=== PATIENT | male | born 1995 | race African-American/Black ===

== ENCOUNTER 2020-07-17 18:45 | Emergency (ER) | payer OTHER, SELFPAY ==
[2020-07-17 18:47] VITALS: PULSE 103; RESP 16; TEMP 36.8; O2SAT 97; BMI 40.2
--- NOTE | 2020-07-17 19:20 | RAD_ITS ---
STUDY: X-RAY - LUMBAR SPINE REASON FOR EXAM: Male, 25 years old. Injury/Pain TECHNIQUE: 2 view(s) of the lumbar spine were obtained. COMPARISON: None FINDINGS: Normal lumbar lordosis. There is no substantial scoliosis. There is a normal alignment of the vertebrae. Normal vertebral bodies and endplates. Normal disc space heights. The soft tissue structures are unremarkable. RAD/Lumbar Spine 2 or 3 Views IMPRESSION: Normal x-ray examination of the lumbar spine. Electronically Signed: Tiana Kitchen MD at 20:08 EST Tel , Service support ,
--- NOTE | 2020-07-17 19:28 | ED.VIS.BACK ---
History of Present Illness Chief Complaint: Back Informant: Patient Onset: Today Injury: Fall Quality: Sharp Location: Lumbar Narrative: Patient is a 25-year-old male with no significant past medical history presenting for evaluation after a low back injury. Patient tripped and fell down the entire flight of stairs earlier today. He states he slid down the stairs on his backside. He thinks he might of hit his head slightly on the stairs but did not have any loss of consciousness. Denies any headache or head injury. He is not on any anticoagulation. He is having significant pain in his lower back which is what brought him in. He took 400 mg of ibuprofen about 6 hours prior to arrival. He is having a hard time walking because of the pain and he feels that he cannot support himself because his back is weak. He does not really appreciate weakness of his legs. He notes he has some tingling in his bilateral groins but no perineal numbness. No reported incontinence. Patient initially went to urgent care but was told the x-ray machine was down so he came to our ER instead. Past Medical History - Allergies and Home Meds Allergies/Adverse Reactions: Allergies No Known Allergies Allergy (Verified 07/17/20 18:51) Primary Care Physician: Scarlet Neff DO [STAFF PHYSICIAN] - Past Medical History: None Surgical History: noncontributory Review of Systems General: Denies: Chills, Fever, Sweats Eyes: Denies: Visual changes - bilaterally, Diplopia ENT: Denies: Rhinorrhea, Sore throat Cardiovascular: Denies: Chest pain, Palpitations Respiratory: Denies: Dyspnea, Cough, Dyspnea on exertion Gastrointestinal: Denies: Abdominal pain, Nausea, Vomiting, Diarrhea, Melena, Hematochezia Genitourinary: Denies: Dysuria, Hematuria, Frequency Musculoskeletal: Reports: Myalgias - back , Back pain. Denies: Swelling, Extremity Pain Skin: Denies: Rash, Wounds Neurological: Reports: Weakness - legs . Denies: Headache, Numbness Physical Exam Vital Signs/Narrative: Vital Signs Temp Pulse Resp Pulse Ox 07/17/20 18:47 98.2 F 103 H 16 97 Inital Vital Signs reviewed: Yes General: Well nourished, Well developed Head: Normocephalic, Atraumatic Eyes: Perrl, EOMI ENT: Moist mucous membranes, No rhinorrhea Neck: Supple, Nontender Cardiovascular: Regular rate, Regular rhythm, No murmurs Respiratory: No distress, CTA bilaterally, Chest nontender Abdomen: Soft, Nontender, Nondistended, Normal bowel sounds. Negative for: Guarding, Rebound tenderness Rectal: Deferred Back: Paraspinal Tenderness - left lumbar , Negative SLR - Right, Negative SLR - Left, - - hematoma left lower lumbar region . Negative for: Spinal tenderness, CVA tenderness Extremeties: Nontender, No edema Skin: Normal color, No rash Neuro: Alert, Oriented, Normal Strength, Normal Sensation, Normal DTR, - - Slow, painful gait. No foot drop appreciated.. Negative for: Parasthesia Psychological: Normal affect Diagnostic/Tx/Re-eval Clinical Impression(s) from Imaging Studies Lumbar Spine X-Ray 07/17/20 19:20 IMPRESSION: Normal x-ray examination of the lumbar spine. Electronically Signed: Tiana Kitchen MD at 20:08 EST Tel , Service support , - Medical Decision Making Patient is evaluated for back pain. He does not have any midline tenderness however given his mechanism injury I will obtain plain film. X-ray of the back performed. Is interpreted by myself as well as radiology. No acute process is seen. Patient is given a dose of IM morphine as well as Motrin for pain control. On reevaluation he is improved. He is able to ambulate in the ER. Patient does not have any red flag symptoms consistent with cauda equina syndrome. He is given return precautions including saddle anesthesia, worsening weakness of the legs or incontinence. Patient is counseled on signs and symptoms requiring return to the emergency room. Patient verbalizes agreement and understand this plan. Patient discharged home in stable and improved condition. ED Disposition - Plan for ED Patient: Disposition: Home or Assisted Living Diagnosis: Strain of lumbar spine, Lumbar contusion Instructions: ED Back Contusion Prescriptions: cycloBENZAPRine HCl [Flexeril] 10 mg PO TID PRN #20 tab PRN Reason: Muscle Spasm Prescription Printed Referrals: Scarlet Neff DO [STAFF PHYSICIAN] - Additional Instructions: Alternate 600 mg of ibuprofen and 650 mg of Tylenol every 6 hours for pain. Apply moist heat to your back. Return to the emergency room if you have increased difficulty walking, numbness in your genital region or incontinence.
[2020-07-17] MEDS: Morphine 4 MG/ML Syringe 6 MG IM (19:29)
[2020-07-17] MEDS: Ibuprofen 600 MG Tablet PO (19:29)
== END 2020-07-17 21:09 | disposition home or self-care (01) ==
PROVIDERS: Emergency Provider Emergency Medicine
DX: S39.012A Strain of muscle, fascia and tendon of lower back, initial encounter (principal); S30.0XXA Contusion of lower back and pelvis, initial encounter; W10.9XXA Fall (on) (from) unspecified stairs and steps, initial encounter; Y93.9 Activity, unspecified; Y92.9 Unspecified place or not applicable
CPT/HCPCS: 72100; 96372; 99283

== ENCOUNTER 2020-12-02 09:25 | Emergency (ER) | payer OTHER, SELFPAY ==
[2020-12-02] VITALS (7 sets, daily range): BP systolic 171–182; BP diastolic 111–132; PULSE 89–104; RESP 16–166; TEMP 36.2; O2SAT 95–100; BMI 34.7
--- NOTE | 2020-12-02 09:43 | EKG12_ITS ---
Test Reason : CP Blood Pressure : / mmHG Vent. Rate : 097 BPM Atrial Rate : 097 BPM P-R Int : 124 ms QRS Dur : 100 ms QT Int : 382 ms P-R-T Axes : 034 008 009 degrees QTc Int : 485 ms Normal sinus rhythm Cannot rule out Anterior infarct , age undetermined Abnormal ECG Confirmed by NANY HAYS, NEREYDA ([id number]), photography editor JARAD ESTRADA ([id number]) on 12/07/2020 9:08:45 AM Referred By: PAWEL Confirmed By:FRANCK AYON MD
[2020-12-02] MEDS: Aspirin 81 MG TAB.CHEW 324 MG PO (09:51)
--- NOTE | 2020-12-02 09:52 | RAD_ITS ---
STUDY: X-RAY CHEST REASON FOR EXAM: Male, 25 years old. Chest pain TECHNIQUE: Single AP portable view of the chest. COMPARISON: None. FINDINGS: EKG electrodes are seen. The lungs are clear and expanded. There is no demonstrated pleural abnormality. There is borderline cardiomegaly. Normal mediastinum and bharath. Normal visualized pulmonary arteries. Normal visualized aortic arch and descending thoracic aorta. Normal visualized thoracic spine. Normal visualized ribs, clavicles, and shoulders. There is no demonstrated abnormality of the visualized soft tissue structures of the upper abdomen. RAD/Chest 1 View (Portable) IMPRESSION: Borderline cardiomegaly. Electronically Signed: Matt Harris MD at 10:46 EDT , Service support ,
[2020-12-02 09:57] LABS: Absolute Lymphocyte Count 1.64 X10^3/uL (0.83-4.51); Absolute Neutrophil Count 3.6 X10^3/uL (2.0-7.7); Basophil# 0.08 X10^3/uL; Basophil% 1.3 % (0-1); Eosinophil# 0.29 X10^3/uL; Eosinophils% 4.7 % (0-5); Hematocrit 41.1 % (40-54); Hemoglobin 13.7 g/dL (13.0-16.5); Lymphocyte # 1.64 X10^3/ul (0.83-4.51); Lymphocyte % 26.7 % (19-41); Mean Corp Hgb Conc 33.3 g/dL (32-36); Mean Corpuscular Hgb 30.3 pg (27.0-32.0); Mean Corpuscular Volume 90.9 fL (80-94); Mean Platelet Vol. 10.7 fl (6.2-12.0); Monocyte# 0.53 X10^3/uL; Monocyte% 8.6 % (0-10); NRBC Flagged by Analyzer 0 % (0-5); Neutrophil # 3.56 X10^3/uL (2.7-7.7); Platelet Count 298 K/mm3 (150-450); RBC Distribution Width CV 11.9 % (11.6-14.6); RBC Distribution Width SD 39.5 fl (35.1-43.9); Red Blood Count 4.52 M/mm3 (4.6-6.2); White Blood Count 6.1 K/mm3 (4.4-11.0)
[2020-12-02 10:09] LABS: Anion Gap 8 (5-15); BUN 11 mg/dL (7-18); BUN/Creat Ratio 7.3 RATIO (10-20); Calcium,Total 9.1 mg/dL (8.5-10.1); Chloride 105 mmol/L (98-107); EST Glomerular Filtration Rate 59 mL/min (>60); Est Glom Filt Rate - Afr Amer 72 mL/min (>60); Estimated Creatinine Clearance 73.97 ml/min; Glucose 95 mg/dL (74-106); Potassium 3.7 mmol/L (3.5-5.1); Sodium Level 138 mmol/L (136-145)
--- NOTE | 2020-12-02 10:15 | EDS_ITS ---
HPI History of Present Illness Chief Complaint: Chest Pain Informant: patient and spouse/S.O. Onset/Context/Timing Onset: Today and Hours Activity at onset: sudden and light activity (Patient states he was getting ready for work) Timing: Continuous Quality: Positive for Pressure Location: Substernal Current Severity: Mild Maximum Severity: Moderate Worsened By: Nothing Relieved By: Nothing Associated Symptoms: Positive for Nausea, Diaphoresis, Dyspnea and Lightheadedness; Negative for Vomiting, Cough, Fever, Acid Reflux and Palpitations Narrative Narrative: Patient is a 25-year-old male who presents with midsternal chest heaviness that started this morning while getting ready for work. It was associated with dyspnea, diaphoresis and lightheadedness. There was also mild nausea initially. He is still having discomfort. The discomfort is no different than onset. Nothing exacerbated or makes it better. He denies black stool presently. He has had intermittent black stool because he has been taking Pepto-Bismol. He takes Pepto-Bismol because he has chronic diarrhea. There is a strong family history coronary disease at a young age, 30s. Patient denies fever, chills night sweats. He denies rhinorrhea, congestion postnasal drainage. He denies sore throat. [place] decreased hearing or ringing in his ears. He denies loss of taste or smell. He denies history of PE or DVT. He denies leg pain, swelling discoloration. He denies trauma. He denies back pain. Prior Similar Symptoms: No Recent Illness/Hospitalization: No CVD Risk Factors: Positive for Hypertension and Family History 1' </=55; Negative for Diabetes, Hypercholesterolemia and Smoking PE Risk Factors: Negative for Recent Travel/Surgery, Recent Immobilization, Prior DVT or PE, Cancer and OCP + Smoking + >/=35 TAD Risk Factors: Positive for Hypertension; Negative for Marfan's Syndrome and Family History [facility] Medical History Hypertension Home Medications cyclobenzaprine 10 mg PO TID PRN #20 tab 07/17/20 [Rx Last Taken Unknown] multivitamin with minerals 1 ea PO DAILY 07/17/20 [History Last Taken Unknown] omeprazole 20 mg PO DAILY 07/17/20 [History Last Taken Unknown] famotidine 20 mg PO QODAY 12/02/20 [History Last Taken Unknown] hydrochlorothiazide 12.5 mg PO DAILY #30 tab 12/02/20 [Rx Last Taken Unknown] lisinopril 20 mg PO DAILY 12/02/20 [History Last Taken Unknown] sucralfate 1 g PO DAILY 12/02/20 [History Last Taken Unknown] trazodone 50 mg PO QHS 12/02/20 [History Last Taken Unknown] Allergy/AdvReac Type Severity Reaction Status Date / Time No Known Allergies Allergy Verified 07/17/20 18:51 Social History (Updated 12/02/20 @ 10:[address] Sampson Suárez MD) household members: spouse Smoking Status: Current every day smoker tobacco type: e-cigarettes alcohol intake: current alcohol intake frequency: 0-2 drinks per day substance use type: does not use ROS ROS ED Constitutional Constitutional ED: Denies chills, fever(s), subjective, sweats or weight loss Eyes Eyes: Denies blurry vision or change in vision ENT ENT ED: Denies ear pain, rhinorrhea or sore throat Cardiovascular Cardiovascular: Reports as per HPI; Denies orthopnea, palpitations, paroxysmal nocturnal dyspnea or racing heartbeat Respiratory/Chest Respiratory/Chest: Reports dyspnea; Denies cough, dyspnea on exertion, orthopnea, paroxysmal nocturnal dyspnea or sputum Gastrointestinal Gastrointestinal: Reports melena and nausea; Denies abdominal pain, diarrhea or vomiting Genitourinary Genitourinary ED: Denies dysuria, hematuria or urinary frequency Musculoskeletal Musculoskeletal: Denies arthralgias, back pain, myalgias or neck pain Integumentary Denies abscess, Abrasions or rash Neurologic Neurologic: Denies headache(s), paresthesias or weakness Psychiatric Psychiatric: Denies anxiety or depression Endocrine Endocrinology: Denies polydipsia, polyphagia or polyuria Hematologic/Lymphatic Hematologic/Lymphatic: Denies easy bleeding or easy bruising EXAM Physical Exam Const Vital Signs: 12/02/20 09:26 12/02/20 09:53 12/02/20 11:00 Temperature 97.1 F L Temperature Source Temporal Pulse Rate 104 H 96 Respiratory Rate 16 26 H Blood Pressure 182/132 H 182/111 H Blood Pressure Mean 148 134 Pulse Ox 99 97 95 Oxygen Delivery Method Room Air Room Air Room Air 12/02/20 12:31 12/02/20 13:18 12/02/20 14:25 Temperature Temperature Source Pulse Rate 97 99 89 Respiratory Rate 28 H 24 H 166 H Blood Pressure 175/120 H 173/123 H 171/117 H Blood Pressure Mean 138 139 135 Pulse Ox 98 100 97 Oxygen Delivery Method Room Air Room Air Room Air Positive well nourished and well developed General Appearance ED: well developed HEENT Reports moist mucous membranes normocephalic and atraumatic Eyes PERRL and EOMs intact bilaterally General Eye ED: Negative for pale conjunctiva or scleral icterus Neck no lymphadenopathy, supple and no JVD Chest Wall inspection of chest normal and palpation of chest normal Resp normal respiratory effort and clear to auscultation bilaterally Effort and Inspection: respiratory distress Cardio regular rate, regular rhythm, S1 normal heart sound, S2 normal heart sound and no murmurs GI normal to inspection, nondistended, normoactive bowel sounds, soft to palpation, non-tender and non-distended Back/Spine no CVA tenderness and no thoracic nor lumbar tenderness Extremity normal to inspection Extremity Narrative: There is no asymmetry, swelling, discoloration, leg vein distention, palpable cords or tenderness along the distribution of the deep venous system. Neuro oriented x3 and no sensory deficits noted Sensorium / Orientation: awake and alert Motor Exam: strength 5/5 throughout Psych mental status grossly normal Skin no rashes or lesions noted and no wounds Heart Score History: Moderately Suspicious ECG: Nonspecific Repolarization Age: </= 45 years Risk Factors: 1 or 2 Risk Factors Score: 3 MDM MDM MDM Narrative Medical decision making narrative: Differential diagnosis includes cardiac versus noncardiac etiology. This is different than his GERD. Will rule out cardiac. EKG, chest appropriate blood work including troponin and 2-hour troponin was order Patient was treated with clonidine for his elevated blood pressure. There was slight improvement. Plan is to place patient on hydrochlorothiazide and have his blood pressure checked in 1 to 2 weeks. He also Was instructed on the importance of the diet. Lab Data Attestation: I reviewed the patient's lab results. Lab results narrative: Repeat troponin is lower than the initial. Both troponins were normal. Patient's creatinine is elevated 1.5. GFR however is 72. CBC and H&H are unremarkable. Labs: Laboratory Results - last 24 hr 12/02/20 12/02/20 12/02/20 09:50 09:50 09:50 WBC 6.1 RBC 4.52 L Hgb 13.7 Hct 41.1 MCV 90.9 MCH 30.3 MCHC 33.3 RDW Std Deviation 39.5 RDW Coeff of [place] 11.9 Plt Count 298 MPV 10.7 Immature Gran % (Auto) 0.700 Neut % (Auto) 58.0 Lymph % (Auto) 26.7 [place] % (Auto) 8.6 Eos % (Auto) 4.7 Baso % (Auto) 1.3 H Absolute Neuts (auto) 3.6 Absolute Lymphs (auto) 1.64 Nucleated RBC % 0 Sodium 138 Potassium 3.7 Chloride 105 Carbon Dioxide 25.0 Anion Gap 8 BUN 11 Creatinine 1.50 H Estim Creat Clear Calc 73.97 Est GFR (MDRD) Af Amer 72 Est GFR (MDRD) Non-Af 59 L BUN/Creatinine Ratio 7.3 L Glucose 95 Calcium 9.1 Troponin I High Sens 14.8 12/02/20 12:40 WBC RBC Hgb Hct MCV MCH MCHC RDW Std Deviation RDW Coeff of [place] Plt Count MPV Immature Gran % (Auto) Neut % (Auto) Lymph % (Auto) [place] % (Auto) Eos % (Auto) Baso % (Auto) Absolute Neuts (auto) Absolute Lymphs (auto) Nucleated RBC % Sodium Potassium Chloride Carbon Dioxide Anion Gap BUN Creatinine Estim Creat Clear Calc Est GFR (MDRD) Af Amer Est GFR (MDRD) Non-Af BUN/Creatinine Ratio Glucose Calcium Troponin I High Sens 13.4 Radiography Diagnostic Testing: Radiology Impression Chest X-Ray 12/02/20 09:52 IMPRESSION: Borderline cardiomegaly. Electronically Signed: Matt Harris MD at 10:46 EDT , Service support , EKG Initial EKG: Attestation: I personally reviewed and interpreted this EKG as follows: Interpretation: Sinus Rhythm (Normal sinus rhythm with ventricular rate 97. MN interval is 124 ms. Cures duration 100 ms. QT duration 382 ms. [place]am is normal. There is decreased anterior force with J-point elevation noted in the anterior leads.) Discharge Plan Triage Chief Complaint: Chest Pain Other Complaint: Dizziness ED Provider: Sampson Suárez Dx/Rx/DC Orders Clinical Impression: Pressure in chest, Accelerated essential hypertension Instructions: ED Chest Pain, Noncardiac, ED Hypertension, Established Prescriptions: New hydrochlorothiazide 12.5 mg tablet 12.5 mg PO DAILY Qty: 30 RF: 0 No Action multivitamin with minerals 1 EACH tablet 1 ea PO DAILY RF: 0 omeprazole 20 MG tablet,delayed release (DR/EC) 20 mg PO DAILY RF: 0 cyclobenzaprine 10 MG tablet 10 mg PO TID PRN (Reason: Muscle Spasm) Qty: 20 RF: 0 trazodone 50 mg tablet 50 mg PO QHS RF: 0 sucralfate 1 gram tablet 1 g PO DAILY RF: 0 lisinopril 20 mg tablet 20 mg PO DAILY RF: 0 famotidine 20 mg tablet 20 mg PO QODAY RF: 0 Primary Care Provider: Care Physician,No Primary Referrals: Care Physician,No Primary [Primary Care Provider] - Activity Restrictions/Additional Instructions: You should not add any salt to your food. You should check salt content. You should follow-up with your doctor in 1 to 2 weeks for repeat blood pressure check the prescriptionFor a new blood pressure med was written for and will cause you to have increased urination for the next 1 to 2 weeks.
[2020-12-02 10:20] LABS: Troponin-I HS 14.8 pg/mL (3.0-78.5)
[2020-12-02 13:00] LABS: Troponin-I HS 13.4 pg/mL (3.0-78.5)
[2020-12-02] MEDS: cloNIDine HCl 0.1 MG Tablet PO (13:17)
== END 2020-12-02 15:32 | disposition home or self-care (01) ==
LOC: ED 10:20
PROVIDERS: Emergency Provider Emergency Medicine
DX: R07.89 Other chest pain (principal); I10 Essential (primary) hypertension; K52.9 Noninfective gastroenteritis and colitis, unspecified; Z79.899 Other long term (current) drug therapy; F17.290 Nicotine dependence, other tobacco product, uncomplicated
CPT/HCPCS: 71045; 80048; 84484; 85025; 93005; 99285; A4216

== ENCOUNTER 2020-12-23 22:04 | Emergency (ER) | payer OTHER, SELFPAY ==
[2020-12-23 22:05] VITALS: BP 168/114; PULSE 99; RESP 18; TEMP 36.1; O2SAT 99; BMI 35.9
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
== END 2020-12-24 00:26 | disposition home or self-care (01) ==
PROVIDERS: Emergency Provider Student in an Organized Health Care Education/Training Program
DX: S50.871A Other superficial bite of right forearm, initial encounter (principal); S40.021A Contusion of right upper arm, initial encounter; Y04.1XXA Assault by human bite, initial encounter; Y93.9 Activity, unspecified; Y92.9 Unspecified place or not applicable; I10 Essential (primary) hypertension; K21.9 Gastro-esophageal reflux disease without esophagitis; K58.9 Irritable bowel syndrome, unspecified; Z79.899 Other long term (current) drug therapy; F17.290 Nicotine dependence, other tobacco product, uncomplicated
CPT/HCPCS: 99282

== ENCOUNTER 2021-05-18 06:47 | Inpatient (IN) | payer OTHER, SELFPAY ==
[2021-05-18] VITALS (11 sets, daily range): BP systolic 113–212; BP diastolic 77–156; PULSE 78–129; RESP 16–25; TEMP 36.3–36.7; O2SAT 96–100; BMI 34.1; BMI 34.7
--- NOTE | 2021-05-18 07:13 | RAD_ITS ---
STUDY: X-RAY CHEST REASON FOR EXAM: Male, 26 years old. Sob TECHNIQUE: Single AP portable view of the chest. COMPARISON: Comparison is made with prior study dated 12/02/2020. FINDINGS: EKG electrodes are seen. The lungs are clear and expanded. There is no demonstrated pleural abnormality. There is borderline cardiomegaly. Normal mediastinum and bharath. Normal visualized pulmonary arteries. Normal visualized aortic arch and descending thoracic aorta. Normal visualized thoracic spine. Normal visualized ribs, clavicles, and shoulders. There is no demonstrated abnormality of the visualized soft tissue structures of the upper abdomen. RAD/Chest 1 View (Portable) IMPRESSION: Borderline cardiomegaly. Electronically Signed: Matt Harris MD at 9:00 EST , Service support ,
--- NOTE | 2021-05-18 07:14 | EKG12_ITS ---
Test Reason : Blood Pressure : / mmHG Vent. Rate : 112 BPM Atrial Rate : 112 BPM P-R Int : 124 ms QRS Dur : 092 ms QT Int : 408 ms P-R-T Axes : 038 000 038 degrees QTc Int : 556 ms Sinus tachycardia Prolonged QT Abnormal ECG Confirmed by NAT HAYS, ALBERTO ([id number]), film and video editor JARAD ESTRADA ([id number]) on 05/19/2021 11:41:54 AM Referred By: RASHAUN Confirmed By:ALBERTO JOHNS MD
--- NOTE | 2021-05-18 07:33 | EDS_ITS ---
HPI History of Present Illness Chief Complaint: Suicidal Narrative Narrative: Patient presents about 8 hours or so since overdosing on about 20 tabs of Tylenol, about a cup of bleach and 2 L of vodka. He arrives via EMS, he is vomiting. He was at a hotel and woke up this morning afterwards in significant distress. He tells me he wanted to hurt himself because he ended a 2-year relationship and he has no one left in his life. Right now his only somatic complaint is feeling ill and anxious as well as quite nauseated. No hemoptysis. No other drugs. [facility] Medical History GERD (gastroesophageal reflux disease) Hypertension Irritable bowel syndrome (IBS) Pre-employment examination Home Medications omeprazole 20 mg PO DAILY 07/17/20 [History Last Taken Unknown] famotidine 20 mg PO QODAY 12/02/20 [History Last Taken Unknown] Allergy/AdvReac Type Severity Reaction Status Date / Time No Known Allergies Allergy Verified 05/18/21 06:49 Surgical History no surgical history Social History household members: spouse Smoking Status: Current every day smoker tobacco type: e-cigarettes alcohol intake: current alcohol intake frequency: 0-2 drinks per day substance use type: does not use ROS ROS ED ROS Narrative Past medical history: Reviewed Medications: Reviewed Social history: As in HPI Review of systems: All systems negative except as indicated General: No fever. He tells me he feels ill. Eyes: No visual changes ENT: No upper airway congestion, normal voice Neck: No neck pain Cardiovascular: No chest pain Respiratory: No shortness of breath or cough Gastrointestinal: No abdominal pain. He is complaining of nausea and vomiting no diarrhea Genitourinary: No dysuria Musculoskeletal: Denies myalgias no difficulty with ambulation Skin: No rash Neurological: No memory loss, confusion or any focal weakness Psych: SI as in HPI. He feels quite anxious Hematologic: No easy bleeding or easy bruising EXAM Physical Exam Narrative Exam Narrative: Physical exam General: Patient does appear in some distress. He is actively vomiting as I walk into the room Head: Normocephalic, Atraumatic Eyes: Conjunctiva not pale ENT: Somewhat dry mucous membranes Neck: Supple, Nontender, No lymphadenopathy Cardiovascular: Regular tachycardia. No obvious murmur Respiratory: No distress, CTA bilaterally Abdomen: Soft, Nontender, Nondistended Back: Nontender, Normal Inspection. Negative for: CVA tenderness Extremities: Nontender, No edema Skin: Normal color, No rash Neurological: Alert, Normal Strength, Normal Sensation Psychological: Normal affect Const Vital Signs: 05/18/21 06:52 05/18/21 10:48 Temperature 97.4 F L Temperature Source Temporal Pulse Rate 129 H 107 H Respiratory Rate 25 H 20 H Blood Pressure 212/156 H 199/132 H Blood Pressure Mean 174 154 Pulse Ox 100 99 Oxygen Delivery Method Room Air Room Air MDM MDM MDM Narrative Medical decision making narrative: Patient has a normal work-up, proved his nausea significantly improved he was observed in the ED, I asked psychiatric liaison for placement for suicidal ideations. Lab Data Labs: Laboratory Results - last 24 hr 05/18/21 05/18/21 05/18/21 07:00 07:00 07:00 WBC 9.2 RBC 5.69 Hgb 17.3 H Hct 49.5 MCV 87.0 MCH 30.4 MCHC 34.9 RDW Std Deviation 38.5 RDW Coeff of [place] 12.1 Plt Count 354 MPV 11.8 Immature Gran % (Auto) 0.400 Neut % (Auto) 78.6 H Lymph % (Auto) 13.7 L [place] % (Auto) 6.0 Eos % (Auto) 0.4 Baso % (Auto) 0.9 Absolute Neuts (auto) 7.3 Absolute Lymphs (auto) 1.26 Nucleated RBC % 0 Sodium 138 Potassium 3.0 L Chloride 99 Carbon Dioxide 26.0 Anion Gap 13 BUN 9 Creatinine 1.91 H Estim Creat Clear Calc 57.58 Est GFR (MDRD) Af Amer 54 L Est GFR (MDRD) Non-Af 45 L BUN/Creatinine Ratio 4.7 L Glucose 157 H Calcium 10.0 TSH 1.23 Salicylates < 1.7 L Urine Opiates Screen Urine Methadone Screen Acetaminophen < 2.0 L Ur Barbiturates Screen Ur Phencyclidine Scrn Ur Amphetamines Screen U Methamphetamin-MDMA U Benzodiazepines Scrn Urine Cocaine Screen U Cannabinoids Screen Ur Drug Screen Comment Ethyl Alcohol 05/18/21 05/18/21 07:00 07:30 WBC RBC Hgb Hct MCV MCH MCHC RDW Std Deviation RDW Coeff of [place] Plt Count MPV Immature Gran % (Auto) Neut % (Auto) Lymph % (Auto) [place] % (Auto) Eos % (Auto) Baso % (Auto) Absolute Neuts (auto) Absolute Lymphs (auto) Nucleated RBC % Sodium Potassium Chloride Carbon Dioxide Anion Gap BUN Creatinine Estim Creat Clear Calc Est GFR (MDRD) Af Amer Est GFR (MDRD) Non-Af BUN/Creatinine Ratio Glucose Calcium TSH Salicylates Urine Opiates Screen NEGATIVE Urine Methadone Screen NEGATIVE Acetaminophen Ur Barbiturates Screen NEGATIVE Ur Phencyclidine Scrn NEGATIVE Ur Amphetamines Screen NEGATIVE U Methamphetamin-MDMA NEGATIVE U Benzodiazepines Scrn NEGATIVE Urine Cocaine Screen NEGATIVE U Cannabinoids Screen NEGATIVE Ur Drug Screen Comment Ethyl Alcohol 7.0 ABG Data ABG results: ABG 05/18/21 08:51 Specimen Type JANNIE VBG pH 7.39 VBG pO2 34 VBG HCO3 28 H VBG Total CO2 29 VBG O2 Sat (Calc) 64 VBG Base Excess 3 POC Mix VBG pCO2 Pt Tmp 45.4 Radiography Diagnostic Testing: Clinical Impression(s) from Imaging Studies Chest X-Ray 05/18/21 07:13 IMPRESSION: Borderline cardiomegaly. Electronically Signed: Matt Harris MD at 9:00 EST , Service support , Discharge Plan Triage Chief Complaint: Suicidal ED Provider: Nash Lowe Dx/Rx/DC Orders Clinical Impression: Overdose, Suicide gesture Prescriptions: No Action omeprazole 20 MG tablet,delayed release (DR/EC) 20 mg PO DAILY RF: 0 famotidine 20 mg tablet 20 mg PO QODAY RF: 0 Primary Care Provider: Care Physician,No Primary Referrals: Care Physician,No Primary [Primary Care Provider] - Disposition Disposition: Transfer to Another Type HCF
[2021-05-18 07:48] LABS: Absolute Lymphocyte Count 1.26 X10^3/uL (0.83-4.51); Absolute Neutrophil Count 7.3 X10^3/uL (2.0-7.7); Basophil# 0.08 X10^3/uL; Basophil% 0.9 % (0-1); Eosinophil# 0.04 X10^3/uL; Eosinophils% 0.4 % (0-5); Hematocrit 49.5 % (40-54); Hemoglobin 17.3 g/dL (13.0-16.5); Lymphocyte # 1.26 X10^3/ul (0.83-4.51); Lymphocyte % 13.7 % (19-41); Mean Corp Hgb Conc 34.9 g/dL (32-36); Mean Corpuscular Hgb 30.4 pg (27.0-32.0); Mean Platelet Vol. 11.8 fl (6.2-12.0); Monocyte# 0.55 X10^3/uL; NRBC Flagged by Analyzer 0 % (0-5); Neutrophil # 7.25 X10^3/uL (2.7-7.7); Neutrophil % 78.6 % (47-70); Platelet Count 354 K/mm3 (150-450); RBC Distribution Width CV 12.1 % (11.6-14.6); RBC Distribution Width SD 38.5 fl (35.1-43.9); Red Blood Count 5.69 M/mm3 (4.6-6.2); White Blood Count 9.2 K/mm3 (4.4-11.0)
[2021-05-18] MEDS: LORazepam 2 MG/ML Syringe 0.5 MG IV (07:48)
[2021-05-18] MEDS: 0.9% Normal Saline 1,000 ML 999 ML IV (07:48)
[2021-05-18] MEDS: Ondansetron 4 MG/2 ML Vial IV ×2 (07:48→21:38)
[2021-05-18 08:01] LABS: Amphetamine Urine VISTA NEGATIVE (<1000 ng/mL); Barbiturate Urine VISTA NEGATIVE (< 200 ng/mL); Benzodiazepine Urine VISTA NEGATIVE (< 200 ng/mL); Cocaine Urine VISTA NEGATIVE (< 300 ng/mL); Ecstacy Urine VISTA NEGATIVE (< 500 ng/mL); Methadone Urine VISTA NEGATIVE (< 300 ng/mL); PCP Urine VISTA NEGATIVE (< 25 ng/mL); THC Urine VISTA NEGATIVE (< 50 ng/mL); Vista UDS pH Range 6
[2021-05-18 08:09] LABS: Anion Gap 13 (5-15); BUN 9 mg/dL (7-18); BUN/Creat Ratio 4.7 RATIO (10-20); Chloride 99 mmol/L (98-107); Creatinine, Serum 1.91 mg/dL (0.70-1.30); EST Glomerular Filtration Rate 45 mL/min (>60); Est Glom Filt Rate - Afr Amer 54 mL/min (>60); Estimated Creatinine Clearance 57.58 ml/min; Glucose 157 mg/dL (74-106); Sodium Level 138 mmol/L (136-145); Thyroid Stim Hormone (TSH) 1.23 uIU/mL (0.358-3.74)
[2021-05-18 08:14] LABS: Acetaminophen (Tylenol) Level < 2.0 ug/mL (10.0-30.0); Salicylate < 1.7 mg/dL (2.8-20.0)
[2021-05-18] MEDS: Labetalol (Prefilled) 20 MG/4 ML IV (08:21)
[2021-05-18 08:56] LABS: Blood Gas Specimen Type VEN; VBG BASE EXCESS 3 mmol/L (-1.0-3.5); VBG Bicarbonate 28 mmol/L (22-26); VBG PO2 34 mmHg (25-40); VBG SO2 64 % (50-70); VBG TCO2 29 mmol/L (23-33); VBG pCO2 45.4 mmHg (41-51); VBG pH 7.39 (7.32-7.42)
[2021-05-18] MEDS: Metoclopramide 10 MG/2 ML Vial IV (10:00)
[2021-05-18] MEDS: DiphenhydrAMINE 50 MG/ML Syringe 25 MG IV (10:00)
[2021-05-18] MEDS: Famotidine 200 MG/20 ML MDV 20 MG in 0.9% Normal Saline (Pres. free 8 ML 300 MG IV (10:07)
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
--- NOTE | 2021-05-18 10:57 | CM.ED ---
Addendum entered by Chantelle Bullard 05/18/21 11:58: ARNOLDO received phone call from [employer]. She requested EKG and patient's policy number. ARNOLDO faxed copy of EKG and policy number to [employer]. ARNOLDO called Mahnaz at [facility] and advised that SW had faxed EKG and policy number. ARNOLDO was advised by Yessi in Registration that [facility] confirmation is currently down so she is unable to confirm patient's insurance. Chanetlle TRINIDAD Original Note: ARNOLDO Note ARNOLDO called [facility] and spoke to Cebolla. They have beds. ARNOLDO faxed referral to [facility] for their review. Chantelle TRINIDAD
[2021-05-18] MEDS: hydroCHLOROthiazide 12.5mg 12.5 MG PO (11:30)
[2021-05-18] MEDS: Lisinopril 20 MG Tablet PO (11:31)
--- NOTE | 2021-05-18 12:56 | CM.ED ---
ARNOLDO Note ARNOLDO received call from Nicki at [facility]. Patient has had his insurance confirmed by staff at [facility]. Accepting MD is Michael. RN to RN is [phone]. Room to be assigned on admission. Nicki requested updated blood pressure. ARNOLDO faxed blood pressure results to Nicki. Nicki stated that she will speak to [facility] regarding what they want to do in regards to patient's blood pressure. [facility] is unable to provide transport at this time. ARNOLDO will continue to be available for discharge planning. Chantelle TRINIDAD
[2021-05-18] MEDS: Metoprolol Tartrate 100 MG Tablet PO (13:31)
--- NOTE | 2021-05-18 14:10 | CM.ED ---
SW Note ARNOLDO spoke to Nicki at [facility]. Their JOURNEYMAN ELECTRICIAN PV INSTALLER wanted patient's BP to be under 150/100. At 2pm the BP was 187/143. ARNOLDO updated Nicki at [facility]. Chantelle TRINIDAD
--- NOTE | 2021-05-18 14:25 | CM.ED ---
ARNOLDO Note RN Mirian advised that patient is being admitted. ARNOLDO called Nicki at [facility] [phone]. Advised that patient is being admitted. Nicki stated that she feels the facility will be ok with having a preliminary acceptance for a few days but to just keep them updated about his status. ARNOLDO spoke with patient and updated him that he will be admitted to the acute unit. ARNOLDO updated RN that Nicki from [facility] state that she felt the facility would be ok with having a preliminary acceptance of patient for a few days. Plan: Patient will need to be pink slipped from acute to accepting facility at discharge. Chantelle TRINIDAD
[2021-05-18] MEDS: hydrALAZINE 20 MG/ML Vial IV (14:41)
--- NOTE | 2021-05-18 14:53 | NURSING ---
pcu obs elgin hypertension
--- NOTE | 2021-05-18 15:02 | HP.PCM.HOS_ITS ---
HPI - General General Date of Admission: 05/18/21 Date of Service: 05/18/21 Chief Complaint: Intentional OD HPI Narrative EDU WILCOX, is a 26 M who presented to the emergency department at [facility] on 05/18/2021 this morning after overdosing on 20 tablets of Tylenol, a cup of bleach and vodka. Upon arrival to the emergency department at 730 this morning. He was vomiting and having hematemesis. He states he consumed the above at approximately 1030 last night and awoke at about 130 or 2 with intense abdominal pain nausea and vomiting with hematemesis. His symptoms continued and at about 6:00 this morning he called the squad to get help as he continued to feel ill. Apparently he attempted to hurt himself secondary to the end of a 2-year relationship and he feels he has no one left in his life. He is an [employer] . Upon arrival he continued to feel quite nauseated and had elevated blood pressure. I was actually called for admission for persistently elevated high blood pressure. The patient indicates that he has been on antihypertensives in the past but stopped taking them approximately a year ago. He does not give a reason for discontinuing these. It appears from previous records he had been on lisinopril. He was treated symptomatically in the emergency department and his symptoms improved and he was given a diet with the intent to discharge him to a psychiatric hospital but his blood pressure remained elevated and they wanted his systolic pressure persistently less than 150 prior to excepting him. He was afebrile throughout his ED visit he had intermittent tachycardia with his heart rate maximally at 129, his blood pressure remained consistently elevated from 138/212 systolic over 156/101 diastolic his heart rate respiratory rate and oxygen saturation were normal. His CBC was overall unremarkable with a hemoglobin of 17.3. His BMP shows a mild hypokalemia with potassium of 3.0, BUN of 9 and a serum creatinine of 1.91. He had lab work done in November of this year and his serum creatinine was 1.5 at that time. A liver panel was not obtained. His TSH was normal and his serum glucose was 157. Talk screen was done and shows negative for salicylates and acetaminophen with no other substances on board other than an alcohol level of 7. His chest x-ray is unremarkable. His EKG shows no signs of ST-T wave changes consistent with ischemia but does show marked LVH. He has been accepted to a psychiatric facility but his blood pressures remain elevated and we were therefore called for admission to obtain improved blood pressure control prior to discharge. [facility] Medical History (Updated 05/18/21 @ 15:[address] Veena Anderson DO) GERD (gastroesophageal reflux disease) Hypertension Irritable bowel syndrome (IBS) Pre-employment examination PUD (peptic ulcer disease) Stage 3b chronic kidney disease (CKD) Tobacco abuse Home Medications hydrochlorothiazide 25 mg PO DAILY 05/18/21 [History Last Taken 2 Weeks Ago ~05/04/21] lisinopril 20 mg PO DAILY 05/18/21 [History Last Taken 2 Weeks Ago ~05/04/21] omeprazole 40 mg PO DAILY 05/18/21 [History Last Taken 2 Weeks Ago ~05/04/21] sucralfate 1 g PO 4X/DAY 05/18/21 [History Last Taken 2 Weeks Ago ~05/04/21] Allergy/AdvReac Type Severity Reaction Status Date / Time No Known Allergies Allergy Verified 05/18/21 06:49 Family History (Updated 05/18/21 @ 15:[address] Veena Anderson DO) Other Diabetes Hypertension Surgical History no surgical history no surgical history Social History household members: spouse Smoking Status: Current every day smoker tobacco type: e-cigarettes alcohol intake: current alcohol intake frequency: 0-2 drinks per day substance use type: does not use ROS Constitutional Constitutional: Denies anorexia, change in weight, chills, fatigue, fever(s), malaise, night sweats, weakness or other Eyes Eyes: Denies blurry vision, change in eye color, change in vision, discharge from eye(s), double vision, erythema, eye pain, loss of vision or other ENT HEENT: Denies abnormal hearing, dysphagia, ear pain, epistaxis, headache(s), hearing loss, nasal congestion, nasal discharge, post nasal drip, sinus pressure, sore throat or other Cardiovascular Cardiovascular: Denies chest pain, claudication, dyspnea on exertion, edema, lightheadedness, orthopnea, palpitations, paroxysmal nocturnal dyspnea, rapid heart rate, syncope or other Respiratory/Chest Respiratory/Chest: Denies cough, dyspnea, excessive phlegm production, hemoptysis, productive cough, shortness of breath at rest, shortness of breath with exertion, wheezing or other Gastrointestinal Gastrointestinal: Reports abdominal pain, dyspepsia, hematemesis, nausea and vomiting; Denies coffee ground emesis, constipation, diarrhea, hematochezia, loose stools, melena or other Genitourinary Genitourinary: Denies burning urination, difficulty urinating, dysuria, hematuria, nocturia, urinary frequency, urinary hesitancy, urinary incontinence, urinary urgency or other Musculoskeletal Musculoskeletal: Denies arthralgias, back pain, joint pain, joint stiffness, joint swelling, myalgias, neck pain or other Neurologic Neurologic: Denies abnormal gait, abnormal speech, confusion, disequilibrium, dizziness, focal weakness, headache(s), numbness, paresthesias, seizure-like activity, seizures, syncope, tingling, tremor(s) or other Psychiatric Psychiatric: Reports depression and suicidal ideation; Denies anxiety, homicidal ideation or other Endocrine Endocrinology: Denies change in body appearance, cold intolerance, excessive sweating, heat intolerance, polydipsia, polyuria or other Hematologic/Lymphatic Hematologic/Lymphatic: Denies anemia, easy bleeding, easy bruising, lymphadenopathy or other Allergic/Immunologic Allergic/Immunologic: Denies rhinitis, hives, eczemia, asthma or other Vital Signs Vital Signs Vital Signs: 05/18/21 06:52 05/18/21 10:48 05/18/21 11:56 Temperature 97.4 F L Temperature Source Temporal Pulse Rate 129 H 107 H 88 Respiratory Rate 25 H 20 H 16 Blood Pressure 212/156 H 199/132 H 138/101 H Blood Pressure Mean 174 154 113 Pulse Ox 100 99 99 Oxygen Delivery Method Room Air Room Air Room Air 05/18/21 12:46 Temperature Temperature Source Pulse Rate 113 H Respiratory Rate 18 Blood Pressure 198/141 H Blood Pressure Mean 160 Pulse Ox 96 Oxygen Delivery Method Room Air Weight Weight: 104.8 kg Body Mass Index (BMI) 34.1 Physical Exam Const alert, oriented x3, no apparent distress, healthy appearing and well nourished Constitutional Narrative: Overweight, Young -[place] male lying in bed, appears comfortable and nontoxic, very pleasant, sitter at bedside General Appearance: cooperative HEENT normocephalic, head/scalp atraumatic, hearing grossly normal bilaterally and moist oral mucous membranes HEENT Narrative: Dentition is good, Mallampati is 2-3, no mucosal abnormalities noted in the posterior pharynx Eyes PERRL, EOMs intact bilaterally and conjunctivae normal Eyes Narrative: No scleral icterus Neck no lymphadenopathy, supple, no JVD and no carotid bruits Neck Narrative: Trachea midline, no thyroid enlargement noted Resp normal respiratory effort, no retractions, no use of accessory muscles and clear to auscultation bilaterally Auscultation: Negative for crackles, rales, rhonchi or wheezes Cardio regular rhythm, S1 normal heart sound, S2 normal heart sound, no murmurs, no rub, no clicks and no JVD; Negative for no gallops Cardio Narrative: Mild tachycardia, S4 gallop GI normal to inspection, nondistended, normoactive bowel sounds, soft to palpation and non-distended; Negative for hepatosplenomegaly Palpation: tender epigastric Extremity no clubbing, cyanosis or edema Peripheral Pulses: Yes pulses 2+ throughout Skin no rashes or lesions noted, no wounds, skin turgor normal, no jaundice, no petechiae and no mottling Neuro oriented x3, CN's II-XII intact bilaterally, moves all extremities and no focal motor deficits Sensorium / Orientation: awake and alert Speech: speech normal Motor Exam: strength 5/5 throughout Psych affect normal Results Lab / Micro Data Result Diagrams: 05/18/21 07:00 05/18/21 07:00 Labs: Laboratory Results - last 24 hr 05/18/21 07:00: Salicylates < 1.7 L, Acetaminophen < 2.0 L 05/18/21 07:00: Sodium 138, Potassium 3.0 L, Chloride 99, Carbon Dioxide 26.0, Anion Gap 13, BUN 9, Creatinine 1.91 H, Estim Creat Clear Calc 57.58, Est GFR (MDRD) Af Amer 54 L, Est GFR (MDRD) Non-Af 45 L, BUN/Creatinine Ratio 4.7 L, Glucose 157 H, Calcium 10.0, TSH 1.23 05/18/21 07:00: WBC 9.2, RBC 5.69, Hgb 17.3 H, Hct 49.5, MCV 87.0, MCH 30.4, MCHC 34.9, RDW Std Deviation 38.5, RDW Coeff of [place] 12.1, Plt Count 354, MPV 11.8, Immature Gran % (Auto) 0.400, Neut % (Auto) 78.6 H, Lymph % (Auto) 13.7 L, [place] % (Auto) 6.0, Eos % (Auto) 0.4, Baso % (Auto) 0.9, Absolute Neuts (auto) 7.3, Absolute Lymphs (auto) 1.26, Nucleated RBC % 0 05/18/21 07:00: Ethyl Alcohol 7.0 05/18/21 07:30: Urine Opiates Screen NEGATIVE, Urine Methadone Screen NEGATIVE, Ur Barbiturates Screen NEGATIVE, Ur Phencyclidine Scrn NEGATIVE, Ur Amphetamines Screen NEGATIVE, U Methamphetamin-MDMA NEGATIVE, U Benzodiazepines Scrn NEGATIVE, Urine Cocaine Screen NEGATIVE, U Cannabinoids Screen NEGATIVE, Ur Drug Screen Comment Micro: Microbiology 05/18/21 08:17 Nasal Secretion SARS-CoV-2 Antigen (Rapid) - Final ABG Data ABG results: ABG 05/18/21 08:51 Specimen Type JANNIE VBG pH 7.39 VBG pO2 34 VBG HCO3 28 H VBG Total CO2 29 VBG O2 Sat (Calc) 64 VBG Base Excess 3 POC Mix VBG pCO2 Pt Tmp 45.4 Radiology Impression Chest X-Ray 05/18/21 07:13 IMPRESSION: Borderline cardiomegaly. Electronically Signed: Matt Harris MD at 9:00 EST , Service support , Assessment & Plan Assessment/Plan (1) Overdose: (2) Suicide gesture: (3) JULIANNA (acute kidney injury): (4) Bleach ingestion: (5) Accelerated essential hypertension: (6) Hypokalemia: PLAN: Intentional overdose -Patient consumed marked amounts of alcohol, 20 tablets of Tylenol and bleach last evening at around 1030 to 11 PM -Tylenol level is less than 2 and therefore given timeframe should be out of the window for any danger related to Tylenol overdose -We will check liver functions and repeat Tylenol level in a.m. -Most concerning of the overdoses is the bleach. -Did have episodes of hematemesis prior to presentation -Cycle hemoglobin x2 for stability -No current signs of GI bleeding -Protonix drip with bolus -Continue home Carafate -GI consultation for probable EGD--> Case was discussed with GI -N.p.o. -Continue sitter -We will need psychiatric facility at discharge--> Case management following JULIANNA on CKD stage IIIb -Baseline serum creatinine appears to be 1.5 -Current serum creatinine is 1.9 -We will give 1 L normal saline at 75 cc/h -Repeat lab in a.m. -Suspect CKD may be related to uncontrolled hypertension Uncontrolled hypertension -Patient is n.p.o. -Labetalol 40 mg every 4 hours scheduled with hold parameters -Hydralazine 10 mg every 6 hours scheduled with hold parameters -Transition to oral medications once esophagus is cleared by GI -Needs a goal systolic less than 150 consistently to go to psychiatric facility -Appears from previous records patient had been on lisinopril in the past Hypokalemia -40 mill equivalents IV potassium bolus -Recheck in a.m. -Check a magnesium level Hyperglycemia -Patient with family history of diabetes -Check hemoglobin A1c Suicidal ideation with attempt -Sitter -Psychiatric facility at discharge -Management is following History of tobacco abuse -Vapes at baseline -Assess for nicotine replacement therapy DVT prophylaxis -None -Risk is low -Patient with hematemesis as well therefore relatively contraindicated -Early mobilization CODE STATUS -Full code Charges/Coding Visit Charges Inpatient E&M: 57715 Init Hosp L3
--- NOTE | 2021-05-18 15:26 | ED.RN ---
UNABLE TO COMPLETE AMISSION ASSESSMENT D/T CCOMPUTER ISSUES. PT CCURRENT BP AT 152/94, 92,18
--- NOTE | 2021-05-18 15:51 | ED.RN ---
PT ACCEPTANCE AT [facility] WILL REMAIN ACTIVE FOR 24-48 HOURS
[2021-05-18 16:05] LABS: AST(SGOT) 119 U/L (15-37); Alanine Aminotransfer ALT/SGPT 188 U/L (16-61); Albumin, Serum 3.7 g/dL (3.2-5.0); Alkaline Phosphatase 103 U/L (45-117); Bilirubin, Direct 0.23 mg/dL (0.00-0.30); Globulin 5.5 g/dL (2.2-4.2); Protein, Total 9.2 g/dL (6.4-8.2)
--- NOTE | 2021-05-18 16:11 | CHAPLAIN ---
Type of Pastoral Visit ___ Initial Visit ___ Follow-up Visit ___ On-call Visit ___ General Patient Visit ___ Spiritual Assessment ___ Family Conference ___ Bereavement ___ Rapid Response ___ Code Blue ___ Other (describe below) Pastoral Care Referral From ___ Patient ___ Family ___ Nurse ___ Physician ___ Trimming Inspector ___ Insole And Outsole Preparer ___ Other (describe below) Sacrament/Intervention ___ Active listening ___ Anointing ___ Gnosticism ___ Bereavement ___ Communion ___ Elis exploration ___ ___ Life review ___ Prayer ___ Reconciliation ___ Sacrament of Sick ___ Supportive presence ___ Wedding ___ Other (describe below) Pastoral Comments patient was assigned to 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
--- NOTE | 2021-05-18 18:06 | CON.PCM.GI_ITS ---
HPI Consult Data Date of Consult: 05/18/21 HPI Narrative HPI Narrative: EDU WILCOX, is a 26 M who presents to [facility] emergency department after trying to commit suicide patient related to taking 20 tablets of Tylenol with a Styrofoam cup of bleach and a Styrofoam cup of vodka. Patient tried the commit suicide after breaking up with his significant other. He is an [employer] . At this time he is having some mild shaking. He says that he has been drinking more than he normally has in the past. He has no history of alcoholism, acute or chronic hepatitis, alcoholic hepatitis and no previous suicide attempts. In the ED he was no to be hypertensive and tachycardic. He was also noted to have mild renal insufficiency. His salicylate level in the emergency room was normal and his alcohol level was 7. At this time he is experiencing some mild chest discomfort and some esophageal dysphagia. All other 16 review of systems are negative except the pertinent positive mentioned HPI. [facility] Medical History GERD (gastroesophageal reflux disease) Hypertension Irritable bowel syndrome (IBS) Pre-employment examination PUD (peptic ulcer disease) Stage 3b chronic kidney disease (CKD) Tobacco abuse Home Medications hydrochlorothiazide 25 mg PO DAILY 05/18/21 [History Last Taken 2 Weeks Ago ~05/04/21] lisinopril 20 mg PO DAILY 05/18/21 [History Last Taken 2 Weeks Ago ~05/04/21] omeprazole 40 mg PO DAILY 05/18/21 [History Last Taken 2 Weeks Ago ~05/04/21] sucralfate 1 g PO 4X/DAY 05/18/21 [History Last Taken 2 Weeks Ago ~05/04/21] Allergy/AdvReac Type Severity Reaction Status Date / Time No Known Allergies Allergy Verified 05/18/21 06:49 Family History (Updated 05/18/21 @ 15:[address] Veena Anderson DO) Other Diabetes Hypertension Surgical History no surgical history Social History household members: spouse Smoking Status: Current every day smoker tobacco type: e-cigarettes alcohol intake: current alcohol intake frequency: 0-2 drinks per day substance use type: does not use ROS Review of Systems ROS Unobtainable: other Constitutional Constitutional: Denies fatigue, fever(s), poor appetite, weight gain or weight loss ENT HEENT: Denies mouth lesions Cardiovascular Cardiovascular: Denies abdominal bloating, abdominal edema or abdominal pain Respiratory/Chest Respiratory/Chest: Denies change in mental status, change in phlegm color, chest congestion or chest tightness Gastrointestinal Gastrointestinal: Denies belching, bloating, change in bowel habits, change in stool character, chewing difficulty, coffee ground emesis, constipation, cramping, diarrhea, dyspepsia, dysphagia, early satiety, excessive flatus, fecal incontinence, heartburn, hematemesis, hematochezia, hemorrhoids, loose stools, m alexandru, nausea, odynophagia, rectal bleeding, tenesmus, vomiting or weight changes Genitourinary Genitourinary: Denies abdominal discomfort, burning urination or itching Musculoskeletal Musculoskeletal: Reports as per HPI; Denies muscle weakness or myalgias Integumentary Integumentary: Denies jaundice Neurologic Neurologic: Denies lack of coordination or weakness Psychiatric Psychiatric: Denies confusion, depression, memory loss, mood swings, paranoia or suicidal ideation Endocrine Endocrinology: Denies systems reviewed and no addt'l complaints, except as documented Hematologic/Lymphatic Hematologic/Lymphatic: Denies anemia, easy bleeding, easy bruising or l ymphadenopathy Allergic/Immunologic Allergic/Immunologic: Denies systems reviewed and no addt'l complaints, except as documented Physical Exam Const alert General Appearance: cooperative Orientation / Consciousness: oriented to person HEENT hearing grossly normal bilaterally Head and Scalp: normal to inspection Face and Sinus: face symmetric Nose: external nose normal Mouth: oral and palatal mucosa normal Eyes conjunctivae normal General Eye: normal appearance of both eyes Neck full ROM General: normal visual inspection Lymph Lymphatic: no lymphadenopathy noted Chest inspection of chest normal and palpation of chest normal Chest: symmetrical chest wall rise Resp normal respiratory effort Effort and Inspection: able to speak in complete sentences Cardio regular rate GI non-distended Percussion: normal to percussion Rectal Exam: deferred Neuro Speech: speech normal Gait (Neuro): normal gait Lab / Micro Data Result Diagrams: 05/18/21 07:00 05/18/21 07:00 Labs: Laboratory Results - last 24 hr 05/18/21 07:00: Salicylates < 1.7 L, Acetaminophen < 2.0 L 05/18/21 07:00: Sodium 138, Potassium 3.0 L, Chloride 99, Carbon Dioxide 26.0, Anion Gap 13, BUN 9, Creatinine 1.91 H, Estim Creat Clear Calc 57.58, Est GFR (MDRD) Af Amer 54 L, Est GFR (MDRD) Non-Af 45 L, BUN/Creatinine Ratio 4.7 L, Glucose 157 H, Calcium 10.0, TSH 1.23 05/18/21 07:00: WBC 9.2, RBC 5.69, Hgb 17.3 H, Hct 49.5, MCV 87.0, MCH 30.4, MCHC 34.9, RDW Std Deviation 38.5, RDW Coeff of [place] 12.1, Plt Count 354, MPV 11.8, Immature Gran % (Auto) 0.400, Neut % (Auto) 78.6 H, Lymph % (Auto) 13.7 L, Lynn % (Auto) 6.0, Eos % (Auto) 0.4, Baso % (Auto) 0.9, Absolute Neuts (auto) 7.3, Absolute Lymphs (auto) 1.26, Nucleated RBC % 0 05/18/21 07:00: Ethyl Alcohol 7.0 05/18/21 07:00: Total Bilirubin 0.70, Direct Bilirubin 0.23, AST 119 H, ALT 188 H, Alkaline Phosphatase 103, Total Protein 9.2 H, Albumin 3.7, Globulin 5.5 H 05/18/21 07:30: Urine Opiates Screen NEGATIVE, Urine Methadone Screen NEGATIVE, Ur Barbiturates Screen NEGATIVE, Ur Phencyclidine Scrn NEGATIVE, Ur Amphetamines Screen NEGATIVE, U Methamphetamin-MDMA NEGATIVE, U Benzodiazepines Scrn NEGATIVE, Urine Cocaine Screen NEGATIVE, U Cannabinoids Screen NEGATIVE, Ur Drug Screen Comment Micro: Microbiology 05/18/21 08:17 Nasal Secretion SARS-CoV-2 Antigen (Rapid) - Final ABG Data ABG results: ABG 05/18/21 08:51 Specimen Type JANNIE VBG pH 7.39 VBG pO2 34 VBG HCO3 28 H VBG Total CO2 29 VBG O2 Sat (Calc) 64 VBG Base Excess 3 POC Mix VBG pCO2 Pt Tmp 45.4 Radiology Impression Chest X-Ray 05/18/21 07:13 IMPRESSION: Borderline cardiomegaly. Electronically Signed: Matt Harris MD at 9:00 EST , Service support , Assessment & Plan Assessment/Plan (1) Bleach ingestion: PLAN: Bleach causes moderate to severe gastrointestinal injuries, while the ingestion of strong acids and alkalis may result in severe complications and . Acids cause more severe damage to the stomach but similar damage to the esophagus when compared to alkalis. I recommend that he continue PPI and Carafate therapy. He will need to undergo an endoscopy tomorrow to assess the extent of damage to his esophagus. He is not having more hematemesis since this morning. I suspect this is from direct damage to the esophagus. Hopefully with PPI and Carafate therapy will help him and he only had minimal injury to the esophagus due to the combination of alcohol. Charges/Coding Visit Charges Inpatient E&M: 43368 Init Hosp L3
--- NOTE | 2021-05-18 19:49 | ECHOD_ITS ---
Reason For Study: HTN Procedure This was a 2D Doppler, Color Flow transthoracic echocardiogram. The exam was of adequate technical quality. Exam performed portable in patient room. Left Ventricle Normal LV size. Moderate concentric left ventricular hypertrophy. Mid cavitary false tendon noted. Left ventricular systolic function is normal. The estimated ejection fraction is 60 %. Transmitral doppler flow suggestive of impaired relaxation of left ventricle. No regional wall motion abnormalities noted. Right Ventricle Normal RV size. Normal systolic function. Atria The left atrium is mildly enlarged. Normal right atrium. Bubble contrast study negative for right to left interatrial shunt. Mitral Valve There is no mitral annular calcification. Normal mitral valve. Trivial mitral valve insufficiency. Tricuspid Valve Normal tricuspid valve. Trivial tricuspid valve insufficiency. Right ventricular systolic pressure estimated to be 24 mmHg. Aortic Valve Trisinus/trileaflet aortic valve. Normal aortic valve. Pulmonic Valve The pulmonic valve is not well visualized. Trivial pulmonic valve insufficiency. Great Vessels Normal sized aortic root. Pericardium/Pleural No pericardial effusion. MMode/2D Measurements & Calculations LVIDd: 5.3 cm IVSd: 1.4 cm Ao root diam: 3.3 cm LVIDs: 4.1 cm LVPWd: 1.5 cm RVDd: 3.5 cm FS: 24.0 % LAV(MOD-bp): 65.5 ml LVAd ap4: 36.0 cm2 SV(MOD-sp4): 59.7 ml LAV(MOD-bp) Indexed: 29.7 ml/m2 LVLd ap4: 9.3 cm LAV(MOD-sp2): 63.2 ml EDV(MOD-sp4): 117.0 ml LAV(MOD-sp4): 66.4 ml EDV(sp4-el): 118.2 ml LVAs ap4: 22.2 cm2 LVLs ap4: 7.7 cm ESV(MOD-sp4): 57.2 ml ESV(sp4-el): 54.0 ml EF(MOD-sp4): 51.1 % EF(sp4-el): 54.3 % SV(sp4-el): 64.2 ml LA A4 area: 20.7 cm2 LA dimension(2D): 4.5 cm RA A4 area: 13.4 cm2 Doppler Measurements & Calculations MV E max jovanny: 64.2 cm/sec Lat Peak E' Jovanny: 6.6 cm/sec Med Peak E' Jovanny: 5.1 cm/sec MV A max jovanny: 76.2 cm/sec E/E' lat: 9.7 E/E' med: 12.6 MV E/A: 0.84 Ao V2 max: 142.4 cm/sec LV V1 max: 112.9 cm/sec PA V2 max: 98.1 cm/sec Ao max P.1 mmHg LV V1 max P.1 mmHg Ao V2 mean: 105.9 cm/sec Ao mean P.8 mmHg Ao V2 VTI: 23.9 cm TR max jovanny: 228.6 cm/sec TR max P.9 mmHg ECHO/Echo Complete Interpretation Summary Left ventricular systolic function is normal. The estimated ejection fraction is 60 %. Moderate concentric left ventricular hypertrophy. Mid cavitary false tendon noted. The left atrium is mildly enlarged. Trivial mitral valve insufficiency. Trivial tricuspid valve insufficiency. Trivial pulmonic valve insufficiency. Right ventricular systolic pressure estimated to be 24 mmHg. Transmitral doppler flow suggestive of impaired relaxation of left ventricle Ordering Physician: Veena Anderson Performed By: Elli Carbajal, AP, RVT
[2021-05-18] MEDS: Potassium Chloride 10mEq/100mL 10 MEQ/100 ML IV.SOLN. 100 MEQ IV BOLUS ×3 (21:05→23:11)
[2021-05-18] MEDS: 0.9% Normal Saline 1,000 ML 75 ML IV (21:06)
[2021-05-18] MEDS: Sucralfate 1 GM Tablet PO (21:08)
[2021-05-18] MEDS: Labetalol (Prefilled) 20 MG/4 ML 40 MG IV (21:25)
[2021-05-18 22:11] LABS: Hematocrit 39.4 % (40-54); Hemoglobin 13.3 g/dL (13.0-16.5)
[2021-05-18 22:31] LABS: Acetaminophen (Tylenol) Level < 2.0 ug/mL (10.0-30.0)
[2021-05-19] VITALS (26 sets, daily range): BP systolic 116–169; BP diastolic 69–107; PULSE 97–116; RESP 16–20; TEMP 36.2–36.9; O2SAT 94–100
[2021-05-19] MEDS: Potassium Chloride 10mEq/100mL 10 MEQ/100 ML IV.SOLN. 100 MEQ IV BOLUS (00:23)
[2021-05-19] MEDS: hydrALAZINE 20 MG/ML Vial 10 MG IV ×4 (00:24→17:20)
[2021-05-19 00:28] LABS: Hematocrit 39.7 % (40-54); Hemoglobin 13.4 g/dL (13.0-16.5)
[2021-05-19] MEDS: 0.9% Saline Lock 10 ML Syringe IV ×6 (00:30→17:21)
[2021-05-19] MEDS: Labetalol (Prefilled) 20 MG/4 ML 40 MG IV ×2 (02:55→05:57)
[2021-05-19] MEDS: Sucralfate 1 GM Tablet PO ×4 (05:56→23:11)
--- NOTE | 2021-05-19 06:30 | NURSING ---
reports tightness in chest. states it is different than previous pain. notified cps and requested ekg.
[2021-05-19 06:33] LABS: Absolute Lymphocyte Count 1.22 X10^3/uL (0.83-4.51); Absolute Neutrophil Count 6.8 X10^3/uL (2.0-7.7); Basophil# 0.06 X10^3/uL; Basophil% 0.7 % (0-1); Eosinophil# 0.15 X10^3/uL; Eosinophils% 1.7 % (0-5); Hematocrit 38.1 % (40-54); Hemoglobin 12.8 g/dL (13.0-16.5); Lymphocyte # 1.22 X10^3/ul (0.83-4.51); Lymphocyte % 13.6 % (19-41); Mean Corp Hgb Conc 33.6 g/dL (32-36); Mean Corpuscular Hgb 30.4 pg (27.0-32.0); Mean Corpuscular Volume 90.5 fL (80-94); Mean Platelet Vol. 12.4 fl (6.2-12.0); Monocyte# 0.73 X10^3/uL; Monocyte% 8.1 % (0-10); NRBC Flagged by Analyzer 0 % (0-5); Neutrophil % 75.7 % (47-70); Platelet Count 223 K/mm3 (150-450); RBC Distribution Width CV 12.6 % (11.6-14.6); RBC Distribution Width SD 41.6 fl (35.1-43.9); Red Blood Count 4.21 M/mm3 (4.6-6.2)
--- NOTE | 2021-05-19 06:48 | EKG12_ITS ---
Test Reason : CP Blood Pressure : / mmHG Vent. Rate : 097 BPM Atrial Rate : 097 BPM P-R Int : 124 ms QRS Dur : 102 ms QT Int : 470 ms P-R-T Axes : 044 018 211 degrees QTc Int : 596 ms Normal sinus rhythm Nonspecific ST-T Changes Prolonged QT Abnormal ECG Confirmed by NANY HAYS, NEREYDA ([id number]), design editor JARAD ESTRADA ([id number]) on 05/21/2021 8:10:56 AM Referred By: DR BENITEZ Confirmed By:FRANCK AYON MD
[2021-05-19 06:57] LABS: Mucous, Urine 0 SEEN /hpf (<or=2+); Squamous Epithelial Cells - UA 0 SEEN /hpf (0-5)
[2021-05-19 07:01] LABS: Troponin-I HS 82 pg/mL (3.0-78.0)
[2021-05-19 07:10] LABS: Color, Urine Yellow (Yellow); Glucose, Dipstick 50 mg/dl (Normal); Ketone-Dipstick 5 mg/dl (Negative); Leukocyte Esterase-Dipstick 25 /ul (Negative); Nitrite-Dipstick Positive (Negative); Occult Blood-Urine 50 /ul (Negative); Protein-Dipstick 500 mg/dl (Negative); Urine Bilirubin Dipstick Negative (Negative); Urine Clarity Turbid (Clear); Urine Urobilinogen 1 mg/dl (Normal); Urine pH 6.5 (5.0 - 8.0); White Blood Cells 10-25 SEEN /hpf (0-5)
[2021-05-19 07:11] LABS: Bacteria 4+ /hpf (None Seen); Red Blood Cells-Urine 0-5 SEEN /hpf (0-5)
[2021-05-19 07:12] LABS: Hyaline Cast 10-25 SEEN /lpf (0-5)
[2021-05-19 07:14] LABS: ALB/GLOB Ratio 0.7 RATIO (0.9-2.4); AST(SGOT) 147 U/L (15-37); Alanine Aminotransfer ALT/SGPT 131 U/L (16-61); Albumin, Serum 2.6 g/dL (3.2-5.0); Alkaline Phosphatase 76 U/L (45-117); Anion Gap 7 (5-15); BUN 16 mg/dL (7-18); BUN/Creat Ratio 7.7 RATIO (10-20); Calcium,Total 7.9 mg/dL (8.5-10.1); Chloride 104 mmol/L (98-107); Creatinine, Serum 2.09 mg/dL (0.70-1.30); EST Glomerular Filtration Rate 40 mL/min (>60); Est Glom Filt Rate - Afr Amer 49 mL/min (>60); Estimated Creatinine Clearance 52.62 ml/min; Globulin 3.9 g/dL (2.2-4.2); Glucose 96 mg/dL (74-106); Magnesium 1.3 mg/dL (1.6-2.6); Phosphorus 3.7 mg/dL (2.5-4.9); Protein, Total 6.5 g/dL (6.4-8.2); Sodium Level 138 mmol/L (136-145); Thyroid Stim Hormone (TSH) 1.57 uIU/mL (0.358-3.74)
[2021-05-19 08:09] LABS: Hemoglobin A1c 5.7 % (3.8-5.6)
[2021-05-19 08:47] LABS: Troponin-I HS 81 pg/mL (3.0-78.0)
[2021-05-19] MEDS: Lisinopril 40 MG Tablet PO (09:07)
[2021-05-19] MEDS: LORazepam 2 MG/ML Syringe 1 MG IV ×2 (09:07→16:02)
[2021-05-19] MEDS: amLODIPine 5 MG Tablet PO ×2 (09:07→16:02)
[2021-05-19] MEDS: hydroCHLOROthiazide 25 MG Tablet PO (09:07)
--- NOTE | 2021-05-19 10:17 | CPS ---
pt refusing IS
--- NOTE | 2021-05-19 10:35 | CASEMGMT ---
Physician feels patient will be able to go to [facility] today. ARNOLDO called [facility] and spoke with Alexis. ARNOLDO updated Alexis that patient is getting a scope today and his BP meds have been adjusted. Physician feels he will be ready today. Alexis said that is fine. Patient has been accepted and he asked that SW keep them updated. Lizeth HAQ
[2021-05-19] MEDS: 0.9% Normal Saline 1,000 ML 75 ML IV ×2 (10:58→17:45)
--- NOTE | 2021-05-19 11:15 | EGD_PTH ---
PATIENT: EDU LARA LOC: [facility] U#:[id number] AGE/SX: 26/M ROOM: [facility] RE05/18/[address]: Dr. Jarrett Diego DO : 1995 BED: 1 DIS: 05/19/2021 SPEC #: [id number] RECD: 05/19/21 12:33 STATUS: NANDA REQ #: [id number] AVRIL: 05/19/21 11:[address]: Dave Stratton DEPT: SURGICAL PATHOLOGY RECD BY: Marilyn Marquez ENTERED: 05/19/21 13:19 SP TYPE: EGD BIOPSY OTHR DR: Dr. Veena Andesron, DO Dr. Jarrett Diego, DO No Primary Care Phys Tissues: Esophagus, NOS Procedures: Special Stain Group II Surgery Specimen Level IV Alcian Blue/PAS (control) Comments: @ Ordering doctor for SUIV edited from to @ by RITU at 05/20/21 0944 @ Submitting doctor edited from to @ by RITU at 05/20/21 0944 HEADER OPERATION: EGD ([place]) PRE-OP DIAGNOSIS: Bleach ingestion TISSUE SUBMITTED: Distal esophagus biopsy MICROSCOPIC DIAGNOSIS Distal esophagus, biopsy: Focal minimal acute inflammation. No evidence of goblet cell metaplasia. See comment. AM:john 05/21/2021 COMMENT Alcian blue/PAS stain with matched control supports the above diagnosis. MICROSCOPIC DESCRIPTION Slides are reviewed. GROSS DESCRIPTION Received in fixative is one container labeled with the patient's name and designated distal esophagus biopsy. The specimen consists of multiple irregular fragments of light medrano soft tissue that in aggregate measure 1 x 0.5 x 0.1 cm. The specimen is totally submitted in one cassette. / AM:john 05/20/2021 TC:2 CPT: 89300, 99457
--- NOTE | 2021-05-19 12:09 | OP.CCLET_ITS ---
01/13/2022 No Primary Care Physician Re : Upper GI endoscopy procedure for Michael Ulloa Dear Care Physician This procedure was performed on Wednesday, May 19, 2021. My impressions and recommendations are as follows: Impressions : - LA Grade B reflux esophagitis. Biopsied. - Normal stomach. - Medium-sized hiatal hernia. - Normal second portion of the duodenum. Recommendations : - Discharge patient to home. - Resume regular diet. - Continue present medications. - Await pathology results. - Telephone GI office for pathology results in 3 weeks. My findings are described in the full procedure note, which is enclosed. If I can be of further assistance, please feel free to contact me at . Sincerely, Dave Stratton, 05/19/2021 12:08:16 PM This report has been signed electronically.
--- NOTE | 2021-05-19 12:09 | OP.EGD_ITS ---
Patient Name: Michael Ulloa Procedure Date: 05/19/2021 11:28 AM Date of : 1995 Age: 26 Procedure: Upper GI endoscopy Indications: Endoscopy to assess acute esophageal injury after caustic ingestion Providers: Dave Stratton DO Medicines: See the Anesthesia note for documentation of the administered medications Patient Profile: This is a 26 year old male. Refer to note in patient chart for documentation of history and physical. Patient has symptoms of acute nausea and acute vomiting. Complications: No immediate complications. Procedure: Pre-Anesthesia Assessment: - Prior to the procedure, a History and Physical was performed, and patient medications and allergies were reviewed. The patient is competent. The risks and benefits of the procedure and the sedation options and risks were discussed with the patient. All questions were answered and informed consent was obtained. Patient identification and proposed procedure were verified by the physician in the pre-procedure area. Mental Status Examination: alert and oriented. Airway Examination: normal oropharyngeal airway and neck mobility. Respiratory Examination: clear to auscultation. CV Examination: normal. Prophylactic Antibiotics: The patient does not require prophylactic antibiotics. Prior Anticoagulants: The patient has taken no previous anticoagulant or antiplatelet agents. ASA Grade Assessment: II - A patient with mild systemic disease. After reviewing the risks and benefits, the patient was deemed in satisfactory condition to undergo the procedure. The anesthesia plan was to use moderate sedation / analgesia (conscious sedation). Immediately prior to administration of medications, the patient was re-assessed for adequacy to receive sedatives. The heart rate, respiratory rate, oxygen saturations, blood pressure, adequacy of pulmonary ventilation, and response to care were monitored throughout the procedure. The physical status of the patient was re-assessed after the procedure. After obtaining informed consent, the endoscope was passed under direct vision. Throughout the procedure, the patient's blood pressure, pulse, and oxygen saturations were monitored continuously. The Endoscope was introduced through the mouth, and advanced to the second part of duodenum. The upper GI endoscopy was accomplished without difficulty. The patient tolerated the procedure well. Moderate Sedation: Moderate (conscious) sedation was administered by the endoscopy nurse and supervised by the endoscopist. The following parameters were monitored: oxygen saturation, heart rate, blood pressure, and response to care. Total physician intraservice time was 15 minutes. Scope In: 11:53:29 AM Scope Out: 11:59:06 AM Total Procedure Duration Time 0 hours 5 minutes 37 seconds Findings: LA Grade B (one or more mucosal breaks greater than 5 mm, not extending between the tops of two mucosal folds) esophagitis with no bleeding was found 34 to 35 cm from the incisors. Biopsies were taken with a cold forceps for histology. Verification of patient identification for the specimen was done. Estimated blood loss was minimal. The entire examined stomach was normal. A medium-sized hiatal hernia was present. The second portion of the duodenum was normal. Impression: - LA Grade B reflux esophagitis. Biopsied. - Normal stomach. - Medium-sized hiatal hernia. - Normal second portion of the duodenum. Recommendation: - Discharge patient to home. - Resume regular diet. - Continue present medications. - Await pathology results. - Telephone GI office for pathology results in 3 weeks. Procedure Code(s): --- Professional --- 40807, Esophagogastroduodenoscopy, flexible, transoral; with biopsy, single or multiple 02213, 59, Moderate sedation services provided by the same physician or other qualified health ostomy care nurse performing the diagnostic or therapeutic service that the sedation supports, requiring the presence of an independent trained observer to assist in the monitoring of the patient's level of consciousness and physiological status; initial 15 minutes of intraservice time, patient age 5 years or older CPT copyright 2017 [employer]. All rights reserved. The codes documented in this report are preliminary and upon drop count associate review may be revised to meet current compliance requirements. Dave Stratton DO 05/19/2021 12:08:16 PM This report has been signed electronically. Number of Addenda: 1 Note Initiated On: 05/19/2021 11:28 AM Addendum Number: 1 Addendum Date: 01/13/2022 6:14:06 AM MAC was used instead of moderate sedation for the patient. Dave Stratton DO 01/13/2022 6:14:10 AM This report has been signed electronically.
[2021-05-19 13:10] LABS: Troponin-I HS 68 pg/mL (3.0-78.0)
[2021-05-19] MEDS: cloNIDine HCl 0.2 MG Tablet PO (15:14)
[2021-05-19] MEDS: Metoprolol Tartrate 50 MG Tablet PO ×2 (16:02→23:11)
[2021-05-19] MEDS: cloNIDine HCl 0.1 MG Tablet PO (17:19)
--- NOTE | 2021-05-19 18:20 | PCM.DC ---
Discharge Instructions Diet Discharge Diet: No restrictions Activity Discharge Activity: Return to Normal Activity Follow Up Care Test Results: Test results from this visit will be discussed in further detail at your follow-up appointment, if applicable. Discharge Plan Admission Admit Date/Time: 05/18/21 15:02 Primary Reason for Your Visit: Uncontrolled hypertension, toxic ingestion, suicide attempt Attending Provider: Jarrett Diego Primary Care Provider: Care Physician,No Primary Instructions Additional Instructions / Restrictions: Get a serum potassium level drawn within 48 hours Discharge Orders/Prescriptions Prescriptions: New hydrochlorothiazide 25 mg Tablet 25 mg PO DAILY Qty: 30 RF: 0 lisinopril 40 mg Tablet 40 mg PO DAILY Qty: 30 RF: 0 sucralfate 1 gram Tablet 1 g PO 1HR_ACHS Qty: 120 RF: 0 amlodipine [Norvasc] 10 mg tablet 10 mg PO DAILY Qty: 30 RF: 0 pantoprazole [Protonix] 40 mg tablet,delayed release (DR/EC) 40 mg PO BID Qty: 60 RF: 0 metoprolol tartrate 25 mg tablet 25 mg PO BID Qty: 60 RF: 0 Discontinued sucralfate 1 gram tablet 1 g PO 4X/DAY RF: 0 lisinopril 20 mg tablet 20 mg PO DAILY RF: 0 omeprazole 40 mg Capsule,Delayed Release(Dr/Ec) 40 mg PO DAILY RF: 0 hydrochlorothiazide 25 mg tablet 25 mg PO DAILY RF: 0 Referrals / Follow Up: Care Physician,No Primary [Primary Care Provider] - Within 1 Week Disposition Disposition (needs filled in before D/C Order can be placed): [facility]
--- NOTE | 2021-05-19 18:32 | NURSING ---
Report called for Pt transfer to [facility],
--- NOTE | 2021-05-19 18:33 | PCM.DC.SUM ---
Providers Date of Admission: 05/18/21 Date of Discharge: 05/19/21 Primary Care Physician: Aleena Primary Care Phys Consultations 05/18/21 19:49 Consult: Gastroenterology Routine Consulting Provider: Lluvia Gastroentergarry Reason for Consult: Bleach consumption EMERGENT Consult: No MD Notified: Yes Date Notified: 05/18/21 Time Notified: 15:07 Method of Notification: Provider Initiated Method of Consult:: In-Person Reason For Visit: HYPERTENSION Diagnosis Discharge Diagnosis (1) Bleach ingestion: Status: Acute Code(s): T54.91XA - Toxic effect of unspecified corrosive substance, accidental (unintentional), initial encounter Plan: 1. Suicide attempt #2 ingestion of bleach-purposely #3 essential hypertension-under poor control #4 dehydration #5 hypokalemia #6 reflux esophagitis #7 ingestion of excessive Tylenol dose-intentional Medications at Discharge Home Medications amlodipine [Norvasc] 10 mg PO DAILY #30 tab 05/19/21 hydrochlorothiazide 25 mg PO DAILY #30 tab 05/19/21 lisinopril 40 mg PO DAILY #30 tab 05/19/21 metoprolol tartrate 25 mg PO BID #60 tab 05/19/21 pantoprazole [Protonix] 40 mg PO BID #60 tab 05/19/21 sucralfate 1 g PO 1HR_ACHS #120 tab 05/19/21 Hospital Course Operations None Procedures EGD Summary of Care Provided Minutes Spent on Discharge: 32 Hospital Course: This 18-year-old black male was seen in the emergency room at [facility] with a complaint of purposely ingesting bleach, vodka, and 20 Tylenol's. Patient was upset because he broke up with his girlfriend. Patient's blood pressure was noted to be elevated in the ER, he was given medication in the ER, he was admitted to PCU 123 due to uncontrolled hypertension, he was unable to be transferred to a psych facility because of this. Patient was seen in consultation by gastroenterology who performed an EGD which showed reflux esophagitis. Patient's blood pressure came under control with addition of several blood pressure agents. On 05/19/2021, patient was seen and examined: On examination he appeared in good health and spirits. Vital signs as documented. Skin warm and dry and without overt rashes. Neck without JVD, neck was supple, trachea midline, thyroid was normal. Lungs clear bilaterally, normal air movement was noted. Heart exam notable for regular rhythm, normal sounds and absence of murmurs, rubs or gallops. Abdomen unremarkable and without evidence of organomegaly, masses, or abdominal aortic enlargement. Bowel sounds are present, abdomen is not distended. Extremities nonedematous, no cyanosis was noted, no clubbing was noted. Neuro: Cranial nerves II through XII are grossly intact, no focal motor deficits were noted, sensation to light touch and pinprick intact, motor exam 5/5 throughout. Psych: Patient is alert and oriented x3, he does not appear anxious or depressed, he does not appear agitated. On 05/19/2021, patient was seen and examined and felt to be stable for discharge to a psychiatric facility. Weight / BMI Weight Weight: 106.5 kg Body Mass Index (BMI) 34.7 ABG / Lab / Microbiology Data Result Diagrams: 05/19/21 05:48 05/19/21 05:48 Laboratory: Laboratory Results - last 24 hr 05/18/21 07:30: Urine Color Yellow, Urine Clarity Turbid, Urine pH 6.5, Ur Specific [place] 1.020, Urine Protein 500 H, Urine Glucose (UA) 50 H, Urine Ketones 5 H, Urine Occult Blood 50 H, Urine Nitrite Positive H, Urine Bilirubin Negative, Urine Urobilinogen 1 H, Ur Leukocyte Esterase 25 H, Urine RBC 0-5 SEEN, Urine WBC 10-25 SEEN, Ur Squamous Epith Cells 0 SEEN, Urine Bacteria 4+, Hyaline Casts 10-25 SEEN, Urine Mucus 0 SEEN 05/18/21 21:30: Hgb 13.3, Hct 39.4 L 05/18/21 21:30: Acetaminophen < 2.0 L 05/19/21 00:06: Hgb 13.4, Hct 39.7 L 05/19/21 05:48: WBC 9.0, RBC 4.21 L, Hgb 12.8 L, Hct 38.1 L, MCV 90.5, MCH 30.4, MCHC 33.6, RDW Std Deviation 41.6, RDW Coeff of [place] 12.6, Plt Count 223, MPV 12.4 H, Immature Gran % (Auto) 0.200, Neut % (Auto) 75.7 H, Lymph % (Auto) 13.6 L, [place] % (Auto) 8.1, Eos % (Auto) 1.7, Baso % (Auto) 0.7, Absolute Neuts (auto) 6.8, Absolute Lymphs (auto) 1.22, Nucleated RBC % 0 05/19/21 05:48: Sodium 138, Potassium 3.0 L, Chloride 104, Carbon Dioxide 27.0, Anion Gap 7, BUN 16, Creatinine 2.09 H, Estim Creat Clear Calc 52.62, Est GFR (MDRD) Af Amer 49 L, Est GFR (MDRD) Non-Af 40 L, BUN/Creatinine Ratio 7.7 L, Glucose 96, Calcium 7.9 L, Phosphorus 3.7, Magnesium 1.3 L, Total Bilirubin 1.20 H, AST 147 H, ALT 131 H, Alkaline Phosphatase 76, Total Protein 6.5, Albumin 2.6 L, Globulin 3.9, Albumin/Globulin Ratio 0.7 L, TSH 1.57 05/19/21 05:48: Hemoglobin A1c 5.7 H 05/19/21 05:48: Troponin I High Sens 82 H 05/19/21 08:02: Troponin I High Sens 81 H 05/19/21 12:40: Troponin I High Sens 68 Microbiology: Microbiology 05/18/21 08:17 Nasal Secretion SARS-CoV-2 Antigen (Rapid) - Final Radiography Diagnostic Testing: Radiology Impression Echocardiogram 05/18/21 19:49 Interpretation Summary Left ventricular systolic function is normal. The estimated ejection fraction is 60 %. Moderate concentric left ventricular hypertrophy. Mid cavitary false tendon noted. The left atrium is mildly enlarged. Trivial mitral valve insufficiency. Trivial tricuspid valve insufficiency. Trivial pulmonic valve insufficiency. Right ventricular systolic pressure estimated to be 24 mmHg. Transmitral doppler flow suggestive of impaired relaxation of left ventricle Ordering Physician: Veena Anderson Performed By: Elli Carbajal, RDCS, RVT D/C Instructions Discharge Diet: No restrictions Meaningful Use Info Meaningful Use Diagnoses (Choose all that apply): None applicable Discharge Plan Admission Admit Date/Time: 05/18/21 15:02 Primary Reason for Your Visit: Uncontrolled hypertension, toxic ingestion, suicide attempt Attending Provider: Jarrett Diego Primary Care Provider: Care Physician,No Primary Instructions Additional Instructions / Restrictions: Get a serum potassium level drawn within 48 hours Discharge Orders/Prescriptions Prescriptions: New hydrochlorothiazide 25 mg Tablet 25 mg PO DAILY Qty: 30 RF: 0 lisinopril 40 mg Tablet 40 mg PO DAILY Qty: 30 RF: 0 sucralfate 1 gram Tablet 1 g PO 1HR_ACHS Qty: 120 RF: 0 amlodipine [Norvasc] 10 mg tablet 10 mg PO DAILY Qty: 30 RF: 0 pantoprazole [Protonix] 40 mg tablet,delayed release (DR/EC) 40 mg PO BID Qty: 60 RF: 0 metoprolol tartrate 25 mg tablet 25 mg PO BID Qty: 60 RF: 0 Discontinued sucralfate 1 gram tablet 1 g PO 4X/DAY RF: 0 lisinopril 20 mg tablet 20 mg PO DAILY RF: 0 omeprazole 40 mg Capsule,Delayed Release(Dr/Ec) 40 mg PO DAILY RF: 0 hydrochlorothiazide 25 mg tablet 25 mg PO DAILY RF: 0 Referrals / Follow Up: Care Physician,No Primary [Primary Care Provider] - Within 1 Week Disposition Disposition (needs filled in before D/C Order can be placed): Psychiatric Hospital or Unit
--- NOTE | 2021-05-19 19:49 | NURSING ---
PT EXPRESSED CONCERNS ABOUT PERSONAL BELONGINGS AND VEHICLE REMAINING AT [facility] WHERE HE HAD BEEN RESIDING. ALSO CONCERNED THAT HE WILL BE CHARGED FOR THE ROOM FOR THE DAYS HE HASN'T BEEN PRESENT. PT STATED THAT CASE MANAGEMENT ADVISED HIM THEY WOULD TAKE CARE OF THIS SITUATION EARLIER IN THE DAY. ENC PT TO CONTACT [facility], WHICH HE DID. STAFF AT [facility] INDICATED THEY WOULD DISCUSS W/MANAGEMENT IN AM. PT REPORTED REDUCED ANXIETY AFTER SPEAKING W/[facility] STAFF. OFFERED EMOTIONAL SUPPORT TO PT WHICH HE STATED HE APPRECIATED. WHEN PT WAS DC'D HE LEFT A PHYSICAL NOTE FOR CASE MANAGEMENT ASKING FOR THEIR ASSISTANCE. INFORMATION PASSED ON TO [employer] BUSINESS RISK ANALYST WHO WILL PASS IT ON TO DAY SHIFT CHARGE TO ADDRESS.
--- NOTE | 2021-05-20 16:38 | CASEMGMT ---
ARNOLDO called [facility] and explained situation that patient was there with them and needed assistance with notifying hotel of his situation. They will see what they can do. Lizeth Godinez GRANITE SETTER SEVERINO
== END 2021-05-19 23:55 | DRG 683 ==
LOC: ED 11:57 → PCU 05-19 06:34
PROVIDERS: Family Medicine; Internal Medicine Gastroenterology; Admitting Provider Internal Medicine; Emergency Provider Emergency Medicine; Visit Provider Internal Medicine
PROC: 0DJ08ZZ Inspection of Upper Intestinal Tract, Via Natural or Artificial Opening Endoscopic (ICD-10-PCS; CPT 43235; principal; 2021-05-19 11:10)
DX: I12.9 Hypertensive chronic kidney disease with stage 1 through stage 4 chronic kidney disease, or unspecified chronic kidney disease (principal); K92.0 Hematemesis; N17.9 Acute kidney failure, unspecified; T54.92XA Toxic effect of unspecified corrosive substance, intentional self-harm, initial encounter; T39.1X2A Poisoning by 4-Aminophenol derivatives, intentional self-harm, initial encounter; T51.92XA Toxic effect of unspecified alcohol, intentional self-harm, initial encounter; N18.32 Chronic kidney disease, stage 3b; K21.9 Gastro-esophageal reflux disease without esophagitis; K44.9 Diaphragmatic hernia without obstruction or gangrene; E87.6 Hypokalemia; F17.290 Nicotine dependence, other tobacco product, uncomplicated; E86.0 Dehydration; K58.9 Irritable bowel syndrome, unspecified; R73.9 Hyperglycemia, unspecified; R13.10 Dysphagia, unspecified; K21.00 Gastro-esophageal reflux disease with esophagitis, without bleeding; Y92.9 Unspecified place or not applicable; Z20.822 Contact with and (suspected) exposure to COVID-19
CPT/HCPCS: 36415; 71045; 80048; 80053; 80076; 80307; 80329; 81001; 82077; 82803; 83036; 83735; 84100; 84443; 84484; 85014; 85018; 85025; 87426; 88305; 88313; 93005; 93306; 99285; 99406; J7030; Q9957; A4216; G0480; J2405; J3490

== ENCOUNTER 2021-07-30 06:43 | Inpatient (IN) | payer OTHER, SELFPAY ==
[2021-07-30] VITALS (22 sets, daily range): BP systolic 173–241; BP diastolic 118–164; PULSE 100–114; RESP 11–21; TEMP 36.6–37.2; O2SAT 95–100; BMI 37.1; BMI 36.6
--- NOTE | 2021-07-30 06:56 | EKG12_ITS ---
Test Reason : STROKE Blood Pressure : / mmHG Vent. Rate : 105 BPM Atrial Rate : 105 BPM P-R Int : 154 ms QRS Dur : 102 ms QT Int : 388 ms P-R-T Axes : 033 002 049 degrees QTc Int : 512 ms Sinus tachycardia Left ventricular hypertrophy Abnormal ECG Confirmed by SHABBIR HAYS, SYL ([id number]), scientific publications editor JARAD ESTRADA ([id number]) on 08/03/2021 10:58:14 AM Referred By: TL Confirmed By:SYL SHEA MD
--- NOTE | 2021-07-30 06:56 | RAD_ITS ---
STUDY: X-RAY CHEST REASON FOR EXAM: Male, 26 years old. Neuro deficit, acute, stroke suspected TECHNIQUE: Single AP portable view of the chest. COMPARISON: Comparison is made with prior study dated 05/18/2021. FINDINGS: EKG electrodes are seen. The lungs are clear and expanded. There is no demonstrated pleural abnormality. Normal size heart. Normal mediastinum and bharath. Normal visualized pulmonary arteries. Normal visualized aortic arch and descending thoracic aorta. Normal visualized thoracic spine. Normal visualized ribs, clavicles, and shoulders. There is no demonstrated abnormality of the visualized soft tissue structures of the upper abdomen. RAD/Chest 1 View IMPRESSION: Normal x-ray examination of the chest. Electronically Signed: Matt Harris MD at 8:09 EDT ,
--- NOTE | 2021-07-30 06:56 | CT_ITS ---
STUDY: CT BRAIN WITHOUT CONTRAST REASON FOR EXAM: Male, 26 years old. Acute neurologic deficit. TECHNIQUE: Transaxial CT imaging of the brain was performed without administration of intravenous contrast material. Individualized dose optimization techniques were used for this CT. COMPARISON: No relevant priors. FINDINGS: No evidence of intracranial hemorrhage, mass, infarct or hydrocephalus. No skull fracture. Visualized paranasal sinuses and mastoid air cells patent. Visualized extracranial soft tissues unremarkable. ASPECTS [address]/STROKE Brain/Head without Cont IMPRESSION: Negative CT brain without contrast. N.B. : The above Results were Read Back by Jose Eduardo Crooks MD to MD Justin, and understanding confirmed on 07/30/2021 07:23:07 (ET). Electronically Signed: Jose Eduardo Crooks MD at 7:13 EDT Reading Location ID and State: [facility] / [place] Tel , Service support ,
--- NOTE | 2021-07-30 06:57 | CT_ITS ---
We are attempting to reach an attending provider to discuss findings. An addendum with communication details will be sent when the communication is complete. STUDY: CTA HEAD AND NECK WITH CONTRAST REASON FOR EXAM: Male, 26 years old. Stroke symptoms. Chest pain. Right sided decrease in vision. RADIATION DOSAGE (If Supplied By Facility): CTDIvol = ( 20.48 ) mGy, DLP = ( 798.70 ) mGycm TECHNIQUE: CT angiography was performed with a multi-detector CT scanner. Data acquisition was obtained from the skull base through the vertex following intravenous administration of IV 75mL [id number]-[id number]. with MIP reconstructed images. Individualized dose optimization techniques were used for this CT. COMPARISON: No relevant priors. FINDINGS: Cervical ICA narrowing is measured per NASCET criteria (% ICA stenosis = (1 - [narrowest ICA diameter/diameter normal distal cervical ICA]) x 100. CTA NECK: Aortic arch: Left-sided aortic arch with no significant narrowing of the great vessel origins or subclavian arteries. Right carotids: Right CCA: No significant narrowing or dissection. Right ICA: No significant narrowing or dissection. Courses medial and retropharyngeal at the C3 level. Right ECA: No significant narrowing or dissection. Left carotids Left CCA:No significant narrowing or dissection. Left ICA: No significant narrowing or dissection. Left ECA: No significant narrowing or dissection. Vertebrals: Codominant vertebral arteries with no significant narrowing and no dissection. CTA HEAD: Intracranial carotids:Normal course and caliber. MCAs:No aneurysm or significant stenosis. ACAs:No aneurysm or significant stenosis. Left A1 segment dominant, right hypoplastic. Basilar:Normal caliber. No aneurysm. horticulture supervisor:No aneurysm or significant narrowing. The right is fed by dominant P1 segment. On the left, a patent posterior communicating artery has similar caliber to the P1 segment Patent bilateral posterior and anterior inferior and superior cerebellar arteries are identified. No evidence of AVM or aneurysm. No intracranial DVT. Nonvascular structures: No acute findings. CT/STROKE CTA Head AND Neck W/Con IMPRESSION: No significant arterial narrowing in the head or neck. Electronically Signed: Jose Eduardo Crooks MD at 7:42 EDT ,
--- NOTE | 2021-07-30 06:58 | ED.VIS.STROK ---
HPI History of Present Illness Chief Complaint: Neuro S/Sx Informant: patient Narrative Narrative: Patient presenting here with multiple complaints. History of bipolar mood disorder and hypertension. He states for blood pressure he is only on prazosin. Reports past 4 days noted some burning in his abdomen he reported thought it was just his indigestion for which he takes omeprazole and Carafate. States there was burning sensation into his chest since yesterday. Denies any sharp pains. Noted on arrival elevated blood pressure systolic 240s. He states last week his blood pressure was 140. He states the headache for the past 2 days without trauma. He states he woke up 430 this morning with only 30% vision to his right eye. He does wear contacts and has it on. States there is some weakness in his legs also he came by private vehicle. Denies anticoagulation medications, denies any stroke history. Denies any sharp tearing pain in his chest. 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 For his bipolar history with mood disorder he is on Abilify, Klonopin, Keppra. He denies any recreational drug use history. Tobacco history. Prior similar symptoms: No PFSH PFSH Medical History JULIANNA (acute kidney injury) Bipolar 1 disorder Bleach ingestion GERD (gastroesophageal reflux disease) Hypertension Irritable bowel syndrome (IBS) Overdose Pre-employment examination PUD (peptic ulcer disease) Stage 3b chronic kidney disease (CKD) Suicide gesture Tobacco abuse Home Medications sucralfate 1 g PO 1HR_ACHS #120 tab 05/19/21 [Rx Last Taken Unknown] aripiprazole [Abilify] 15 mg PO BID 07/30/21 [History Last Taken Unknown] clonazepam [Klonopin] 1 mg PO DAILY 07/30/21 [History Last Taken Unknown] clonazepam [Klonopin] 3 mg PO QHS 07/30/21 [History Last Taken Unknown] levetiracetam [Keppra] 250 mg PO DAILY 07/30/21 [History Last Taken Unknown] levetiracetam [Keppra] 500 mg PO QHS 07/30/21 [History Last Taken Unknown] omeprazole 40 mg PO DAILY 07/30/21 [History Last Taken Unknown] prazosin mg PO QHS 07/30/21 [History Last Taken Unknown] trazodone 100 mg PO DAILY 07/30/21 [History Last Taken Unknown] Allergy/AdvReac Type Severity Reaction Status Date / Time No Known Allergies Allergy Verified 07/30/21 06:49 Family History Other Diabetes Hypertension Social History household members: spouse Smoking Status: Current every day smoker tobacco type: e-cigarettes alcohol intake: current alcohol intake frequency: 0-2 drinks per day substance use type: does not use ROS ROS ED Constitutional Constitutional ED: Denies chills, fever(s) or sweats Eyes Eyes: Reports change in vision ENT ENT ED: Denies dysphagia or sore throat Cardiovascular Cardiovascular: Reports chest pain; Denies leg edema, palpitations or racing heartbeat Respiratory/Chest Respiratory/Chest: Denies cough, dyspnea or dyspnea on exertion Gastrointestinal Gastrointestinal: Reports abdominal pain; Denies diarrhea, nausea or vomiting Genitourinary Genitourinary ED: Denies dysuria, hematuria or urinary frequency Musculoskeletal Musculoskeletal: Denies back pain, extremity pain or neck pain Integumentary Denies rash or wounds Neurologic Neurologic: Reports headache(s); Denies paresthesias or weakness EXAM Physical Exam Const Vital Signs: 07/30/21 06:45 07/30/21 07:11 07/30/21 07:21 Temperature 98.5 F 98.5 F Temperature Source Temporal Temporal Pulse Rate 114 H 100 Respiratory Rate 16 20 H Blood Pressure 241/164 H 241/164 H Blood Pressure Mean 189 189 Pulse Ox 98 96 Oxygen Delivery Method Room Air Room Air Room Air 07/30/21 07:25 07/30/21 07:30 07/30/21 07:33 Temperature Temperature Source Pulse Rate 104 H 105 H Respiratory Rate 16 16 Blood Pressure 193/120 H 177/135 H 177/135 H Blood Pressure Mean 144 149 149 Pulse Ox 97 95 Oxygen Delivery Method Room Air Room Air 07/30/21 08:00 Temperature Temperature Source Pulse Rate 106 H Respiratory Rate 11 L Blood Pressure 174/159 H Blood Pressure Mean 164 Pulse Ox 97 Oxygen Delivery Method Room Air Positive well nourished and well developed General Appearance ED: well developed and NAD HEENT Reports moist mucous membranes normocephalic and atraumatic Eyes PERRL, EOMs intact bilaterally and conjunctivae normal Eyes Narrative: Patient right hemianopsia to the right eye, there is blurriness to the quadrants medially on the right eye upper and lower. General Eye ED: Yes normal appearance of both eyes Neck no lymphadenopathy and supple General: Negative for tenderness Chest Wall Chest: Negative for tenderness Resp normal respiratory effort and normal air movement Effort and Inspection: symmetric chest movement; Negative for respiratory distress Cardio regular rate, regular rhythm and no murmurs Rate: tachycardic Peripheral Pulses: pulses 2+ throughout GI normal to inspection, nondistended, normoactive bowel sounds and non-tender Palpation: Negative for guarding or rebound tenderness present Back/Spine no CVA tenderness and no thoracic nor lumbar tenderness Extremity normal to inspection General Extremety ED: Negative for edema or tenderness General Extremity: Negative for edema Neuro oriented x3, CN's II-XII intact bilaterally and no sensory deficits noted Neuro Narrative: Patient NIH is a 3 for visual field loss, there is drifting to bilateral lower extremities. There is some weakness to the hip flexors bilaterally left greater than right. Sensorium / Orientation: awake and alert Skin no rashes or lesions noted and no wounds STROKE Vital Signs/Narrative: Vital Signs Temp Pulse Resp BP Pulse Ox 07/30/21 08:00 106 H 11 L 174/159 H 97 07/30/21 07:33 177/135 H 07/30/21 07:30 105 H 16 177/135 H 95 07/30/21 07:25 104 H 16 193/120 H 97 07/30/21 07:11 98.5 F 100 20 H 241/164 H 96 07/30/21 06:45 98.5 F 114 H 16 241/164 H 98 Inital Vital Signs reviewed: Yes MDM MDM MDM Narrative Medical decision making narrative: Patient multiple ongoing complaints however presentation with acute visual loss of the right eye awaken at 4:30 AM. Blood pressure systolic 240 on arrival. Denies any tearing chest pains. Stroke protocol was initiated due to vision loss NIH of 3, blood pressure will need to be lowered. 0725: Patient seen by telemetry stroke neurologist Dr. Ramos, I was present during the evaluation. He evaluated the patient, does not recommend TPA at this time due to diffuse blurry vision of the right eye. He states he sees a small left hemispheric lesion. He recommended evaluating the large vessels to rule out LVO. He states if negative will need MRI studies with and without contrast of the brain. He recommended possible infectious rule out. He recommended adding a tox screen. Blood pressure after labetalol trending down at this time. With patient's nausea and vomiting report abdominal discomfort abdominal labs are also still pending. I did evaluation the patient's right eye with an ophthalmoscope, vessels were visualized, there was no hemorrhage of vessels in the posterior eye. 0739: Discussion with radiologist CT angiograms with no large vessel occlusions. Patient with current concerns for hypertensive emergency. Labs are still pending for his abdominal labs and his troponin with his chest pain. Reporting burning sensations. EKG is sinus rhythm rate of 105, there was no ST or T wave changes. 0815: Abdominal labs slight elevation of lipase. Potassium 2.8 sodium 130. Potassium orally replaced. Creatinine 1.5, this is lower than his previous creatinine. Stage III chronic kidney disease. Protonix IV was given. I spoke with hospitalist Dr. Fagan, discussed patient history and presentation. Request stool guaiac be obtained due to his history. As reviewing his records apparently drank bleach in May having esophagitis. Noted he was started on the blood pressure medicines at that time. She also request I speak with Dr. Stratton for more urgent endoscopy due to likely needing anticoagulation therapy with concerning stroke presentation. He is on page. I discussed with patient further with his medications, he states when he was transferred to [facility] he was discharged with prazosin and discontinued on the other blood pressure medicines. He states he was only given prazosin. He did not have a PCP stating since then he called back to facility who refilled his medications. Hemoccult was obtained and sent to lab pending at this time. 0840: Discussed with Dr. Stratton updated on his medical concerns of possible GI bleed and potential need for anticoagulation medications. He is aware and will see the patient with hospital team. Patient will be admitted to PCU. Lab Data Attestation: I reviewed the patient's lab results. Labs: Laboratory Results - last 24 hr 07/30/21 07/30/21 07/30/21 07:13 07:20 07:20 WBC 5.6 RBC 4.46 L Hgb 14.6 Hct 40.6 MCV 91.0 MCH 32.7 H MCHC 36.0 RDW Std Deviation 42.0 RDW Coeff of [place] 12.6 Plt Count 122 L MPV 11.7 Immature Gran % (Auto) 0.700 Neut % (Auto) 55.8 Lymph % (Auto) 11.4 L [place] % (Auto) 23.8 H Eos % (Auto) 7.2 H Baso % (Auto) 1.1 H Absolute Neuts (auto) 3.1 Absolute Lymphs (auto) 0.64 L Nucleated RBC % 0 PT 13.0 INR 1.0 APTT 38.1 H Sodium Potassium Chloride Carbon Dioxide Anion Gap BUN Creatinine Estim Creat Clear Calc Est GFR (MDRD) Af Amer Est GFR (MDRD) Non-Af BUN/Creatinine Ratio Glucose Calcium Total Bilirubin Direct Bilirubin AST ALT Alkaline Phosphatase Troponin I High Sens Total Protein Albumin Globulin Lipase Urine Opiates Screen Urine Methadone Screen Ur Barbiturates Screen Ur Phencyclidine Scrn Ur Amphetamines Screen MDMA (Ecstasy) Screen U Benzodiazepines Scrn Urine Cocaine Screen U Cannabinoids Screen Ur Drug Screen Comment POC Glucose 87 07/30/21 07/30/21 07:20 07:45 WBC RBC Hgb Hct MCV MCH MCHC RDW Std Deviation RDW Coeff of [place] Plt Count MPV Immature Gran % (Auto) Neut % (Auto) Lymph % (Auto) [place] % (Auto) Eos % (Auto) Baso % (Auto) Absolute Neuts (auto) Absolute Lymphs (auto) Nucleated RBC % PT INR APTT Sodium 130 L Potassium 2.8 L Chloride 93 L Carbon Dioxide 27.0 Anion Gap 10 BUN 15 Creatinine 1.56 H Estim Creat Clear Calc 68.21 Est GFR (MDRD) Af Amer 68 Est GFR (MDRD) Non-Af 56 L BUN/Creatinine Ratio 9.6 L Glucose 96 Calcium 9.2 Total Bilirubin 0.70 Direct Bilirubin 0.23 AST 86 H ALT 82 H Alkaline Phosphatase 74 Troponin I High Sens 67 Total Protein 7.7 Albumin 2.9 L Globulin 4.8 H Lipase 425 H Urine Opiates Screen NEGATIVE Urine Methadone Screen NEGATIVE Ur Barbiturates Screen NEGATIVE Ur Phencyclidine Scrn NEGATIVE Ur Amphetamines Screen NEGATIVE MDMA (Ecstasy) Screen NEGATIVE U Benzodiazepines Scrn NEGATIVE Urine Cocaine Screen NEGATIVE U Cannabinoids Screen NEGATIVE Ur Drug Screen Comment POC Glucose Radiography Diagnostic Testing: Clinical Impression(s) from Imaging Studies Brain CT 07/30/21 06:56 IMPRESSION: Negative CT brain without contrast. N.B. : The above Results were Read Back by Jose Eduardo Crooks MD to MD Justin, and understanding confirmed on 07/30/2021 07:23:07 (ET). Electronically Signed: Jose Eduardo Crooks MD at 7:13 EDT Reading Location ID and State: [address] [place] [address] Tel , Service support , ADDENDUM: 07/30/21 0720 IMPRESSION: Negative CT brain without contrast. N.B. : The above Results were Read Back by Jose Eduardo Crooks MD to Skip richards;[phone], and understanding confirmed on 07/30/2021 07:13:48 (ET). Electronically Signed: Jose Eduardo Crooks MD at 7:13 EDT Reading Location ID and State: [address] [place] [address] Tel , Service support , ADDENDUM: 07/30/21 0730 IMPRESSION: Negative CT brain without contrast. N.B. : The above Results were Read Back by Jose Eduardo Crooks MD to MD Justin, and understanding confirmed on 07/30/2021 07:23:07 (ET). Electronically Signed: Jose Eduardo Crooks MD at 7:13 EDT Reading Location ID and State: [address] [place] [address] Tel , Service support , ADDENDUM: 07/30/21 0750 Chest X-Ray 07/30/21 06:56 IMPRESSION: Normal x-ray examination of the chest. Electronically Signed: Matt Harris MD at 8:09 EDT , Head/Neck CTA 07/30/21 06:57 IMPRESSION: No significant arterial narrowing in the head or neck. Electronically Signed: Jose Eduardo Crooks MD at 7:42 EDT Reading Location ID and State: [facility] Tel , Service support , ADDENDUM: 07/30/21 0752 IMPRESSION: No significant arterial narrowing in the head or neck. N.B. : The above Results were Read Back by Jose Eduardo Crooks MD to MD Susie, and understanding confirmed on 07/30/2021 07:45:07 (ET). Electronically Signed: Jose Eduardo Crooks MD at 7:42 EDT Reading Location ID and State: [facility] / [place] Tel , Service support , EKG Initial EKG: Attestation: I personally reviewed and interpreted this EKG as follows: Comments: Sinus rate of 105, no ST or T wave changes. Stroke Documentation Questions Stroke Team Activated: Yes Reviewed Inclusion/Exclusion criteria: Yes Was Patient considered for Endovascular Intervention?: No-CTA negative, determined not to be an endovascular candidate IV Alteplase (t-PA) Administered: No No contraindications for IV Alteplase (t-PA) administration.: No Alteplase (t-PA) risks, benefits, alternative discussed: Yes Not given: Patient refusal: No (Determined not to be given per stroke neurologist Dr. Ramos) Critical Care Time Critical Care Time: Yes Critical care time (excluding procedures): 30-74 minutes, Discussing w/Patient &/or Family/[employer], Discussing w/Consultants, Arranging Admission or Transfer, Performing Direct Patient Care at Bedside and - (40 minutes) Discharge Plan Dx/Rx/DC Orders Clinical Impression: Hypertensive emergency, Sudden visual loss of right eye, Headache, Chest pain, Nausea & vomiting, Acute hypokalemia, Acute hyponatremia Disposition Disposition: Acute Care [facility]
[2021-07-30 07:16] LABS: Bedside Glucose 87 mg/dL (74-106)
[2021-07-30] MEDS: Labetalol (Prefilled) 20 MG/4 ML IV (07:19)
--- NOTE | 2021-07-30 07:22 | ED.RN ---
Addendum entered by Katharina Nguyen 07/30/21 07:26: BLOOD SUGAR OBTAINED AT 0713. Original Note: 0653 STROKE LERT CALLED. [address] SCAN. 0656 [facility] NOTIFIED OF PT'S CONDITION. [address] SCAN.BLOOD SUGAR TAKEN 0718 DR COLEY AT THE BEDSIDE,[facility] NOTIFIED THAT PT BACK IN THE ROOM.DR WILKINSON VIA TELEHEALTH ASSESSING THE PT.
[2021-07-30 07:34] LABS: Absolute Lymphocyte Count 0.64 X10^3/uL (0.83-4.51); Absolute Neutrophil Count 3.1 X10^3/uL (2.0-7.7); Basophil# 0.06 X10^3/uL; Basophil% 1.1 % (0-1); Eosinophils% 7.2 % (0-5); Hematocrit 40.6 % (40-54); Hemoglobin 14.6 g/dL (13.0-16.5); Lymphocyte # 0.64 X10^3/ul (0.83-4.51); Lymphocyte % 11.4 % (19-41); Mean Corpuscular Hgb 32.7 pg (27.0-32.0); Mean Platelet Vol. 11.7 fl (6.2-12.0); Monocyte# 1.33 X10^3/uL; Monocyte% 23.8 % (0-10); NRBC Flagged by Analyzer 0 % (0-5); Neutrophil # 3.12 X10^3/uL (2.7-7.7); Neutrophil % 55.8 % (47-70); Platelet Count 122 K/mm3 (150-450); RBC Distribution Width CV 12.6 % (11.6-14.6); Red Blood Count 4.46 M/mm3 (4.6-6.2); White Blood Count 5.6 K/mm3 (4.4-11.0)
[2021-07-30 07:47] LABS: Partial Thromboplast Time 38.1 Seconds (24.1-36.2)
[2021-07-30 07:52] LABS: AST(SGOT) 86 U/L (15-37); Alanine Aminotransfer ALT/SGPT 82 U/L (16-61); Albumin, Serum 2.9 g/dL (3.2-5.0); Alkaline Phosphatase 74 U/L (45-117); Anion Gap 10 (5-15); BUN 15 mg/dL (7-18); BUN/Creat Ratio 9.6 RATIO (10-20); Bilirubin, Direct 0.23 mg/dL (0.00-0.30); Calcium,Total 9.2 mg/dL (8.5-10.1); Chloride 93 mmol/L (98-107); Creatinine, Serum 1.56 mg/dL (0.70-1.30); EST Glomerular Filtration Rate 56 mL/min (>60); Est Glom Filt Rate - Afr Amer 68 mL/min (>60); Estimated Creatinine Clearance 68.21 ml/min; Globulin 4.8 g/dL (2.2-4.2); Glucose 96 mg/dL (74-106); Lipase 425 U/L (73-393); Potassium 2.8 mmol/L (3.5-5.1); Protein, Total 7.7 g/dL (6.4-8.2); Sodium Level 130 mmol/L (136-145); Troponin-I HS 67 pg/mL (3.0-78.0)
[2021-07-30] MEDS: Potassium Chloride Oral Tablet 20 MEQ 60 MEQ PO (08:06)
[2021-07-30 08:09] LABS: Amphetamine Urine VISTA NEGATIVE (<1000 ng/mL); Barbiturate Urine VISTA NEGATIVE (< 200 ng/mL); Benzodiazepine Urine VISTA NEGATIVE (< 200 ng/mL); Cocaine Urine VISTA NEGATIVE (< 300 ng/mL); Ecstacy Urine VISTA NEGATIVE (< 500 ng/mL); Methadone Urine VISTA NEGATIVE (< 300 ng/mL); PCP Urine VISTA NEGATIVE (< 25 ng/mL); THC Urine VISTA NEGATIVE (< 50 ng/mL); Vista UDS pH Range 6
--- NOTE | 2021-07-30 08:12 | PCM.HP.STD ---
HPI - General General Date of Admission: 07/30/21 Date of Service: 07/30/21 Chief Complaint: N/V/Black stools, R eye vision changes and L sided paresthesias. HPI Narrative The patient is a 26 y/o M w/ PMHx: Anxiety and Depression/Bipolar disorder/recent Suicide attempt 05/2021 with ingestion of bleach/vodka with admission at that time with discharge to Psychiatric facility followiing, HTN, PUD, CKD stage IIIb, Tobacco use, IBS, Obesity who presents to the [facility] ED on 07/30/21 with history of onset over the last 3 days dark black stools with associated nausea and emesis and epigastric discomfort as well as a burning sensation in that region and into the lower chest with normalization of his stools on day of ED presentation but ongoing discomfort as well as onset upon awakening on day of presentation right eye altered blurred vision with significant visual deficits in the right eye except the right lower outer quadrant prompting evaluation in addition to mild subjective left-sided paresthesias although this was improved upon his evaluation in the ED and he only noted eye deficits. Patient also reported that he is only on prazosin for blood pressure which he was started on when he was released from the psychiatric facility and from review of records and discussions suspect that unfortunately the regimen he had been discharged on in May was not continued upon his transition to psych facility. Work-up in the ED included T 98.5, heart rate 100, BP 241/164 initially, respiratory rate 20, 96% on room air, CBC with WC 5.6, hemoglobin 15.3, platelet 122 with lymphopenia, unremarkable coags, CMP with sodium 130, potassium 2.8, chloride 93, BUN/creatinine 15/1.56, AST/LT 86/82, lipase 425, ET of the brain with no acute intracranial findings however there was an eventual addendum with reported chronic appearing hypodensity in the right greater than left periantral periventricular white matter possibly secondary to remote possible insult, chest x-ray with no acute cardiopulmonary findings, CTA of the head and neck with no significant arterial narrowing in the head of the neck, EKG with sinus rhythm with no acute evidence of ischemia. Telemetry stroke consultation requested per ED physician with recommendation for admission and continued stroke evaluation with MRI of the brain with and without in case demyelinating process. ED physician also did discuss case with gastroenterology given concern for GI bleed in the setting of a potential stroke with limitation on antiplatelet therapy as a result. [facility] Medical History (Updated 07/30/21 @ 18:[address] Soumya Fagan MD) Bipolar 1 disorder Bleach ingestion GERD (gastroesophageal reflux disease) Hypertension Irritable bowel syndrome (IBS) Overdose PUD (peptic ulcer disease) Stage 3b chronic kidney disease (CKD) Suicide gesture Tobacco abuse Home Medications sucralfate 1 g PO 1HR_ACHS #120 tab 05/19/21 [Rx Last Taken Unknown] aripiprazole [Abilify] 15 mg PO BID 07/30/21 [History Last Taken 07/30/21] clonazepam [Klonopin] 1 mg PO DAILY 07/30/21 [History Last Taken 07/29/21] clonazepam [Klonopin] 3 mg PO QHS 07/30/21 [History Last Taken 07/29/21] levetiracetam [Keppra] 250 mg PO DAILY 07/30/21 [History Last Taken 07/30/21] levetiracetam [Keppra] 500 mg PO QHS 07/30/21 [History Last Taken 07/29/21] omeprazole 40 mg PO DAILY 07/30/21 [History Last Taken 07/30/21] prazosin 5 mg PO QHS 07/30/21 [History Last Taken 07/29/21] trazodone 100 mg PO QHS 07/30/21 [History Last Taken 07/29/21] Allergy/AdvReac Type Severity Reaction Status Date / Time No Known Allergies Allergy Verified 07/30/21 06:49 Family History (Updated 07/30/21 @ 18:[address] Soumya Fagan MD) Mother Diabetes Hypertension Valvular heart disease HLD (hyperlipidemia) Bipolar disorder Father Hypertension CAD (coronary artery disease) HLD (hyperlipidemia) Bipolar disorder Surgical History (Updated 07/30/21 @ 18:[address] Soumya Fagan MD) H/O left knee surgery Surgical History no surgical history Social History (Updated 07/30/21 @ 18:[address] Soumya Fagan MD) household members: none Smoking Status: Current every day smoker tobacco type: e-cigarettes Smokeless tobacco user: other alcohol intake: current alcohol intake frequency: a few times a week substance use type: does not use ROS ROS Narrative Admission Review of Systems: CONSTITUTIONAL: No weight loss, fever, chills, + weakness or fatigue. HEENT: + Right eye vision changes. Eyes: No double vision or yellow sclerae. Ears, Nose, Throat: No hearing loss, sneezing, congestion, runny nose or sore throat. SKIN: No rash or itching, lesions, wounds. CARDIOVASCULAR: No chest pain, chest pressure or chest discomfort, palpitations, edema, orthopnea, syncopal events. RESPIRATORY: No shortness of breath, cough or sputum, wheezing, hemoptysis. GASTROINTESTINAL: + Anorexia, nausea, vomiting, black stools, epigastric pain, No constipation, BRBPR. GENITOURINARY: No dysuria, frequency, urgency or retention. NEUROLOGICAL: + Right eye vision changes, left-sided paresthesias, no headache, dizziness, syncope, paralysis, ataxia, focal weakness, change in bowel or bladder control, seizure. MUSCULOSKELETAL: No muscle, back pain, joint pain or stiffness. HEMATOLOGIC: + anemia, bleeding or bruising. LYMPHATICS: No enlarged nodes. No history of splenectomy. PSYCHIATRIC: + history of depression or anxiety. ENDOCRINOLOGIC: No reports of sweating, cold or heat intolerance. No polyuria or polydipsia. ALLERGIES: No history of asthma, hives, eczema or rhinitis. Vital Signs Vital Signs Vital Signs: 07/30/21 06:45 07/30/21 07:11 07/30/21 07:21 Temperature 98.5 F 98.5 F Temperature Source Temporal Temporal Pulse Rate 114 H 100 Respiratory Rate 16 20 H Blood Pressure 241/164 H 241/164 H Blood Pressure Mean 189 189 Pulse Ox 98 96 Oxygen Delivery Method Room Air Room Air Room Air 07/30/21 07:25 07/30/21 07:30 07/30/21 07:33 Temperature Temperature Source Pulse Rate 104 H 105 H Respiratory Rate 16 16 Blood Pressure 193/120 H 177/135 H 177/135 H Blood Pressure Mean 144 149 149 Pulse Ox 97 95 Oxygen Delivery Method Room Air Room Air 07/30/21 08:00 Temperature Temperature Source Pulse Rate 106 H Respiratory Rate 11 L Blood Pressure 174/159 H Blood Pressure Mean 164 Pulse Ox 97 Oxygen Delivery Method Room Air Weight Weight: 244 lb 4.355 oz Body Mass Index (BMI) 37.1 Physical Exam Narrative Physical Examination: General: Awake, alert, oriented x 3 and cooperative, seated upright in the ED bed in no apparent distress. Skin: Normal color, normal turgor, no icterus, no cyanosis. HEENT: AT/NC, EOMI, PERRLA, right field deficit except to the lower right outer quadrant with reported blurring, MMM, no carotid bruits or JVD noted. Lungs: Distant, diminished, appropriate effort, no rales, ronchi or wheezing. Heart: Mildly tachycardic with regular rhythm; no gallop, rub audible. Abdomen: Soft, obese, some discomfort to the epigastric region with palpation, ND, distant mildly hyperactive BS, no obvious evidence of HSM. Extremities: No cyanosis, clubbing, or edema. Neurological: Patient awake, alert, oriented as noted, cognitive function intact; pupils equally reactive to light and accommodation, cranial nerves grossly normal except noted evidence of right sided field deficits with only intact field right lower outer quadrant, moving all 4 extremities, no focal deficits, strength preserved, equivocal Babinski, appropriate [id number], some difficulty with [id number] to bilateral upper extremities only when crossing the field deficits otherwise intact, currently denies any continuation of the subjective paresthesias to the left side. Psychiatric: Affect appears normal, no acute evidence of depressive or anxiety feelings. Results Lab / Micro Data Result Diagrams: 07/30/21 10:53 07/30/21 07:20 Labs: Laboratory Results - last 24 hr 07/30/21 07:13: POC Glucose 87 07/30/21 07:20: WBC 5.6, RBC 4.46 L, Hgb 14.6, Hct 40.6, MCV 91.0, MCH 32.7 H, MCHC 36.0, RDW Std Deviation 42.0, RDW Coeff of [place] 12.6, Plt Count 122 L, MPV 11.7, Immature Gran % (Auto) 0.700, Neut % (Auto) 55.8, Lymph % (Auto) 11.4 L, Bracken % (Auto) 23.8 H, Eos % (Auto) 7.2 H, Baso % (Auto) 1.1 H, Absolute Neuts (auto) 3.1, Absolute Lymphs (auto) 0.64 L, Nucleated RBC % 0 07/30/21 07:20: PT 13.0, INR 1.0, APTT 38.1 H 07/30/21 07:20: Sodium 130 L, Potassium 2.8 L, Chloride 93 L, Carbon Dioxide 27.0, Anion Gap 10, BUN 15, Creatinine 1.56 H, Estim Creat Clear Calc 68.21, Est GFR (MDRD) Af Amer 68, Est GFR (MDRD) Non-Af 56 L, BUN/Creatinine Ratio 9.6 L, Glucose 96, Calcium 9.2, Total Bilirubin 0.70, Direct Bilirubin 0.23, AST 86 H, ALT 82 H, Alkaline Phosphatase 74, Troponin I High Sens 67, Total Protein 7.7, Albumin 2.9 L, Globulin 4.8 H, Lipase 425 H 07/30/21 07:45: Urine Opiates Screen NEGATIVE, Urine Methadone Screen NEGATIVE, Ur Barbiturates Screen NEGATIVE, Ur Phencyclidine Scrn NEGATIVE, Ur Amphetamines Screen NEGATIVE, MDMA (Ecstasy) Screen NEGATIVE, U Benzodiazepines Scrn NEGATIVE, Urine Cocaine Screen NEGATIVE, U Cannabinoids Screen NEGATIVE, Ur Drug Screen Comment Radiology Impression Brain CT 07/30/21 06:56 IMPRESSION: Negative CT brain without contrast. N.B. : The above Results were Read Back by Jose Eduardo Crooks MD to MD Justin, and understanding confirmed on 07/30/2021 07:23:07 (ET). Electronically Signed: Jose Eduardo Crooks MD at 7:13 EDT Reading Location ID and State: [address] [place] [address] Tel , Service support , ADDENDUM: 07/30/21 0720 IMPRESSION: Negative CT brain without contrast. N.B. : The above Results were Read Back by Jose Eduardo Croosk MD to Skip john;[phone], and understanding confirmed on 07/30/2021 07:13:48 (ET). Electronically Signed: Jose Eduardo Crooks MD at 7:13 EDT Reading Location ID and State: [address] [place] [address] Tel , Service support , ADDENDUM: 07/30/21 0730 IMPRESSION: Negative CT brain without contrast. N.B. : The above Results were Read Back by Jose Eduardo Crooks MD to MD Justin, and understanding confirmed on 07/30/2021 07:23:07 (ET). Electronically Signed: Jose Eduardo Crooks MD at 7:13 EDT Reading Location ID and State: [address] [place] [address] Tel , Service support , ADDENDUM: 07/30/21 0750 Chest X-Ray 07/30/21 06:56 IMPRESSION: Normal x-ray examination of the chest. Electronically Signed: Matt Harris MD at 8:09 EDT Reading Location ID and State: [address] [place] [address] , Service support , Head/Neck CTA 07/30/21 06:57 IMPRESSION: No significant arterial narrowing in the head or neck. Electronically Signed: Jose Eduardo Crooks MD at 7:42 EDT Reading Location ID and State: [address] [place] [address] Tel , Service support , ADDENDUM: 07/30/21 0752 IMPRESSION: No significant arterial narrowing in the head or neck. N.B. : The above Results were Read Back by Jose Eduardo Crooks MD to MD Susie, and understanding confirmed on 07/30/2021 07:45:07 (ET). Electronically Signed: Jose Eduardo Crooks MD at 7:42 EDT Reading Location ID and State: [address] [place] [address] Tel , Service support , Assessment & Plan Assessment/Plan (1) CVA (cerebral vascular accident): QUALIFIERS: CVA mechanism: unspecified Qualified Code(s): I63.9 - Cerebral infarction, unspecified (2) GI bleed: QUALIFIERS: GI bleed type/associated pathology: unspecified gastrointestinal hemorrhage type Qualified Code(s): K92.2 - Gastrointestinal hemorrhage, unspecified PLAN: The patient is a 26 y/o M w/ PMHx: Anxiety and Depression/Bipolar disorder/recent Suicide attempt 05/2021 with ingestion of bleach/vodka with admission at that time with discharge to Psychiatric facility followiing, HTN, PUD, CKD stage IIIb, Tobacco use, IBS, Obesity who presents to the [facility] ED on 07/30/21 with history of onset over the last 3 days dark black stools with associated nausea and emesis and epigastric discomfort as well as a burning sensation in that region and into the lower chest with normalization of his stools on day of ED presentation but ongoing discomfort as well as onset upon awakening on day of presentation right eye altered blurred vision with significant visual deficits in the right eye except the right lower outer quadrant prompting evaluation in addition to mild subjective left-sided paresthesias. #1. R eye vision deficits, L sided paresthesias concerning for possible Acute CVA versus possible Demyelinating process: Will admit to PCU, will obtain MRI Brain with and without contrast, recent 05/2021 ECHO noted to be unremarkable with negative bubble study thus repeat deferred, PT/OT/Speech/Nutrition evaluation per protocol. Will consult Neurology for evaluation once MRI obtained. Will allow permissive HTN and resume regimen once able given recently has likely been poorly controlled, hold on ASA given concern for bleed and attempting obtain MRI stat, start statin. TSH, Mag, HgBA1c, FLP pending. Given age also requested hypercoagulable panel to be obtained. #2. Concern Acute GI Bleed w/ PUD Hx and prior GI bleed: Will maintain on IVFs, obtain serial H+H, maintain NPO status, maintain on IV PPI, GI consulted and if possible preference for early evaluation given #1 with possible antiplt needs as noted. #3. Acute pancreatitis, mild, likely secondary to #2 w/ mildly elevated LFTs: Will maintain on IVFs, NPO, PPI, trend lipase, CMP, will obtain RUQ US, FLP, notes only occasional EtOH usage. As noted GI consulted. #4. Hypertension, Uncontrolled: Given presentation #1 we will maintain permissive hypertension but once MRI obtained if unremarkable will immediately initiate regimen as this certainly could be contributing as well, in the interim we will maintain on as needed IV hydralazine and labetalol per stroke protocol. #5. Hypokalemia: Admission K+ 2.8, magnesium pending, supplementation given, repeat level in AM. #6. Hyponatremia, suspect hypovolemic: Admission sodium 130, chloride 93, recent poor oral intake and GI losses, continue aggressive hydration, trend BMP. #7. Anxiety and depression/bipolar disorder/prior suicide attempt: We will continue patient home psychiatric regimen, encourage continued aggressive outpatient counseling. #8. GERD with history of peptic ulcer disease: As noted will maintain on IV PPI pending further GI evaluation. #9. Chronic Kidney Disease Stage IIIb: Admission BUN/Cr 15/1.56, baseline renal function 1.5-1.9, repeat BMP in AM. #10. Obesity: Weight loss and lifestyle changes encouraged. #11. DVT prophylaxis: SCDs, defer chemoprophylaxis given possible GI bleed concerns. Charges/Coding Visit Charges Inpatient E&M: 13535 Init Hosp L3
--- NOTE | 2021-07-30 08:31 | US_ITS ---
STUDY: ABDOMINAL ULTRASOUND - RIGHT UPPER QUADRANT REASON FOR VISIT: Male, 26 years old abnormal LFTs . Abdominal pain. TECHNIQUE: Ultrasound evaluation of the right upper quadrant was performed with real-time and static [place]-scale imaging. TECHNICAL QUALITY: Adequate. COMPARISON: None. FINDINGS: Liver: The liver is enlarged and measures 21.3 cm. There is increased echogenicity consistent with fatty infiltration. The bile ducts are within normal limits. There is hepatic color flow. The direction of portal flow is hepatopetal. There is no demonstrated mass lesion. Gallbladder: Normal distended gallbladder. The gallbladder wall measures 2.1 mm. There is a negative sonographic Vicente''s sign. There is no pericholecystic fluid. There are no gallstones. Common Bile Duct (C.B.D.): The common bile duct measures 3.2 mm. Pancreas: Normal size of the head, body and tail of the pancreas. There is normal echogenicity of the pancreas. There is no demonstrated pancreatic mass or cyst. Right Kidney: Normal size of the right kidney. The right kidney measures 11.8 cm x 5.9 cm x 5.6 cm. Normal renal cortex. The right cortex measures 1.5 cm. There is no demonstrated renal mass or cyst. There is no right hydronephrosis. US/Liver IMPRESSION: Mild hepatomegaly and diffuse fatty infiltration of the liver. Electronically Signed: Matt Harris MD at 10:46 EDT ,
--- NOTE | 2021-07-30 08:52 | MRI_ITS ---
STUDY: MRI BRAIN WITH AND WITHOUT CONTRAST REASON FOR EXAM: Male, 26 years old. CVA vision loss in the right eye since this morning TECHNIQUE: Standardized multiplanar fat and water weighted pulse sequences were obtained. 20ml DOtarem was administered for the contrast portion of the examination. COMPARISON: Same day CT head FINDINGS: There is no acute infarct. There is a 1.2 cm deep right parietal white matter gliotic lesion without enhancement along the right optic radiations, corresponding to patient''s symptomatology. There are additional smaller, less than 5 mm white matter lesions. There is no mass effect, hydrocephalus or herniation. MRI/Brain W/WO Contrast IMPRESSION: 1. No acute infarct. 2. Right deep parietal white matter nonenhancing lesion, possibility of multiple sclerosis is raised. Electronically Signed: Antionette Cristobal MD at 17:55 EDT ,
[2021-07-30 09:15] LABS: Magnesium 2.2 mg/dL (1.6-2.6); Thyroid Stim Hormone (TSH) 1.72 uIU/mL (0.358-3.74)
[2021-07-30 09:54] LABS: Hemoglobin A1c 5.2 % (3.8-5.6)
[2021-07-30] MEDS: 0.9% Normal Saline 1,000 ML 125 ML IV (10:33)
[2021-07-30] MEDS: hydrALAZINE 20 MG/ML Vial 5 MG IV ×3 (10:33→15:12)
[2021-07-30] MEDS: clonazePAM 1 MG Tablet PO (10:36)
[2021-07-30 11:09] LABS: Hematocrit 42.1 % (40-54); Hemoglobin 15.3 g/dL (13.0-16.5)
[2021-07-30] MEDS: Sucralfate 1 GM Tablet PO ×3 (11:18→23:24)
--- NOTE | 2021-07-30 15:10 | CASEMGMT ---
RN CM PRODUCT TESTER FIBERGLASS CM to room to meet with patient for initial transition planning/care coordination assessment. MARGARITA DURAN introduced self and role at [facility]. Pt voices understanding and consents to assessment at this time. Pt resting in bed in no distress at this time. Pt is A/O at this time and answers all questions appropriately. Care providers, pharmacy, and demographics verified/updated at this time. PCP: No PCP. Provided w/list of local PCP's and advised to get established w/PCP Specialists: Pt states he sees a therapist, Isabela Cohn @ [facility]. Preferred Pharmacy: [facility] in [place] Insurance: [employer] Prescription Benefit: Yes Living Will/HPOA: Pt does not currently have LW/HCPOA and declines info at this time. LNOK: Pt has no NOK to list, stating, I have none. No emergency contact listed on demographics and pt states he does not have anyone to list, again stating, I have none Living Arrangements: Lives alone in an apt. 2 flights to get to apt which he states navigates well. Independent. Pt is a full-time employee @ [employer] full-time, but has been on MICHAEL since suicide attempt in May. Pt states is interested in talking w/SW to see if he qualifies for any assistance, as he has been off of work. Pt states he does receive financial rental assistance. Transportation: Pt states drives self and states no transportation concerns at this time. DME: Denies using any DME and denies needs. HHC/SNF: No hx of either. Pt wishes to return home and states has no concerns with going home at time of discharge. CM to follow for any further discharge planning/needs. Pt voices no further concerns/needs at this time. Advised pt to ask for CM if any further questions/concerns/needs arise. Voices understanding. PLAN: Home w/discharge plans in place PT/OT/ST jackson pending. SW referral for financial concerns/limited support Mckinley DARLING RN, CM
--- NOTE | 2021-07-30 15:50 | CHAPLAIN ---
Type of Pastoral Visit _x__ Initial Visit ___ Follow-up Visit ___ On-call Visit ___ General Patient Visit ___ Spiritual Assessment ___ Family Conference ___ Bereavement ___ Rapid Response ___ Code Blue ___ Other (describe below) Pastoral Care Referral From _x__ Patient ___ Family ___ Nurse ___ Physician ___ Baby Stroller Rental Clerk ___ Accounting Officer ___ Other (describe below) Sacrament/Intervention _x__ Active listening ___ Anointing ___ Yarsani ___ Bereavement ___ Communion _x__ Elis exploration ___ _x__ Life review _x__ Prayer ___ Reconciliation ___ Sacrament of Sick _x__ Supportive presence ___ Wedding ___ Other (describe below) Pastoral Comments had met this patient in a previous admission; pt remembers this cushion stuffer; pt gives update on his life and his counseling progress; pt has new physical illness and he states this adds to his stress and worries about finances and job; pt admits to having no real support except for his employer right now; pt says that he prays daily for God's help and is open to spiritual and emotional support from this cushion stuffer; support given
--- NOTE | 2021-07-30 18:04 | TELEMED_ITS ---
[facility] Telemed has confirmed receipt of a request for visit. This document confirms receipt of the order initiating the consult. To find the results of the consultation, please view the patient's reports for the scanned Telemed Consult.
--- NOTE | 2021-07-30 18:47 | CON.PCM.GI_ITS ---
HPI Consult Data Date of Consult: 07/30/21 HPI Narrative HPI Narrative: EDU WILCOX, is a 26 M known adjacent office after a previous suicide attempt by swallowing bleach. He underwent EGD and was discovered to have severe erosive esophagitis. Medical treatment was recommended. He also has a history of bipolar mood disorder and hypertension. He states for blood pressure he is only on prazosin. Reports past 4 days noted some burning in his abdomen he reported thought it was just his indigestion for which he takes omeprazole and Carafate. States there was burning sensation into his chest since yesterday. Denies any sharp pains. In the ED, he had elevated blood pressure systolic 240s. He states last week his blood pressure was 140. He states the headache for the past 2 days without trauma. He states he woke up 430 this morning with only 30% vision to his right eye. He does wear contacts and has it on. States there is some weakness in his legs also he came by private vehicle. Denies anticoagulation medications, denies any stroke history. He is being evaluated by neurology and a CT scan of the head head did not show any signs of acute ischemic stroke. He got an MRI of the brain and there is some suspicion of multiple sclerosis. [facility] Medical History (Updated 07/30/21 @ 18:[address] Soumya Fagan MD) Bipolar 1 disorder Bleach ingestion GERD (gastroesophageal reflux disease) Hypertension Irritable bowel syndrome (IBS) Overdose PUD (peptic ulcer disease) Stage 3b chronic kidney disease (CKD) Suicide gesture Tobacco abuse Home Medications sucralfate 1 g PO 1HR_ACHS #120 tab 05/19/21 [Rx Last Taken Unknown] aripiprazole [Abilify] 15 mg PO BID 07/30/21 [History Last Taken 07/30/21] clonazepam [Klonopin] 1 mg PO DAILY 07/30/21 [History Last Taken 07/29/21] clonazepam [Klonopin] 3 mg PO QHS 07/30/21 [History Last Taken 07/29/21] levetiracetam [Keppra] 250 mg PO DAILY 07/30/21 [History Last Taken 07/30/21] levetiracetam [Keppra] 500 mg PO QHS 07/30/21 [History Last Taken 07/29/21] omeprazole 40 mg PO DAILY 07/30/21 [History Last Taken 07/30/21] prazosin 5 mg PO QHS 07/30/21 [History Last Taken 07/29/21] trazodone 100 mg PO QHS 07/30/21 [History Last Taken 07/29/21] Allergy/AdvReac Type Severity Reaction Status Date / Time No Known Allergies Allergy Verified 07/30/21 06:49 Family History (Updated 07/30/21 @ 18:[address] Soumya Fagan MD) Mother Diabetes Hypertension HLD (hyperlipidemia) Bipolar disorder Father Hypertension HLD (hyperlipidemia) Bipolar disorder Diabetes Surgical History (Updated 07/30/21 @ 18:[address] Soumya Fagan MD) H/O left knee surgery Surgical History no surgical history Social History (Updated 07/30/21 @ 18:[address] Soumya Fagan MD) household members: none Smoking Status: Current every day smoker tobacco type: e-cigarettes Smokeless tobacco user: other alcohol intake: current alcohol intake frequency: a few times a week substance use type: does not use ROS Gastrointestinal Gastrointestinal: Reports dyspepsia and melena Physical Exam Const alert General Appearance: cooperative Orientation / Consciousness: oriented to person HEENT hearing grossly normal bilaterally Head and Scalp: normal to inspection Face and Sinus: face symmetric Nose: external nose normal Mouth: oral and palatal mucosa normal Eyes conjunctivae normal General Eye: normal appearance of both eyes Neck full ROM General: normal visual inspection Lymph Lymphatic: no lymphadenopathy noted Chest inspection of chest normal and palpation of chest normal Chest: symmetrical chest wall rise Resp normal respiratory effort Effort and Inspection: able to speak in complete sentences Cardio regular rate GI non-distended Percussion: normal to percussion Rectal Exam: deferred Neuro Speech: speech normal Gait (Neuro): normal gait Medical Records Data Medical Nutrition Assessment Dietitian: Malnutrition Criteria Met Start: 07/30/21 14:59 Freq: Status: Active Protocol: Document 07/30/21 14:59 AG (Rec: 07/30/21 14:59 [id number]) Nutrition Malnutrition Evidence of Malnutrition Exists Yes Malnutrition (severe): Acute Illness/Injury Evidenced By Suboptimal Energy Intake ( Severe),Weight Loss (Severe) Clinical Problem Acute Disease or Injury Related Malnutrition Etiology severe, acute malnutrition r/t GI dysfunction Signs/Symptoms as evidenced by unintentional wt loss of 9#/3.6% <1 week; estimated PO intake meeting < 50% of estimated energy needs x 5 days Status Active Problem Recommendation Dietitian Recommendations/Changes advance diet as tolerated to transitional; texture/ consistency modifications 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 Recommend advance diet to cardiac as tolerance of PO diet is established. Lab / Micro Data Result Diagrams: 07/30/21 10:53 07/30/21 07:20 Labs: Laboratory Results - last 24 hr 07/30/21 07:13: POC Glucose 87 07/30/21 07:20: WBC 5.6, RBC 4.46 L, Hgb 14.6, Hct 40.6, MCV 91.0, MCH 32.7 H, MCHC 36.0, RDW Std Deviation 42.0, RDW Coeff of [place] 12.6, Plt Count 122 L, MPV 11.7, Immature Gran % (Auto) 0.700, Neut % (Auto) 55.8, Lymph % (Auto) 11.4 L, [place] % (Auto) 23.8 H, Eos % (Auto) 7.2 H, Baso % (Auto) 1.1 H, Absolute Neuts (auto) 3.1, Absolute Lymphs (auto) 0.64 L, Nucleated RBC % 0 07/30/21 07:20: PT 13.0, INR 1.0, APTT 38.1 H 07/30/21 07:20: Sodium 130 L, Potassium 2.8 L, Chloride 93 L, Carbon Dioxide 27.0, Anion Gap 10, BUN 15, Creatinine 1.56 H, Estim Creat Clear Calc 68.21, Est GFR (MDRD) Af Amer 68, Est GFR (MDRD) Non-Af 56 L, BUN/Creatinine Ratio 9.6 L, Glucose 96, Calcium 9.2, Total Bilirubin 0.70, Direct Bilirubin 0.23, AST 86 H, ALT 82 H, Alkaline Phosphatase 74, Troponin I High Sens 67, Total Protein 7.7, Albumin 2.9 L, Globulin 4.8 H, Lipase 425 H 07/30/21 07:45: Urine Opiates Screen NEGATIVE, Urine Methadone Screen NEGATIVE, Ur Barbiturates Screen NEGATIVE, Ur Phencyclidine Scrn NEGATIVE, Ur Amphetamines Screen NEGATIVE, MDMA (Ecstasy) Screen NEGATIVE, U Benzodiazepines Scrn NEGATIVE, Urine Cocaine Screen NEGATIVE, U Cannabinoids Screen NEGATIVE, Ur Drug Screen Comment 07/30/21 08:45: Magnesium 2.2, TSH 1.72 07/30/21 08:45: Hemoglobin A1c 5.2 07/30/21 10:53: Hgb 15.3, Hct 42.1 07/30/21 17:22: Hgb Cancelled, Hct Cancelled Micro: Microbiology 07/30/21 08:30 Stool Stool Occult Blood (NAVEEN) - Final Occult Blood Positive Radiology Impression Brain CT 07/30/21 06:56 IMPRESSION: Negative CT brain without contrast. N.B. : The above Results were Read Back by Jose Eduardo Crooks MD to MD Justin, and understanding confirmed on 07/30/2021 07:23:07 (ET). Electronically Signed: Jose Eduardo Crooks MD at 7:13 EDT Reading Location ID and State: [address] [place] [address] Tel , Service support , ADDENDUM: 07/30/21 0720 IMPRESSION: Negative CT brain without contrast. N.B. : The above Results were Read Back by Jose Eduardo Crooks MD to Skip john;[phone], and understanding confirmed on 07/30/2021 07:13:48 (ET). Electronically Signed: Jose Eduardo Crooks MD at 7:13 EDT Reading Location ID and State: [address] [place] [address] Tel , Service support , ADDENDUM: 07/30/21 0730 IMPRESSION: Negative CT brain without contrast. N.B. : The above Results were Read Back by Jose Eduardo Crooks MD to MD Justin, and understanding confirmed on 07/30/2021 07:23:07 (ET). Electronically Signed: Jose Eduardo Crooks MD at 7:13 EDT Reading Location ID and State: [address] [place] [address] Tel , Service support , ADDENDUM: 07/30/21 0750 Chest X-Ray 07/30/21 06:56 IMPRESSION: Normal x-ray examination of the chest. Electronically Signed: Matt Harris MD at 8:09 EDT , Head/Neck CTA 07/30/21 06:57 IMPRESSION: No significant arterial narrowing in the head or neck. Electronically Signed: Jose Eduardo Crooks MD at 7:42 EDT Reading Location ID and State: [facility] / [place] Tel , Service support , ADDENDUM: 07/30/21 0752 IMPRESSION: No significant arterial narrowing in the head or neck. N.B. : The above Results were Read Back by Jose Eduardo Crooks MD to MD Susie, and understanding confirmed on 07/30/2021 07:45:07 (ET). Electronically Signed: Jose Eduardo Crooks MD at 7:42 EDT Reading Location ID and State: [facility] / [place] Tel , Service support , Liver Ultrasound 07/30/21 08:31 IMPRESSION: Mild hepatomegaly and diffuse fatty infiltration of the liver. Electronically Signed: Matt Harris MD at 10:46 EDT , Brain MRI 07/30/21 08:52 IMPRESSION: 1. No acute infarct. 2. Right deep parietal white matter nonenhancing lesion, possibility of multiple sclerosis is raised. Electronically Signed: Antionette Cristobal MD at 17:55 EDT , Assessment & Plan Assessment/Plan (1) GI bleed: QUALIFIERS: GI bleed type/associated pathology: unspecified gastrointestinal hemorrhage type Qualified Code(s): K92.2 - Gastrointestinal hemorrhage, unspecified PLAN: We will perform an upper endoscopy in the morning. He was explained alternatives, risk, benefits including outstanding bleeding, infection, sepsis, perforation, need for emergent surgery failure of an ASA of 3. Charges/Coding Visit Charges Inpatient E&M: 43805 Init Hosp L2
[2021-07-30] MEDS: 0.9% Normal Saline 1,000 ML 150 ML IV (18:58)
[2021-07-30] MEDS: hydroCHLOROthiazide 25 MG Tablet PO (23:23)
[2021-07-30] MEDS: traZODone 100 MG Tablet PO (23:24)
[2021-07-30] MEDS: amLODIPine 10 MG Tablet PO (23:24)
[2021-07-30] MEDS: ARIPiprazole 5 MG Tablet 15 MG PO (23:24)
[2021-07-30] MEDS: Atorvastatin Calcium 80 MG Tablet PO (23:25)
[2021-07-30] MEDS: Metoprolol Tartrate 25 MG Tablet PO (23:25)
[2021-07-30] MEDS: clonazePAM 1 MG Tablet 3 MG PO (23:39)
[2021-07-31] VITALS (22 sets, daily range): BP systolic 152–200; BP diastolic 91–133; PULSE 96–117; RESP 14–18; TEMP 36.3–37.2; O2SAT 95–100; BMI 36.6
[2021-07-31] MEDS: 0.9% Normal Saline 1,000 ML 150 ML IV ×3 (00:51→10:27)
[2021-07-31 05:14] LABS: Absolute Lymphocyte Count 1.12 X10^3/uL (0.83-4.51); Absolute Neutrophil Count 2.1 X10^3/uL (2.0-7.7); Basophil# 0.06 X10^3/uL; Basophil% 1.2 % (0-1); Eosinophil# 0.57 X10^3/uL; Eosinophils% 11.2 % (0-5); Hematocrit 40.1 % (40-54); Lymphocyte # 1.12 X10^3/ul (0.83-4.51); Lymphocyte % 22.1 % (19-41); Mean Corp Hgb Conc 34.9 g/dL (32-36); Mean Corpuscular Hgb 31.6 pg (27.0-32.0); Mean Corpuscular Volume 90.5 fL (80-94); Monocyte# 1.25 X10^3/uL; Monocyte% 24.7 % (0-10); NRBC Flagged by Analyzer 0 % (0-5); Neutrophil # 2.06 X10^3/uL (2.7-7.7); Neutrophil % 40.6 % (47-70); POSITIVE MORPHOLOGY YES; Platelet Count 115 K/mm3 (150-450); RBC Distribution Width CV 12.9 % (11.6-14.6); Red Blood Count 4.43 M/mm3 (4.6-6.2); White Blood Count 5.1 K/mm3 (4.4-11.0)
[2021-07-31 05:23] LABS: Differential Indicated SCAN CRITERIA MET
[2021-07-31 05:35] LABS: ALB/GLOB Ratio 0.6 RATIO (0.9-2.4); AST(SGOT) 95 U/L (15-37); Alanine Aminotransfer ALT/SGPT 93 U/L (16-61); Albumin, Serum 2.8 g/dL (3.2-5.0); Alkaline Phosphatase 67 U/L (45-117); Anion Gap 9 (5-15); BUN 13 mg/dL (7-18); BUN/Creat Ratio 9.6 RATIO (10-20); Calcium,Total 8.5 mg/dL (8.5-10.1); Chloride 101 mmol/L (98-107); Cholesterol 259 mg/dL (200); Creatinine, Serum 1.36 mg/dL (0.70-1.30); EST Glomerular Filtration Rate 66 mL/min (>60); Est Glom Filt Rate - Afr Amer 80 mL/min (>60); Estimated Creatinine Clearance 78.24 ml/min; Globulin 4.5 g/dL (2.2-4.2); Glucose 90 mg/dL (74-106); High Density Lipoprotein 50 mg/dL; Lipase 474 U/L (73-393); Potassium 2.8 mmol/L (3.5-5.1); Protein, Total 7.3 g/dL (6.4-8.2); Sodium Level 135 mmol/L (136-145); Triglycerides 123 mg/dL; Very Low Density Lipoprotein 25 mg/dL (5-40)
[2021-07-31 05:53] LABS: Differential Comment SCANNED
--- NOTE | 2021-07-31 06:00 | EKG12_ITS ---
Test Reason : PRE-OP Blood Pressure : / mmHG Vent. Rate : 095 BPM Atrial Rate : 095 BPM P-R Int : 128 ms QRS Dur : 102 ms QT Int : 396 ms P-R-T Axes : 044 012 071 degrees QTc Int : 497 ms Normal sinus rhythm Nonspecific T wave abnormality Prolonged QT Abnormal ECG When compared with ECG of 30-JUL-2021 07:14, MANUAL COMPARISON REQUIRED, DATA IS UNCONFIRMED Confirmed by SHABBIR HAYS, SYL ([id number]), photograph editor JRAAD ESTRADA ([id number]) on 08/03/2021 11:16:42 AM Referred By: DR BENITEZ Confirmed By:SYL SHEA MD
[2021-07-31] MEDS: hydrALAZINE 20 MG/ML Vial 10 MG IV ×2 (06:03→10:36)
--- NOTE | 2021-07-31 06:13 | PN.HOSP_ITS ---
Subjective Subjective Patient with no acute overnight per self and per nursing report. He did need further recurrent dark black stools. He does state still some epigastric discomfort but this is lessened since initial ED presentation and he notes being very hungry. He does report that his right eye vision has somewhat improved and he can see in both the bilateral lower quadrants of the right eye. He understands plan for early upper endoscopy to assure no concerning findings or active bleeding or bruising given likely need for steroid therapy with MRI findings concerning for MS although still awaiting neurology input. Patient denies fevers, chills, nausea, emesis, chest pain or dyspnea. Objective Data Objective Data Vital Signs: Vital Signs Temp Pulse Resp BP Pulse Ox 97.9 F 100 18 174/130 H 99 07/31/21 05:55 07/31/21 05:55 07/31/21 05:55 07/31/21 05:55 07/31/21 05:55 Oxygen Delivery Method Room Air Weight: 240 lb 15.444 oz Body Mass Index (BMI) 36.6 Intake & Output: Intake and Output for Last 24 Hours 07/29/21 07/30/21 07/31/21 23:59 23:59 23:59 Intake Total 1039.17 / 1039.17 992.5 / 992.5 Balance 1039.17 / 1039.17 992.5 / 992.5 Medical Nutrition Assessment Dietitian: Malnutrition Criteria Met Start: 07/30/21 14:59 Freq: Status: Active Protocol: Document 07/30/21 14:59 AG (Rec: 07/30/21 14:59 [id number]) Nutrition Malnutrition Evidence of Malnutrition Exists Yes Malnutrition (severe): Acute Illness/Injury Evidenced By Suboptimal Energy Intake ( Severe),Weight Loss (Severe) Clinical Problem Acute Disease or Injury Related Malnutrition Etiology severe, acute malnutrition r/t GI dysfunction Signs/Symptoms as evidenced by unintentional wt loss of 9#/3.6% <1 week; estimated PO intake meeting < 50% of estimated energy needs x 5 days Status Active Problem Recommendation Dietitian Recommendations/Changes advance diet as tolerated to transitional; texture/ consistency modifications per [employer] SET UP OPERATOR [employer]. Recommend advance diet to cardiac as tolerance of PO diet is established. Lab / Micro Data Result Diagrams: 07/31/21 04:07 07/31/21 04:07 Labs: Laboratory Results - last 24 hr 07/30/21 07:13: POC Glucose 87 07/30/21 07:20: WBC 5.6, RBC 4.46 L, Hgb 14.6, Hct 40.6, MCV 91.0, MCH 32.7 H, MCHC 36.0, RDW Std Deviation 42.0, RDW Coeff of [place] 12.6, Plt Count 122 L, MPV 11.7, Immature Gran % (Auto) 0.700, Neut % (Auto) 55.8, Lymph % (Auto) 11.4 L, [place] % (Auto) 23.8 H, Eos % (Auto) 7.2 H, Baso % (Auto) 1.1 H, Absolute Neuts (auto) 3.1, Absolute Lymphs (auto) 0.64 L, Nucleated RBC % 0 07/30/21 07:20: PT 13.0, INR 1.0, APTT 38.1 H 07/30/21 07:20: Sodium 130 L, Potassium 2.8 L, Chloride 93 L, Carbon Dioxide 27.0, Anion Gap 10, BUN 15, Creatinine 1.56 H, Estim Creat Clear Calc 68.21, Est GFR (MDRD) Af Amer 68, Est GFR (MDRD) Non-Af 56 L, BUN/Creatinine Ratio 9.6 L, Glucose 96, Calcium 9.2, Total Bilirubin 0.70, Direct Bilirubin 0.23, AST 86 H, ALT 82 H, Alkaline Phosphatase 74, Troponin I High Sens 67, Total Protein 7.7, Albumin 2.9 L, Globulin 4.8 H, Lipase 425 H 07/30/21 07:45: Urine Opiates Screen NEGATIVE, Urine Methadone Screen NEGATIVE, Ur Barbiturates Screen NEGATIVE, Ur Phencyclidine Scrn NEGATIVE, Ur Amphetamines Screen NEGATIVE, MDMA (Ecstasy) Screen NEGATIVE, U Benzodiazepines Scrn NEGATIVE, Urine Cocaine Screen NEGATIVE, U Cannabinoids Screen NEGATIVE, Ur Drug Screen Comment 07/30/21 08:45: Magnesium 2.2, TSH 1.72 07/30/21 08:45: Hemoglobin A1c 5.2 07/30/21 10:53: Hgb 15.3, Hct 42.1 07/30/21 17:22: Hgb Cancelled, Hct Cancelled 07/31/21 04:07: WBC 5.1, RBC 4.43 L, Hgb 14.0, Hct 40.1, MCV 90.5, MCH 31.6, MCHC 34.9, RDW Std Deviation 43.0, RDW Coeff of [place] 12.9, Plt Count 115 L, MPV 12.0, Immature Gran % (Auto) 0.200, Neut % (Auto) 40.6 L, Lymph % (Auto) 22.1, [place] % (Auto) 24.7 H, Eos % (Auto) 11.2 H, Baso % (Auto) 1.2 H, Absolute Neuts (auto) 2.1, Absolute Lymphs (auto) 1.12, Nucleated RBC % 0, Differential Comment SCANNED 07/31/21 04:07: Sodium 135 L, Potassium 2.8 L, Chloride 101, Carbon Dioxide 25.0, Anion Gap 9, BUN 13, Creatinine 1.36 H, Estim Creat Clear Calc 78.24, Est GFR (MDRD) Af Amer 80, Est GFR (MDRD) Non-Af 66, BUN/Creatinine Ratio 9.6 L, Glucose 90, Calcium 8.5, Total Bilirubin 0.60, AST 95 H, ALT 93 H, Alkaline Phosphatase 67, Total Protein 7.3, Albumin 2.8 L, Globulin 4.5 H, Albumin/Globulin Ratio 0.6 L, Triglycerides 123, Cholesterol 259 H, LDL Cholesterol 184 H, VLDL Cholesterol 25, HDL Cholesterol 50, Lipase 474 H Micro: Microbiology 07/30/21 08:30 Stool Stool Occult Blood (NAVEEN) - Final Occult Blood Positive Radiography Diagnostic Testing: Radiology Impression Brain CT 07/30/21 06:56 IMPRESSION: Negative CT brain without contrast. N.B. : The above Results were Read Back by Jose Eduardo Crooks MD to MD Justin, and understanding confirmed on 07/30/2021 07:23:07 (ET). Electronically Signed: Jose Eduardo Crooks MD at 7:13 EDT Reading Location ID and State: [facility] / [place] Tel , Service support , ADDENDUM: 07/30/21 0720 IMPRESSION: Negative CT brain without contrast. N.B. : The above Results were Read Back by Jose Eduardo Crooks MD to Skip john;[phone], and understanding confirmed on 07/30/2021 07:13:48 (ET). Electronically Signed: Jose Eduardo Crooks MD at 7:13 EDT Reading Location ID and State: [address] [place] [address] Tel , Service support , ADDENDUM: 07/30/21 0730 IMPRESSION: Negative CT brain without contrast. N.B. : The above Results were Read Back by Jose Eduardo Crooks MD to MD Justin, and understanding confirmed on 07/30/2021 07:23:07 (ET). Electronically Signed: Jose Eduardo Crooks MD at 7:13 EDT Reading Location ID and State: [address] [place] [address] Tel , Service support , ADDENDUM: 07/30/21 0750 Chest X-Ray 07/30/21 06:56 IMPRESSION: Normal x-ray examination of the chest. Electronically Signed: Matt Harris MD at 8:09 EDT Reading Location ID and State: [facility] / [place] , Service support , Head/Neck CTA 07/30/21 06:57 IMPRESSION: No significant arterial narrowing in the head or neck. Electronically Signed: Jose Eduardo Crooks MD at 7:42 EDT Reading Location ID and State: [address] [place] [address] Tel , Service support , ADDENDUM: 07/30/21 0752 IMPRESSION: No significant arterial narrowing in the head or neck. N.B. : The above Results were Read Back by Jose Eduardo Crooks MD to MD Susie, and understanding confirmed on 07/30/2021 07:45:07 (ET). Electronically Signed: Jose Eduardo Crooks MD at 7:42 EDT , Liver Ultrasound 07/30/21 08:31 IMPRESSION: Mild hepatomegaly and diffuse fatty infiltration of the liver. Electronically Signed: Matt Harris MD at 10:46 EDT , Brain MRI 07/30/21 08:52 IMPRESSION: 1. No acute infarct. 2. Right deep parietal white matter nonenhancing lesion, possibility of multiple sclerosis is raised. Electronically Signed: Antionette Cristobla MD at 17:55 EDT , Physical Exam Narrative Physical Examination: General: Awake, alert, oriented x 3 and cooperative, seated upright in the PCU bed, notes improved since day prior. Skin: Normal color, normal turgor, no icterus, no cyanosis. HEENT: AT/NC, EOMI, PERRLA, right field deficit improved with bilateral lower quadrant visualization and still some decreased vision in the upper quadrants but improved from day prior, mildly dry MM. Lungs: Distant, diminished, appropriate effort, no rales, ronchi or wheezing. Heart: Regular rate with regular rhythm; no gallop, rub audible. Abdomen: Soft, obese, lessen discomfort to the epigastric palpation otherwise nontender, no obvious distention, mildly hyperactive bowel sounds. Extremities: No cyanosis, clubbing, or edema. Neurological: Patient awake, alert, oriented as noted, cognitive function intact; pupils equally reactive to light and accommodation, cranial nerves grossly normal except noted evidence of right sided field deficits with improvement with visualization in both lower quadrants of the right eye as noted, moving all 4 extremities, no focal deficits, strength preserved, equivocal Babinski, appropriate [id number], improved [id number] bilaterally, paresthesias resolved. Psychiatric: Affect appears normal, no acute evidence of depressive or anxiety feelings. Assessment & Plan Assessment/Plan (1) CVA (cerebral vascular accident): QUALIFIERS: CVA mechanism: unspecified Qualified Code(s): I63.9 - Cerebral infarction, unspecified (2) GI bleed: QUALIFIERS: GI bleed type/associated pathology: unspecified gastr ointestinal hemorrhage type Qualified Code(s): K92.2 - Gastrointestinal he morrhage, unspecified PLAN: The patient is a 26 y/o M w/ PMHx: Anxiety and Depression/Bipolar disorder/recent Suicide attempt 05/2021 with ingestion of bleach/vodka with a dmission at that time with discharge to Psychiatric facility followiing, HTN, PUD, CKD stage IIIb, Tobacco use, IBS, Obesity who presents to the [facility] ED on 07/30/21 with history of onset over the last 3 days dark black stools with associated nausea and emesis and epigastric discomfort as well as a burning sensation in that region and into the lower chest with normalization of his stools on day of ED presentation but ongoing discomfort as well as onset upon awakening on day of presentation right eye altered blurred vision with significant visual deficits in the right eye except the right lower outer quadrant prompting evaluation in addition to mild subjective left-sided paresthesias. #1. R eye vision deficits, L sided paresthesias concerning for possible Demyelinating process, Acute CVA RULED OUT: Admitted to PCU, MRI brain obtained obtained with noted no acute infarct however there was a right deep parietal white matter nonenhancing lesion with concern for possible MS, NIH stroke scale discontinued and patient transition to scheduled neurochecks, recent 05/2021 ECHO noted to be unremarkable with negative bubble study thus repeat deferred, PT/OT/Speech/Nutrition evaluation per protocol. Following MRI results neurology repeat evaluation has been requested and is still pending. Hemoglobin A1c 5.2%, magnesium 2.2, FLP with total cholesterol ablation but not severe appearing, TSH 1.72. #2. Concern Acute GI Bleed w/ PUD Hx and prior GI bleed: Patient was initially admitted with concern for GI bleed, maintain on IV fluids, hemoglobin have remained stable, initially n.p.o. status with 08/01/2019 2 AM endoscopy which was well-appearing per discussion with gastroenterology, diet transition per GI, will transition IV PPI to oral PPI and continue Carafate. Given there is no appearance of an acute stroke antiplatelet therapies are deferred at this time and patient as noted above is being evaluated for MS. Discussed with GI and if steroids are necessary they are amenable especially given no evidence of active bleeding or concerning findings on EGD. #3. Acute pancreatitis, mild, likely secondary to #2 w/ mildly elevated LFTs: Maintain IV fluids, initially n.p.o. status however GI has allowed transition to diet, continued on PPI initially IV transition to oral with continued Carafate, will continue to trend lipase which remains mildly elevated in the 400 range, right upper quadrant/liver ultrasound with mild hepatomegaly and diffuse fatty infiltration of the liver with no marked findings of the gallbladder. FLP with total cholesterol elevation but not severe appearing. If patient does have further epigastric discomfort and lipase does rise will need to transition back to n.p.o. status versus clears. #4. Hypertension, Uncontrolled: Given presentation #1 we will maintain permissive hypertension but once MRI obtained if unremarkable will immediately initiate regimen as this certainly could be contributing as well, in the interim we will maintain on as needed IV hydralazine and labetalol per stroke protocol. #5. Hypokalemia: Admission K+ 2.8, magnesium 2.2, supplementation given, repeat level 2.8, will give additional oral supplementation and repeat level this evening. #6. Hyponatremia, suspect hypovolemic: Admission sodium 130, chloride 93, rec ent poor oral intake and GI losses, continue aggressive hydration, 07/31/2021 Na 135, continue to trend. #7. Anxiety and depression/bipolar disorder/prior suicide attempt: We will continue patient home psychiatric regimen, encourage continued aggressive outpatient counseling. #8. GERD with history of peptic ulcer disease: As noted will maintain on IV PPI pending further GI evaluation. #9. Chronic Kidney Disease Stage IIIb: Admission BUN/Cr 15/1.56, baseline renal function 1.5-1.9, 07/31/2021 BUN/creat 13/1.36, continue to trend. #10. Obesity: Weight loss and lifestyle changes encouraged. #11. DVT prophylaxis: SCDs, defer chemoprophylaxis given initial presentation GI bleed concerns. Charges/Coding Visit Charges Inpatient E&M: 57640 Subs Hosp L2
[2021-07-31] MEDS: Potassium Chloride 10mEq/100mL 10 MEQ/100 ML IV.SOLN. 100 MEQ IV BOLUS ×2 (06:30→07:34)
[2021-07-31 06:43] LABS: Phosphorus 3.5 mg/dL (2.5-4.9)
--- NOTE | 2021-07-31 09:24 | OP.CCLET_ITS ---
02/02/2022 No Primary Care Physician Re : Upper GI endoscopy procedure for Michael Ulloa Dear Care Physician This procedure was performed on Saturday, July 31, 2021. My impressions and recommendations are as follows: Impressions : - LA Grade A reflux esophagitis. - Medium-sized hiatal hernia. - Erythematous mucosa in the stomach. - Normal second portion of the duodenum. - No specimens collected. Recommendations : - Discharge patient to home. - Resume regular diet. - Continue present medications. - Protonix 40mg Q12 My findings are described in the full procedure note, which is enclosed. If I can be of further assistance, please feel free to contact me at . Sincerely, Dave Stratton, 07/31/2021 9:23:41 AM This report has been signed electronically.
--- NOTE | 2021-07-31 09:24 | OP.EGD_ITS ---
Patient Name: Michael Ulloa Procedure Date: 07/31/2021 9:07 AM Date of : 1995 Age: 26 Procedure: Upper GI endoscopy Indications: Melena Providers: Dave Stratton DO Medicines: See the Anesthesia note for documentation of the administered medications Patient Profile: This is a 26 year old male. Refer to note in patient chart for documentation of history and physical. Patient has symptoms. He is status post EGD for biopsy within the past three months. Complications: No immediate complications. Procedure: Pre-Anesthesia Assessment: - Prior to the procedure, a History and Physical was performed, and patient medications and allergies were reviewed. The risks and benefits of the procedure and the sedation options and risks were discussed with the patient. All questions were answered and informed consent was obtained. Patient identification and proposed procedure were verified by the physician in the pre-procedure area. Mental Status Examination: alert and oriented. Airway Examination: normal oropharyngeal airway and neck mobility. Respiratory Examination: clear to auscultation. CV Examination: normal. Prophylactic Antibiotics: The patient does not require prophylactic antibiotics. Prior Anticoagulants: The patient has taken no previous anticoagulant or antiplatelet agents. ASA Grade Assessment: II - A patient with mild systemic disease. After reviewing the risks and benefits, the patient was deemed in satisfactory condition to undergo the procedure. The anesthesia plan was to use moderate sedation / analgesia (conscious sedation). Immediately prior to administration of medications, the patient was re-assessed for adequacy to receive sedatives. The heart rate, respiratory rate, oxygen saturations, blood pressure, adequacy of pulmonary ventilation, and response to care were monitored throughout the procedure. The physical status of the patient was re-assessed after the procedure. After obtaining informed consent, the endoscope was passed under direct vision. Throughout the procedure, the patient's blood pressure, pulse, and oxygen saturations were monitored continuously. The gastroscope was introduced through the mouth, and advanced to the second part of duodenum. The upper GI endoscopy was accomplished without difficulty. The patient tolerated the procedure well. Moderate Sedation: Moderate (conscious) sedation was administered by the endoscopy nurse and supervised by the endoscopist. The patient's oxygen saturation, heart rate, blood pressure and response to care were monitored. Total physician intraservice time was 15 minutes. Scope In: 9:18:43 AM Scope Out: 9:20:21 AM Total Procedure Duration Time 0 hours 1 minute 38 seconds Findings: LA Grade A (one or more mucosal breaks less than 5 mm, not extending between tops of 2 mucosal folds) esophagitis with no bleeding was found 34 to 35 cm from the incisors. A medium-sized hiatal hernia was present. Diffuse mildly erythematous mucosa without bleeding was found in the entire examined stomach. The second portion of the duodenum was normal. Impression: - LA Grade A reflux esophagitis. - Medium-sized hiatal hernia. - Erythematous mucosa in the stomach. - Normal second portion of the duodenum. - No specimens collected. Recommendation: - Discharge patient to home. - Resume regular diet. - Continue present medications. - Protonix 40mg Q12 Procedure Code(s): --- Professional --- 02305, Esophagogastroduodenoscopy, flexible, transoral; diagnostic, including collection of specimen(s) by brushing or washing, when performed (separate procedure) 75276, 59, Moderate sedation services provided by the same physician or other qualified health director of managed care performing the diagnostic or therapeutic service that the sedation supports, requiring the presence of an independent trained observer to assist in the monitoring of the patient's level of consciousness and physiological status; initial 15 minutes of intraservice time, patient age 5 years or older CPT copyright 2017 [employer]. All rights reserved. The codes documented in this report are preliminary and upon drill grinder review may be revised to meet current compliance requirements. Dave Stratton DO 07/31/2021 9:23:41 AM This report has been signed electronically. Number of Addenda: 1 Note Initiated On: 07/31/2021 9:07 AM Addendum Number: 1 Addendum Date: 02/02/2022 6:19:51 AM MAC was used as sedation for this procedure. Dave Stratton DO 02/02/2022 6:19:55 AM This report has been signed electronically.
[2021-07-31] MEDS: ARIPiprazole 5 MG Tablet 15 MG PO ×2 (10:16→20:21)
[2021-07-31] MEDS: Metoprolol Tartrate 25 MG Tablet PO ×2 (10:16→20:21)
[2021-07-31] MEDS: hydroCHLOROthiazide 25 MG Tablet PO (10:16)
[2021-07-31] MEDS: Lisinopril 40 MG Tablet PO (10:17)
[2021-07-31] MEDS: Sucralfate 1 GM Tablet PO ×3 (10:17→20:22)
[2021-07-31] MEDS: amLODIPine 10 MG Tablet PO (10:18)
[2021-07-31] MEDS: clonazePAM 1 MG Tablet PO (10:27)
[2021-07-31] MEDS: 0.9% Saline Lock 10 ML Syringe IV (10:36)
[2021-07-31] MEDS: Potassium Chloride Oral Tablet 20 MEQ 60 MEQ PO (14:57)
[2021-07-31 16:40] LABS: Anion Gap 9 (5-15); BUN 11 mg/dL (7-18); Calcium,Total 8.8 mg/dL (8.5-10.1); Chloride 107 mmol/L (98-107); Creatinine, Serum 1.57 mg/dL (0.70-1.30); EST Glomerular Filtration Rate 56 mL/min (>60); Est Glom Filt Rate - Afr Amer 68 mL/min (>60); Estimated Creatinine Clearance 67.77 ml/min; Glucose 149 mg/dL (74-106); Potassium 3.1 mmol/L (3.5-5.1); Sodium Level 136 mmol/L (136-145)
--- NOTE | 2021-07-31 16:41 | CASEMGMT ---
Addendum entered by Ly Swift 07/31/21 16:43: Letty [facility] is also In-network yina/Kenzie. Original Note: Insurance review for hospitals In-network with [facility] Insurance if transfer is recommended is as follows: Landon Espino (Formerly [facility]), and . Mckinley CARTERN RN CM
--- NOTE | 2021-07-31 16:45 | MRI_ITS ---
STUDY: MRI ORBITS WITH AND WITHOUT CONTRAST REASON FOR EXAM: Male, 26 years old. Concern optic nerve involvement -- Look at optic nerve, any enhancement. TECHNIQUE: Standardized fat and water weighted pulse sequences were obtained in all 3 orthogonal planes, pre-and post contrast administration. IV 22mL DOTAREM was administered for the contrast portion of the examination. COMPARISON: None. FINDINGS: Normal bilateral globes. Normal bilateral optic nerve sheath complexes and optic nerves. Normal bilateral intraconal and extraconal spaces. Normal bilateral extraocular muscles. No abnormal enhancement. Normal optic chiasm and post-chiasmatic tracts. Normal sella turcica, pituitary gland, infundibular stalk, and hypothalamus. Normal bilateral cavernous sinuses. No enhancing lesion. Normal flow voids within the major intracranial circulation suggesting patency by spin echo criteria. Normal size of the ventricles and extra-axial spaces for the patient''s age. MRI/Orbit Face Neck W/WO Contrast IMPRESSION: Normal enhanced and unenhanced MRI of the orbits. Electronically Signed: Tiana Kitchen MD at 19:19 EDT Reading Location ID and State: [id number] / Tel , Service support ,
--- NOTE | 2021-07-31 17:22 | DS.PCM_ITS ---
Providers Date of Admission: 07/30/21 Primary Care Physician: Aleena Primary Care Phys Reason For Visit: GI BLEED, CVA Diagnosis Discharge Diagnosis (1) CVA (cerebral vascular accident): Status: Acute Code(s): I63.9 - Cerebral infarction, unspecified Qualifiers: CVA mechanism: unspecified Qualified Code(s): I63.9 - Cerebral infarction, unspecified (2) GI bleed: Status: Acute Code(s): K92.2 - Gastrointestinal hemorrhage, unspecified Qualifiers: GI bleed type/associated pathology: unspecified gastrointestinal hemorrhage type Qualified Code(s): K92.2 - Gastrointestinal hemorrhage, unspecified Medications at Discharge Home Medications sucralfate 1 g PO 1HR_ACHS #120 tab 05/19/21 aripiprazole [Abilify] 15 mg PO BID 07/30/21 clonazepam [Klonopin] 1 mg PO DAILY 07/30/21 clonazepam [Klonopin] 3 mg PO QHS 07/30/21 levetiracetam [Keppra] 250 mg PO DAILY 07/30/21 levetiracetam [Keppra] 500 mg PO QHS 07/30/21 omeprazole 40 mg PO DAILY 07/30/21 prazosin 5 mg PO QHS 07/30/21 trazodone 100 mg PO QHS 07/30/21 Hospital Course Operations None Procedures EKG Summary of Care Provided Minutes Spent on Discharge: 35 Hospital Course: Discharge Diagnoses: #1. R eye vision deficits, L sided paresthesias concerning for Possible Demyelinating process, Possible BENNETT/OBIE, Possible Rental Hemorrhage, Acute CVA RULED OUT #2. Concern Acute GI Bleed w/ PUD Hx and prior GI bleed with EGD without acute bleed evident #3. Acute pancreatitis, mild, likely secondary to #2 w/ mildly elevated LFTs (GM normal, FLP no severe appearing, denies marked EtOH) #4. Hypertension, Uncontrolled (Recent psych d/c without HTN regimen) #5. Hypokalemia #6. Hyponatremia, hypovolemic #7. Anxiety and depression/bipolar disorder/prior suicide attempt #8. GERD with history of peptic ulcer disease #9. Chronic Kidney Disease Stage IIIb (baseline renal function 1.5-1.9), 07/31/2021 BUN/creat 13/1.36 #10. Obesity Discharge Summary: The patient is a 26 y/o M w/ PMHx: Anxiety and Depression/Bipolar disorder/recent Suicide attempt 05/2021 with ingestion of bl each/vodka with admission at that time with discharge to Psychiatric facility followiing, HTN, PUD, CKD stage IIIb, Tobacco use, IBS, Obesity who presented to the [facility] ED on 07/30/21 with history of onset over the last 3 days dark black stools with associated nausea and emesis and epigastric discomfort as well as a burning sensation in that region and into the lower chest with normalization of his stools on day of ED presentation but ongoing discomfort as well as onset upon awakening on day of presentation right eye altered blurred vision with significant visual deficits in the right eye except the right lower outer quadrant prompting evaluation in addition to mild subjective left-sided parest hesias. Admitted to PCU, MRI brain obtained obtained with noted no acute infarct however there was a right deep parietal white matter nonenhancing lesion with concern for possible MS, NIH stroke scale discontinued and patient transition to scheduled neurochecks, recent 05/2021 ECHO noted to be unremarkable with negative bubble study thus repeat deferred, PT/OT/Speech/Nutrition evaluation per protocol. Hemoglobin A1c 5.2%, magnesium 2.2, FLP with total cholesterol mild elevation but not severe appearing, TSH 1.72. Patient was initially admitted with concern for GI bleed, maintained on IV fluids, hemoglobin remained stable with no black stools, initially n.p.o. status with 08/01/2019 AM endoscop y with LA grade a reflux esophagitis with medium sized hiatal hernia, erythematous mucosa in the stomach, normal second portion of the duodenum with recommended resumption of diet and continued PPI as well as Carafate which he had already been on. Patient given improvement was allowed a diet which she tolerated and transition to oral PPI with continue Carafate. Patient with mildly elevated lipase upon presentation however epigastric discomfort improved and as noted EGD was not marked appearing. Patient tolerated resumption of diet. Right upper quadrant/liver ultrasound was notable for only mild hepatomegaly and diffuse fatty infiltration of the liver with no marked findings of the gallbladder. During admission patient did have uncontrolled hypertension especially upon presentation and from discussions when patient was transitioned in May to psychiatric facility when he was discharged he was not placed on any of these medications and likely has been hypertensive since. Following MRI results with no obvious stroke hypertensive regimens were reinitiated with plan for continued adjustments over the next 2448 hrs. for improved control. Repeat neurology consultation requested once MRI resulted with concern for possible right central retinal artery occlusion versus right central retinal vein occlusion versus intraocular hemorrhage secondary to severe hypertension upon presentation as well as possible although less likely optic neuritis. Neurologist given discussion that this morning the lower quadrant had improved suggestive of altitudinal defect potentially retinal branch artery occlusion more likely. Neurology recommended transfer for ophthalmology consultation, obtain MRI of the orbits with a focus on the optic nerves to rule out optic neuritis with and without contrast, consider lumbar puncture for CSF cell count, total protein, glucose, cytology, monoclonal bands, MVP, NO level, serum and MO antibody testing (aquaporin-4 autoantibody and MOG antibody), treat with IV methylprednisolone for optic neuritis until ruled out with initiation of 500 mg/day for 3 to 5 days, obtain ESR and CRP as well as KEIKO, homocystine, B12, folate, HIV, RPR and thiamine levels. Patient's lab test as well as MRI was requested pending tertiary facility transfer. Lumbar puncture will therefore need to be initiated therefore at tertiary facility. Discussed with transfer physician Dr. Barrera at [facility] who requested given time and Monday transition to their facility that MRI of the orbits be performed at [facility] but not necessarily read and once there is are obtained to update them that they have been performed and once resulted to transition record s to their facility. Discharge Time: > 35 Minutes Medical Records Data Medical Nutrition Assessment Dietitian: Malnutrition Criteria Met Start: 07/30/21 14:59 Freq: Status: Active Protocol: Document 07/30/21 14:59 (Rec: 07/30/21 14:59 AG [id number]) Nutrition Malnutrition Evidence of Malnutrition Exists Yes Malnutrition (severe): Acute Illness/Injury Evidenced By Suboptimal Energy Intake ( Severe),Weight Loss (Severe) Clinical Problem Acute Disease or Injury Related Malnutrition Etiology severe, acute malnutrition r/t GI dysfunction Signs/Symptoms as evidenced by unintentional wt loss of 9#/3.6% <1 week; estimated PO intake meeting < 50% of estimated energy needs x 5 days Status Active Problem Recommendation Dietitian Recommendations/Changes advance diet as tolerated to transitional; texture/ consistency modifications per DUPLICATION SPECIALIST. Recommend advance diet to cardiac as tolerance of PO diet is established. Weight / BMI Weight Weight: 242 lb 15.19 oz Body Mass Index (BMI) 36.6 ABG / Lab / Microbiology Data Result Diagrams: 07/31/21 04:07 07/31/21 16:14 Laboratory: Laboratory Results - last 24 hr 07/30/21 17:22: Hgb Cancelled, Hct Cancelled 07/31/21 04:07: WBC 5.1, RBC 4.43 L, Hgb 14.0, Hct 40.1, MCV 90.5, MCH 31.6, MCHC 34.9, RDW Std Deviation 43.0, RDW Coeff of [place] 12.9, Plt Count 115 L, MPV 12.0, Immature Gran % (Auto) 0.200, Neut % (Auto) 40.6 L, Lymph % (Auto) 22.1, [place] % (Auto) 24.7 H, Eos % (Auto) 11.2 H, Baso % (Auto) 1.2 H, Absolute Neuts (auto) 2.1, Absolute Lymphs (auto) 1.12, Nucleated RBC % 0, Differential Comment SCANNED 07/31/21 04:07: Sodium 135 L, Potassium 2.8 L, Chloride 101, Carbon Dioxide 25.0, Anion Gap 9, BUN 13, Creatinine 1.36 H, Estim Creat Clear Calc 78.24, Est GFR (MDRD) Af Amer 80, Est GFR (MDRD) Non-Af 66, BUN/Creatinine Ratio 9.6 L, Glucose 90, Calcium 8.5, Total Bilirubin 0.60, AST 95 H, ALT 93 H, Alkaline Phosphatase 67, Total Protein 7.3, Albumin 2.8 L, Globulin 4.5 H, Albumin/Globulin Ratio 0.6 L, Triglycerides 123, Cholesterol 259 H, LDL Cholesterol 184 H, VLDL Cholesterol 25, HDL Cholesterol 50, Lipase 474 H 07/31/21 04:07: Phosphorus 3.5 07/31/21 16:14: Sodium 136, Potassium 3.1 L, Chloride 107, Carbon Dioxide 20.0 L , Anion Gap 9, BUN 11, Creatinine 1.57 H, Estim Creat Clear Calc 67.77, Est GFR (MDRD) Af Amer 68, Est GFR (MDRD) Non-Af 56 L, BUN/Creatinine Ratio 7.0 L, Glucose 149 H, Calcium 8.8 07/31/21 16:14: C-React Prot Ext Range 73.70 H Microbiology: Microbiology 07/30/21 08:30 Stool Stool Occult Blood (NAVEEN) - Final Occult Blood Positive Radiography Diagnostic Testing: Radiology Impression Brain MRI 07/30/21 08:52 IMPRESSION: 1. No acute infarct. 2. Right deep parietal white matter nonenhancing lesion, possibility of multiple sclerosis is raised. Electronically Signed: Antionette Cristobal MD at 17:55 EDT , Meaningful Use Info Meaningful Use Diagnoses (Choose all that apply): None applicable Discharge Plan Admission Admit Date/Time: 07/30/21 08:18 Attending Provider: Soumya Fagan Primary Care Provider: Care Physician,No Primary Discharge Orders/Prescriptions Prescriptions: No Action sucralfate 1 gram Tablet 1 g PO 1HR_ACHS Qty: 120 RF: 0 levetiracetam [Keppra] 500 mg Tablet 500 mg PO QHS RF: 0 clonazepam [Klonopin] 1 mg Tablet 1 mg PO DAILY RF: 0 clonazepam [Klonopin] 1 mg Tablet 3 mg PO QHS RF: 0 prazosin 5 mg Capsule 5 mg PO QHS RF: 0 levetiracetam [Keppra] 250 mg Tablet 250 mg PO DAILY RF: 0 trazodone 100 mg Tablet 100 mg PO QHS RF: 0 aripiprazole [Abilify] 15 mg Tablet 15 mg PO BID RF: 0 omeprazole 40 mg Capsule,Delayed Release(Dr/Ec) 40 mg PO DAILY RF: 0 Referrals / Follow Up: Care Physician,No Primary [Primary Care Provider] - Disposition Discharge Orders: Discharge Patient (Routine); Ordered 07/31/21 Ordered By: Dr. Soumya Fagan Charges/Coding Visit Charges Inpatient E&M: 84444 Disch Hosp
--- NOTE | 2021-07-31 19:55 | NURSING ---
report called to Letty dennis [phone] Bernadette quezada rn
[2021-07-31] MEDS: traZODone 100 MG Tablet PO (20:21)
[2021-07-31] MEDS: Pantoprazole Sodium 40 MG Tablet PO (20:21)
[2021-07-31] MEDS: Atorvastatin Calcium 80 MG Tablet PO (20:21)
[2021-07-31] MEDS: clonazePAM 1 MG Tablet 3 MG PO (20:22)
--- NOTE | 2021-07-31 20:24 | NURSING ---
This RN received call from Nursing Spotter Driver @ [facility]. They changed patient status to Tele and he is now going to bed 791 - 2, phone number to call for report is [phone]
--- NOTE | 2021-07-31 20:27 | NURSING ---
patient requesting medications before discharge to [facility].
[2021-07-31 20:46] LABS: Erythrocyte Sedimentation Rate 56 mm/hr (0-20)
[2021-08-02 09:00] LABS: Vitamin B12 1015 pg/mL (211-911)
[2021-08-02 09:25] LABS: HIV - WCH Non-Reactive (Nonreactive)
[2021-08-03 15:15] LABS: ANTINUCLEAR ANTIBODIES DIRECT Negative (Negative)
[2021-08-09 09:07] LABS: Protein C Antigen 110 % (60-150); Protein C, Functional 154 % (73-180)
[2021-08-09 13:21] LABS: Anti-Cardiolipin Ab, IgG, Qn 24 GPL U/mL (0-14); Anti-Cardiolipin Ab, IgM, Qn 18 MPL U/mL (0-12); Anti-Thrombin 3 AG, Immunol 97 % (72-124); Antithrombin 3 Function 120 % (75-135); Beta-2-Glycoprotein I IgA <9 (0-25); Beta-2-Glycoprotein I IgG <9 (0-20); Beta-2-Glycoprotein I IgM <9 (0-32)
[2021-08-17 16:21] LABS: Vitamin B1, Thiamine 101.6 nmol/L (66.5-200.0)
== END 2021-07-31 21:05 | disposition short-term general hospital (02) | DRG 123 ==
LOC: ED 08:04 → PCU 08:41
PROVIDERS: Internal Medicine; Internal Medicine Gastroenterology; Admitting Provider Family Medicine; Emergency Provider Emergency Medicine; Visit Provider Family Medicine
PROC: 0DJ08ZZ Inspection of Upper Intestinal Tract, Via Natural or Artificial Opening Endoscopic (ICD-10-PCS; CPT 43235; principal; 2021-07-31 09:30)
DX: H34.231 Retinal artery branch occlusion, right eye (principal); E43 Unspecified severe protein-calorie malnutrition; K85.90 Acute pancreatitis without necrosis or infection, unspecified; E87.1 Hypo-osmolality and hyponatremia; K92.2 Gastrointestinal hemorrhage, unspecified; I16.1 Hypertensive emergency; H53.131 Sudden visual loss, right eye; H53.47 Heteronymous bilateral field defects; G93.89 Other specified disorders of brain; K76.0 Fatty (change of) liver, not elsewhere classified; F31.9 Bipolar disorder, unspecified; N18.32 Chronic kidney disease, stage 3b; E86.1 Hypovolemia; F17.290 Nicotine dependence, other tobacco product, uncomplicated; I12.9 Hypertensive chronic kidney disease with stage 1 through stage 4 chronic kidney disease, or unspecified chronic kidney disease; K58.9 Irritable bowel syndrome, unspecified; E87.6 Hypokalemia; F41.9 Anxiety disorder, unspecified; K44.9 Diaphragmatic hernia without obstruction or gangrene; Z87.11 Personal history of peptic ulcer disease; Z79.899 Other long term (current) drug therapy; Z91.51 Personal history of suicidal behavior; E66.9 Obesity, unspecified; Z68.36 Body mass index [BMI] 36.0-36.9, adult; K21.00 Gastro-esophageal reflux disease with esophagitis, without bleeding; R20.2 Paresthesia of skin
CPT/HCPCS: 36415; 70450; 70496; 70498; 70543; 70553; 71045; 76705; 80048; 80053; 80061; 80076; 80307; 81240; 81241; 82274; 82607; 82746; 82962; 83036; 83690; 83735; 84100; 84425; 84443; 84484; 85014; 85018; 85025; 85300; 85301; 85302; 85303; 85610; 85652; 85730; 86038; 86140; 86146; 86147; 86225; 86235; 86703; 87811; 92523; 92610; 93005; 94762; 97161; 97166; 97802; 99284; A9575; J7030; Q9967; A4216; J2930

== ENCOUNTER 2021-12-05 09:16 | Inpatient (IN) | payer SELFPAY ==
[2021-12-05] VITALS (15 sets, daily range): BP systolic 118–214; BP diastolic 70–140; PULSE 80–106; RESP 14–20; TEMP 36.3–36.9; O2SAT 98–100; BMI 33.9; BMI 31.3
--- NOTE | 2021-12-05 09:26 | RAD_ITS ---
STUDY: X-RAY CHEST REASON FOR EXAM: Male, 26 years old. CHEST PAIN TECHNIQUE: Single AP portable upright view of the chest. COMPARISON: Portable AP upright chest x-ray 07/30/2021 FINDINGS: The lungs are clear and expanded. There is no demonstrated pleural abnormality. There is borderline to mild cardiac enlargement. Normal mediastinum and bharath. Normal visualized pulmonary arteries. Normal visualized aortic arch and descending thoracic aorta. Normal visualized thoracic spine. Normal visualized ribs, clavicles, and shoulders. There is no demonstrated abnormality of the visualized soft tissue structures of the upper abdomen. RAD/Chest 1 View (Portable) IMPRESSION: Borderline to mild cardiac enlargement. No pneumonic infiltrate or CHF. Electronically Signed: Wai Pedersen MD at 10:20 EDT ,
--- NOTE | 2021-12-05 09:26 | EKG12_ITS ---
Test Reason : SYNCOPE Blood Pressure : / mmHG Vent. Rate : 107 BPM Atrial Rate : 107 BPM P-R Int : 146 ms QRS Dur : 092 ms QT Int : 384 ms P-R-T Axes : 040 -01 161 degrees QTc Int : [address] & T wave abnormality, consider lateral ischemia Abnormal ECG Confirmed by SHABBIR HAYS, SYL ([id number]), editor newspaper JARAD ESTRADA ([id number]) on 12/07/2021 1:03:56 PM Referred By: SILVERIO Confirmed By:SYL SHEA MD
[2021-12-05 09:32] LABS: Absolute Neutrophil Count 7.3 X10^3/uL (2.0-7.7); Hematocrit 44.5 % (40-54); Hemoglobin 15.3 g/dL (13.0-16.5); Lymphocyte % 18.3 % (19-41); Mean Corp Hgb Conc 34.4 g/dL (32-36); Mean Corpuscular Hgb 30.8 pg (27.0-32.0); Mean Corpuscular Volume 89.5 fL (80-94); Mean Platelet Vol. 12.3 fl (6.2-12.0); Monocyte# 0.92 X10^3/uL; Monocyte% 8.9 % (0-10); NRBC Flagged by Analyzer 0 % (0-5); Neutrophil # 7.33 X10^3/uL (2.7-7.7); Neutrophil % 70.5 % (47-70); Platelet Count 256 K/mm3 (150-450); RBC Distribution Width CV 13.5 % (11.6-14.6); RBC Distribution Width SD 44.1 fl (35.1-43.9); Red Blood Count 4.97 M/mm3 (4.6-6.2); White Blood Count 10.4 K/mm3 (4.4-11.0)
--- NOTE | 2021-12-05 09:32 | CT_ITS ---
STUDY: CT BRAIN WITHOUT CONTRAST REASON FOR EXAM: Male, 26 years old. Headache RADIATION DOSAGE (If Supplied By Facility): CTDIvol = ( 44.99 ) mGy, DLP = ( 812.98 ) mGycm TECHNIQUE: Transaxial CT imaging of the brain was performed without administration of intravenous contrast material. Individualized dose optimization techniques were used for this CT. COMPARISON: MRI brain 07/30/2021 FINDINGS: Normal soft tissue structures. Normal calvarium. Normal size ventricles and extra-axial spaces for the patient''s age. There are areas of decreased attenuation within the white matter tracts of the bilateral parieto-occipital watershed region, consistent with microvascular disease changes versus other white matter disease. Normal basal ganglia and thalami. Normal brainstem. Normal cerebellum. There is no intracranial hemorrhage. There are no findings of an acute ischemic infarction. Normal visualized paranasal sinuses. CT/Brain/Head without Contrast IMPRESSION: Stable chronic ill-defined hypodensities of the bilateral parietal-occipital white matter. In view of the patient''s age, this may reflect a demyelinating process rather than microvascular ischemic change. Electronically Signed: Wai Pedersen MD at 10:16 EDT ,
--- NOTE | 2021-12-05 09:32 | EDS_ITS ---
HPI History of Present Illness Chief Complaint: Syncope Narrative Narrative: 26-year-old male with history of hypertension, CVA, GI bleed presenting with an episode of syncope. 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 He believes he fell forward and hit his head. He believes he was unconscious for about 15 minutes. He does not have any lacerations or abrasions. He complains of headache which is fairly diffuse. Patient unsure if he is on any blood thinners. Patient states that he is taking blood pressure medication for his hypertension but cannot recall what it is. He states are still pills in the bottle. Patient woke up after his episode of syncope with some chest pressure which is retrosternal and nonradiating. He states his pain is going down in his chest. Patient does state that occasionally he drinks an energy drink (rockstar) or jet awake for energy. [facility] Medical History Bipolar 1 disorder Bleach ingestion GERD (gastroesophageal reflux disease) Hypertension Irritable bowel syndrome (IBS) Overdose PUD (peptic ulcer disease) Stage 3b chronic kidney disease (CKD) Suicide gesture Tobacco abuse Home Medications sucralfate 1 gram tablet 1 g PO 1HR_ACHS #120 tabs 05/19/21 [Rx Last Taken Unknown] aripiprazole 15 mg tablet (Abilify) 15 mg PO BID mood stabilizer 07/30/21 [History Last Taken 07/30/21] clonazepam 1 mg tablet (Klonopin) 1 mg PO DAILY mood stabilizer 07/30/21 [Hi story Last Taken 07/29/21] clonazepam 1 mg tablet (Klonopin) 3 mg PO QHS mood stabilizer 07/30/21 [History Last Taken 07/29/21] levetiracetam 250 mg tablet (Keppra) 250 mg PO DAILY tremors 07/30/21 [History Last Taken 07/30/21] levetiracetam 500 mg tablet (Keppra) 500 mg PO QHS tremors 07/30/21 [History Last Taken 07/29/21] omeprazole 40 mg capsule,delayed release 40 mg PO DAILY gerd 07/30/21 [History Last Taken 07/30/21] prazosin 5 mg capsule 5 mg PO QHS blood pressure/ anxiety 07/30/21 [History Last Taken 07/29/21] trazodone 100 mg tablet 100 mg PO QHS insomnia 07/30/21 [History Last Taken 0 07/29/21] Allergy/AdvReac Type Severity Reaction Status Date / Time No Known Allergies Allergy Verified 07/30/21 06:49 Family History Mother Diabetes Hypertension HLD (hyperlipidemia) Bipolar disorder Father Hypertension HLD (hyperlipidemia) Bipolar disorder Diabetes Surgical History H/O left knee surgery Social History household members: none Smoking Status: Current every day smoker tobacco type: e-cigarettes Smokeless tobacco user: other alcohol intake: current alcohol intake frequency: a few times a week substance use type: does not use EXAM Physical Exam Const Vital Signs: 12/05/21 09:16 12/05/21 09:19 12/05/21 09:23 Temperature 97.3 F L Temperature Source Temporal Pulse Rate 106 H Respiratory Rate 18 Respiratory Effort Normal Normal Respiratory Pattern Normal Blood Pressure 214/140 H Blood Pressure Mean 164 Pulse Ox 99 Oxygen Delivery Method Room Air 12/05/21 09:31 12/05/21 09:39 12/05/21 09:43 Temperature Temperature Source Pulse Rate 100 96 Respiratory Rate 18 20 H Respiratory Effort Respiratory Pattern Blood Pressure 212/127 H 191/110 H Blood Pressure Mean 155 137 Pulse Ox 100 100 Oxygen Delivery Method Room Air Room Air Room Air 12/05/21 10:16 12/05/21 11:00 Temperature Temperature Source Pulse Rate 89 89 Respiratory Rate 16 14 Respiratory Effort Respiratory Pattern Blood Pressure 197/133 H 178/121 H Blood Pressure Mean 154 140 Pulse Ox 100 100 Oxygen Delivery Method Room Air Room Air Positive well nourished General Appearance ED: NAD; Negative for pallor HEENT Reports moist mucous membranes and dry mucous membranes Mouth ED: Yes dry mucous membranes Mouth: dry mucous membranes Eyes PERRL and EOMs intact bilaterally Neck no lymphadenopathy Chest Wall inspection of chest normal and palpation of chest normal Resp normal respiratory effort and clear to auscultation bilaterally Auscultation: Negative for rales, rhonchi or wheezes Cardio regular rhythm Rate: tachycardic GI normal to inspection, nondistended, normoactive bowel sounds Back/Spine no CVA tenderness Neuro oriented x3, CN's II-XII intact bilaterally and no sensory deficits noted Motor Exam: strength 5/5 throughout Psych mental status grossly normal Skin no rashes or lesions noted and no wounds General Skin Exam: Negative for jaundice or pallor MDM MDM MDM Narrative Medical decision making narrative: Patient presenting after an episode of syncope. He states he was well prior to the event. He estimates maybe he was unconscious for 10 minutes. He has no signs of head trauma but does complain of a mild headache and lightheadedness. Patient does state that he is taking antihypertensives but does not know the names of the medications. He does states he has a little bit of chest pressure which is improving. This started after his syncopal episode and not before. He does report that he fell forward. He is not complaining of shortness of breath. I obtained an EKG on arrival which shows a normal sinus rhythm with a ventricular rate of 107 bpm without significant interval change from previous EKG performed 31 July 2021. Chest x-ray my interpretation shows no acute cardiopulmonary process. The radiologist does agree. CT brain was ordered and interpreted as stable. CBC shows no leukocytosis. Hemoglobin hematocrit are within normal limits. Platelets normal. Creatinine is elevated at 2.69 and in July this is 1.57. Potassium is low at 2.4. I did obtain a magnesium level which is low at 1.5. Magnesium 4 g was ordered IV. High-sensitivity troponin came back at 164. On reevaluation patient is feeling improved although he still has mild headache. He is drinking water and appears comfortable. I discussed his lab findings with him. I did look on. Clinisync and only found [address] [facility] for occupational therapy. It does not appear that there are any medications on his med list other antihypertensives. He does again state that he is taking them. Patient required 20 mg of labetalol, 10 mg of hydralazine for his elevated blood pressures which were noted on arrival. Initial blood pressure was 214/140. On reevaluation he is 178/121. I suspect that he is likely medically noncompliant and also admits to drinking energy drinks and taking caffeine supplements. I feel this may be why he had a syncopal episode today. Patient received aspirin prior to arrival via EMS and it was reported he took 324 mg of aspirin. Patient discussed with hospitalist for admission. The hospitalist did request 0.2 mg of clonidine which was given to the patient. Patient transferred to the floor in stable condition. Impression: 1. Syncope 2. Chest pain 3. Elevated troponin 4. Acute kidney injury 5. Hypomagnesemia 6. Hypokalemia 7. Hypertensive emergency 8. Headache Lab Data Labs: Laboratory Results - last 24 hr 12/05/21 12/05/21 12/05/21 09:05 09:05 09:26 WBC 10.4 RBC 4.97 Hgb 15.3 Hct 44.5 MCV 89.5 MCH 30.8 MCHC 34.4 RDW Std Deviation 44.1 H RDW Coeff of [place] 13.5 Plt Count 256 MPV 12.3 H Immature Gran % (Auto) 0.300 Neut % (Auto) 70.5 H Lymph % (Auto) 18.3 L [place] % (Auto) 8.9 Eos % (Auto) 1.0 Baso % (Auto) 1.0 Absolute Neuts (auto) 7.3 Absolute Lymphs (auto) 1.90 Nucleated RBC % 0 Sodium 138 Potassium 2.4 L* Chloride 101 Carbon Dioxide 25.0 Anion Gap 12 BUN 17 Creatinine 2.69 H Estim Creat Clear Calc 40.88 Est GFR (MDRD) Af Amer 36 L Est GFR (MDRD) Non-Af 30 L BUN/Creatinine Ratio 6.3 L Glucose 103 Calcium 9.2 Magnesium 1.5 L Troponin I High Sens 164 H* Radiography Diagnostic Testing: Clinical Impression(s) from Imaging Studies Chest X-Ray 12/05/21 09:26 IMPRESSION: Borderline to mild cardiac enlargement. No pneumonic infiltrate or CHF. Electronically Signed: Wai Pedersen MD at 10:20 EDT , Brain CT 12/05/21 09:32 IMPRESSION: Stable chronic ill-defined hypodensities of the bilateral parietal-occipital white matter. In view of the patient''s age, this may reflect a demyelinating process rather than microvascular ischemic change. Electronically Signed: Wai Pedersen MD at 10:16 EDT , Discharge Plan Triage Chief Complaint: Syncope ED Provider: Osbaldo Go Dx/Rx/DC Orders Prescriptions: No Action sucralfate 1 gram Tablet 1 g PO 1HR_ACHS Qty: 120 0RF levetiracetam [Keppra] 500 mg Tablet 500 mg PO QHS clonazepam [Klonopin] 1 mg Tablet 1 mg PO DAILY clonazepam [Klonopin] 1 mg Tablet 3 mg PO QHS prazosin 5 mg Capsule 5 mg PO QHS Rx Instructions: DOSE UNKNOWN levetiracetam [Keppra] 250 mg Tablet 250 mg PO DAILY trazodone 100 mg Tablet 100 mg PO QHS aripiprazole [Abilify] 15 mg Tablet 15 mg PO BID omeprazole 40 mg Capsule,Delayed Release(Dr/Ec) 40 mg PO DAILY Primary Care Provider: Care Physician,No Primary Referrals: Care Physician,No Primary [Primary Care Provider] -
[2021-12-05] MEDS: Labetalol (Prefilled) 20 MG/4 ML IV (09:39)
[2021-12-05 10:12] LABS: Anion Gap 12 (5-15); BUN 17 mg/dL (7-18); BUN/Creat Ratio 6.3 RATIO (10-20); Calcium,Total 9.2 mg/dL (8.5-10.1); Chloride 101 mmol/L (98-107); Creatinine, Serum 2.69 mg/dL (0.70-1.30); EST Glomerular Filtration Rate 30 mL/min (>60); Est Glom Filt Rate - Afr Amer 36 mL/min (>60); Estimated Creatinine Clearance 40.88 ml/min; Glucose 103 mg/dL (74-106); Potassium 2.4 mmol/L (3.5-5.1); Sodium Level 138 mmol/L (136-145); Troponin-I HS (w/2H Reflex) 164 pg/mL (3.0-78.0)
[2021-12-05] MEDS: hydrALAZINE 20 MG/ML Vial 10 MG IV (10:19)
[2021-12-05 10:36] LABS: Magnesium 1.5 mg/dL (1.6-2.6)
--- NOTE | 2021-12-05 11:20 | HP.PCM.HOS_ITS ---
HPI - General General Date of Admission: 12/05/21 Date of Service: 12/05/21 Chief Complaint: syncope HPI Narrative EDU WILCOX, is a 26 M with a PMH as outlined who presents via the ED on 12/05/2021 with a complaint of syncope. HE has a PMH of hypertension and CVA. 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 He thinks he may have been out for about 10 mins; he hit his head. HE woke up and started having chest pressure. Chest pressure was retrosternal and didnt radiate anywhere. HE denied any dizziness, palpitations, nausea, vomiting or diarrhea. He has a history of high blood pressure and says he cannot recall when he last took his medications. IT doesnt appear that he has been very compliant, as he states he still has some pills in his bottle. Review of systems is otherwise negative. Vitals in the ED were BP of 178/121, PA of 89, RR of 14 and she was saturating at 100% on room air. CBC was unremarkable and BMP showed sodium of 138 and potassium of 2.4, with Cr of 2.69. Magnesium was 1.5 and troponin is 164. CT of the brain showed a stable chronic ill defined hypodensities in the bilateral parietal occipital white matter, concerning for demyelinating changes in light of his age. CXR showed borderline cardiomegaly. He is being admitted to be managed for hypertensive emergency. [facility] Medical History Bipolar 1 disorder Bleach ingestion GERD (gastroesophageal reflux disease) Hypertension Irritable bowel syndrome (IBS) Overdose PUD (peptic ulcer disease) Stage 3b chronic kidney disease (CKD) Suicide gesture Tobacco abuse Home Medications aripiprazole 15 mg tablet (Abilify) 15 mg PO BID mood stabilizer 07/30/21 [History Last Taken 07/30/21] clonazepam 1 mg tablet (Klonopin) 1 mg PO DAILY mood stabilizer 07/30/21 [History Last Taken 07/29/21] clonazepam 1 mg tablet (Klonopin) 3 mg PO QHS mood stabilizer 07/30/21 [History Last Taken 07/29/21] levetiracetam 250 mg tablet (Keppra) 250 mg PO DAILY tremors 07/30/21 [History Last Taken 07/30/21] levetiracetam 500 mg tablet (Keppra) 500 mg PO QHS tremors 07/30/21 [History Last Taken 07/29/21] omeprazole 40 mg capsule,delayed release 40 mg PO DAILY gerd 07/30/21 [History Last Taken 07/30/21] prazosin 5 mg capsule 5 mg PO QHS blood pressure/ anxiety 07/30/21 [History Last Taken 07/29/21] trazodone 100 mg tablet 100 mg PO QHS insomnia 07/30/21 [History Last Taken 07/29/21] sucralfate 1 gram tablet 1 g PO 1HR_ACHS Check with primary doctor 12/05/21 [History Last Taken Unknown] Allergy/AdvReac Type Severity Reaction Status Date / Time No Known Allergies Allergy Verified 07/30/21 06:49 Family History Mother Diabetes Hypertension HLD (hyperlipidemia) Bipolar disorder Father Hypertension HLD (hyperlipidemia) Bipolar disorder Diabetes Surgical History H/O left knee surgery Social History household members: none Smoking Status: Current every day smoker tobacco type: e-cigarettes Smokeless tobacco user: other alcohol intake: current alcohol intake frequency: a few times a week substance use type: does not use ROS Review of Systems ROS Unobtainable: Denies due to encephalopathy Constitutional Constitutional: Denies anorexia, chills, fatigue, fever(s), malaise or weakness Eyes Eyes: Denies change in vision ENT HEENT: Denies dysphagia, headache(s) or sinus pressure Cardiovascular Cardiovascular: Reports lightheadedness and syncope; Denies chest pain, dyspnea on exertion, edema, orthopnea, palpitations, paroxysmal nocturnal dyspnea or rapid heart rate Respiratory/Chest Respiratory/Chest: Denies cough, dyspnea, productive cough, shortness of breath at rest or shortness of breath with exertion Gastrointestinal Gastrointestinal: Denies abdominal pain, constipation, nausea or vomiting Genitourinary Genitourinary: Denies burning urination or dysuria Musculoskeletal Musculoskeletal: Denies arthralgias Neurologic Neurologic: Reports headache(s) and syncope; Denies confusion, dizziness, numbness, paresthesias or seizures Psychiatric Psychiatric: Denies anxiety or depression Endocrine Endocrinology: Denies change in body appearance Hematologic/Lymphatic Hematologic/Lymphatic: Denies anemia or easy bleeding Vital Signs Vital Signs Vital Signs: 12/05/21 09:16 12/05/21 09:19 12/05/21 09:23 Temperature 97.3 F L Temperature Source Temporal Pulse Rate 106 H Respiratory Rate 18 Respiratory Effort Normal Normal Respiratory Pattern Normal Blood Pressure 214/140 H Blood Pressure Mean 164 Pulse Ox 99 Oxygen Delivery Method Room Air 12/05/21 09:31 12/05/21 09:39 12/05/21 09:43 Temperature Temperature Source Pulse Rate 100 96 Respiratory Rate 18 20 H Respiratory Effort Respiratory Pattern Blood Pressure 212/127 H 191/110 H Blood Pressure Mean 155 137 Pulse Ox 100 100 Oxygen Delivery Method Room Air Room Air Room Air 12/05/21 10:16 12/05/21 11:00 Temperature Temperature Source Pulse Rate 89 89 Respiratory Rate 16 14 Respiratory Effort Respiratory Pattern Blood Pressure 197/133 H 178/121 H Blood Pressure Mean 154 140 Pulse Ox 100 100 Oxygen Delivery Method Room Air Room Air Weight Weight: 229 lb 8.019 oz Body Mass Index (BMI) 33.9 Physical Exam Const alert, oriented x3 and no apparent distress General Appearance: cooperative HEENT normocephalic, head/scalp atraumatic, hearing grossly normal bilaterally and moist oral mucous membranes Mouth: oral and palatal mucosa normal Eyes PERRL, EOMs intact bilaterally and conjunctivae normal Neck no lymphadenopathy and supple Resp normal respiratory effort, no retractions, no use of accessory muscles and clear to auscultation bilaterally Cardio regular rate, regular rhythm, S1 normal heart sound, S2 normal heart sound and no murmurs GI normal to inspection, nondistended, normoactive bowel sounds, soft to palpation, non-tender and non-distended Extremity normal to inspection, full ROM and no clubbing, cyanosis or edema Neuro oriented x3, CN's II-XII intact bilaterally, moves all extremities and no focal motor deficits Sensorium / Orientation: awake and alert Motor Exam: strength 5/5 throughout Psych affect normal Results Lab / Micro Data Result Diagrams: 12/05/21 09:05 12/05/21 09:05 Labs: Laboratory Results - last 24 hr 12/05/21 09:05: WBC 10.4, RBC 4.97, Hgb 15.3, Hct 44.5, MCV 89.5, MCH 30.8, MCHC 34.4, RDW Std Deviation 44.1 H, RDW Coeff of [place] 13.5, Plt Count 256, MPV 12.3 H , Immature Gran % (Auto) 0.300, Neut % (Auto) 70.5 H, Lymph % (Auto) 18.3 L, [place] % (Auto) 8.9, Eos % (Auto) 1.0, Baso % (Auto) 1.0, Absolute Neuts (auto) 7.3, Absolute Lymphs (auto) 1.90, Nucleated RBC % 0 12/05/21 09:05: Sodium 138, Potassium 2.4 L*, Chloride 101, Carbon Dioxide 25.0, Anion Gap 12, BUN 17, Creatinine 2.69 H, Estim Creat Clear Calc 40.88, Est GFR (MDRD) Af Amer 36 L, Est GFR (MDRD) Non-Af 30 L, BUN/Creatinine Ratio 6.3 L, Glucose 103, Calcium 9.2, Troponin I High Sens 164 H* 12/05/21 09:26: Magnesium 1.5 L Radiology Impression Chest X-Ray 12/05/21 09:26 IMPRESSION: Borderline to mild cardiac enlargement. No pneumonic infiltrate or CHF. Electronically Signed: Wai Pedersen MD at 10:20 EDT , Brain CT 12/05/21 09:32 IMPRESSION: Stable chronic ill-defined hypodensities of the bilateral parietal-occipital white matter. In view of the patient''s age, this may reflect a demyelinating process rather than microvascular ischemic change. Electronically Signed: Wai Pedersen MD at 10:16 EDT , Assessment & Plan Assessment/Plan (1) Hypertensive emergency: (2) Chest pain: (3) Acute hypokalemia: PLAN: Plan #Hypertensive emergency * admit to PCU * BP was up at 189/123 at time of review. Chest pain had resolved * he says he is on prazosin. He doesnt see a PCP or business travel consultant, and claims to be compliant with his meds * review of the EMR showed he was to be on lisinopril and HCTZ from previous notes; he denies knowledge of this * patient is hypokalemic, and this seems to be chronic. This is therefore concerning for hyperaldosteronism * troponin was elevated at 184; will cycle. this is likely due to hypertensive emergency * 2D echo in May 2021 showed EF of 60%,l with normal LV systolic function and moderate concentric LV hypertrophy, with impaired relaxation of LV and RVSP of 24mmHg. * start on amlodipine 10mg daily, metoprolol 25mg bid and lisinopril 40mg daily * given clonidine 0.2 mg x 1 in ED * IV hydralazine prn * will benefit from renal artery duplex as well to assess for renal artery stenosis in light of hypertensive emergency and young age * if BP is still not well controlled, will benefit from nephrology evaluation * #Elevated troponin * EKG showed t wave inversions in lateral leads * 2D echo from May 2021 as above * hold off on getting a new echo * I think this is likely due to hypertensive emergency and also likely decreased clearance from Julianna on CKD stage II. * discussed with Dr Hardwick; will get 2D echo, but hold off on any an ticoagulation,a nd to follow with cardiology on outpatient basis for Coronary angiogram to detect any abnormalities. * * #Hypokalemia: * K is 2.4. It appears this extends back to May 2021. * considering his hypertensive emergency and hypokalemia, this is concerning for hyperaldosteronism * will get renniin/aldosterone ratio checked once potassium is corrected * correct potassium aggressively * will benefit from endocrinology referral on outpatient basis due to concern for hyperaldosteronism * CT of the abdomen was negative for any evidence of adrenal mass. * #JULIANNA on CKD stage II: * Cr is 2.69, with baseline being ~ 1.5. will monitor and trend. * Get renal USG. also hydrate as he received IV cotnrast for the CTA chest #?History of CVA: * patient tells me he has a history of stroke. From EMR discharge summary from 07/31/2021, stroke was ruled out and there was concern for a possible demyel inating process. * on keppra #History of bipolar disorder: on abilify and klonopin DVT prophylaxis: lovenox Code status: full code * Patient told me that he did not want to be resuscitated and wanted to be DNR CCA with no intubation. In light of his very young age, I extensively counseled patient to be sure that he was fully aware and understood what DNR CCA meant. I clarified that this would mean he would not have CPR or intubation if needed. Again I counseled patient that in light of his relative youth, he had a good chance of being resuscitated successfully if he needed it. Patient initially insisted that he still wanted to be DNR CCA with no intubation as he did not have any family and only had a PET and lived in a small apartment by himself and so did not think that he would have anything to live for. After asking patient to explain what he thought DNR CCA meant to be sure that he understood it, patient subsequently stated that he would want to be resuscitated and he had changed his mind. CODE STATUS is therefore full code. * Total [id number] time 18 minutes. Charges/Coding Visit Charges Inpatient E&M: 15774 Init Hosp L3 Procedures Hospitalists Procedures: 36501 Advncd Care Plan 30 Min
[2021-12-05] MEDS: Magnesium Sulfate 4gm/100mL 4 GM/100 ML IV.SOLN. IV (11:26)
--- NOTE | 2021-12-05 11:26 | NURSING ---
DR MOSES FOR DR MONACO
--- NOTE | 2021-12-05 11:28 | NURSING ---
PCU [facility] HYPERTENSIVE EMERGENCY, ELEVATED TROPONIN, SYNCOPE
[2021-12-05 11:29] LABS: Reflex Troponin-HS? (from REC) Y
[2021-12-05] MEDS: cloNIDine HCl 0.2 MG Tablet PO (11:44)
--- NOTE | 2021-12-05 11:55 | CT_ITS ---
INDICATION: syncope EXAMINATION: CTA CHEST, ABDOMEN AND PELVIS WITH CONTRAST - TECHNIQUE: A CTA of the chest, abdomen, and pelvis is obtained with sagittal and coronal reconstructed MIP views. Three-dimensional surface rendered sequence of the thoracic and abdominal aorta was obtained. A radiation dose optimization technique was used for this scan. 100 mL of Isovue-370. Oral contrast: None. COMPARISON: None. FINDINGS: CT CHEST: THORACIC AORTA: No atheromatous disease, no aneurysmal changes or dissection. ABDOMINAL AORTA: No aneurysm or dissection. No significant atheromatous disease. The iliac arteries are unremarkable. LUNGS: There are few groundglass opacities within the right lower lobe. No effusions or pneumothorax. MEDIASTINUM: The thyroid gland is normal. No mediastinal or hilar adenopathy. HEART: Heart is normal size. No pericardial effusion. No CAD. CT ABDOMEN AND PELVIS: LIVER: The liver is diffusely low in attenuation consistent with fatty infiltration. GALLBLADDER: The CBD is normal. Normal gallbladder. SPLEEN: Normal. PANCREAS: No masses or inflammation. ADRENAL GLANDS: Normal. KIDNEYS AND URETERS: The kidneys both enhance appropriately. There are normal size and shape. No hydronephrosis or nephrolithiasis. No renal masses or cysts. STOMACH: Normal. SMALL BOWEL: No abnormal distention of the small bowel. MESENTERY: No mesenteric inflammation. No ascites. COLON: There is circumferential wall thickening of the sigmoid colon. There are scattered diverticula arising from the colon. There is intramural fat within the ascending and transverse colon suggestive of prior inflammation. APPENDIX: The appendix is visualized and normal. IVC: Normal. RETROPERITONEUM: No retroperitoneal lymphadenopathy. PELVIC STRUCTURES: Normal bladder. SOFT TISSUES ABDOMEN: The anterior abdominal wall is normal. SOFT TISSUE CHEST: The extrathoracic soft tissues are normal. BONES: There are mild degenerative changes of the lower thoracic and lumbar spine. CT/CTA Chst, Abd, Pel W and/or WO IMPRESSION: Circumferential wall thickening of the sigmoid colon may be secondary to underlying colitis and/or a neoplastic process. Colonic diverticulosis. Fatty infiltration of the liver. Scattered groundglass opacities within the right lower lobe, a nonspecific finding may be secondary to edema and/or an infectious process. Electronically Signed: Jess Rao MD at 15:01 EDT ,
[2021-12-05 12:01] LABS: Troponin-I HS 163 pg/mL (3.0-78.0)
[2021-12-05] MEDS: 0.9% Normal Saline 1,000 ML 75 ML IV (13:48)
[2021-12-05] MEDS: Metoprolol Tartrate 25 MG Tablet PO ×2 (13:49→21:46)
[2021-12-05] MEDS: Lisinopril 40 MG Tablet PO (13:49)
[2021-12-05] MEDS: Potassium Chloride 10mEq/100mL 10 MEQ/100 ML IV.SOLN. 100 MEQ IV BOLUS ×4 (15:24→18:54)
[2021-12-05 15:25] LABS: Troponin-I HS 152 pg/mL (3.0-78.0)
[2021-12-05] MEDS: Sucralfate 1 GM Tablet PO ×2 (16:55→21:42)
[2021-12-05] MEDS: ARIPiprazole 5 MG Tablet 15 MG PO (21:41)
[2021-12-05] MEDS: traZODone 100 MG Tablet PO (21:42)
[2021-12-05] MEDS: levETIRAcetam 500 MG Tablet PO (21:43)
[2021-12-05] MEDS: clonazePAM 1 MG Tablet 3 MG PO (21:44)
[2021-12-05] MEDS: Doxazosin 4 MG Tablet PO (21:53)
[2021-12-06] VITALS (11 sets, daily range): BP systolic 100–149; BP diastolic 59–98; PULSE 75–97; RESP 16–17; TEMP 36.4–36.9; O2SAT 95–100
--- NOTE | 2021-12-06 05:55 | ECHOD_ITS ---
Reason For Study: HTN Procedure This was a 2D Doppler, Color Flow transthoracic echocardiogram. Exam performed portable in patient room. Left Ventricle Normal LV size. Moderate concentric left ventricular hypertrophy. Left ventricular systolic function is normal. The estimated ejection fraction is 60 %. No regional wall motion abnormalities noted. Right Ventricle Normal RV size. Normal systolic function. Atria The left atrium is moderately enlarged. Normal right atrium. Mitral Valve Normal mitral valve. Tricuspid Valve Normal tricuspid valve. Aortic Valve Normal aortic valve. Trisinus/trileaflet aortic valve. Pulmonic Valve Normal pulmonic valve. Great Vessels Normal aortic root. The pulmonary artery is normal size. Normal inferior vena cava. Pericardium/Pleural No pericardial effusion. MMode/2D Measurements & Calculations LVIDd: 5.2 cm IVSd: 1.4 cm Ao root diam: 3.0 cm LVIDs: 4.2 cm LVPWd: 1.6 cm RVDd: 3.6 cm FS: 19.2 % LAV(MOD-bp): 116.2 ml LVAd ap4: 44.1 cm2 SV(MOD-sp4): 90.4 ml LAV(MOD-bp) Indexed: 54.9 ml/m2 LVLd ap4: 9.2 cm LAV(MOD-sp2): 94.3 ml EDV(MOD-sp4): 171.6 ml LAV(MOD-sp4): 117.0 ml EDV(sp4-el): 179.4 ml LVAs ap4: 27.2 cm2 LVLs ap4: 7.7 cm ESV(MOD-sp4): 81.1 ml ESV(sp4-el): 81.7 ml EF(MOD-sp4): 52.7 % EF(sp4-el): 54.4 % SV(sp4-el): 97.7 ml LA A4 area: 28.4 cm2 LA dimension(2D): 4.4 cm RA A4 area: 18.5 cm2 Doppler Measurements & Calculations MV E max jovanny: 67.1 cm/sec Lat Peak E' Jovanny: 10.0 cm/sec Med Peak E' Jovanny: 8.3 cm/sec MV A max jovanny: 33.1 cm/sec E/E' lat: 6.7 E/E' med: 8.1 MV E/A: 2.0 Ao V2 max: 145.2 cm/sec LV V1 max: 105.4 cm/sec PA V2 max: 89.6 cm/sec Ao max P.4 mmHg LV V1 max P.5 mmHg Ao V2 mean: 107.6 cm/sec LV V1 mean P.3 mmHg Ao mean P.2 mmHg LV V1 mean: 70.8 cm/sec Ao V2 VTI: 22.4 cm LV V1 VTI: 17.8 cm TR max jovanny: 321.2 cm/sec TR max P.3 mmHg ECHO/Echo Complete Interpretation Summary Normal LV size. Left ventricular systolic function is normal. The estimated ejection fraction is 60 %. The left atrium is moderately enlarged. Moderate concentric left ventricular hypertrophy. Ordering Physician: Vibha Goldsmith Performed By: Laurita Acuna RCS
[2021-12-06] MEDS: Sucralfate 1 GM Tablet PO ×4 (06:08→21:49)
[2021-12-06 06:24] LABS: Absolute Lymphocyte Count 0.95 X10^3/uL (0.83-4.51); Absolute Neutrophil Count 4.6 X10^3/uL (2.0-7.7); Basophil# 0.05 X10^3/uL; Basophil% 0.8 % (0-1); Eosinophil# 0.25 X10^3/uL; Eosinophils% 3.9 % (0-5); Hemoglobin 13.1 g/dL (13.0-16.5); Lymphocyte # 0.95 X10^3/ul (0.83-4.51); Lymphocyte % 14.7 % (19-41); Mean Corp Hgb Conc 32.8 g/dL (32-36); Mean Corpuscular Volume 91.7 fL (80-94); Mean Platelet Vol. 12.4 fl (6.2-12.0); Monocyte# 0.59 X10^3/uL; Monocyte% 9.1 % (0-10); NRBC Flagged by Analyzer 0 % (0-5); Neutrophil # 4.62 X10^3/uL (2.7-7.7); Neutrophil % 71.2 % (47-70); Platelet Count 211 K/mm3 (150-450); RBC Distribution Width CV 13.8 % (11.6-14.6); RBC Distribution Width SD 46.4 fl (35.1-43.9); Red Blood Count 4.36 M/mm3 (4.6-6.2); White Blood Count 6.5 K/mm3 (4.4-11.0)
[2021-12-06 07:02] LABS: Anion Gap 7 (5-15); BUN 23 mg/dL (7-18); BUN/Creat Ratio 8.8 RATIO (10-20); Calcium,Total 8.4 mg/dL (8.5-10.1); Chloride 100 mmol/L (98-107); Creatinine, Serum 2.61 mg/dL (0.70-1.30); EST Glomerular Filtration Rate 31 mL/min (>60); Est Glom Filt Rate - Afr Amer 38 mL/min (>60); Estimated Creatinine Clearance 42.14 ml/min; Glucose 93 mg/dL (74-106); Magnesium 2.6 mg/dL (1.6-2.6); Potassium 2.7 mmol/L (3.5-5.1); Sodium Level 136 mmol/L (136-145); Thyroid Stim Hormone (TSH) 1.34 uIU/mL (0.358-3.74)
--- NOTE | 2021-12-06 09:18 | PN.HOSP_ITS ---
Subjective Subjective Feeling dizzy, worse when he stands up. Objective Data Objective Data Vital Signs: Vital Signs Temp Pulse Resp BP Pulse Ox O2 Del Method 36.4 C L 88 16 100/59 L 95 Room Air 12/06/21 04:35 12/06/21 06:59 12/06/21 04:35 12/06/21 04:35 12/06/21 04:35 12/06/21 04:35 Oxygen Delivery Method Room Air Weight: 96.3 kg Body Mass Index (BMI) 31.3 Intake & Output: Intake and Output for Last 24 Hours 12/04/21 12/05/21 12/06/21 23:59 23:59 23:59 Intake Total 1000 / 1000 1000 / 1000 Balance 1000 / 1000 1000 / 1000 Lab / Micro Data Result Diagrams: 12/06/21 05:40 12/06/21 05:40 Labs: Laboratory Results - last 24 hr 12/05/21 09:05: WBC 10.4, RBC 4.97, Hgb 15.3, Hct 44.5, MCV 89.5, MCH 30.8, MCHC 34.4, RDW Std Deviation 44.1 H, RDW Coeff of [place] 13.5, Plt Count 256, MPV 12.3 H , Immature Gran % (Auto) 0.300, Neut % (Auto) 70.5 H, Lymph % (Auto) 18.3 L, [place] % (Auto) 8.9, Eos % (Auto) 1.0, Baso % (Auto) 1.0, Absolute Neuts (auto) 7.3, Absolute Lymphs (auto) 1.90, Nucleated RBC % 0 12/05/21 09:05: Sodium 138, Potassium 2.4 L*, Chloride 101, Carbon Dioxide 25.0, Anion Gap 12, BUN 17, Creatinine 2.69 H, Estim Creat Clear Calc 40.88, Est GFR (MDRD) Af Amer 36 L, Est GFR (MDRD) Non-Af 30 L, BUN/Creatinine Ratio 6.3 L, Glucose 103, Calcium 9.2, Troponin I High Sens 164 H* 12/05/21 09:26: Magnesium 1.5 L 12/05/21 11:10: Troponin I High Sens 163 H* 12/05/21 14:50: Troponin I High Sens 152 H* 12/05/21 20:08: COVID-19 (CLAY) Not Detected 12/06/21 05:40: WBC 6.5, RBC 4.36 L, Hgb 13.1, Hct 40.0, MCV 91.7, MCH 30.0, MCHC 32.8, RDW Std Deviation 46.4 H, RDW Coeff of [place] 13.8, Plt Count 211, MPV 12.4 H, Immature Gran % (Auto) 0.300, Neut % (Auto) 71.2 H, Lymph % (Auto) 14.7 L, [place] % (Auto) 9.1, Eos % (Auto) 3.9, Baso % (Auto) 0.8, Absolute Neuts (auto) 4.6, Absolute Lymphs (auto) 0.95, Nucleated RBC % 0 12/06/21 05:40: Sodium 136, Potassium 2.7 L*, Chloride 100, Carbon Dioxide 29.0, Anion Gap 7, BUN 23 H, Creatinine 2.61 H, Estim Creat Clear Calc 42.14, Est GFR (MDRD) Af Amer 38 L, Est GFR (MDRD) Non-Af 31 L, BUN/Creatinine Ratio 8.8 L, Glucose 93, Calcium 8.4 L, Magnesium 2.6, TSH 1.34 Radiography Diagnostic Testing: Radiology Impression Chest X-Ray 12/05/21 09:26 IMPRESSION: Borderline to mild cardiac enlargement. No pneumonic infiltrate or CHF. Electronically Signed: Wai Pedersen MD at 10:20 EDT , Brain CT 12/05/21 09:32 IMPRESSION: Stable chronic ill-defined hypodensities of the bilateral parietal-occipital white matter. In view of the patient''s age, this may reflect a demyelinating process rather than microvascular ischemic change. Electronically Signed: Wai Pedersen MD at 10:16 EDT , Chest/Abdomen/Pelvis CTA 12/05/21 11:55 IMPRESSION: Circumferential wall thickening of the sigmoid colon may be secondary to underlying colitis and/or a neoplastic process. Colonic diverticulosis. Fatty infiltration of the liver. Scattered groundglass opacities within the right lower lobe, a nonspecific finding may be secondary to edema and/or an infectious process. Electronically Signed: Jess Rao MD at 15:01 EDT , Physical Exam Const alert and no apparent distress Resp normal respiratory effort, no retractions, no use of accessory muscles and clear to auscultation bilaterally Cardio regular rate, regular rhythm, S1 normal heart sound and S2 normal heart sound GI normal to inspection, nondistended, normoactive bowel sounds, soft to palpation, non-tender and non-distended Extremity normal to inspection Skin Skin Narrative: superficial abrasion on left upper scalp. Psych affect normal Assessment & Plan Assessment/Plan (1) Hypertensive emergency: (2) Chest pain: (3) Acute hypokalemia: PLAN: Plan 1. Hypertensive emergency * resolved * BP was up at 189/123 at time of review. Chest pain had resolved * he says he is on prazosin. He doesnt see a PCP or coordinator volunteer services, and claims to be compliant with his meds * review of the EMR showed he was to be on lisinopril and HCTZ from previous notes; he denies knowledge of this * patient is hypokalemic, and this seems to be chronic. This is therefore concerning for hyperaldosteronism * 2D echo in May 2021 showed EF of 60%,l with normal LV systolic function and moderate concentric LV hypertrophy, with impaired relaxation of LV and RVSP of 24mmHg. * start on amlodipine 10mg daily, metoprolol 25mg bid and lisinopril 40mg daily * CTA negative for SHARDA * consult nephrology 2. Elevated troponin * EKG showed t wave inversions in lateral leads * 2D echo pending * I think this is likely due to hypertensive emergency and also likely decreased clearance from Julinana on CKD stage II. * discussed with Dr Hardwick; will get 2D echo, but hold off on any anticoagulation,a nd to follow with cardiology on outpatient basis for Coronary angiogram to detect any abnormalities. 3. Hypokalemia: * K is 2.4. It appears this extends back to May 2021. * considering his hypertensive emergency and hypokalemia, this is concerning for hyperaldosteronism * will get renniin/aldosterone ratio checked once potassium is corrected * correct potassium aggressively * will benefit from endocrinology referral on outpatient basis due to concern for hyperaldosteronism * CT of the abdomen was negative for any evidence of adrenal mass. 4. JULIANNA on CKD stage II: * Cr is 2.69, with baseline being ~ 1.5. will monitor and trend. * also hydrate as he received IV cotnrast for the CTA chest * nephrology consult * cannot rule out hyperaldosteronism. 5. History of CVA: * patient tells me he has a history of stroke. From EMR discharge summary from 07/31/2021, stroke was ruled out and there was concern for a possible demyelinating process. * on keppra 6. History of bipolar disorder: on abilify and klonopin 7. Sigmoid wall thickening colitis v neoplastic process follow up with GI as outpt. DVT prophylaxis: lovenox Code status: full code * Patient told me that he did not want to be resuscitated and wanted to be DNR CCA with no intubation. In light of his very young age, I extensively counse led patient to be sure that he was fully aware and understood what DNR CCA meant. I clarified that this would mean he would not have CPR or intubation if needed. Again I counseled patient that in light of his relative youth, he had a good chance of being resuscitated successfully if he needed it. Patient initially insisted that he still wanted to be DNR CCA with no intubation as he did not have any family and only had a PET and lived in a small apartment by himself and so did not think that he would have anything to live for. After asking patient to explain what he thought DNR CCA meant to be sure that he understood it, patient subsequently stated that he would want to be resuscitated and he had changed his mind. CODE STATUS is therefore full code. Charges/Coding Visit Charges Inpatient E&M: 59766 Subs Hosp L3
[2021-12-06] MEDS: Potassium Chloride Oral Tablet 20 MEQ 40 MEQ PO (09:49)
[2021-12-06] MEDS: Metoprolol Tartrate 25 MG Tablet PO ×2 (09:50→21:50)
[2021-12-06] MEDS: ARIPiprazole 5 MG Tablet 15 MG PO ×2 (09:51→21:49)
[2021-12-06] MEDS: Pantoprazole Sodium 40 MG Tablet PO (09:51)
[2021-12-06] MEDS: levETIRAcetam 250 MG Tablet PO (09:51)
[2021-12-06] MEDS: Lisinopril 40 MG Tablet PO (09:51)
[2021-12-06] MEDS: Enoxaparin 40 MG/0.4 ML Syringe SC (09:52)
[2021-12-06] MEDS: Potassium Chloride 10mEq/100mL 10 MEQ/100 ML IV.SOLN. 100 MEQ IV BOLUS ×4 (09:52→13:17)
[2021-12-06] MEDS: clonazePAM 1 MG Tablet PO (10:22)
--- NOTE | 2021-12-06 10:30 | CASEMGMT ---
RN CM Face to Face with patient for initial transition planning/care coordination assessment. RN CM introduced self and role at [facility]. Patient lying in bed, alert and oriented. Patient willing to participate in assessment and is able to answer all questions appropriately. Care providers, pharmacy, and demographics verified. Patient wishes to discharge home, denies need for home health at this time. Patient states he has no further needs or concerns at this time. CM to follow for discharge planning needs that may arise. PCP: none, PCP list provided Specialists: none Preferred Pharmacy: [facility] at discharge Insurance: none Prescription Benefit: none Living Will/HPOA: none LNOK: none Living Arrangements: Patient lives alone in a 3rd floor apartment. Patient states he is independent and able to ambulate stairs. Transportation: self, hospital van at discharge DME/HHC: Patient denies DME or previous HHC. Patient provided self pay information packet including information for Medicaid application and [facility]. Disposition Plan: Patient to discharge home with follow-up plans in place. Jaylyn DARLING, RN, CM
--- NOTE | 2021-12-06 11:18 | CASEMGMT ---
Social Work Note MARGARITA DURAN updated this worker that pt is self-pay. SW provided MARGARITA DURAN with self-pay/financial packet who provided packet to pt. MARGARITA DURAN states pt works at [employer] and did not enroll in insurance so pt has missed enrollment period. Pt was encouraged to enroll in insurance the next time pt is able to do so. Pt stated understanding to MARGARITA DURAN. Jaylyn Handy FARMWORKER GRAIN, PEOPLESOFT CONSULTANT
--- NOTE | 2021-12-06 11:53 | CON.PCM.RE_ITS ---
Assessment & Plan Assessment/Plan (1) JULIANNA (acute kidney injury): (2) CKD (chronic kidney disease), stage III: (3) Accelerated essential hypertension: (4) Acute hypokalemia: PLAN: Plan Patient was admitted to the hospital after presenting to the emergency room via squad after he had passed out at home. He was noted to be significantly hypertensive. Patient was also found to have elevated troponin level, elevated creatinine and hypokalemia. Nephrology has been consulted. Patient does not follow with a procurement coordinator and has not been seen by primary care in some time. In reviewing past creatinine trends, patient has had elevated creatinine dating back to at least November 2020. Possible baseline creatinine around 1.3-1.5 mg/dL. Patient's creatinine was 2.69 mg/dL in the emergency room and today his creatinine is 2.61 mg/dL. Patient does have risk factors for CKD including uncontrolled hypertension as well as long-term NSAID use. At this time there is no acute indication for DOT COMPLIANCE COORDINATOR. Blood pressures have improved, he is on doxazosin 4 mg daily. He is also on lisinopril and we will hold that for now. Blood pressure now is 148/87. CT of A/P did not show any hydro, there are normal size and shape, no nephrolithiasis, renal masses or cysts. Patient was hypokalemic in the emergency room with potassium of 2.4. He has had noted low potassium trends since May 2021. There is concern for hyperaldosteronism. Patient is not taking any diuretics. Renin and aldosterone levels are pending. TSH is normal. Potassium trends are improving, currently receiving IV piggyback potassium. Endocrine consult in outpatient setting. CT of abdomen was negative for evidence of adrenal mass. At this time there is no acute indication for DOT COMPLIANCE COORDINATOR. Potassium is low and is being replaced, bicarb acceptable and patient appears to be near euvolemic on exam. Patient is nonoliguric. Discussed with patient importance of avoiding NSAIDs, smoking cessation and good blood pressure control to attenuate possible CKD progression. Reviewed importance of low sodium diet. We will obtain a UA and urine protein creatinine ratio. Reviewed urinalysis in May 2021 which showed urine protein 500, occult blood 50. If renal function improved tomorrow and bps stable possibly will start Aldactone. We will continue to monitor renal function. Also discussed with patient importance of nephrology care once discharged. Further orders forthcoming as hospitalization evolves, thank you for allowing us participate in the care of Mr. Ulloa. HPI Consult Data Date of Consult: 12/06/21 HPI Narrative HPI Narrative: EDU ULLOA, is a 26 M with past medical significant for hypertension, post traumatic stress disorder, history of remote CVA in August 2021 with right eye vision changes who presented to the ER yesterday via squad. 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 Once he awoke he summoned squad for assistance. He was given aspirin and sublingual nitro and taken to the emergency room. Blood pressure was elevated in the emergency room, 214/140. ER work-up included CT of chest, a bdomen and pelvis with contrast. He also had chest x-ray which did not show any fluid and CT of brain which did not show any acute process. Patient however was admitted for further evaluation and treatment. Nephrology was consulted. Patient was found to have creatinine of 2.69 mg/dL in the emergency room yesterday, today his creatinine is 2.61 mg/dL. In reviewing past creatinine trends, patient has had a noted elevated creatinine dating back to at least November 2020. Possible baseline creatinine ranging around 1.3 to 1.5 mg/dL. Patient did have a creatinine of 2.09 mg/dL May 19, 2021. Patient was also noted to be hypokalemic with potassium 2.4 yesterday, potassium is 2.7 today. Patient has had noted low potassium trends since May of this year. Patient denies any recent nausea, vomiting or diarrhea. 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 He reports he takes ibuprofen 400 mg daily. Denies any dysuria or hematuria. Denies any recent urinary habitus changes. Reports he has not seen primary care physician for some time. 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 States does not take any diuretics. States takes doxazosin every other day for history of posttraumatic stress disorder. Patient reports he has had multiple family members with history of chronic kidney disease as well as end-stage renal disease. Patient reports his mother was on hemodialysis support, she when patient was 6 years old. [facility] Medical History Bipolar 1 disorder Bleach ingestion GERD (gastroesophageal reflux disease) Hypertension Irritable bowel syndrome (IBS) Overdose PUD (peptic ulcer disease) Stage 3b chronic kidney disease (CKD) Suicide gesture Tobacco abuse Home Medications aripiprazole 15 mg tablet (Abilify) 15 mg PO BID mood stabilizer 07/30/21 [History Last Taken 07/30/21] clonazepam 1 mg tablet (Klonopin) 1 mg PO DAILY mood stabilizer 07/30/21 [History Last Taken 07/29/21] clonazepam 1 mg tablet (Klonopin) 3 mg PO QHS mood stabilizer 07/30/21 [History Last Taken 07/29/21] levetiracetam 250 mg tablet (Keppra) 250 mg PO DAILY tremors 07/30/21 [History Last Taken 07/30/21] levetiracetam 500 mg tablet (Keppra) 500 mg PO QHS tremors 07/30/21 [History Last Taken 07/29/21] omeprazole 40 mg capsule,delayed release 40 mg PO DAILY gerd 07/30/21 [History Last Taken 07/30/21] prazosin 5 mg capsule 5 mg PO QHS blood pressure/ anxiety 07/30/21 [History Last Taken 07/29/21] trazodone 100 mg tablet 100 mg PO QHS insomnia 07/30/21 [History Last Taken 07/29/21] sucralfate 1 gram tablet 1 g PO 1HR_ACHS Check with primary doctor 12/05/21 [History Last Taken Unknown] Allergy/AdvReac Type Severity Reaction Status Date / Time No Known Allergies Allergy Verified 07/30/21 06:49 Family History Mother Diabetes Hypertension HLD (hyperlipidemia) Bipolar disorder Father Hypertension HLD (hyperlipidemia) Bipolar disorder Diabetes Surgical History H/O left knee surgery Social History household members: none Smoking Status: Current every day smoker tobacco type: e-cigarettes Smokeless tobacco user: other alcohol intake: current alcohol intake frequency: a few times a week substance use type: does not use ROS ROS Narrative per HPI and PMH Physical Exam Narrative Alert and oriented x3, no apparent distress Cardio: S1, S2, RRR Respiratory: Lung sounds clear anteriorly and posteriorly. No wheezes, rhonchi or rales noted Gastrointestinal: Abdomen soft, nontender, positive bowel sounds x4 quadrants Extremities: No pitting edema noted bilateral lower legs, feet or arms Lab / Micro Data Result Diagrams: 12/06/21 05:40 12/06/21 05:40 Labs: Laboratory Results - last 24 hr 12/05/21 11:10: Troponin I High Sens 163 H* 12/05/21 14:50: Troponin I High Sens 152 H* 12/05/21 20:08: COVID-19 (CLAY) Not Detected 12/06/21 05:40: WBC 6.5, RBC 4.36 L, Hgb 13.1, Hct 40.0, MCV 91.7, MCH 30.0, MCHC 32.8, RDW Std Deviation 46.4 H, RDW Coeff of [place] 13.8, Plt Count 211, MPV 12.4 H, Immature Gran % (Auto) 0.300, Neut % (Auto) 71.2 H, Lymph % (Auto) 14.7 L, [place] % (Auto) 9.1, Eos % (Auto) 3.9, Baso % (Auto) 0.8, Absolute Neuts (auto) 4.6, Absolute Lymphs (auto) 0.95, Nucleated RBC % 0 12/06/21 05:40: Sodium 136, Potassium 2.7 L*, Chloride 100, Carbon Dioxide 29.0, Anion Gap 7, BUN 23 H, Creatinine 2.61 H, Estim Creat Clear Calc 42.14, Est GFR (MDRD) Af Amer 38 L, Est GFR (MDRD) Non-Af 31 L, BUN/Creatinine Ratio 8.8 L, Glucose 93, Calcium 8.4 L, Magnesium 2.6, TSH 1.34 Radiology Impression Chest/Abdomen/Pelvis CTA 12/05/21 11:55 IMPRESSION: Circumferential wall thickening of the sigmoid colon may be secondary to underlying colitis and/or a neoplastic process. Colonic diverticulosis. Fatty infiltration of the liver. Scattered groundglass opacities within the right lower lobe, a nonspecific finding may be secondary to edema and/or an infectious process. Electronically Signed: Jess Rao MD at 15:01 EDT ,
[2021-12-06] MEDS: 0.9% Saline Lock 10 ML Syringe IV (12:00)
[2021-12-06 15:39] LABS: Mucous, Urine 0 SEEN /hpf (<or=2+); Red Blood Cells-Urine 0 SEEN /hpf (0-5); Squamous Epithelial Cells - UA 0 SEEN /hpf (0-5)
[2021-12-06 15:47] LABS: Color, Urine Yellow (Yellow); Glucose, Dipstick Normal (Normal); Ketone-Dipstick Negative (Negative); Leukocyte Esterase-Dipstick 25 /ul (Negative); Nitrite-Dipstick Negative (Negative); Occult Blood-Urine Negative /ul (Negative); Protein-Dipstick 100 mg/dl (Negative); Specific Gravity, Urine 1.015 (1.002-1.030); Urine Bilirubin Dipstick Negative (Negative); Urine Clarity Clear (Clear); Urine Urobilinogen Normal (Normal)
[2021-12-06 16:00] LABS: White Blood Cells 0-5 SEEN /hpf (0-5)
[2021-12-06 16:01] LABS: Bacteria 1+ /hpf (None Seen)
[2021-12-06 16:28] LABS: Protein, Urine (Random) 163.1 mg/dL (<11.9); Protein:Creat Ratio 1348 mg/g CRE (0-200)
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
[2021-12-06] MEDS: traZODone 100 MG Tablet PO (21:49)
[2021-12-06] MEDS: levETIRAcetam 500 MG Tablet PO (21:50)
[2021-12-06] MEDS: Doxazosin 4 MG Tablet PO (21:50)
[2021-12-06] MEDS: clonazePAM 1 MG Tablet 3 MG PO (21:54)
[2021-12-07 03:00] VITALS: PULSE 88
[2021-12-07 03:03] VITALS: BP 151/97; PULSE 89; RESP 16; TEMP 36.9; O2SAT 100
[2021-12-07 06:40] VITALS: BP 173/123; PULSE 97; RESP 18; TEMP 36.6; O2SAT 99
[2021-12-07] MEDS: Sucralfate 1 GM Tablet PO ×2 (06:41→11:49)
[2021-12-07 06:55] LABS: BUN 24 mg/dL (7-18); BUN/Creat Ratio 10.9 RATIO (10-20); Calcium,Total 8.4 mg/dL (8.5-10.1); Chloride 105 mmol/L (98-107); EST Glomerular Filtration Rate 38 mL/min (>60); Est Glom Filt Rate - Afr Amer 46 mL/min (>60); Estimated Creatinine Clearance 49.99 ml/min; Glucose 93 mg/dL (74-106); Phosphorus 2.4 mg/dL (2.5-4.9); Potassium 3.2 mmol/L (3.5-5.1); Sodium Level 137 mmol/L (136-145)
[2021-12-07 06:59] VITALS: PULSE 99
--- NOTE | 2021-12-07 08:59 | PN.HOSP_ITS ---
Subjective Subjective Feels good. No events overnight. Objective Data Objective Data Vital Signs: Vital Signs Temp Pulse Resp BP Pulse Ox O2 Del Method 36.6 C 99 18 173/123 H 99 Room Air 12/07/21 06:40 12/07/21 06:59 12/07/21 06:40 12/07/21 06:40 12/07/21 06:40 12/07/21 06:40 Oxygen Delivery Method Room Air Weight: 96.3 kg Body Mass Index (BMI) 31.3 Intake & Output: Intake and Output for Last 24 Hours 12/05/21 12/06/21 12/07/21 23:59 23:59 23:59 Intake Total 1000 / 1000 2200 / 2600 1200 / 1200 Balance 1000 / 1000 2200 / 2600 1200 / 1200 Lab / Micro Data Result Diagrams: 12/06/21 05:40 12/07/21 05:53 Labs: Laboratory Results - last 24 hr 12/06/21 12:52: Urine Color Yellow, Urine Clarity Clear, Urine pH 6.0, Ur Specific [place] 1.015, Urine Protein 100 H, Urine Glucose (UA) Normal, Urine Ketones Negative, Urine Occult Blood Negative, Urine Nitrite Negative, Urine Bilirubin Negative, Urine Urobilinogen Normal, Ur Leukocyte Esterase 25 H, Urine RBC 0 SEEN, Urine WBC 0-5 SEEN, Ur Squamous Epith Cells 0 SEEN, Urine Bacteria 1+, Urine Mucus 0 SEEN 12/06/21 15:25: U Random Total Protein 163.1 H, Urine Creatinine 121.00, Protein/Creatinin Ratio 1348 H 12/07/21 05:53: Sodium 137, Potassium 3.2 L, Chloride 105, Carbon Dioxide 25.0, BUN 24 H, Creatinine 2.20 H, Estim Creat Clear Calc 49.99, Est GFR (MDRD) Af Amer 46 L, Est GFR (MDRD) Non-Af 38 L, BUN/Creatinine Ratio 10.9, Glucose 93, Calcium 8.4 L, Phosphorus 2.4 L, Albumin 2.0 L Radiography Diagnostic Testing: Radiology Impression Echocardiogram 12/06/21 05:55 Interpretation Summary Normal LV size. Left ventricular systolic function is normal. The estimated ejection fraction is 60 %. The left atrium is moderately enlarged. Moderate concentric left ventricular hypertrophy. Ordering Physician: Vibha Goldsmith Performed By: Laurita Acuna RCS Physical Exam Const alert and no apparent distress Resp normal respiratory effort, no retractions, no use of accessory muscles and clear to auscultation bilaterally Cardio regular rate, regular rhythm, S1 normal heart sound and S2 normal heart sound GI normal to inspection, nondistended, normoactive bowel sounds Assessment & Plan Assessment/Plan (1) Hypertensive emergency: (2) Chest pain: (3) Acute hypokalemia: PLAN: Plan 1. Hypertensive emergency * resolved * he says he is on prazosin. 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 This is therefore concerning for hyperaldosteronism * 2D echo in May 2021 showed EF of 60%,l with normal LV systolic function and moderate concentric LV hypertrophy, with impaired relaxation of LV and RVSP of 24mmHg. * start on amlodipine 10mg daily, metoprolol 25mg bid and lisinopril 40mg daily * CTA negative for SHARDA * on spironolactone and metoprolol 2. Elevated troponin * EKG showed t wave inversions in lateral leads * 2D echo shows an EF 60% * I think this is likely due to hypertensive emergency and also likely decreased clearance from Julianna on CKD stage II. * discussed with Dr Hardwick; will get 2D echo, but hold off on any anticoagulation,a nd to follow with cardiology on outpatient basis for Coronary angiogram to detect any abnormalities. 3. Hypokalemia: * K is 3.2. It appears this extends back to May 2021. * considering his hypertensive emergency and hypokalemia, this is concerning for hyperaldosteronism * will get renniin/aldosterone ratio checked once potassium is corrected * correct potassium aggressively * will benefit from endocrinology referral on outpatient basis due to concern for hyperaldosteronism * CT of the abdomen was negative for any evidence of adrenal mass. 4. JULIANNA on CKD stage II: * Cr is 2.69, with baseline being ~ 1.5. will monitor and trend. * also hydrate as he received IV cotnrast for the CTA chest * nephrology follow up. * cannot rule out hyperaldosteronism. renin and aldosterone still pending. 5. History of CVA: * patient tells me he has a history of stroke. From EMR discharge summary from 07/31/2021, stroke was ruled out and there was concern for a possible demyelinating process. * on keppra 6. History of bipolar disorder: on abilify and klonopin 7. Sigmoid wall thickening colitis v neoplastic process follow up with GI as outpt. pt asymptomatic DVT prophylaxis: lovenox Code status: full code * Patient told me that he did not want to be resuscitated and wanted to be DNR CCA with no intubation. In light of his very young age, I extensively counseled patient to be sure that he was fully aware and understood what DNR CCA meant. I clarified that this would mean he would not have CPR or intubation if needed. Again I counseled patient that in light of his relative youth, he had a good chance of being resuscitated successfully if he needed it. Patient initially insisted that he still wanted to be DNR CCA with no in tubation as he did not have any family and only had a PET and lived in a small apartment by himself and so did not think that he would have anything to live for. After asking patient to explain what he thought DNR CCA meant to be sure that he understood it, patient subsequently stated that he would want to be resuscitated and he had changed his mind. CODE STATUS is therefore full code.
[2021-12-07 09:36] VITALS: BP 164/108; PULSE 100; RESP 17; TEMP 37.1; O2SAT 100
[2021-12-07] MEDS: Pantoprazole Sodium 40 MG Tablet PO (09:41)
[2021-12-07 09:42] VITALS: PULSE 100
[2021-12-07] MEDS: ARIPiprazole 5 MG Tablet 15 MG PO (09:42)
[2021-12-07] MEDS: Metoprolol Tartrate 25 MG Tablet PO (09:42)
[2021-12-07] MEDS: Potassium Chloride Oral Tablet 20 MEQ 40 MEQ PO (09:42)
[2021-12-07] MEDS: Enoxaparin 40 MG/0.4 ML Syringe SC (09:43)
[2021-12-07] MEDS: levETIRAcetam 250 MG Tablet PO (09:43)
[2021-12-07] MEDS: clonazePAM 1 MG Tablet PO (09:46)
--- NOTE | 2021-12-07 11:02 | PCM.PN.REN ---
Subjective Subjective Following for JULIANNA superimposed on CKD Patient denies any complaints today. States overall he is feeling better. No overnight events. Objective Data Objective Data Vital Signs: Vital Signs Temp Pulse Resp BP Pulse Ox O2 Del Method 98.7 F 100 17 164/108 H 100 Room Air 12/07/21 09:36 12/07/21 09:42 12/07/21 09:36 12/07/21 09:36 12/07/21 09:36 12/07/21 09:36 Oxygen Delivery Method Room Air Weight: 96.3 kg Body Mass Index (BMI) 31.3 Intake & Output: Intake and Output for Last 24 Hours 12/05/21 12/06/21 12/07/21 23:59 23:59 23:59 Intake Total 1000 / 1000 2200 / 2600 1200 / 1200 Balance 1000 / 1000 2200 / 2600 1200 / 1200 Lab / Micro Data Result Diagrams: 12/06/21 05:40 12/07/21 05:53 Labs: Laboratory Results - last 24 hr 12/06/21 12:52: Urine Color Yellow, Urine Clarity Clear, Urine pH 6.0, Ur Specific [place] 1.015, Urine Protein 100 H, Urine Glucose (UA) Normal, Urine Ketones Negative, Urine Occult Blood Negative, Urine Nitrite Negative, Urine Bilirubin Negative, Urine Urobilinogen Normal, Ur Leukocyte Esterase 25 H, Urine RBC 0 SEEN, Urine WBC 0-5 SEEN, Ur Squamous Epith Cells 0 SEEN, Urine Bacteria 1+, Urine Mucus 0 SEEN 12/06/21 15:25: U Random Total Protein 163.1 H, Urine Creatinine 121.00, Protein/Creatinin Ratio 1348 H 12/07/21 05:53: Sodium 137, Potassium 3.2 L, Chloride 105, Carbon Dioxide 25.0, BUN 24 H, Creatinine 2.20 H, Estim Creat Clear Calc 49.99, Est GFR (MDRD) Af Amer 46 L, Est GFR (MDRD) Non-Af 38 L, BUN/Creatinine Ratio 10.9, Glucose 93, Calcium 8.4 L, Phosphorus 2.4 L, Albumin 2.0 L Radiography Diagnostic Testing: Radiology Impression Echocardiogram 12/06/21 05:55 Interpretation Summary Normal LV size. Left ventricular systolic function is normal. The estimated ejection fraction is 60 %. The left atrium is moderately enlarged. Moderate concentric left ventricular hypertrophy. Ordering Physician: Vibha Goldsmith Performed By: Laurita Acuna RCS Physical Exam Narrative Alert and oriented x3, no apparent distress Cardio: S1, S2, RRR Respiratory: Lung sounds clear anteriorly and posteriorly. No wheezes, rhonchi or rales noted Gastrointestinal: Abdomen soft, nontender, positive bowel sounds x4 quadrants Extremities: No pitting edema noted bilateral lower legs, feet or arms Assessment & Plan Assessment/Plan (1) JULIANNA (acute kidney injury): (2) CKD (chronic kidney disease), stage III: (3) Accelerated essential hypertension: (4) Acute hypokalemia: PLAN: Plan Patient was admitted to the hospital after presenting to the emergency room via squad after he had passed out at home after coming home from work. He was noted to be significantly hypertensive, BP 214/140. Patient was also found to have elevated troponin level, elevated creatinine and hypokalemia. -JULIANNA on CKD: Today SCr improved to 2.20mg/dL. Creatinine was 2.69 mg/dL in the emergency room 12/05 --> 12/06 SCr 2.61mg/dL. - CKD stage III: patient has had elevated creatinine dating back to at least November 2020. Possible baseline creatinine around 1.3-1.5 mg/dL. Patient does have risk factors for CKD including uncontrolled hypertension as well as long-term NSAID use. CT of A/P did not show any hydro, there are normal size and shape, no nephrolithiasis, renal masses or cysts. UA +protein, negative occult blood. Urine p/c ratio 1.3gm. - HTN: Bps improved on doxazosin 4 mg daily and lopressor 25mg bid. This am bps slightly elevated and will add aldactone 25mg dialy. Orthos negative. Echo: normal LV size, LV systolic function normal, EF 60%, left atrium moderately enlarged, moderate concentric LVH. Reviewed with patient importance of taking bp meds daily, not missing doses, no NSAIDs, tobacco cessation. Also reviewed importance of slow, intentional weight loss and low sodium diet - Hypokalemia: low potassium trends since May 2021. Patient was hypokalemic in the emergency room with potassium of 2.4. There is concern for hyperaldosteronism. Renin and aldosterone levels are pending. TSH is normal. Potassium trends are improving, currently receiving IV piggyback potassium. Starting aldactone today. Endocrine consult in outpatient setting. CT of abdomen was negative for evidence of adrenal mass. 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 Potassium is low/improving with replacement, bicarb acceptable and patient appears to be near euvolemic on exam. Patient is nonoliguric. Discussed with patient importance of avoiding NSAIDs (was taking ibuprofen daily), smoking cessation (Vapes) and good blood pressure control to attenuate possible CKD progression. -ok for discharge per renal team, d/w Dr. March. Patient to follow up in ~2weeks in office. Patient aware of importance of follow-up/nephrology care.
[2021-12-07] MEDS: Spironolactone 25 MG Tablet PO (11:49)
--- NOTE | 2021-12-07 12:14 | CASEMGMT ---
Social Work Note SW back in to speak with pt to continue discussion. Pt states that he remembers this worker from yesterday and the conversation. Pt states that he is doing okay today. SW provided pt with list of counseling agencies. SW encouraged pt to allow this worker to make a referral to a local agency to get the process started and to get an intake scheduled. Pt states that he needs to look at his work schedule and then will call. Pt denied wanting this worker to make an appointment for him. SW asked pt again about his psych medications being refilled. Pt states that he called [facility] in [place] and spoke to someone on the phone requesting a refill and then he got a refill. Pt states he is not sure who he talked to but states he was able to get a refill. Pt states that his last refill was about a month and half ago and states he has enough medications to get him through this week but states he is running out. Pt states that he was looking into getting linked up with a doctor so he can continue to get his refills. SW encouraged pt to do that. SW spoke with pt about [facility] and how since pt does not have insurance, they do a sliding scale, and will work with pt on his payments and how they have a psychiatrist that would be able to refill his prescriptions. Pt states understanding. SW again encouraged pt to allow this worker to make a referral, pt states I need to do it myself so I can take responsibility and be invested. SW encouraged pt to call soon as this worker does not know the schedule and they could be scheduled out pretty far. SW informed pt that there is a concern if he is going to be off his medications since pt reported that they work well for him. Pt states that he has been trying to get financially set. Pt states that in the beginning of the year he was in a two year relationship and they were getting a house and getting furniture for the house. Pt states that the relationship ended and pt got kicked out and was homeless and staying in a hotel. Pt states staying in a hotel took most of his savings. Pt states that at that time was when he attempted suicide. Pt states that he has one friend who lives local in [place] but states his other friends live about an hour away. Pt states that after his suicide attempt, he had a stroke and lost some of his vision. Pt states that he was working at [facility] and they worked with him well after his suicide attempt for rehab. 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 Pt confirms that when he was seeing a therapist he was seeing one at [facility]. Pt states that they worked through the technicalities to allow him to not be employed and to use their services. Pt states that he was technically let go on medical leave. SW asked pt about his pet at home. Pt states that he does not have a Pet at home. Pt states that he has a stuffed bunny that does not require a lot of clean up and does not eat a lot. Pt states that is the only pet he has. Pt states that he does have daggers and machetes in his apartment. Pt states that he has them for protection. Pt states that he does not have any guns in the home. SW spoke with pt again about coping skills. Pt confirms that he likes to watch TV, videos, and play video games. Pt states anything to keep my mind occupied. Pt denied any current suicidal/homicidal thoughts/plans/ideations. Pt denied any additional needs or concerns at this time. Pt much more alert and interactive with this SW and with conversation today. Pt appeared in good spirits and had appropriate eye contact. Pt is able to make jokes with this worker and laugh with this worker during conversation. Pt more talkative today and had appropriate behaviors. SW did encourage pt multiple times to allow this worker to make an intake appointment for him for counseling and pt denied multiple times. Pt stated that he needs to be the one to call and make appointments so he can take responsibility and be invested. Pt was provided list of counseling agencies. Pt denied any current suicidal/homicidal thoughts/plans/ideations. Yesterday, pt also denied any current suicidal thoughts/plans. Plan: Pt to discharge home. Pt states he will follow up with counseling and make an appointment. Jaylyn Handy EDUCATIONAL TECHNOLOGIST, WINDOW TRIMMER
--- NOTE | 2021-12-07 13:14 | DCINST_ITS ---
Discharge Instructions Diet Discharge Diet: Low fat / Low cholesterol Dressing / Incision Call your doctor if you observe: Fainting spells Follow Up Care Test Results: Test results from this visit will be discussed in further detail at your follow- up appointment, if applicable. Discharge Plan Admission Admit Date/Time: 12/05/21 11:35 Primary Reason for Your Visit: syncope. acute kidney injury. hypertension Attending Provider: Casey March Primary Care Provider: Care Physician,No Primary Consulting Providers: Vibha Goldsmith ; Alysha Rico Instructions Additional Instructions / Restrictions: obtain a blood pressure cuff and check your BP daily and as needed Discharge Orders/Prescriptions Prescriptions: New metoprolol tartrate 25 mg Tablet 25 mg PO BID Qty: 60 0RF spironolactone 25 mg Tablet 25 mg PO DAILY Qty: 30 0RF Continued levetiracetam [Keppra] 500 mg Tablet 500 mg PO QHS clonazepam [Klonopin] 1 mg Tablet 1 mg PO DAILY clonazepam [Klonopin] 1 mg Tablet 3 mg PO QHS prazosin 5 mg Capsule 5 mg PO QHS Rx Instructions: DOSE UNKNOWN levetiracetam [Keppra] 250 mg Tablet 250 mg PO DAILY trazodone 100 mg Tablet 100 mg PO QHS aripiprazole [Abilify] 15 mg Tablet 15 mg PO BID omeprazole 40 mg Capsule,Delayed Release(Dr/Ec) 40 mg PO DAILY sucralfate 1 gram tablet 1 g PO 1HR_ACHS Referrals / Follow Up: Alysha Rico MD [Med Staff - Consulting] - Within 1 Month Dave Stratton DO [Med Staff - Active Staff] - Within 1 Month Care Physician,No Primary [Primary Care Provider] - Disposition Disposition (needs filled in before D/C Order can be placed): Home, Self Care
--- NOTE | 2021-12-07 13:17 | DS.PCM_ITS ---
Providers Date of Admission: 12/05/21 Primary Care Physician: No Primary Care Phys Consultations 12/06/21 11:42 Consult: Nephrology Routine Consulting Provider: Alysha Rico Reason for Consult: CKD, EMERGENT Consult: No MD Notified: Yes Date Notified: 12/06/21 Time Notified: 11:43 Method of Notification: Text Reason For Visit: HYPERTENSIVE EMERGENCY Diagnosis Discharge Diagnosis (1) Hypertensive emergency: Status: Acute Code(s): I16.1 - Hypertensive emergency (2) Chest pain: Status: Acute Code(s): R07.9 - Chest pain, unspecified (3) Acute hypokalemia: Status: Acute Code(s): E87.6 - Hypokalemia Plan 1. Hypertensive emergency * resolved * he says he is on prazosin. 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 This is therefore concerning for hyperaldosteronism * 2D echo in May 2021 showed EF of 60%,l with normal LV systolic function and moderate concentric LV hypertrophy, with impaired relaxation of LV and RVSP of 24mmHg. * start on amlodipine 10mg daily, metoprolol 25mg bid and lisinopril 40mg daily * CTA negative for SHARDA * on spironolactone and metoprolol 2. Elevated troponin * EKG showed t wave inversions in lateral leads * 2D echo shows an EF 60% * I think this is likely due to hypertensive emergency and also likely decreased clearance from Julianna on CKD stage II. * discussed with Dr Hardwick; will get 2D echo, but hold off on any anticoagulation,a nd to follow with cardiology on outpatient basis for Coronary angiogram to detect any abnormalities. 3. Hypokalemia: * K is 3.2. It appears this extends back to May 2021. * considering his hypertensive emergency and hypokalemia, this is concerning for hyperaldosteronism * will get renniin/aldosterone ratio checked once potassium is corrected * correct potassium aggressively * will benefit from endocrinology referral on outpatient basis due to concern for hyperaldosteronism * CT of the abdomen was negative for any evidence of adrenal mass. 4. JULIANNA on CKD stage II: * Cr is 2.69, with baseline being ~ 1.5. will monitor and trend. * also hydrate as he received IV cotnrast for the CTA chest * nephrology follow up. * cannot rule out hyperaldosteronism. renin and aldosterone still pending. 5. History of CVA: * patient tells me he has a history of stroke. From EMR discharge summary from 07/31/2021, stroke was ruled out and there was concern for a possible demyelinating process. * on keppra 6. History of bipolar disorder: on abilify and klonopin 7. Sigmoid wall thickening colitis v neoplastic process follow up with GI as outpt. pt asymptomatic Medications at Discharge Home Medications aripiprazole 15 mg tablet (Abilify) 15 mg PO BID mood stabilizer 07/30/21 clonazepam 1 mg tablet (Klonopin) 1 mg PO DAILY mood stabilizer 07/30/21 clonazepam 1 mg tablet (Klonopin) 3 mg PO QHS mood stabilizer 07/30/21 levetiracetam 250 mg tablet (Keppra) 250 mg PO DAILY tremors 07/30/21 levetiracetam 500 mg tablet (Keppra) 500 mg PO QHS tremors 07/30/21 omeprazole 40 mg capsule,delayed release 40 mg PO DAILY gerd 07/30/21 prazosin 5 mg capsule 5 mg PO QHS blood pressure/ anxiety 07/30/21 trazodone 100 mg tablet 100 mg PO QHS insomnia 07/30/21 sucralfate 1 gram tablet 1 g PO 1HR_ACHS Check with primary doctor 12/05/21 metoprolol tartrate 25 mg tablet 25 mg PO BID #60 tabs 12/07/21 spironolactone 25 mg tablet 25 mg PO DAILY #30 tabs 12/07/21 Hospital Course Operations None Procedures 2-D Echocardiogram Summary of Care Provided Minutes Spent on Discharge: 32 Weight / BMI Weight Weight: 96.3 kg Body Mass Index (BMI) 31.3 ABG / Lab / Microbiology Data Result Diagrams: 12/06/21 05:40 12/07/21 05:53 Laboratory: Laboratory Results - last 24 hr 12/06/21 12:52: Urine Color Yellow, Urine Clarity Clear, Urine pH 6.0, Ur Specific [place] 1.015, Urine Protein 100 H, Urine Glucose (UA) Normal, Urine Ketones Negative, Urine Occult Blood Negative, Urine Nitrite Negative, Urine Bilirubin Negative, Urine Urobilinogen Normal, Ur Leukocyte Esterase 25 H, Urine RBC 0 SEEN, Urine WBC 0-5 SEEN, Ur Squamous Epith Cells 0 SEEN, Urine Bacteria 1+, Urine Mucus 0 SEEN 12/06/21 15:25: U Random Total Protein 163.1 H, Urine Creatinine 121.00, Protei n/Creatinin Ratio 1348 H 12/07/21 05:53: Sodium 137, Potassium 3.2 L, Chloride 105, Carbon Dioxide 25.0, BUN 24 H, Creatinine 2.20 H, Estim Creat Clear Calc 49.99, Est GFR (MDRD) Af [place] r 46 L, Est GFR (MDRD) Non-Af 38 L, BUN/Creatinine Ratio 10.9, Glucose 93, Calcium 8.4 L, Phosphorus 2.4 L, Albumin 2.0 L Radiography Diagnostic Testing: Radiology Impression Echocardiogram 12/06/21 05:55 Interpretation Summary Normal LV size. Left ventricular systolic function is normal. The estimated ejection fraction is 60 %. The left atrium is moderately enlarged. Moderate concentric left ventricular hypertrophy. Ordering Physician: Vibha Goldsmith Performed By: Laurita Acuna RCS D/C Instructions Discharge Diet: Low fat / Low cholesterol Call your doctor if you observe: Fainting spells Meaningful Use Info Meaningful Use Diagnoses (Choose all that apply): None applicable Discharge Plan Admission Admit Date/Time: 12/05/21 11:35 Primary Reason for Your Visit: syncope. acute kidney injury. hypertension Attending Provider: Casey March Primary Care Provider: Care Physician,No Primary Consulting Providers: Vibha Goldsmith ; Alysha Rico Instructions Additional Instructions / Restrictions: obtain a blood pressure cuff and check your BP daily and as needed Discharge Orders/Prescriptions Prescriptions: New metoprolol tartrate 25 mg Tablet 25 mg PO BID Qty: 60 0RF spironolactone 25 mg Tablet 25 mg PO DAILY Qty: 30 0RF Continued levetiracetam [Keppra] 500 mg Tablet 500 mg PO QHS clonazepam [Klonopin] 1 mg Tablet 1 mg PO DAILY clonazepam [Klonopin] 1 mg Tablet 3 mg PO QHS prazosin 5 mg Capsule 5 mg PO QHS Rx Instructions: DOSE UNKNOWN levetiracetam [Keppra] 250 mg Tablet 250 mg PO DAILY trazodone 100 mg Tablet 100 mg PO QHS aripiprazole [Abilify] 15 mg Tablet 15 mg PO BID omeprazole 40 mg Capsule,Delayed Release(Dr/Ec) 40 mg PO DAILY sucralfate 1 gram tablet 1 g PO 1HR_ACHS Referrals / Follow Up: Alysha Rico MD [Med Staff - Consulting] - Within 1 Month Dave Stratton DO [Med Staff - Active Staff] - Within 1 Month Care Physician,No Primary [Primary Care Provider] - Disposition Disposition (needs filled in before D/C Order can be placed): Home, Self Care Charges/Coding Visit Charges Inpatient E&M: 35805 Disch Hosp
--- NOTE | 2021-12-07 15:02 | PHA.DC.MC ---
Pharmacy Service has performed discharge medication reconciliation and counseling for this patient. 1. METOPROLOL TARTRATE 25MG PO BID 2. SPIRONOLACTONE 25MG PO DAILY The patient's discharge medication list was reviewed for discrepancies and discrepancies were resolved. Home Medications aripiprazole 15 mg tablet (Abilify) 15 mg PO BID mood stabilizer 07/30/21 clonazepam 1 mg tablet (Klonopin) 1 mg PO DAILY mood stabilizer 07/30/21 clonazepam 1 mg tablet (Klonopin) 3 mg PO QHS mood stabilizer 07/30/21 levetiracetam 250 mg tablet (Keppra) 250 mg PO DAILY tremors 07/30/21 levetiracetam 500 mg tablet (Keppra) 500 mg PO QHS tremors 07/30/21 omeprazole 40 mg capsule,delayed release 40 mg PO DAILY gerd 07/30/21 prazosin 5 mg capsule 5 mg PO QHS blood pressure/ anxiety 07/30/21 trazodone 100 mg tablet 100 mg PO QHS insomnia 07/30/21 sucralfate 1 gram tablet 1 g PO 1HR_ACHS Check with primary doctor 12/05/21 metoprolol tartrate 25 mg tablet 25 mg PO BID #60 tabs 12/07/21 spironolactone 25 mg tablet 25 mg PO DAILY #30 tabs 12/07/21 The patient was counseled on the following discharge medications and changes in medications for homegoing were reviewed. The Reason for Use, instructions for use, and potential side effects were reviewed for all new medications. The patient's questions regarding all of their medications were answered. The patient was able to verbally demonstrate an understanding of their discharge medications.
[2021-12-09 12:08] LABS: Aldosterone, Serum < 1.0 ng/dL (0.0-30.0)
[2021-12-09 16:28] LABS: ALDOSTERONE/RENIN RATIO <.1 (0.0-30.0)
== END 2021-12-07 15:08 | disposition home or self-care (01) | DRG 305 ==
LOC: ED 10:03 → PCU 11:43
PROVIDERS: Family Medicine; Nurse Practitioner Adult Health; Admitting Provider Student in an Organized Health Care Education/Training Program; Emergency Provider Student in an Organized Health Care Education/Training Program
DX: I16.1 Hypertensive emergency (principal); N17.9 Acute kidney failure, unspecified; F31.9 Bipolar disorder, unspecified; N18.32 Chronic kidney disease, stage 3b; E87.6 Hypokalemia; E83.42 Hypomagnesemia; K21.9 Gastro-esophageal reflux disease without esophagitis; K58.9 Irritable bowel syndrome, unspecified; I12.9 Hypertensive chronic kidney disease with stage 1 through stage 4 chronic kidney disease, or unspecified chronic kidney disease; F17.290 Nicotine dependence, other tobacco product, uncomplicated; Z87.11 Personal history of peptic ulcer disease; Z79.899 Other long term (current) drug therapy; Z87.19 Personal history of other diseases of the digestive system; Z91.14 Patient's other noncompliance with medication regimen; K63.89 Other specified diseases of intestine; Z79.1 Long term (current) use of non-steroidal anti-inflammatories (NSAID)
CPT/HCPCS: 36415; 70450; 71045; 71275; 74174; 80048; 80069; 81001; 82088; 82570; 83735; 84156; 84244; 84443; 84484; 85025; 87635; 93005; 93306; 97802; 99285; 99406; J7030; Q9957; Q9967; A4216; U0003; U0005

== ENCOUNTER 2021-12-17 18:51 | Observation (INO) | payer SELFPAY ==
[2021-12-17] VITALS (9 sets, daily range): BP systolic 171–215; BP diastolic 128–165; PULSE 95–110; RESP 14–34; TEMP 35.9; O2SAT 94–100; BMI 35.2
--- NOTE | 2021-12-17 19:31 | EKG12_ITS ---
Test Reason : CP Blood Pressure : / mmHG Vent. Rate : 099 BPM Atrial Rate : 099 BPM P-R Int : 124 ms QRS Dur : 088 ms QT Int : 390 ms P-R-T Axes : 063 061 027 degrees QTc Int : 500 ms Normal sinus rhythm Low voltage QRS (Limb Leads) T wave abnormality, consider lateral ischemia Prolonged QT Poor R wave progression Abnormal ECG Confirmed by NAT HAYS, ALBERTO ([id number]), makeup editor JARAD ESTRADA ([id number]) on 12/20/2021 10:18:11 AM Referred By: ROSINA Confirmed By:ALBERTO JOHNS MD
[2021-12-17 19:52] LABS: Absolute Lymphocyte Count 1.57 X10^3/uL (0.83-4.51); Absolute Neutrophil Count 7.8 X10^3/uL (2.0-7.7); Basophil% 0.9 % (0-1); Eosinophil# 0.22 X10^3/uL; Eosinophils% 2.1 % (0-5); Hematocrit 41.3 % (40-54); Hemoglobin 13.3 g/dL (13.0-16.5); Lymphocyte # 1.57 X10^3/ul (0.83-4.51); Lymphocyte % 14.9 % (19-41); Mean Corp Hgb Conc 32.2 g/dL (32-36); Mean Corpuscular Hgb 29.9 pg (27.0-32.0); Mean Corpuscular Volume 92.8 fL (80-94); Mean Platelet Vol. 11.3 fl (6.2-12.0); Monocyte# 0.83 X10^3/uL; Monocyte% 7.9 % (0-10); NRBC Flagged by Analyzer 0 % (0-5); Neutrophil # 7.79 X10^3/uL (2.7-7.7); Neutrophil % 73.7 % (47-70); Platelet Count 309 K/mm3 (150-450); RBC Distribution Width CV 14.3 % (11.6-14.6); Red Blood Count 4.45 M/mm3 (4.6-6.2); White Blood Count 10.6 K/mm3 (4.4-11.0)
[2021-12-17] MEDS: hydrALAZINE 20 MG/ML Vial 10 MG IV (19:56)
--- NOTE | 2021-12-17 19:56 | RAD_ITS ---
STUDY: X-RAY CHEST REASON FOR EXAM: Male, 26 years old. chest pain TECHNIQUE: Single frontal view of the chest. COMPARISON: CT chest 12/05/2021 and chest x-ray 12/05/2021 FINDINGS: The lungs are clear and expanded. There is no demonstrated pleural abnormality. Cardiomegaly. Normal mediastinum and bharath. Normal visualized pulmonary arteries. Normal visualized aortic arch and descending thoracic aorta. Normal visualized thoracic spine. Normal visualized ribs, clavicles, and shoulders. There is no demonstrated abnormality of the visualized soft tissue structures of the upper abdomen. RAD/Chest 1 View (Portable) IMPRESSION: Cardiomegaly. No acute disease.. Electronically Signed: Andrew Mcgovern MD at 21:08 EDT ,
[2021-12-17 20:12] LABS: Anion Gap 12 (5-15); BUN 27 mg/dL (7-18); BUN/Creat Ratio 10.1 RATIO (10-20); Calcium,Total 8.9 mg/dL (8.5-10.1); Chloride 106 mmol/L (98-107); Creatinine, Serum 2.68 mg/dL (0.70-1.30); EST Glomerular Filtration Rate 30 mL/min (>60); Est Glom Filt Rate - Afr Amer 37 mL/min (>60); Estimated Creatinine Clearance 41.04 ml/min; Glucose 110 mg/dL (74-106); Potassium 3.7 mmol/L (3.5-5.1); Sodium Level 137 mmol/L (136-145); Troponin-I HS 83 pg/mL (3.0-78.0)
--- NOTE | 2021-12-17 20:16 | EDS_ITS ---
HPI History of Present Illness Chief Complaint: Chest Pain Informant: patient Narrative Narrative: Patient tells me that he has been getting intermittent some sharp chest pain in different areas for couple days. He feels a little bit more winded than normal. But that comes and goes. He checked his blood pressure and it was very high. He does have a history of high blood pressure. He was on prazosin and some other medication. It might be lisinopril. He is out of lisinopril now. He was seen in the emergency department recently. He states they wrote for 2 other medicines for blood pressure. He does not know what they are but he swears he is taking them. He has no neurologic symptoms. No nausea vomiting. His biggest concern and reason for coming in is the elevated blood pressure. When I review his chart, I find out he was actually admitted to the hospital. He had not mentioned this to me. He was sent home with additional meds of metoprolol and spironolactone. [facility] Medical History Bipolar 1 disorder Bleach ingestion CKD (chronic kidney disease), stage III CVA (cerebral vascular accident) GERD (gastroesophageal reflux disease) GI bleed Hypertension Irritable bowel syndrome (IBS) Overdose PUD (peptic ulcer disease) Stage 3b chronic kidney disease (CKD) Suicide gesture Tobacco abuse Home Medications aripiprazole 15 mg tablet (Abilify) 15 mg PO BID mood stabilizer 07/30/21 [History Last Taken 07/30/21] clonazepam 1 mg tablet (Klonopin) 1 mg PO DAILY mood stabilizer 07/30/21 [History Last Taken 07/29/21] clonazepam 1 mg tablet (Klonopin) 3 mg PO QHS mood stabilizer 07/30/21 [History Last Taken 07/29/21] levetiracetam 250 mg tablet (Keppra) 250 mg PO DAILY tremors 07/30/21 [History Last Taken 07/30/21] levetiracetam 500 mg tablet (Keppra) 500 mg PO QHS tremors 07/30/21 [History Last Taken 07/29/21] omeprazole 40 mg capsule,delayed release 40 mg PO DAILY gerd 07/30/21 [History Last Taken 07/30/21] prazosin 5 mg capsule 5 mg PO QHS blood pressure/ anxiety 07/30/21 [History Last Taken 07/29/21] trazodone 100 mg tablet 100 mg PO QHS insomnia 07/30/21 [History Last Taken 07/29/21] sucralfate 1 gram tablet 1 g PO 1HR_ACHS Check with primary doctor 12/05/21 [History Last Taken Unknown] metoprolol tartrate 25 mg tablet 25 mg PO BID #60 tabs 12/07/21 [Rx Last Taken Unknown] spironolactone 25 mg tablet 25 mg PO DAILY #30 tabs 12/07/21 [Rx Last Taken Unknown] Allergy/AdvReac Type Severity Reaction Status Date / Time No Known Allergies Allergy Verified 12/17/21 18:52 Family History Mother Diabetes Hypertension HLD (hyperlipidemia) Bipolar disorder Father Hypertension HLD (hyperlipidemia) Bipolar disorder Diabetes Surgical History H/O left knee surgery Social History household members: none Smoking Status: Current every day smoker tobacco type: e-cigarettes Smokeless tobacco user: other alcohol intake: current alcohol intake frequency: a few times a week substance use type: does not use EXAM Physical Exam Const Vital Signs: 12/17/21 18:52 12/17/21 19:20 12/17/21 19:56 Temperature 96.7 F L Temperature Source Temporal Pulse Rate 109 H 100 Respiratory Rate 14 34 H Respiratory Effort Normal Non-Labored Blood Pressure 215/165 H 193/147 H Blood Pressure Mean 181 162 Pulse Ox 94 98 Oxygen Delivery Method Room Air Room Air 12/17/21 20:26 12/17/21 20:26 12/17/21 22:00 Temperature Temperature Source Pulse Rate 98 110 H Respiratory Rate 32 H Respiratory Effort Blood Pressure 197/148 H 171/132 H Blood Pressure Mean 164 145 Pulse Ox 99 Oxygen Delivery Method Room Air Room Air 12/17/21 22:01 12/17/21 22:48 Temperature Temperature Source Pulse Rate 109 H Respiratory Rate Respiratory Effort Blood Pressure 204/147 H 207/143 H Blood Pressure Mean 166 164 Pulse Ox Oxygen Delivery Method Positive well nourished General Appearance ED: NAD HEENT Reports moist mucous membranes Eyes PERRL and EOMs intact bilaterally Neck no JVD Chest Wall inspection of chest normal Chest Narrative: Mild nonfocal tenderness. Resp normal respiratory effort and clear to auscultation bilaterally Auscultation: Negative for rales, rhonchi or wheezes Cardio regular rate, regular rhythm and no murmurs Rate: Negative for bradycardia or tachycardic GI normal to inspection, nondistended, normoactive bowel sounds and soft to palpation Back/Spine no CVA tenderness Back/Spine Narrative: Patient occasionally get pains in his back but is mostly when he is leaning forward picking up boxes. No pain now Extremity Extremity Narrative: Trace bilateral ankle edema which he states is normal Neuro oriented x3 Psych mental status grossly normal Skin no rashes or lesions noted MDM MDM MDM Narrative Medical decision making narrative: Patient's blood work showed normal CBC. His creatinine is starting to go up again. He is gone from 2.2 at discharge to 2.68. This is fairly above his baseline that is probably 1.3-1.5. Troponin is slightly elevated at 83 but slightly less than on his recent admission. X-ray shows cardiomegaly but no CHF. We have given this patient multiple doses of medicine Acac[place]. We are not making any significant alteration in his blood pressure despite doses of hydralazine and labetalol. Since he was already in the hospital, increased his medications for high blood pressure by 2 new meds, is still coming back severely hypertensive with difficulty to control I think inpatient management is appropriate at this time. He does not yet have a primary physician so I have nobody that he can follow-up with to get frequent rechecks. I did discuss the case with hospitalist. They are going to put in for 1 grossly enalapril. Lab Data Attestation: I reviewed the patient's lab results. Labs: Laboratory Results - last 24 hr 12/17/21 12/17/21 19:49 19:49 WBC 10.6 RBC 4.45 L Hgb 13.3 Hct 41.3 MCV 92.8 MCH 29.9 MCHC 32.2 RDW Std Deviation 48.0 H RDW Coeff of [place] 14.3 Plt Count 309 MPV 11.3 Immature Gran % (Auto) 0.500 Neut % (Auto) 73.7 H Lymph % (Auto) 14.9 L [place] % (Auto) 7.9 Eos % (Auto) 2.1 Baso % (Auto) 0.9 Absolute Neuts (auto) 7.8 H Absolute Lymphs (auto) 1.57 Nucleated RBC % 0 Sodium 137 Potassium 3.7 Chloride 106 Carbon Dioxide 19.0 L Anion Gap 12 BUN 27 H Creatinine 2.68 H Estim Creat Clear Calc 41.04 Est GFR (MDRD) Af Amer 37 L Est GFR (MDRD) Non-Af 30 L BUN/Creatinine Ratio 10.1 Glucose 110 H Calcium 8.9 Magnesium 2.0 Troponin I High Sens 83 H Radiography Diagnostic Testing: Clinical Impression(s) from Imaging Studies Chest X-Ray 12/17/21 19:56 IMPRESSION: Cardiomegaly. No acute disease.. Electronically Signed: Andrew Mcgovern MD at 21:08 EDT , EKG Initial EKG: Comments: EKG done for intermittent chest pain shortness of breath read by me shows normal sinus rhythm with no ventricular ectopy. Overall rate of 99. Diffuse nonspecific ST and T wave changes. Slightly long QT. [place] interval and QRS duration are normal. This is similar to 05 December 2021. Discharge Plan Triage Chief Complaint: Chest Pain ED Provider: Gian Gomez Dx/Rx/DC Orders Clinical Impression: Hypertensive emergency, Elevated troponin, Acute kidney injury Prescriptions: No Action levetiracetam [Keppra] 500 mg Tablet 500 mg PO QHS clonazepam [Klonopin] 1 mg Tablet 1 mg PO DAILY clonazepam [Klonopin] 1 mg Tablet 3 mg PO QHS prazosin 5 mg Capsule 5 mg PO QHS Rx Instructions: DOSE UNKNOWN levetiracetam [Keppra] 250 mg Tablet 250 mg PO DAILY trazodone 100 mg Tablet 100 mg PO QHS aripiprazole [Abilify] 15 mg Tablet 15 mg PO BID omeprazole 40 mg Capsule,Delayed Release(Dr/Ec) 40 mg PO DAILY sucralfate 1 gram tablet 1 g PO 1HR_ACHS metoprolol tartrate 25 mg Tablet 25 mg PO BID Qty: 60 0RF spironolactone 25 mg Tablet 25 mg PO DAILY Qty: 30 0RF Primary Care Provider: Care Physician,No Primary Referrals: Care Physician,No Primary [Primary Care Provider] - Disposition Disposition: Acute Care Hospital [facility]
[2021-12-17] MEDS: hydrALAZINE 20 MG/ML Vial IV (20:51)
[2021-12-17] MEDS: Labetalol (Prefilled) 20 MG/4 ML IV (22:49)
--- NOTE | 2021-12-17 23:35 | PCM.HP.STD ---
HPI - General General Date of Admission: 12/17/21 Date of Service: 12/17/21 Chief Complaint: Chest pain, very high blood pressure, shortness of breath HPI Narrative EDU WILCOX, is a 26 M who came to ED for chest pain. Patient is not a good historian and he does not state history spontaneously but needs a lot of cues like yes or no question. He felt sharp chest pain for last few days mainly on left side, without aggravating or relieving factor. Chest pain is localized, -11/2009 in intensity. Patient also reports shortness of breath with activity for last couple days, not related with chest pain. He states sometimes he gets short of breath without chest pain. No lightheadedness or syncope. Of note, patient was admitted on December 05 with syncope and similar chest pressure. He had elevated troponin at that time. 2D echo EF 60% At that time, it was discussed with endoscopy tech who advised outpatient follow-up with endoscopy tech for evaluation of coronary angiogram. Patient also had hypertensive emergency. Patient also has a high blood pressure, Triage BP 215/165. Patient had several rounds of IV hydralazine, IV labetalol and 1 dose of IV 1.25 mill enalapril. Blood pressure comes down for some time now and again gets high. Patient on 3 different antihypertensive medications. Patient also has high creatinine and during previous admission, [place] prison classification counselor was consulted. Patient denies any change in urine output or oliguria. No hematuria Twelve-lead EKG shows normal sinus rhythm 99 bpm, prolonged QTC 500 ms with LVH. Chest x-ray immediately reviewed shows no acute disease. Cardiomegaly. [facility] Medical History Bipolar 1 disorder Bleach ingestion CKD (chronic kidney disease), stage III CVA (cerebral vascular accident) GERD (gastroesophageal reflux disease) GI bleed Hypertension Irritable bowel syndrome (IBS) Overdose PUD (peptic ulcer disease) Stage 3b chronic kidney disease (CKD) Suicide gesture Tobacco abuse Home Medications aripiprazole 15 mg tablet (Abilify) 15 mg PO BID mood stabilizer 07/30/21 [History Last Taken 07/30/21] clonazepam 1 mg tablet (Klonopin) 1 mg PO DAILY mood stabilizer 07/30/21 [History Last Taken 07/29/21] clonazepam 1 mg tablet (Klonopin) 3 mg PO QHS mood stabilizer 07/30/21 [History Last Taken 07/29/21] levetiracetam 250 mg tablet (Keppra) 250 mg PO DAILY tremors 07/30/21 [History Last Taken 07/30/21] levetiracetam 500 mg tablet (Keppra) 500 mg PO QHS tremors 07/30/21 [History Last Taken 07/29/21] omeprazole 40 mg capsule,delayed release 40 mg PO DAILY gerd 07/30/21 [History Last Taken 07/30/21] prazosin 5 mg capsule 5 mg PO QHS blood pressure/ anxiety 07/30/21 [History Last Taken 07/29/21] trazodone 100 mg tablet 100 mg PO QHS insomnia 07/30/21 [History Last Taken 07/29/21] sucralfate 1 gram tablet 1 g PO 1HR_ACHS Check with primary doctor 12/05/21 [History Last Taken Unknown] metoprolol tartrate 25 mg tablet 25 mg PO BID #60 tabs 12/07/21 [Rx Last Taken Unknown] spironolactone 25 mg tablet 25 mg PO DAILY #30 tabs 12/07/21 [Rx Last Taken Unknown] Allergy/AdvReac Type Severity Reaction Status Date / Time No Known Allergies Allergy Verified 12/17/21 18:52 Family History Mother Diabetes Hypertension HLD (hyperlipidemia) Bipolar disorder Father Hypertension HLD (hyperlipidemia) Bipolar disorder Diabetes Surgical History H/O left knee surgery Social History household members: none Smoking Status: Current every day smoker tobacco type: e-cigarettes Smokeless tobacco user: other alcohol intake: current alcohol intake frequency: a few times a week substance use type: does not use ROS ROS Narrative Constitutional: Reports fatigue and weakness. Lower back pain on walking. HEENT: Reports systems reviewed and no addt'l complaints, except as documented Respiratory/Chest: As mentioned in HPI Gastrointestinal: No abdominal pain. Denies coffee ground emesis, hematemesis or vomiting Genitourinary: Denies burning urination or new urinary tract symptoms Musculoskeletal: Bilateral lower back pain, localized 7-8/10 intensity, precipitated and aggravated by walking Neurologic: Denies seizure-like activity Psychiatric: Bipolar disorder. On multiple antipsychotic medications. skin: No ulcer. No rash Endocrinology: Hypokalemia. Reports systems reviewed and no addt'l complaints, except as documented Hematologic/Lymphatic: Reports systems reviewed and no addt'l complaints, except as documented Rest 14 ROS are negative except as mentioned in HPI Vital Signs Vital Signs Vital Signs: 12/17/21 18:52 12/17/21 19:20 12/17/21 19:56 Temperature 96.7 F L Temperature Source Temporal Pulse Rate 109 H 100 Respiratory Rate 14 34 H Respiratory Effort Normal Non-Labored Blood Pressure 215/165 H 193/147 H Blood Pressure Mean 181 162 Pulse Ox 94 98 Oxygen Delivery Method Room Air Room Air 12/17/21 20:26 12/17/21 20:26 12/17/21 22:00 Temperature Temperature Source Pulse Rate 98 110 H Respiratory Rate 32 H Respiratory Effort Blood Pressure 197/148 H 171/132 H Blood Pressure Mean 164 145 Pulse Ox 99 Oxygen Delivery Method Room Air Room Air 12/17/21 22:01 12/17/21 22:48 12/17/21 23:33 Temperature Temperature Source Pulse Rate 109 H Respiratory Rate Respiratory Effort Blood Pressure 204/147 H 207/143 H 180/128 H Blood Pressure Mean 166 164 145 Pulse Ox Oxygen Delivery Method Weight Weight: 238 lb 1.588 oz Body Mass Index (BMI) 35.2 Physical Exam Narrative General: Alert, Oriented x3, Cooperative, obesity grade 3 BMI 34.8 kg/m? HEENT: Atraumatic, PERRLA, EOMI, Normocephalic Oral: No Gingival or Mucosal Lesions/ Ulcerations Neck: Supple, No JVD, Negative Carotid Bruits Lungs: Air entry diminished in bilateral lung bases. No crepitation/rhonchi Cardiovascular: Regular rate, Regular Rhythm, Normal S1, Normal S2, No murmurs Abdomen: Bowel Sounds Present, Soft, Non Tender, Non-Distended : No renal angle tenderness. No suprapubic tenderness. Extremities: Mild bilateral pitting edema, Capillary Refill Less than 3 Seconds Skin: No rashes, No breakdown Musculoskeletal: No Tenderness to Palpation of Joints or Extremities Neurological: Cranial nerves II-XII grossly intact, DTR 2+/4 and Symmetrical, Neuro grossly intact Psych/Mental Status: Blank look, flat affect. Bipolar disorder Results Lab / Micro Data Result Diagrams: 12/17/21 19:49 12/17/21 19:49 Labs: Laboratory Results - last 24 hr 12/17/21 19:49: WBC 10.6, RBC 4.45 L, Hgb 13.3, Hct 41.3, MCV 92.8, MCH 29.9, MCHC 32.2, RDW Std Deviation 48.0 H, RDW Coeff of [place] 14.3, Plt Count 309, MPV 11.3, Immature Gran % (Auto) 0.500, Neut % (Auto) 73.7 H, Lymph % (Auto) 14.9 L, [place] % (Auto) 7.9, Eos % (Auto) 2.1, Baso % (Auto) 0.9, Absolute Neuts (auto) 7.8 H, Absolute Lymphs (auto) 1.57, Nucleated RBC % 0 12/17/21 19:49: Sodium 137, Potassium 3.7, Chloride 106, Carbon Dioxide 19.0 L, Anion Gap 12, BUN 27 H, Creatinine 2.68 H, Estim Creat Clear Calc 41.04, Est GFR (MDRD) Af Amer 37 L, Est GFR (MDRD) Non-Af 30 L, BUN/Creatinine Ratio 10.1, Glucose 110 H, Calcium 8.9, Magnesium 2.0, Troponin I High Sens 83 H Radiology Impression Chest X-Ray 12/17/21 19:56 IMPRESSION: Cardiomegaly. No acute disease.. Electronically Signed: Andrew Mcgovern MD at 21:08 EDT , Assessment & Plan Assessment/Plan (1) Hypertensive emergency: (2) Elevated troponin: PLAN: Plan This 26-year-old gentleman admitted for chest pain, shortness of breath and hypertensive emergency with elevated troponin. 1. Atypical chest pain, mild elevated troponin: Patient is being admitted in PCU. Patient does not have classical angina characteristic of chest pain. RAUL risk score 1 for elevated troponin. 2D echo done EF 60%. Twelve-lead EKG shows repolarization changes with T wave inversion in lateral leads similar to previous EKG. If troponins are plateaued, stress test ordered for tomorrow a.m. cardiology consult if troponin has increasing trend. 2. Hypertensive emergency with history of resistant hypertension with elevated troponin, JULIANNA on CKD stage II and shortness of breath: Chest x-ray initially reviewed and does not show acute cardiopulmonary abnormality. Lisinopril and HCTZ discontinued due to JULIANNA. Patient on hydralazine, Coreg, isosorbide mononitrate, amlodipine and prazosin. Patient was started on spironolactone for hypokalemia last time continued. CTA was negative for SHARDA during previous admission. During previous visit patient was advised to follow-up with customer service dispatcher for concern of hyperaldosteronism. 3 JULIANNA on CKD stage II: Patient is admitted with creatinine 2.68 with baseline around 1.5. During previous admission patient was also admitted with 2.61 and it improved to 2.2. Consult [place] prison classification counselor. 4. Concern of possible demyelinating process: Patient said he had history of a stroke but stroke was ruled out as per discharge summary of 07/31/2021. There was concern of possible demyelinating process. Patient on Keppra. Follow-up with neurologist as an outpatient. 5. History of bipolar disorder: on abilify, trazodone and klonopin. Monitor EKG daily as patient QTC is prolonged at 500 ms. CODE STATUS: Full code unverified. Patient has history of bipolar disorder. Unclear whether he understands about advanced directive detail Laboratory Results 12/17/21 19:49: WBC 10.6, RBC 4.45 L, Hgb 13.3, Hct 41.3, MCV 92.8, MCH 29.9, MCHC 32.2, RDW Std Deviation 48.0 H, RDW Coeff of [place] 14.3, Plt Count 309, MPV 11.3, Immature Gran % (Auto) 0.500, Neut % (Auto) 73.7 H, Lymph % (Auto) 14.9 L, [place] % (Auto) 7.9, Eos % (Auto) 2.1, Baso % (Auto) 0.9, Absolute Neuts (auto) 7.8 H, Absolute Lymphs (auto) 1.57, Nucleated RBC % 0 12/17/21 19:49: Sodium 137, Potassium 3.7, Chloride 106, Carbon Dioxide 19.0 L, Anion Gap 12, BUN 27 H, Creatinine 2.68 H, Estim Creat Clear Calc 41.04, Est GFR (MDRD) Af Amer 37 L, Est GFR (MDRD) Non-Af 30 L, BUN/Creatinine Ratio 10.1, Glucose 110 H, Calcium 8.9, Magnesium 2.0, Troponin I High Sens 83 H 12/17/21 19:49: Phosphorus 5.3 H, Magnesium 1.9 Charges/Coding Visit Charges OBSV E&M: 68799 Initial observation care L3
[2021-12-18] VITALS (11 sets, daily range): BP systolic 128–189; BP diastolic 69–141; PULSE 85–102; RESP 16–20; TEMP 36.2–36.6; O2SAT 94–100; BMI 34.8
[2021-12-18 00:29] LABS: Magnesium 1.9 mg/dL (1.6-2.6); Phosphorus 5.3 mg/dL (2.5-4.9)
[2021-12-18] MEDS: Metoprolol Tartrate 25 MG Tablet PO (01:00)
[2021-12-18] MEDS: traZODone 100 MG Tablet PO (01:01)
[2021-12-18] MEDS: clonazePAM 1 MG Tablet 3 MG PO (01:04)
[2021-12-18] MEDS: Enalaprilat 1.25 MG/ML Vial IV (01:09)
[2021-12-18] MEDS: 0.9% Saline Lock 10 ML Syringe IV (01:16)
[2021-12-18] MEDS: hydrALAZINE 50 MG Tablet PO ×3 (02:22→13:42)
[2021-12-18] MEDS: Aspirin E.C. 81 MG Tablet PO (02:22)
[2021-12-18 02:23] LABS: Troponin-I HS 66 pg/mL (3.0-78.0)
[2021-12-18] MEDS: Carvedilol 25 MG Tablet PO ×2 (02:23→09:46)
[2021-12-18] MEDS: Isosorbide Mononitrate 60 MG Tablet PO (02:44)
--- NOTE | 2021-12-18 04:11 | EKG12_ITS ---
Test Reason : AM EKG Blood Pressure : / mmHG Vent. Rate : 088 BPM Atrial Rate : 088 BPM P-R Int : 132 ms QRS Dur : 086 ms QT Int : 476 ms P-R-T Axes : 036 050 224 degrees QTc Int : 575 ms Normal sinus rhythm Anterior infarct , age undetermined T wave abnormality, consider inferolateral ischemia Confirmed by SHABBIR HAYS, SYL ([id number]), editor map JARAD ESTRADA ([id number]) on 12/20/2021 2:05:42 PM Referred By: Confirmed By:SYL SHEA MD
[2021-12-18 05:19] LABS: Absolute Neutrophil Count 6.6 X10^3/uL (2.0-7.7); Basophil# 0.07 X10^3/uL; Basophil% 0.8 % (0-1); Eosinophil# 0.21 X10^3/uL; Eosinophils% 2.4 % (0-5); Hematocrit 37.9 % (40-54); Hemoglobin 12.2 g/dL (13.0-16.5); Lymphocyte % 14.6 % (19-41); Mean Corp Hgb Conc 32.2 g/dL (32-36); Mean Corpuscular Hgb 29.8 pg (27.0-32.0); Mean Corpuscular Volume 92.4 fL (80-94); Mean Platelet Vol. 10.6 fl (6.2-12.0); Monocyte# 0.77 X10^3/uL; Monocyte% 8.6 % (0-10); NRBC Flagged by Analyzer 0 % (0-5); Neutrophil # 6.55 X10^3/uL (2.7-7.7); Neutrophil % 73.3 % (47-70); Platelet Count 288 K/mm3 (150-450); RBC Distribution Width CV 14.4 % (11.6-14.6); RBC Distribution Width SD 47.7 fl (35.1-43.9); White Blood Count 8.9 K/mm3 (4.4-11.0)
[2021-12-18 05:39] LABS: Troponin-I HS 64 pg/mL (3.0-78.0)
[2021-12-18 08:20] LABS: Anion Gap 7 (5-15); BUN 23 mg/dL (7-18); BUN/Creat Ratio 9.5 RATIO (10-20); Calcium,Total 8.3 mg/dL (8.5-10.1); Chloride 108 mmol/L (98-107); Cholesterol 185 mg/dL (200); Creatinine, Serum 2.41 mg/dL (0.70-1.30); EST Glomerular Filtration Rate 34 mL/min (>60); Est Glom Filt Rate - Afr Amer 41 mL/min (>60); Estimated Creatinine Clearance 45.63 ml/min; Glucose 94 mg/dL (74-106); High Density Lipoprotein 50 mg/dL; Potassium 3.7 mmol/L (3.5-5.1); Sodium Level 138 mmol/L (136-145); Thyroid Stim Hormone (TSH) 3.37 uIU/mL (0.358-3.74); Triglycerides 97 mg/dL; Troponin-I HS 57 pg/mL (3.0-78.0); Very Low Density Lipoprotein 19 mg/dL (5-40)
--- NOTE | 2021-12-18 08:48 | STRESSREP ---
Stress Test Report Date: 12-18-2021 Procedure: Pharmacologic stress nuclear imaging study Indications: Chest pain; hypertension; chronic renal insufficiency Consent: Per the patient Procedure: The patient underwent pharmacologic (Regadenoson 0.4mg ) evaluation with a peak heart rate of 94 beats per minute (48%predicted maximal heart rate) and a peak blood pressure of 172/114 mmHg. The baseline ECG demonstrated normal sinus rhythm; poor R wave progression; T wave abnormality: Consider myocardial ischemia. The peak pharmacologic ECG demonstrated no obvious ECG changes. There were no cardiac dysrhythmias pretest, during pharmacologic infusion, or recovery. There was no complaint of chest discomfort during pharmacologic infusion or recovery. The examination was discontinued secondary to completion of protocol. Impression: 1. Pharmacologic (Regadenoson) evaluation 2. Peak pharmacologic ECG with no obvious ECG changes. 3. There were no cardiac dysrhythmias pretest, during pharmacologic infusion, or recovery. 4. Nuclear images pending Myocardial perfusion imaging study: Technique: The patient was injected with 13.5 millicuries of technetium 99m Cardiolite and subsequently rest SPECT Cardiolite nuclear imaging was obtained in the horizontal long, vertical long, and short axis views. The patient underwent pharmacologic (Regadenoson) evaluation with a peak heart rate of 94 beats per minute (48% percent predicted maximal heart rate) and a peak blood pressure of 172/114 mmHg. The patient was injected with 41.8 millicuries of technetium 99m Cardiolite and subsequently stress SPECT Cardiolite nuclear imaging was obtained in the horizontal long, vertical long, and short axis views. A gated Cardiolite study at peak stress was obtained. Interpretation: Rest and stress SPECT Cardiolite nuclear imaging status post realignment, normalization, and attenuation correction demonstrate relative uniform tracer uptake and myocardial perfusion appearing within normal limits. There is end systolic thickening and brightening. The gated Cardiolite study demonstrates myocardial thickening and inward wall motion. The reported LVEF is 44%. Impression: 1. Relative uniform tracer uptake and myocardial perfusion appearing within normal limits. 2. The gated Cardiolite study reports an LVEF of 44%. This note was generated with [employer] software. It may contain incorrect words, spelling, and punctuation that were not noted in checking the note before signing.
[2021-12-18] MEDS: Pantoprazole Sodium 40 MG Tablet PO (09:46)
[2021-12-18] MEDS: ARIPiprazole 5 MG Tablet 15 MG PO (09:46)
[2021-12-18] MEDS: levETIRAcetam 250 MG Tablet PO (09:51)
--- NOTE | 2021-12-18 10:13 | PCM.CONS.R ---
Assessment & Plan Assessment/Plan (1) Acute kidney injury: PLAN: There has been fluctuation of renal function in the past 2 months. Serum creatinine has been anywhere between 2.20 up to 2.69 mg/dL. I suspect that the current renal function may be his new baseline. Renal function likely deteriorated over the past 6 months because of uncontrolled hypertension. So, serum creatinine of 2.4 to 2.7 mg/dL may be a new baseline for him. The patient is not uremic, so there is no need for kidney replacement therapy at this point. The patient does not appear to be overtly volume overloaded, so we can push fluid to see if there is a component of JULIANNA from volume depletion since he had nausea, vomiting and diarrhea prior to admission. Continue effort to treat hypertension although there is no galaviz to getting the patient to goal of 130/80 or less. I will check urine protein to creatinine ratio. If renal function stabilizes in the setting of high urine protein, I will consider using RAAS inhibitor for BP control. We will recheck renal function, volume status, acid-base status and electrolytes tomorrow. Current medications are reviewed, and they are appropriately dosed for his renal function. (2) Chronic kidney disease, stage 3b: PLAN: Baseline serum creatinine is around 2.20 mg/dL. Estimated GFR is around 41 mL/min on 12/07/2021. Suspect CKD is secondary to hypertensive nephropathy. However, current renal function may be close to baseline as well. See above. (3) HTN (hypertension): PLAN: BP is much better controlled today compared to on presentation. Continue current medications. The patient is taking doxazosin, carvedilol, and hydralazine. (4) Chest pain: PLAN: The patient is supposed to be getting a stress test today. He may need cardiology evaluation if stress test is abnormal. Continue to effort to treat his blood pressure. HPI Consult Data Date of Consult: 12/18/21 HPI Narrative Reason for Consultation: JULIANNA on CKD HPI Narrative: The patient is a 18-year-old man with past history of poorly controlled hypertension (he is on metroprolol, prazosin, and spironolactone at home), bipolar disorder, GERD, irritable bowel syndrome, peptic ulcer disease, and chronic kidney disease stage IIIb. The patient was recently admitted to the hospital between 12/05/2021 until 12/07/2021 with syncope, chest pressure and hypertensive emergency. He was seen by our service during this past admission for JULIANNA on CKD. Serum creatinine peaked at 2.69 mg/dL during the last admission with gradual improvement to 2.20 mg/dL by the time of discharge on 12/07/2021. Because of severe hypertension and hypokalemia, aldosterone level was sent on 12/06/2021. Aldosterone level was less than 1.0 ng/dL. The patient presents to the hospital again on 12/17/2021 with 2 to 3-day history of left-sided chest pain which was described as sharp. Pain was 6-7 out of 10 in severity. He complains of shortness of breath with activities although this is unrelated to chest pain. BP is high on presentation at 215/165 as well. Nephrology is asked to see the patient because of acute kidney injury on chronic kidney disease. Serum creatinine had increased to 2.68 mg/dL on presentation on 12/17/2021 at 7:49 PM. Serum creatinine is slightly better today at 2.41 mg/dL. The patient denies current chest pain. Chest pain has been intermittent at home. He also had palpitation which has resolved for now. Prior to admission, the patient does report nausea, occasional vomiting and diarrhea. There has been no recurrence of vomiting or diarrhea since admission. The patient complains of lower extremity edema which has slightly increased compared to the last admission. He denies missing antihypertensive although he was unsure whether he threw up any of his medication when he vomited. He denies using NSAIDs on a regular basis. [facility] Medical History Bipolar 1 disorder Bleach ingestion CKD (chronic kidney disease), stage III CVA (cerebral vascular accident) GERD (gastroesophageal reflux disease) GI bleed Hypertension Irritable bowel syndrome (IBS) Overdose PUD (peptic ulcer disease) Stage 3b chronic kidney disease (CKD) Suicide gesture Tobacco abuse Home Medications aripiprazole 15 mg tablet (Abilify) 15 mg PO BID mood stabilizer 07/30/21 [History Last Taken 07/30/21] clonazepam 1 mg tablet (Klonopin) 1 mg PO DAILY mood stabilizer 07/30/21 [History Last Taken 07/29/21] clonazepam 1 mg tablet (Klonopin) 3 mg PO QHS mood stabilizer 07/30/21 [History Last Taken 07/29/21] levetiracetam 250 mg tablet (Keppra) 250 mg PO DAILY tremors 07/30/21 [History Last Taken 07/30/21] levetiracetam 500 mg tablet (Keppra) 500 mg PO QHS tremors 07/30/21 [History Last Taken 07/29/21] omeprazole 40 mg capsule,delayed release 40 mg PO DAILY gerd 07/30/21 [History Last Taken 07/30/21] prazosin 5 mg capsule 5 mg PO QHS blood pressure/ anxiety 07/30/21 [History Last Taken 07/29/21] trazodone 100 mg tablet 100 mg PO QHS insomnia 07/30/21 [History Last Taken 07/29/21] sucralfate 1 gram tablet 1 g PO 1HR_ACHS Check with primary doctor 12/05/21 [History Last Taken Unknown] metoprolol tartrate 25 mg tablet 25 mg PO BID #60 tabs 12/07/21 [Rx Last Taken Unknown] spironolactone 25 mg tablet 25 mg PO DAILY #30 tabs 12/07/21 [Rx Last Taken Unknown] Allergy/AdvReac Type Severity Reaction Status Date / Time No Known Allergies Allergy Verified 12/17/21 18:52 Family History Mother Diabetes Hypertension HLD (hyperlipidemia) Bipolar disorder Father Hypertension HLD (hyperlipidemia) Bipolar disorder Diabetes Surgical History H/O left knee surgery Social History household members: none Smoking Status: Current every day smoker tobacco type: e-cigarettes Smokeless tobacco user: other alcohol intake: current alcohol intake frequency: a few times a week substance use type: does not use ROS ROS Narrative 02/14 ROS was done. They are otherwise noncontributory aside from what is documented in HPI. Physical Exam Narrative General: Alert and oriented x3, no apparent distress H EENT: Normocephalic, atraumatic. Mucous membrane moist without erythema. PERRLA, EOMI. Hearing is intact. Neck: Supple, no JVD. Lungs: Clear to auscultation bilaterally. Abdomen: Soft, nontender, no guarding or rebound. Extremities: No clubbing or cyanosis. There is 1+ edema. Neurologic: No focal neurologic deficits. Skin: Warm and dry. Skin is without lesions or rash. Psychiatric: Normal mood/affect. Lab / Micro Data Result Diagrams: 12/18/21 05:10 12/18/21 07:45 Labs: Laboratory Results - last 24 hr 12/17/21 19:49: WBC 10.6, RBC 4.45 L, Hgb 13.3, Hct 41.3, MCV 92.8, MCH 29.9, MCHC 32.2, RDW Std Deviation 48.0 H, RDW Coeff of [place] 14.3, Plt Count 309, MPV 11.3, Immature Gran % (Auto) 0.500, Neut % (Auto) 73.7 H, Lymph % (Auto) 14.9 L, [place] % (Auto) 7.9, Eos % (Auto) 2.1, Baso % (Auto) 0.9, Absolute Neuts (auto) 7.8 H, Absolute Lymphs (auto) 1.57, Nucleated RBC % 0 12/17/21 19:49: Sodium 137, Potassium 3.7, Chloride 106, Carbon Dioxide 19.0 L, Anion Gap 12, BUN 27 H, Creatinine 2.68 H, Estim Creat Clear Calc 41.04, Est GFR (MDRD) Af Amer 37 L, Est GFR (MDRD) Non-Af 30 L, BUN/Creatinine Ratio 10.1, Glucose 110 H, Calcium 8.9, Magnesium 2.0, Troponin I High Sens 83 H 12/17/21 19:49: Phosphorus 5.3 H, Magnesium 1.9 12/18/21 02:00: Troponin I High Sens 66 12/18/21 05:10: WBC 8.9, RBC 4.10 L, Hgb 12.2 L, Hct 37.9 L, MCV 92.4, MCH 29.8, MCHC 32.2, RDW Std Deviation 47.7 H, RDW Coeff of [place] 14.4, Plt Count 288, MPV 10.6, Immature Gran % (Auto) 0.300, Neut % (Auto) 73.3 H, Lymph % (Auto) 14.6 L, [place] % (Auto) 8.6, Eos % (Auto) 2.4, Baso % (Auto) 0.8, Absolute Neuts (auto) 6.6, Absolute Lymphs (auto) 1.30, Nucleated RBC % 0 12/18/21 05:10: Troponin I High Sens 64 12/18/21 07:45: Sodium 138, Potassium 3.7, Chloride 108 H, Carbon Dioxide 23.0, Anion Gap 7, BUN 23 H, Creatinine 2.41 H, Estim Creat Clear Calc 45.63, Est GFR (MDRD) Af Amer 41 L, Est GFR (MDRD) Non-Af 34 L, BUN/Creatinine Ratio 9.5 L, Glucose 94, Calcium 8.3 L, Troponin I High Sens 57, Triglycerides 97, Cholesterol 185, LDL Cholesterol 116, VLDL Cholesterol 19, HDL Cholesterol 50, TSH 3.37 Radiology Impression Chest X-Ray 12/17/21 19:56 IMPRESSION: Cardiomegaly. No acute disease.. Electronically Signed: Andrew Mcgovern MD at 21:08 EDT ,
[2021-12-18] MEDS: clonazePAM 1 MG Tablet PO (10:25)
[2021-12-18] MEDS: Sucralfate 1 GM Tablet PO (10:26)
--- NOTE | 2021-12-18 12:56 | PN.HOSP_ITS ---
Objective Data Objective Data Vital Signs: Vital Signs Temp Pulse Resp BP Pulse Ox O2 Del Method 97.2 F L 89 18 128/69 H 94 Room Air 12/18/21 11:45 12/18/21 11:45 12/18/21 11:45 12/18/21 11:45 12/18/21 11:45 12/18/21 11:45 Oxygen Delivery Method Room Air Weight: 236 lb 8.896 oz Body Mass Index (BMI) 34.8 Intake & Output: Intake and Output for Last 24 Hours 12/16/21 12/17/21 12/18/21 23:59 23:59 23:59 Intake Total 650 / 650 Balance 650 / 650 Lab / Micro Data Result Diagrams: 12/18/21 05:10 12/18/21 07:45 Labs: Laboratory Results - last 24 hr 12/17/21 19:49: WBC 10.6, RBC 4.45 L, Hgb 13.3, Hct 41.3, MCV 92.8, MCH 29.9, MCHC 32.2, RDW Std Deviation 48.0 H, RDW Coeff of [place] 14.3, Plt Count 309, MPV 11.3, Immature Gran % (Auto) 0.500, Neut % (Auto) 73.7 H, Lymph % (Auto) 14.9 L, [place] % (Auto) 7.9, Eos % (Auto) 2.1, Baso % (Auto) 0.9, Absolute Neuts (auto) 7.8 H, Absolute Lymphs (auto) 1.57, Nucleated RBC % 0 12/17/21 19:49: Sodium 137, Potassium 3.7, Chloride 106, Carbon Dioxide 19.0 L, Anion Gap 12, BUN 27 H, Creatinine 2.68 H, Estim Creat Clear Calc 41.04, Est GFR (MDRD) Af Amer 37 L, Est GFR (MDRD) Non-Af 30 L, BUN/Creatinine Ratio 10.1, Glucose 110 H, Calcium 8.9, Magnesium 2.0, Troponin I High Sens 83 H 12/17/21 19:49: Phosphorus 5.3 H, Magnesium 1.9 12/18/21 02:00: Troponin I High Sens 66 12/18/21 05:10: WBC 8.9, RBC 4.10 L, Hgb 12.2 L, Hct 37.9 L, MCV 92.4, MCH 29.8, MCHC 32.2, RDW Std Deviation 47.7 H, RDW Coeff of [place] 14.4, Plt Count 288, MPV 10.6, Immature Gran % (Auto) 0.300, Neut % (Auto) 73.3 H, Lymph % (Auto) 14.6 L, [place] % (Auto) 8.6, Eos % (Auto) 2.4, Baso % (Auto) 0.8, Absolute Neuts (auto) 6.6, Absolute Lymphs (auto) 1.30, Nucleated RBC % 0 12/18/21 05:10: Troponin I High Sens 64 12/18/21 07:45: Sodium 138, Potassium 3.7, Chloride 108 H, Carbon Dioxide 23.0, Anion Gap 7, BUN 23 H, Creatinine 2.41 H, Estim Creat Clear Calc 45.63, Est GFR (MDRD) Af Amer 41 L, Est GFR (MDRD) Non-Af 34 L, BUN/Creatinine Ratio 9.5 L, Glucose 94, Calcium 8.3 L, Troponin I High Sens 57, Triglycerides 97, Cholesterol 185, LDL Cholesterol 116, VLDL Cholesterol 19, HDL Cholesterol 50, TSH 3.37 Radiography Diagnostic Testing: Radiology Impression Chest X-Ray 12/17/21 19:56 IMPRESSION: Cardiomegaly. No acute disease.. Electronically Signed: Andrew Mcgovern MD at 21:08 EDT Reading Location ID and State: [address] [place] [address] , Service support ,
--- NOTE | 2021-12-18 13:22 | DCINST_ITS ---
Discharge Instructions Diet Discharge Diet: Low fat / Low cholesterol and Renal Diet Activity Discharge Activity: Return to Normal Activity Weight Bearing Status: Weight bearing as tolerated Dressing / Incision Call your doctor if you observe: Fever of 101 or Higher, Shortness of breath, Dizziness, Swelling in the ankles, Chest pain and Increased palpitations (irregular heartbeat) Follow Up Care Test Results: Test results from this visit will be discussed in further detail at your follow- up appointment, if applicable. Discharge Plan Admission Admit Date/Time: 12/17/21 23:28 Primary Reason for Your Visit: chest pain, uncontrolled hypertension Attending Provider: Vibha Goldsmith Primary Care Provider: Care Physician,No Primary Consulting Providers: Alysha Rico ; Robin Joya Discharge Orders/Prescriptions Prescriptions: New hydralazine 50 mg Tablet 50 mg PO TID Qty: 90 1RF Continued levetiracetam [Keppra] 500 mg Tablet 500 mg PO QHS clonazepam [Klonopin] 1 mg Tablet 1 mg PO DAILY clonazepam [Klonopin] 1 mg Tablet 3 mg PO QHS prazosin 5 mg Capsule 5 mg PO QHS Rx Instructions: DOSE UNKNOWN levetiracetam [Keppra] 250 mg Tablet 250 mg PO DAILY trazodone 100 mg Tablet 100 mg PO QHS aripiprazole [Abilify] 15 mg Tablet 15 mg PO BID omeprazole 40 mg Capsule,Delayed Release(Dr/Ec) 40 mg PO DAILY sucralfate 1 gram tablet 1 g PO 1HR_ACHS metoprolol tartrate 25 mg Tablet 25 mg PO BID Qty: 60 0RF spironolactone 25 mg Tablet 25 mg PO DAILY Qty: 30 0RF Referrals / Follow Up: Rosa Barnes MD [Med Staff - Active Staff] - Within 1 Month (see to establish PCP relationship) Soni Sanchez MD [Med Staff - Consulting] - Within 2 Weeks Care Physician,No Primary [Primary Care Provider] - Disposition Disposition (needs filled in before D/C Order can be placed): Home, Self Care
--- NOTE | 2021-12-18 13:26 | DS.PCM_ITS ---
Providers Date of Admission: 12/17/21 Date of Discharge: 12/18/21 Primary Care Physician: Aleena Primary Care Phys Consultations 12/18/21 06:24 Consult: Nephrology Routine Consulting Provider: Alysha Rico Reason for Consult: luis on ckd, hypertensive emergency EMERGENT Consult: No MD Notified: Yes Date Notified: 12/18/21 Time Notified: 06:24 Method of Notification: Verbal Reason For Visit: ATYPICAL CHEST PAIN Diagnosis Discharge Diagnosis (1) Acute kidney injury: Status: Acute Code(s): N17.9 - Acute kidney failure, unspecified (2) Chronic kidney disease, stage 3b: Status: Acute Code(s): N18.32 - Chronic kidney disease, stage 3b (3) HTN (hypertension): Status: Chronic Code(s): I10 - Essential (primary) hypertension (4) Chest pain: Status: Acute Code(s): R07.9 - Chest pain, unspecified Medications at Discharge Home Medications aripiprazole 15 mg tablet (Abilify) 15 mg PO BID mood stabilizer 07/30/21 clonazepam 1 mg tablet (Klonopin) 1 mg PO DAILY mood stabilizer 07/30/21 clonazepam 1 mg tablet (Klonopin) 3 mg PO QHS mood stabilizer 07/30/21 levetiracetam 250 mg tablet (Keppra) 250 mg PO DAILY tremors 07/30/21 levetiracetam 500 mg tablet (Keppra) 500 mg PO QHS tremors 07/30/21 omeprazole 40 mg capsule,delayed release 40 mg PO DAILY gerd 07/30/21 prazosin 5 mg capsule 5 mg PO QHS blood pressure/ anxiety 07/30/21 trazodone 100 mg tablet 100 mg PO QHS insomnia 07/30/21 sucralfate 1 gram tablet 1 g PO 1HR_ACHS Check with primary doctor 12/05/21 metoprolol tartrate 25 mg tablet 25 mg PO BID #60 tabs 12/07/21 spironolactone 25 mg tablet 25 mg PO DAILY #30 tabs 12/07/21 hydralazine 50 mg tablet 50 mg PO TID #90 tabs 12/18/21 Hospital Course Operations None Procedures Nuclear stress test Summary of Care Provided Minutes Spent on Discharge: 45 Hospital Course: Patient is a 26-year-old male with a past medical history as outlined was admitted through the ED on 12/17/2021 with a complaint of intermittent sharp chest pain. He also checked his blood pressure noticed that it was very very h igh. He denies any palpitations or dizziness, any lightheadedness, any swelling in his legs, any nausea or vomiting. Patient had recently been admitted with similar complaints and was managed for hypertensive emergency then. He had been on just prazosin and was discharged on additional blood pressure medications. He claimed he had been compliant with his medication though he says he was out of his lisinopril currently. On admission his blood pressure was 215/165. He was given several doses of IV hydralazine, IV labetalol and IV enalapril. He was admitted and managed for hypertensive emergency as well as chest pain rule out ACS. He had stress test on 12/18/2021 which was negative for any evidence of ischemia. Nephrology was also consulted on account of elevated creatinine. Patient did have underlying CKD and per nephrology, the increase in his creatinine was likely due to his new baseline creatinine. Patient's blood pressure improved and trended down to the 130s at time of discharge. Of note during his previous admission, due to markedly elevated blood pressure and hypokalemia there was concern about hyperaldosteronism. [place] aldosterone ratio done however showed no evidence of this. Patient was counseled to follow-up with endocrinology during that previous admission. Patient remained stable and was discharged home this time on p.o. prazosin, p.o. hydralazine, p.o. metoprolol and spironolactone. He is to follow-up with his primary care doctor and nephrology and also to follow-up with endocrinology. Patient was seen and examined prior to discharge. He had no active complaints and had an uneventful night. Review of systems was otherwise negative. Labs and vitals reviewed. Home medication reviewed and reconciled. Physical Exam Const alert, oriented x3 and no apparent distress General Appearance: cooperative, comfortable and well kempt Orientation / Consciousness: awake Exam Limitations: no limitations HEENT normocephalic, head/scalp atraumatic, hearing grossly normal bilaterally and moist oral mucous membranes Mouth: oral and palatal mucosa normal Eyes PERRL, EOMs intact bilaterally and conjunctivae normal Neck no lymphadenopathy, supple and no JVD Resp normal respiratory effort, no retractions, no use of accessory muscles and clear to auscultation bilaterally Cardio regular rate, regular rhythm, S1 normal heart sound, S2 normal heart sound and no murmurs GI normal to inspection, nondistended, normoactive bowel sounds, soft to palpation, non-tender and non-distended Extremity normal to inspection, full ROM and no clubbing, cyanosis or edema General Extremity: edema Skin no rashes or lesions noted Neuro oriented x3, CN's II-XII intact bilaterally, moves all extremities and no focal motor deficits Sensorium / Orientation: awake and alert Speech: speech normal Motor Exam: strength 5/5 throughout Psych affect normal Weight / BMI Weight Weight: 236 lb 8.896 oz Body Mass Index (BMI) 34.8 ABG / Lab / Microbiology Data Result Diagrams: 12/18/21 05:10 12/18/21 07:45 Laboratory: Laboratory Results - last 24 hr 12/17/21 19:49: WBC 10.6, RBC 4.45 L, Hgb 13.3, Hct 41.3, MCV 92.8, MCH 29.9, MCHC 32.2, RDW Std Deviation 48.0 H, RDW Coeff of [place] 14.3, Plt Count 309, MPV 11.3, Immature Gran % (Auto) 0.500, Neut % (Auto) 73.7 H, Lymph % (Auto) 14.9 L, [place] % (Auto) 7.9, Eos % (Auto) 2.1, Baso % (Auto) 0.9, Absolute Neuts (auto) 7.8 H, Absolute Lymphs (auto) 1.57, Nucleated RBC % 0 12/17/21 19:49: Sodium 137, Potassium 3.7, Chloride 106, Carbon Dioxide 19.0 L, Anion Gap 12, BUN 27 H, Creatinine 2.68 H, Estim Creat Clear Calc 41.04, Est GFR (MDRD) Af Amer 37 L, Est GFR (MDRD) Non-Af 30 L, BUN/Creatinine Ratio 10.1, Glucose 110 H, Calcium 8.9, Magnesium 2.0, Troponin I High Sens 83 H 12/17/21 19:49: Phosphorus 5.3 H, Magnesium 1.9 12/18/21 02:00: Troponin I High Sens 66 12/18/21 05:10: WBC 8.9, RBC 4.10 L, Hgb 12.2 L, Hct 37.9 L, MCV 92.4, MCH 29.8, MCHC 32.2, RDW Std Deviation 47.7 H, RDW Coeff of [place] 14.4, Plt Count 288, MPV 10.6, Immature Gran % (Auto) 0.300, Neut % (Auto) 73.3 H, Lymph % (Auto) 14.6 L, [place] % (Auto) 8.6, Eos % (Auto) 2.4, Baso % (Auto) 0.8, Absolute Neuts (auto) 6.6, Absolute Lymphs (auto) 1.30, Nucleated RBC % 0 12/18/21 05:10: Troponin I High Sens 64 12/18/21 07:45: Sodium 138, Potassium 3.7, Chloride 108 H, Carbon Dioxide 23.0, Anion Gap 7, BUN 23 H, Creatinine 2.41 H, Estim Creat Clear Calc 45.63, Est GFR (MDRD) Af Amer 41 L, Est GFR (MDRD) Non-Af 34 L, BUN/Creatinine Ratio 9.5 L, Glucose 94, Calcium 8.3 L, Troponin I High Sens 57, Triglycerides 97, Cholesterol 185, LDL Cholesterol 116, VLDL Cholesterol 19, HDL Cholesterol 50, TSH 3.37 Radiography Diagnostic Testing: Radiology Impression Chest X-Ray 12/17/21 19:56 IMPRESSION: Cardiomegaly. No acute disease.. Electronically Signed: Andrew Mcgovern MD at 21:08 EDT Reading Location ID and State: [address] [place] [address] , Service support , D/C Instructions Discharge Diet: Low fat / Low cholesterol and Renal Diet Weight Bearing Status: Weight bearing as tolerated Call your doctor if you observe: Fever of 101 or Higher, Shortness of breath, Dizziness, Swelling in the ankles, Chest pain and Increased palpitations (irregular heartbeat) Meaningful Use Info Meaningful Use Diagnoses (Choose all that apply): None applicable Discharge Plan Admission Admit Date/Time: 12/17/21 23:28 Primary Reason for Your Visit: chest pain, uncontrolled hypertension Attending Provider: Vibha Goldsmith Primary Care Provider: Care Physician,No Primary Consulting Providers: Alysha Rico ; Robin Joya Discharge Orders/Prescriptions Prescriptions: New hydralazine 50 mg Tablet 50 mg PO TID Qty: 90 1RF Continued levetiracetam [Keppra] 500 mg Tablet 500 mg PO QHS clonazepam [Klonopin] 1 mg Tablet 1 mg PO DAILY clonazepam [Klonopin] 1 mg Tablet 3 mg PO QHS prazosin 5 mg Capsule 5 mg PO QHS Rx Instructions: DOSE UNKNOWN levetiracetam [Keppra] 250 mg Tablet 250 mg PO DAILY trazodone 100 mg Tablet 100 mg PO QHS aripiprazole [Abilify] 15 mg Tablet 15 mg PO BID omeprazole 40 mg Capsule,Delayed Release(Dr/Ec) 40 mg PO DAILY sucralfate 1 gram tablet 1 g PO 1HR_ACHS metoprolol tartrate 25 mg Tablet 25 mg PO BID Qty: 60 0RF spironolactone 25 mg Tablet 25 mg PO DAILY Qty: 30 0RF Referrals / Follow Up: Rosa Barnes MD [Med Staff - Active Staff] - Within 1 Month (see to establish PCP relationship) Soni Sanchez MD [Med Staff - Consulting] - Within 2 Weeks Care Physician,No Primary [Primary Care Provider] - Disposition Disposition (needs filled in before D/C Order can be placed): Home, Self Care Charges/Coding Visit Charges OBSV E&M: 89822 Observation care discharge
== END 2021-12-18 13:21 | disposition home or self-care (01) ==
LOC: ED 23:38 → PCU 12-18 00:19
PROVIDERS: Admitting Provider Internal Medicine; Emergency Provider Emergency Medicine; Visit Provider Student in an Organized Health Care Education/Training Program
DX: N17.9 Acute kidney failure, unspecified (principal); F31.9 Bipolar disorder, unspecified; N18.32 Chronic kidney disease, stage 3b; I16.1 Hypertensive emergency; R07.9 Chest pain, unspecified; R60.0 Localized edema; K21.9 Gastro-esophageal reflux disease without esophagitis; I12.9 Hypertensive chronic kidney disease with stage 1 through stage 4 chronic kidney disease, or unspecified chronic kidney disease; R77.8 Other specified abnormalities of plasma proteins; E87.6 Hypokalemia; R06.02 Shortness of breath; F17.290 Nicotine dependence, other tobacco product, uncomplicated; R19.7 Diarrhea, unspecified; Z79.899 Other long term (current) drug therapy
CPT/HCPCS: 36415; 71045; 78452; 80048; 80061; 83735; 84100; 84443; 84484; 85025; 93005; 93017; 96374; 96375; 96376; 99218; 99251; 99285; 99406; A9500; A4216; G0378; G0463; J2785

== ENCOUNTER 2022-01-03 03:08 | Emergency (ER) | payer SELFPAY ==
[2022-01-03 03:10] VITALS: BP 212/160; PULSE 111; RESP 18; TEMP 36.7; O2SAT 100; BMI 35.4
--- NOTE | 2022-01-03 03:33 | EKG12_ITS ---
Test Reason : DYSRHYTHMIA Blood Pressure : / mmHG Vent. Rate : 108 BPM Atrial Rate : 108 BPM P-R Int : 138 ms QRS Dur : 088 ms QT Int : 390 ms P-R-T Axes : 038 007 062 degrees QTc Int : 522 ms Sinus tachycardia Nonspecific ST and T wave abnormality Prolonged QT Poor R wave progression Abnormal ECG Confirmed by NAT HAYS, ALBERTO ([id number]), writer editor JARAD ESTRADA ([id number]) on 01/04/2022 7:37:08 AM Referred By: LUIGI Confirmed By:ALBERTO JOHNS MD
--- NOTE | 2022-01-03 03:35 | EX.ED.DYSGE1 ---
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 He states he pushed hard to get done quickly. Just afterwards while going to wash his hand he started getting lightheaded, this got worse and he passed out and woke up on the floor. He denies any injury. He is in very mild headache, does not feel like he hit his head on anything. 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 He was seen here in the emergency department and admitted temporarily. He is on 3 different blood pressure medications, he has been compliant with all of that. His blood pressure was very high when he was here last time as it is this time. He denies any drug use. States he feels fine right now. [facility] Medical History Acute kidney injury Bipolar 1 disorder Bleach ingestion Chronic kidney disease, stage 3b CKD (chronic kidney disease), stage III CVA (cerebral vascular accident) GERD (gastroesophageal reflux disease) GI bleed HTN (hypertension) Hypertension Irritable bowel syndrome (IBS) Overdose PUD (peptic ulcer disease) Stage 3b chronic kidney disease (CKD) Suicide gesture Tobacco abuse Home Medications aripiprazole 15 mg tablet (Abilify) 15 mg PO BID mood stabilizer 07/30/21 [History Last Taken 07/30/21] clonazepam 1 mg tablet (Klonopin) 1 mg PO DAILY mood stabilizer 07/30/21 [History Last Taken 07/29/21] clonazepam 1 mg tablet (Klonopin) 3 mg PO QHS mood stabilizer 07/30/21 [History Last Taken 07/29/21] levetiracetam 250 mg tablet (Keppra) 250 mg PO DAILY tremors 07/30/21 [History Last Taken 07/30/21] levetiracetam 500 mg tablet (Keppra) 500 mg PO QHS tremors 07/30/21 [History Last Taken 07/29/21] omeprazole 40 mg capsule,delayed release 40 mg PO DAILY gerd 07/30/21 [History Last Taken 07/30/21] prazosin 5 mg capsule 5 mg PO QHS blood pressure/ anxiety 07/30/21 [History Last Taken 07/29/21] sucralfate 1 gram tablet 1 g PO 1HR_ACHS Check with primary doctor 12/05/21 [History Last Taken Unknown] metoprolol tartrate 25 mg tablet 25 mg PO BID #60 tabs 12/07/21 [Rx Last Taken Unknown] spironolactone 25 mg tablet 25 mg PO DAILY #30 tabs 12/07/21 [Rx Last Taken Unknown] hydralazine 50 mg tablet 50 mg PO TID #90 tabs 12/18/21 [Rx Last Taken Unknown] Allergy/AdvReac Type Severity Reaction Status Date / Time No Known Allergies Allergy Verified 01/03/22 03:13 Family History Mother Diabetes Hypertension HLD (hyperlipidemia) Bipolar disorder Father Hypertension HLD (hyperlipidemia) Bipolar disorder Diabetes Surgical History H/O left knee surgery Social History household members: none Smoking Status: Current every day smoker tobacco type: e-cigarettes Smokeless tobacco user: other alcohol intake: current alcohol intake frequency: a few times a week substance use type: does not use ROS ROS ED Constitutional Constitutional ED: Denies chills or fever(s) Eyes Eyes: Denies change in vision or diplopia ENT ENT ED: Denies rhinorrhea or sore throat Cardiovascular Cardiovascular: Denies chest pain or palpitations Respiratory/Chest Respiratory/Chest: Denies cough or dyspnea Gastrointestinal Gastrointestinal: Denies abdominal pain, diarrhea, nausea or vomiting Genitourinary Genitourinary ED: Denies dysuria or hematuria Musculoskeletal Musculoskeletal: Denies back pain or neck pain Integumentary Denies abscess or rash Neurologic Neurologic: Reports as per HPI, headache(s) and syncope; Denies paresthesias or weakness Psychiatric Psychiatric: Denies anxiety or suicidal thoughts EXAM Physical Exam Const Vital Signs: 01/03/22 03:10 01/03/22 03:33 01/03/22 04:22 Temperature 98.0 F Temperature Source Temporal Pulse Rate 111 H 106 H Respiratory Rate 18 24 H Respiratory Effort Normal Non-Labored Respiratory Pattern Normal Blood Pressure 212/160 H 218/166 H Blood Pressure Mean 177 183 Pulse Ox 100 99 Oxygen Delivery Method Room Air Room Air 01/03/22 04:51 01/03/22 05:37 Temperature Temperature Source Pulse Rate 109 H 101 H Respiratory Rate 24 H 21 H Respiratory Effort Respiratory Pattern Blood Pressure 219/153 H 201/147 H Blood Pressure Mean 175 165 Pulse Ox 98 100 Oxygen Delivery Method Room Air Room Air Positive well nourished and well developed General Appearance ED: well developed and NAD HEENT Reports moist mucous membranes normocephalic and atraumatic Eyes PERRL and EOMs intact bilaterally Neck full ROM and supple Resp normal respiratory effort and clear to auscultation bilaterally Cardio regular rate, regular rhythm and no murmurs Rate: tachycardic GI non-tender and non-distended Auscultation: normoactive bowel sounds Palpation: soft Back/Spine no CVA tenderness General Back: other FROM Extremity normal to inspection General Extremety ED: Negative for edema, pulses abnormal or tenderness General Extremity: Negative for edema or pulses abnormal Neuro oriented x3, CN's II-XII intact bilaterally and no sensory deficits noted Sensorium / Orientation: awake and alert Motor Exam: strength 5/5 throughout Psych mental status grossly normal Skin no rashes or lesions noted and no wounds MDM MDM MDM Narrative Medical decision making narrative: This patient's mechanism for syncope tonight sounded like micturition/vagal in nature. It is noted that he has a prolonged QTC, and looking back at prior EKGs that has been the case in the past. Today his QTC is 522, in the past it has been measured 500 and 512 within the past 2 months. He is on 2 medications that appear to possibly be related to this, aripiprazole and trazodone, with the latter being the worse offender. He works night shifts so he has not taken it in almost 24 hours now that it is just after 5 AM. I am going to have him discontinue that for now, but I do not think that he had symptoms of torsades, and he has had no dysrhythmias here. I discussed all this with Dr. Hardwick with cardiology, he agrees with that plan and having the patient follow-up with regards to those issues. I was also very concerned about his elevated blood pressure. I gave him several doses of medications including hydralazine, labetalol, and clonidine. After an observation. We got him down to 197 systolic and he is asymptomatic. Patient states his blood pressure is never less than 200 systolic. He has chronic kidney disease. He was admitted for these blood pressures 2 or 3 weeks ago. In my brief review of the records I cannot see what numbers they got him down to for discharge but Dr. Mccartney with nephrology did see him and documented that there was no galaviz to get him down to 130/80 or less. 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 Mccartney for follow-up. His creatinine is 2.79, this is not far off of what he had been recently, his potassium is 2.9 we will give him a dose of potassium prior to discharge but I do not want to prescribe him any because of his renal function for now. Lab Data Attestation: I reviewed the patient's lab results. Labs: Laboratory Results - last 24 hr 01/03/22 01/03/22 04:46 04:46 WBC 8.0 RBC 4.93 Hgb 14.4 Hct 44.7 MCV 90.7 MCH 29.2 MCHC 32.2 RDW Std Deviation 48.2 H RDW Coeff of [place] 14.5 Plt Count 212 MPV 11.6 Immature Gran % (Auto) 0.400 Neut % (Auto) 71.7 H Lymph % (Auto) 16.6 L [place] % (Auto) 9.0 Eos % (Auto) 1.3 Baso % (Auto) 1.0 Absolute Neuts (auto) 5.7 Absolute Lymphs (auto) 1.33 Nucleated RBC % 0 Sodium 137 Potassium 2.9 L Chloride 100 Carbon Dioxide 24.0 Anion Gap 13 BUN 26 H Creatinine 2.79 H Estim Creat Clear Calc 39.42 Est GFR (MDRD) Af Amer 35 L Est GFR (MDRD) Non-Af 29 L BUN/Creatinine Ratio 9.3 L Glucose 105 Calcium 8.2 L Troponin I High Sens 78 Rhythm Strip Rhythm Strip: Sinus Tach Rate: 103 Ectopy: None EKG Initial EKG: Attestation: I personally reviewed and interpreted this EKG as follows: Interpretation: No Acute Injury Pattern, Sinus Tachycardia and Non-Specific ST Changes Comments: prolonged QTc - 522 Prior EKG tracings: available for review Prior: Unchanged Discharge Plan Triage Chief Complaint: Syncope ED Provider: Chemo Lynne Dx/Rx/DC Orders Clinical Impression: Vasovagal syncope, Long QT interval, Accelerated hypertension, Chronic kidney disease (CKD), Hypokalemia Instructions: Hypertension Dc, ED Fainting, Vagal Reaction Prescriptions: Continued levetiracetam [Keppra] 500 mg Tablet 500 mg PO QHS clonazepam [Klonopin] 1 mg Tablet 1 mg PO DAILY clonazepam [Klonopin] 1 mg Tablet 3 mg PO QHS prazosin 5 mg Capsule 5 mg PO QHS levetiracetam [Keppra] 250 mg Tablet 250 mg PO DAILY aripiprazole [Abilify] 15 mg Tablet 15 mg PO BID omeprazole 40 mg Capsule,Delayed Release(Dr/Ec) 40 mg PO DAILY sucralfate 1 gram tablet 1 g PO 1HR_ACHS metoprolol tartrate 25 mg Tablet 25 mg PO BID Qty: 60 0RF spironolactone 25 mg Tablet 25 mg PO DAILY Qty: 30 0RF hydralazine 50 mg Tablet 50 mg PO TID Qty: 90 1RF Discontinued trazodone 100 mg Tablet 100 mg PO QHS Primary Care Provider: Care Physician,No Primary Referrals: Soni Sanchez MD [Med Staff - Consulting] - As soon as possible (within this next week if able -- call for appt) Care Physician,No Primary [Primary Care Provider] - Activity Restrictions/Additional Instructions: If you are having sleeping/insomnia issues, consider taking melatonin 5 mg instead of the trazodone that you need to discontinue because of an electrical issue on your EKG that that medication could be causing. Disposition Disposition: Home, Self Care
[2022-01-03] MEDS: hydrALAZINE 20 MG/ML Vial IV (04:20)
[2022-01-03 04:22] VITALS: BP 218/166; PULSE 106; RESP 24; O2SAT 99
[2022-01-03 04:51] VITALS: BP 219/153; PULSE 109; RESP 24; O2SAT 98
[2022-01-03 04:55] LABS: Absolute Lymphocyte Count 1.33 X10^3/uL (0.83-4.51); Absolute Neutrophil Count 5.7 X10^3/uL (2.0-7.7); Basophil# 0.08 X10^3/uL; Eosinophils% 1.3 % (0-5); Hematocrit 44.7 % (40-54); Hemoglobin 14.4 g/dL (13.0-16.5); Lymphocyte # 1.33 X10^3/ul (0.83-4.51); Lymphocyte % 16.6 % (19-41); Mean Corp Hgb Conc 32.2 g/dL (32-36); Mean Corpuscular Hgb 29.2 pg (27.0-32.0); Mean Corpuscular Volume 90.7 fL (80-94); Mean Platelet Vol. 11.6 fl (6.2-12.0); Monocyte# 0.72 X10^3/uL; NRBC Flagged by Analyzer 0 % (0-5); Neutrophil # 5.73 X10^3/uL (2.7-7.7); Neutrophil % 71.7 % (47-70); Platelet Count 212 K/mm3 (150-450); RBC Distribution Width CV 14.5 % (11.6-14.6); RBC Distribution Width SD 48.2 fl (35.1-43.9); Red Blood Count 4.93 M/mm3 (4.6-6.2)
[2022-01-03] MEDS: Labetalol (Prefilled) 20 MG/4 ML IV (05:01)
[2022-01-03 05:14] LABS: Anion Gap 13 (5-15); BUN 26 mg/dL (7-18); BUN/Creat Ratio 9.3 RATIO (10-20); Calcium,Total 8.2 mg/dL (8.5-10.1); Chloride 100 mmol/L (98-107); Creatinine, Serum 2.79 mg/dL (0.70-1.30); EST Glomerular Filtration Rate 29 mL/min (>60); Est Glom Filt Rate - Afr Amer 35 mL/min (>60); Estimated Creatinine Clearance 39.42 ml/min; Glucose 105 mg/dL (74-106); Potassium 2.9 mmol/L (3.5-5.1); Sodium Level 137 mmol/L (136-145); Troponin-I HS 78 pg/mL (3.0-78.0)
[2022-01-03] MEDS: cloNIDine HCl 0.2 MG Tablet PO (05:17)
[2022-01-03 05:37] VITALS: BP 201/147; PULSE 101; RESP 21; O2SAT 100
[2022-01-03] MEDS: Potassium Chloride Oral Tablet 20 MEQ 40 MEQ PO (06:04)
[2022-01-03 06:06] VITALS: BP 191/131; PULSE 99; RESP 19; O2SAT 100
== END 2022-01-03 06:07 | disposition home or self-care (01) ==
PROVIDERS: Emergency Provider Emergency Medicine; Visit Provider Emergency Medicine
DX: R55 Syncope and collapse (principal); F31.9 Bipolar disorder, unspecified; N18.32 Chronic kidney disease, stage 3b; I45.81 Long QT syndrome; I12.9 Hypertensive chronic kidney disease with stage 1 through stage 4 chronic kidney disease, or unspecified chronic kidney disease; F17.290 Nicotine dependence, other tobacco product, uncomplicated; E87.6 Hypokalemia; K58.9 Irritable bowel syndrome, unspecified; Z87.11 Personal history of peptic ulcer disease; Z87.19 Personal history of other diseases of the digestive system; Z86.73 Personal history of transient ischemic attack (TIA), and cerebral infarction without residual deficits; Z79.899 Other long term (current) drug therapy; R94.31 Abnormal electrocardiogram [ECG] [EKG]
CPT/HCPCS: 80048; 84484; 85025; 93005; 96374; 96375; 99285; A4216

== ENCOUNTER 2022-01-14 02:33 | Inpatient (IN) | payer SELFPAY ==
[2022-01-14] VITALS (43 sets, daily range): BP systolic 123–230; BP diastolic 82–180; PULSE 72–126; RESP 14–38; TEMP 35.9–36.9; O2SAT 92–100; BMI 39.6; BMI 36.3
--- NOTE | 2022-01-14 02:50 | EKG12_ITS ---
Test Reason : REPEAT/CP Blood Pressure : / mmHG Vent. Rate : 098 BPM Atrial Rate : 098 BPM P-R Int : 130 ms QRS Dur : 088 ms QT Int : 422 ms P-R-T Axes : 067 062 -37 degrees QTc Int : 538 ms Normal sinus rhythm T wave abnormality, consider lateral ischemia Abnormal ECG Confirmed by SHABBIR HAYS, SYL ([id number]), school photograph editor JARAD ESTRADA ([id number]) on 01/17/2022 10:50:53 AM Referred By: ROB Confirmed By:SYL SHEA MD
--- NOTE | 2022-01-14 02:54 | EDS_ITS ---
HPI History of Present Illness Chief Complaint: Male Pain/Injury Informant: patient Narrative Narrative: Patient is a 26-year-old male with history of hypertension, CKD, and bipolar disorder presenting with testicular and penile swelling. Patient states he was rushing around 1030 tonight and noticed that his swelling. It is hard for him to pee because of the amount of swelling he had. He does have some associated discomfort diffusely. Patient notes he has had ongoing swelling of his legs for some time. He has had multiple hospitalizations over the past 2 months for chest pain as well as hypertensive emergency. Patient also states he has a history of stroke however MRI of the brain in July of this year showed no acute infarct but did show right deep parietal white matter nonenhancing lesion, possibly MS. Patient notes that he is not followed up with nephrology yet because he is working so much. 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 He states has been compliant with all of his medications. He notes he has been having worsening swelling of his legs. Has had increased dyspnea on exertion and exercise intolerance. Denies any current chest pain or shortness of breath at rest. Denies orthopnea. [facility] Medical History Bipolar 1 disorder Bleach ingestion Chronic kidney disease, stage 3b CVA (cerebral vascular accident) GERD (gastroesophageal reflux disease) GI bleed Hypertension Irritable bowel syndrome (IBS) Multiple sclerosis PUD (peptic ulcer disease) Seizure disorder Suicide gesture Tobacco abuse Home Medications aripiprazole 15 mg tablet (Abilify) 15 mg PO BID mood stabilizer 07/30/21 [History Last Taken 07/30/21] clonazepam 1 mg tablet (Klonopin) 1 mg PO DAILY mood stabilizer 07/30/21 [History Last Taken 07/29/21] clonazepam 1 mg tablet (Klonopin) 3 mg PO QHS mood stabilizer 07/30/21 [History Last Taken 07/29/21] levetiracetam 250 mg tablet (Keppra) 250 mg PO DAILY tremors 07/30/21 [History Last Taken 07/30/21] levetiracetam 500 mg tablet (Keppra) 500 mg PO QHS tremors 07/30/21 [History Last Taken 07/29/21] omeprazole 40 mg capsule,delayed release 40 mg PO DAILY gerd 07/30/21 [History Last Taken 07/30/21] prazosin 5 mg capsule 5 mg PO QHS blood pressure/ anxiety 07/30/21 [History Last Taken 07/29/21] sucralfate 1 gram tablet 1 g PO 1HR_ACHS Check with primary doctor 12/05/21 [History Last Taken Unknown] metoprolol tartrate 25 mg tablet 25 mg PO BID #60 tabs 12/07/21 [Rx Last Taken Unknown] spironolactone 25 mg tablet 25 mg PO DAILY #30 tabs 12/07/21 [Rx Last Taken Unknown] hydralazine 50 mg tablet 50 mg PO TID #90 tabs 12/18/21 [Rx Last Taken Unknown] Allergy/AdvReac Type Severity Reaction Status Date / Time No Known Allergies Allergy Verified 01/14/22 02:37 Family History Mother Diabetes Hypertension HLD (hyperlipidemia) Bipolar disorder Father Hypertension HLD (hyperlipidemia) Bipolar disorder Diabetes Surgical History H/O left knee surgery Social History household members: none Smoking Status: Current every day smoker tobacco type: e-cigarettes Smokeless tobacco user: other alcohol intake: current alcohol intake frequency: a few times a week substance use type: does not use ROS ROS ED Constitutional Constitutional ED: Denies chills or fever(s) Eyes Eyes: Denies change in vision ENT ENT ED: Denies rhinorrhea or sore throat Cardiovascular Cardiovascular: Denies chest pain, orthopnea, palpitations or paroxysmal nocturnal dyspnea Respiratory/Chest Respiratory/Chest: Reports cough, dyspnea and dyspnea on exertion; Denies orthopnea or paroxysmal nocturnal dyspnea Gastrointestinal Gastrointestinal: Reports other Details: Abdominal bloating ; Denies abdominal pain, nausea or vomiting Genitourinary Genitourinary ED: Reports other Details: Penile and testicular swelling ; Denies dysuria Musculoskeletal Musculoskeletal: Denies arthralgias or myalgias Integumentary Denies rash Neurologic Neurologic: Denies headache(s) or weakness Psychiatric Psychiatric: Reports anxiety EXAM Physical Exam Const Vital Signs: 01/14/22 02:34 01/14/22 03:27 01/14/22 03:35 Temperature 96.7 F L Temperature Source Temporal Pulse Rate 126 H 115 H 115 H Respiratory Rate 18 31 H 35 H Blood Pressure 170/110 H 218/173 H 227/175 H Blood Pressure Mean 130 188 192 Pulse Ox 97 97 99 Oxygen Delivery Method Room Air Room Air Room Air 01/14/22 03:39 01/14/22 03:50 Temperature Temperature Source Pulse Rate 115 H 98 Respiratory Rate 38 H 25 H Blood Pressure 230/180 H 209/164 H Blood Pressure Mean 196 179 Pulse Ox 98 99 Oxygen Delivery Method Room Air Room Air Positive well nourished and well developed General Appearance ED: well developed and NAD HEENT Reports moist mucous membranes Eyes PERRL Neck no JVD Resp clear to auscultation bilaterally Resp Narrative: Mild tachypnea Cardio regular rhythm and no murmurs Rate: tachycardic GI non-tender GI Narrative: 2+ pitting edema to the mid abdomen Inspection: abdominal distention Palpation: Negative for guarding no CVA tenderness Narrative: Significant edema of the testes and penis present. No signs of paraphimosis or penile discharge appreciated. No significant tenderness of the testicles. Groin / Perineum Exam: edema Extremity Extremity Narrative: Significant pain edema of the lower extremities diffusely General Extremety ED: Yes edema General Extremity: edema Neuro oriented x3, moves all extremities, no focal motor deficits and no sensory deficits noted Psych mental status grossly normal Skin Rashes: no rashes MDM MDM MDM Narrative Medical decision making narrative: Patient evaluated for penile swelling. Physical exam is consistent with anasarca. Patient's pain edema up to his mid abdomen. The swelling of his penis and scrotum is consistent with peripheral edema. Do not think this is a urologic emergency as he still able to urinate. Patient is hypertensive in the emergency room as well as tachycardic. He has a history of poorly controlled hypertension as well as CKD. Patient CBC largely unremarkable. CMP shows worsening kidney function with a creatinine of 3.25 now. Potassium mildly low at 3.3 which actually is better than his baseline. Urinalysis shows 5-10 white blood cells with 3+ bacteria. Urine is sent for culture. His high since he troponin is elevated at 118 and his BNP is significantly elevated at 3812. Chest x-ray to read by myself as well as radiology shows cardiomegaly with no other acute process. Given patient's anasarca, worsening renal function, hypertension and elevated troponin patient will be admitted for further treatment of his accelerated hypertension and evaluation for worsening renal insufficiency. I suspect patient does have a component of noncompliance contributing to his worsening symptoms. He is given 20 mg IV labetalol in the ER and started on a Lasix drip. Suspect patient benefit from evaluation for nephrology as well. At 444 notified the patient is having left-sided chest pain. Will repeat EKG and ordered nitroglycerin. Patient's blood pressure did improve slightly with labetalol. Oral clonidine has been ordered. We will continue to monitor. Repeat EKG shows normal sinus rhythm at a rate of 98, prolonged QTC at 538, T wave inversions and lateral leads with no acute change compared to prior EKG Lab Data Attestation: I reviewed the patient's lab results. Labs: Laboratory Results - last 24 hr 01/14/22 01/14/22 01/14/22 03:00 03:10 03:10 WBC 10.5 RBC 4.84 Hgb 14.0 Hct 44.0 MCV 90.9 MCH 28.9 MCHC 31.8 L RDW Std Deviation 49.0 H RDW Coeff of [place] 15.2 H Plt Count 343 MPV 11.2 Immature Gran % (Auto) 0.500 Neut % (Auto) 75.8 H Lymph % (Auto) 12.3 L [place] % (Auto) 9.3 Eos % (Auto) 1.1 Baso % (Auto) 1.0 Absolute Neuts (auto) 8.0 H Absolute Lymphs (auto) 1.29 Nucleated RBC % 0 Sodium 137 Potassium 3.3 L Chloride 102 Carbon Dioxide 24.0 Anion Gap 11 BUN 31 H Creatinine 3.25 H Estim Creat Clear Calc 33.84 Est GFR (MDRD) Af Amer 29 L Est GFR (MDRD) Non-Af 24 L BUN/Creatinine Ratio 9.5 L Glucose 109 H Calcium 8.5 Total Bilirubin 1.60 H AST 23 ALT 30 Alkaline Phosphatase 94 Troponin I High Sens 118 H B-Natriuretic Peptide Total Protein 6.6 Albumin 2.5 L Globulin 4.1 Albumin/Globulin Ratio 0.6 L Urine Color Yellow Urine Clarity Clear Urine pH 6.0 Ur Specific [place] 1.020 Urine Protein 500 H Urine Glucose (UA) Normal Urine Ketones 5 H Urine Occult Blood 50 H Urine Nitrite Negative Urine Bilirubin Negative Urine Urobilinogen 1 H Ur Leukocyte Esterase 25 H Urine RBC 0 SEEN Urine WBC 5-10 SEEN Ur Squamous Epith Cells 0 SEEN Urine Bacteria 3+ Urine Mucus 0 SEEN 01/14/22 03:10 WBC RBC Hgb Hct MCV MCH MCHC RDW Std Deviation RDW Coeff of [place] Plt Count MPV Immature Gran % (Auto) Neut % (Auto) Lymph % (Auto) [place] % (Auto) Eos % (Auto) Baso % (Auto) Absolute Neuts (auto) Absolute Lymphs (auto) Nucleated RBC % Sodium Potassium Chloride Carbon Dioxide Anion Gap BUN Creatinine Estim Creat Clear Calc Est GFR (MDRD) Af Amer Est GFR (MDRD) Non-Af BUN/Creatinine Ratio Glucose Calcium Total Bilirubin AST ALT Alkaline Phosphatase Troponin I High Sens B-Natriuretic Peptide 3812.0 H Total Protein Albumin Globulin Albumin/Globulin Ratio Urine Color Urine Clarity Urine pH Ur Specific [place] Urine Protein Urine Glucose (UA) Urine Ketones Urine Occult Blood Urine Nitrite Urine Bilirubin Urine Urobilinogen Ur Leukocyte Esterase Urine RBC Urine WBC Ur Squamous Epith Cells Urine Bacteria Urine Mucus Radiography Diagnostic Testing: Clinical Impression(s) from Imaging Studies Chest X-Ray 01/14/22 03:20 IMPRESSION: Enlarged cardiac silhouette. No confluent airspace disease. Electronically Signed: Damian Patterson MD at 4:00 EDT , Rhythm Strip Rhythm Strip: Sinus Tach Rate: 116 Ectopy: None EKG Initial EKG: Attestation: I personally reviewed and interpreted this EKG as follows: Interpretation: Sinus Tachycardia Comments: Sinus tachycardia at a rate of 116 Normal axis Normal SC and QRS Prolonged QTC at 528 T wave inversion in V5 through V6 with T wave flattening in 1 and aVL, no reciprocal changes No change greater prior EKG on 01/03/2022 Prior: Unchanged Discharge Plan Dx/Rx/DC Orders Clinical Impression: Accelerated essential hypertension, Acute kidney injury superimposed on chronic kidney disease, Cardiomegaly, Anasarca Disposition Disposition: Acute Care Hospital [facility] Discharge Date/Time: 01/14/22 06:07
[2022-01-14 03:02] LABS: Mucous, Urine 0 SEEN /hpf (<or=2+); Red Blood Cells-Urine 0 SEEN /hpf (0-5); Squamous Epithelial Cells - UA 0 SEEN /hpf (0-5)
[2022-01-14 03:04] LABS: Color, Urine Yellow (Yellow); Glucose, Dipstick Normal (Normal); Ketone-Dipstick 5 mg/dl (Negative); Leukocyte Esterase-Dipstick 25 /ul (Negative); Nitrite-Dipstick Negative (Negative); Occult Blood-Urine 50 /ul (Negative); Protein-Dipstick 500 mg/dl (Negative); Urine Bilirubin Dipstick Negative (Negative); Urine Clarity Clear (Clear); Urine Urobilinogen 1 mg/dl (Normal)
[2022-01-14 03:13] LABS: White Blood Cells 5-10 SEEN /hpf (0-5)
[2022-01-14 03:14] LABS: Bacteria 3+ /hpf (None Seen)
[2022-01-14 03:16] LABS: Absolute Lymphocyte Count 1.29 X10^3/uL (0.83-4.51); Basophil# 0.11 X10^3/uL; Eosinophil# 0.12 X10^3/uL; Eosinophils% 1.1 % (0-5); Lymphocyte # 1.29 X10^3/ul (0.83-4.51); Lymphocyte % 12.3 % (19-41); Mean Corp Hgb Conc 31.8 g/dL (32-36); Mean Corpuscular Hgb 28.9 pg (27.0-32.0); Mean Corpuscular Volume 90.9 fL (80-94); Mean Platelet Vol. 11.2 fl (6.2-12.0); Monocyte# 0.98 X10^3/uL; Monocyte% 9.3 % (0-10); NRBC Flagged by Analyzer 0 % (0-5); Neutrophil # 7.98 X10^3/uL (2.7-7.7); Neutrophil % 75.8 % (47-70); Platelet Count 343 K/mm3 (150-450); RBC Distribution Width CV 15.2 % (11.6-14.6); Red Blood Count 4.84 M/mm3 (4.6-6.2); White Blood Count 10.5 K/mm3 (4.4-11.0)
--- NOTE | 2022-01-14 03:20 | RAD_ITS ---
INDICATION: edema, SOB EXAMINATION: Frontal and lateral views of the chest. COMPARISON: December 17, 2021. FINDINGS: Frontal and lateral views of the chest were obtained. The cardiac silhouette is mildly enlarged. No confluent airspace disease. No pleural effusion or pneumothorax. RAD/Chest PA and Lateral IMPRESSION: Enlarged cardiac silhouette. No confluent airspace disease. Electronically Signed: Damian Patterson MD at 4:00 EDT ,
[2022-01-14 03:34] LABS: ALB/GLOB Ratio 0.6 RATIO (0.9-2.4); AST(SGOT) 23 U/L (15-37); Alanine Aminotransfer ALT/SGPT 30 U/L (16-61); Albumin, Serum 2.5 g/dL (3.2-5.0); Alkaline Phosphatase 94 U/L (45-117); Anion Gap 11 (5-15); BUN 31 mg/dL (7-18); BUN/Creat Ratio 9.5 RATIO (10-20); Calcium,Total 8.5 mg/dL (8.5-10.1); Chloride 102 mmol/L (98-107); Creatinine, Serum 3.25 mg/dL (0.70-1.30); EST Glomerular Filtration Rate 24 mL/min (>60); Est Glom Filt Rate - Afr Amer 29 mL/min (>60); Estimated Creatinine Clearance 33.84 ml/min; Globulin 4.1 g/dL (2.2-4.2); Glucose 109 mg/dL (74-106); Potassium 3.3 mmol/L (3.5-5.1); Protein, Total 6.6 g/dL (6.4-8.2); Sodium Level 137 mmol/L (136-145); Troponin-I HS 118 pg/mL (3.0-78.0)
[2022-01-14] MEDS: Labetalol (Prefilled) 20 MG/4 ML IV (03:43)
--- NOTE | 2022-01-14 04:01 | HP.PCM.HOS_ITS ---
[facility] - General General Date of Service: 01/14/22 Chief Complaint: lower extremity and testicular swelling HPI Narrative EDU WILCOX, is a 26 M with a PMH as outlined who presents via the ED with a complaint of lower extremity swelling and swelling of his genitalia. He said the swelling of his lower extremities had been going on for about a month, and gradually worsening. He had associated shortness of breath, orthopnea and PND. The swelling started involving his penis and testicles over the last day, and so he decided to come to the hospital. Review of systems is otherwise negative. Vitals in the ED were BP of 209/164, OK of 98, RR of 25 and he was saturating for 99% on room air. CBC showed wbc of 10.5, Hb of 14 and platelets of 343. Chemistry showed sodium of 137, potassium of 3.3, Cr of 3.25, with baseline of ~ 2.2. Initial high sensitivity troponin was 118, and BNP of 3812. Urinalysis showed 3+ bacteria. CXR showed enlarged cardiac silhouette, but no pleural effusion or pneumothorax. He is being admitted to be managed for acute heart armen lure with preserved EF. [facility] Medical History Bipolar 1 disorder Bleach ingestion Chronic kidney disease, stage 3b CVA (cerebral vascular accident) GERD (gastroesophageal reflux disease) GI bleed Hypertension Irritable bowel syndrome (IBS) Multiple sclerosis PUD (peptic ulcer disease) Seizure disorder Suicide gesture Tobacco abuse Home Medications aripiprazole 15 mg tablet (Abilify) 15 mg PO BID mood stabilizer 07/30/21 [History Last Taken 07/30/21] clonazepam 1 mg tablet (Klonopin) 1 mg PO DAILY mood stabilizer 07/30/21 [History Last Taken 07/29/21] clonazepam 1 mg tablet (Klonopin) 3 mg PO QHS mood stabilizer 07/30/21 [History Last Taken 07/29/21] levetiracetam 250 mg tablet (Keppra) 250 mg PO DAILY tremors 07/30/21 [History Last Taken 07/30/21] levetiracetam 500 mg tablet (Keppra) 500 mg PO QHS tremors 07/30/21 [History Last Taken 07/29/21] omeprazole 40 mg capsule,delayed release 40 mg PO DAILY gerd 07/30/21 [History Last Taken 07/30/21] prazosin 5 mg capsule 5 mg PO QHS blood pressure/ anxiety 07/30/21 [History Last Taken 07/29/21] sucralfate 1 gram tablet 1 g PO 1HR_ACHS Check with primary doctor 12/05/21 [History Last Taken Unknown] metoprolol tartrate 25 mg tablet 25 mg PO BID #60 tabs 12/07/21 [Rx Last Taken Unknown] spironolactone 25 mg tablet 25 mg PO DAILY #30 tabs 12/07/21 [Rx Last Taken Unknown] hydralazine 50 mg tablet 50 mg PO TID #90 tabs 12/18/21 [Rx Last Taken Unknown] Allergy/AdvReac Type Severity Reaction Status Date / Time No Known Allergies Allergy Verified 01/14/22 02:37 Family History Mother Diabetes Hypertension HLD (hyperlipidemia) Bipolar disorder Father Hypertension HLD (hyperlipidemia) Bipolar disorder Diabetes Surgical History H/O left knee surgery Social History household members: none Smoking Status: Current every day smoker tobacco type: e-cigarettes Smokeless tobacco user: other alcohol intake: current alcohol intake frequency: a few times a week substance use type: does not use ROS Constitutional Constitutional: Denies anorexia, chills, fatigue, fever(s), malaise or weakness Eyes Eyes: Denies change in vision ENT HEENT: Denies dysphagia, headache(s) or sore throat Cardiovascular Cardiovascular: Reports chest pain, dyspnea on exertion, edema, orthopnea and paroxysmal nocturnal dyspnea; Denies lightheadedness, palpitations, rapid heart rate or syncope Respiratory/Chest Respiratory/Chest: Reports dyspnea, shortness of breath at rest and shortness of breath with exertion; Denies cough, excessive phlegm production, hemoptysis, productive cough or wheezing Gastrointestinal Gastrointestinal: Denies abdominal pain, constipation, diarrhea, nausea or vomiting Genitourinary Genitourinary: Reports difficulty urinating; Denies burning urination, dysuria or urinary frequency Musculoskeletal Musculoskeletal: Denies arthralgias or back pain Neurologic Neurologic: Denies confusion, dizziness, focal weakness, headache(s), seizures or syncope Psychiatric Psychiatric: Denies anxiety Endocrine Endocrinology: Reports change in body appearance Vital Signs Vital Signs Vital Signs: 01/14/22 02:34 01/14/22 03:27 01/14/22 03:35 Temperature 96.7 F L Temperature Source Temporal Pulse Rate 126 H 115 H 115 H Respiratory Rate 18 31 H 35 H Blood Pressure 170/110 H 218/173 H 227/175 H Blood Pressure Mean 130 188 192 Pulse Ox 97 97 99 Oxygen Delivery Method Room Air Room Air Room Air 01/14/22 03:39 01/14/22 03:50 Temperature Temperature Source Pulse Rate 115 H 98 Respiratory Rate 38 H 25 H Blood Pressure 230/180 H 209/164 H Blood Pressure Mean 196 179 Pulse Ox 98 99 Oxygen Delivery Method Room Air Room Air Weight Weight: 268 lb 1.314 oz Body Mass Index (BMI) 39.6 Physical Exam Const alert, oriented x3 and no apparent distress General Appearance: cooperative HEENT normocephalic, head/scalp atraumatic and hearing grossly normal bilaterally Mouth: oral and palatal mucosa normal Neck no lymphadenopathy and supple Resp normal respiratory effort, no retractions and no use of accessory muscles Resp Narrative: mildly diminished breath sounds bibasally, no wheezes or crackles. On room air. Cardio regular rate, regular rhythm, S1 normal heart sound, S2 normal heart sound and no murmurs GI normal to inspection, nondistended, normoactive bowel sounds, soft to palpation and non-tender Extremity Extremity Narrative: bilateral 3+ pitting lower extremity edema. has edema of the penis and testicles also Neuro oriented x3, CN's II-XII intact bilaterally, moves all extremities and no focal motor deficits Sensorium / Orientation: awake and alert Motor Exam: strength 5/5 throughout Psych affect normal Results Lab / Micro Data Result Diagrams: 01/14/22 03:10 01/14/22 03:10 Labs: Laboratory Results - last 24 hr 01/14/22 03:00: Urine Color Yellow, Urine Clarity Clear, Urine pH 6.0, Ur Specific [place] 1.020, Urine Protein 500 H, Urine Glucose (UA) Normal, Urine Ketones 5 H, Urine Occult Blood 50 H, Urine Nitrite Negative, Urine Bilirubin Negative, Urine Urobilinogen 1 H, Ur Leukocyte Esterase 25 H, Urine RBC 0 SEEN, Urine WBC 5-10 SEEN, Ur Squamous Epith Cells 0 SEEN, Urine Bacteria 3+, Urine Mucus 0 SEEN 01/14/22 03:10: WBC 10.5, RBC 4.84, Hgb 14.0, Hct 44.0, MCV 90.9, MCH 28.9, MCHC 31.8 L, RDW Std Deviation 49.0 H, RDW Coeff of [place] 15.2 H, Plt Count 343, MPV 11.2, Immature Gran % (Auto) 0.500, Neut % (Auto) 75.8 H, Lymph % (Auto) 12.3 L, [place] % (Auto) 9.3, Eos % (Auto) 1.1, Baso % (Auto) 1.0, Absolute Neuts (auto) 8.0 H, Absolute Lymphs (auto) 1.29, Nucleated RBC % 0 01/14/22 03:10: Sodium 137, Potassium 3.3 L, Chloride 102, Carbon Dioxide 24.0, Anion Gap 11, BUN 31 H, Creatinine 3.25 H, Estim Creat Clear Calc 33.84, Est GFR (MDRD) Af Amer 29 L, Est GFR (MDRD) Non-Af 24 L, BUN/Creatinine Ratio 9.5 L, Glucose 109 H, Calcium 8.5, Total Bilirubin 1.60 H, AST 23, ALT 30, Alkaline Phosphatase 94, Troponin I High Sens 118 H, Total Protein 6.6, Albumin 2.5 L, Globulin 4.1, Albumin/Globulin Ratio 0.6 L 01/14/22 03:10: B-Natriuretic Peptide 3812.0 H Rhythm Strip Rhythm Strip: Sinus Tach Rate: 116 Ectopy: None Assessment & Plan Assessment/Plan (1) Acute kidney injury superimposed on chronic kidney disease: (2) Heart failure: PLAN: Plan #Acute heart failure with preserved EF * has bilateral 3+ lower extremity pitting pedal edema, and also has edema of his genitalia, with associated orthopnea and PND * says he has been compliant with his meds * BNP is >3000, and initial troponin is 117 * admit to PCU * start on diureses with IV lasix drip * fluid restriction to 1500cc daily * insert storey catheter to monitor urine output * had 2D echo in December 2021 which showed EF of 60% with normal LV size and function and moderately enlarged left atrium, as well as moderate concentric LV hypertrophy * consult cardiology * #JULIANNA on CKD 3B * Cr is 3.25, with a baseline of 2.4 * says his urine output had decreased * cant hydrate with IVF due to acute heart failure * trend Cr whilst on IV lasix for heart failure * consult nephrology * #Hypertensive urgency * BP markedly elevated in the 200s systolic * claims compliance with his meds * on metoprolol, hydralazine and spironolactone * IV hydralazine prn * will start on nicardipine drip as needed if BP remains markedly elevated * hadnt yet followed up with nephrology or endocrinology on outpatient basis * #Asymptomatic bacteriuria * urine bacteria is 3+; has no urinary symptoms * previous urinalysis showed bacteriuria * get urine culture and hold off on antibiotics for now * #Seizure disorder: on keppra DVT prophylaxis; lovenox 30mg daily * # Charges/Coding Visit Charges Inpatient E&M: 12786 Init Hosp L3
--- NOTE | 2022-01-14 04:43 | EKG12_ITS ---
Test Reason : EDEMA Blood Pressure : / mmHG Vent. Rate : 116 BPM Atrial Rate : 116 BPM P-R Int : 128 ms QRS Dur : 086 ms QT Int : 380 ms P-R-T Axes : 051 052 -74 degrees QTc Int : 528 ms Sinus tachycardia T wave abnormality, consider lateral ischemia Prolonged QT Abnormal ECG When compared with ECG of 03-JAN-2022 03:15, No significant change was found Confirmed by SHABBIR HAYS, SYL ([id number]), newspaper photo editor JARAD ESTRADA ([id number]) on 01/18/2022 9:21:46 AM Referred By: ROB Confirmed By:SYL SHEA MD
[2022-01-14] MEDS: Furosemide 500 MG in Empty Viaflex 50 mL 1 EACH CONT INF ×2 (04:53→08:40)
[2022-01-14] MEDS: cloNIDine HCl 0.1 MG Tablet PO (04:57)
[2022-01-14] MEDS: Nitroglycerin SL (ED/IMG/CATH) 0.4 MG TABLET SL ×3 (05:22→06:05)
[2022-01-14] MEDS: hydrALAZINE 50 MG Tablet PO ×3 (06:52→21:33)
[2022-01-14] MEDS: Sucralfate 1 GM Tablet PO ×4 (06:53→21:33)
[2022-01-14 07:24] LABS: Troponin-I HS 108 pg/mL (3.0-78.0)
[2022-01-14] MEDS: Potassium Chloride Oral Tablet 20 MEQ 40 MEQ PO (07:38)
[2022-01-14] MEDS: oxyCODONE 5 MG Tablet PO (07:38)
[2022-01-14] MEDS: Acetaminophen 325 MG Tablet 650 MG PO (07:40)
[2022-01-14] MEDS: Pantoprazole Sodium 40 MG Tablet PO (08:25)
[2022-01-14] MEDS: Metoprolol Tartrate 25 MG Tablet PO (08:25)
[2022-01-14] MEDS: clonazePAM 1 MG Tablet PO (08:25)
[2022-01-14] MEDS: Spironolactone 25 MG Tablet PO (08:25)
[2022-01-14] MEDS: ARIPiprazole 5 MG Tablet 15 MG PO ×2 (08:26→21:33)
[2022-01-14] MEDS: Enoxaparin 40 MG/0.4 ML Syringe SC (08:26)
[2022-01-14] MEDS: levETIRAcetam 250 MG Tablet PO (08:26)
[2022-01-14] MEDS: hydrALAZINE 20 MG/ML Vial 10 MG IV ×2 (10:09→17:04)
--- NOTE | 2022-01-14 10:33 | PCM.PN.HOSP ---
Subjective Subjective Patient admitted early this morning with hypertensive emergency. Currently in the ICU on Lasix drip. Blood pressures are improved since admission and are currently 165/116. Patient reports compliant with his medications at baseline. Cardiology and nephrology consults are pending. Objective Data Objective Data Vital Signs: Vital Signs Temp Pulse Resp BP Pulse Ox O2 Del Method 98.4 F 89 22 H 165/116 H 98 Room Air 01/14/22 10:00 01/14/22 10:09 01/14/22 10:00 01/14/22 10:01/14/22 10:00 01/14/22 10:00 Oxygen Delivery Method Room Air Weight: 111.7 kg Body Mass Index (BMI) 36.3 Intake & Output: Intake and Output for Last 24 Hours 01/12/22 01/13/22 01/14/22 23:59 23:59 23:59 Intake Total 123.78 / 123.78 Output Total 400 / 400 Balance -276.22 / -276.22 Lab / Micro Data Result Diagrams: 01/14/22 03:10 01/14/22 03:10 Labs: Laboratory Results - last 24 hr 01/14/22 03:00: Urine Color Yellow, Urine Clarity Clear, Urine pH 6.0, Ur Specific [place] 1.020, Urine Protein 500 H, Urine Glucose (UA) Normal, Urine Ketones 5 H, Urine Occult Blood 50 H, Urine Nitrite Negative, Urine Bilirubin Negative, Urine Urobilinogen 1 H, Ur Leukocyte Esterase 25 H, Urine RBC 0 SEEN, Urine WBC 5-10 SEEN, Ur Squamous Epith Cells 0 SEEN, Urine Bacteria 3+, Urine Mucus 0 SEEN 01/14/22 03:10: WBC 10.5, RBC 4.84, Hgb 14.0, Hct 44.0, MCV 90.9, MCH 28.9, MCHC 31.8 L, RDW Std Deviation 49.0 H, RDW Coeff of [place] 15.2 H, Plt Count 343, MPV 11.2, Immature Gran % (Auto) 0.500, Neut % (Auto) 75.8 H, Lymph % (Auto) 12.3 L, [place] % (Auto) 9.3, Eos % (Auto) 1.1, Baso % (Auto) 1.0, Absolute Neuts (auto) 8.0 H, Absolute Lymphs (auto) 1.29, Nucleated RBC % 0 01/14/22 03:10: Sodium 137, Potassium 3.3 L, Chloride 102, Carbon Dioxide 24.0, Anion Gap 11, BUN 31 H, Creatinine 3.25 H, Estim Creat Clear Calc 33.84, Est GFR (MDRD) Af Amer 29 L, Est GFR (MDRD) Non-Af 24 L, BUN/Creatinine Ratio 9.5 L, Glucose 109 H, Calcium 8.5, Total Bilirubin 1.60 H, AST 23, ALT 30, Alkaline Phosphatase 94, Troponin I High Sens 118 H, Total Protein 6.6, Albumin 2.5 L, Globulin 4.1, Albumin/Globulin Ratio 0.6 L 01/14/22 03:10: B-Natriuretic Peptide 3812.0 H 01/14/22 07:00: Troponin I High Sens 108 H Radiography Diagnostic Testing: Radiology Impression Chest X-Ray 01/14/22 03:20 IMPRESSION: Enlarged cardiac silhouette. No confluent airspace disease. Electronically Signed: Damian Patterson MD at 4:00 EDT , Rhythm Strip Rhythm Strip: Sinus Tach Rate: 116 Ectopy: None Assessment & Plan Assessment/Plan (1) Heart failure: (2) Hypertensive emergency: (3) Acute kidney injury superimposed on chronic kidney disease: (4) Anasarca: (5) Hypokalemia: PLAN: Plan Hypertensive emergency -Patient with bilateral lower extremity swelling, scrotal and penile swelling, elevated BNP with acute heart failure -Continue home antihypertensives -Continue Lasix drip for now -If patient has been compliant with his home medications may need renal biopsy -Await nephrology input -? Nephrotic syndrome versus nephritic syndrome -Patient with occult blood and marked proteinuria on his UA -As needed medications also available -Blood pressure seems to be improving HFpEF -Patient with recent echocardiogram on 12/06/2021 that showed an EF of 60%, moderately enlarged LA and moderate concentric LVH -Continue Lasix drip -Strict I's and O's -Sodium restricted diet initiated especially with -Daily weights -Stress test done on 12/18/2021 and was negative for any inducible ischemia JULIANNA on CKD stage IIIb -Baseline serum creatinine appears to be around 2.2 -Current serum creatinine 3.25 -Check CH 50, C3, and C4 -Patient with recent TSH at 3.37 -Renin level was markedly elevated at 12.23 on 12/06/2021 -Aldosterone on was within normal limits on 12/06/2021 -? Renal biopsy -Await nephrology input Anasarca -See above Asymptomatic bacteriuria -3+ bacteria on UA -No reason to obtain culture since patient is asymptomatic Seizure disorder -Continue Keppra GERD/reflux esophagitis -Continue omeprazole -Continue Carafate -Recent EGD 07/31/2021 History of bipolar disorder -Previous suicide attempt -Continue home Abilify and clonazepam -Continue outpatient psychiatry follow-up DVT prophylaxis -Continue enoxaparin CODE STATUS -full code
[2022-01-14 11:44] LABS: Urea Nitrogen, Urine 629 mg/dL (NO RANGE EST.)
[2022-01-14 12:05] LABS: Bedside Glucose 118 mg/dL (74-106)
[2022-01-14 13:16] LABS: Troponin-I HS 89 pg/mL (3.0-78.0)
[2022-01-14 13:16] LABS: Chlamydia Trachomatis by PCR Negative (Negative); Neisserai gonorrhoeae by PCR Negative (Negative); Probe Check PASS; Sample Adequacy Control PASS; Specimen Processing Control PASS
--- NOTE | 2022-01-14 13:47 | CON.PCM.RE_ITS ---
Assessment & Plan Assessment/Plan (1) Hypertensive emergency: PLAN: Hypertensive emergency. He says he has been taking all his medications. Previous renin level around 13, aldosterone low. CT abdomen with contrast does not show atrophic kidney. Low suspicion for renal artery stenosis. Significant family history. LVH on echocardiogram. Likely some volume component. Continue Lasix drip for now. (2) Acute kidney injury superimposed on chronic kidney disease: PLAN: Early this year his creatinine was around 1.4. Last admission creatinine was in the mid twos. Currently more than 3. Subacute renal failure which could be hypertensive nephropathy. Urine analysis shows hematuria and proteinuria. Serologies-for some reason double-stranded DNA was read as unreadable. Complements pending. ANCA levels ordered. Previous anticardiolipin antibodies were positive. Eventually may need rheumatology evaluation. Due to hematuria and proteinuria of 1.2 g, he may need a kidney biopsy. Blood pressure needs to be better before the biopsy. We will possibly plan for the biopsy early next week. (3) Anasarca: PLAN: Continue Lasix drip. Replete potassium as needed. HPI Consult Data Date of Consult: 01/14/22 HPI Narrative Reason for Consultation: JULIANNA HPI Narrative: EDU WILCOX, is a 26 M who presents hospital with worsening lower extremity edema, shortness of breath, hypertensive emergency. Nephrology on consultation for renal failure. He has known history of hypertension, initially diagnosed when he was 19. He was seen by our service when he was admitted here earlier this year. Hypertension, onset about 7 years ago, family history positive, family members had renal failure requiring dialysis, no cerebrovascular events. Echocardiogram with left ventricular hypertrophy. Not been tested for sleep apnea. Renal failure, earlier this year creatinine was around 1.5, last month his cr eatinine was in the mid twos, now up to more than 3. Has significant lower extremity edema, scrotal edema. Echocardiogram with ejection fraction of 60% with LVH. Thinks he gained about 9 to 10 pounds with this edema. Currently on Lasix drip. Somewhat better. Denies any obstructive symptoms. Denies using NSAIDs. He says that he is compliant with all his medications. [facility] Medical History Bipolar 1 disorder Bleach ingestion Chronic kidney disease, stage 3b CVA (cerebral vascular accident) GERD (gastroesophageal reflux disease) GI bleed Hypertension Irritable bowel syndrome (IBS) Multiple sclerosis PUD (peptic ulcer disease) Seizure disorder Suicide gesture Tobacco abuse Home Medications aripiprazole 15 mg tablet (Abilify) 15 mg PO BID mood stabilizer 07/30/21 [History Last Taken 07/30/21] clonazepam 1 mg tablet (Klonopin) 1 mg PO DAILY mood stabilizer 07/30/21 [History Last Taken 07/29/21] clonazepam 1 mg tablet (Klonopin) 3 mg PO QHS mood stabilizer 07/30/21 [History Last Taken 07/29/21] levetiracetam 250 mg tablet (Keppra) 250 mg PO DAILY tremors 07/30/21 [History Last Taken 07/30/21] levetiracetam 500 mg tablet (Keppra) 500 mg PO QHS tremors 07/30/21 [History Last Taken 07/29/21] omeprazole 40 mg capsule,delayed release 40 mg PO DAILY gerd 07/30/21 [History Last Taken 07/30/21] prazosin 5 mg capsule 5 mg PO QHS blood pressure/ anxiety 07/30/21 [History Last Taken 07/29/21] sucralfate 1 gram tablet 1 g PO 1HR_ACHS Check with primary doctor 12/05/21 [History Last Taken Unknown] metoprolol tartrate 25 mg tablet 25 mg PO BID #60 tabs 12/07/21 [Rx Last Taken Unknown] spironolactone 25 mg tablet 25 mg PO DAILY #30 tabs 12/07/21 [Rx Last Taken Unknown] hydralazine 50 mg tablet 50 mg PO TID #90 tabs 12/18/21 [Rx Last Taken Unknown] Allergy/AdvReac Type Severity Reaction Status Date / Time No Known Allergies Allergy Verified 01/14/22 02:37 Family History Mother Diabetes Hypertension HLD (hyperlipidemia) Bipolar disorder Father Hypertension HLD (hyperlipidemia) Bipolar disorder Diabetes Surgical History H/O left knee surgery Social History household members: none Smoking Status: Current every day smoker tobacco type: e-cigarettes Smokeless tobacco user: other alcohol intake: current alcohol intake frequency: a few times a week substance use type: does not use ROS ROS Narrative Negative except above Physical Exam Narrative Alert awake oriented x 3 no obvious distress no pallor no icterus no JVD s1s2 no murmurs lungs clear abdomen soft no organomegaly +++ edema no cyanosis Lab / Micro Data Result Diagrams: 01/14/22 03:10 01/14/22 03:10 Labs: Laboratory Results - last 24 hr 01/14/22 03:00: Urine Color Yellow, Urine Clarity Clear, Urine pH 6.0, Ur Specific [place] 1.020, Urine Protein 500 H, Urine Glucose (UA) Normal, Urine Ketones 5 H, Urine Occult Blood 50 H, Urine Nitrite Negative, Urine Bilirubin Negative, Urine Urobilinogen 1 H, Ur Leukocyte Esterase 25 H, Urine RBC 0 SEEN, Urine WBC 5-10 SEEN, Ur Squamous Epith Cells 0 SEEN, Urine Bacteria 3+, Urine Mucus 0 SEEN 01/14/22 03:10: WBC 10.5, RBC 4.84, Hgb 14.0, Hct 44.0, MCV 90.9, MCH 28.9, MCHC 31.8 L, RDW Std Deviation 49.0 H, RDW Coeff of [place] 15.2 H, Plt Count 343, MPV 11.2, Immature Gran % (Auto) 0.500, Neut % (Auto) 75.8 H, Lymph % (Auto) 12.3 L, [place] % (Auto) 9.3, Eos % (Auto) 1.1, Baso % (Auto) 1.0, Absolute Neuts (auto) 8.0 H, Absolute Lymphs (auto) 1.29, Nucleated RBC % 0 01/14/22 03:10: Sodium 137, Potassium 3.3 L, Chloride 102, Carbon Dioxide 24.0, Anion Gap 11, BUN 31 H, Creatinine 3.25 H, Estim Creat Clear Calc 33.84, Est GFR (MDRD) Af Amer 29 L, Est GFR (MDRD) Non-Af 24 L, BUN/Creatinine Ratio 9.5 L, Glucose 109 H, Calcium 8.5, Total Bilirubin 1.60 H, AST 23, ALT 30, Alkaline Ph osphatase 94, Troponin I High Sens 118 H, Total Protein 6.6, Albumin 2.5 L, Globulin 4.1, Albumin/Globulin Ratio 0.6 L 01/14/22 03:10: B-Natriuretic Peptide 3812.0 H 01/14/22 07:00: Troponin I High Sens 108 H 01/14/22 09:30: Troponin I High Sens 89 H 01/14/22 11:15: Chlam trachomat DNA PCR Negative, N.gonorrhoeae DNA (PCR) Negative 01/14/22 11:15: Urine Creatinine 165.00, Urine Urea Nitrogen 629 01/14/22 11:38: POC Glucose 118 H Rhythm Strip Rhythm Strip: Sinus Tach Rate: 116 Ectopy: None Radiology Impression Chest X-Ray 01/14/22 03:20 IMPRESSION: Enlarged cardiac silhouette. No confluent airspace disease. Electronically Signed: Damian Patterson MD at 4:00 EDT ,
--- NOTE | 2022-01-14 15:40 | CASEMGMT ---
MARGARITA DURAN ANTIQUE FINISHER RENEE to room to meet with patient for initial transition planning/care coordination assessment. MARGARITA DURAN introduced self and role at [facility]. Pt voices understanding and consents to assessment at this time. Pt resting in bed in no distress at this time. Pt is A/O at this time and answers all questions appropriately. Care providers, pharmacy, and demographics verified/updated at this time. PCP: No PCP. [facility] in December. He states he has not called them or scheduled an appt d/t work, stating he worked about 60 hrs last week. He states he still has the information provided. MARGARITA DURAN encouraged him to schedule an appt for ongoing medical care/follow-up. Specialists: none Preferred Pharmacy: [facility] Retail Insurance: none. Self-pay. Pt was provided w/[facility] application last admit in December Prescription Benefit: None Living Will/HPOA: Pt does not currently have LW/HCPOA and declines info at this time. Pt made aware that he can contact SW as an out-pt and make appt in the future if he decides he would like to talk with someone about this or would like to utilize [facility] social work for advanced directive completion. He states he is not close enough with anyone that I would trust to make those decisions for me or that I could talk to about what I want. LNOK: Pt states he has no living relatives, stating, None are alive to my knowledge. Friend, Yady, is listed as the only internal salesperson. Pt agreeable to her remaining on his contact list. Living Arrangements: Lives alone in 3rd floor apt. Denies difficulty w/stairs. Independent w/ADL's and IADL's. Works full-time @ [employer] Transportation: Pt states he drives. DME: Pt states he had a BP machine but it broke and he needs to get a new one. HHC/SNF: No hx of either. Pt wishes to return home and states has no concerns with going home at time of discharge. CM to follow for any discharge planning/needs. Pt voices no further concerns/needs at this time. Advised pt to ask for CM if any further questions/concerns/needs arise. Voices understanding. PLAN: Home w/discharge plans in place. Referral made to [facility]. Jose Alberto Martinez, pt declines the program at this time. Mckinley DARLING RN CM
--- NOTE | 2022-01-14 16:25 | CASEMGMT ---
Social Work SW met with pt and introduced self and role of SW. Pt agreeable to speak with SW. Pt confirms he does not currently have health insurance. 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 SW spoke with pt regarding Medicaid and pt states he makes too much to qualify. SW inquired with pt regarding PCP and pt states he does not have a PCP nor has he seen anyone in the past year. SW spoke with pt regarding importance of following up with PCP and SW provided verbal and written information on the [facility]. SW also provided prescription assistance, Medicaid tay, WHIRE Card, and People to [employer] information. Pt states he lives in an apartment and feels safe in his home. He has needed transportation and food. SW inquired about mental health and pt admits to having a major depessive episode early in the year with need for psychiatric placement. Pt denies any thoughts or intentions of suicide at this time. Pt states that this week he did get connected with an online counseling service that can provide counseling and medication management. Pt states he does take Abilify and knows how important that it is to continue with this medication as it is very helpful to his mental health. SW provided pt with a list of local counseling services should this not work out and informed that [facility] can do both med management and counseling and is on a sliding scale fee. Pt appreciative of the information but will try to work out the online option. Pt made aware that SW will remain available should other needs arise. TWAN Burgess
--- NOTE | 2022-01-14 17:57 | CON.PCM.CA_ITS ---
Assessment & Plan Assessment/Plan (1) Hypertensive emergency: PLAN: He appears to have a hypertensive emergency. My recommendation at this time would be to resume his beta-macrina but at a higher dose of 100 mg twice a day. He is no longer vomiting at this time. I would also suggest the addition of amlodipine 10 mg a day He can continue the spironolactone for now He can continue the doxazosin. I am hesitant to continue the clonidine due to rebound issues. (2) Heart failure: PLAN: He is on intravenous diuretics and I will try to wean him off of this over the next 24 hours. His ejection fraction was noted to be preserved on the most recent echocardiogram. He does have some renal dysfunction and therefore is not a candidate for an ARB NO or Entresto. Thank you for allowing me to participate in the care of your patient. Please don't hesitate to call if any issues arise. HPI Consult Data Date of Consult: 01/14/22 HPI Narrative HPI Narrative: EDU WILCOX, is a 26 M who presents with a known history of hypertension chronic kidney disease and presented with shortness of breath as well as anasarca. The patient was noted to have markedly elevated blood pressure and cardiology was called for further evaluation and management. The patient had had a previous echocardiogram performed within the last month which had demonstrated preserved left ventricular systolic function. He has been receiving antihypertensive therapy. It is not clear whether he has been compliant. He denies any chest pain or paroxysmal nocturnal dyspnea though he has had pedal edema as well as generalized swelling. [facility] Medical History Bipolar 1 disorder Bleach ingestion Chronic kidney disease, stage 3b CVA (cerebral vascular accident) GERD (gastroesophageal reflux disease) GI bleed Hypertension Irritable bowel syndrome (IBS) Multiple sclerosis PUD (peptic ulcer disease) Seizure disorder Suicide gesture Tobacco abuse Home Medications aripiprazole 15 mg tablet (Abilify) 15 mg PO BID mood stabilizer 07/30/21 [History Last Taken 07/30/21] clonazepam 1 mg tablet (Klonopin) 1 mg PO DAILY mood stabilizer 07/30/21 [History Last Taken 07/29/21] clonazepam 1 mg tablet (Klonopin) 3 mg PO QHS mood stabilizer 07/30/21 [History Last Taken 07/29/21] levetiracetam 250 mg tablet (Keppra) 250 mg PO DAILY tremors 07/30/21 [History Last Taken 07/30/21] levetiracetam 500 mg tablet (Keppra) 500 mg PO QHS tremors 07/30/21 [History Last Taken 07/29/21] omeprazole 40 mg capsule,delayed release 40 mg PO DAILY gerd 07/30/21 [History Last Taken 07/30/21] prazosin 5 mg capsule 5 mg PO QHS blood pressure/ anxiety 07/30/21 [History Last Taken 07/29/21] sucralfate 1 gram tablet 1 g PO 1HR_ACHS Check with primary doctor 12/05/21 [History Last Taken Unknown] metoprolol tartrate 25 mg tablet 25 mg PO BID #60 tabs 12/07/21 [Rx Last Taken Unknown] spironolactone 25 mg tablet 25 mg PO DAILY #30 tabs 12/07/21 [Rx Last Taken Unknown] hydralazine 50 mg tablet 50 mg PO TID #90 tabs 12/18/21 [Rx Last Taken Unknown] Allergy/AdvReac Type Severity Reaction Status Date / Time No Known Allergies Allergy Verified 01/14/22 02:37 Family History Mother Diabetes Hypertension HLD (hyperlipidemia) Bipolar disorder Father Hypertension HLD (hyperlipidemia) Bipolar disorder Diabetes Surgical History H/O left knee surgery Social History household members: none Smoking Status: Current every day smoker tobacco type: e-cigarettes Smokeless tobacco user: other alcohol intake: current alcohol intake frequency: a few times a week substance use type: does not use ROS Constitutional Constitutional: Denies fever(s) or weight loss Eyes Eyes: Reports systems reviewed and no addt'l complaints, except as documented ENT HEENT: Reports systems reviewed and no addt'l complaints, except as documented Cardiovascular Cardiovascular: Reports edema; Denies chest pain at rest, chest pain with activity, dyspnea at rest, dyspnea on exertion, palpitations or paroxysmal noc turnal dyspnea Respiratory/Chest Respiratory/Chest: Reports dyspnea on exertion; Denies productive cough, shortness of breath at rest or shortness of breath with exertion Gastrointestinal Gastrointestinal: Denies change in bowel habits, nausea, vomiting or weight changes Genitourinary Genitourinary: Denies difficulty urinating Musculoskeletal Musculoskeletal: Denies joint stiffness or muscle weakness Integumentary Integumentary: Denies lesions Neurologic Neurologic: Denies dizziness or syncope Psychiatric Psychiatric: Denies anxiety Endocrine Endocrinology: Denies excessive sweating or fatigue Hematologic/Lymphatic Hematologic/Lymphatic: Denies anemia Allergic/Immunologic Allergic/Immunologic: Denies seasonal rhinorrhea Physical Exam Const alert, oriented x3 and no apparent distress General Appearance: cooperative HEENT hearing grossly normal bilaterally Head and Scalp: atraumatic Eyes EOMs intact bilaterally Neck General: normal visual inspection Chest inspection of chest normal and palpation of chest normal Resp normal respiratory effort Auscultation: clear to auscultation bilaterally Cardio regular rate, regular rhythm, S1 normal heart sound and S2 normal heart sound Jugular Venous Distention: JVD GI normal to inspection, nondistended, normoactive bowel sounds Extremity normal capillary refill and no pedal edema Peripheral Pulses: Yes pulses 2+ throughout and femoral pulses present Skin no rashes or lesions noted Neuro oriented x3 and CN's II-XII intact bilaterally Psych Appearance: grossly normal and appropriate Risk Stratification Risk Stratification Applicable: No Objective Data Vital Signs: Vital Signs Temp Pulse Resp BP Pulse Ox O2 Del Method 98.2 F 102 H 16 171/124 H 99 Room Air 01/14/22 11:53 01/14/22 17:30 01/14/22 17:00 01/14/22 17:30 01/14/22 17:00 01/14/22 17:00 Oxygen Delivery Method Room Air Weight: 246 lb 4.101 oz Body Mass Index (BMI) 36.3 Intake & Output: Intake and Output for Last 24 Hours 01/12/22 01/13/22 01/14/22 23:59 23:59 23:59 Intake Total 723.78 / 723.78 Output Total 2099 / 2099 Balance -1376.22 / -1376.22 Lab / Micro Data Result Diagrams: 01/14/22 03:10 01/14/22 03:10 Labs: Laboratory Results - last 24 hr 01/14/22 03:00: Urine Color Yellow, Urine Clarity Clear, Urine pH 6.0, Ur Specific [place] 1.020, Urine Protein 500 H, Urine Glucose (UA) Normal, Urine Ketones 5 H, Urine Occult Blood 50 H, Urine Nitrite Negative, Urine Bilirubin Negative, Urine Urobilinogen 1 H, Ur Leukocyte Esterase 25 H, Urine RBC 0 SEEN, Urine WBC 5-10 SEEN, Ur Squamous Epith Cells 0 SEEN, Urine Bacteria 3+, Urine Mucus 0 SEEN 01/14/22 03:10: WBC 10.5, RBC 4.84, Hgb 14.0, Hct 44.0, MCV 90.9, MCH 28.9, MCHC 31.8 L, RDW Std Deviation 49.0 H, RDW Coeff of [place] 15.2 H, Plt Count 343, MPV 11.2, Immature Gran % (Auto) 0.500, Neut % (Auto) 75.8 H, Lymph % (Auto) 12.3 L, [place] % (Auto) 9.3, Eos % (Auto) 1.1, Baso % (Auto) 1.0, Absolute Neuts (auto) 8.0 H, Absolute Lymphs (auto) 1.29, Nucleated RBC % 0 01/14/22 03:10: Sodium 137, Potassium 3.3 L, Chloride 102, Carbon Dioxide 24.0, Anion Gap 11, BUN 31 H, Creatinine 3.25 H, Estim Creat Clear Calc 33.84, Est GFR (MDRD) Af Amer 29 L, Est GFR (MDRD) Non-Af 24 L, BUN/Creatinine Ratio 9.5 L, Glucose 109 H, Calcium 8.5, Total Bilirubin 1.60 H, AST 23, ALT 30, Alkaline Phosphatase 94, Troponin I High Sens 118 H, Total Protein 6.6, Albumin 2.5 L, Globulin 4.1, Albumin/Globulin Ratio 0.6 L 01/14/22 03:10: B-Natriuretic Peptide 3812.0 H 01/14/22 07:00: Troponin I High Sens 108 H 01/14/22 09:30: Troponin I High Sens 89 H 01/14/22 11:15: Chlam trachomat DNA PCR Negative, N.gonorrhoeae DNA (PCR) N egative 01/14/22 11:15: Urine Creatinine 165.00, Urine Urea Nitrogen 629 01/14/22 11:38: POC Glucose 118 H Rhythm Strip Rhythm Strip: Sinus Tach Rate: 116 Ectopy: None Cardiology Labs/Tests 01/14/22 03:00: Urine Color Yellow, Urine Clarity Clear, Urine pH 6.0, Ur Specific [place] 1.020, Urine Protein 500 H, Urine Glucose (UA) Normal, Urine Ketones 5 H, Urine Occult Blood 50 H, Urine Nitrite Negative, Urine Bilirubin Negative, Urine Urobilinogen 1 H, Ur Leukocyte Esterase 25 H, Urine RBC 0 SEEN, Urine WBC 5-10 SEEN 01/14/22 03:10: WBC 10.5, RBC 4.84, Hgb 14.0, Hct 44.0, MCV 90.9, MCH 28.9, MCHC 31.8 L, Plt Count 343, MPV 11.2, Immature Gran % (Auto) 0.500, Neut % (Auto) 75.8 H, Lymph % (Auto) 12.3 L, [place] % (Auto) 9.3, Eos % (Auto) 1.1, Baso % (Auto) 1.0, Absolute Neuts (auto) 8.0 H, Nucleated RBC % 0 01/14/22 03:10: Sodium 137, Potassium 3.3 L, Chloride 102, Carbon Dioxide 24.0, Anion Gap 11, BUN 31 H, Creatinine 3.25 H, Est GFR (MDRD) Af Amer 29 L, Est GFR (MDRD) Non-Af 24 L, BUN/Creatinine Ratio 9.5 L, Glucose 109 H, Calcium 8.5, Total Bilirubin 1.60 H 01/14/22 03:10: B-Natriuretic Peptide 3812.0 H Rhythm: EKG: ECHO: Stress Test: Cardiac Cath: PCI: CT Surgery: Holter monitor: EPS: PPM: CXR: Chest CT Scan: Radiography Diagnostic Testing: Radiology Impression Chest X-Ray 01/14/22 03:20 IMPRESSION: Enlarged cardiac silhouette. No confluent airspace disease. Electronically Signed: Damian Patterson MD at 4:00 EDT ,
[2022-01-14] MEDS: Metoprolol Tartrate 100 MG Tablet PO (18:00)
[2022-01-14] MEDS: amLODIPine 5 MG Tablet PO (18:01)
[2022-01-14] MEDS: Doxazosin 4 MG Tablet PO (21:33)
[2022-01-14] MEDS: levETIRAcetam 500 MG Tablet PO (21:33)
[2022-01-14] MEDS: clonazePAM 1 MG Tablet 3 MG PO (21:34)
[2022-01-15] VITALS (30 sets, daily range): BP systolic 104–191; BP diastolic 61–133; PULSE 86–113; RESP 17–28; TEMP 36.1–36.8; O2SAT 92–100
[2022-01-15] MEDS: hydrALAZINE 20 MG/ML Vial 10 MG IV (03:57)
[2022-01-15] MEDS: 0.9% Saline Lock 10 ML Syringe IV ×2 (04:01→21:06)
[2022-01-15] MEDS: Sucralfate 1 GM Tablet PO ×4 (06:06→21:01)
[2022-01-15] MEDS: hydrALAZINE 50 MG Tablet PO ×2 (06:06→10:10)
[2022-01-15 06:43] LABS: Absolute Lymphocyte Count 1.17 X10^3/uL (0.83-4.51); Absolute Neutrophil Count 4.7 X10^3/uL (2.0-7.7); Basophil# 0.08 X10^3/uL; Basophil% 1.1 % (0-1); Eosinophil# 0.35 X10^3/uL; Eosinophils% 4.9 % (0-5); Hematocrit 43.7 % (40-54); Hemoglobin 14.4 g/dL (13.0-16.5); Lymphocyte # 1.17 X10^3/ul (0.83-4.51); Lymphocyte % 16.3 % (19-41); Mean Corpuscular Hgb 29.7 pg (27.0-32.0); Mean Corpuscular Volume 90.1 fL (80-94); Mean Platelet Vol. 11.2 fl (6.2-12.0); Monocyte# 0.83 X10^3/uL; Monocyte% 11.6 % (0-10); NRBC Flagged by Analyzer 0 % (0-5); Neutrophil # 4.72 X10^3/uL (2.7-7.7); Neutrophil % 65.8 % (47-70); Platelet Count 264 K/mm3 (150-450); RBC Distribution Width CV 15.7 % (11.6-14.6); RBC Distribution Width SD 50.4 fl (35.1-43.9); Red Blood Count 4.85 M/mm3 (4.6-6.2); White Blood Count 7.2 K/mm3 (4.4-11.0)
[2022-01-15 07:07] LABS: Anion Gap 10 (5-15); BUN 35 mg/dL (7-18); BUN/Creat Ratio 11.3 RATIO (10-20); Calcium,Total 9.1 mg/dL (8.5-10.1); Chloride 106 mmol/L (98-107); Creatinine, Serum 3.11 mg/dL (0.70-1.30); EST Glomerular Filtration Rate 25 mL/min (>60); Est Glom Filt Rate - Afr Amer 31 mL/min (>60); Estimated Creatinine Clearance 35.36 ml/min; Glucose 106 mg/dL (74-106); Sodium Level 141 mmol/L (136-145)
[2022-01-15] MEDS: ARIPiprazole 5 MG Tablet 15 MG PO ×2 (07:55→21:01)
[2022-01-15] MEDS: Spironolactone 25 MG Tablet PO (07:57)
[2022-01-15] MEDS: Metoprolol Tartrate 100 MG Tablet PO (07:58)
[2022-01-15] MEDS: levETIRAcetam 250 MG Tablet PO (07:58)
[2022-01-15] MEDS: amLODIPine 10 MG Tablet PO ×2 (07:59→21:01)
[2022-01-15] MEDS: Enoxaparin 40 MG/0.4 ML Syringe SC (07:59)
[2022-01-15] MEDS: Pantoprazole Sodium 40 MG Tablet PO (08:00)
[2022-01-15] MEDS: clonazePAM 1 MG Tablet PO (08:07)
[2022-01-15] MEDS: Potassium Chloride Oral Tablet 20 MEQ 60 MEQ PO ×2 (08:08→14:48)
--- NOTE | 2022-01-15 09:32 | PN.HOSP_ITS ---
Subjective Subjective Markedly elevated blood pressures overnight. Cardiology has increased his metoprolol to 100 mg twice daily. Despite this increase, his blood pressure still remain elevated. Patient denies any significant complaints including chest pain or shortness of breath. No issues overnight. He remains on Lasix drip. Reports he has a family history of resistant blood pressure with no specific diagnoses to cause this and diabetes in his father. Objective Data Objective Data Vital Signs: Vital Signs Temp Pulse Resp BP Pulse Ox O2 Del Method 98.3 F 107 H 25 H 182/127 H 98 Room Air 01/15/22 08:00 01/15/22 09:00 01/15/22 09:00 01/15/22 09:00 01/15/22 09:00 01/15/22 09:00 Oxygen Delivery Method Room Air Weight: 109.3 kg Body Mass Index (BMI) 36.3 Intake & Output: Intake and Output for Last 24 Hours 01/13/22 01/14/22 01/15/22 23:59 23:59 23:59 Intake Total 798.78 / 798.78 21.60 / 21.60 Output Total 2525 / 2525 2800 / 2800 Balance -1726.22 / -1726.22 -2778.40 / -2778.40 Lab / Micro Data Result Diagrams: 01/15/22 06:30 01/15/22 06:30 Labs: Laboratory Results - last 24 hr 01/14/22 09:30: Troponin I High Sens 89 H 01/14/22 11:15: Chlam trachomat DNA PCR Negative, N.gonorrhoeae DNA (PCR) Negative 01/14/22 11:15: Urine Creatinine 165.00, Urine Urea Nitrogen 629 01/14/22 11:38: POC Glucose 118 H 01/15/22 06:30: Sodium 141, Potassium 3.0 L, Chloride 106, Carbon Dioxide 25.0, Anion Gap 10, BUN 35 H, Creatinine 3.11 H, Estim Creat Clear Calc 35.36, Est GFR (MDRD) Af Amer 31 L, Est GFR (MDRD) Non-Af 25 L, BUN/Creatinine Ratio 11.3, Glucose 106, Calcium 9.1 01/15/22 06:30: WBC 7.2, RBC 4.85, Hgb 14.4, Hct 43.7, MCV 90.1, MCH 29.7, MCHC 33.0, RDW Std Deviation 50.4 H, RDW Coeff of [place] 15.7 H, Plt Count 264, MPV 11.2, Immature Gran % (Auto) 0.300, Neut % (Auto) 65.8, Lymph % (Auto) 16.3 L, [place] % (Auto) 11.6 H, Eos % (Auto) 4.9, Baso % (Auto) 1.1 H, Absolute Neuts (auto) 4.7, Absolute Lymphs (auto) 1.17, Nucleated RBC % 0 Rhythm Strip Rhythm Strip: Sinus Tach Rate: 116 Ectopy: None Physical Exam Const alert, oriented x3, no apparent distress and well nourished Constitutional Narrative: Obese, Young -[place] male, lying in bed watching television, appears comfortable nontoxic, very pleasant General Appearance: cooperative HEENT head/scalp atraumatic and moist oral mucous membranes HEENT Narrative: Dentition is good, Mallampati is 2-3, no thrush Neck no lymphadenopathy and supple Resp normal respiratory effort, no retractions, no use of accessory muscles and clear to auscultation bilaterally Resp Narrative: mildly diminished breath sounds bibasally, no wheezes or crackles. On room air. Auscultation: Negative for crackles, rales, rhonchi or wheezes Cardio regular rhythm, S1 normal heart sound, S2 normal heart sound, no murmurs, no rub, no clicks and no JVD; Negative for no gallops Cardio Narrative: S4 gallop present, mild tachycardia GI normal to inspection, nondistended, normoactive bowel sounds, soft to palpation and non-tender; Negative for hepatosplenomegaly Extremity Extremity Narrative: Trace to 1+ bilateral lower extremity edema, pedal pulses are 2+, no cyanosis or clubbing Neuro oriented x3, moves all extremities and no focal motor deficits Sensorium / Orientation: awake, alert, oriented to person, oriented to place and oriented to time Speech: speech normal Motor Exam: strength 5/5 throughout Psych affect normal Psych Narrative: Very pleasant and appropriately interactive Assessment & Plan Assessment/Plan (1) Heart failure: (2) Hypertensive emergency: (3) Acute kidney injury superimposed on chronic kidney disease: (4) Anasarca: (5) Hypokalemia: PLAN: Plan Hypertensive emergency -Patient with bilateral lower extremity swelling, scrotal and penile swelling, elevated BNP with acute heart failure -Continue Norvasc at increased dose 10 mg daily, metoprolol at increased dose of 100 mg p.o. twice daily, increase hydralazine from 50 mg 3 times daily to 100 mg 3 times daily and add Imdur 30 mg daily -Continue Lasix drip -Probable renal biopsy on Monday after blood pressure control is improved -? Nephrotic syndrome versus nephritic syndrome -Patient with occult blood and marked proteinuria on his UA -As needed medications also available -Blood pressure continues to fluctuate however improved since admission some HFpEF -Patient with recent echocardiogram on 12/06/2021 that showed an EF of 60%, moderately enlarged LA and moderate concentric LVH -Continue Lasix drip -Patient -4.5 L since admission -Weight is down from 121.6 kg to 109.3 kg -Continue strict I's and O's -Sodium restricted diet initiated especially with elevated renin levels -Daily weights -Stress test done on 12/18/2021 and was negative for any inducible ischemia JULIANNA on CKD stage IIIb -Baseline serum creatinine appears to be around 2.2 -Current serum creatinine 3.11 down from 3.25 despite aggressive diuresis -CH 50, C3, and C4 all remain pending -Immunoglobulins pending -ANCA's are pending -Patient with recent TSH at 3.37 -Renin level was markedly elevated at 12.23 on 12/06/2021 -Aldosterone on was within normal limits on 12/06/2021 -Patient will likely need renal biopsy but per discussion with nephrology they would like to wait until his blood pressure is better controlled -Nephrology following-appreciate input Hypokalemia -Likely related to ongoing diuresis -We will give 60 mill equivalents of Lasix twice daily today and recheck in a.m. -We will also obtain a.m. magnesium level Anasarca -See above -Improving Asymptomatic bacteriuria -3+ bacteria on UA -No reason to obtain culture since patient is asymptomatic Seizure disorder -Continue Keppra GERD/reflux esophagitis -Continue omeprazole -Continue Carafate -Recent EGD 07/31/2021 History of bipolar disorder -Previous suicide attempt -Continue home Abilify and clonazepam -Continue outpatient psychiatry follow-up DVT prophylaxis -Continue enoxaparin CODE STATUS -full code Charges/Coding Visit Charges Inpatient E&M: 12805 Subs Hosp L2
[2022-01-15] MEDS: Isosorbide Mononitrate 30 MG Tablet PO (10:10)
--- NOTE | 2022-01-15 10:37 | PN.CARD_ITS ---
Subjective Subjective Patient seen and evaluated. Appears to be doing well. Blood pressure is still elevated though. Objective Data Vital Signs: Vital Signs Temp Pulse Resp BP Pulse Ox O2 Del Method 98.3 F 106 H 25 H 191/131 H 98 Room Air 01/15/22 08:00 01/15/22 10:10 01/15/22 09:00 01/15/22 10:10 01/15/22 09:00 01/15/22 09:00 Oxygen Delivery Method Room Air Weight: 240 lb 15.444 oz Body Mass Index (BMI) 36.3 Intake & Output: Intake and Output for Last 24 Hours 01/13/22 01/14/22 01/15/22 23:59 23:59 23:59 Intake Total 798.78 / 798.78 511.60 / 511.60 Output Total 2525 / 2525 4850 / 4850 Balance -1726.22 / -1726.22 -4338.40 / -4338.40 Lab / Micro Data Result Diagrams: 01/15/22 06:30 01/15/22 06:30 Labs: Laboratory Results - last 24 hr 01/14/22 09:30: Troponin I High Sens 89 H 01/14/22 11:15: Chlam trachomat DNA PCR Negative, N.gonorrhoeae DNA (PCR) Negative 01/14/22 11:15: Urine Creatinine 165.00, Urine Urea Nitrogen 629 01/14/22 11:38: POC Glucose 118 H 01/15/22 06:30: Sodium 141, Potassium 3.0 L, Chloride 106, Carbon Dioxide 25.0, Anion Gap 10, BUN 35 H, Creatinine 3.11 H, Estim Creat Clear Calc 35.36, Est GFR (MDRD) Af Amer 31 L, Est GFR (MDRD) Non-Af 25 L, BUN/Creatinine Ratio 11.3, Glucose 106, Calcium 9.1 01/15/22 06:30: WBC 7.2, RBC 4.85, Hgb 14.4, Hct 43.7, MCV 90.1, MCH 29.7, MCHC 33.0, RDW Std Deviation 50.4 H, RDW Coeff of [place] 15.7 H, Plt Count 264, MPV 11.2, Immature Gran % (Auto) 0.300, Neut % (Auto) 65.8, Lymph % (Auto) 16.3 L, [facility] % (Auto) 11.6 H, Eos % (Auto) 4.9, Baso % (Auto) 1.1 H, Absolute Neuts (auto) 4.7, Absolute Lymphs (auto) 1.17, Nucleated RBC % 0 Rhythm Strip Rhythm Strip: Sinus Tach Rate: 116 Ectopy: None Cardiology Labs/Tests 01/15/22 06:30: Sodium 141, Potassium 3.0 L, Chloride 106, Carbon Dioxide 25.0, Anion Gap 10, BUN 35 H, Creatinine 3.11 H, Est GFR (MDRD) Af Amer 31 L, Est GFR (MDRD) Non-Af 25 L, BUN/Creatinine Ratio 11.3, Glucose 106, Calcium 9.1 01/15/22 06:30: WBC 7.2, RBC 4.85, Hgb 14.4, Hct 43.7, MCV 90.1, MCH 29.7, MCHC 33.0, Plt Count 264, MPV 11.2, Immature Gran % (Auto) 0.300, Neut % (Auto) 65.8, Lymph % (Auto) 16.3 L, [facility] [facility] % (Auto) 11.6 H, Eos % (Auto) 4.9, Baso % (Auto) 1.1 H, Absolute Neuts (auto) 4.7, Nucleated RBC % 0 Rhythm: EKG: ECHO: Stress Test: Cardiac Cath: PCI: CT Surgery: Holter monitor: EPS: PPM: CXR: Chest CT Scan: Physical Exam Const alert, oriented x3, no apparent distress and well nourished Constitutional Narrative: Obese, Young -[place] male, lying in bed watching television, appears comfortable nontoxic, very pleasant General Appearance: cooperative HEENT head/scalp atraumatic and moist oral mucous membranes HEENT Narrative: Dentition is good, Mallampati is 2-3, no thrush Neck no lymphadenopathy and supple Resp normal respiratory effort, no retractions, no use of accessory muscles and clear to auscultation bilaterally Resp Narrative: mildly diminished breath sounds bibasally, no wheezes or crackles. On room air. Auscultation: Negative for crackles, rales, rhonchi or wheezes Cardio regular rhythm, S1 normal heart sound, S2 normal heart sound, no murmurs, no rub, no clicks and no JVD; Negative for no gallops Cardio Narrative: S4 gallop present, mild tachycardia GI normal to inspection, nondistended, normoactive bowel sounds, soft to palpation and non-tender; Negative for hepatosplenomegaly Extremity Extremity Narrative: Trace to 1+ bilateral lower extremity edema, pedal pulses are 2+, no cyanosis or clubbing Neuro oriented x3, moves all extremities and no focal motor deficits Sensorium / Orientation: awake, alert, oriented to person, oriented to place and oriented to time Speech: speech normal Motor Exam: strength 5/5 throughout Psych affect normal Psych Narrative: Very pleasant and appropriately interactive Assessment & Plan Assessment/Plan (1) Hypertensive emergency: PLAN: He appears to have a hypertensive emergency. His blood pressure still appears resistant to the current medications. Has been checked in both arms. I would recommend the following in addition to the hydralazine 100 mg 3 times daily Discontinue metoprolol Increase amlodipine to 10 mg twice daily Labetalol 400 mg 3 times daily Continue spironolactone 25 mg a day Continue Cardura 4 mg at night Continue isosorbide 30 mg. Will monitor over the next 24 to 48 hours. Will look back at his records to see whether he is ever been worked up for an adrenal issue. (2) Heart failure: PLAN: He is on intravenous diuretics and I will try to wean him off of this over the next 24 hours. He has actually started making some urine at this time. His ejection fraction was noted to be preserved on the most recent echocardiogram. He does have some renal dysfunction and therefore is not a candidate for an ARB NO or Entresto. Thank you for allowing me to participate in the care of your patient. Please don't hesitate to call if any issues arise.
[2022-01-15] MEDS: Furosemide 500 MG in Empty Viaflex 50 mL 1 EACH CONT INF (11:21)
[2022-01-15] MEDS: hydrALAZINE 50 MG Tablet 100 MG PO ×2 (14:48→22:07)
[2022-01-15] MEDS: Labetalol 200 MG Tablet 400 MG PO ×2 (14:49→21:01)
[2022-01-15] MEDS: Doxazosin 4 MG Tablet PO (21:01)
[2022-01-15] MEDS: levETIRAcetam 500 MG Tablet PO (21:02)
[2022-01-15] MEDS: clonazePAM 1 MG Tablet 3 MG PO (21:05)
[2022-01-16] VITALS (17 sets, daily range): BP systolic 102–140; BP diastolic 66–96; PULSE 89–97; RESP 14–24; TEMP 35.8–37.2; O2SAT 93–100
[2022-01-16] MEDS: Labetalol 200 MG Tablet 400 MG PO ×2 (05:01→16:04)
[2022-01-16] MEDS: hydrALAZINE 50 MG Tablet 100 MG PO (05:01)
[2022-01-16] MEDS: 0.9% Saline Lock 10 ML Syringe IV (05:01)
[2022-01-16 05:16] LABS: Anion Gap 9 (5-15); BUN 33 mg/dL (7-18); BUN/Creat Ratio 10.2 RATIO (10-20); Calcium,Total 8.7 mg/dL (8.5-10.1); Chloride 109 mmol/L (98-107); Creatinine, Serum 3.24 mg/dL (0.70-1.30); EST Glomerular Filtration Rate 24 mL/min (>60); Est Glom Filt Rate - Afr Amer 29 mL/min (>60); Estimated Creatinine Clearance 33.94 ml/min; Glucose 107 mg/dL (74-106); Magnesium 1.9 mg/dL (1.6-2.6); Phosphorus 3.9 mg/dL (2.5-4.9); Potassium 3.4 mmol/L (3.5-5.1); Sodium Level 143 mmol/L (136-145)
[2022-01-16] MEDS: Sucralfate 1 GM Tablet PO ×4 (06:54→21:35)
[2022-01-16] MEDS: Potassium Chloride Oral Tablet 20 MEQ 60 MEQ PO (07:08)
[2022-01-16 07:41] LABS: International Normalized Ratio 1.1
--- NOTE | 2022-01-16 09:23 | PCM.PN.CARD ---
Subjective Subjective Seen and evaluated. Blood pressure is doing better. Objective Data Vital Signs: Vital Signs Temp Pulse Resp BP Pulse Ox O2 Del Method 98.1 F 89 16 112/72 98 Room Air 01/16/22 08:00 01/16/22 08:00 01/16/22 08:00 01/16/22 08:00 01/16/22 08:00 01/16/22 08:00 Oxygen Delivery Method Room Air Weight: 230 lb 13.184 oz Body Mass Index (BMI) 36.3 Intake & Output: Intake and Output for Last 24 Hours 01/14/22 01/15/22 01/16/22 23:59 23:59 23:59 Intake Total 798.78 / 798.78 1452.63 / 1452.63 142.40 / 142.40 Output Total 2525 / 2525 7725 / 7725 2725 / 2725 Balance -1726.22 / -1726.22 -6272.37 / -6272.37 -2582.60 / -2582.60 Lab / Micro Data Result Diagrams: 01/15/22 06:30 01/16/22 04:51 Labs: Laboratory Results - last 24 hr 01/16/22 04:51: PT Cancelled, INR Cancelled 01/16/22 04:51: Sodium 143, Potassium 3.4 L, Chloride 109 H, Carbon Dioxide 25.0, Anion Gap 9, BUN 33 H, Creatinine 3.24 H, Estim Creat Clear Calc 33.94, Est GFR (MDRD) Af Amer 29 L, Est GFR (MDRD) Non-Af 24 L, BUN/Creatinine Ratio 10.2, Glucose 107 H, Calcium 8.7, Phosphorus 3.9, Magnesium 1.9 01/16/22 07:10: PT 14.0, INR 1.1 Micro: Microbiology 01/14/22 11:15 Urine, Clean Catch Urine Culture - Final Culture exhibits no growth. Rhythm Strip Rhythm Strip: Sinus Tach Rate: 116 Ectopy: None Cardiology Labs/Tests 01/16/22 04:51: PT Cancelled, INR Cancelled 01/16/22 04:51: Sodium 143, Potassium 3.4 L, Chloride 109 H, Carbon Dioxide 25.0, Anion Gap 9, BUN 33 H, Creatinine 3.24 H, Est GFR (MDRD) Af Amer 29 L, Est GFR (MDRD) Non-Af 24 L, BUN/Creatinine Ratio 10.2, Glucose 107 H, Calcium 8.7, Phosphorus 3.9, Magnesium 1.9 01/16/22 07:10: PT 14.0, INR 1.1 Rhythm: EKG: ECHO: Stress Test: Cardiac Cath: PCI: CT Surgery: Holter monitor: EPS: PPM: CXR: Chest CT Scan: Physical Exam Const alert, oriented x3, no apparent distress and well nourished Constitutional Narrative: Obese, Young -[place] male, lying in bed watching television, appears comfortable nontoxic, very pleasant General Appearance: cooperative HEENT head/scalp atraumatic and moist oral mucous membranes HEENT Narrative: Dentition is good, Mallampati is 2-3, no thrush Neck no lymphadenopathy and supple Resp normal respiratory effort, no retractions, no use of accessory muscles and clear to auscultation bilaterally Resp Narrative: mildly diminished breath sounds bibasally, no wheezes or crackles. On room air. Auscultation: Negative for crackles, rales, rhonchi or wheezes Cardio regular rhythm, S1 normal heart sound, S2 normal heart sound, no murmurs, no rub, no clicks and no JVD; Negative for no gallops Cardio Narrative: S4 gallop present, mild tachycardia GI normal to inspection, nondistended, normoactive bowel sounds, soft to palpation and non-tender; Negative for hepatosplenomegaly Extremity Extremity Narrative: Trace to 1+ bilateral lower extremity edema, pedal pulses are 2+, no cyanosis or clubbing Neuro oriented x3, moves all extremities and no focal motor deficits Sensorium / Orientation: awake, alert, oriented to person, oriented to place and oriented to time Speech: speech normal Motor Exam: strength 5/5 throughout Psych affect normal Psych Narrative: Very pleasant and appropriately interactive Assessment & Plan Assessment/Plan (1) Hypertensive emergency: PLAN: He appears to have a hypertensive emergency. His blood pressure appears to be so much better this morning. I would recommend the following in addition to the hydralazine 100 mg 3 times daily Discontinue metoprolol Increase amlodipine to 10 mg twice daily Labetalol 400 mg 3 times daily Continue spironolactone 25 mg a day Continue Cardura 4 mg at night DisContinue isosorbide 30 mg. Will monitor over the next 24 to 48 hours. Will look back at his records to see whether he is ever been worked up for an adrenal issue. (2) Heart failure: PLAN: He is on intravenous diuretics and I will try to put him on daily oral Lasix in addition to the spironolactone. His ejection fraction was noted to be preserved on the most recent echocardiogram. He does have some renal dysfunction and therefore is not a candidate for an ARB NO or Entresto. Thank you for allowing me to participate in the care of your patient. Please don't hesitate to call if any issues arise.
--- NOTE | 2022-01-16 09:47 | PCM.PN.REN ---
Subjective Subjective No new complaints. Feels somewhat sleepy. Likely because blood pressure is at goal finally. No urinary complaints. Massive urine output. Objective Data Objective Data Vital Signs: Vital Signs Temp Pulse Resp BP Pulse Ox O2 Del Method 98.1 F 89 16 112/72 98 Room Air 01/16/22 08:00 01/16/22 08:00 01/16/22 08:00 01/16/22 08:00 01/16/22 08:00 01/16/22 08:00 Oxygen Delivery Method Room Air Weight: 104.7 kg Body Mass Index (BMI) 36.3 Intake & Output: Intake and Output for Last 24 Hours 01/14/22 01/15/22 01/16/22 23:59 23:59 23:59 Intake Total 798.78 / 798.78 1452.63 / 1452.63 142.40 / 142.40 Output Total 2525 / 2525 7725 / 7725 2725 / 2725 Balance -1726.22 / -1726.22 -6272.37 / -6272.37 -2582.60 / -2582.60 Lab / Micro Data Result Diagrams: 01/15/22 06:30 01/16/22 04:51 Labs: Laboratory Results - last 24 hr 01/16/22 04:51: PT Cancelled, INR Cancelled 01/16/22 04:51: Sodium 143, Potassium 3.4 L, Chloride 109 H, Carbon Dioxide 25.0, Anion Gap 9, BUN 33 H, Creatinine 3.24 H, Estim Creat Clear Calc 33.94, Est GFR (MDRD) Af Amer 29 L, Est GFR (MDRD) Non-Af 24 L, BUN/Creatinine Ratio 10.2, Glucose 107 H, Calcium 8.7, Phosphorus 3.9, Magnesium 1.9 01/16/22 07:10: PT 14.0, INR 1.1 Micro: Microbiology 01/14/22 11:15 Urine, Clean Catch Urine Culture - Final Culture exhibits no growth. Rhythm Strip Rhythm Strip: Sinus Tach Rate: 116 Ectopy: None Physical Exam Narrative Alert awake oriented x 3 no obvious distress no pallor no icterus no JVD s1s2 no murmurs lungs clear abdomen soft no organomegaly no edema no cyanosis Assessment & Plan Assessment/Plan (1) Hypertensive emergency: PLAN: Hypertensive emergency. He says he has been taking all his medications. Previous renin level around 13, aldosterone low. CT abdomen with contrast does not show atrophic kidney. Low suspicion for renal artery stenosis. Significant family history. LVH on echocardiogram. Likely some volume component. bp better (2) Acute kidney injury superimposed on chronic kidney disease: PLAN: Early this year his creatinine was around 1.4. Last admission creatinine was in the mid twos. Currently more than 3. Subacute renal failure which could be hypertensive nephropathy. Urine analysis shows hematuria and proteinuria. Serologies-for some reason double-stranded DNA was read as unreadable. Complements pending. ANCA levels ordered. Previous anticardiolipin antibodies were positive. Eventually may need rheumatology evaluation. Due to hematuria and proteinuria of 1.2 g, kidney biopsy ordered. (3) Anasarca: PLAN: better
--- NOTE | 2022-01-16 10:01 | PCM.PN.HOSP ---
Subjective Subjective Patient's blood pressures are much better and he is complaining of some lightheadedness. His blood pressures are normotensive now and I suspect that his lightheadedness is related to this given the fact that he is likely very high on a regular basis. He has no other complaints at this time. Objective Data Objective Data Vital Signs: Vital Signs Temp Pulse Resp BP Pulse Ox O2 Del Method 98.1 F 89 16 112/72 98 Room Air 01/16/22 08:00 01/16/22 08:00 01/16/22 08:00 01/16/22 08:00 01/16/22 08:00 01/16/22 08:00 Oxygen Delivery Method Room Air Weight: 104.7 kg Body Mass Index (BMI) 36.3 Intake & Output: Intake and Output for Last 24 Hours 01/14/22 01/15/22 01/16/22 23:59 23:59 23:59 Intake Total 798.78 / 798.78 1452.63 / 1452.63 142.40 / 142.40 Output Total 2525 / 2525 7725 / 7725 2725 / 2725 Balance -1726.22 / -1726.22 -6272.37 / -6272.37 -2582.60 / -2582.60 Lab / Micro Data Result Diagrams: 01/15/22 06:30 01/16/22 04:51 Labs: Laboratory Results - last 24 hr 01/16/22 04:51: PT Cancelled, INR Cancelled 01/16/22 04:51: Sodium 143, Potassium 3.4 L, Chloride 109 H, Carbon Dioxide 25.0, Anion Gap 9, BUN 33 H, Creatinine 3.24 H, Estim Creat Clear Calc 33.94, Est GFR (MDRD) Af Amer 29 L, Est GFR (MDRD) Non-Af 24 L, BUN/Creatinine Ratio 10.2, Glucose 107 H, Calcium 8.7, Phosphorus 3.9, Magnesium 1.9 01/16/22 07:10: PT 14.0, INR 1.1 Micro: Microbiology 01/14/22 11:15 Urine, Clean Catch Urine Culture - Final Culture exhibits no growth. Rhythm Strip Rhythm Strip: Sinus Tach Rate: 116 Ectopy: None Physical Exam Const alert, oriented x3, no apparent distress and well nourished Constitutional Narrative: Obese, Young -[place]aced[place] male, lying in bed watching television, appears comfortable nontoxic, very pleasant General Appearance: cooperative HEENT normocephalic, head/scalp atraumatic, hearing grossly normal bilaterally and moist oral mucous membranes Neck no lymphadenopathy and supple Resp normal respiratory effort, no retractions, no use of accessory muscles and clear to auscultation bilaterally Resp Narrative: mildly diminished breath sounds bibasally, no wheezes or crackles. On room air. Auscultation: Negative for crackles, rales, rhonchi or wheezes Cardio regular rate, regular rhythm, S1 normal heart sound, S2 normal heart sound, no murmurs, no rub, no clicks and no JVD; Negative for no gallops Cardio Narrative: S4 gallop present, mild tachycardia GI normal to inspection, nondistended, normoactive bowel sounds, soft to palpation and non-tender; Negative for hepatosplenomegaly Extremity Extremity Narrative: Trace to 1+ bilateral lower extremity edema, pedal pulses are 2+, no cyanosis or clubbing Neuro oriented x3, CN's II-XII intact bilaterally, moves all extremities and no focal motor deficits Sensorium / Orientation: awake, alert, oriented to person, oriented to place and oriented to time Speech: speech normal Motor Exam: strength 5/5 throughout Psych affect normal Psych Narrative: Very pleasant and appropriately interactive Assessment & Plan Assessment/Plan (1) Heart failure: (2) Hypertensive emergency: (3) Acute kidney injury superimposed on chronic kidney disease: (4) Anasarca: (5) Hypokalemia: PLAN: Plan Hypertensive emergency -Patient with bilateral lower extremity swelling, scrotal and penile swelling, elevated BNP with acute heart failure, mild troponin elevation -Blood pressures are much improved -Continue Norvasc at increased dose 10 mg daily, metoprolol was exchanged for labetalol 400 mg 3 times daily by cardiology, continue hydralazine 100 mg 3 times daily and Imdur was discontinued -Discontinue Lasix drip and start Lasix 40 mg IV push twice daily -Renal biopsy is planned for tomorrow -Check INR in a.m. -? Nephrotic syndrome versus nephritic syndrome -Patient with occult blood and marked proteinuria on his UA HFpEF -Patient with recent echocardiogram on 12/06/2021 that showed an EF of 60%, moderately enlarged LA and moderate concentric LVH -Discontinue Lasix drip and start Lasix 40 mg IV push twice daily -Patient - 10 L since admission -Weight is down 16.7 kg -Continue strict I's and O's -Sodium restricted diet initiated especially with elevated renin levels -Daily weights -Stress test done on 12/18/2021 and was negative for any inducible ischemia JULIANNA on CKD stage IIIb -Baseline serum creatinine appears to be around 2.2 -Current serum creatinine 3.3 down from 3.25 despite aggressive diuresis -CH 50, C3, and C4 all remain pending -Immunoglobulins pending -ANCA's are pending -Patient with recent TSH at 3.37 -Renin level was markedly elevated at 12.23 on 12/06/2021 -Aldosterone on was within normal limits on 12/06/2021 -Renal biopsy tomorrow -Nephrology following-appreciate input Hypokalemia -Likely related to ongoing diuresis -Improved with 120 mill equivalents total given yesterday -Repeat 60 mill equivalent dose today -Recheck in a.m. -Magnesium within normal limits Anasarca -See above -Improving -Patient -10 L for hospitalization Asymptomatic bacteriuria -3+ bacteria on UA -No reason to obtain culture since patient is asymptomatic Seizure disorder -Continue Keppra GERD/reflux esophagitis -Continue omeprazole -Continue Carafate -Recent EGD 07/31/2021 History of bipolar disorder -Previous suicide attempt -Continue home Abilify and clonazepam -Continue outpatient psychiatry follow-up DVT prophylaxis -Continue enoxaparin CODE STATUS -full code Charges/Coding Visit Charges Inpatient E&M: 57826 Subs Hosp L2
[2022-01-16] MEDS: Furosemide 20 MG Tablet 60 MG PO (10:31)
[2022-01-16] MEDS: ARIPiprazole 5 MG Tablet 15 MG PO (10:32)
[2022-01-16] MEDS: levETIRAcetam 250 MG Tablet PO (10:32)
[2022-01-16] MEDS: amLODIPine 10 MG Tablet PO (10:32)
[2022-01-16] MEDS: Pantoprazole Sodium 40 MG Tablet PO (10:33)
[2022-01-16] MEDS: Spironolactone 25 MG Tablet PO (10:33)
[2022-01-16] MEDS: Enoxaparin 40 MG/0.4 ML Syringe SC (10:36)
[2022-01-16] MEDS: clonazePAM 1 MG Tablet PO (10:36)
[2022-01-16] MEDS: levETIRAcetam 500 MG Tablet PO (21:36)
[2022-01-17] VITALS (18 sets, daily range): BP systolic 112–149; BP diastolic 79–111; PULSE 92–102; RESP 16–20; TEMP 36.3–36.9; O2SAT 96–100; BMI 34.2
--- NOTE | 2022-01-17 | KID_PTH ---
PATIENT: EDU LARA LOC: [facility] U#:[id number] AGE/SX: 26/M ROOM: [facility] RE01/14/[address]: Dr. Crystal Diaz MD : 1995 BED: 1 DIS: 01/18/2022 SPEC #: [id number] RECD: 01/17/22 11:14 STATUS: NANDA RELillie #: [id number] AVRIL: 01/17/22 00:[address]: Alysha Rico DEPT: SURGICAL PATHOLOGY RECD BY: Omar Mondragon ENTERED: 01/17/22 11:15 SP TYPE: KIDNEY OTHR DR: MD Dr. Veena Hsieh DO Dr. Nana Yaa Koram, MD Dr. 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 Moderate to marked large vessel hypertensive changes, chronic. Renal cortical/parenchymal interstitial fibrosis, marked (50-60%). COMMENT The findings are those of adequate renal parenchyma for histologic evaluation. The most striking changes are those of global glomerular sclerosis of hypertensive/ischemic type. 20 of a total of 84 glomeruli demonstrate global sclerosis and shrunken nature/diameter. The most striking changes are those of hypertensive and malignant-type hypertensive changes within arterioles demonstrating uniform and marked mural thickening with mural myxoid change and with rare onion-skinning identified. Marked mural thickening/advanced hypertensive changes are seen. Large vascular structures (arteries) also demonstrate marked intimal hyperplasia/fibrosis with myxoid changes [severe large vessel hypertensive changes]. Interstitial fibrosis (50-60%) is also identified. Remaining glomeruli demonstrate multifocal early ischemic (vascular pole) collapse. Pattern best fits with hypertensive global glomerulosclerosis, moderate to marked with hypotensive small vascular disease consistent with malignant type hypertension, severe and with large vessel hypertensive changes, moderate to marked. No immune complex deposits/deposition are seen. Clinical correlation is essential. MICROSCOPIC DESCRIPTION LIGHT MICROSCOPY: Excellent biopsy specimen consisting predominantly of renal cortex and up to 57 glomeruli or portions of glomeruli for histologic evaluation. 15 glomeruli demonstrate global sclerosis and overall shrunken nature/diameter. Remaining glomeruli demonstrate focal ischemic (vascular pole) collapse. No epithelial crescents are seen. No increase in mesangial matrix is noted. The most striking changes are those of marked arteriolar change including edematous and myxoid arteriolar al and markedly thickened mural thickening with predominant myxoid change wall in addition to thickened artery al with edematous intima and thickened media. These changes are seen diffusely throughout and rare onion skinning is identified in a rare afferent arteriole; however, the majority of changes are that of marked thickening of arterioles and arteries with myxoid mural change. PAS stain highlights sclerotic glomeruli as well as markedly thickened arterioles and arteries (cross-sections). No marked or definitive protein resorption droplets are seen. Alexander (silver) stain demonstrates normal thickness glomerular basement membranes without ?breaks?, ?splits? or irregular luminal outlines. Vascular pole (ischemic type) collapse is seen in some glomeruli. Thickened arterioles are identified throughout. No epithelial crescents are seen. Trichrome stain demonstrates cortical fibrosis which is estimated at 50% (50-60%). Marked arteriolar mural myxoid change is highlighted throughout the biopsy specimen as are sclerotic glomeruli and arterial intimal myxoid change. Ischemic collapse and some glomeruli is noted. No fuchsinophilic deposits are identified. IMMUNOFLUORESCENCE: Tissue submitted for immunofluorescence microscopy demonstrates renal cortex and medulla and up to 20 glomeruli or portions of glomeruli for histologic evaluation. Three glomeruli demonstrate global sclerosis and overall shrunken nature/diameter. No epithelial crescents are seen. IgG, C3, C1q and fibrin are negative for staining in glomeruli, tubules and vascular structures. IgM demonstrates a focal nonspecific ?trapping? within glomeruli, but is negative in vascular structures and interstitium. Trapping is related to ischemic-type collapse glomeruli. IgA demonstrates 1+ positivity within tubules, but is negative in vascular structures and glomeruli. Albumin demonstrates 2+ positivity within tubular resorption droplets within intact tubular epithelial cell cytoplasm, but is negative in vascular structures and glomeruli. ELECTRON MICROSCOPY: Toluidine blue-stained section (thick/?global supply chain vice president? sections) reveal renal cortical parenchyma and up to 5 glomeruli or portions of glomeruli for histologic evaluation. Two glomeruli demonstrate global sclerosis and overall shrunken nature/diameter while arteriole are cross-section demonstrates mural myxoid change, marked. Interstitial fibrosis is identified with edema. Additional glomeruli demonstrate focal (early) ischemic [vascular pole] collapse. Ultrastructure examination confirms he mural myxoid change seen within arteriole are branches (marrow). Glomeruli demonstrate normal thickness basement membranes and are negative for electron dense deposits. No inflammatory infiltrate is seen. Negative for epithelial crescents. Negative for glomerular inflammatory infiltrate. GROSS DESCRIPTION The specimen is sent entirely to [facility] for diagnosis. Received in transport medium labeled with the patient?s name and ?left kidney,? the specimen consists of four cylindrical cores of medrano-yellow parenchyma that are 1 to 1.3 cm in length. Assorter portion is submitted for immunofluorescent microscopy. Assorter portion is submitted for electron microscopy. The remainder of the specimen is entirely submitted as A1.
[2022-01-17] MEDS: Sucralfate 1 GM Tablet PO ×4 (06:37→21:16)
[2022-01-17 06:39] LABS: Basophil# 0.07 X10^3/uL; Eosinophil# 0.38 X10^3/uL; Eosinophils% 5.6 % (0-5); Hematocrit 39.4 % (40-54); Lymphocyte % 19.3 % (19-41); Mean Corp Hgb Conc 30.5 g/dL (32-36); Mean Corpuscular Hgb 29.2 pg (27.0-32.0); Mean Corpuscular Volume 95.9 fL (80-94); Mean Platelet Vol. 11.4 fl (6.2-12.0); Monocyte# 0.97 X10^3/uL; Monocyte% 14.4 % (0-10); NRBC Flagged by Analyzer 0 % (0-5); Neutrophil # 4.01 X10^3/uL (2.7-7.7); Neutrophil % 59.4 % (47-70); Platelet Count 290 K/mm3 (150-450); Red Blood Count 4.11 M/mm3 (4.6-6.2); White Blood Count 6.8 K/mm3 (4.4-11.0)
[2022-01-17 07:00] LABS: Anion Gap 8 (5-15); BUN 39 mg/dL (7-18); BUN/Creat Ratio 11.2 RATIO (10-20); Calcium,Total 9.1 mg/dL (8.5-10.1); Chloride 108 mmol/L (98-107); Creatinine, Serum 3.48 mg/dL (0.70-1.30); EST Glomerular Filtration Rate 22 mL/min (>60); Est Glom Filt Rate - Afr Amer 27 mL/min (>60); Glucose 93 mg/dL (74-106); Potassium 4.1 mmol/L (3.5-5.1); Sodium Level 142 mmol/L (136-145)
[2022-01-17] MEDS: fentaNYL 100 MCG/2 ML Ampul IV (09:00)
[2022-01-17] MEDS: Midazolam 2 MG/2 ML Syringe IV (09:00)
--- NOTE | 2022-01-17 09:00 | CT_ITS ---
PROCEDURE: CT GUIDED PERCUTANEOUS KIDNEY BIOPSY. DATE: 01/17/2022. INDICATION: Male, 26 years old. Acute renal failure. PHYSICIAN: Matt Harris M.D. MEDICATIONS: 2 mg of VERSED and 50 mcg of FENTANYL intravenously. Conscious sedation was performed. Conscious sedation was started at 9:00 AM and terminated at 9:15 AM. The patient was independently monitored by the department nurse. ACCESS SITE: Lower pole of the left kidney. NEEDLE: 18-gauge core biopsy needle system. SPECIMEN: 4 18-gauge cores. EBL: None. COMPLICATIONS: None immediate. RADIATION DOSAGE (If Supplied By Facility): CTDIvol = ( 16.5 ) mGy, DLP = ( 358.75 ) mGycm. Individualized dose optimization techniques were utilized. The risks, benefits, and alternatives to the procedure and sedation were explained to the patient. The specific risk of hemorrhage requiring further treatment or intervention was detailed and accepted. Written informed consent was obtained. The patient was placed on the CT table in the prone position. Multiple axial images were obtained from the lung base through the caudal extent of the kidneys. An appropriate entry site was identified and a yadira made on the skin. The skin overlying the [ left] posterior flank was prepped and draped in sterile fashion. 1% lidocaine was administered subcutaneously for local anesthesia. Initially, a 22 gauge needle was advanced and CT images confirmed good needle position. The 22 gauge needle was then exchanged for an 17 gauge introducer needle which was advanced. Repeat CT images confirmed good needle trajectory and tip position. The introducer needle was then advanced into the periphery of the inferior renal pole, and CT images were again obtained to confirm exact tip location. The inner stylet of the introducer needle was then removed and an 18 gauge coaxial needle was advanced thru the introducer needle and biopsy performed. A total of [ 4] passes were performed and the specimen collected was sent to Pathology for further evaluation. The needle was withdrawn. Hemostasis was achieved with manual compression and a sterile dressing was applied. Repeat CT images of the biopsy area was performed which demonstrated no gross bleeding or hematoma. The patient tolerated the procedure well without immediate complications. The patient was transported to the [floor/recovery area] in stable condition. CT/Biopsy/Inj or Needle Placement IMPRESSION: Successful CT guided percutaneous kidney biopsy. Conscious sedation was performed. The patient tolerated the procedure well. Electronically Signed: Matt Harris MD at 9:40 EDT ,
[2022-01-17] MEDS: Lidocaine 2% (10 ml mdv) 10 ML Vial INFILT (09:10)
[2022-01-17] MEDS: Furosemide 20 MG Tablet 60 MG PO (10:46)
[2022-01-17] MEDS: Spironolactone 25 MG Tablet PO (10:46)
[2022-01-17] MEDS: ARIPiprazole 5 MG Tablet 15 MG PO ×2 (10:46→21:16)
[2022-01-17] MEDS: amLODIPine 10 MG Tablet PO (10:46)
[2022-01-17] MEDS: levETIRAcetam 250 MG Tablet PO (10:46)
[2022-01-17] MEDS: Pantoprazole Sodium 40 MG Tablet PO (10:46)
[2022-01-17] MEDS: clonazePAM 1 MG Tablet PO (10:46)
--- NOTE | 2022-01-17 10:58 | PN.RENAL_ITS ---
Subjective Subjective Feels fine, just had a kidney biopsy, no pain, wants to go home. Denies shortness of breath, PND, orthopnea, no visible fluid retention. Objective Data Objective Data Vital Signs: Vital Signs Temp Pulse Resp BP Pulse Ox O2 Del Method O2 Flow Rate 98.2 F 102 H 16 143/111 H 100 Room Air 2 01/17/22 10:45 01/17/22 10:45 01/17/22 10:45 01/17/22 10:45 01/17/22 10:45 01/17/22 10:45 01/17/22 09:00 Oxygen Flow Rate (L/min) [0915 2 ] Oxygen Flow Rate (L/min) [0910 2 ] Oxygen Flow Rate (L/min) [0905 2 ] Oxygen Flow Rate (L/min) [0900 2 ] Oxygen Delivery Method [0915] Nasal Cannula Oxygen Delivery Method [0910] Nasal Cannula Oxygen Delivery Method [0905] Nasal Cannula Oxygen Delivery Method [0900] Nasal Cannula Oxygen Delivery Method Room Air Weight: 105 kg Body Mass Index (BMI) 34.2 Intake & Output: Intake and Output for Last 24 Hours 01/15/22 01/16/22 01/17/22 23:59 23:59 23:59 Intake Total 1452.63 / 1452.63 752.40 / 952.40 400 / 400 Output Total 7725 / 7725 2725 / 2725 Balance -6272.37 / -6272.37 -1972.60 / -1772.60 400 / 400 Lab / Micro Data Attestation: I reviewed the patient's lab results. Result Diagrams: 01/17/22 05:45 01/17/22 05:45 Labs: Laboratory Results - last 24 hr 01/17/22 05:45: Sodium 142, Potassium 4.1, Chloride 108 H, Carbon Dioxide 26.0, Anion Gap 8, BUN 39 H, Creatinine 3.48 H, Estim Creat Clear Calc 31.60, Est GFR (MDRD) Af Amer 27 L, Est GFR (MDRD) Non-Af 22 L, BUN/Creatinine Ratio 11.2, Glucose 93, Calcium 9.1 01/17/22 05:45: WBC 6.8, RBC 4.11 L, Hgb 12.0 L, Hct 39.4 L, MCV 95.9 H D, MCH 29.2, MCHC 30.5 L D, RDW Std Deviation 56.0 H, RDW Coeff of [place] 16.0 H, Plt Count 290, MPV 11.4, Immature Gran % (Auto) 0.300, Neut % (Auto) 59.4, Lymph % (Auto) 19.3, [place] % (Auto) 14.4 H, Eos % (Auto) 5.6 H, Baso % (Auto) 1.0, Absolute Neuts (auto) 4.0, Absolute Lymphs (auto) 1.30, Nucleated RBC % 0 Micro: Microbiology 01/14/22 11:15 Urine, Clean Catch Urine Culture - Final Culture exhibits no growth. Radiography Diagnostic Testing: Radiology Impression Biopsy CT 01/17/22 09:00 IMPRESSION: Successful CT guided percutaneous kidney biopsy. Conscious sedation was performed. The patient tolerated the procedure well. Electronically Signed: Matt Harris MD at 9:40 EDT , Rhythm Strip Rhythm Strip: Sinus Tach Rate: 116 Ectopy: None Physical Exam Const alert, oriented x3 and no apparent distress General Appearance: well developed Orientation / Consciousness: oriented to person, oriented to place and oriented to time HEENT normocephalic Head and Scalp: atraumatic Eyes PERRL Neck no lymphadenopathy Resp no use of accessory muscles and clear to auscultation bilaterally Cardio regular rate, no murmurs and no rub Peripheral Pulses: pulses 2+ throughout GI Auscultation: normoactive bowel sounds Neuro Sensorium / Orientation: awake and alert Assessment & Plan Assessment/Plan (1) Hypertensive emergency: PLAN: Blood pressure is much better, I do believe it is maybe a little bit too too low, contributing to worsening creatinine. I do suspect that biopsy is going to show acute hypertensive nephropathy. I definitely would not increase his blood pressure medications at this point. (2) Acute kidney injury superimposed on chronic kidney disease: PLAN: As his blood pressure came down, his creatinine went up, and continues to worsen. The increases not significant though, and he does not need any intervention. Once creatinine reaches plateau, he can be discharged.
--- NOTE | 2022-01-17 11:47 | PCM.PN.HOSP ---
Subjective Subjective Follow-up on acute hypertensive emergency/acute kidney injury/acute exacerbation of heart failure preserved EF: Patient seen and examined. He denied plaints except he does not have his eye contacts to be able to see. He had a kidney biopsy. No other acute events overnight Objective Data Objective Data Vital Signs: Vital Signs Temp Pulse Resp BP Pulse Ox O2 Del Method O2 Flow Rate 98.2 F 102 H 16 143/111 H 100 Room Air 2 01/17/22 10:45 01/17/22 10:45 01/17/22 10:45 01/17/22 10:45 01/17/22 10:45 01/17/22 10:45 01/17/22 09:00 Oxygen Flow Rate (L/min) [0915 2 ] Oxygen Flow Rate (L/min) [0910 2 ] Oxygen Flow Rate (L/min) [0905 2 ] Oxygen Flow Rate (L/min) [0900 2 ] Oxygen Delivery Method [0915] Nasal Cannula Oxygen Delivery Method [0910] Nasal Cannula Oxygen Delivery Method [0905] Nasal Cannula Oxygen Delivery Method [0900] Nasal Cannula Oxygen Delivery Method Room Air Weight: 105 kg Body Mass Index (BMI) 34.2 Intake & Output: Intake and Output for Last 24 Hours 01/15/22 01/16/22 01/17/22 23:59 23:59 23:59 Intake Total 1452.63 / 1452.63 752.40 / 952.40 400 / 400 Output Total 7725 / 7725 2725 / 2725 Balance -6272.37 / -6272.37 -1972.60 / -1772.60 400 / 400 Lab / Micro Data Result Diagrams: 01/17/22 05:45 01/17/22 05:45 Labs: Laboratory Results - last 24 hr 01/17/22 05:45: Sodium 142, Potassium 4.1, Chloride 108 H, Carbon Dioxide 26.0, Anion Gap 8, BUN 39 H, Creatinine 3.48 H, Estim Creat Clear Calc 31.60, Est GFR (MDRD) Af Amer 27 L, Est GFR (MDRD) Non-Af 22 L, BUN/Creatinine Ratio 11.2, Glucose 93, Calcium 9.1 01/17/22 05:45: WBC 6.8, RBC 4.11 L, Hgb 12.0 L, Hct 39.4 L, MCV 95.9 H D, MCH 29.2, MCHC 30.5 L D, RDW Std Deviation 56.0 H, RDW Coeff of [place] 16.0 H, Plt Count 290, MPV 11.4, Immature Gran % (Auto) 0.300, Neut % (Auto) 59.4, Lymph % (Auto) 19.3, [place] % (Auto) 14.4 H, Eos % (Auto) 5.6 H, Baso % (Auto) 1.0, Absolute Neuts (auto) 4.0, Absolute Lymphs (auto) 1.30, Nucleated RBC % 0 Micro: Microbiology 01/14/22 11:15 Urine, Clean Catch Urine Culture - Final Culture exhibits no growth. Radiography Diagnostic Testing: Radiology Impression Biopsy CT 01/17/22 09:00 IMPRESSION: Successful CT guided percutaneous kidney biopsy. Conscious sedation was performed. The patient tolerated the procedure well. Electronically Signed: Matt Harris MD at 9:40 EDT Reading Location ID and State: [facility] / [place] , Service support , Rhythm Strip Rhythm Strip: Sinus Tach Rate: 116 Ectopy: None Physical Exam Narrative Physical exam: General: Alert, Oriented x3, Cooperative, No apparent distress HEENT: Atraumatic Oral: Moist Mucosa Neck: Supple Lungs: Clear to auscultation Cardiovascular: HS I+II, regular, no murmurs Abdomen: Bowel Sounds Present, Soft, Non Tender Extremities: No edema Skin: No rashes, No breakdown Neurological: Grossly intact Psych/Mental Status: Appropriate Assessment & Plan Assessment/Plan (1) Heart failure: (2) Hypertensive emergency: (3) Acute kidney injury superimposed on chronic kidney disease: (4) Anasarca: (5) Hypokalemia: PLAN: Plan 1. Acute hypertensive emergency - blood pressure slightly improved Continue on amlodipine, spironolactone, doxazosin, hydralazine, labetalol, 2. Acute HFpEF, EF 60%, appears euvolemic Continue with Lasix 60 mg p.o. daily 3. JULIANNA on CKD stage IIIb, Cr today is 3.48 Previous creatinine in December was 2.4-2.7 Low suspicion for renal artery stenosis. CT of the abdomen pelvis with contrast does not show atrophic kidney. Work-up for other 8 including-CH 50, C3, and C4, immunoglobulin, ANCA are pending all remain pending Renal biopsy done today Nephrology following Repeat blood work in a.m. 4. Hypokalemia, resolved 5. Anasarca, appears resolved 6. Seizure disorder, continue Keppra 7. GERD/reflux esophagitis, continue PPI 8. History of bipolar disorder, continue Abilify and clonazepam 9. DVT prophylaxis - Lovenox SC Charges/Coding Visit Charges Inpatient E&M: 94023 Subs Hosp L2
[2022-01-17 15:07] LABS: Complement C3 123 mg/dL (82-167)
[2022-01-17 17:07] LABS: Albumin 2.5 g/dL (2.9-4.4); Alpha-1-Globulins 0.3 g/dL (0.0-0.4); Alpha-2-Globulins 0.7 g/dL (0.4-1.0); Cytoplasmic Ab (C-ANCA) <1:20 titer (Neg:<1:20); Gamma Globulin 1.2 g/dL (0.4-1.8); Immunoglobulin A 237 mg/dL (90-386); Immunoglobulin G 1130 mg/dL (603-1613); Immunoglobulin M 77 mg/dL (20-172); PROEL- TOTAL PROTEIN 5.8 g/dL (6.0-8.5)
[2022-01-17] MEDS: levETIRAcetam 500 MG Tablet PO (21:16)
[2022-01-17] MEDS: Labetalol 200 MG Tablet PO (21:16)
[2022-01-17] MEDS: hydrALAZINE 50 MG Tablet PO (21:17)
[2022-01-17] MEDS: Doxazosin 4 MG Tablet PO (21:17)
[2022-01-17] MEDS: amLODIPine 5 MG Tablet PO (21:22)
[2022-01-17] MEDS: clonazePAM 1 MG Tablet 3 MG PO (21:22)
[2022-01-18 03:00] VITALS: PULSE 91
[2022-01-18 03:11] VITALS: BP 125/95; PULSE 92; RESP 20; TEMP 36.4; O2SAT 98
[2022-01-18 06:11] VITALS: BP 128/91; PULSE 91
[2022-01-18] MEDS: Sucralfate 1 GM Tablet PO ×2 (06:11→11:39)
[2022-01-18] MEDS: Labetalol 200 MG Tablet PO (06:11)
[2022-01-18] MEDS: hydrALAZINE 50 MG Tablet PO (06:11)
[2022-01-18 06:58] VITALS: PULSE 90
[2022-01-18 07:13] VITALS: O2SAT 96
[2022-01-18 07:45] LABS: Anion Gap 10 (5-15); BUN 36 mg/dL (7-18); BUN/Creat Ratio 10.5 RATIO (10-20); Chloride 107 mmol/L (98-107); Creatinine, Serum 3.43 mg/dL (0.70-1.30); EST Glomerular Filtration Rate 23 mL/min (>60); Est Glom Filt Rate - Afr Amer 27 mL/min (>60); Estimated Creatinine Clearance 32.06 ml/min; Glucose 76 mg/dL (74-106); Potassium 4.4 mmol/L (3.5-5.1); Sodium Level 139 mmol/L (136-145)
[2022-01-18] MEDS: Furosemide 20 MG Tablet 60 MG PO (08:50)
[2022-01-18] MEDS: Pantoprazole Sodium 40 MG Tablet PO (08:50)
[2022-01-18] MEDS: clonazePAM 1 MG Tablet PO (08:50)
[2022-01-18] MEDS: ARIPiprazole 5 MG Tablet 15 MG PO (08:51)
[2022-01-18] MEDS: Enoxaparin 40 MG/0.4 ML Syringe SC (08:51)
[2022-01-18] MEDS: Spironolactone 25 MG Tablet PO (08:52)
[2022-01-18] MEDS: amLODIPine 5 MG Tablet PO (08:52)
[2022-01-18] MEDS: levETIRAcetam 250 MG Tablet PO (08:52)
[2022-01-18 09:10] VITALS: BP 131/96; PULSE 90; RESP 18; TEMP 36.5; O2SAT 98
--- NOTE | 2022-01-18 09:56 | PCM.PN.REN ---
Subjective Subjective Follow-up on hypertensive urgency with acute kidney injury. He feels good. Denies any shortness of breath, PND, orthopnea. He wants to go home Objective Data Objective Data Vital Signs: Vital Signs Temp Pulse Resp BP Pulse Ox O2 Del Method O2 Flow Rate 97.6 F L 91 20 H 128/91 H 96 Room Air 2 01/18/22 03:11 01/18/22 06:11 01/18/22 03:11 01/18/22 06:11 01/18/22 07:13 01/18/22 07:13 01/17/22 09:00 Oxygen Flow Rate (L/min) [0915 2 ] Oxygen Flow Rate (L/min) [0910 2 ] Oxygen Flow Rate (L/min) [0905 2 ] Oxygen Flow Rate (L/min) [0900 2 ] Oxygen Delivery Method [0915] Nasal Cannula Oxygen Delivery Method [0910] Nasal Cannula Oxygen Delivery Method [0905] Nasal Cannula Oxygen Delivery Method [0900] Nasal Cannula Oxygen Delivery Method Room Air Weight: 106.2 kg Body Mass Index (BMI) 34.2 Intake & Output: Intake and Output for Last 24 Hours 01/16/22 01/17/22 01/18/22 23:59 23:59 23:59 Intake Total 752.40 / 952.40 1580 / 1580 100 / 100 Output Total 2725 / 2725 Balance -1972.60 / -1772.60 1580 / 1580 100 / 100 Lab / Micro Data Result Diagrams: 01/17/22 05:45 01/18/22 06:37 Labs: Laboratory Results - last 24 hr 01/18/22 06:37: Sodium 139, Potassium 4.4, Chloride 107, Carbon Dioxide 22.0, Anion Gap 10, BUN 36 H, Creatinine 3.43 H, Estim Creat Clear Calc 32.06, Est GFR (MDRD) Af Amer 27 L, Est GFR (MDRD) Non-Af 23 L, BUN/Creatinine Ratio 10.5, Glucose 76, Calcium 9.0 Micro: Microbiology 01/14/22 11:15 Urine, Clean Catch Urine Culture - Final Culture exhibits no growth. Rhythm Strip Rhythm Strip: Sinus Tach Rate: 116 Ectopy: None Physical Exam Const alert and oriented x3 HEENT normocephalic Eyes no scleral icterus Neck no lymphadenopathy Resp no use of accessory muscles and clear to auscultation bilaterally Cardio regular rate, no murmurs and no rub GI non-tender Skin no rashes or lesions noted Psych cooperative Assessment & Plan Assessment/Plan (1) Hypertensive emergency: PLAN: Blood pressure is acceptable, much better. (2) Acute kidney injury superimposed on chronic kidney disease: PLAN: His creatinine has reached plateau, he is making good urine, no acidosis, electrolytes are fine. It is okay to discharge, he can follow-up with us on his kidney biopsy as well as kidney function and the blood pressure in about a week or 2.
[2022-01-18 10:34] LABS: Perinuclear Ab (P-ANCA) <1:20 titer (Neg:<1:20)
--- NOTE | 2022-01-18 10:36 | DCINST_ITS ---
Discharge Instructions Diet Discharge Diet: Low fat / Low cholesterol and 2000 mg Sodium Diet Activity Discharge Activity: Return to Normal Activity Follow Up Care Test Results: Test results from this visit will be discussed in further detail at your follow- up appointment, if applicable. 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 Follow-up with your primary care doctor within a week. You will need repeat blood work to check on your kidney function. Discharge Orders/Prescriptions Prescriptions: New labetalol 200 mg Tablet 200 mg PO TID 30 Days Qty: 90 0RF amlodipine 5 mg Tablet 5 mg PO BID 30 Days Qty: 60 0RF furosemide 20 mg Tablet 60 mg PO DAILY 30 Days Qty: 90 0RF Continued levetiracetam [Keppra] 500 mg Tablet 500 mg PO QHS clonazepam [Klonopin] 1 mg Tablet 1 mg PO DAILY clonazepam [Klonopin] 1 mg Tablet 3 mg PO QHS prazosin 5 mg Capsule 5 mg PO QHS levetiracetam [Keppra] 250 mg Tablet 250 mg PO DAILY aripiprazole [Abilify] 15 mg Tablet 15 mg PO BID omeprazole 40 mg Capsule,Delayed Release(Dr/Ec) 40 mg PO DAILY sucralfate 1 gram tablet 1 g PO 1HR_ACHS spironolactone 25 mg Tablet 25 mg PO DAILY Qty: 30 0RF hydralazine 50 mg Tablet 50 mg PO TID Qty: 90 1RF Discontinued metoprolol tartrate 25 mg Tablet 25 mg PO BID Qty: 60 0RF Referrals / Follow Up: Rashawn Camargo MD [Med Staff - Active Staff] - Within 1 Month Soni Sanchez MD [Med Staff - Consulting] - Within 1 Week Care Physician,No Primary [Primary Care Provider] - In 1 Week Disposition Disposition (needs filled in before D/C Order can be placed): Home, Self Care
--- NOTE | 2022-01-18 11:00 | CASEMGMT ---
Per Freddy RN, pt did agree to pt link program at discharge. Pt voices no further questions/concerns/needs with discharge. Nik AVILA CM
--- NOTE | 2022-01-18 11:51 | PHA.DC.MC ---
Pharmacy Service has performed discharge medication reconciliation and counseling for this patient. Patient requested meds to beds, this [facility] called retail and made this request. 1. AMLODIPINE 5MG PO BID 2. FUROSEMIDE 60MG PO DAILY 3. LABETALOL 200MG PO TID The patient's discharge medication list was reviewed for discrepancies and discrepancies were resolved. Home Medications aripiprazole 15 mg tablet (Abilify) 15 mg PO BID mood stabilizer 07/30/21 clonazepam 1 mg tablet (Klonopin) 1 mg PO DAILY mood stabilizer 07/30/21 clonazepam 1 mg tablet (Klonopin) 3 mg PO QHS mood stabilizer 07/30/21 levetiracetam 250 mg tablet (Keppra) 250 mg PO DAILY tremors 07/30/21 levetiracetam 500 mg tablet (Keppra) 500 mg PO QHS tremors 07/30/21 omeprazole 40 mg capsule,delayed release 40 mg PO DAILY gerd 07/30/21 prazosin 5 mg capsule 5 mg PO QHS blood pressure/ anxiety 07/30/21 sucralfate 1 gram tablet 1 g PO 1HR_ACHS Check with primary doctor 12/05/21 spironolactone 25 mg tablet 25 mg PO DAILY #30 tabs 12/07/21 hydralazine 50 mg tablet 50 mg PO TID #90 tabs 12/18/21 amlodipine 5 mg tablet 5 mg PO BID 30 days #60 tabs 01/18/22 furosemide 20 mg tablet 60 mg PO DAILY 30 days #90 tabs 01/18/22 labetalol 200 mg tablet 200 mg PO TID 30 days #90 tabs 01/18/22 The patient was counseled on the following discharge medications and changes in medications for homegoing were reviewed. The Reason for Use, instructions for use, and potential side effects were reviewed for all new medications. The patient's questions regarding all of their medications were answered. The patient was able to verbally demonstrate an understanding of their discharge medications. Patient counseled by pharmacy technicianSydney.
--- NOTE | 2022-01-18 11:56 | PCM.DC.SUM ---
Providers Date of Admission: 01/14/22 Date of Discharge: 01/18/22 Primary Care Physician: Aleena Primary Care Phys Consultations 01/14/22 06:18 Consult: Nephrology Routine Consulting Provider: Soni Sanchez Reason for Consult: julianna on CKD EMERGENT Consult: No MD Notified: Yes Date Notified: 01/14/22 Time Notified: 04:30 Method of Notification: Text Reason For Visit: ACUTE HEART FAILURE Diagnosis Discharge Diagnosis (1) Hypertensive emergency: Status: Acute Code(s): I16.1 - Hypertensive emergency (2) Acute kidney injury superimposed on chronic kidney disease: Status: Chronic Code(s): N17.9 - Acute kidney failure, unspecified; N18.9 - Chronic kidney disease, unspecified Plan 1. Acute hypertensive emergency 2. Acute HFpEF, EF 60% 3. JULIANNA on CKD stage IIIb 4. Hypokalemia 5. Anasarca 6. Seizure disorder 7. GERD/reflux esophagitis 8. History of bipolar disorder Medications at Discharge Home Medications aripiprazole 15 mg tablet (Abilify) 15 mg PO BID mood stabilizer 07/30/21 clonazepam 1 mg tablet (Klonopin) 1 mg PO DAILY mood stabilizer 07/30/21 clonazepam 1 mg tablet (Klonopin) 3 mg PO QHS mood stabilizer 07/30/21 levetiracetam 250 mg tablet (Keppra) 250 mg PO DAILY tremors 07/30/21 levetiracetam 500 mg tablet (Keppra) 500 mg PO QHS tremors 07/30/21 omeprazole 40 mg capsule,delayed release 40 mg PO DAILY gerd 07/30/21 prazosin 5 mg capsule 5 mg PO QHS blood pressure/ anxiety 07/30/21 sucralfate 1 gram tablet 1 g PO 1HR_ACHS Check with primary doctor 12/05/21 spironolactone 25 mg tablet 25 mg PO DAILY #30 tabs 12/07/21 hydralazine 50 mg tablet 50 mg PO TID #90 tabs 12/18/21 amlodipine 5 mg tablet 5 mg PO BID 30 days #60 tabs 01/18/22 furosemide 20 mg tablet 60 mg PO DAILY 30 days #90 tabs 01/18/22 labetalol 200 mg tablet 200 mg PO TID 30 days #90 tabs 01/18/22 Hospital Course Operations None Procedures - (Renal biopsy 01/17/22) Summary of Care Provided Minutes Spent on Discharge: 40 Hospital Course: 26-year-old male with a past medical history of CKD stage IIIb, hypertension who comes in with complaints of worsening lower extremity edema, shortness of breath and found to have hypertensive emergency. His blood patient was 209/164, his admitting creatinine was 3.25 from a baseline of about 2.2. He had elevated BNP of 3812. Admitting chest x-ray had shown an enlarged cardiac silhouette. UA showed occult blood and marked proteinuria. Nephrology and cardiology were consulted from the ED. Patient was managed in the ICU on Lasix drip.Patient's renal function continued to trend up. History of recent running and aldosterone levels were within normal limits. TSH was normal. CH 50, C3, C4 were pending at time of discharge. Several changes were made to his blood pressure medications. Patient was transferred out of ICU. He underwent renal biopsy on 01/17/22. Patient had an episode of dizziness and diaphoresis when his blood pressures dropped below 140s. Changes were made to his blood pressure medications. Creatinine remained stable. Patient was discharged home to follow-up with outpatient nephrology, cardiology as well as primary care doctor within 2 weeks. Physical Exam Narrative Physical exam: General: Alert, Oriented x3, Cooperative, No apparent distress HEENT: Atraumatic Oral: Moist Mucosa Neck: Supple Lungs: Clear to auscultation Cardiovascular: HS I+II, regular, no murmurs Abdomen: Bowel Sounds Present, Soft, Non Tender Extremities: No edema Skin: No rashes, No breakdown Neurological: Grossly intact Psych/Mental Status: Appropriate Weight / BMI Weight Weight: 106.2 kg Body Mass Index (BMI) 34.2 ABG / Lab / Microbiology Data Result Diagrams: 01/17/22 05:45 01/18/22 06:37 Laboratory: Laboratory Results - last 24 hr 01/15/22 06:30: Total Protein (PEP) 5.8 L, Globulin 3.3, IgG 1130, IgA 237, IgM 77, Immunofixation Screen Comment, Albumin (TABATHA) 2.5 L, Albumin/Globulin (TABATHA) 0.8, Ikcco-2-Gjqlwpais TABATHA 0.3, Egaxl-5-Ugydyvkup TABATHA 0.7, Beta-Globulins (TABATHA) 1.1, Gamma Globulins (TABATHA) 1.2, TABATHA M-Patricio , TABATHA Comments Comment, c-ANCA Antibody <1:20, Atypical p-ANCA <1:20, p-ANCA Antibody <1:20 01/18/22 06:37: Sodium 139, Potassium 4.4, Chloride 107, Carbon Dioxide 22.0, Anion Gap 10, BUN 36 H, Creatinine 3.43 H, Estim Creat Clear Calc 32.06, Est GFR (MDRD) Af Amer 27 L, Est GFR (MDRD) Non-Af 23 L, BUN/Creatinine Ratio 10.5, Glucose 76, Calcium 9.0 Microbiology: Microbiology 01/14/22 11:15 Urine, Clean Catch Urine Culture - Final Culture exhibits no growth. 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 Follow-up with your primary care doctor within a week. You will need repeat blood work to check on your kidney function. Discharge Orders/Prescriptions Prescriptions: New labetalol 200 mg Tablet 200 mg PO TID 30 Days Qty: 90 0RF amlodipine 5 mg Tablet 5 mg PO BID 30 Days Qty: 60 0RF furosemide 20 mg Tablet 60 mg PO DAILY 30 Days Qty: 90 0RF Continued levetiracetam [Keppra] 500 mg Tablet 500 mg PO QHS clonazepam [Klonopin] 1 mg Tablet 1 mg PO DAILY clonazepam [Klonopin] 1 mg Tablet 3 mg PO QHS prazosin 5 mg Capsule 5 mg PO QHS levetiracetam [Keppra] 250 mg Tablet 250 mg PO DAILY aripiprazole [Abilify] 15 mg Tablet 15 mg PO BID omeprazole 40 mg Capsule,Delayed Release(Dr/Ec) 40 mg PO DAILY sucralfate 1 gram tablet 1 g PO 1HR_ACHS spironolactone 25 mg Tablet 25 mg PO DAILY Qty: 30 0RF hydralazine 50 mg Tablet 50 mg PO TID Qty: 90 1RF Discontinued metoprolol tartrate 25 mg Tablet 25 mg PO BID Qty: 60 0RF Referrals / Follow Up: Rashawn Camarog MD [Med Staff - Active Staff] - Within 1 Month Snoi Sanchez MD [Med Staff - Consulting] - Within 1 Week Care Physician,No Primary [Primary Care Provider] - In 1 Week Disposition Disposition (needs filled in before D/C Order can be placed): Home, Self Care Charges/Coding Visit Charges Inpatient E&M: 58611 Disch Hosp
[2022-01-18 15:14] LABS: Complement CH50 > 60 U/mL (>41)
== END 2022-01-18 12:42 | disposition home or self-care (01) | DRG 291 ==
LOC: ED 04:07 → ICU 07:03 → PCU 01-16 11:36
PROVIDERS: Internal Medicine; Internal Medicine Nephrology; Admitting Provider Student in an Organized Health Care Education/Training Program; Emergency Provider Emergency Medicine; Visit Provider Internal Medicine
DX: I13.0 Hypertensive heart and chronic kidney disease with heart failure and stage 1 through stage 4 chronic kidney disease, or unspecified chronic kidney disease (principal); I50.31 Acute diastolic (congestive) heart failure; N17.9 Acute kidney failure, unspecified; I16.1 Hypertensive emergency; N18.32 Chronic kidney disease, stage 3b; G40.909 Epilepsy, unspecified, not intractable, without status epilepticus; F31.9 Bipolar disorder, unspecified; G35 Multiple sclerosis; K21.00 Gastro-esophageal reflux disease with esophagitis, without bleeding; E87.6 Hypokalemia; K58.9 Irritable bowel syndrome, unspecified; F17.290 Nicotine dependence, other tobacco product, uncomplicated; Z86.73 Personal history of transient ischemic attack (TIA), and cerebral infarction without residual deficits; Z87.11 Personal history of peptic ulcer disease; Z87.19 Personal history of other diseases of the digestive system; Z79.899 Other long term (current) drug therapy; N50.89 Other specified disorders of the male genital organs; R82.71 Bacteriuria
CPT/HCPCS: 36415; 71046; 77012; 80048; 80053; 81001; 82570; 82784; 82962; 83735; 83880; 84100; 84165; 84484; 84540; 85025; 85610; 86160; 86162; 86256; 86334; 87086; 87491; 87591; 88305; 88313; 88346; 88348; 88350; 93005; 99156; 99285; 99406; J7050; A4216; J1940

== ENCOUNTER 2022-03-31 22:32 | Inpatient (IN) | payer MEDICAID, SELFPAY ==
[2022-03-31 22:33] VITALS: BP 204/159; PULSE 123; RESP 30; TEMP 36.2; O2SAT 99; BMI 39.4
[2022-03-31 22:37] VITALS: BP 204/159; PULSE 125; RESP 27; O2SAT 99
[2022-03-31 22:39] VITALS: O2SAT 99
--- NOTE | 2022-03-31 22:59 | EKG12_ITS ---
Test Reason : CP Blood Pressure : / mmHG Vent. Rate : 121 BPM Atrial Rate : 121 BPM P-R Int : 130 ms QRS Dur : 088 ms QT Int : 350 ms P-R-T Axes : 047 030 -16 degrees QTc Int : 497 ms Sinus tachycardia Left atrial enlargement Possible Anterior infarct , age undetermined Abnormal ECG Confirmed by SHABBIR HAYS, SYL ([id number]), fan mail editor JARAD ESTRADA ([id number]) on 04/04/2022 11:55:15 AM Referred By: ZA Confirmed By:SYL SHEA MD
--- NOTE | 2022-03-31 22:59 | RAD_ITS ---
EXAM: XR CHEST, 1 VIEW CLINICAL INDICATION: dyspnea TECHNIQUE: Frontal view of the chest. This report was created using [employer] report generation technology. COMPARISON: 01/14/2022. FINDINGS: LUNGS AND PLEURAL SPACES: Patchy areas of opacification lower lungs bilaterally may be due to edema or pneumonia. No pneumothorax. No effusion. HEART: Stable mild cardiomegaly. MEDIASTINUM: Central airways and mediastinal contour are unremarkable. BONES/JOINTS: Unremarkable. SOFT TISSUES: Unremarkable. RAD/Chest 1 View (Portable) IMPRESSION: 1. Patchy areas of opacification lower lungs bilaterally may be due to edema or pneumonia. 2. Stable mild cardiomegaly. Electronically Signed: Neftali Almanza MD at 23:36 EST ,
[2022-03-31 23:10] VITALS: BP 198/157; PULSE 119
[2022-03-31] MEDS: Nitroglycerin SL (ED/IMG/CATH) 0.4 MG TABLET SL (23:10)
[2022-03-31 23:19] LABS: Absolute Neutrophil Count 7.1 X10^3/uL (2.0-7.7); Basophil# 0.08 X10^3/uL; Basophil% 0.8 % (0-1); Eosinophil# 0.13 X10^3/uL; Eosinophils% 1.4 % (0-5); Hematocrit 44.6 % (40-54); Hemoglobin 14.7 g/dL (13.0-16.5); Lymphocyte % 11.6 % (19-41); Mean Corpuscular Hgb 29.1 pg (27.0-32.0); Mean Corpuscular Volume 88.3 fL (80-94); Mean Platelet Vol. 10.7 fl (6.2-12.0); Monocyte# 1.07 X10^3/uL; Monocyte% 11.3 % (0-10); NRBC Flagged by Analyzer 0 % (0-5); Neutrophil # 7.06 X10^3/uL (2.7-7.7); Neutrophil % 74.5 % (47-70); Platelet Count 234 K/mm3 (150-450); RBC Distribution Width CV 18.8 % (11.6-14.6); RBC Distribution Width SD 58.7 fl (35.1-43.9); Red Blood Count 5.05 M/mm3 (4.6-6.2); White Blood Count 9.5 K/mm3 (4.4-11.0)
[2022-03-31 23:38] VITALS: BP 209/144; PULSE 114; RESP 25; O2SAT 100
[2022-03-31] MEDS: cloNIDine HCl 0.2 MG Tablet PO (23:38)
[2022-03-31] MEDS: Labetalol (Prefilled) 20 MG/4 ML IV (23:40)
--- NOTE | 2022-03-31 23:40 | EDS_ITS ---
HPI History of Present Illness Chief Complaint: Shortness of Breath Narrative Narrative: Patient is a 27-year-old male with past medical history of heart failure and ischemic stroke. He states that he has been off of his medications for 2 weeks. He reports that over the last 2 to 3 days has been having increased generalized weakness worse difficult to move around the house and he feels like his body is swelling. He states that today he was feeling short of breath with some chest discomfort and his friend called 911 secondary to this. EMS states when they arrived his pulse ox was in the low 80s and secondary to this I put him on a nonrebreather and brought him to the hospital for evaluation [facility] Medical History Bipolar 1 disorder Bleach ingestion Chronic kidney disease, stage 3b CVA (cerebral vascular accident) GERD (gastroesophageal reflux disease) GI bleed Hypertension Irritable bowel syndrome (IBS) Multiple sclerosis PUD (peptic ulcer disease) Seizure disorder Suicide gesture Tobacco abuse Home Medications aripiprazole 15 mg tablet (Abilify) 15 mg PO BID mood stabilizer 07/30/21 [History Last Taken 07/30/21] clonazepam 1 mg tablet (Klonopin) 1 mg PO DAILY mood stabilizer 07/30/21 [History Last Taken 07/29/21] clonazepam 1 mg tablet (Klonopin) 3 mg PO QHS mood stabilizer 07/30/21 [History Last Taken 07/29/21] levetiracetam 250 mg tablet (Keppra) 250 mg PO DAILY tremors 07/30/21 [History Last Taken 07/30/21] levetiracetam 500 mg tablet (Keppra) 500 mg PO QHS tremors 07/30/21 [History Last Taken 07/29/21] omeprazole 40 mg capsule,delayed release 40 mg PO DAILY gerd 07/30/21 [History Last Taken 07/30/21] prazosin 5 mg capsule 5 mg PO QHS blood pressure/ anxiety 07/30/21 [History Last Taken 07/29/21] sucralfate 1 gram tablet 1 g PO 1HR_ACHS Check with primary doctor 12/05/21 [History Last Taken Unknown] spironolactone 25 mg tablet 25 mg PO DAILY #30 tabs 12/07/21 [Rx Last Taken Unknown] hydralazine 50 mg tablet 50 mg PO TID #90 tabs 12/18/21 [Rx Last Taken Unknown] amlodipine 5 mg tablet 5 mg PO BID 30 days #60 tabs 01/18/22 [Rx Last Taken Unknown] furosemide 20 mg tablet 60 mg PO DAILY 30 days #90 tabs 01/18/22 [Rx Last Taken Unknown] labetalol 200 mg tablet 200 mg PO TID 30 days #90 tabs 01/18/22 [Rx Last Taken Unknown] Allergy/AdvReac Type Severity Reaction Status Date / Time No Known Allergies Allergy Verified 03/31/22 22:33 Family History Mother Diabetes Hypertension HLD (hyperlipidemia) Bipolar disorder Father Hypertension HLD (hyperlipidemia) Bipolar disorder Diabetes Surgical History H/O left knee surgery Social History household members: none Smoking Status: Current every day smoker tobacco type: e-cigarettes Smokeless tobacco user: other alcohol intake: current alcohol intake frequency: a few times a week substance use type: does not use ROS ROS ED Constitutional Constitutional ED: Denies chills or fever(s) ENT ENT ED: Denies sore throat Cardiovascular Cardiovascular: Reports chest pain Respiratory/Chest Respiratory/Chest: Reports dyspnea; Denies cough Gastrointestinal Gastrointestinal: Denies abdominal pain, diarrhea, nausea or vomiting Genitourinary Genitourinary ED: Denies dysuria Musculoskeletal Musculoskeletal: Reports myalgias and other Details: Positive edema Integumentary Denies rash Neurologic Neurologic: Reports weakness; Denies headache(s) Hematologic/Lymphatic Hematologic/Lymphatic: Denies easy bleeding or easy bruising EXAM Physical Exam Const Vital Signs: 03/31/22 22:33 03/31/22 22:37 03/31/22 22:39 Temperature 97.1 F L Temperature Source Temporal Pulse Rate 123 H 125 H Respiratory Rate 30 H 27 H Respiratory Effort Short of Breath Labored Respiratory Depth Normal Respiratory Pattern Tachypnea Blood Pressure 204/159 H 204/159 H Blood Pressure Mean 174 174 Pulse Ox 99 99 Oxygen Delivery Method Room Air Room Air Room Air Oxygen Flow Rate (L/min) 03/31/22 23:10 11/24/22 23:38 04/01/22 00:18 Temperature Temperature Source Pulse Rate 119 H 114 H 93 Respiratory Rate 25 H 28 H Respiratory Effort Respiratory Depth Respiratory Pattern Blood Pressure 198/157 H 209/144 H 166/118 H Blood Pressure Mean 165 134 Pulse Ox 100 86 Oxygen Delivery Method Room Air Room Air Oxygen Flow Rate (L/min) 04/01/22 00:22 Temperature Temperature Source Pulse Rate Respiratory Rate Respiratory Effort Respiratory Depth Respiratory Pattern Blood Pressure Blood Pressure Mean Pulse Ox 97 Oxygen Delivery Method Nasal Cannula Oxygen Flow Rate (L/min) 2 Positive well nourished and well developed General Appearance ED: well developed HEENT Reports moist mucous membranes HEENT Narrative: No tongue or lip swelling no oral lesions no airway edema or compromise Eyes PERRL and EOMs intact bilaterally Neck supple Neck Narrative: Positive JVD noted Resp Resp Narrative: Patient is tachypneic but without nasal flaring retractions or accessory muscle use. Breath sounds are diminished throughout with crackles noted in the bilateral lower lobes. Positive orthopnea noted Cardio regular rhythm Rate: tachycardic and other Other Details: Tachycardic rate with regular rhythm radial pulses are plus 2 out of 4 bilaterally are equal and symmetric GI non-tender and non-distended GI Narrative: No voluntary guarding or rigidity. No pulsatile mass. Fluid wave is noted Auscultation: normoactive bowel sounds Palpation: soft Narrative: Soft tissue swelling to the genitals noted Extremity Extremity Narrative: Patient has +3-4 pitting edema to both legs and arms the edema from the legs extends from the feet into the thighs and groin region. Negative Homans' sign bilaterally Neuro oriented x3 and CN's II-XII intact bilaterally Sensorium / Orientation: alert Psych Psych Narrative: Patient has a flat affect Skin no rashes or lesions noted MDM MDM MDM Narrative Medical decision making narrative: Patient presented to the ER satting in the high 90s on room air despite EMS reporting that initially put him on a nonrebreather because of a low pulse ox at home. His blood pressure was elevated consistent with history of hypertension and he was also tachycardic. The patient states he has been out of his medications for 2 weeks. Based on his past medical history the elevation to blood pressure and heart rate could simply be related to the lack of his medication. However I also have to consider possible pulmonary embolus as EMS reported he was hypoxic and has been tachycardic and has a history of ischemic stroke. Secondary to his basic blood work was obtained. The patient's kidney function is elevated with creatinine 3.99 which is above his baseline of about 3 from January of this year. The patient's troponin is elevated initially at 124 but does downtrend to 112. Chart review reveals that he runs typically around 80 but has also been as high as 118 so this is not a severe elevation for him. Based on his diffuse anasarca his chest x-ray is consistent with pulmonary edema. At this time because of the reported shortness of breath and orthopnea he will be given IV Lasix. With the elevated troponin as well as a significantly elevated D-dimer and the initial tachycardia there is concern that he also has a possible PE so heparin will be started while he waits for a VQ scan in the morning. At this time the patient's blood pressure has been reduced between 15 and 25% his heart rate is now below 100 and he is resting comfortably. He will be admitted to the hospital for continued diuresis with monitoring of the lab values and to rule out PE secondary to his elevated D-di adriana. Lab Data Attestation: I reviewed the patient's lab results. Labs: Laboratory Results - last 24 hr 03/31/22 03/31/22 03/31/22 22:45 22:45 22:45 WBC 9.5 RBC 5.05 Hgb 14.7 Hct 44.6 MCV 88.3 MCH 29.1 MCHC 33.0 RDW Std Deviation 58.7 H RDW Coeff of [place] 18.8 H Plt Count 234 MPV 10.7 Immature Gran % (Auto) 0.400 Neut % (Auto) 74.5 H Lymph % (Auto) 11.6 L [place] % (Auto) 11.3 H Eos % (Auto) 1.4 Baso % (Auto) 0.8 Absolute Neuts (auto) 7.1 Absolute Lymphs (auto) 1.10 Nucleated RBC % 0 PT 16.3 H INR 1.4 APTT 41.1 H D-Dimer Quant (PE/DVT) 6.83 H* Sodium 130 L Potassium 3.5 Chloride 92 L Carbon Dioxide 22.0 Anion Gap 16 H BUN 50 H Creatinine 3.99 H Estim Creat Clear Calc 27.32 Est GFR (MDRD) Af Amer 23 L Est GFR (MDRD) Non-Af 19 L BUN/Creatinine Ratio 12.5 Glucose 117 H Calcium 9.2 Magnesium 2.2 Troponin I High Sens 124 H* B-Natriuretic Peptide 03/31/22 04/01/22 22:45 00:40 WBC RBC Hgb Hct MCV MCH MCHC RDW Std Deviation RDW Coeff of [place] Plt Count MPV Immature Gran % (Auto) Neut % (Auto) Lymph % (Auto) [place]oca % (Auto) Eos % (Auto) Baso % (Auto) Absolute Neuts (auto) Absolute Lymphs (auto) Nucleated RBC % PT INR APTT D-Dimer Quant (PE/DVT) Sodium Potassium Chloride Carbon Dioxide Anion Gap BUN Creatinine Estim Creat Clear Calc Est GFR (MDRD) Af Amer Est GFR (MDRD) Non-Af BUN/Creatinine Ratio Glucose Calcium Magnesium Troponin I High Sens 112 H B-Natriuretic Peptide 4708.8 H Radiography Diagnostic Testing: Clinical Impression(s) from Imaging Studies Chest X-Ray 03/31/22 22:59 IMPRESSION: 1. Patchy areas of opacification lower lungs bilaterally may be due to edema or pneumonia. 2. Stable mild cardiomegaly. Electronically Signed: Neftali Almanza MD at 23:36 EST , Chest x-ray as interpreted by the emergency medicine physician reveals areas of opacification consistent with edema in the bilateral lower lung [place]. Discharge Plan Triage Chief Complaint: Shortness of Breath ED Provider: Rafy Acosta Dx/Rx/DC Orders Clinical Impression: Hypertensive emergency, Acute kidney injury superimposed on chronic kidney disease, Anasarca, History of ischemic stroke Primary Care Provider: Care Physician,No Primary Disposition Disposition: Acute Care Hospital [facility]
[2022-03-31 23:44] LABS: Anion Gap 16 (5-15); BUN 50 mg/dL (7-18); BUN/Creat Ratio 12.5 RATIO (10-20); Calcium,Total 9.2 mg/dL (8.5-10.1); Chloride 92 mmol/L (98-107); Creatinine, Serum 3.99 mg/dL (0.70-1.30); EST Glomerular Filtration Rate 19 mL/min (>60); Est Glom Filt Rate - Afr Amer 23 mL/min (>60); Estimated Creatinine Clearance 27.32 ml/min; Glucose 117 mg/dL (74-106); Magnesium 2.2 mg/dL (1.6-2.6); Potassium 3.5 mmol/L (3.5-5.1); Sodium Level 130 mmol/L (136-145); Troponin-I HS 124 pg/mL (3.0-78.0)
[2022-03-31 23:45] LABS: BNP,B-Type NATRIURETIC PEPTIDE 4708.8 pg/mL (0-100)
[2022-03-31 23:53] LABS: International Normalized Ratio 1.4; Prothrombin Time (Protime)PT. 16.3 SECONDS (11.7-14.9)
[2022-03-31 23:54] LABS: Partial Thromboplast Time 41.1 Seconds (24.1-36.2)
[2022-03-31] MEDS: Ondansetron 4 MG/2 ML Vial IV (23:54)
[2022-03-31] MEDS: Morphine 4 MG/ML Syringe IV (23:58)
[2022-04-01] VITALS (21 sets, daily range): BP systolic 116–178; BP diastolic 66–128; PULSE 81–94; RESP 16–28; TEMP 36.2–36.8; O2SAT 86–99; BMI 38.2
[2022-04-01 00:01] LABS: D-Dimer Quantitative (DVT/PE) 6.83 FEU/ug/m (0.27-0.49)
[2022-04-01] MEDS: Furosemide 100 MG/10 ML Vial 80 MG IV (01:07)
--- NOTE | 2022-04-01 01:12 | HP.PCM.HOS_ITS ---
HPI - General General Date of Admission: 04/01/22 Date of Service: 04/01/22 Chief Complaint: CHEST PAIN HPI Narrative EDU WILCOX, is a 27 M with a significant history of ischemic stroke; hypertension; anasarca; and hypertension who presents to the emergency department with squeezing left-sided chest pain that started about half hour before presentation. The pain was persistent. Intensity of the pain was 7 out of 10. The pain is nonradiating. He denies any aggravating factors to the pain. The pain improves with nitroglycerin that was given at the emergency department. He denies any associated symptoms of nausea, vomiting or diaphoresis. Also patient complains of swelling at the lower part of his body that has worsened in the past 3 days. He reported that because of his increased swelling he has had decreased mobility. Also he complains of generalized weakness. Further, on the day of presentation he developed shortness of breath. Reportedly per EMS patient oxygen saturation was in the 80s on arrival and req uired supplemental oxygenation by nonrebreather mask. At the emergency department patient was noted not to be hypoxic on room air. [facility] Medical History (Updated 04/01/22 @ 03:21 by Ami Caldwell) Bipolar 1 disorder Bleach ingestion Chronic kidney disease, stage 3b CVA (cerebral vascular accident) GERD (gastroesophageal reflux disease) GI bleed Hypertension Irritable bowel syndrome (IBS) Multiple sclerosis PUD (peptic ulcer disease) Seizure disorder Suicide gesture Tobacco abuse Home Medications aripiprazole 15 mg tablet (Abilify) 15 mg PO BID mood stabilizer 07/30/21 [History Last Taken 07/30/21] clonazepam 1 mg tablet (Klonopin) 1 mg PO DAILY mood stabilizer 07/30/21 [History Last Taken 07/29/21] clonazepam 1 mg tablet (Klonopin) 3 mg PO QHS mood stabilizer 07/30/21 [History Last Taken 07/29/21] levetiracetam 250 mg tablet (Keppra) 250 mg PO DAILY tremors 07/30/21 [History Last Taken 07/30/21] levetiracetam 500 mg tablet (Keppra) 500 mg PO QHS tremors 07/30/21 [History Last Taken 07/29/21] omeprazole 40 mg capsule,delayed release 40 mg PO DAILY gerd 07/30/21 [History Last Taken 07/30/21] prazosin 5 mg capsule 5 mg PO QHS blood pressure/ anxiety 07/30/21 [History Last Taken 07/29/21] sucralfate 1 gram tablet 1 g PO 1HR_ACHS Check with primary doctor/acid reflux 12/05/21 [History Last Taken Unknown] amlodipine 5 mg tablet 5 mg PO BID blood pressure 04/01/22 [History Last Taken Unknown] furosemide 20 mg tablet 60 mg PO DAILY blood pressure 04/01/22 [History Last Taken Unknown] hydralazine 50 mg tablet 50 mg PO TID blood pressure 04/01/22 [History Last Taken Unknown] labetalol 200 mg tablet 200 mg PO TID blood pressure 04/01/22 [History Last Taken Unknown] spironolactone 25 mg tablet 25 mg PO DAILY water pill 04/01/22 [History Last Taken Unknown] Allergy/AdvReac Type Severity Reaction Status Date / Time No Known Allergies Allergy Verified 03/31/22 22:33 Family History Mother Diabetes Hypertension HLD (hyperlipidemia) Bipolar disorder Father Hypertension HLD (hyperlipidemia) Bipolar disorder Diabetes Surgical History H/O left knee surgery Social History household members: none Smoking Status: Current every day smoker tobacco type: e-cigarettes Smokeless tobacco user: other alcohol intake: current alcohol intake frequency: a few times a week substance use type: does not use ROS ROS Narrative Pertinent positives and pertinent negatives as noted in HPI. All other systems were reviewed and are negative Vital Signs Vital Signs Vital Signs: 03/31/22 22:33 03/31/22 22:37 03/31/22 22:39 Temperature 97.1 F L Temperature Source Temporal Pulse Rate 123 H 125 H Respiratory Rate 30 H 27 H Respiratory Effort Short of Breath Labored Respiratory Depth Normal Respiratory Pattern Tachypnea Blood Pressure 204/159 H 204/159 H Blood Pressure Mean 174 174 Pulse Ox 99 99 Oxygen Delivery Method Room Air Room Air Room Air Oxygen Flow Rate (L/min) 03/31/22 23:10 03/31/22 23:38 04/01/22 00:18 Temperature Temperature Source Pulse Rate 119 H 114 H 93 Respiratory Rate 25 H 28 H Respiratory Effort Respiratory Depth Respiratory Pattern Blood Pressure 198/157 H 209/144 H 166/118 H Blood Pressure Mean 165 134 Pulse Ox 100 86 Oxygen Delivery Method Room Air Room Air Oxygen Flow Rate (L/min) 04/01/22 00:22 04/01/22 00:59 04/01/22 01:00 Temperature 97.1 F L Temperature Source Temporal Pulse Rate 92 93 Respiratory Rate 21 H 19 H Respiratory Effort Respiratory Depth Respiratory Pattern Blood Pressure 164/119 H 172/114 H Blood Pressure Mean 134 133 Pulse Ox 97 98 98 Oxygen Delivery Method Nasal Cannula Nasal Cannula Nasal Cannula Oxygen Flow Rate (L/min) 2 2 2 Weight Weight: 121 kg Body Mass Index (BMI) 39.4 Physical Exam Narrative Physical exam: General: Well-nourished, well-developed. Head: Normocephalic, atraumatic, no tenderness Eyes: Vision is grossly intact. EOMI ENT, no trauma, moist mucous membranes, no rhinorrhea Neck: Nontender, full range of motion CVS: Regular rate and rhythm. S1-S2 present. No murmur, gallop or rub. Respiratory : Decreased breath sounds, chest wall nontender, no wheezing Abdomen: Soft, nontender, nondistended, normal bowel sounds, no masses : Edematous scrotum and penis Back: Nontender, no CVA tenderness, no midline spinal tenderness, deformities, step-offs Extremities: Bilateral lower extremity pitting edema. No trauma Skin: Normal color, no trauma, abrasions Neuro: Alert, oriented, cranial nerves II through XII grossly intact. Psychiatry: Normal mood. Normal affect. Not depressed. Not anxious. Results Lab / Micro Data Result Diagrams: 03/31/22 22:45 03/31/22 22:45 Labs: Laboratory Results - last 24 hr 03/31/22 22:45: WBC 9.5, RBC 5.05, Hgb 14.7, Hct 44.6, MCV 88.3, MCH 29.1, MCHC 33.0, RDW Std Deviation 58.7 H, RDW Coeff of [place] 18.8 H, Plt Count 234, MPV 10.7, Immature Gran % (Auto) 0.400, Neut % (Auto) 74.5 H, Lymph % (Auto) 11.6 L, [place] % (Auto) 11.3 H, Eos % (Auto) 1.4, Baso % (Auto) 0.8, Absolute Neuts (auto) 7.1, Absolute Lymphs (auto) 1.10, Nucleated RBC % 0 03/31/22 22:45: PT 16.3 H, INR 1.4, APTT 41.1 H, D-Dimer Quant (PE/DVT) 6.83 H* 03/31/22 22:45: Sodium 130 L, Potassium 3.5, Chloride 92 L, Carbon Dioxide 22.0, Anion Gap 16 H, BUN 50 H, Creatinine 3.99 H, Estim Creat Clear Calc 27.32, Est GFR (MDRD) Af Amer 23 L, Est GFR (MDRD) Non-Af 19 L, BUN/Creatinine Ratio 12.5, Glucose 117 H, Calcium 9.2, Magnesium 2.2, Troponin I High Sens 124 H* 03/31/22 22:45: B-Natriuretic Peptide 4708.8 H Radiology Impression Chest X-Ray 03/31/22 22:59 IMPRESSION: 1. Patchy areas of opacification lower lungs bilaterally may be due to edema or pneumonia. 2. Stable mild cardiomegaly. Electronically Signed: Neftali Almanza MD at 23:36 EST , Assessment & Plan Assessment/Plan (1) Anasarca: (2) Hypertensive emergency: (3) Elevated d-dimer: (4) Heart failure: PLAN: Plan Acute on chronic heart failure with preserved ejection fraction Weight on admission to the floor; and then daily Strict I&O's CXR was visualized and independently interpreted. I agree with radiologist interpretation of patchy areas of opacification of lower lungs and stable mild cardiomegaly. EKG showed sinus tachycardia. BNP of 4708.8 Transthoracic echocardiogram on 12/06/2021 showed estimated EF of 60%. Fletcher wrap to bilateral lower extremities Fluid restriction of 1500 mls daily 2 g cardiac diet JULIANNA on CKD Stage 3b/anasarca Left kidney biopsy in January 2022 showed hypertensive global glomerulosclerosis; marked arteriolar mural thickening with myxoid change; moderate to marked large vessel hypertensive changes; renal cortical/parenchymal interstitial fibrosis. Creatinine on presentation was 3.99. Hospital record shows that highest creatinine in January 2022 was 3.48. Laxis IV push ordered. Scrotal elevation Trend BMP. Hypertensive Emergency Received labetalol IV and clonidine at the ED. Resume home medications including hydralazine; labetalol and spironolactone. Hold amlodipine for edema. Trend blood pressures. Elevated D-dimer. D-dimer of 6.83 Heparin drip started at the ED and continued. Unable to get CTA secondary to JULIANNA on CKD v/q scan ordered. Elevated troponin Initiate high sensitive troponin was 124. Trending down to 112. Review of record shows history of elevated troponin at about the same range. Unclear whether from elevated heart rate; hypertensive emergency or NSTEMI. Continue to trend. Heparin drip started at the ED and continued. DVT Prophylaxis: Heparin drip as above. Charges/Coding Visit Charges Inpatient E&M: 31919 Init Hosp L3
[2022-04-01 01:13] LABS: Troponin-I HS 112 pg/mL (3.0-78.0)
[2022-04-01] MEDS: Heparin Injection (Vial) 5,000 UNIT/ML VIAL 4000 UNIT IV (01:24)
[2022-04-01] MEDS: HEPARIN/D5w 25,000 UNITS 25,000 UNITS/250 ML IV.SOLN. 10 UNITS CONT INF (01:27)
[2022-04-01] MEDS: Aspirin 325 MG Tablet PO (01:30)
--- NOTE | 2022-04-01 03:01 | EKG12_ITS ---
Test Reason : Blood Pressure : / mmHG Vent. Rate : 091 BPM Atrial Rate : 091 BPM P-R Int : 130 ms QRS Dur : 090 ms QT Int : 446 ms P-R-T Axes : 054 052 256 degrees QTc Int : 548 ms Normal sinus rhythm Possible Left atrial enlargement Possible Anterior infarct , age undetermined T wave abnormality, consider inferolateral ischemia Abnormal ECG When compared with ECG of 14-JAN-2022 04:47, No significant change was found Confirmed by SHABBIR HAYS, SYL ([id number]), electronic news gathering editor JARAD ESTRADA ([id number]) on 04/04/2022 11:27:18 AM Referred By: Confirmed By:SYL SHEA MD
--- NOTE | 2022-04-01 03:01 | NM_ITS ---
CLINICAL: 27-year-old male with history of elevation of the d-dimer and shortness of breath. VENTILATION-PERFUSION LUNG SCINTIGRAPHY COMPARISON: Plain film chest radiograph 03/31/2022 FINDINGS: The patient was administered 30.0 mCi 99m Tc DTPA aerosol. The aerosol ventilation study demonstrates heterogeneous ventilation identified throughout the bilateral lung [place] without corresponding radiographic changes defined on plain film chest x-ray dated 03/31/2022. Central clumping of the aerosol is noted in the bilateral hemithorax. Following the intravenous administration of 5.4 mCi of 99m Tc MAA the pulmonary perfusion study reveals uniform perfusion throughout both lung [place]. There are no segmental or subsegmental perfusion defects identified. There are no ventilation-perfusion mismatches observed. NM/Lung Scan Vent/Perf IMPRESSION: 1. NORMAL 99m Tc MAA pulmonary perfusion imaging examination, according to PIOPED II interpretive criteria. (Sotsman et al, Radiology 246: 941, 2008 Solexii et al, J Nucl Med 49: 1741, 2008). 2. Central clumping of the aerosol may be secondary to obstructive airway mechanics and or clinical tachypnea. Electronically Signed: Michael Portillo, at 12:24 EST ,
[2022-04-01 05:03] LABS: Absolute Lymphocyte Count 1.06 X10^3/uL (0.83-4.51); Absolute Neutrophil Count 6.4 X10^3/uL (2.0-7.7); Basophil# 0.08 X10^3/uL; Basophil% 0.9 % (0-1); Eosinophil# 0.16 X10^3/uL; Eosinophils% 1.8 % (0-5); Hematocrit 40.2 % (40-54); Hemoglobin 12.9 g/dL (13.0-16.5); Lymphocyte # 1.06 X10^3/ul (0.83-4.51); Lymphocyte % 11.8 % (19-41); Mean Corp Hgb Conc 32.1 g/dL (32-36); Mean Corpuscular Hgb 28.9 pg (27.0-32.0); Mean Corpuscular Volume 89.9 fL (80-94); Mean Platelet Vol. 10.9 fl (6.2-12.0); Monocyte% 14.4 % (0-10); NRBC Flagged by Analyzer 0 % (0-5); Neutrophil # 6.35 X10^3/uL (2.7-7.7); Neutrophil % 70.5 % (47-70); Platelet Count 201 K/mm3 (150-450); RBC Distribution Width CV 18.5 % (11.6-14.6); RBC Distribution Width SD 59.9 fl (35.1-43.9); Red Blood Count 4.47 M/mm3 (4.6-6.2)
[2022-04-01 05:28] LABS: Troponin-I HS 104 pg/mL (3.0-78.0)
[2022-04-01] MEDS: Acetaminophen 325 MG Tablet 650 MG PO (05:29)
[2022-04-01 05:40] LABS: Anion Gap 14 (5-15); BUN 49 mg/dL (7-18); BUN/Creat Ratio 12.7 RATIO (10-20); Calcium,Total 8.2 mg/dL (8.5-10.1); Chloride 94 mmol/L (98-107); Creatinine, Serum 3.87 mg/dL (0.70-1.30); EST Glomerular Filtration Rate 20 mL/min (>60); Est Glom Filt Rate - Afr Amer 24 mL/min (>60); Estimated Creatinine Clearance 28.16 ml/min; Glucose 99 mg/dL (74-106); Potassium 3.2 mmol/L (3.5-5.1); Sodium Level 130 mmol/L (136-145)
[2022-04-01] MEDS: hydrALAZINE 50 MG Tablet PO ×3 (05:53→21:49)
[2022-04-01] MEDS: Sucralfate 1 GM Tablet PO ×4 (05:54→21:50)
[2022-04-01] MEDS: Aspirin E.C. 81 MG Tablet PO (08:40)
[2022-04-01] MEDS: Pantoprazole Sodium 40 MG Tablet PO (08:40)
[2022-04-01] MEDS: Potassium Chloride Oral Tablet 20 MEQ 40 MEQ PO (08:40)
[2022-04-01] MEDS: Labetalol 200 MG Tablet PO ×2 (08:49→12:12)
[2022-04-01 09:09] LABS: Partial Thromboplast Time 32.1 Seconds (24.1-36.2)
--- NOTE | 2022-04-01 09:46 | VDLE_ITS ---
Reason For Study: D-Dimer RIGHT LEFT GSV is normal. GSV is normal. CFV is compressible, spontaneous, competent CFV is compressible, spontaneous, competent, and demonstrates pulsatile venous flow. and demonstrates pulsatile venous flow. FV is compressible, spontaneous, competent FV is compressible, spontaneous, competent and demonstrates pulsatile venous flow. and demonstrates pulsatile venous flow. POP V is compressible, spontaneous, competent POP V is compressible, spontaneous, competent and demonstrates pulsatile venous flow. and demonstrates pulsatile venous flow. T/P Trunk is compressible. T/P Trunk is compressible. PTV is compressible. PTV is compressible. RT PerV is compressible. LT PerV is compressible. Procedure This is a venous duplex using B-mode, color flow and spectral Doppler. Exam performed in department. The exam was diagnostic. A preliminary report was called and/or faxed to PCU Charge. VL/Venous Duplex US - Luis Extrem Interpretation Summary No evidence for acute deep venous thrombosis bilateral lower extremities with p atent and compressible bilateral great saphenous veins. Pulsatile venous flow was noted b ilaterally suggestive of proximal venous hypertension or obstruction. Clinical correlation would be a ppropriate. Ordering Physician: Vibha Goldsmith Performed By: Chris Meyer RVT
[2022-04-01] MEDS: levETIRAcetam 250 MG Tablet PO (09:57)
[2022-04-01] MEDS: ARIPiprazole 5 MG Tablet 15 MG PO ×2 (09:57→21:49)
[2022-04-01] MEDS: Furosemide 40 MG/4 ML Vial IV ×2 (09:58→18:14)
[2022-04-01] MEDS: FLU VACC QS2022-23(6MOS UP)/PF 60 MCG/0.5 ML SYRINGE IM (10:06)
[2022-04-01] MEDS: Spironolactone 25 MG Tablet PO (10:07)
[2022-04-01] MEDS: Heparin Injection (Vial) 5,000 UNIT/ML VIAL 1000 UNIT IV (10:12)
--- NOTE | 2022-04-01 10:51 | PN.HOSP_ITS ---
Subjective Subjective Patient seen and examined. He denied any shortness of breath, cough, chest pain, palpitations, dizziness, nausea, or vomiting. REview of systems is otherwise negative. Objective Data Objective Data Vital Signs: Vital Signs Temp Pulse Resp BP Pulse Ox O2 Del Method O2 Flow Rate 97.6 F L 91 16 141/103 H 99 Nasal Cannula 2 04/01/22 08:57 04/01/22 08:57 04/01/22 08:57 04/01/22 08:57 04/01/22 08:57 04/01/22 09:02 04/01/22 09:02 Oxygen Flow Rate (L/min) 2 Oxygen Delivery Method Nasal Cannula Weight: 258 lb 9.636 oz Body Mass Index (BMI) 38.2 Intake & Output: Intake and Output for Last 24 Hours 03/30/22 03/31/22 04/01/22 23:59 23:59 23:59 Intake Total 329.03 / 329.03 Output Total 650 / 650 Balance -320.97 / -320.97 Lab / Micro Data Result Diagrams: 04/01/22 04:49 04/01/22 04:49 Labs: Laboratory Results - last 24 hr 03/31/22 22:45: WBC 9.5, RBC 5.05, Hgb 14.7, Hct 44.6, MCV 88.3, MCH 29.1, MCHC 33.0, RDW Std Deviation 58.7 H, RDW Coeff of [place] 18.8 H, Plt Count 234, MPV 10.7, Immature Gran % (Auto) 0.400, Neut % (Auto) 74.5 H, Lymph % (Auto) 11.6 L, [place] % (Auto) 11.3 H, Eos % (Auto) 1.4, Baso % (Auto) 0.8, Absolute Neuts (auto) 7.1, Absolute Lymphs (auto) 1.10, Nucleated RBC % 0 03/31/22 22:45: PT 16.3 H, INR 1.4, APTT 41.1 H, D-Dimer Quant (PE/DVT) 6.83 H* 03/31/22 22:45: Sodium 130 L, Potassium 3.5, Chloride 92 L, Carbon Dioxide 22.0, Anion Gap 16 H, BUN 50 H, Creatinine 3.99 H, Estim Creat Clear Calc 27.32, Est GFR (MDRD) Af Amer 23 L, Est GFR (MDRD) Non-Af 19 L, BUN/Creatinine Ratio 12.5, Glucose 117 H, Calcium 9.2, Magnesium 2.2, Troponin I High Sens 124 H* 03/31/22 22:45: B-Natriuretic Peptide 4708.8 H 04/01/22 00:40: Troponin I High Sens 112 H 04/01/22 04:49: WBC 9.0, RBC 4.47 L, Hgb 12.9 L, Hct 40.2, MCV 89.9, MCH 28.9, MCHC 32.1, RDW Std Deviation 59.9 H, RDW Coeff of [place] 18.5 H, Plt Count 201, MPV 10.9, Immature Gran % (Auto) 0.600, Neut % (Auto) 70.5 H, Lymph % (Auto) 11.8 L, [place] % (Auto) 14.4 H, Eos % (Auto) 1.8, Baso % (Auto) 0.9, Absolute Neuts (auto) 6.4, Absolute Lymphs (auto) 1.06, Nucleated RBC % 0 04/01/22 04:49: Sodium 130 L, Potassium 3.2 L, Chloride 94 L, Carbon Dioxide 22.0, Anion Gap 14, BUN 49 H, Creatinine 3.87 H, Estim Creat Clear Calc 28.16, Est GFR (MDRD) Af Amer 24 L, Est GFR (MDRD) Non-Af 20 L, BUN/Creatinine Ratio 12.7, Glucose 99, Calcium 8.2 L 04/01/22 04:49: Troponin I High Sens 104 H 04/01/22 07:11: APTT 32.1 Radiography Diagnostic Testing: Radiology Impression Chest X-Ray 03/31/22 22:59 IMPRESSION: 1. Patchy areas of opacification lower lungs bilaterally may be due to edema or pneumonia. 2. Stable mild cardiomegaly. Electronically Signed: Neftali Almanza MD at 23:36 EST , Physical Exam Const alert, oriented x3 and no apparent distress HEENT head/scalp atraumatic, moist oral mucous membranes and oropharynx normal Head and Scalp: normocephalic Mouth: oral and palatal mucosa normal and dry mucous membranes Eyes PERRL, EOMs intact bilaterally and conjunctivae normal Neck no lymphadenopathy and supple Resp Resp Narrative: mildly diminished breath sounds bibasally, no wheezes or crackles. On 2L of oxygen by nasal canula. Cardio regular rate, regular rhythm, S1 normal heart sound, S2 normal heart sound and no murmurs GI normal to inspection, nondistended, normoactive bowel sounds, soft to palpation, non-tender and non-distended Extremity normal to inspection and full ROM Extremity Narrative: bilateral LE edema with mild calf tenderness. Neuro oriented x3, CN's II-XII intact bilaterally, moves all extremities and no focal motor deficits Sensorium / Orientation: awake and alert Motor Exam: strength 5/5 throughout Psych affect normal Assessment & Plan Assessment/Plan (1) Hypertensive emergency: (2) Acute kidney injury superimposed on chronic kidney disease: (3) Heart failure: PLAN: Plan #Acute on chronic HFpEF * on IV lasix 40mg bid * BNP is elevated at 4708. * has known EF of 60%. * fluid restriction to 1500cc daily * bilateral NO wraps * #JULIANNA on CKD 3B * kidney biopsy in January 2022 showed hypertensive global glomerulosclerosis with marked arteriolar mural thickening with myxoid exchange and moderate to marked large vessel hypertensive changes. * Cr on admission was 3.99; has trended downwards. * #Hypertensive emergency * resolved * on hydralazine, labetalol and spironolactone. amlodipine held due to lower extremity edema * #Elevated D dimer * D dimer was elevated at 6.83 * couldn't have CTA due to kidney function * #Elevated troponin * initial troponin was elevated at 112, but trended downwards * has previously had similarly elevated troponins. HEart failure as well as probable PE may also have contributed in addition to hypertensive emergency * will monitor * hold off on cardiology consult for now * #Hypokalemia: K is 3.2. Will replace and trend #Hyponatremia * sodium is 130; was also 130 yesterday * may be due to JULIANNA on CKD * will trend sodium. If it owrsens, do further workup. * DVT prophylaxis: on heparin drip * Charges/Coding Visit Charges Inpatient E&M: 53513 Subs Hosp L3
--- NOTE | 2022-04-01 12:15 | CASEMGMT ---
MARGARITA DURAN Face to Face with patient for initial transition planning/care coordination assessment. MARGARITA DURAN introduced self and role at [facility]. Patient sitting in chair, alert and oriented. Patient willing to participate in assessment and is able to answer all questions appropriately. Care providers, pharmacy, and demographics verified. Patient wishes to discharge home, denies need for home health at this time. Patient states he has no further needs or concerns at this time. CM to follow for discharge planning needs that may arise. PCP: None Specialists: None Preferred Pharmacy: [facility] at discharge. Insurance: [employer] Prescription Benefit: none Living Will/HPOA: none LNOK: friend Living Arrangements: Patient lives alone in a second floor apartment. Patient states she is independent and is able to ambulate stairs. Transportation: self, friend DME/HHC: Patient denies DME. No previous HHC MARGARITA DURAN discussed self-pay status with patient. Patient states that he is currently on leave from [employer] and missed open enrollment period through his employer. MARGARITA DURAN inquired if patient has filed and medicaid application since being off work, patient states no. MARGARITA DURAN updated SW to discuss self-pay and provide resources for patient. Disposition Plan: Patient to discharge home with family support and follow-up plans in place. Jaylyn DARLING, RN, CM
[2022-04-01] MEDS: 0.9% Saline Lock 10 ML Syringe IV ×3 (15:39→18:14)
[2022-04-01 17:19] LABS: Partial Thromboplast Time 47.8 Seconds (24.1-36.2)
[2022-04-01] MEDS: Doxazosin 4 MG Tablet PO (21:49)
[2022-04-01] MEDS: levETIRAcetam 500 MG Tablet PO (21:51)
[2022-04-02] VITALS (16 sets, daily range): BP systolic 103–137; BP diastolic 60–100; PULSE 83–92; RESP 16–18; TEMP 36.6–37.2; O2SAT 96–100
[2022-04-02] MEDS: Acetaminophen 325 MG Tablet 650 MG PO ×2 (02:40→09:59)
[2022-04-02] MEDS: Sucralfate 1 GM Tablet PO ×4 (06:12→21:40)
[2022-04-02] MEDS: hydrALAZINE 50 MG Tablet PO ×3 (06:12→21:40)
[2022-04-02] MEDS: Labetalol 200 MG Tablet PO ×3 (08:18→18:00)
[2022-04-02] MEDS: Aspirin E.C. 81 MG Tablet PO (08:18)
[2022-04-02 08:23] LABS: Absolute Lymphocyte Count 0.56 X10^3/uL (0.83-4.51); Absolute Neutrophil Count 4.5 X10^3/uL (2.0-7.7); Basophil# 0.05 X10^3/uL; Basophil% 0.8 % (0-1); Eosinophil# 0.14 X10^3/uL; Eosinophils% 2.2 % (0-5); Hemoglobin 12.7 g/dL (13.0-16.5); Lymphocyte # 0.56 X10^3/ul (0.83-4.51); Lymphocyte % 8.9 % (19-41); Mean Corp Hgb Conc 31.8 g/dL (32-36); Mean Corpuscular Hgb 29.1 pg (27.0-32.0); Mean Corpuscular Volume 91.5 fL (80-94); Mean Platelet Vol. 11.1 fl (6.2-12.0); Monocyte# 1.08 X10^3/uL; Monocyte% 17.1 % (0-10); NRBC Flagged by Analyzer 0 % (0-5); Neutrophil # 4.46 X10^3/uL (2.7-7.7); Neutrophil % 70.7 % (47-70); POSITIVE DIFFERENTIAL YES; Platelet Count 178 K/mm3 (150-450); RBC Distribution Width CV 18.7 % (11.6-14.6); Red Blood Count 4.37 M/mm3 (4.6-6.2); White Blood Count 6.3 K/mm3 (4.4-11.0)
[2022-04-02 08:37] LABS: Differential Indicated SCAN CRITERIA MET
[2022-04-02 08:43] LABS: Anion Gap 10 (5-15); BUN 54 mg/dL (7-18); BUN/Creat Ratio 13.8 RATIO (10-20); Calcium,Total 8.3 mg/dL (8.5-10.1); Chloride 97 mmol/L (98-107); Creatinine, Serum 3.92 mg/dL (0.70-1.30); EST Glomerular Filtration Rate 19 mL/min (>60); Est Glom Filt Rate - Afr Amer 24 mL/min (>60); Estimated Creatinine Clearance 27.81 ml/min; Glucose 106 mg/dL (74-106); Sodium Level 131 mmol/L (136-145)
[2022-04-02 09:04] LABS: Differential Comment SCANNED
[2022-04-02] MEDS: Spironolactone 25 MG Tablet PO (09:58)
[2022-04-02] MEDS: Furosemide 40 MG/4 ML Vial IV ×2 (09:59→18:01)
[2022-04-02] MEDS: ARIPiprazole 5 MG Tablet 15 MG PO ×2 (09:59→21:40)
[2022-04-02] MEDS: Pantoprazole Sodium 40 MG Tablet PO (09:59)
[2022-04-02] MEDS: 0.9% Saline Lock 10 ML Syringe IV (10:01)
[2022-04-02] MEDS: levETIRAcetam 250 MG Tablet PO (10:02)
--- NOTE | 2022-04-02 11:55 | PN.HOSP_ITS ---
Subjective Subjective Patient seen and examined. He complains of feeling swollen. HE says his scrotum is markedly swollen. He denies any shortness of breath, cough, chest pain, palpitations, dizziness, nausea, vomiting or diarrhea. Review of systems is otherwise negative. Objective Data Objective Data Vital Signs: Vital Signs Temp Pulse Resp BP Pulse Ox O2 Del Method O2 Flow Rate 98.9 F 86 17 103/60 98 Room Air 2 04/02/22 09:56 04/02/22 09:56 04/02/22 09:56 04/02/22 09:56 04/02/22 09:56 04/02/22 09:56 04/01/22 09:02 Oxygen Flow Rate (L/min) 2 Oxygen Delivery Method Room Air Weight: 258 lb 1.6 oz Body Mass Index (BMI) 38.2 Intake & Output: Intake and Output for Last 24 Hours 03/31/22 04/01/22 04/02/22 23:59 23:59 23:59 Intake Total 1269.83 / 1269.83 Output Total 650 / 650 Balance 619.83 / 619.83 Lab / Micro Data Result Diagrams: 04/02/22 08:17 04/02/22 08:17 Labs: Laboratory Results - last 24 hr 04/01/22 16:22: APTT 47.8 H 04/02/22 08:17: WBC 6.3, RBC 4.37 L, Hgb 12.7 L, Hct 40.0, MCV 91.5, MCH 29.1, MCHC 31.8 L, RDW Std Deviation 62.0 H, RDW Coeff of [place] 18.7 H, Plt Count 178, MPV 11.1, Immature Gran % (Auto) 0.300, Neut % (Auto) 70.7 H, Lymph % (Auto) 8.9 L, [place] % (Auto) 17.1 H, Eos % (Auto) 2.2, Baso % (Auto) 0.8, Absolute Neuts (auto) 4.5, Absolute Lymphs (auto) 0.56 L, Nucleated RBC % 0, Differential Comment SCANNED 04/02/22 08:17: Sodium 131 L, Potassium 3.0 L, Chloride 97 L, Carbon Dioxide 24.0, Anion Gap 10, BUN 54 H, Creatinine 3.92 H, Estim Creat Clear Calc 27.81, Est GFR (MDRD) Af Amer 24 L, Est GFR (MDRD) Non-Af 19 L, BUN/Creatinine Ratio 13.8, Glucose 106, Calcium 8.3 L Radiography Diagnostic Testing: Radiology Impression Lung Scan-VQ NM 04/01/22 03:01 IMPRESSION: 1. NORMAL 99m Tc MAA pulmonary perfusion imaging examination, according to PIOPED II interpretive criteria. (Solexii et al, Radiology 246: 941, 2008 Solexii et al, J Nucl Med 49: 1741, 2008). 2. Central clumping of the aerosol may be secondary to obstructive airway mechanics and or clinical tachypnea. Electronically Signed: Michael Bandar, at 12:24 EST , Venous Doppler Study 04/01/22 09:46 Interpretation Summary No evidence for acute deep venous thrombosis bilateral lower extremities with patent and compressible bilateral great saphenous veins. Pulsatile venous flow was noted bilaterally suggestive of proximal venous hypertension or obstruction. Clinical correlation would be appropriate. Ordering Physician: Vibha Goldsmith Performed By: Chris Meyer RVT Physical Exam Const alert, oriented x3 and no apparent distress HEENT head/scalp atraumatic, moist oral mucous membranes and oropharynx normal Head and Scalp: normocephalic Mouth: oral and palatal mucosa normal Eyes PERRL, EOMs intact bilaterally and conjunctivae normal Neck no lymphadenopathy and supple Resp Resp Narrative: mildly diminished breath sounds bibasally, no wheezes or crackles. On room air. Cardio regular rate, regular rhythm, S1 normal heart sound, S2 normal heart sound and no murmurs GI normal to inspection, nondistended, normoactive bowel sounds, soft to palpation, non-tender and non-distended GI Narrative: very edematous scrotum Extremity normal to inspection and full ROM Extremity Narrative: bilateral LE edema with mild calf tenderness. Neuro oriented x3, CN's II-XII intact bilaterally, moves all extremities and no focal motor deficits Sensorium / Orientation: awake and alert Motor Exam: strength 5/5 throughout Psych affect normal Assessment & Plan Assessment/Plan (1) Hypertensive emergency: (2) Acute kidney injury superimposed on chronic kidney disease: (3) Heart failure: PLAN: Plan #Acute on chronic HFpEF * on IV lasix 40mg bid * still complains of edema, with edematous scrotum and lower extremities * has known EF of 60%. * fluid restriction to 1500cc daily * bilateral NO wraps * #JULIANNA on CKD 3B * kidney biopsy in January 2022 showed hypertensive global glomerulosclerosis with marked arteriolar mural thickening with myxoid exchange and moderate to marked large vessel hypertensive changes. * Cr on admission was 3.99;is 3.92 today. Baseline Cr is ~ 3.11. * #Hypertensive emergency * resolved * on hydralazine, labetalol and spironolactone. amlodipine held due to lower extremity edema * #Elevated D dimer * D dimer was elevated at 6.83 * VQ scan showed low probability for PE * DUplex of lower extremities showed no evidence of DVT * #Elevated troponin * initial troponin was elevated at 112, but trended downwards * has previously had similarly elevated troponins. HEart failure as well as probable PE may also have contributed in addition to hypertensive emergency * will monitor * hold off on cardiology consult for now * #Hypokalemia: K is 3.0. Will replace and trend. Check magnesium also #Hyponatremia * sodium is 131 today * may be due to JULIANNA on CKD * will trend sodium. If it owrsens, do further workup. * DVT prophylaxis: lovenox, renally dosed * Charges/Coding Visit Charges Inpatient E&M: 89864 Subs Hosp L2
[2022-04-02] MEDS: Potassium Chloride Oral Tablet 20 MEQ 60 MEQ PO (12:32)
--- NOTE | 2022-04-02 13:24 | CASEMGMT ---
SW Note SW went to patient's room to provide self pay resources including information on applying for medicaid and [facility]. SW also provided list of PCP's for patient. Patient was asleep so social work lecturer left information at bedside. SW remains available if additional needs arise. Plan: Resources Provided Chantelle TRINIDAD
--- NOTE | 2022-04-02 21:31 | CM.ED ---
ARNOLDO and ARNOLDO Leiva met with patient. Provided him with financial resources packet including information on medicaid application,[facility] and [facility] financial resources as well as pamphlet on [facility] Healthcare Providers. No further issues or needs voiced. Chantelle TRINIDAD
[2022-04-02] MEDS: Doxazosin 4 MG Tablet PO (21:40)
[2022-04-02] MEDS: levETIRAcetam 500 MG Tablet PO (21:40)
[2022-04-03] VITALS (12 sets, daily range): BP systolic 119–138; BP diastolic 84–101; PULSE 85–91; RESP 16–18; TEMP 36.2–36.9; O2SAT 95–98
[2022-04-03 04:47] LABS: Magnesium 1.7 mg/dL (1.6-2.6)
[2022-04-03] MEDS: hydrALAZINE 50 MG Tablet PO ×3 (05:47→20:43)
[2022-04-03] MEDS: Sucralfate 1 GM Tablet PO ×4 (05:47→20:42)
[2022-04-03] MEDS: 0.9% Saline Lock 10 ML Syringe IV ×2 (05:48→10:26)
[2022-04-03 08:21] LABS: Anion Gap 11 (5-15); BUN 58 mg/dL (7-18); BUN/Creat Ratio 14.4 RATIO (10-20); Calcium,Total 7.5 mg/dL (8.5-10.1); Chloride 97 mmol/L (98-107); Creatinine, Serum 4.02 mg/dL (0.70-1.30); EST Glomerular Filtration Rate 19 mL/min (>60); Est Glom Filt Rate - Afr Amer 23 mL/min (>60); Estimated Creatinine Clearance 27.11 ml/min; Glucose 103 mg/dL (74-106); Potassium 3.2 mmol/L (3.5-5.1); Sodium Level 132 mmol/L (136-145)
[2022-04-03 08:41] LABS: Absolute Lymphocyte Count 0.67 X10^3/uL (0.83-4.51); Absolute Neutrophil Count 5.6 X10^3/uL (2.0-7.7); Basophil# 0.06 X10^3/uL; Basophil% 0.8 % (0-1); Eosinophil# 0.16 X10^3/uL; Eosinophils% 2.1 % (0-5); Hematocrit 39.5 % (40-54); Hemoglobin 12.2 g/dL (13.0-16.5); Lymphocyte # 0.67 X10^3/ul (0.83-4.51); Lymphocyte % 8.6 % (19-41); Mean Corp Hgb Conc 30.9 g/dL (32-36); Mean Corpuscular Hgb 28.6 pg (27.0-32.0); Mean Corpuscular Volume 92.7 fL (80-94); Mean Platelet Vol. 12.1 fl (6.2-12.0); Monocyte# 1.22 X10^3/uL; Monocyte% 15.7 % (0-10); NRBC Flagged by Analyzer 0 % (0-5); Neutrophil # 5.64 X10^3/uL (2.7-7.7); Neutrophil % 72.5 % (47-70); Platelet Count 191 K/mm3 (150-450); RBC Distribution Width CV 19.2 % (11.6-14.6); Red Blood Count 4.26 M/mm3 (4.6-6.2); White Blood Count 7.8 K/mm3 (4.4-11.0)
[2022-04-03] MEDS: Labetalol 200 MG Tablet PO ×3 (09:00→17:59)
[2022-04-03] MEDS: Aspirin E.C. 81 MG Tablet PO (09:00)
[2022-04-03] MEDS: Pantoprazole Sodium 40 MG Tablet PO (10:23)
[2022-04-03] MEDS: ARIPiprazole 5 MG Tablet 15 MG PO ×2 (10:23→20:43)
[2022-04-03] MEDS: Spironolactone 25 MG Tablet PO (10:23)
[2022-04-03] MEDS: Furosemide 40 MG/4 ML Vial IV (10:24)
[2022-04-03] MEDS: levETIRAcetam 250 MG Tablet PO (10:24)
--- NOTE | 2022-04-03 14:21 | PN.HOSP_ITS ---
Subjective Subjective Patient seen and examined. He says the vision in his right eye has improved today. He does not have any shortness of breath but does complain of worsening debility and states he feels weaker than usual. Review systems otherwise negative. Objective Data Objective Data Vital Signs: Vital Signs Temp Pulse Resp BP Pulse Ox O2 Del Method O2 Flow Rate 97.7 F L 88 18 119/84 H 98 Room Air 2 04/03/22 10:15 04/03/22 12:42 04/03/22 10:15 04/03/22 12:42 04/03/22 10:15 04/03/22 10:15 04/01/22 09:02 Oxygen Flow Rate (L/min) 2 Oxygen Delivery Method Room Air Weight: 258 lb 7.519 oz Body Mass Index (BMI) 38.2 Intake & Output: Intake and Output for Last 24 Hours 04/01/22 04/02/22 04/03/22 23:59 23:59 23:59 Intake Total 1269.83 / 1269.83 880 / 1380 900 / 900 Output Total 650 / 650 Balance 619.83 / 619.83 880 / 1380 900 / 900 Lab / Micro Data Result Diagrams: 04/03/22 04:00 04/03/22 04:00 Labs: Laboratory Results - last 24 hr 04/03/22 04:00: Magnesium 1.7 04/03/22 04:00: WBC 7.8, RBC 4.26 L, Hgb 12.2 L, Hct 39.5 L, MCV 92.7, MCH 28.6, MCHC 30.9 L, RDW Std Deviation 65.0 H, RDW Coeff of [place] 19.2 H, Plt Count 191, MPV 12.1 H, Immature Gran % (Auto) 0.300, Neut % (Auto) 72.5 H, Lymph % (Auto) 8.6 L, [place] % (Auto) 15.7 H, Eos % (Auto) 2.1, Baso % (Auto) 0.8, Absolute Neuts (auto) 5.6, Absolute Lymphs (auto) 0.67 L, Nucleated RBC % 0 04/03/22 04:00: Sodium 132 L, Potassium 3.2 L, Chloride 97 L, Carbon Dioxide 24.0, Anion Gap 11, BUN 58 H, Creatinine 4.02 H, Estim Creat Clear Calc 27.11, Est GFR (MDRD) Af Amer 23 L, Est GFR (MDRD) Non-Af 19 L, BUN/Creatinine Ratio 14.4, Glucose 103, Calcium 7.5 L Physical Exam Const alert, oriented x3 and no apparent distress HEENT head/scalp atraumatic, moist oral mucous membranes and oropharynx normal Head and Scalp: normocephalic Mouth: oral and palatal mucosa normal Eyes PERRL, EOMs intact bilaterally and conjunctivae normal Neck no lymphadenopathy and supple Resp Resp Narrative: mildly diminished breath sounds bibasally, no wheezes or crackles. On room air. Cardio regular rate, regular rhythm, S1 normal heart sound, S2 normal heart sound and no murmurs GI normal to inspection, nondistended, normoactive bowel sounds, soft to palpation, non-tender and non-distended GI Narrative: very edematous scrotum Extremity normal to inspection and full ROM Extremity Narrative: bilateral LE edema, no calf tenderness Neuro oriented x3, CN's II-XII intact bilaterally, moves all extremities and no focal motor deficits Sensorium / Orientation: awake and alert Motor Exam: strength 5/5 throughout Psych affect normal Assessment & Plan Assessment/Plan (1) Hypertensive emergency: (2) Acute kidney injury superimposed on chronic kidney disease: (3) Heart failure: PLAN: Plan #Acute on chronic HFpEF * on IV lasix 40mg bid * still complains of edema, with edematous scrotum and lower extremities * has known EF of 60%. * fluid restriction to 1500cc daily * bilateral NO wraps * will switch to PO lasix today * #JULIANNA on CKD 3B * kidney biopsy in January 2022 showed hypertensive global glomerulosclerosis with marked arteriolar mural thickening with myxoid exchange and moderate to marked large vessel hypertensive changes. * Cr on admission was 3.99;is 4.02 today. Baseline Cr is ~ 3.11. * likely due to lasix. WIll dc lasix today and switch to PO lasix * #Hypertensive emergency * resolved * on hydralazine, labetalol and spironolactone. amlodipine held due to lower extremity edema * #Elevated D dimer * D dimer was elevated at 6.83 * VQ scan showed low probability for PE * DUplex of lower extremities showed no evidence of DVT * #Elevated troponin * initial troponin was elevated at 112, but trended downwards * has previously had similarly elevated troponins. HEart failure as well as probable PE may also have contributed in addition to hypertensive emergency * will monitor * hold off on cardiology consult for now * #Hypokalemia: K is 3.2. Will replace and trend. Check magnesium also #Hyponatremia * sodium is 132 today * may be due to JULIANNA on CKD #Debility and weakness * PT/OT on board * will need skilled therapy on outpatient basis * DVT prophylaxis: lovenox, renally dosed * Disposition: for likely DC tomorrow Charges/Coding Visit Charges Inpatient E&M: 42677 Subs Hosp L2
[2022-04-03] MEDS: Potassium Chloride Oral Tablet 20 MEQ 40 MEQ PO (15:24)
[2022-04-03] MEDS: Doxazosin 4 MG Tablet PO (20:42)
[2022-04-03] MEDS: levETIRAcetam 500 MG Tablet PO (20:42)
[2022-04-04 03:00] VITALS: PULSE 90
[2022-04-04 04:00] VITALS: BP 122/84; PULSE 87; RESP 18; TEMP 36.6; O2SAT 98
[2022-04-04 05:25] LABS: Absolute Lymphocyte Count 0.75 X10^3/uL (0.83-4.51); Absolute Neutrophil Count 3.1 X10^3/uL (2.0-7.7); Basophil# 0.07 X10^3/uL; Basophil% 1.3 % (0-1); Eosinophil# 0.25 X10^3/uL; Eosinophils% 4.6 % (0-5); Hemoglobin 12.8 g/dL (13.0-16.5); Lymphocyte # 0.75 X10^3/ul (0.83-4.51); Lymphocyte % 13.9 % (19-41); Mean Corpuscular Hgb 29.7 pg (27.0-32.0); Mean Corpuscular Volume 92.8 fL (80-94); Mean Platelet Vol. 10.1 fl (6.2-12.0); Monocyte# 1.17 X10^3/uL; Monocyte% 21.7 % (0-10); NRBC Flagged by Analyzer 0 % (0-5); Neutrophil # 3.13 X10^3/uL (2.7-7.7); Neutrophil % 58.1 % (47-70); POSITIVE MORPHOLOGY YES; Platelet Count 172 K/mm3 (150-450); RBC Distribution Width SD 65.1 fl (35.1-43.9); Red Blood Count 4.31 M/mm3 (4.6-6.2); White Blood Count 5.4 K/mm3 (4.4-11.0)
[2022-04-04 05:26] VITALS: PULSE 85
[2022-04-04] MEDS: Sucralfate 1 GM Tablet PO (05:26)
[2022-04-04] MEDS: hydrALAZINE 50 MG Tablet PO (05:26)
[2022-04-04 05:28] LABS: Differential Indicated SCAN CRITERIA MET
[2022-04-04 06:13] LABS: Anion Gap 11 (5-15); BUN 55 mg/dL (7-18); Calcium,Total 7.6 mg/dL (8.5-10.1); Chloride 97 mmol/L (98-107); Creatinine, Serum 3.93 mg/dL (0.70-1.30); EST Glomerular Filtration Rate 19 mL/min (>60); Est Glom Filt Rate - Afr Amer 23 mL/min (>60); Estimated Creatinine Clearance 27.73 ml/min; Glucose 103 mg/dL (74-106); Potassium 3.7 mmol/L (3.5-5.1); Sodium Level 132 mmol/L (136-145)
[2022-04-04 06:57] LABS: Anisocytosis 2+
[2022-04-04 07:00] VITALS: PULSE 89
[2022-04-04 08:37] VITALS: BP 130/90; PULSE 92
[2022-04-04] MEDS: Acetaminophen 325 MG Tablet 650 MG PO (08:38)
[2022-04-04] MEDS: Labetalol 200 MG Tablet PO (08:39)
[2022-04-04] MEDS: Aspirin E.C. 81 MG Tablet PO (08:39)
[2022-04-04] MEDS: ARIPiprazole 5 MG Tablet 15 MG PO (08:39)
[2022-04-04] MEDS: Spironolactone 25 MG Tablet PO (08:39)
[2022-04-04] MEDS: Pantoprazole Sodium 40 MG Tablet PO (08:39)
[2022-04-04] MEDS: levETIRAcetam 250 MG Tablet PO (08:39)
[2022-04-04] MEDS: Furosemide 40 MG Tablet PO (08:57)
--- NOTE | 2022-04-04 09:40 | DCINST_ITS ---
Discharge Instructions Diet Discharge Diet: Low fat / Low cholesterol and Renal Diet Activity Discharge Activity: Return to Normal Activity Weight Bearing Status: Weight bearing as tolerated Dressing / Incision Call your doctor if you observe: Fever of 101 or Higher, Shortness of breath, Dizziness, Swelling in the ankles, Chest pain and Increased palpitations (irregular heartbeat) Follow Up Care Test Results: Test results from this visit will be discussed in further detail at your follow- up appointment, if applicable. Discharge Plan Admission Admit Date/Time: 04/01/22 00:57 Primary Reason for Your Visit: hypertensive emergency Attending Provider: Vibha Goldsmith Primary Care Provider: Care Physician,No Primary Consulting Providers: Stephon Guevara Instructions Patient Instructions: Controlling High Blood Pressure, ED High Blood Pressure Hypertension Discharge Orders/Prescriptions Prescriptions: New furosemide 40 mg Tablet 40 mg PO BIDCM Qty: 60 2RF labetalol 200 mg Tablet 200 mg PO TIDCM Qty: 90 2RF aspirin 81 mg Tablet,Delayed Release (Dr/Ec) 81 mg PO BREAKFAST Qty: 30 2RF spironolactone 25 mg Tablet 25 mg PO DAILY Qty: 30 2RF doxazosin 4 mg Tablet 4 mg PO QHS Qty: 30 2RF hydralazine 50 mg Tablet 50 mg PO TID Qty: 90 2RF amlodipine 5 mg tablet 5 mg PO BID Qty: 60 2RF Continued clonazepam [Klonopin] 1 mg Tablet 1 mg PO DAILY clonazepam [Klonopin] 1 mg Tablet 3 mg PO QHS aripiprazole [Abilify] 15 mg Tablet 15 mg PO BID sucralfate 1 gram tablet 1 g PO 1HR_ACHS labetalol 200 mg tablet 200 mg PO TID Qty: 90 2RF levetiracetam [Keppra] 500 mg Tablet 500 mg PO QHS Qty: 30 2RF amlodipine 5 mg tablet 5 mg PO BID Qty: 60 2RF omeprazole 40 mg Capsule,Delayed Release(Dr/Ec) 40 mg PO DAILY Qty: 30 2RF spironolactone 25 mg tablet 25 mg PO DAILY Qty: 30 2RF prazosin 5 mg Capsule 5 mg PO QHS Qty: 30 2RF levetiracetam [Keppra] 250 mg Tablet 250 mg PO DAILY Qty: 30 2RF hydralazine 50 mg tablet 50 mg PO TID Qty: 90 2RF Discontinued furosemide 20 mg tablet 60 mg PO DAILY Referrals / Follow Up: Rosa Barnes MD [Med Staff - Active Staff] - Within 2 Weeks (see to establish PCP care) Alysha Rico MD [Med Staff - Consulting] - Within 1 Week Care Physician,No Primary [Primary Care Provider] - Disposition Disposition (needs filled in before D/C Order can be placed): Home, Self Care
--- NOTE | 2022-04-04 09:41 | DS.PCM_ITS ---
Providers Date of Admission: 04/01/22 Date of Discharge: 04/04/22 Primary Care Physician: No Primary Care Phys Reason For Visit: HYPERTENSIVE EMERGENCY Diagnosis Discharge Diagnosis (1) Hypertensive emergency: Status: Acute Code(s): I16.1 - Hypertensive emergency (2) Acute kidney injury superimposed on chronic kidney disease: Status: Chronic Code(s): N17.9 - Acute kidney failure, unspecified; N18.9 - Chronic kidney disease, unspecified (3) Heart failure: Status: Acute Code(s): I50.9 - Heart failure, unspecified Plan #Acute on chronic HFpEF * on IV lasix 40mg bid * still complains of edema, with edematous scrotum and lower extremities * has known EF of 60%. * fluid restriction to 1500cc daily * bilateral NO wraps * will switch to PO lasix today * #JULIANNA on CKD 3B * kidney biopsy in January 2022 showed hypertensive global glomerulosclerosis with marked arteriolar mural thickening with myxoid exchange and moderate to marked large vessel hypertensive changes. * Cr on admission was 3.99;is 4.02 today. Baseline Cr is ~ 3.11. * likely due to lasix. WIll dc lasix today and switch to PO lasix * #Hypertensive emergency * resolved * on hydralazine, labetalol and spironolactone. amlodipine held due to lower extremity edema * #Elevated D dimer * D dimer was elevated at 6.83 * VQ scan showed low probability for PE * DUplex of lower extremities showed no evidence of DVT * #Elevated troponin * initial troponin was elevated at 112, but trended downwards * has previously had similarly elevated troponins. HEart failure as well as probable PE may also have contributed in addition to hypertensive emergency * will monitor * hold off on cardiology consult for now * #Hypokalemia: K is 3.2. Will replace and trend. Check magnesium also #Hyponatremia * sodium is 132 today * may be due to JULIANNA on CKD #Debility and weakness * PT/OT on board * will need skilled therapy on outpatient basis * DVT prophylaxis: lovenox, renally dosed * Disposition: for likely DC tomorrow Medications at Discharge Home Medications aripiprazole 15 mg tablet (Abilify) 15 mg PO BID mood stabilizer 07/30/21 clonazepam 1 mg tablet (Klonopin) 1 mg PO DAILY mood stabilizer 07/30/21 clonazepam 1 mg tablet (Klonopin) 3 mg PO QHS mood stabilizer 07/30/21 sucralfate 1 gram tablet 1 g PO 1HR_ACHS stomach 12/05/21 amlodipine 5 mg tablet 5 mg PO BID #60 tabs 04/04/22 amlodipine 5 mg tablet 5 mg PO BID blood pressure #60 tabs 04/04/22 aspirin 81 mg tablet,delayed release 81 mg PO BREAKFAST #30 tabs 04/04/22 doxazosin 4 mg tablet 4 mg PO QHS #30 tabs 04/04/22 furosemide 40 mg tablet 40 mg PO BIDCM #60 tabs 04/04/22 hydralazine 50 mg tablet 50 mg PO TID #90 tabs 04/04/22 hydralazine 50 mg tablet 50 mg PO TID blood pressure #90 tabs 04/04/22 labetalol 200 mg tablet 200 mg PO TID blood pressure #90 tabs 04/04/22 labetalol 200 mg tablet 200 mg PO TIDCM #90 tabs 04/04/22 levetiracetam 250 mg tablet (Keppra) 250 mg PO DAILY tremors #30 tabs 04/04/22 levetiracetam 500 mg tablet (Keppra) 500 mg PO QHS tremors #30 tabs 04/04/22 omeprazole 40 mg capsule,delayed release 40 mg PO DAILY gerd #30 caps 04/04/22 prazosin 5 mg capsule 5 mg PO QHS blood pressure/ anxiety #30 caps 04/04/22 spironolactone 25 mg tablet 25 mg PO DAILY #30 tabs 04/04/22 spironolactone 25 mg tablet 25 mg PO DAILY water pill #30 tabs 04/04/22 Hospital Course Operations None Procedures None Summary of Care Provided Minutes Spent on Discharge: 50 Hospital Course: Patient is a 27 y/o male with a PMH as outlined which includes ischemic stroke, hypertension and CKD who was admitted via the ED on 04/01/2022 with a complaint of left sided chest pain which started about an hour before admission. Pain was persistent, with no aggravating or relieving factors. He also complained of worsening lower extremity swelling which had been worsening, resulting in decreased mobility. WHen EMS arrived, he was saturating in the 80s on room air. On admission, BP was markedly elevated, in the 200s systolic and he was also tachycardic and tachypneic.CXR done showed patchy areas of opacification in both lower lungs and stable mild cardiomegaly. He was admitted and managed for hypertensive emergency, JULIANNA on CKD 3B and acute on chronic HFpEF. HE was diursed with IV lasix. He was given IV labetalol and clonidine, and started on his home oral BP meds, which he hadnt been compliant with. His BP gradually improved and came back to baseline. His Cr trended upwards with IV lasix, but after he was switched to PO lasix, it started trending downwards. His D dimer was ellevated on admission, and so he started on heparin drip whilst awaiting VQ scan. VQ scan showed low probability of PE and duplex of the lower extremities was also negative for PE. Heparin drip was therefore discontinued. His troponin was also elevated, but was at a similar level from previous bloodwork. It also trended downwards. He worked with PT/OT o/a of his weakness; he was deemed as needing PT/OT outpatient basis. He however declined home therapy. His blood pressure control improved and he felt better. He was discharged home on 04/04/2022. His Lasix was decreased to 40 mg twice daily on account of his kidney function. He is to follow-up with his primary care doctor and to follow- up with nephrology and consulted compliant with his medications. Of note, hospital course was also complicated by reported sudden complete loss of vision in his right eye. He had had some impaired vision in his right eye as a result of his stroke. This was discussed with the maternal fetal physician on-call Dr. Kennedy who stated that this was likely due to vasculopathy and less likely due to retin al detachment especially in light of patient's history of stroke. Recommended follow-up on outpatient basis. The vision in his right eye does subsequently improved from his knee to his baseline at time of discharge. Patient seen and examined prior to discharge. He had no active complaints and had an uneventful night. Review of systems otherwise negative. Labs and vitals reviewed. Home medication reviewed and reconciled. Physical Exam Const alert, oriented x3 and no apparent distress General Appearance: cooperative and comfortable Orientation / Consciousness: awake Exam Limitations: no limitations HEENT normocephalic, head/scalp atraumatic, hearing grossly normal bilaterally, moist oral mucous membranes and oropharynx normal Mouth: oral and palatal mucosa normal Eyes PERRL, EOMs intact bilaterally and conjunctivae normal Neck no lymphadenopathy and supple Resp Resp Narrative: mildly diminished breath sounds bibasally, no wheezes or crackles. On room air. Cardio regular rate, regular rhythm, S1 normal heart sound, S2 normal heart sound and no murmurs GI normal to inspection, nondistended, normoactive bowel sounds, soft to palpation, non-tender and non-distended GI Narrative: very edematous scrotum Extremity normal to inspection and full ROM Extremity Narrative: bilateral LE edema, no calf tenderness Skin no rashes or lesions noted Neuro oriented x3, CN's II-XII intact bilaterally, moves all extremities and no focal motor deficits Sensorium / Orientation: awake and alert Motor Exam: strength 5/5 throughout Psych affect normal Weight / BMI Weight Weight: 258 lb 7.519 oz Body Mass Index (BMI) 38.2 ABG / Lab / Microbiology Data Result Diagrams: 04/04/22 05:04 04/04/22 05:04 Laboratory: Laboratory Results - last 24 hr 04/04/22 05:04: WBC 5.4, RBC 4.31 L, Hgb 12.8 L, Hct 40.0, MCV 92.8, MCH 29.7, MCHC 32.0, RDW Std Deviation 65.1 H, RDW Coeff of [place] 19.0 H, Plt Count 172, MPV 10.1, Immature Gran % (Auto) 0.400, Neut % (Auto) 58.1, Lymph % (Auto) 13.9 L, M karrie % (Auto) 21.7 H, Eos % (Auto) 4.6, Baso % (Auto) 1.3 H, Absolute Neuts (auto) 3.1, Absolute Lymphs (auto) 0.75 L, Nucleated RBC % 0, Anisocytosis 2+ 04/04/22 05:04: Sodium 132 L, Potassium 3.7, Chloride 97 L, Carbon Dioxide 24.0, Anion Gap 11, BUN 55 H, Creatinine 3.93 H, Estim Creat Clear Calc 27.73, Est GFR (MDRD) Af Amer 23 L, Est GFR (MDRD) Non-Af 19 L, BUN/Creatinine Ratio 14.0, Glucose 103, Calcium 7.6 L D/C Instructions Discharge Diet: Low fat / Low cholesterol and Renal Diet Weight Bearing Status: Weight bearing as tolerated Call your doctor if you observe: Fever of 101 or Higher, Shortness of breath, Dizziness, Swelling in the ankles, Chest pain and Increased palpitations (irregular heartbeat) Meaningful Use Info Meaningful Use Diagnoses (Choose all that apply): CHF CHF NO/ARB ordered at discharge?: No Reason NO/ARB not ordered?: Worsening renal disease Documented LVEF (%): 60 Discharge Plan Admission Admit Date/Time: 04/01/22 00:57 Primary Reason for Your Visit: hypertensive emergency Attending Provider: Vibha Goldsmith Primary Care Provider: Care Physician,No Primary Consulting Providers: Stephon Guevara Instructions Patient Instructions: Controlling High Blood Pressure, ED High Blood Pressure Hypertension Discharge Orders/Prescriptions Prescriptions: New furosemide 40 mg Tablet 40 mg PO BIDCM Qty: 60 2RF labetalol 200 mg Tablet 200 mg PO TIDCM Qty: 90 2RF aspirin 81 mg Tablet,Delayed Release (Dr/Ec) 81 mg PO BREAKFAST Qty: 30 2RF spironolactone 25 mg Tablet 25 mg PO DAILY Qty: 30 2RF doxazosin 4 mg Tablet 4 mg PO QHS Qty: 30 2RF hydralazine 50 mg Tablet 50 mg PO TID Qty: 90 2RF amlodipine 5 mg tablet 5 mg PO BID Qty: 60 2RF Continued clonazepam [Klonopin] 1 mg Tablet 1 mg PO DAILY clonazepam [Klonopin] 1 mg Tablet 3 mg PO QHS aripiprazole [Abilify] 15 mg Tablet 15 mg PO BID sucralfate 1 gram tablet 1 g PO 1HR_ACHS labetalol 200 mg tablet 200 mg PO TID Qty: 90 2RF levetiracetam [Keppra] 500 mg Tablet 500 mg PO QHS Qty: 30 2RF amlodipine 5 mg tablet 5 mg PO BID Qty: 60 2RF omeprazole 40 mg Capsule,Delayed Release(Dr/Ec) 40 mg PO DAILY Qty: 30 2RF spironolactone 25 mg tablet 25 mg PO DAILY Qty: 30 2RF prazosin 5 mg Capsule 5 mg PO QHS Qty: 30 2RF levetiracetam [Keppra] 250 mg Tablet 250 mg PO DAILY Qty: 30 2RF hydralazine 50 mg tablet 50 mg PO TID Qty: 90 2RF Discontinued furosemide 20 mg tablet 60 mg PO DAILY Referrals / Follow Up: Linn Ware MD [Med Staff - Active Staff] - 04/18/22 9:00 am (To establish with PCP. Please arrive by 0830 for 0900 appointment.) Nancy Pinzon NP-C [Med Staff - Adv Practice Prof] - 04/15/22 3:30 pm (Appointment is in [place] with nurse practitioner.) Disposition Disposition (needs filled in before D/C Order can be placed): Home, Self Care Charges/Coding Visit Charges Inpatient E&M: 67697 Disch Hosp
--- NOTE | 2022-04-04 10:11 | CASEMGMT ---
Addendum entered by Jaylyn Matias 04/04/22 11:31: Per Patti in pharmacy, still working on meds and states no concerns for cost of jd meds thru [facility] Rx assist. Nik AVILA CM Original Note: This RN CM to room to discuss d/c plan. Pt states he plans to complete JARRET tay as he has been off work. Pt declines need for therapy at discharge. Pt states has not had meds 'in months' d/t inability to pay. [facility] Rx assist program to be used and pt encouraged to get JARRET tay completed and turned in, voices understanding. Patti in pharmacy updated on Rx assist and paper tubed to pharmacy. Pt states no further concerns with going home at time of discharge. Pt states has been in a lot of pain so has not been moving much at home and is aware that he needs to keep moving. Nik AVILA CM
[2022-04-04 11:25] VITALS: BP 132/98; PULSE 91; RESP 16; TEMP 36.1; O2SAT 100
[2022-04-05 16:07] LABS: KEPPRA (LEVETIRACETAM) <2.0 ug/mL (10.0-40.0)
== END 2022-04-04 12:56 | disposition home or self-care (01) | DRG 291 ==
LOC: ED 23:02 → PCU 04-01 01:13
PROVIDERS: Admitting Provider Hospitalist; Emergency Provider Emergency Medicine; Visit Provider Student in an Organized Health Care Education/Training Program
DX: I13.0 Hypertensive heart and chronic kidney disease with heart failure and stage 1 through stage 4 chronic kidney disease, or unspecified chronic kidney disease (principal); I50.33 Acute on chronic diastolic (congestive) heart failure; E87.1 Hypo-osmolality and hyponatremia; N17.9 Acute kidney failure, unspecified; I16.1 Hypertensive emergency; F31.9 Bipolar disorder, unspecified; N18.32 Chronic kidney disease, stage 3b; F17.210 Nicotine dependence, cigarettes, uncomplicated; E87.6 Hypokalemia; R53.81 Other malaise; N50.89 Other specified disorders of the male genital organs; Z86.73 Personal history of transient ischemic attack (TIA), and cerebral infarction without residual deficits; R79.89 Other specified abnormal findings of blood chemistry
CPT/HCPCS: 36415; 71045; 78582; 80048; 80177; 83735; 83880; 84484; 85025; 85379; 85610; 85730; 93005; 93970; 97162; 97166; 97802; 99285; 99406; A9540; A9567; 90686; A4216; J1940; J2405

== ENCOUNTER 2022-04-15 17:16 | Inpatient (IN) | payer MEDICAID, SELFPAY ==
[2022-04-15] VITALS (10 sets, daily range): BP systolic 174–239; BP diastolic 97–148; PULSE 102–123; RESP 17–28; TEMP 36.6–37.4; O2SAT 95–100; BMI 40.3; BMI 38.9
--- NOTE | 2022-04-15 17:57 | EDS_ITS ---
HPI History of Present Illness Chief Complaint: Shortness of Breath Narrative Narrative: 27-year-old male with history of poorly controlled hypertension, MS, CHF presenting with chest pressure and shortness of breath. He states this really started yesterday. Recently admitted for similar symptoms. He states he has been taking all of his blood pressure medicine. He states he is dyspneic as well. He has not had a fever at home. States he went to follow-up appointment today as follow-up for his acute kidney injury and he was referred back to the ER. [facility] Medical History (Updated 04/15/22 @ 17:26 by Yadira Mcpherson) Bipolar 1 disorder Bleach ingestion CHF (congestive heart failure) CVA (cerebral vascular accident) Elevated d-dimer GERD (gastroesophageal reflux disease) GI bleed History of ischemic stroke Hypertension Irritable bowel syndrome (IBS) Multiple sclerosis PUD (peptic ulcer disease) Seizure disorder Suicide gesture Tobacco abuse Home Medications amlodipine 5 mg tablet 5 mg PO BID BLOOD PRESSURE 04/15/22 [History Last Taken 04/15/22] aspirin 81 mg tablet,delayed release 81 mg PO BREAKFAST HEART HEALTH 04/15/22 [History Last Taken 04/15/22] doxazosin 4 mg tablet 4 mg PO QHS BLOOD PRESSURE 04/15/22 [History Last Taken 04/14/22] furosemide 40 mg tablet 40 mg PO BIDCM FLUID 04/15/22 [History Last Taken 04/15/22] hydralazine 50 mg tablet 50 mg PO TID BLOOD PRESSURE 04/15/22 [History Last Taken 04/15/22] labetalol 200 mg tablet 200 mg PO TIDCM BLOOD PRESSURE 04/15/22 [History Last Taken 04/15/22] omeprazole 40 mg capsule,delayed release 40 mg PO DAILY ACID REFLUX 04/15/22 [History Last Taken 04/15/22] spironolactone 25 mg tablet 25 mg PO DAILY FLUID 04/15/22 [History Last Taken 04/15/22] Allergy/AdvReac Type Severity Reaction Status Date / Time No Known Allergies Allergy Verified 04/15/22 17:16 Family History Mother Diabetes Hypertension HLD (hyperlipidemia) Bipolar disorder Father Hypertension HLD (hyperlipidemia) Bipolar disorder Diabetes Surgical History H/O left knee surgery Social History household members: none Smoking Status: Current every day smoker tobacco type: e-cigarettes Smokeless tobacco user: other alcohol intake: current alcohol intake frequency: a few times a week substance use type: does not use ROS ROS ED Constitutional Constitutional ED: Denies chills or fever(s) Eyes Eyes: Denies diplopia ENT ENT ED: Denies rhinorrhea or sore throat Cardiovascular Cardiovascular: Reports chest pain and racing heartbeat Respiratory/Chest Respiratory/Chest: Reports cough, dyspnea and dyspnea on exertion Gastrointestinal Gastrointestinal: Denies abdominal pain Genitourinary Genitourinary ED: Denies dysuria or hematuria Musculoskeletal Musculoskeletal: Denies arthralgias or back pain Integumentary Denies abscess or Abrasions Neurologic Neurologic: Reports headache(s) Psychiatric Psychiatric: Denies anxiety or depression EXAM Physical Exam Const Vital Signs: 04/15/22 17:17 04/15/22 17:25 04/15/22 18:26 Temperature 99.3 F H Temperature Source Temporal Pulse Rate 123 H Respiratory Rate 25 H Respiratory Effort Short of Breath Labored Respiratory Depth Shallow Respiratory Pattern Tachypnea Blood Pressure 239/148 H Blood Pressure Mean 178 Pulse Ox 95 99 Oxygen Delivery Method Nasal Cannula Oxygen Flow Rate (L/min) 2 04/15/22 18:49 04/15/22 19:02 04/15/22 19:04 Temperature Temperature Source Pulse Rate 105 H 105 H 105 H Respiratory Rate 24 H Respiratory Effort Respiratory Depth Respiratory Pattern Blood Pressure 193/129 H 174/97 H 174/97 H Blood Pressure Mean 122 Pulse Ox 97 Oxygen Delivery Method Nasal Cannula Oxygen Flow Rate (L/min) 04/15/22 19:30 Temperature Temperature Source Pulse Rate 106 H Respiratory Rate Respiratory Effort Respiratory Depth Respiratory Pattern Blood Pressure 180/126 H Blood Pressure Mean Pulse Ox Oxygen Delivery Method Oxygen Flow Rate (L/min) Positive obese General Appearance ED: Negative for pallor Nutritional Appearance: obese HEENT Reports dry mucous membranes Mouth ED: Yes dry mucous membranes Mouth: dry mucous membranes Eyes PERRL and EOMs intact bilaterally Neck no lymphadenopathy Resp Resp Narrative: Tachypneic Auscultation: diminished lung sounds bilateral and diffuse Cardio regular rate Rate: tachycardic Extremity General Extremety ED: Yes edema; Negative for tenderness General Extremity: edema Neuro oriented x3 and CN's II-XII intact bilaterally Sensorium / Orientation: alert Motor Exam: general weakness Psych mental status grossly normal Skin no wounds and skin turgor normal General Skin Exam: Negative for jaundice or pallor MDM MDM MDM Narrative Medical decision making narrative: Patient presenting with chest pain and shortness of breath. He has lower e xtremity edema as well. Patient was given nitroglycerin in the ED which did help his chest pain. He was also given 20 mg of labetalol. His blood pressure came down to 180/126 from 239/148. He states his chest pain is improved. CBC is normal. BMP shows a creatinine of 2.40 which is actually improved. High- sensitivity troponin is 24. EKG sinus tachycardia with a ventricular rate of 118 bpm without sign of ischemic change. Chest x-ray to my interpretation shows pulmonary edema and cardiomegaly. I suspect the patient is in CHF given his symptoms. Patient given 40 mg of Lasix. Delta troponin is 28 and there is no significant interval change. Patient recently had had a VQ scan which was low risk for PE. Given the patient's continued elevated blood pressure and symptoms I think he benefit from inpatient care discussed with the hospitalist for admission. Impression: 1. Hypertensive emergency 2. Chest pain 3. Dyspnea on 4. CHF Lab Data Attestation: I reviewed the patient's lab results. Labs: Laboratory Results - last 24 hr 04/15/22 04/15/22 04/15/22 17:45 17:45 17:45 WBC 7.2 RBC 4.21 L Hgb 12.0 L Hct 38.3 L MCV 91.0 MCH 28.5 MCHC 31.3 L RDW Std Deviation 60.6 H RDW Coeff of [place] 18.3 H Plt Count 256 MPV 11.2 Immature Gran % (Auto) 0.300 Neut % (Auto) 72.6 H Lymph % (Auto) 11.8 L [place] % (Auto) 9.7 Eos % (Auto) 3.8 Baso % (Auto) 1.8 H Absolute Neuts (auto) 5.2 Absolute Lymphs (auto) 0.85 Nucleated RBC % 0 Sodium 140 Potassium 4.2 Chloride 110 H Carbon Dioxide 22.0 Anion Gap 8 BUN 15 Creatinine 2.40 H Estim Creat Clear Calc 45.41 Est GFR (MDRD) Af Amer 41 L Est GFR (MDRD) Non-Af 34 L BUN/Creatinine Ratio 6.2 L Glucose 109 H Calcium 8.3 L Troponin I High Sens 24 B-Natriuretic Peptide 2293.9 H 04/15/22 20:53 WBC RBC Hgb Hct MCV MCH MCHC RDW Std Deviation RDW Coeff of [place] Plt Count MPV Immature Gran % (Auto) Neut % (Auto) Lymph % (Auto) [place] % (Auto) Eos % (Auto) Baso % (Auto) Absolute Neuts (auto) Absolute Lymphs (auto) Nucleated RBC % Sodium Potassium Chloride Carbon Dioxide Anion Gap BUN Creatinine Estim Creat Clear Calc Est GFR (MDRD) Af Amer Est GFR (MDRD) Non-Af BUN/Creatinine Ratio Glucose Calcium Troponin I High Sens 28 B-Natriuretic Peptide Radiography Diagnostic Testing: Clinical Impression(s) from Imaging Studies Chest X-Ray 04/15/22 18:50 IMPRESSION: Mild bibasilar infiltrate or pulmonary edema with cardiomegaly.. . Cannot exclude mild congestive failure Electronically Signed: Damir Silva MD at 19:09 EST , Discharge Plan Triage Chief Complaint: Shortness of Breath ED Provider: Osbaldo Go Dx/Rx/DC Orders Primary Care Provider: Care Physician,No Primary
--- NOTE | 2022-04-15 18:00 | EKG12_ITS ---
Test Reason : Blood Pressure : / mmHG Vent. Rate : 118 BPM Atrial Rate : 118 BPM P-R Int : 126 ms QRS Dur : 084 ms QT Int : 346 ms P-R-T Axes : 033 036 007 degrees QTc Int : 484 ms Sinus tachycardia Cannot rule out Anterior infarct , age undetermined Abnormal ECG Confirmed by NANY HAYS, NEREYDA ([id number]), dictionary editor JARAD ESTRADA ([id number]) on 04/19/2022 11:08:11 AM Referred By: RAOUL Confirmed By:FRANCK AYON MD
[2022-04-15] MEDS: Aspirin 81 MG TAB.CHEW 324 MG PO (18:09)
[2022-04-15] MEDS: Labetalol (Prefilled) 20 MG/4 ML IV (18:10)
[2022-04-15 18:14] LABS: Absolute Lymphocyte Count 0.85 X10^3/uL (0.83-4.51); Absolute Neutrophil Count 5.2 X10^3/uL (2.0-7.7); Basophil# 0.13 X10^3/uL; Basophil% 1.8 % (0-1); Eosinophil# 0.27 X10^3/uL; Eosinophils% 3.8 % (0-5); Hematocrit 38.3 % (40-54); Lymphocyte # 0.85 X10^3/ul (0.83-4.51); Lymphocyte % 11.8 % (19-41); Mean Corp Hgb Conc 31.3 g/dL (32-36); Mean Corpuscular Hgb 28.5 pg (27.0-32.0); Mean Platelet Vol. 11.2 fl (6.2-12.0); Monocyte% 9.7 % (0-10); NRBC Flagged by Analyzer 0 % (0-5); Neutrophil # 5.21 X10^3/uL (2.7-7.7); Neutrophil % 72.6 % (47-70); Platelet Count 256 K/mm3 (150-450); RBC Distribution Width CV 18.3 % (11.6-14.6); RBC Distribution Width SD 60.6 fl (35.1-43.9); Red Blood Count 4.21 M/mm3 (4.6-6.2); White Blood Count 7.2 K/mm3 (4.4-11.0)
[2022-04-15 18:29] LABS: Anion Gap 8 (5-15); BUN 15 mg/dL (7-18); BUN/Creat Ratio 6.2 RATIO (10-20); Calcium,Total 8.3 mg/dL (8.5-10.1); Chloride 110 mmol/L (98-107); EST Glomerular Filtration Rate 34 mL/min (>60); Est Glom Filt Rate - Afr Amer 41 mL/min (>60); Estimated Creatinine Clearance 45.41 ml/min; Glucose 109 mg/dL (74-106); Potassium 4.2 mmol/L (3.5-5.1); Sodium Level 140 mmol/L (136-145); Troponin-I HS (w/2H Reflex) 24 pg/mL (3.0-78.0)
[2022-04-15] MEDS: Nitroglycerin SL (ED/IMG/CATH) 0.4 MG TABLET SL ×3 (18:49→19:30)
--- NOTE | 2022-04-15 18:50 | RAD_ITS ---
INDICATION: chest pain EXAMINATION/TECHNIQUE: X-RAY - XR Chest 1 View COMPARISON: March 31, 2022. FINDINGS: LINES/DEVICES: None. LUNGS: Mild bibasilar pulmonary edema or infiltrate.. No pneumothorax. MEDIASTINUM AND CARDIOVASCULAR STRUCTURES: Heart is enlarged.. Central airways and mediastinal contour are unremarkable. BONES AND SOFT TISSUES: Unremarkable. RAD/Chest 1 View (Portable) IMPRESSION: Mild bibasilar infiltrate or pulmonary edema with cardiomegaly.. . Cannot exclude mild congestive failure Electronically Signed: Damir Silva MD at 19:09 EST ,
[2022-04-15 20:09] LABS: Reflex Troponin-HS? (from REC) Y
[2022-04-15 21:18] LABS: Troponin-I HS 28 pg/mL (3.0-78.0)
[2022-04-15] MEDS: Furosemide 40 MG/4 ML Vial IV (21:44)
--- NOTE | 2022-04-15 21:53 | HP.PCM.HOS_ITS ---
HPI - General General Date of Admission: 04/15/22 Date of Service: 04/15/22 Chief Complaint: Generalized swelling HPI Narrative EDU WILCOX, is a 27 M with a significant history of ischemic stroke; hypertension; anasarca; and hypertension who presents to the emergency department with swelling. He reported that his swelling has been going on for months. Previously it was episodic but now it is persistent. He was admitted to the hospital on 04/01/2022 and discharged on 04/04/2022. He report that on follow-up appointment with his nephrology. After he discussed his symptoms with the criminal justice professor he was instructed come to the emergency department. He reports swelling in his bilateral upper extremities and lower extremities. He also reports swelling in his abdomen. He reports shortness of breath. His shortness of breath worsens with minimal activity. He reports left sided chest pain 5-6 on a severity scale of 1-10. He described chest pain as troponin. He received nitroglycerin at emergency department at helped his chest pain to improve. [facility] Medical History Bipolar 1 disorder Bleach ingestion CHF (congestive heart failure) CVA (cerebral vascular accident) Elevated d-dimer GERD (gastroesophageal reflux disease) GI bleed History of ischemic stroke Hypertension Irritable bowel syndrome (IBS) Multiple sclerosis PUD (peptic ulcer disease) Seizure disorder Suicide gesture Tobacco abuse Home Medications amlodipine 5 mg tablet 5 mg PO BID BLOOD PRESSURE 04/15/22 [History Last Taken 04/15/22] aspirin 81 mg tablet,delayed release 81 mg PO BREAKFAST HEART HEALTH 04/15/22 [History Last Taken 04/15/22] doxazosin 4 mg tablet 4 mg PO QHS BLOOD PRESSURE 04/15/22 [History Last Taken 04/14/22] furosemide 40 mg tablet 40 mg PO BIDCM FLUID 04/15/22 [History Last Taken 04/15/22] hydralazine 50 mg tablet 50 mg PO TID BLOOD PRESSURE 04/15/22 [History Last Taken 04/15/22] labetalol 200 mg tablet 200 mg PO TIDCM BLOOD PRESSURE 04/15/22 [History Last Taken 04/15/22] omeprazole 40 mg capsule,delayed release 40 mg PO DAILY ACID REFLUX 04/15/22 [History Last Taken 04/15/22] spironolactone 25 mg tablet 25 mg PO DAILY FLUID 04/15/22 [History Last Taken 04/15/22] Allergy/AdvReac Type Severity Reaction Status Date / Time No Known Allergies Allergy Verified 04/15/22 17:16 Family History Mother Diabetes Hypertension HLD (hyperlipidemia) Bipolar disorder Father Hypertension HLD (hyperlipidemia) Bipolar disorder Diabetes Surgical History H/O left knee surgery Social History household members: none Smoking Status: Current every day smoker tobacco type: e-cigarettes Smokeless tobacco user: other alcohol intake: current alcohol intake frequency: a few times a week substance use type: does not use ROS ROS Narrative Pertinent positives and pertinent negatives as noted in HPI. All other systems were reviewed and are negative Vital Signs Vital Signs Vital Signs: 04/15/22 17:17 04/15/22 17:25 04/15/22 18:26 Temperature 99.3 F H Temperature Source Temporal Pulse Rate 123 H Respiratory Rate 25 H Respiratory Effort Short of Breath Labored Respiratory Depth Shallow Respiratory Pattern Tachypnea Blood Pressure 239/148 H Blood Pressure Mean 178 Pulse Ox 95 99 Oxygen Delivery Method Nasal Cannula Oxygen Flow Rate (L/min) 2 04/15/22 18:49 04/15/22 19:02 04/15/22 19:04 Temperature Temperature Source Pulse Rate 105 H 105 H 105 H Respiratory Rate 24 H Respiratory Effort Respiratory Depth Respiratory Pattern Blood Pressure 193/129 H 174/97 H 174/97 H Blood Pressure Mean 122 Pulse Ox 97 Oxygen Delivery Method Nasal Cannula Oxygen Flow Rate (L/min) 04/15/22 19:30 Temperature Temperature Source Pulse Rate 106 H Respiratory Rate Respiratory Effort Respiratory Depth Respiratory Pattern Blood Pressure 180/126 H Blood Pressure Mean Pulse Ox Oxygen Delivery Method Oxygen Flow Rate (L/min) Weight Weight: 123.876 kg Body Mass Index (BMI) 40.3 Physical Exam Narrative Physical exam: General: Well-nourished, well-developed. Head: Normocephalic, atraumatic, no tenderness Eyes: Vision is grossly intact. EOMI ENT, no trauma, moist mucous membranes, no rhinorrhea Neck: Nontender, No thyromegaly. CVS: Regular rate and rhythm. S1-S2 present. No murmur, gallop or rub. Respiratory : clear to auscultation bilaterally, chest wall nontender, no wheezing Abdomen: Soft, nontender, nondistended, normal bowel sounds, no masses : Deferred Back: Nontender, no CVA tenderness, no midline spinal tenderness, deformities, step-offs Extremities: Bilateral upper and lower extremity pitting edema. Nontender full range of motion, no trauma Skin: Normal color, no trauma, abrasions Neuro: Alert, oriented, cranial nerves II through XII grossly intact. Psychiatry: Normal mood. Normal affect. Not depressed. Not anxious. Results Lab / Micro Data Result Diagrams: 04/16/22 02:44 04/16/22 02:44 Labs: Laboratory Results - last 24 hr 04/15/22 17:45: WBC 7.2, RBC 4.21 L, Hgb 12.0 L, Hct 38.3 L, MCV 91.0, MCH 28.5, MCHC 31.3 L, RDW Std Deviation 60.6 H, RDW Coeff of [place] 18.3 H, Plt Count 256, MPV 11.2, Immature Gran % (Auto) 0.300, Neut % (Auto) 72.6 H, Lymph % (Auto) 11.8 L, [place] % (Auto) 9.7, Eos % (Auto) 3.8, Baso % (Auto) 1.8 H, Absolute Neuts (auto) 5.2, Absolute Lymphs (auto) 0.85, Nucleated RBC % 0 04/15/22 17:45: Sodium 140, Potassium 4.2, Chloride 110 H, Carbon Dioxide 22.0, Anion Gap 8, BUN 15, Creatinine 2.40 H, Estim Creat Clear Calc 45.41, Est GFR (MDRD) Af Amer 41 L, Est GFR (MDRD) Non-Af 34 L, BUN/Creatinine Ratio 6.2 L, Gl ucose 109 H, Calcium 8.3 L, Troponin I High Sens 24 04/15/22 17:45: B-Natriuretic Peptide 2293.9 H 04/15/22 20:53: Troponin I High Sens 28 Micro: Microbiology 04/15/22 19:32 Nasal Secretion SARS-CoV-2 & FLU Antigen (Rapid) - Final Radiology Impression Chest X-Ray 04/15/22 18:50 IMPRESSION: Mild bibasilar infiltrate or pulmonary edema with cardiomegaly.. . Cannot exclude mild congestive failure Electronically Signed: Damir Silva MD at 19:09 EST Reading Location ID and State: [address] [place] [address] , Service support , Assessment & Plan Assessment/Plan (1) Hypertensive emergency: (2) Heart failure due to high blood pressure: (3) CKD (chronic kidney disease) stage 3, GFR 30-59 ml/min: PLAN: Plan Acute on chronic heart failure with preserved ejection fraction Weight on admission to the floor; and then daily Strict? I&O's CXR was visualized and independently interpreted.? I agree with radiologist? interpretation of mild bibasilar infiltrate or pulmonary edema with cardio megaly. Transthoracic echocardiogram on 12/06/2021 showed estimated EF of 60%.? Fletcher wrap to bilateral lower extremities Fluid restriction of 1500 mls daily. Lasix IV push ordered. 2 g cardiac diet CKD stage IIIa Left kidney biopsy in January 2022 showed hypertensive global glomerulosclerosis; marked arteriolar mural thickening with myxoid change; moderate to marked large vessel hypertensive changes; renal cortical/parenchymal interstitial fibrosis. Review of records show that his kidney is likely at the new baseline. Trend BMP. Hypertensive Emergency Highest systolic blood pressure on presentation 239. High diastolic blood pressure on presentation 148. Admitted to intensive care unit and started on nicardipine drip. Resume home medications Trend blood pressures. DVT prophylaxis: Subcutaneous Lovenox.
[2022-04-16] VITALS (59 sets, daily range): BP systolic 120–220; BP diastolic 43–153; PULSE 91–121; RESP 14–31; TEMP 36.2–37.1; O2SAT 92–99
--- NOTE | 2022-04-16 | EKG12_ITS ---
Test Reason : CHEST PAIN Blood Pressure : / mmHG Vent. Rate : 104 BPM Atrial Rate : 104 BPM P-R Int : 132 ms QRS Dur : 088 ms QT Int : 368 ms P-R-T Axes : 049 050 002 degrees QTc Int : 483 ms Sinus tachycardia Otherwise normal ECG Confirmed by NAT HAYS, ALBERTO ([id number]), editor & co founder JARAD ESTRADA ([id number]) on 04/23/2022 7:44:43 AM Referred By: SAMEERA CONNELL Confirmed By:ALBERTO JOHNS MD
[2022-04-16] MEDS: amLODIPine 5 MG Tablet PO ×3 (00:20→20:52)
[2022-04-16] MEDS: Doxazosin 4 MG Tablet PO ×2 (00:20→20:53)
[2022-04-16] MEDS: hydrALAZINE 50 MG Tablet PO ×4 (00:21→20:52)
[2022-04-16 01:25] LABS: Troponin-I HS 30 pg/mL (3.0-78.0)
[2022-04-16 02:52] LABS: Absolute Lymphocyte Count 0.86 X10^3/uL (0.83-4.51); Absolute Neutrophil Count 5.4 X10^3/uL (2.0-7.7); Basophil# 0.11 X10^3/uL; Basophil% 1.5 % (0-1); Eosinophil# 0.27 X10^3/uL; Eosinophils% 3.7 % (0-5); Hematocrit 34.8 % (40-54); Hemoglobin 10.6 g/dL (13.0-16.5); Lymphocyte # 0.86 X10^3/ul (0.83-4.51); Lymphocyte % 11.7 % (19-41); Mean Corp Hgb Conc 30.5 g/dL (32-36); Mean Corpuscular Hgb 28.3 pg (27.0-32.0); Mean Corpuscular Volume 92.8 fL (80-94); Mean Platelet Vol. 10.1 fl (6.2-12.0); Monocyte# 0.74 X10^3/uL; NRBC Flagged by Analyzer 0 % (0-5); Neutrophil # 5.37 X10^3/uL (2.7-7.7); Neutrophil % 72.7 % (47-70); Platelet Count 238 K/mm3 (150-450); RBC Distribution Width CV 18.5 % (11.6-14.6); RBC Distribution Width SD 62.5 fl (35.1-43.9); Red Blood Count 3.75 M/mm3 (4.6-6.2); White Blood Count 7.4 K/mm3 (4.4-11.0)
[2022-04-16 03:06] LABS: Anion Gap 7 (5-15); BUN 17 mg/dL (7-18); Calcium,Total 8.2 mg/dL (8.5-10.1); Chloride 112 mmol/L (98-107); Creatinine, Serum 2.42 mg/dL (0.70-1.30); EST Glomerular Filtration Rate 34 mL/min (>60); Est Glom Filt Rate - Afr Amer 41 mL/min (>60); Estimated Creatinine Clearance 45.04 ml/min; Glucose 88 mg/dL (74-106); Potassium 3.4 mmol/L (3.5-5.1); Sodium Level 142 mmol/L (136-145)
[2022-04-16] MEDS: 0.9% Saline Lock 10 ML Syringe IV (05:45)
[2022-04-16] MEDS: Enoxaparin 40 MG/0.4 ML Syringe SC (08:23)
[2022-04-16] MEDS: Spironolactone 25 MG Tablet PO (08:24)
[2022-04-16] MEDS: Aspirin E.C. 81 MG Tablet PO (08:24)
[2022-04-16] MEDS: Labetalol 200 MG Tablet PO ×3 (08:24→17:56)
[2022-04-16] MEDS: Pantoprazole Sodium 40 MG Tablet PO (08:25)
[2022-04-16] MEDS: Furosemide 40 MG/4 ML Vial IV ×2 (08:25→13:07)
--- NOTE | 2022-04-16 11:42 | CASEMGMT ---
Social Work SW met w/pt in room due to self pay status. Pt states he needs to follow up with [facility]. SW gave pt resources for medication assistance including [employer], Needy Meds, Prescription Hope. SW explained he cannot use the hospital's prescription assist program as he just used it last month, and pts can use this just once per year. Pt states he has been taking his meds since he left the hospital last time. SW also gave pt information again on Medicaid including the application and phone number, encouraged him to follow up. SW spoke w/pt about his mental health. Pt confirms has bipolar, is not in treatment and not on medication. Pt would like to get back on medication. Pt reports to feeling depressed. Pt denies wanting to harm himself. SW encouraged pt to follow up w/[facility] and/or [facility]. SW gave pt information on both, and gave pt a list of mental health providers in the area. SW again gently encouraged pt to follow up so that he can get back on medication. Support given. SW remains available for any additional support and resources. OKSANA Sol
--- NOTE | 2022-04-16 12:15 | CASEMGMT ---
MARGARITA DURAN Readmission Note Previous Admission:?04/01/2022-04/04/22? Diagnosis:? Hypertensive emergency DC Disposition: Home Current Admission? Current Diagnosis: Acute on chronic heart failure Pt 27-year-old male with history of poorly controlled hypertension, MS, CHF who presented with chest pressure and shortness of breath. Pt had been at nephrology appt and was sent to ER. Pt sitting up in chair on RA. Pt states he has been taking all of meds that were prescribed from last hospital stay. Pt has an upcoming appt with PCP on Monday, . ARNOLDO saw pt for resources, pt states he will be calling [facility] [employer] [facility] first thing Monday morning to sign up for Medicaid, encouraged this. ARNOLDO discussed with MARGARITA DURAN pt has not been on meds for bipolar. Pt states he has not been on them since when he ran out. Message to hospitalist who will start meds while hospitalized. Pt states he needs to get stronger, although is denying any therapy until he is approved for medicaid. Discussed CCN program, pt declines this as well. No further needs per pt. Plan: DC home.
--- NOTE | 2022-04-16 12:56 | PCM.CONS.R ---
Assessment & Plan Assessment/Plan (1) Hypertension: PLAN: His blood pressure is better, currently off nifedipine drip. 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 Patient was seen in nephrology office yesterday noted to be severely hypertensive with shortness of breath and was sent to emergency department. Patient noted to be volume overloaded blood pressure elevated with pulmonary congestion started on nicardipine drip. Nephrology is consulted for further management of volume status and CKD. On today's encounter he feels okay states that he has gained about 30 pounds. Blood pressure 130s systolic today. Currently denies chest pain, no significant shortness of breath making some urine. [facility] Medical History Bipolar 1 disorder Bleach ingestion CHF (congestive heart failure) CVA (cerebral vascular accident) Elevated d-dimer GERD (gastroesophageal reflux disease) GI bleed History of ischemic stroke Hypertension Irritable bowel syndrome (IBS) Multiple sclerosis PUD (peptic ulcer disease) Seizure disorder Suicide gesture Tobacco abuse Home Medications amlodipine 5 mg tablet 5 mg PO BID BLOOD PRESSURE 04/15/22 [History Last Taken 04/15/22] aspirin 81 mg tablet,delayed release 81 mg PO BREAKFAST HEART HEALTH 04/15/22 [History Last Taken 04/15/22] doxazosin 4 mg tablet 4 mg PO QHS BLOOD PRESSURE 04/15/22 [History Last Taken 04/14/22] furosemide 40 mg tablet 40 mg PO BIDCM FLUID 04/15/22 [History Last Taken 04/15/22] hydralazine 50 mg tablet 50 mg PO TID BLOOD PRESSURE 04/15/22 [History Last Taken 04/15/22] labetalol 200 mg tablet 200 mg PO TIDCM BLOOD PRESSURE 04/15/22 [History Last Taken 04/15/22] omeprazole 40 mg capsule,delayed release 40 mg PO DAILY ACID REFLUX 04/15/22 [History Last Taken 04/15/22] spironolactone 25 mg tablet 25 mg PO DAILY FLUID 04/15/22 [History Last Taken 04/15/22] Allergy/AdvReac Type Severity Reaction Status Date / Time No Known Allergies Allergy Verified 04/15/22 17:16 Family History Mother Diabetes Hypertension HLD (hyperlipidemia) Bipolar disorder Father Hypertension HLD (hyperlipidemia) Bipolar disorder Diabetes Surgical History H/O left knee surgery Social History household members: none Smoking Status: Current every day smoker tobacco type: e-cigarettes Smokeless tobacco user: other alcohol intake: current alcohol intake frequency: a few times a week substance use type: does not use ROS ROS Narrative 12 review of system is negative other than stated above Physical Exam Narrative Patient is alert and responsive answers questions appropriately no acute distress Normocephalic atraumatic extra muscles intact Oral mucosa is moist Neck is supple Breath sound diminished S1-S2 regular Truncal obesity, nontender on palpation Positive for edema lower extremity plus for up to bilateral thighs No focal deficit Normal mood and affect Medical Records Data Attestation: I reviewed the patient's medical records Lab / Micro Data Result Diagrams: 04/16/22 02:44 04/16/22 02:44 Labs: Laboratory Results - last 24 hr 04/15/22 17:45: WBC 7.2, RBC 4.21 L, Hgb 12.0 L, Hct 38.3 L, MCV 91.0, MCH 28.5, MCHC 31.3 L, RDW Std Deviation 60.6 H, RDW Coeff of [place] 18.3 H, Plt Count 256, MPV 11.2, Immature Gran % (Auto) 0.300, Neut % (Auto) 72.6 H, Lymph % (Auto) 11.8 L, [place] % (Auto) 9.7, Eos % (Auto) 3.8, Baso % (Auto) 1.8 H, Absolute Neuts (auto) 5.2, Absolute Lymphs (auto) 0.85, Nucleated RBC % 0 04/15/22 17:45: Sodium 140, Potassium 4.2, Chloride 110 H, Carbon Dioxide 22.0, Anion Gap 8, BUN 15, Creatinine 2.40 H, Estim Creat Clear Calc 45.41, Est GFR (MDRD) Af Amer 41 L, Est GFR (MDRD) Non-Af 34 L, BUN/Creatinine Ratio 6.2 L, Glucose 109 H, Calcium 8.3 L, Troponin I High Sens 24 04/15/22 17:45: B-Natriuretic Peptide 2293.9 H 04/15/22 20:53: Troponin I High Sens 28 04/16/22 01:00: Troponin I High Sens 30 04/16/22 02:44: WBC 7.4, RBC 3.75 L, Hgb 10.6 L, Hct 34.8 L, MCV 92.8, MCH 28.3, MCHC 30.5 L, RDW Std Deviation 62.5 H, RDW Coeff of [place] 18.5 H, Plt Count 238, MPV 10.1, Immature Gran % (Auto) 0.400, Neut % (Auto) 72.7 H, Lymph % (Auto) 11.7 L, [place] % (Auto) 10.0, Eos % (Auto) 3.7, Baso % (Auto) 1.5 H, Absolute Neuts (auto) 5.4, Absolute Lymphs (auto) 0.86, Nucleated RBC % 0 04/16/22 02:44: Sodium 142, Potassium 3.4 L, Chloride 112 H, Carbon Dioxide 23.0, Anion Gap 7, BUN 17, Creatinine 2.42 H, Estim Creat Clear Calc 45.04, Est GFR (MDRD) Af Amer 41 L, Est GFR (MDRD) Non-Af 34 L, BUN/Creatinine Ratio 7.0 L, Glucose 88, Calcium 8.2 L Micro: Microbiology 04/15/22 19:32 Nasal Secretion SARS-CoV-2 & FLU Antigen (Rapid) - Final Radiology Impression Chest X-Ray 04/15/22 18:50 IMPRESSION: Mild bibasilar infiltrate or pulmonary edema with cardiomegaly.. . Cannot exclude mild congestive failure Electronically Signed: Damir Silva MD at 19:09 EST ,
[2022-04-16] MEDS: ARIPiprazole 10 MG Tablet 60 MG PO (13:06)
[2022-04-16] MEDS: clonazePAM 1 MG Tablet PO ×2 (13:06→20:55)
[2022-04-16] MEDS: Furosemide 500 MG in Empty Viaflex 50 mL 1 EACH CONT INF (13:39)
--- NOTE | 2022-04-16 13:56 | PN.HOSP_ITS ---
Subjective Subjective Has been 100% compliant with his diet and his medications. Blood pressures are much better here. Has diuresed well so far but still edematous. No specific complaints at this time. Evidently was on previous medication for his bipolar which she is currently off of and asking if we could reinitiate that. He has n ot taking any of those medications since October or November so we will restart his Abilify at previous dose but decrease the dose of Klonopin secondary to likely decreased tolerance with lack of use recently. Objective Data Objective Data Vital Signs: Vital Signs Temp Pulse Resp BP Pulse Ox O2 Del Method O2 Flow Rate 98.2 F 95 22 H 141/43 H 95 Room Air 2 04/16/22 12:00 04/16/22 13:06 04/16/22 13:00 04/16/22 13:06 04/16/22 13:00 04/16/22 13:00 04/16/22 08:00 Oxygen Flow Rate (L/min) 2 Oxygen Delivery Method Room Air Weight: 119.9 kg Body Mass Index (BMI) 38.9 Intake & Output: Intake and Output for Last 24 Hours 04/14/22 04/15/22 04/16/22 23:59 23:59 23:59 Intake Total 772.08 / 772.08 Output Total 2100 / 2100 Balance -1327.92 / -1327.92 Lab / Micro Data Result Diagrams: 04/16/22 02:44 04/16/22 02:44 Labs: Laboratory Results - last 24 hr 04/15/22 17:45: WBC 7.2, RBC 4.21 L, Hgb 12.0 L, Hct 38.3 L, MCV 91.0, MCH 28.5, MCHC 31.3 L, RDW Std Deviation 60.6 H, RDW Coeff of [place] 18.3 H, Plt Count 256, MPV 11.2, Immature Gran % (Auto) 0.300, Neut % (Auto) 72.6 H, Lymph % (Auto) 11.8 L, [place] % (Auto) 9.7, Eos % (Auto) 3.8, Baso % (Auto) 1.8 H, Absolute Neuts (auto) 5.2, Absolute Lymphs (auto) 0.85, Nucleated RBC % 0 04/15/22 17:45: Sodium 140, Potassium 4.2, Chloride 110 H, Carbon Dioxide 22.0, Anion Gap 8, BUN 15, Creatinine 2.40 H, Estim Creat Clear Calc 45.41, Est GFR (MDRD) Af Amer 41 L, Est GFR (MDRD) Non-Af 34 L, BUN/Creatinine Ratio 6.2 L, Glucose 109 H, Calcium 8.3 L, Troponin I High Sens 24 04/15/22 17:45: B-Natriuretic Peptide 2293.9 H 04/15/22 20:53: Troponin I High Sens 28 04/16/22 01:00: Troponin I High Sens 30 04/16/22 02:44: WBC 7.4, RBC 3.75 L, Hgb 10.6 L, Hct 34.8 L, MCV 92.8, MCH 28.3, MCHC 30.5 L, RDW Std Deviation 62.5 H, RDW Coeff of [place] 18.5 H, Plt Count 238, MPV 10.1, Immature Gran % (Auto) 0.400, Neut % (Auto) 72.7 H, Lymph % (Auto) 11.7 L, [place] % (Auto) 10.0, Eos % (Auto) 3.7, Baso % (Auto) 1.5 H, Absolute Neuts (auto) 5.4, Absolute Lymphs (auto) 0.86, Nucleated RBC % 0 04/16/22 02:44: Sodium 142, Potassium 3.4 L, Chloride 112 H, Carbon Dioxide 23.0, Anion Gap 7, BUN 17, Creatinine 2.42 H, Estim Creat Clear Calc 45.04, Est GFR (MDRD) Af Amer 41 L, Est GFR (MDRD) Non-Af 34 L, BUN/Creatinine Ratio 7.0 L, Glucose 88, Calcium 8.2 L Micro: Microbiology 04/15/22 19:32 Nasal Secretion SARS-CoV-2 & FLU Antigen (Rapid) - Final Radiography Diagnostic Testing: Radiology Impression Chest X-Ray 04/15/22 18:50 IMPRESSION: Mild bibasilar infiltrate or pulmonary edema with cardiomegaly.. . Cannot exclude mild congestive failure Electronically Signed: Damir Silva MD at 19:09 EST Reading Location ID and State: [facility] / [place] , Service support , Physical Exam Const alert, oriented x3 and well nourished Constitutional Narrative: Young -[place] male, sitting up in a chair at the bedside, appears comfortable nontoxic HEENT head/scalp atraumatic, moist oral mucous membranes and oropharynx normal HEENT Narrative: Dentition is good, Mallampati is 2-3, no thrush Resp normal respiratory effort, no retractions, no use of accessory muscles and clear to auscultation bilaterally Auscultation: Negative for crackles, rales, rhonchi or wheezes Cardio regular rate, regular rhythm, S1 normal heart sound, S2 normal heart sound, no murmurs, no rub, no gallops and no clicks GI normal to inspection, nondistended, normoactive bowel sounds, soft to palpation and non-tender Extremity Extremity Narrative: Bilateral upper and lower extremity edema pitting in nature, no cyanosis or clubbing Skin Skin Narrative: Significant dry flaky skin bilateral feet Neuro oriented x3, moves all extremities and no focal motor deficits Speech: speech normal Psych affect normal Mood & Affect: anxious Assessment & Plan Assessment/Plan (1) Volume overload: (2) Heart failure due to high blood pressure: (3) Hypertensive urgency: PLAN: Plan Hypertensive emergency -Patient with bilateral lower extremity swelling, scrotal and penile swelling -Blood pressures are much improved -Continue Norvasc at increased dose 5 mg twice daily, labetalol 200 mg 3 times daily, Cardura 4 mg nightly, continue hydralazine 50 mg 3 times daily, Aldactone 25 mg daily -Wean Cardene drip -Lasix IV push twice daily increased to 3 times daily -Nephrology consulted HFpEF -Patient with recent echocardiogram on 12/06/2021 that showed an EF of 60%, moderately enlarged LA and moderate concentric LVH -Continue IV Lasix but increase frequency -Patient -1.3 L since admission -Continue strict I's and O's -Sodium restricted diet initiated -Daily weights -Stress test done on 12/18/2021 and was negative for any inducible ischemia CKD stage IIIb -Serum creatinine appears to be relatively stable -Serum creatinine on admission was 2.4 and stable today at 2.42 -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 potassium -Repeat BMP in a.m. -Check a.m. magnesium level Anasarca -See above -Improving Seizure disorder -No recent seizures -Patient is no longer Taking Keppra -Monitor GERD/reflux esophagitis -Continue PPI History of bipolar disorder -Previous suicide attempt -Patient has been off Abilify and clonazepam since October or November -Restart home Abilify at 60 mg daily -Restart Klonopin but at a lower dose 1 mg p.o. twice daily -Of he is dosing was 3 mg in the morning and 1 mg in the evening -Recommend outpatient psychiatric follow-up after discharge DVT prophylaxis -Continue enoxaparin CODE STATUS -full code Charges/Coding Visit Charges Inpatient E&M: 92973 Subs Hosp L2
[2022-04-17] VITALS (22 sets, daily range): BP systolic 125–160; BP diastolic 84–106; PULSE 85–103; RESP 12–22; TEMP 36.2–36.7; O2SAT 95–100
[2022-04-17 05:10] LABS: Absolute Lymphocyte Count 0.94 X10^3/uL (0.83-4.51); Absolute Neutrophil Count 3.6 X10^3/uL (2.0-7.7); Basophil# 0.09 X10^3/uL; Basophil% 1.6 % (0-1); Eosinophil# 0.32 X10^3/uL; Eosinophils% 5.6 % (0-5); Hematocrit 36.1 % (40-54); Hemoglobin 10.9 g/dL (13.0-16.5); Lymphocyte # 0.94 X10^3/ul (0.83-4.51); Lymphocyte % 16.4 % (19-41); Mean Corp Hgb Conc 30.2 g/dL (32-36); Mean Corpuscular Hgb 28.1 pg (27.0-32.0); Mean Platelet Vol. 9.9 fl (6.2-12.0); Monocyte# 0.82 X10^3/uL; Monocyte% 14.3 % (0-10); NRBC Flagged by Analyzer 0 % (0-5); Neutrophil # 3.55 X10^3/uL (2.7-7.7); Neutrophil % 61.8 % (47-70); Platelet Count 232 K/mm3 (150-450); RBC Distribution Width CV 18.4 % (11.6-14.6); RBC Distribution Width SD 63.1 fl (35.1-43.9); Red Blood Count 3.88 M/mm3 (4.6-6.2); White Blood Count 5.7 K/mm3 (4.4-11.0)
[2022-04-17] MEDS: hydrALAZINE 50 MG Tablet PO ×3 (05:12→20:59)
[2022-04-17] MEDS: 0.9% Saline Lock 10 ML Syringe IV (05:12)
[2022-04-17 05:25] LABS: Anion Gap 7 (5-15); BUN 18 mg/dL (7-18); Calcium,Total 8.3 mg/dL (8.5-10.1); Chloride 109 mmol/L (98-107); Creatinine, Serum 2.58 mg/dL (0.70-1.30); EST Glomerular Filtration Rate 31 mL/min (>60); Est Glom Filt Rate - Afr Amer 38 mL/min (>60); Estimated Creatinine Clearance 42.25 ml/min; Glucose 91 mg/dL (74-106); Magnesium 1.8 mg/dL (1.6-2.6); Phosphorus 3.6 mg/dL (2.5-4.9); Potassium 3.1 mmol/L (3.5-5.1); Sodium Level 141 mmol/L (136-145)
[2022-04-17] MEDS: Potassium Chloride Oral Tablet 20 MEQ 40 MEQ PO (06:19)
[2022-04-17] MEDS: Spironolactone 25 MG Tablet PO (09:16)
[2022-04-17] MEDS: Pantoprazole Sodium 40 MG Tablet PO (09:16)
[2022-04-17] MEDS: amLODIPine 5 MG Tablet PO ×2 (09:16→20:59)
[2022-04-17] MEDS: Labetalol 200 MG Tablet PO ×3 (09:16→17:59)
[2022-04-17] MEDS: Aspirin E.C. 81 MG Tablet PO (09:16)
[2022-04-17] MEDS: Enoxaparin 40 MG/0.4 ML Syringe SC (09:17)
[2022-04-17] MEDS: ARIPiprazole 10 MG Tablet 60 MG PO (09:17)
[2022-04-17] MEDS: clonazePAM 1 MG Tablet PO ×2 (09:22→20:59)
--- NOTE | 2022-04-17 11:05 | PN.HOSP_ITS ---
Subjective Subjective States he has noted his swelling is going down however not at baseline. Blood pressures overall have been better however still above goal of less than 130/80. Diuresing well and overall -5.3 L for his hospital course. Weight is down from 19.8 to 14.3 kg. Objective Data Objective Data Vital Signs: Vital Signs Temp Pulse Resp BP Pulse Ox O2 Del Method O2 Flow Rate 97.6 F L 102 H 22 H 150/106 H 100 Room Air 2 04/17/22 05:00 04/17/22 10:00 04/17/22 10:00 04/17/22 10:00 04/17/22 10:00 04/17/22 10:00 04/16/22 08:00 Oxygen Flow Rate (L/min) 2 Oxygen Delivery Method Room Air Weight: 114.305 kg Body Mass Index (BMI) 38.9 Intake & Output: Intake and Output for Last 24 Hours 04/15/22 04/16/22 04/17/22 23:59 23:59 23:59 Intake Total 1372.08 / 1372.08 240 / 240 Output Total 4200 / 4850 2750 / 2750 Balance -2827.92 / -3477.92 -2510 / -2510 Lab / Micro Data Result Diagrams: 04/17/22 05:05 04/17/22 05:05 Labs: Laboratory Results - last 24 hr 04/17/22 05:05: WBC 5.7, RBC 3.88 L, Hgb 10.9 L, Hct 36.1 L, MCV 93.0, MCH 28.1, MCHC 30.2 L, RDW Std Deviation 63.1 H, RDW Coeff of [place] 18.4 H, Plt Count 232, MPV 9.9, Immature Gran % (Auto) 0.300, Neut % (Auto) 61.8, Lymph % (Auto) 16.4 L , Ralls % (Auto) 14.3 H, Eos % (Auto) 5.6 H, Baso % (Auto) 1.6 H, Absolute Neuts (auto) 3.6, Absolute Lymphs (auto) 0.94, Nucleated RBC % 0 04/17/22 05:05: Sodium 141, Potassium 3.1 L, Chloride 109 H, Carbon Dioxide 25.0, Anion Gap 7, BUN 18, Creatinine 2.58 H, Estim Creat Clear Calc 42.25, Est GFR (MDRD) Af Amer 38 L, Est GFR (MDRD) Non-Af 31 L, BUN/Creatinine Ratio 7.0 L, Glucose 91, Calcium 8.3 L, Phosphorus 3.6, Magnesium 1.8 Micro: Microbiology 04/15/22 19:32 Nasal Secretion SARS-CoV-2 & FLU Antigen (Rapid) - Final Physical Exam Const alert, oriented x3 and well nourished Constitutional Narrative: Young -Stateless male, sitting up in a chair at the bedside, eating breakfast and watching television, appears comfortable, nontoxic HEENT head/scalp atraumatic, moist oral mucous membranes and oropharynx normal Resp normal respiratory effort, no retractions, no use of accessory muscles and clear to auscultation bilaterally Auscultation: Negative for crackles, rales, rhonchi or wheezes Cardio regular rate, regular rhythm, S1 normal heart sound, S2 normal heart sound, no murmurs, no rub, no gallops and no clicks GI normal to inspection, nondistended, normoactive bowel sounds, soft to palpation and non-tender Extremity Extremity Narrative: Bilateral upper and lower extremity edema (2+) pitting in nature--> overall improving, no cyanosis or clubbing Skin Skin Narrative: Significant dry flaky skin bilateral feet Neuro oriented x3, moves all extremities and no focal motor deficits Speech: speech normal Psych affect normal Mood & Affect: anxious Assessment & Plan Assessment/Plan (1) Volume overload: (2) Heart failure due to high blood pressure: (3) Hypertensive urgency: PLAN: Plan Hypertensive emergency -Patient with bilateral lower extremity swelling, scrotal and penile swelling -Blood pressures are much improved -Continue Norvasc at increased dose 5 mg twice daily, labetalol 200 mg 3 times daily, Cardura 4 mg nightly, continue hydralazine 50 mg 3 times daily, Aldactone 25 mg daily -Add minoxidil low-dose -Goal blood pressure is less than 130/80 -Cardene drip has been off 24 hours now -Continue IV Lasix drip -Nephrology following-appreciate input HFpEF -Patient with recent echocardiogram on 12/06/2021 that showed an EF of 60%, moderately enlarged LA and moderate concentric LVH -Continue Lasix drip -Weight down from 19.8 kg to 14.3 kg -Patient - 5.3 L since admission -Continue strict I's and O's -Sodium restricted diet initiated -Daily weights -Stress test done on 12/18/2021 and was negative for any inducible ischemia CKD stage IIIb -Serum creatinine remains to be relatively stable despite aggressive diuresis -Serum creatinine on admission was 2.4 and stable today at 2.58 -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 potassium -Repeat BMP in a.m. -Magnesium level within normal limits Anasarca -See above -Improving Seizure disorder -No recent seizures -Patient is no longer Taking Keppra -Monitor GERD/reflux esophagitis -Continue PPI History of bipolar disorder -Previous suicide attempt -Patient has been off Abilify and clonazepam since October or November -Restart home Abilify at 60 mg daily -Restart Klonopin but at a lower dose 1 mg p.o. twice daily -Of he is dosing was 3 mg in the morning and 1 mg in the evening -Recommend outpatient psychiatric follow-up after discharge DVT prophylaxis -Continue enoxaparin CODE STATUS -full code Charges/Coding Visit Charges Inpatient E&M: 66159 Subs Hosp L2
[2022-04-17] MEDS: Minoxidil 2.5 MG Tablet 5 MG PO (11:58)
[2022-04-17] MEDS: Furosemide 500 MG in Empty Viaflex 50 mL 1 EACH CONT INF (20:40)
[2022-04-17] MEDS: Doxazosin 4 MG Tablet PO (20:59)
[2022-04-18] VITALS (15 sets, daily range): BP systolic 109–140; BP diastolic 58–92; PULSE 89–100; RESP 16–18; TEMP 36.4–37.1; O2SAT 95–98
[2022-04-18] MEDS: hydrALAZINE 50 MG Tablet PO ×3 (05:31→23:15)
[2022-04-18 07:04] LABS: Anion Gap 7 (5-15); BUN 21 mg/dL (7-18); BUN/Creat Ratio 7.3 RATIO (10-20); Calcium,Total 8.6 mg/dL (8.5-10.1); Chloride 108 mmol/L (98-107); Creatinine, Serum 2.88 mg/dL (0.70-1.30); EST Glomerular Filtration Rate 28 mL/min (>60); Est Glom Filt Rate - Afr Amer 34 mL/min (>60); Estimated Creatinine Clearance 37.85 ml/min; Glucose 82 mg/dL (74-106); Magnesium 1.5 mg/dL (1.6-2.6); Potassium 3.4 mmol/L (3.5-5.1); Sodium Level 142 mmol/L (136-145)
[2022-04-18] MEDS: Labetalol 200 MG Tablet PO ×3 (08:37→18:10)
[2022-04-18] MEDS: Aspirin E.C. 81 MG Tablet PO (08:37)
[2022-04-18] MEDS: Potassium Chloride Oral Tablet 20 MEQ 40 MEQ PO ×2 (08:37→13:08)
--- NOTE | 2022-04-18 08:46 | DCINST_ITS ---
Discharge Instructions Follow Up Care Test Results: Test results from this visit will be discussed in further detail at your follow- up appointment, if applicable. Discharge Plan Admission Admit Date/Time: 04/15/22 21:26 Attending Provider: Robin Joya Primary Care Provider: Luis Physician,No Primary Consulting Providers: Stephon Guevara ; Alysha Rico ; Veena Anderson Discharge Orders/Prescriptions Prescriptions: No Action furosemide 40 mg tablet 40 mg PO BIDCM labetalol 200 mg tablet 200 mg PO TIDCM amlodipine 5 mg tablet 5 mg PO BID omeprazole 40 mg capsule,delayed release(DR/EC) 40 mg PO DAILY aspirin 81 mg tablet,delayed release (DR/EC) 81 mg PO BREAKFAST spironolactone 25 mg tablet 25 mg PO DAILY doxazosin 4 mg tablet 4 mg PO QHS hydralazine 50 mg tablet 50 mg PO TID Referrals / Follow Up: Care Physician,No Primary [Primary Care Provider] -
[2022-04-18] MEDS: clonazePAM 1 MG Tablet PO ×2 (10:07→23:21)
[2022-04-18] MEDS: Spironolactone 25 MG Tablet PO (10:08)
[2022-04-18] MEDS: Minoxidil 2.5 MG Tablet 5 MG PO (10:08)
[2022-04-18] MEDS: amLODIPine 5 MG Tablet PO ×2 (10:08→23:15)
[2022-04-18] MEDS: Pantoprazole Sodium 40 MG Tablet PO (10:08)
[2022-04-18] MEDS: Enoxaparin 40 MG/0.4 ML Syringe SC (10:10)
[2022-04-18] MEDS: ARIPiprazole 10 MG Tablet 60 MG PO (10:10)
--- NOTE | 2022-04-18 11:55 | PN.RENAL_ITS ---
Subjective Subjective Sitting in chair, reports feeling better overall. Denies any shortness of breath. No overnight events. States appetite is good. Objective Data Objective Data Vital Signs: Vital Signs Temp Pulse Resp BP Pulse Ox O2 Del Method O2 Flow Rate 97.6 F L 99 18 140/92 H 98 Room Air 2 04/18/22 08:30 04/18/22 10:07 04/18/22 08:30 04/18/22 10:07 04/18/22 08:30 04/18/22 08:41 04/16/22 08:00 Oxygen Flow Rate (L/min) 2 Oxygen Delivery Method Room Air Weight: 114.305 kg Body Mass Index (BMI) 38.9 Intake & Output: Intake and Output for Last 24 Hours 04/16/22 04/17/22 04/18/22 23:59 23:59 23:59 Intake Total 1372.08 / 1372.08 511.02 / 511.02 240 / 240 Output Total 4200 / 4850 6500 / 6500 2200 / 2200 Balance -2827.92 / -3477.92 -5988.98 / -5988.98 -1960 / -1960 Lab / Micro Data Result Diagrams: 04/17/22 05:05 04/18/22 05:40 Labs: Laboratory Results - last 24 hr 04/18/22 05:40: Sodium 142, Potassium 3.4 L, Chloride 108 H, Carbon Dioxide 27 .0, Anion Gap 7, BUN 21 H, Creatinine 2.88 H, Estim Creat Clear Calc 37.85, Est GFR (MDRD) Af Amer 34 L, Est GFR (MDRD) Non-Af 28 L, BUN/Creatinine Ratio 7.3 L, Glucose 82, Calcium 8.6, Magnesium 1.5 L Micro: Microbiology 04/15/22 19:32 Nasal Secretion SARS-CoV-2 & FLU Antigen (Rapid) - Final Physical Exam Narrative Patient is alert and responsive answers questions appropriately no acute distress Breath sound diminished, no rhonchi or rales S1-S2, rhythm and rate regular Abdomen soft, nontender, positive bowel sounds 2-3+ pitting edema bilateral lower legs and up into thighs. 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 Difficult to determine true baseline serum creatinine as patient has been significantly hypervolemic with uncontrolled hypertension therefore has fluctuating serum creatinine levels. Since July 2021 there seems to have been some progression of CKD. Possible baseline serum creatinine ranging around 2.5 to 3 mg/dL. Monitor daily BMP while aggressively being diuresed At this time there is no acute indication for FIELD IDENTIFICATION SPECIALIST. on lasix gtt, patient is net -10 L since admission. Last weight 114 kg. Patient feels baseline weight is around 109 kg (240 pounds). Discussed with Dr. Joya. We will continue on Lasix drip for another day and likely transition to intermittent IV Lasix tomorrow. Blood pressures have improved currently on amlodipine 5 mg twice daily, Cardura 4 mg at bedtime, hydralazine 50 mg 3 times daily, labetalol 200 mg 3 times daily, Aldactone 25 mg daily, minoxidil 5 mg daily, Lasix drip Potassium 3.4, improved, replacement ordered Reviewed with patient today importance of compliancy with blood pressure medications and diuretics so to try and slow progression of CKD Continue on fluid restriction and reviewed with patient the importance of maintaining fluid restriction once at home.
--- NOTE | 2022-04-18 17:33 | PN.HOSP_ITS ---
Subjective Subjective Follow-up for bilateral lower extremity swelling, abdominal swelling. Patient on Lasix drip Objective Data Objective Data Vital Signs: Vital Signs Temp Pulse Resp BP Pulse Ox O2 Del Method O2 Flow Rate 98.8 F 89 16 128/84 H 98 Room Air 2 04/18/22 13:06 04/18/22 15:00 04/18/22 13:06 04/18/22 13:06 04/18/22 13:06 04/18/22 13:06 04/16/22 08:00 Oxygen Flow Rate (L/min) 2 Oxygen Delivery Method Room Air Weight: 252 lb Body Mass Index (BMI) 38.9 Intake & Output: Intake and Output for Last 24 Hours 04/16/22 04/17/22 04/18/22 23:59 23:59 23:59 Intake Total 1372.08 / 1372.08 511.02 / 511.02 930 / 930 Output Total 4200 / 4850 6500 / 6500 4275 / 4275 Balance -2827.92 / -3477.92 -5988.98 / -5988.98 -3345 / -3345 Lab / Micro Data Result Diagrams: 04/17/22 05:05 04/18/22 05:40 Labs: Laboratory Results - last 24 hr 04/18/22 05:40: Sodium 142, Potassium 3.4 L, Chloride 108 H, Carbon Dioxide 27.0, Anion Gap 7, BUN 21 H, Creatinine 2.88 H, Estim Creat Clear Calc 37.85, Est GFR (MDRD) Af Amer 34 L, Est GFR (MDRD) Non-Af 28 L, BUN/Creatinine Ratio 7.3 L, Glucose 82, Calcium 8.6, Magnesium 1.5 L Micro: Microbiology 04/15/22 19:32 Nasal Secretion SARS-CoV-2 & FLU Antigen (Rapid) - Final Physical Exam Narrative Seen and examined. Patient had a stroke in July 2021. Since then he had mild right-sided loss of visual acuity. BP is controlled. Sinus rhythm. Physical exam General: Alert, Oriented x3, Cooperative HEENT: Right-sided visual field loss, from previous stroke. Atraumatic, PERRLA, Normocephalic Oral: No Gingival or Mucosal Lesions/ Ulcerations Neck: Supple, No JVD, Negative Carotid Bruits Lungs: Air entry diminished in bilateral lung bases. Bibasilar crepitations Cardiovascular: Regular rate, Regular Rhythm, Normal S1, Normal S2, No murmurs Abdomen: Bowel Sounds Present, Soft, Non Tender, mild to moderate abdominal distention, ascites : No renal angle tenderness. No suprapubic tenderness. Extremities: Pitting edema above knee level,, upper extremity, Capillary Refill Less than 3 Seconds Skin: No rashes, No breakdown Musculoskeletal: No Tenderness to Palpation of Joints or Extremities Neurological: Mild flattening of right nasolabial fold, chronic Psych/Mental Status: Flat affect Assessment & Plan Assessment/Plan (1) Volume overload: (2) Heart failure due to high blood pressure: (3) Hypertensive urgency: PLAN: Plan Hypertensive emergency -Patient with bilateral lower extremity swelling, scrotal and penile swelling -Blood pressures are much improved -Continue Norvasc at increased dose 5 mg twice daily, labetalol 200 mg 3 times daily, Cardura 4 mg nightly, continue hydralazine 50 mg 3 times daily, Aldactone 25 mg daily On minoxidil low-dose -Goal blood pressure is less than 130/80. Cardene drip has been discontinued -Continue IV Lasix drip -Discussed with community health worker and want to continue Lasix drip today HFpEF -Patient with recent echocardiogram on 12/06/2021 that showed an EF of 60%, moderately enlarged LA and moderate concentric LVH -Continue Lasix drip Patient lost weight from 273 pound to 252 pounds. Lost about 21 pounds -Patient - 5.3 L since admission -Continue strict I's and O's -Sodium restricted diet initiated -Daily weights -Stress test done on 12/18/2021 and was negative for any inducible ischemia CKD stage IIIb -Serum creatinine remains to be relatively stable despite aggressive diuresis -Serum creatinine on admission was 2.4 to 2.88. BUN 21. Bicarb 27. 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 potassium Magnesium is getting replaced. Patient also on spironolactone. Anasarca -See above -Improving Seizure disorder -No recent seizures -Patient is no longer Taking Keppra -Monitor GERD/reflux esophagitis -Continue PPI History of bipolar disorder -Previous suicide attempt -Patient has been off Abilify and clonazepam since October or November -Restart home Abilify at 60 mg daily -Restart Klonopin but at a lower dose 1 mg p.o. twice daily -Of he is dosing was 3 mg in the morning and 1 mg in the evening -Recommend outpatient psychiatric follow-up after discharge DVT prophylaxis -Continue enoxaparin CODE STATUS -full code Total time of the visit including total time spent in counseling or coordination of care, (more than 50% of the total time, spent in obtaining medical information from nurses and other ancillary care providers,explaining to the patient about labs, imaging, diagnosis and management of active complex medical conditions), discussion with community health worker, review of labs and imaging is 40 minutes. Charges/Coding Visit Charges Inpatient E&M: 54274 Subs Hosp L3
[2022-04-18] MEDS: Doxazosin 4 MG Tablet PO (23:15)
[2022-04-19] VITALS (13 sets, daily range): BP systolic 111–133; BP diastolic 73–86; PULSE 83–94; RESP 18–20; TEMP 36.2–36.9; O2SAT 94–98
[2022-04-19] MEDS: hydrALAZINE 50 MG Tablet PO ×3 (05:12→22:33)
[2022-04-19 06:38] LABS: Anion Gap 7 (5-15); BUN 26 mg/dL (7-18); BUN/Creat Ratio 8.2 RATIO (10-20); Calcium,Total 8.4 mg/dL (8.5-10.1); Chloride 107 mmol/L (98-107); Creatinine, Serum 3.18 mg/dL (0.70-1.30); EST Glomerular Filtration Rate 25 mL/min (>60); Est Glom Filt Rate - Afr Amer 30 mL/min (>60); Estimated Creatinine Clearance 34.28 ml/min; Glucose 84 mg/dL (74-106); Potassium 3.6 mmol/L (3.5-5.1); Sodium Level 141 mmol/L (136-145)
--- NOTE | 2022-04-19 08:17 | PN.HOSP_ITS ---
Subjective Subjective Follow-up for acute kidney injury and acute on chronic HFpEF Patient creatinine went up therefore Lasix drip on hold. Patient overall feels improvement in leg swelling abdominal swelling and shortness of breath. Objective Data Objective Data Vital Signs: Vital Signs Temp Pulse Resp BP Pulse Ox O2 Del Method O2 Flow Rate 98.5 F 88 18 123/78 H 94 Room Air 2 04/19/22 05:00 04/19/22 07:03 04/19/22 05:00 04/19/22 05:12 04/19/22 06:50 04/19/22 06:50 04/16/22 08:00 Oxygen Flow Rate (L/min) 2 Oxygen Delivery Method Room Air Weight: 250 lb 7.122 oz Body Mass Index (BMI) 38.9 Intake & Output: Intake and Output for Last 24 Hours 04/17/22 04/18/22 04/19/22 23:59 23:59 23:59 Intake Total 511.02 / 511.02 1626.43 / 1626.43 544 / 544 Output Total 6500 / 6500 7450 / 7450 600 / 600 Balance -5988.98 / -5988.98 -5823.57 / -5823.57 -56 / -56 Lab / Micro Data Result Diagrams: 04/17/22 05:05 04/19/22 04:22 Labs: Laboratory Results - last 24 hr 04/19/22 04:22: Sodium 141, Potassium 3.6, Chloride 107, Carbon Dioxide 27.0, Anion Gap 7, BUN 26 H, Creatinine 3.18 H, Estim Creat Clear Calc 34.28, Est GFR (MDRD) Af Amer 30 L, Est GFR (MDRD) Non-Af 25 L, BUN/Creatinine Ratio 8.2 L, Glucose 84, Calcium 8.4 L, Magnesium 2.0 Micro: Microbiology 04/15/22 19:32 Nasal Secretion SARS-CoV-2 & FLU Antigen (Rapid) - Final Physical Exam Narrative Seen and examined. P BP is controlled. Sinus rhythm. Physical exam General: Alert, Oriented x3, Cooperative HEENT: Right-sided visual field loss, from previous stroke. Atraumatic, PERRLA, Normocephalic Oral: No Gingival or Mucosal Lesions/ Ulcerations Neck: Supple, No JVD, Negative Carotid Bruits Lungs: Air entry diminished in bilateral lung bases. Bibasilar crepitations Cardiovascular: Regular rate, Regular Rhythm, Normal S1, Normal S2, No murmurs Abdomen: Bowel Sounds Present, Soft, Non Tender, mild ascites : No renal angle tenderness. No suprapubic tenderness. Extremities: Improvement over lower extremity and upper extremity edema and ascites capillary Refill Less than 3 Seconds Skin: No rashes, No breakdown Musculoskeletal: No Tenderness to Palpation of Joints or Extremities Neurological: Mild flattening of right nasolabial fold, chronic Psych/Mental Status: Flat affect Assessment & Plan Assessment/Plan (1) Volume overload: (2) Heart failure due to high blood pressure: (3) Hypertensive urgency: PLAN: Plan Hypertensive emergency -Patient with bilateral lower extremity swelling, scrotal and penile swelling -Blood pressures are much improved -Continue Norvasc at increased dose 5 mg twice daily, labetalol 200 mg 3 times daily, Cardura 4 mg nightly, continue hydralazine 50 mg 3 times daily, Aldactone 25 mg daily On minoxidil low-dose -Goal blood pressure is less than 130/80. Cardene drip has been discontinued 04/18-Discussed with machine strap buckler and want to continue Lasix drip today 04/19: Lasix drip discontinued. Monitor kidney function. Acute on chronic HFpEF present since admission -Patient with recent echocardiogram on 12/06/2021 that showed an EF of 60%, moderately enlarged LA and moderate concentric LVH -Continue Lasix drip Patient lost weight from 273 pound to 252 pounds. Lost about 21 pounds -Patient - 5.3 L since admission -Continue strict I's and O's -Sodium restricted diet initiated -Daily weights -Stress test done on 12/18/2021 and was negative for any inducible ischemia 04/19: Improvement in shortness of breath, leg swelling and ascites. CKD stage IIIb -Serum creatinine remains to be relatively stable despite aggressive diuresis -Serum creatinine on admission was 2.4 to 2.88. BUN 21. Bicarb 27. 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 Lasix drip on hold. Discussed with the machine strap buckler. Monitor kidney function. Magnesium 2.0. Hypokalemia and hypomagnesiA -40 mill colons p.o. potassium Magnesium is getting replaced. Patient also on spironolactone. 04/19: Hypomagnesemia resolved. Anasarca -See above -Improving Seizure disorder -No recent seizures -Patient is no longer Taking Keppra -Monitor The patient had stroke in July 2021. Since then he had mild right-sided loss of visual acuity. GERD/reflux esophagitis -Continue PPI History of bipolar disorder -Previous suicide attempt -Patient has been off Abilify and clonazepam since October or November -Restart home Abilify at 60 mg daily -Restart Klonopin but at a lower dose 1 mg p.o. twice daily -Of he is dosing was 3 mg in the morning and 1 mg in the evening -Recommend outpatient psychiatric follow-up after discharge DVT prophylaxis -Continue enoxaparin CODE STATUS -full code Total time of the visit including total time spent in counseling or coordination of care, (more than 50% of the total time, spent in obtaining medical information from nurses and other ancillary care providers,explaining to the patient about labs, imaging, diagnosis and management of active complex medical conditions), discussion with machine strap buckler, review of labs and imaging is 40 minutes. Clinical Impression(s) from Imaging Studies Chest X-Ray 04/15/22 18:50 IMPRESSION: Mild bibasilar infiltrate or pulmonary edema with cardiomegaly.. . Cannot exclude mild congestive failure Charges/Coding Visit Charges Inpatient E&M: 64827 Subs Hosp L3
[2022-04-19] MEDS: clonazePAM 1 MG Tablet PO ×2 (08:47→22:32)
[2022-04-19] MEDS: Minoxidil 2.5 MG Tablet 5 MG PO (08:49)
[2022-04-19] MEDS: Labetalol 200 MG Tablet PO ×3 (08:49→16:31)
[2022-04-19] MEDS: Aspirin E.C. 81 MG Tablet PO (08:49)
[2022-04-19] MEDS: amLODIPine 5 MG Tablet PO ×2 (08:49→22:34)
[2022-04-19] MEDS: Pantoprazole Sodium 40 MG Tablet PO (08:49)
[2022-04-19] MEDS: ARIPiprazole 10 MG Tablet 60 MG PO (08:49)
[2022-04-19] MEDS: Spironolactone 25 MG Tablet 50 MG PO (08:50)
--- NOTE | 2022-04-19 09:37 | PN.RENAL_ITS ---
Subjective Subjective Following for JULIANNA on CKD and volume management. The patient reports fatigue. Overall, he is feeling better than on admission. There is less edema of the lower extremities. He denies chest pain, shortness of breath, or nausea. Objective Data Objective Data Vital Signs: Vital Signs Temp Pulse Resp BP Pulse Ox O2 Del Method O2 Flow Rate 98.5 F 88 18 123/78 H 94 Room Air 2 04/19/22 05:00 04/19/22 07:03 04/19/22 05:00 04/19/22 05:12 04/19/22 06:50 04/19/22 06:50 04/16/22 08:00 Oxygen Flow Rate (L/min) 2 Oxygen Delivery Method Room Air Weight: 113.6 kg Body Mass Index (BMI) 38.9 Intake & Output: Intake and Output for Last 24 Hours 04/17/22 04/18/22 04/19/22 23:59 23:59 23:59 Intake Total 511.02 / 511.02 1626.43 / 1626.43 547.95 / 547.95 Output Total 6500 / 6500 7450 / 7450 600 / 600 Balance -5988.98 / -5988.98 -5823.57 / -5823.57 -52.05 / -52.05 Lab / Micro Data Result Diagrams: 04/17/22 05:05 04/19/22 04:22 Labs: Laboratory Results - last 24 hr 04/19/22 04:22: Sodium 141, Potassium 3.6, Chloride 107, Carbon Dioxide 27.0, Anion Gap 7, BUN 26 H, Creatinine 3.18 H, Estim Creat Clear Calc 34.28, Est GFR (MDRD) Af Amer 30 L, Est GFR (MDRD) Non-Af 25 L, BUN/Creatinine Ratio 8.2 L, Glucose 84, Calcium 8.4 L, Magnesium 2.0 Micro: Microbiology 04/15/22 19:32 Nasal Secretion SARS-CoV-2 & FLU Antigen (Rapid) - Final Physical Exam Narrative Patient is alert and responsive answers questions appropriately no acute distress Breath sound diminished, no rhonchi or rales S1-S2, rhythm and rate regular Abdomen soft, nontender, positive bowel sounds 2+ pitting edema bilateral lower legs. Legs are wrapped in [place]. Assessment & Plan Assessment/Plan (1) Chronic kidney disease (CKD) stage G4/A3, severely decreased glomerular f iltration rate (GFR) between 15-29 mL/min/1.73 square meter and albuminuria creatinine ratio greater than 300 mg/g: (2) Hypertension: (3) Volume overload: PLAN: Plan Impression/Plan: The patient is a 27-year-old man with past history of chronic kidney disease stage G4/A3 secondary to arterionephrosclerosis (biopsy-proven), hypertension, and bipolar disorder. The patient was admitted to the hospital on 04/15/2022 after being sent from our office where he was found to be severely hypertensive and volume overloaded. Nephrology is following for CKD and volume management. Chronic kidney disease stage G4/A3 secondary to nephrosclerosis. The patient has arterionephrosclerosis which was biopsy-proven. He was admitted on 04/15/2022 with severe hypertension and volume overload. This is secondary to CKD and nonadherence to medications and dietary/fluid restriction. Current serum creatinine 3.2 to 3.5 mg/dL may be his true baseline. Lower serum creatinine on presentation may have been due to volume overload. There is no urgent need for kidney replacement therapy although he will need close follow-up in the office once he is discharged. Volume overload. This is secondary to dietary sodium and fluid indiscretion in the setting of advanced chronic kidney disease. Again, the importance of volume restriction and sodium restriction was reemphasized. The patient has responded well to diuresis and has lost 10.3 kg since admission. Agree with stopping furosemide drip. Okay from nephrology standpoint to transition the patient to oral diuretic in preparation for discharge. Above discussed with Dr. Joya. We will hold diuretic today and start the patient on either IV or oral loop diuretic tomorrow. I will check serum albumin tomorrow. If albumin is 3.0 g/dL or less, he may benefit from bumetanide for better bioavailability rather than furosemide if we are converting him to oral loop diuretic. Hypertension. BP is much better controlled with medications and diuresis. Continue amlodipine at 5 mg twice a day, doxazosin 4 mg nightly, hydralazine 50 mg 3 times daily, labetalol 2 mg 3 times daily, spironolactone 50 mg daily, and minoxidil 5 mg daily. Reemphasized the importance of medication adherence and volume and sodium restriction. Hypokalemia. Secondary to diuresis and hypomagnesemia. Potassium level is better today at 3.6 mmol/L. Continue to replete potassium and magnesium deficits as we are diuresing the patient. Continue to monitor serum potassium and magnesium levels. Hypomagnesemia. Secondary to diuresis. Magnesium level was 1.5 mg/dL on 04/18/2022. Magnesium level is better today at 2.0 mg/dL with repletion. Continue to monitor serum potassium and magnesium level as we are diuresing the patient. Nephrology plan discussed with Dr. Joya.
--- NOTE | 2022-04-19 11:37 | CASEMGMT ---
-Complex Third Steel Pourer to room to speak with pt. Per previous notes, pt is not linked with PCP and does not have Medicaid. Pt stated he was to see Dr. Linn Johnson today but called the office to inform of inpatient. Pt will call at [place]. Pt stated he called [facility]. Per pt, his Medicaid is active for April. They are looking into making the benefits retroactive. Per pt's medical hx in [facility], pt has MS. Pt denied this. Pt stated he has been told hx shows MS and DM. Pt denied being diagnosed with either. Pt denied needing any HHC including therapy. Pt stated when his swelling goes down, he has no issues getting around his apt. Pt is on leave from work. 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 Pt stated he is doing better after getting medication for his MH. Pt has resources for MH and stated it will be easier to maintain appts and medication with active Medicaid. Pt denied any current needs. Navigator provided phone contact. Pt in agreement for Navigator to f/u after [place]. Pt's phone contact verified.
[2022-04-19] MEDS: Doxazosin 4 MG Tablet PO (22:33)
[2022-04-20] VITALS (7 sets, daily range): BP systolic 129–148; BP diastolic 64–98; PULSE 85–99; RESP 18; TEMP 36.4–36.9; O2SAT 95–99
[2022-04-20 06:03] LABS: Albumin, Serum 2.1 g/dL (3.2-5.0); BUN 28 mg/dL (7-18); BUN/Creat Ratio 8.8 RATIO (10-20); Calcium,Total 8.5 mg/dL (8.5-10.1); Chloride 107 mmol/L (98-107); Creatinine, Serum 3.17 mg/dL (0.70-1.30); EST Glomerular Filtration Rate 25 mL/min (>60); Est Glom Filt Rate - Afr Amer 30 mL/min (>60); Estimated Creatinine Clearance 34.38 ml/min; Glucose 96 mg/dL (74-106); Magnesium 1.9 mg/dL (1.6-2.6); Phosphorus 4.2 mg/dL (2.5-4.9); Potassium 3.9 mmol/L (3.5-5.1); Sodium Level 140 mmol/L (136-145)
[2022-04-20] MEDS: hydrALAZINE 50 MG Tablet PO (06:05)
[2022-04-20] MEDS: Enoxaparin 40 MG/0.4 ML Syringe SC (09:24)
[2022-04-20] MEDS: 0.9% Saline Lock 10 ML Syringe IV (09:24)
[2022-04-20] MEDS: Pantoprazole Sodium 40 MG Tablet PO (09:24)
[2022-04-20] MEDS: clonazePAM 1 MG Tablet PO (09:24)
[2022-04-20] MEDS: Spironolactone 25 MG Tablet 50 MG PO (09:24)
[2022-04-20] MEDS: Minoxidil 2.5 MG Tablet 5 MG PO (09:24)
[2022-04-20] MEDS: Furosemide 100 MG/10 ML Vial 60 MG IV (09:24)
[2022-04-20] MEDS: amLODIPine 5 MG Tablet PO (09:24)
[2022-04-20] MEDS: Aspirin E.C. 81 MG Tablet PO (09:25)
[2022-04-20] MEDS: Labetalol 200 MG Tablet PO ×2 (09:25→11:22)
[2022-04-20] MEDS: ARIPiprazole 10 MG Tablet 60 MG PO (09:25)
--- NOTE | 2022-04-20 09:43 | PCM.PN.REN ---
Subjective Subjective Sitting in chair. Reports feeling much better. Reports swelling improved. No complaints. Objective Data Objective Data Vital Signs: Vital Signs Temp Pulse Resp BP Pulse Ox O2 Del Method O2 Flow Rate 97.5 F L 92 18 148/98 H 99 Room Air 2 04/20/22 06:02 04/20/22 07:03 04/20/22 06:02 04/20/22 06:05 04/20/22 06:02 04/20/22 06:02 04/16/22 08:00 Oxygen Flow Rate (L/min) 2 Oxygen Delivery Method Room Air Weight: 102.4 kg Body Mass Index (BMI) 38.9 Intake & Output: Intake and Output for Last 24 Hours 04/18/22 04/19/22 04/20/22 23:59 23:59 23:59 Intake Total 1626.43 / 1626.43 1197.95 / 1437.95 240 / 240 Output Total 7450 / 7450 600 / 600 Balance -5823.57 / -5823.57 597.95 / 837.95 240 / 240 Lab / Micro Data Result Diagrams: 04/17/22 05:05 04/20/22 05:17 Labs: Laboratory Results - last 24 hr 04/20/22 05:17: Sodium 140, Potassium 3.9, Chloride 107, Carbon Dioxide 27.0, BUN 28 H, Creatinine 3.17 H, Estim Creat Clear Calc 34.38, Est GFR (MDRD) Af Amer 30 L, Est GFR (MDRD) Non-Af 25 L, BUN/Creatinine Ratio 8.8 L, Glucose 96, Calcium 8.5, Phosphorus 4.2, Magnesium 1.9, Albumin 2.1 L Micro: Microbiology 04/15/22 19:32 Nasal Secretion SARS-CoV-2 & FLU Antigen (Rapid) - Final Physical Exam Narrative Patient is alert and responsive answers questions appropriately no acute distress Breath sound clear, no rhonchi or rales S1-S2, rhythm and rate regular Abdomen soft, nontender, positive bowel sounds 1-2+ pitting edema bilateral lower legs. 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 Lower serum creatinine on presentation may have been due to volume overload. SCr 2.4mg/dL on admission--> SCr 3.18mg/dL yesterday--> SCr 3.17mg/dL today - volume status much improved on lasix gtt. Lasix stopped yesterday. Per I&O net negative 13L. Will give 60mg IV lasix this morning. Weight today 102.4kg (225lbs). Reviewed with patient possible dry weight more near 215-220lbs. - albumin 2.1 therefore for home diuretic regimen we will stop lasix and start bumex 2mg bid. Continue spironolactone 50mg daily. - BP is much better controlled with medications and diuresis. Continue amlodipine at 5 mg twice a day, doxazosin 4 mg nightly, hydralazine 50 mg 3 times daily, labetalol 2 mg 3 times daily, and minoxidil 5 mg daily as well as diuretics bumex and aldactone. - probable discharge to home today. Emphasized with patient importance of medication compliance, maintaining fluid restriction of no more than 1.5L/day and low sodium diet. Encouraged daily weights - will arrange for hospital follow-up. Ok for discharge per renal standpoint. - Nephrology plan discussed with Dr. Joya.
--- NOTE | 2022-04-20 10:13 | DCINST_ITS ---
Discharge Instructions Diet Discharge Diet: Low fat / Low cholesterol and 2000 mg Sodium Diet Activity Discharge Activity: Return to Normal Activity Dressing / Incision Call your doctor if you observe: Fever of 101 or Higher, Coldness, Increased Pain, Numbness or Tingling, Change in Color, Inability to urinate, Inability to have a bowel movement, Shortness of breath, Dizziness, Fainting spells, Swelling in the ankles, Chest pain, Prolonged hiccupping, Increased palpitations (irregular heartbeat), Calf discomfort and Uncontrolled pain Follow Up Care Test Results: Test results from this visit will be discussed in further detail at your follow- up appointment, if applicable. Discharge Plan Admission Admit Date/Time: 04/15/22 21:26 Primary Reason for Your Visit: Hypertensive emergency, CKD stage IV. Attending Provider: Robin Joya Primary Care Provider: Luis Sadler,Aleena Primary Consulting Providers: Stephon Guevara ; Alysha Rico ; Veena Anderson Discharge Orders/Prescriptions Prescriptions: New sennosides-docusate sodium [Stool Softener-Stimulant Laxat] 8.6-50 mg Tablet 2 tab PO BID PRN PRN (Reason: Constipation) Qty: 0 0RF minoxidil 2.5 mg Tablet 5 mg PO DAILY Qty: 30 1RF spironolactone 25 mg Tablet 50 mg PO DAILY Qty: 30 2RF aripiprazole 10 mg Tablet 60 mg PO DAILY Qty: 30 0RF bumetanide 2 mg tablet 2 mg PO BID Qty: 60 2RF Continued doxazosin 4 mg tablet 4 mg PO QHS labetalol 200 mg tablet 200 mg PO TIDCM Qty: 90 2RF amlodipine 5 mg tablet 5 mg PO BID Qty: 60 2RF omeprazole 40 mg capsule,delayed release(DR/EC) 40 mg PO DAILY Qty: 30 2RF aspirin 81 mg tablet,delayed release (DR/EC) 81 mg PO BREAKFAST Qty: 30 2RF hydralazine 50 mg tablet 50 mg PO TID Qty: 30 2RF Discontinued furosemide 40 mg tablet 40 mg PO BIDCM spironolactone 25 mg tablet 25 mg PO DAILY Referrals / Follow Up: Care Physician,No Primary [Primary Care Provider] - Alysha Rico MD [Med Staff - Consulting] - Within 2 Weeks Disposition Disposition (needs filled in before D/C Order can be placed): Home, Self Care
--- NOTE | 2022-04-20 11:52 | DS.PCM_ITS ---
Providers Date of Admission: 04/15/22 Date of Discharge: 04/20/22 Primary Care Physician: Aleena Primary Care Phys Consultations 04/16/22 07:14 Consult: Nephrology Routine Consulting Provider: Alysha Rico Reason for Consult: CKD/HTN Emergency EMERGENT Consult: No MD Notified: Yes Date Notified: 04/16/22 Time Notified: 09:59 Method of Notification: Answering Service Reason For Visit: ACUTE CHRONIC HEART FAILURE, HYPERTENSIVE EMERGENC Diagnosis Discharge Diagnosis (1) Chronic kidney disease (CKD) stage G4/A3, severely decreased glomerular filtration rate (GFR) between 15-29 mL/min/1.73 square meter and albuminuria creatinine ratio greater than 300 mg/g: Status: Acute Code(s): N18.4 - Chronic kidney disease, stage 4 (severe) (2) Hypertension: Status: Chronic Code(s): I10 - Essential (primary) hypertension (3) Volume overload: Status: Acute Code(s): E87.70 - Fluid overload, unspecified Medications at Discharge Home Medications doxazosin 4 mg tablet 4 mg PO QHS BLOOD PRESSURE 04/15/22 amlodipine 5 mg tablet 5 mg PO BID BLOOD PRESSURE #60 tabs 04/20/22 aripiprazole 10 mg tablet 60 mg PO DAILY #30 tabs 04/20/22 aspirin 81 mg tablet,delayed release 81 mg PO BREAKFAST HEART HEALTH #30 tabs 04/20/22 bumetanide 2 mg tablet 2 mg PO BID #60 tabs 04/20/22 hydralazine 50 mg tablet 50 mg PO TID BLOOD PRESSURE #30 tabs 04/20/22 labetalol 200 mg tablet 200 mg PO TIDCM BLOOD PRESSURE #90 tabs 04/20/22 minoxidil 2.5 mg tablet 5 mg PO DAILY #30 tabs 04/20/22 omeprazole 40 mg capsule,delayed release 40 mg PO DAILY ACID REFLUX #30 caps 04/20/22 sennosides 8.6 mg-docusate sodium 50 mg tablet (Stool Softener-Stimulant Laxative) 2 tab PO BID PRN PRN Constipation #0 tabs 04/20/22 spironolactone 25 mg tablet 50 mg PO DAILY #30 tabs 04/20/22 Hospital Course Summary of Care Provided Hospital Course: 27-year-old Afro-[place]ian gentleman was admitted with bilateral lower extremity swelling, ascites and blood pressure very high, 239/148, tachycardia heart rate 123/min, tachypnea RR 25/min along with shortness of breath and chest pain. He was admitted with diagnosis of hypertensive emergency. 1. Hypertensive emergency: The patient was admitted in ICU on nicardipine drip. Gradually the drip was tapered off and discontinued transferred to PCU. -Patient with bilateral lower extremity swelling, scrotal and penile swelling -Blood pressures are much improved -Continue Norvasc at increased dose 5 mg twice daily, labetalol 200 mg 3 times daily, Cardura 4 mg nightly, continue hydralazine 50 mg 3 times daily, Aldactone 25 mg daily On minoxidil low-dose -Goal blood pressure is less than 130/80. 04/18-Discussed with expressive music therapist and want to continue Lasix drip today 04/19: Lasix drip discontinued. Monitor kidney function. Acute on chronic HFpEF present since admission -Patient with recent echocardiogram on 12/06/2021 that showed an EF of 60%, moderately enlarged LA and moderate concentric LVH -Continue Lasix drip Patient lost weight from 273 pound to 252 pounds. Lost about 21 pounds -Patient - 5.3 L since admission -Continue strict I's and O's -Sodium restricted diet initiated -Daily weights -Stress test done on 12/18/2021 and was negative for any inducible ischemia 04/19: Improvement in shortness of breath, leg swelling and ascites. 04/20 anasarca corrected. His chest pain and shortness of breath was related to acute on chronic heart failure and got resolved. ACS ruled out with serial negative troponins. CKD stage G4 progressively worsening -Serum creatinine remains to be relatively stable despite aggressive diuresis -Serum creatinine on admission was 2.4 to 2.88. BUN 21. Bicarb 27. -Underlying chronic kidney disease secondary to arterionephrosclerosis status post renal biopsy in the past -Nephrology following-appreciate input Correction: After talking to expressive music therapist to follow as outpatient it seems patient did not had acute kidney injury but CKD G4. His baseline creatinine runs around 3.5: He is on Lasix drip creatinine increased to 3.17 which is his baseline. Lasix drip was discontinued and changed to intermittent Lasix. Patient has low albumin and Bumex is better viability on hypoalbuminemia therefore discharged on Bumex 2 mg twice daily. Prescription given for all antihypertensive medications. Hypokalemia and hypomagnesiA -40 mill colons p.o. potassium Magnesium is getting replaced. Patient also on spironolactone. 04/19: Hypomagnesemia resolved. Patient is on spironolactone 50 mg daily. Hypokalemia hypomagnesemia corrected. Seizure disorder -No recent seizures -Patient is no longer Taking Keppra -Monitor The patient had stroke in July 2021. Since then he had mild right-sided loss of visual acuity. GERD/reflux esophagitis -Continue PPI History of bipolar disorder -Previous suicide attempt -Patient has been off Abilify and clonazepam since October or November -Restart home Abilify at 60 mg daily -Restart Klonopin but at a lower dose 1 mg p.o. twice daily -Of he is dosing was 3 mg in the morning and 1 mg in the evening -Recommend outpatient psychiatric follow-up after discharge DVT prophylaxis -Continue enoxaparin CODE STATUS -full code Discharge medication reconciliation done. Discharge follow-up instructions completed. Discharge process discussed with the patient and all questions were answered to patient's satisfaction. Prescriptions given for Total time spent, exact 35 minutes on discharge meds reconciliation, examination, coordination of care with nurses and ancillary staff, review of imaging and blood test and discussion with the patient on follow-up instructions. Clinical Impression(s) from Imaging Studies Chest X-Ray 04/15/22 18:50 IMPRESSION: Mild bibasilar infiltrate or pulmonary edema with cardiomegaly.. . Cannot exclude mild congestive failure Physical Exam Narrative Seen and examined on the day of discharge. Medication adherence reinforced. On satellite project site monitor patient in sinus rhythm. Blood pressure is controlled. Patient is well diuresed. Physical exam General: Alert, Oriented x3, Cooperative HEENT: Right-sided visual field loss, from previous stroke. Atraumatic, PERRLA, Normocephalic Oral: No Gingival or Mucosal Lesions/ Ulcerations Neck: Supple, No JVD, Negative Carotid Bruits Lungs: Air entry diminished in bilateral lung bases. Bibasilar crepitations Cardiovascular: Regular rate, Regular Rhythm, Normal S1, Normal S2, No murmurs Abdomen: Bowel Sounds Present, Soft, Non Tender, mild ascites : No renal angle tenderness. No suprapubic tenderness. Extremities: Improvement over lower extremity and upper extremity edema and ascites, 1+. Capillary Refill Less than 3 Seconds Skin: No rashes, No breakdown Musculoskeletal: No Tenderness to Palpation of Joints or Extremities Neurological: Mild flattening of right nasolabial fold, chronic Psych/Mental Status: Flat affect Weight / BMI Weight Weight: 225 lb 12.054 oz Body Mass Index (BMI) 38.9 ABG / Lab / Microbiology Data Result Diagrams: 04/17/22 05:05 04/20/22 05:17 Laboratory: Laboratory Results - last 24 hr 04/20/22 05:17: Sodium 140, Potassium 3.9, Chloride 107, Carbon Dioxide 27.0, BUN 28 H, Creatinine 3.17 H, Estim Creat Clear Calc 34.38, Est GFR (MDRD) Af Amer 30 L, Est GFR (MDRD) Non-Af 25 L, BUN/Creatinine Ratio 8.8 L, Glucose 96, Calcium 8.5, Phosphorus 4.2, Magnesium 1.9, Albumin 2.1 L Microbiology: Microbiology 04/15/22 19:32 Nasal Secretion SARS-CoV-2 & FLU Antigen (Rapid) - Final D/C Instructions Discharge Diet: Low fat / Low cholesterol and 2000 mg Sodium Diet Call your doctor if you observe: Fever of 101 or Higher, Coldness, Increased Pain, Numbness or Tingling, Change in Color, Inability to urinate, Inability to have a bowel movement, Shortness of breath, Dizziness, Fainting spells, Swelling in the ankles, Chest pain, Prolonged hiccupping, Increased palpitations (irregular heartbeat), Calf discomfort and Uncontrolled pain Meaningful Use Info Meaningful Use Diagnoses (Choose all that apply): None applicable and CHF CHF NO/ARB ordered at discharge?: No Reason NO/ARB not ordered?: Worsening renal dysfunctn Documented LVEF (%): 60 Discharge Plan Admission Admit Date/Time: 04/15/22 21:26 Primary Reason for Your Visit: Hypertensive emergency, CKD stage IV. Attending Provider: Robin Joya Primary Care Provider: Care Physician,No Primary Consulting Providers: Stephon Guevara ; Alysha Rico ; Veena Anderson Discharge Orders/Prescriptions Prescriptions: New sennosides-docusate sodium [Stool Softener-Stimulant Laxat] 8.6-50 mg Tablet 2 tab PO BID PRN PRN (Reason: Constipation) Qty: 0 0RF minoxidil 2.5 mg Tablet 5 mg PO DAILY Qty: 30 1RF spironolactone 25 mg Tablet 50 mg PO DAILY Qty: 30 2RF aripiprazole 10 mg Tablet 60 mg PO DAILY Qty: 30 0RF bumetanide 2 mg tablet 2 mg PO BID Qty: 60 2RF Continued doxazosin 4 mg tablet 4 mg PO QHS labetalol 200 mg tablet 200 mg PO TIDCM Qty: 90 2RF amlodipine 5 mg tablet 5 mg PO BID Qty: 60 2RF omeprazole 40 mg capsule,delayed release(DR/EC) 40 mg PO DAILY Qty: 30 2RF aspirin 81 mg tablet,delayed release (DR/EC) 81 mg PO BREAKFAST Qty: 30 2RF hydralazine 50 mg tablet 50 mg PO TID Qty: 30 2RF Discontinued furosemide 40 mg tablet 40 mg PO BIDCM spironolactone 25 mg tablet 25 mg PO DAILY Referrals / Follow Up: Alysha Rico MD [Med Staff - Consulting] - Within 2 Weeks Care Physician,No Primary [Primary Care Provider] - Disposition Disposition (needs filled in before D/C Order can be placed): Home, Self Care Charges/Coding Visit Charges Inpatient E&M: 29857 Disch Hosp
== END 2022-04-20 14:36 | disposition home or self-care (01) | DRG 199 ==
LOC: ED 17:56 → PCU 21:45 → ICU 23:56 → PCU 04-18 07:22 → ICU 04-18 10:27
PROVIDERS: Internal Medicine; Internal Medicine Nephrology; Admitting Provider Hospitalist; Emergency Provider Student in an Organized Health Care Education/Training Program; Visit Provider Internal Medicine
DX: I16.1 Hypertensive emergency (principal); I50.33 Acute on chronic diastolic (congestive) heart failure; I13.0 Hypertensive heart and chronic kidney disease with heart failure and stage 1 through stage 4 chronic kidney disease, or unspecified chronic kidney disease; N18.4 Chronic kidney disease, stage 4 (severe); G40.909 Epilepsy, unspecified, not intractable, without status epilepticus; F31.9 Bipolar disorder, unspecified; G35 Multiple sclerosis; E83.42 Hypomagnesemia; E87.6 Hypokalemia; K21.00 Gastro-esophageal reflux disease with esophagitis, without bleeding; F17.290 Nicotine dependence, other tobacco product, uncomplicated; I69.398 Other sequelae of cerebral infarction; H53.40 Unspecified visual field defects; Z79.82 Long term (current) use of aspirin; N50.89 Other specified disorders of the male genital organs; R07.9 Chest pain, unspecified; Z20.822 Contact with and (suspected) exposure to COVID-19; Z79.899 Other long term (current) drug therapy
CPT/HCPCS: 36415; 71045; 80048; 80069; 83735; 83880; 84100; 84484; 85025; 87428; 93005; 97802; 99284; 99406; J7040; J7050; A4216; J1940

== ENCOUNTER → 2022-05-25 | Outpatient (CLI) | payer MEDICAID, SELFPAY ==
[2022-05-25 12:45] LABS: Hematocrit 24.5 % (40-54); Hemoglobin 7.8 g/dL (13.0-16.5); Mean Corp Hgb Conc 31.8 g/dL (32-36); Mean Corpuscular Hgb 28.8 pg (27.0-32.0); Mean Corpuscular Volume 90.4 fL (80-94); Mean Platelet Vol. 12.5 fl (6.2-12.0); Platelet Count 154 K/mm3 (150-450); RBC Distribution Width CV 16.5 % (11.6-14.6); RBC Distribution Width SD 54.2 fl (35.1-43.9); Red Blood Count 2.71 M/mm3 (4.6-6.2); White Blood Count 13.5 K/mm3 (4.4-11.0)
[2022-05-25 13:12] LABS: Vitamin D,25 Hydroxy 9.2 ng/mL
[2022-05-25 13:17] LABS: Albumin, Serum 2.1 g/dL (3.2-5.0); BUN 36 mg/dL (7-18); BUN/Creat Ratio 7.2 RATIO (10-20); Calcium,Total 8.2 mg/dL (8.5-10.1); Chloride 110 mmol/L (98-107); Creatinine, Serum 4.98 mg/dL (0.70-1.30); EST Glomerular Filtration Rate 15 mL/min (>60); Est Glom Filt Rate - Afr Amer 18 mL/min (>60); Glucose 95 mg/dL (74-106); Phosphorus 4.1 mg/dL (2.5-4.9); Potassium 3.2 mmol/L (3.5-5.1); Sodium Level 140 mmol/L (136-145)
[2022-05-25 13:20] LABS: PTHIN 262.8 pg/mL (18.4-80.1)
[2022-05-25 13:40] LABS: Microalbumin:Creatinine Ratio 1043.2 mg/g CRE (<30 mg/g CRE)
== END | disposition home or self-care (01) ==
LOC: BIMLAB 10:21
PROVIDERS: PCP Internal Medicine; Referring Provider Internal Medicine; Visit Provider Internal Medicine
DX: N18.4 Chronic kidney disease, stage 4 (severe) (principal); I12.9 Hypertensive chronic kidney disease with stage 1 through stage 4 chronic kidney disease, or unspecified chronic kidney disease
CPT/HCPCS: 36415; 80069; 82043; 82306; 82570; 83970; 85027

== ENCOUNTER 2022-06-17 18:30 | Inpatient (IN) | payer MEDICAID, SELFPAY ==
[2022-06-17] VITALS (18 sets, daily range): BP systolic 176–235; BP diastolic 128–154; PULSE 97–112; RESP 16–22; TEMP 36.3–37; O2SAT 98–100; BMI 37.6; BMI 36.9
--- NOTE | 2022-06-17 18:57 | EKG12_ITS ---
Test Reason : EDEMA Blood Pressure : / mmHG Vent. Rate : 098 BPM Atrial Rate : 098 BPM P-R Int : 126 ms QRS Dur : 082 ms QT Int : 362 ms P-R-T Axes : 050 043 253 degrees QTc Int : 462 ms Normal sinus rhythm Cannot rule out Anterior infarct , age undetermined Abnormal ECG Confirmed by SHABBIR HAYS, SYL ([id number]), clinical editor JARAD ESTRADA ([id number]) on 06/20/2022 12:20:34 PM Referred By: Confirmed By:SYL SHEA MD
[2022-06-17 19:23] LABS: Absolute Lymphocyte Count 0.95 X10^3/uL (0.83-4.51); Basophil# 0.05 X10^3/uL; Basophil% 0.7 % (0-1); Eosinophil# 0.29 X10^3/uL; Eosinophils% 4.1 % (0-5); Hematocrit 33.5 % (40-54); Hemoglobin 9.8 g/dL (13.0-16.5); Lymphocyte # 0.95 X10^3/ul (0.83-4.51); Lymphocyte % 13.3 % (19-41); Mean Corp Hgb Conc 29.3 g/dL (32-36); Mean Corpuscular Hgb 27.6 pg (27.0-32.0); Mean Corpuscular Volume 94.4 fL (80-94); Mean Platelet Vol. 11.6 fl (6.2-12.0); Monocyte# 0.84 X10^3/uL; Monocyte% 11.8 % (0-10); NRBC Flagged by Analyzer 0 % (0-5); Neutrophil # 4.97 X10^3/uL (2.7-7.7); Neutrophil % 69.5 % (47-70); Platelet Count 261 K/mm3 (150-450); RBC Distribution Width CV 17.7 % (11.6-14.6); RBC Distribution Width SD 61.2 fl (35.1-43.9); Red Blood Count 3.55 M/mm3 (4.6-6.2); White Blood Count 7.1 K/mm3 (4.4-11.0)
[2022-06-17] MEDS: Labetalol (Prefilled) 20 MG/4 ML IV (19:24)
[2022-06-17] MEDS: Furosemide 40 MG/4 ML Vial IV (19:24)
[2022-06-17] MEDS: Aspirin 81 MG TAB.CHEW 324 MG PO (19:24)
--- NOTE | 2022-06-17 19:35 | RAD_ITS ---
INDICATION: chest pain EXAMINATION/TECHNIQUE: X-RAY - portable upright AP chest x-ray COMPARISON: 04/15/2022 FINDINGS: LINES/DEVICES: None. LUNGS: No consolidation, edema or effusion. No pneumothorax. MEDIASTINUM AND CARDIOVASCULAR STRUCTURES: Stable enlargement of the cardiac silhouette. BONES AND SOFT TISSUES: No acute changes. RAD/Chest 1 View (Portable) IMPRESSION: Stable cardiomegaly without acute cardiopulmonary disease. Electronically Signed: Yony Haider MD at 20:30 EST ,
[2022-06-17 19:43] LABS: Anion Gap 10 (5-15); BUN 60 mg/dL (7-18); BUN/Creat Ratio 9.7 RATIO (10-20); Calcium,Total 8.5 mg/dL (8.5-10.1); Chloride 110 mmol/L (98-107); Creatinine, Serum 6.17 mg/dL (0.70-1.30); EST Glomerular Filtration Rate 12 mL/min (>60); Est Glom Filt Rate - Afr Amer 14 mL/min (>60); Estimated Creatinine Clearance 17.67 ml/min; Glucose 150 mg/dL (74-106); Potassium 4.1 mmol/L (3.5-5.1); Sodium Level 138 mmol/L (136-145); Troponin-I HS 136 pg/mL (3.0-78.0)
--- NOTE | 2022-06-17 20:28 | EDS_ITS ---
HPI History of Present Illness Chief Complaint: Edema Informant: patient Narrative Narrative: Patient is a 27-year-old male with extensive medical history including CKD 4, cardiomegaly, tobacco use, hypertension with multiple admissions for hypertensive emergency/accelerated hypertension. He is presenting today with lower extremity edema and pain. States over the past 2 days he had a 40 pound weight gain. He has been more short of breath with exertion and had a hard time sleeping at night. When he woke up this morning he noticed how swollen his legs are. He also feels his abdomen is more distended. He has some slight chest pressure but feels like it is more from although his fluid weight. Patient states he is continue to take his medications including his Bumex but is only urinated once today. No other complaints at this time. Prior similar symptoms: Yes [facility] Medical History Bipolar 1 disorder Bleach ingestion CHF (congestive heart failure) Chronic kidney disease (CKD) stage G4/A3, severely decreased glomerular filtration rate (GFR) between 15-29 mL/min/1.73 square meter and albuminuria creatinine ratio greater than 300 mg/g CVA (cerebral vascular accident) Elevated d-dimer GERD (gastroesophageal reflux disease) GI bleed Hypertension Irritable bowel syndrome (IBS) Multiple sclerosis PUD (peptic ulcer disease) Suicide gesture Tobacco abuse Vision problems Home Medications amlodipine 5 mg tablet 5 mg PO BID BLOOD PRESSURE #60 tabs 05/25/22 [Rx Last Taken Unknown] aripiprazole 30 mg tablet 60 mg PO DAILY #60 tabs 05/25/22 [Rx Last Taken Unknown] aspirin 81 mg tablet,delayed release 81 mg PO [facility] #30 tabs 05/25/22 [Rx Last Taken Unknown] bumetanide 2 mg tablet 2 mg PO BID #60 tabs 05/25/22 [Rx Last Taken Unknown] doxazosin 4 mg tablet 4 mg PO QHS BLOOD PRESSURE #30 tabs 05/25/22 [Rx Last Taken Unknown] hydralazine 50 mg tablet 50 mg PO TID BLOOD PRESSURE #90 tabs 05/25/22 [Rx Last Taken Unknown] labetalol 200 mg tablet 200 mg PO TIDCM BLOOD PRESSURE #90 tabs 05/25/22 [Rx Last Taken Unknown] minoxidil 2.5 mg tablet 5 mg PO DAILY #60 tabs 05/25/22 [Rx Last Taken Unknown] omeprazole 40 mg capsule,delayed release 40 mg PO DAILY ACID REFLUX #30 caps 05/25/22 [Rx Last Taken Unknown] sennosides 8.6 mg-docusate sodium 50 mg tablet (Stool Softener-Stimulant Laxative) 2 tab PO BID PRN PRN Constipation #60 tabs 05/25/22 [Rx Last Taken Unknown] spironolactone 50 mg tablet 50 mg PO DAILY #30 tabs 05/25/22 [Rx Last Taken Unknown] cholecalciferol (vitamin D3) 1,250 mcg (50,000 unit) capsule 1,250 mcg PO QWEEK #12 caps 05/26/22 [Rx Last Taken Unknown] Allergy/AdvReac Type Severity Reaction Status Date / Time No Known Allergies Allergy Verified 06/17/22 18:34 Family History Mother Diabetes Hypertension HLD (hyperlipidemia) Anemia Myocardial infarction Heart disease Kidney disease Father Hypertension HLD (hyperlipidemia) Bipolar disorder Diabetes Alcoholism Arthritis Depression Mental disorder Other CVA (cerebral vascular accident) Surgical History H/O left knee surgery Social History household members: none current occupational status: unemployed 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[employer], 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 Smoking Status: Current every day smoker tobacco type: cigars per week: 35 Smokeless tobacco user: other alcohol intake: current alcohol intake frequency: a few times a week details: 4 x a week substance use type: does not use do you feel safe at home: Yes ROS ROS ED Constitutional Constitutional ED: Denies chills or fever(s) Eyes Eyes: Denies change in vision ENT ENT ED: Denies sore throat Cardiovascular Cardiovascular: Reports chest pain and orthopnea; Denies palpitations Respiratory/Chest Respiratory/Chest: Reports dyspnea, dyspnea on exertion and orthopnea; Denies cough Genitourinary Genitourinary ED: Reports other Details: Decreased urination Musculoskeletal Musculoskeletal: Reports other Details: bilateral leg pain ; Denies arthralgias or myalgias Integumentary Denies rash Neurologic Neurologic: Denies paresthesias or weakness EXAM Physical Exam Const Vital Signs: 06/17/22 18:31 06/17/22 18:47 06/17/22 18:33 Temperature 98.2 F 98.1 F Temperature Source Temporal Temporal Pulse Rate 112 H 108 H Respiratory Rate 16 20 H Respiratory Effort Short of Breath Labored Respiratory Pattern Tachypnea Blood Pressure 235/154 H 217/148 H Blood Pressure Mean 181 171 Pulse Ox 100 100 Oxygen Delivery Method Room Air Room Air 06/17/22 19:37 06/17/22 20:00 06/17/22 20:45 Temperature 98.2 F Temperature Source Oral Pulse Rate 99 97 Respiratory Rate 20 H Respiratory Effort Respiratory Pattern Blood Pressure 193/146 H 194/147 H Blood Pressure Mean 161 Pulse Ox 100 Oxygen Delivery Method Room Air Room Air 06/17/22 21:00 06/17/22 21:31 Temperature 97.8 F 98.6 F Temperature Source Oral Temporal Pulse Rate 102 H 101 H Respiratory Rate 18 18 Respiratory Effort Respiratory Pattern Blood Pressure 200/146 H 196/142 H Blood Pressure Mean 164 160 Pulse Ox 100 100 Oxygen Delivery Method Room Air Room Air Positive well nourished and well developed General Appearance ED: well developed and NAD HEENT Reports moist mucous membranes Eyes PERRL Neck supple Neck Narrative: + JVD Chest Wall inspection of chest normal Resp Resp Narrative: Mild tachypnea with conversational dyspnea. Speaks in 3-4 word sentences. Diminished breath sounds at the bases. Cardio regular rhythm Rate: tachycardic GI GI Narrative: Mildly distended. No fluid wave. Auscultation: normoactive bowel sounds Palpation: soft; Negative for tender or guarding Back/Spine no CVA tenderness Extremity Extremity Narrative: 4+ pitting edema up to the hips bilateral General Extremety ED: Yes edema General Extremity: edema Neuro oriented x3 and no sensory deficits noted Sensorium / Orientation: alert Motor Exam: strength 5/5 throughout; Negative for general weakness Psych mental status grossly normal Skin no rashes or lesions noted and no wounds MDM MDM MDM Narrative Medical decision making narrative: Patient is evaluated for worsening lower extremity edema, weight gain and orthopnea. Differential includes hypertensive emergency, decompensated heart failure, ACS. Renal failure among others. Patient's blood pressure is quite elevated upon arrival at 235/154. He is also mildly tachycardic. Patient is not hypoxic this time however he is tachypneic and does seem to have some increased work of breathing. Clinically he appears fluid overloaded with significant peripheral bilateral edema. Patient's EKG does show some minor T wave changes in the lateral leads. CBC shows an improved anemia with a hemoglobin of 9.8 and CMP shows a significantly worsening creatinine now at 6.17. Less than 1 month ago patient's creatinine was 4.98 and his baseline appears to be closer to 3. Patient's potassium is normal. He does have an elevated high sensitive troponin of 138 and his BNP is also significantly elevated at 4431. Chest x-ray interpreted by myself as well as radiology shows stable cardiomegaly with no significant pleural effusions or pulmonary vascular congestion. Patient is treated initially with IV labetalol as well as IV Lasix. He is then given a dose of clonidine and then placed on Nitropaste for his hypertension. He does have mild improvement of his hypertension but continues to still have quite an elevated blood pressure. Patient was given aspirin for his chest pain however I suspect it is more from his anasarca. Case discussed with admitting physician, Dr. Lino, and decisions made to place the patient in the ICU due to his tenuous blood pressure control and likely need a Lasix drip as well as nitroglycerin drip. Discharge summary from 04/20/2022 and apparently reviewed by myself. That the patient was evaluated also by nephrology, Dr. Rico.Patient has similar pr esentation and was diuresed 21 pounds / -5.3 L during his hospitalization. Patient at that time had normal troponins and had a negative stress test on 12/18/2021. Lab Data Attestation: I reviewed the patient's lab results. Labs: Laboratory Results - last 24 hr 06/17/22 06/17/22 06/17/22 19:18 19:18 19:18 WBC 7.1 RBC 3.55 L Hgb 9.8 L Hct 33.5 L MCV 94.4 H MCH 27.6 MCHC 29.3 L RDW Std Deviation 61.2 H RDW Coeff of [place] 17.7 H Plt Count 261 MPV 11.6 Immature Gran % (Auto) 0.600 Neut % (Auto) 69.5 Lymph % (Auto) 13.3 L [place] % (Auto) 11.8 H Eos % (Auto) 4.1 Baso % (Auto) 0.7 Absolute Neuts (auto) 5.0 Absolute Lymphs (auto) 0.95 Nucleated RBC % 0 Sodium 138 Potassium 4.1 Chloride 110 H Carbon Dioxide 18.0 L Anion Gap 10 BUN 60 H Creatinine 6.17 H Estim Creat Clear Calc 17.67 Est GFR (MDRD) Af Amer 14 L Est GFR (MDRD) Non-Af 12 L BUN/Creatinine Ratio 9.7 L Glucose 150 H Calcium 8.5 Magnesium 2.0 Troponin I High Sens 136 H* B-Natriuretic Peptide 4431.0 H Radiography Diagnostic Testing: Clinical Impression(s) from Imaging Studies Chest X-Ray 06/17/22 19:35 IMPRESSION: Stable cardiomegaly without acute cardiopulmonary disease. Electronically Signed: Yony Haider MD at 20:30 EST , Rhythm Strip Rhythm Strip: Sinus Rhythm Rate: 98 Ectopy: None EKG Initial EKG: Attestation: I personally reviewed and interpreted this EKG as follows: Interpretation: Sinus Rhythm Comments: Normal sinus rhythm at a rate of 98 bpm Normal axis Normal intervals T wave inversions in 2, aVL, V5 and V6 T wave changes are new compared to EKG on 04/16/2022 Prior: Changed Critical Care Time Critical Care Time: Yes Critical care time (excluding procedures): 30-74 minutes (32), Discussing w/Patient &/or Family/Crushing Machine Operator, Arranging Admission or Transfer and Performing Direct Patient Care at Bedside Discharge Plan Dx/Rx/DC Orders Clinical Impression: Acute on chronic heart failure with preserved ejection fraction, JULIANNA (acute kidney injury), Accelerated hypertension, Elevated troponin Disposition Disposition: [facility] Discharge Date/Time: 06/17/22 21:51
[2022-06-17] MEDS: cloNIDine HCl 0.1 MG Tablet PO (20:43)
[2022-06-17] MEDS: Nitroglycerin Oint 1 INCH PACKET TD (20:45)
--- NOTE | 2022-06-17 21:10 | PCM.HP.STD ---
HPI - General General Date of Admission: 06/17/22 Date of Service: 06/17/22 Chief Complaint: Bilateral lower extremity edema HPI Narrative EDU WILCOX, is a 27 M with a significant history of heart failure with preserved ejection fraction; CKD stage IV; bipolar 1 disorder; multiple sclerosis; and tobacco abuse who presents to the emergency department with worsening bilateral lower extremity edema that extends to his lower abdomen. Also reportedly he lost 40 pounds in 2 days. Associated with his symptoms is shortness of breath and chest pressure. At the emergent department because of elevated blood pressure patient received labetalol IV and clonidine p.o. Also nitroglycerin paste was placed on his chest. However his blood pressure remained severely elevated. [facility] Medical History Bipolar 1 disorder Bleach ingestion CHF (congestive heart failure) Chronic kidney disease (CKD) stage G4/A3, severely decreased glomerular filtration rate (GFR) between 15-29 mL/min/1.73 square meter and albuminuria creatinine ratio greater than 300 mg/g CVA (cerebral vascular accident) Elevated d-dimer GERD (gastroesophageal reflux disease) GI bleed Hypertension Irritable bowel syndrome (IBS) Multiple sclerosis PUD (peptic ulcer disease) Suicide gesture Tobacco abuse Vision problems Home Medications amlodipine 5 mg tablet 5 mg PO BID BLOOD PRESSURE #60 tabs 05/25/22 [Rx Last Taken Unknown] aripiprazole 30 mg tablet 60 mg PO DAILY #60 tabs 05/25/22 [Rx Last Taken Unknown] aspirin 81 mg tablet,delayed release 81 mg PO [facility] #30 tabs 05/25/22 [Rx Last Taken Unknown] bumetanide 2 mg tablet 2 mg PO BID #60 tabs 05/25/22 [Rx Last Taken Unknown] doxazosin 4 mg tablet 4 mg PO QHS BLOOD PRESSURE #30 tabs 05/25/22 [Rx Last Taken Unknown] hydralazine 50 mg tablet 50 mg PO TID BLOOD PRESSURE #90 tabs 05/25/22 [Rx Last Taken Unknown] labetalol 200 mg tablet 200 mg PO TIDCM BLOOD PRESSURE #90 tabs 05/25/22 [Rx Last Taken Unknown] minoxidil 2.5 mg tablet 5 mg PO DAILY #60 tabs 05/25/22 [Rx Last Taken Unknown] omeprazole 40 mg capsule,delayed release 40 mg PO DAILY ACID REFLUX #30 caps 05/25/22 [Rx Last Taken Unknown] sennosides 8.6 mg-docusate sodium 50 mg tablet (Stool Softener-Stimulant Laxative) 2 tab PO BID PRN PRN Constipation #60 tabs 05/25/22 [Rx Last Taken Unknown] spironolactone 50 mg tablet 50 mg PO DAILY #30 tabs 05/25/22 [Rx Last Taken Unknown] cholecalciferol (vitamin D3) 1,250 mcg (50,000 unit) capsule 1,250 mcg PO QWEEK #12 caps 05/26/22 [Rx Last Taken Unknown] Allergy/AdvReac Type Severity Reaction Status Date / Time No Known Allergies Allergy Verified 06/17/22 18:34 Family History Mother Diabetes Hypertension HLD (hyperlipidemia) Anemia Myocardial infarction Heart disease Kidney disease Father Hypertension HLD (hyperlipidemia) Bipolar disorder Diabetes Alcoholism Arthritis Depression Mental disorder Other CVA (cerebral vascular accident) Surgical History H/O left knee surgery Social History household members: none current occupational status: unemployed 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 All other systems were reviewed and are negative Vital Signs Vital Signs Vital Signs: 06/17/22 18:31 06/17/22 18:47 06/17/22 18:33 Temperature 98.2 F 98.1 F Temperature Source Temporal Temporal Pulse Rate 112 H 108 H Respiratory Rate 16 20 H Respiratory Effort Short of Breath Labored Respiratory Pattern Tachypnea Blood Pressure 235/154 H 217/148 H Blood Pressure Mean 181 171 Pulse Ox 100 100 Oxygen Delivery Method Room Air Room Air 06/17/22 19:37 06/17/22 20:00 06/17/22 20:45 Temperature 98.2 F Temperature Source Oral Pulse Rate 99 97 Respiratory Rate 20 H Respiratory Effort Respiratory Pattern Blood Pressure 193/146 H 194/147 H Blood Pressure Mean 161 Pulse Ox 100 Oxygen Delivery Method Room Air Room Air 06/17/22 21:00 Temperature 97.8 F Temperature Source Oral Pulse Rate 102 H Respiratory Rate 18 Respiratory Effort Respiratory Pattern Blood Pressure 200/146 H Blood Pressure Mean 164 Pulse Ox 100 Oxygen Delivery Method Room Air Weight Weight: 115.575 kg Body Mass Index (BMI) 37.6 Physical Exam Narrative Physical exam: General: Well-nourished, well-developed. Head: Normocephalic, atraumatic, no tenderness Eyes: Vision is grossly intact. EOMI ENT, no trauma, moist mucous membranes, no rhinorrhea Neck: Nontender, No thyromegaly. CVS: Regular rate and rhythm. S1-S2 present. No murmur, gallop or rub. Respiratory : clear to auscultation bilaterally, chest wall nontender, no wheezing Abdomen: Soft, nontender, nondistended, normal bowel sounds, no masses : Deferred Back: Nontender, no CVA tenderness Extremities: Bilateral lower extremities edema. Nontender full range of motion, no trauma Skin: Normal color, no trauma, abrasions Neuro: Alert, oriented, cranial nerves II through XII grossly intact. Psychiatry: Normal mood. Normal affect. Not depressed. Not anxious. Results Lab / Micro Data Result Diagrams: 06/17/22 19:18 06/17/22 19:18 Labs: Laboratory Results - last 24 hr 06/17/22 19:18: WBC 7.1, RBC 3.55 L, Hgb 9.8 L, Hct 33.5 L, MCV 94.4 H, MCH 27.6, MCHC 29.3 L, RDW Std Deviation 61.2 H, RDW Coeff of [place] 17.7 H, Plt Count 261, MPV 11.6, Immature Gran % (Auto) 0.600, Neut % (Auto) 69.5, Lymph % (Auto) 13.3 L, [place] % (Auto) 11.8 H, Eos % (Auto) 4.1, Baso % (Auto) 0.7, Absolute Neuts (auto) 5.0, Absolute Lymphs (auto) 0.95, Nucleated RBC % 0 06/17/22 19:18: Sodium 138, Potassium 4.1, Chloride 110 H, Carbon Dioxide 18.0 L, Anion Gap 10, BUN 60 H, Creatinine 6.17 H, Estim Creat Clear Calc 17.67, Est GFR (MDRD) Af Amer 14 L, Est GFR (MDRD) Non-Af 12 L, BUN/Creatinine Ratio 9.7 L, Glucose 150 H, Calcium 8.5, Magnesium 2.0, Troponin I High Sens 136 H* 06/17/22 19:18: B-Natriuretic Peptide 4431.0 H Rhythm Strip Rhythm Strip: Sinus Rhythm Rate: 98 Ectopy: None Radiology Impression Chest X-Ray 06/17/22 19:35 IMPRESSION: Stable cardiomegaly without acute cardiopulmonary disease. Electronically Signed: Yony Haider MD at 20:30 EST , Assessment & Plan Assessment/Plan (1) Acute on chronic heart failure with preserved ejection fraction: (2) Hypertensive emergency: PLAN: Plan Acute Exacerbation of heart failure with preserved ejection fraction. Place on critical care bed at this intensive care unit. Impression chest x-ray by radiologist: Stable cardiomegaly without acute cardiopulmonary disease. CXR by my interpretation has engorged vessels compared to previous. Weight on admission to the floor; and then daily Strict I&O's BNP of 4,431 on presentation. His BNP on 04/15/2022 was 2293.9; BNP on 03/31/2022 was 4078.8. And BNP on 01/14/2022 was 3812. Echocardiogram on 05/18/21 showed EF of 60%. Echocardiogram on 12/06/2021 showed moderate concentric left ventricular hypertrophy. Estimated EF of 60%. Left atrium was moderately enlarged. Placed on Lasix drip and nitroglycerin drip Monitor electrolytes and renal function [place] wrap to bilateral lower extremities Fluid restriction of 1250 mls daily 2 g cardiac diet Hypertensive emergency Likely secondary to CHF. Home blood pressure medication continued. Placed nitroglycerin drip. Trend blood pressures. JULIANNA on CKD stage IV His creatinine presentation at the ED was 6.17. Baseline creatinine is around 2.5-3.18. Left second to cardiorenal syndrome. Trend. IV Lasix as above. Elevated high-sensitivity troponin Initial high sensitive troponin emergency department was 136. Likely secondary to demand ischemia. Also noted is mild EKG changes of mild V2 and V3 T wave inversions new compared to April 2022. Trend high sensitive troponin. Aspirin continued. DVT prophylaxis Subcutaneous heparin ordered Charges/Coding Visit Charges Inpatient E&M: 06633 Init Hosp L3
[2022-06-17] MEDS: Nitroglycerin Infusion 250 ML 6 MG CONT INF (21:41)
--- NOTE | 2022-06-17 21:44 | ED.RN ---
Nitro path d/c due to nitro drip hanging.
[2022-06-17] MEDS: amLODIPine 5 MG Tablet PO (22:49)
[2022-06-17] MEDS: hydrALAZINE 50 MG Tablet PO (22:50)
[2022-06-17] MEDS: Doxazosin 4 MG Tablet PO (22:50)
[2022-06-17] MEDS: Heparin Injection (Vial) 5,000 UNIT/ML VIAL 5000 UNIT SC (22:52)
[2022-06-17] MEDS: Furosemide 500 MG in Empty Viaflex 50 mL 1 EACH CONT INF (23:28)
[2022-06-17] MEDS: CLARIFY ORDER 1 EACH NOTE (23:29)
[2022-06-17 23:59] LABS: Troponin-I HS 121 pg/mL (3.0-78.0)
[2022-06-18] VITALS (60 sets, daily range): BP systolic 111–188; BP diastolic 69–133; PULSE 88–106; RESP 16–28; TEMP 36.3–36.6; O2SAT 97–100
[2022-06-18] MEDS: Acetaminophen 325 MG Tablet 650 MG PO (01:53)
[2022-06-18 01:59] LABS: Troponin-I HS 120 pg/mL (3.0-78.0)
[2022-06-18] MEDS: Nitroglycerin Infusion 250 ML 120 MG CONT INF ×3 (03:23→07:34)
[2022-06-18 04:14] LABS: Absolute Lymphocyte Count 0.91 X10^3/uL (0.83-4.51); Absolute Neutrophil Count 3.8 X10^3/uL (2.0-7.7); Basophil# 0.06 X10^3/uL; Eosinophil# 0.35 X10^3/uL; Eosinophils% 5.8 % (0-5); Hematocrit 26.2 % (40-54); Hemoglobin 7.7 g/dL (13.0-16.5); Lymphocyte # 0.91 X10^3/ul (0.83-4.51); Lymphocyte % 15.2 % (19-41); Mean Corp Hgb Conc 29.4 g/dL (32-36); Mean Corpuscular Hgb 27.3 pg (27.0-32.0); Mean Corpuscular Volume 92.9 fL (80-94); Monocyte# 0.81 X10^3/uL; Monocyte% 13.5 % (0-10); NRBC Flagged by Analyzer 0 % (0-5); Neutrophil # 3.84 X10^3/uL (2.7-7.7); Neutrophil % 64.2 % (47-70); Platelet Count 203 K/mm3 (150-450); RBC Distribution Width CV 17.4 % (11.6-14.6); RBC Distribution Width SD 59.3 fl (35.1-43.9); Red Blood Count 2.82 M/mm3 (4.6-6.2)
[2022-06-18 04:30] LABS: Anion Gap 11 (5-15); BUN 61 mg/dL (7-18); BUN/Creat Ratio 10.2 RATIO (10-20); Calcium,Total 7.9 mg/dL (8.5-10.1); Chloride 111 mmol/L (98-107); EST Glomerular Filtration Rate 12 mL/min (>60); Est Glom Filt Rate - Afr Amer 14 mL/min (>60); Estimated Creatinine Clearance 18.17 ml/min; Glucose 117 mg/dL (74-106); Potassium 3.6 mmol/L (3.5-5.1); Sodium Level 139 mmol/L (136-145)
[2022-06-18] MEDS: traMADol 50 MG Tablet PO (04:53)
[2022-06-18] MEDS: hydrALAZINE 50 MG Tablet 100 MG PO ×4 (05:20→20:56)
[2022-06-18] MEDS: Heparin Injection (Vial) 5,000 UNIT/ML VIAL 5000 UNIT SC (05:21)
[2022-06-18] MEDS: Labetalol 200 MG Tablet PO ×2 (07:35→14:56)
[2022-06-18] MEDS: amLODIPine 5 MG Tablet PO ×2 (07:35→20:58)
[2022-06-18] MEDS: Aspirin E.C. 81 MG Tablet PO (07:36)
[2022-06-18] MEDS: Pantoprazole Sodium 40 MG Tablet PO (07:36)
[2022-06-18] MEDS: Minoxidil 2.5 MG Tablet 5 MG PO (07:36)
[2022-06-18] MEDS: Spironolactone 50 MG Tablet PO (07:38)
--- NOTE | 2022-06-18 09:10 | CASEMGMT ---
MARGARITA DURAN Face to Face with patient for initial transition planning/care coordination assessment. MARGARITA DURAN introduced self and role at [facility]. Patient lying in bed, alert and oriented. Patient willing to participate in assessment and is able to answer all questions appropriately. Care providers, pharmacy, and demographics verified. Patient wishes to discharge home, denies need for home health at this time. Patient states he has no further needs or concerns at this time. CM to follow for discharge planning needs that may arise. PCP: [place] Specialists: Patient has appointment to get established with [facility]; Trisha, commercial journeyman electrician; Patient has appt with neurologist but not sure name. Preferred Pharmacy: [facility]; [facility] at discharge. Insurance: [facility] Prescription Benefit: yes Living Will/HPOA: none LNOK: friend Living Arrangements: Patient lives alone in second floor apartment. Patient is independent at home. Transportation: self, friend DME/HHC: Patient denies DME in the home. Patient denies previous HHC or SNF. MARGARITA DURAN discussed Patient Link program with patient and voiced interest. Referral made to Patient Link Disposition Plan: Patient to discharge home with support from friends and follow-up plans in place. Jaylyn DARLING, RN, CM
[2022-06-18] MEDS: ARIPiprazole 10 MG Tablet 60 MG PO (10:30)
--- NOTE | 2022-06-18 15:26 | PCM.CONS.R ---
Assessment & Plan Assessment/Plan (1) JULIANNA (acute kidney injury): PLAN: Most of the elevation of creatinine is due to advanced CKD, the acute component is not as prominent. Even with his previous creatinine he already reached CKD 5. The problem with his situation that he gets readmitted with fluid overload and hypertension. Having said all of the above it is probably safer for him to be on dialysis 3 times a week, so we can control his volume, electrolytes and other metabolic abnormalities. After discussing situation with the patient, he agrees to proceed with dialysis. We will arrange catheter placement on Monday and initiation of dialysis afterwards (2) Accelerated hypertension: PLAN: Better HPI Consult Data Date of Consult: 06/18/22 HPI Narrative Reason for Consultation: Worsening renal function, fluid overload, hypertension HPI Narrative: EDU WILCOX, is a 27 M who presents with shortness of breath, hypertension and worsening kidney function. This is one of the several admissions for this young gentleman. He usually comes in with accelerated hypertension, worsening kidney function and fluid overload. Most recent admission was back in April. The problem is that with every readmission his creatinine gets worse and worse. This time around his creatinine is up to 6. Previous 1 was in the range of 4.8-5. He usually gets an IV Lasix, and his medications get reintroduced and he gets better. Same thing happened this admission. He received IV Lasix, his breathing is better, blood pressure has normalized. His creatinine yesterday was 6.17, it is 6 today. He is not overly uremic, but that is just a matter of time. His acidosis is very mild, his potassium is fine [facility] Medical History Bipolar 1 disorder Bleach ingestion CHF (congestive heart failure) Chronic kidney disease (CKD) stage G4/A3, severely decreased glomerular filtration rate (GFR) between 15-29 mL/min/1.73 square meter and albuminuria creatinine ratio greater than 300 mg/g CVA (cerebral vascular accident) Elevated d-dimer GERD (gastroesophageal reflux disease) GI bleed Hypertension Irritable bowel syndrome (IBS) Multiple sclerosis PUD (peptic ulcer disease) Suicide gesture Tobacco abuse Vision problems Home Medications amlodipine 5 mg tablet 5 mg PO BID BLOOD PRESSURE #60 tabs 05/25/22 [Rx Last Taken Unknown] aripiprazole 30 mg tablet 60 mg PO DAILY #60 tabs 05/25/22 [Rx Last Taken Unknown] aspirin 81 mg tablet,delayed release 81 mg PO [facility] #30 tabs 05/25/22 [Rx Last Taken Unknown] bumetanide 2 mg tablet 2 mg PO BID #60 tabs 05/25/22 [Rx Last Taken Unknown] doxazosin 4 mg tablet 4 mg PO QHS BLOOD PRESSURE #30 tabs 05/25/22 [Rx Last Taken Unknown] hydralazine 50 mg tablet 50 mg PO TID BLOOD PRESSURE #90 tabs 05/25/22 [Rx Last Taken Unknown] labetalol 200 mg tablet 200 mg PO TIDCM BLOOD PRESSURE #90 tabs 05/25/22 [Rx Last Taken Unknown] minoxidil 2.5 mg tablet 5 mg PO DAILY #60 tabs 05/25/22 [Rx Last Taken Unknown] omeprazole 40 mg capsule,delayed release 40 mg PO DAILY ACID REFLUX #30 caps 05/25/22 [Rx Last Taken Unknown] sennosides 8.6 mg-docusate sodium 50 mg tablet (Stool Softener-Stimulant Laxative) 2 tab PO BID PRN PRN Constipation #60 tabs 05/25/22 [Rx Last Taken Unknown] spironolactone 50 mg tablet 50 mg PO DAILY #30 tabs 05/25/22 [Rx Last Taken Unknown] cholecalciferol (vitamin D3) 1,250 mcg (50,000 unit) capsule 1,250 mcg PO QWEEK #12 caps 05/26/22 [Rx Last Taken Unknown] Allergy/AdvReac Type Severity Reaction Status Date / Time No Known Allergies Allergy Verified 06/17/22 18:34 Family History Mother Diabetes Hypertension HLD (hyperlipidemia) Anemia Myocardial infarction Heart disease Kidney disease Father Hypertension HLD (hyperlipidemia) Bipolar disorder Diabetes Alcoholism Arthritis Depression Mental disorder Other CVA (cerebral vascular accident) Surgical History H/O left knee surgery Social History household members: none current occupational status: unemployed 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 His appetite is good, he has no nausea vomiting diarrhea or constipation. Review of Systems ROS Unobtainable: Denies due to encephalopathy, due to endotracheal tube, due to mental condition, due to mental status or other Constitutional Constitutional: Denies chills, fever(s), malaise, weakness, weight gain or weight loss Eyes Eyes: Denies blindness, blurry vision, change in vision, discongugate gaze, double vision, dry eyes or loss of vision ENT HEENT: Denies dry mouth, epistaxis, hoarseness, loss taste/smell or nasal congestion Cardiovascular Cardiovascular: Denies chest pain, claudication, diaphoresis, dyspnea on exertion, edema, irregular heart rhythm, leg edema, orthopnea, palpitations or syncope Respiratory/Chest Respiratory/Chest: Denies dry cough, dyspnea on exertion, hemoptysis, portable oxygen @ home, productive cough, shortness of breath at rest or wheezing Gastrointestinal Gastrointestinal: Denies abdominal pain, anorexia, diarrhea, dry heaves, hematemesis, hematochezia, melena, nausea, rectal bleeding, vomiting or weight changes Genitourinary Genitourinary: Denies change in urinary stream, difficulty urinating, dribbling, dysuria, flank pain, hematuria, nocturia, oliguria, post void dribbling, urinary frequency, urinary hesitancy, urinary incontinence or urinary urgency Musculoskeletal Musculoskeletal: Denies abnormal gait, arthralgias, joint stiffness, joint swelling, muscle cramps or myalgias Integumentary Integumentary: Denies dry skin, erythema, jaundice, lesions, pruritus, rash or skin ulcer Neurologic Neurologic: Denies abnormal gait, burning sensations, confusion, focal weakness, frequent falls, headache(s), numbness, restless legs, seizures, syncope, tremor(s) or weakness Psychiatric Psychiatric: Denies anxiety, confusion, depression or hallucinations Endocrine Endocrinology: Denies cold intolerance, fatigue, heat intolerance, polydipsia or polyuria Hematologic/Lymphatic Hematologic/Lymphatic: Denies anemia, easy bleeding or easy bruising Physical Exam Const alert, oriented x3 and no apparent distress General Appearance: well developed Orientation / Consciousness: oriented to person, oriented to place and oriented to time Nutritional Appearance: obese HEENT normocephalic Head and Scalp: atraumatic Neck no lymphadenopathy Resp no use of accessory muscles and clear to auscultation bilaterally Cardio regular rate, no murmurs and no rub GI non-tender and non-distended Auscultation: normoactive bowel sounds Back/Spine Thoracic Spine / Upper Back: ROM limited Extremity full ROM Neuro Sensorium / Orientation: awake and alert Lab / Micro Data Attestation: I reviewed the patient's lab results. Result Diagrams: 06/18/22 04:05 06/18/22 04:05 Labs: Laboratory Results - last 24 hr 06/17/22 19:18: WBC 7.1, RBC 3.55 L, Hgb 9.8 L, Hct 33.5 L, MCV 94.4 H, MCH 27.6, MCHC 29.3 L, RDW Std Deviation 61.2 H, RDW Coeff of [place] 17.7 H, Plt Count 261, MPV 11.6, Immature Gran % (Auto) 0.600, Neut % (Auto) 69.5, Lymph % (Auto) 13.3 L, [place] % (Auto) 11.8 H, Eos % (Auto) 4.1, Baso % (Auto) 0.7, Absolute Neuts (auto) 5.0, Absolute Lymphs (auto) 0.95, Nucleated RBC % 0 06/17/22 19:18: Sodium 138, Potassium 4.1, Chloride 110 H, Carbon Dioxide 18.0 L, Anion Gap 10, BUN 60 H, Creatinine 6.17 H, Estim Creat Clear Calc 17.67, Est GFR (MDRD) Af Amer 14 L, Est GFR (MDRD) Non-Af 12 L, BUN/Creatinine Ratio 9.7 L, Glucose 150 H, Calcium 8.5, Magnesium 2.0, Troponin I High Sens 136 H* 06/17/22 19:18: B-Natriuretic Peptide 4431.0 H 06/17/22 23:20: Troponin I High Sens 121 H* 06/18/22 01:20: Troponin I High Sens 120 H 06/18/22 04:05: WBC 6.0, RBC 2.82 L, Hgb 7.7 L, Hct 26.2 L, MCV 92.9, MCH 27.3, MCHC 29.4 L, RDW Std Deviation 59.3 H, RDW Coeff of [place] 17.4 H, Plt Count 203, MPV 11.0, Immature Gran % (Auto) 0.300, Neut % (Auto) 64.2, Lymph % (Auto) 15.2 L, [place] % (Auto) 13.5 H, Eos % (Auto) 5.8 H, Baso % (Auto) 1.0, Absolute Neuts (auto) 3.8, Absolute Lymphs (auto) 0.91, Nucleated RBC % 0 06/18/22 04:05: Sodium 139, Potassium 3.6, Chloride 111 H, Carbon Dioxide 17.0 L, Anion Gap 11, BUN 61 H, Creatinine 6.00 H, Estim Creat Clear Calc 18.17, Est GFR (MDRD) Af Amer 14 L, Est GFR (MDRD) Non-Af 12 L, BUN/Creatinine Ratio 10.2, Glucose 117 H, Calcium 7.9 L Rhythm Strip Rhythm Strip: Sinus Rhythm Rate: 98 Ectopy: None Radiology Impression Chest X-Ray 06/17/22 19:35 IMPRESSION: Stable cardiomegaly without acute cardiopulmonary disease. Electronically Signed: Yony Haider MD at 20:30 EST ,
--- NOTE | 2022-06-18 17:31 | PCM.PN.HOSP ---
Reason for Visit Reason for Visit: Diagnoses Essential (primary) hypertension (06/17/22) Hypertensive emergency (06/17/22) Acute on chronic diastolic (congestive) heart failure (06/17/22) Acute kidney failure, unspecified (06/17/22) Subjective Subjective Patient was seen and examined today, he does not appear to be in any distress, I have elected to stop his nitroglycerin drip and cancel the cardiology consultation-I do not believe the patient needs to see cardiology. Patient is vague about his medications and exhibits a poor understanding of his medical problems. Patient appears stable for transfer to PCU at this time, I talked briefly with nephrology about his care, Dr. Rico has not seen the patient in person at his office but has talked him by phone due to the fact the patient told him that he was not able to come to the office for a visit or do a video office visit. Patient has a history of bipolar disorder, I tend to think this is impacted the patient's understanding of his disease process. Patient's creatinine today was 6, patient's hemoglobin today was 7.7. Patient is currently on room air, he does not complain of any shortness of breath. Objective Data Objective Data Vital Signs: Vital Signs Temp Pulse Resp BP Pulse Ox O2 Del Method 97.6 F L 95 16 126/79 H 100 Room Air 06/18/22 14:50 06/18/22 14:56 06/18/22 14:50 06/18/22 14:50 06/18/22 14:50 06/18/22 14:52 Oxygen Delivery Method Room Air Weight: 112.7 kg Body Mass Index (BMI) 36.9 Intake & Output: Intake and Output for Last 24 Hours 06/16/22 06/17/22 06/18/22 23:59 23:59 23:59 Intake Total 17.40 / 19.15 966.75 / 966.75 Output Total 760 / 760 Balance 17.40 / 19.15 206.75 / 206.75 Lab / Micro Data Result Diagrams: 06/18/22 04:05 06/18/22 04:05 Labs: Laboratory Results - last 24 hr 06/17/22 19:18: WBC 7.1, RBC 3.55 L, Hgb 9.8 L, Hct 33.5 L, MCV 94.4 H, MCH 27.6, MCHC 29.3 L, RDW Std Deviation 61.2 H, RDW Coeff of [place] 17.7 H, Plt Count 261, MPV 11.6, Immature Gran % (Auto) 0.600, Neut % (Auto) 69.5, Lymph % (Auto) 13.3 L, [place] % (Auto) 11.8 H, Eos % (Auto) 4.1, Baso % (Auto) 0.7, Absolute Neuts (auto) 5.0, Absolute Lymphs (auto) 0.95, Nucleated RBC % 0 06/17/22 19:18: Sodium 138, Potassium 4.1, Chloride 110 H, Carbon Dioxide 18.0 L, Anion Gap 10, BUN 60 H, Creatinine 6.17 H, Estim Creat Clear Calc 17.67, Est GFR (MDRD) Af Amer 14 L, Est GFR (MDRD) Non-Af 12 L, BUN/Creatinine Ratio 9.7 L, Glucose 150 H, Calcium 8.5, Magnesium 2.0, Troponin I High Sens 136 H* 06/17/22 19:18: B-Natriuretic Peptide 4431.0 H 06/17/22 23:20: Troponin I High Sens 121 H* 06/18/22 01:20: Troponin I High Sens 120 H 06/18/22 04:05: WBC 6.0, RBC 2.82 L, Hgb 7.7 L, Hct 26.2 L, MCV 92.9, MCH 27.3, MCHC 29.4 L, RDW Std Deviation 59.3 H, RDW Coeff of [place] 17.4 H, Plt Count 203, MPV 11.0, Immature Gran % (Auto) 0.300, Neut % (Auto) 64.2, Lymph % (Auto) 15.2 L, [place] % (Auto) 13.5 H, Eos % (Auto) 5.8 H, Baso % (Auto) 1.0, Absolute Neuts (auto) 3.8, Absolute Lymphs (auto) 0.91, Nucleated RBC % 0 06/18/22 04:05: Sodium 139, Potassium 3.6, Chloride 111 H, Carbon Dioxide 17.0 L, Anion Gap 11, BUN 61 H, Creatinine 6.00 H, Estim Creat Clear Calc 18.17, Est GFR (MDRD) Af Amer 14 L, Est GFR (MDRD) Non-Af 12 L, BUN/Creatinine Ratio 10.2, Glucose 117 H, Calcium 7.9 L Radiography Diagnostic Testing: Radiology Impression Chest X-Ray 06/17/22 19:35 IMPRESSION: Stable cardiomegaly without acute cardiopulmonary disease. Electronically Signed: Yony Haider MD at 20:30 EST Reading Location ID and State: [facility] / [place] Tel , Service support , Rhythm Strip Rhythm Strip: Sinus Rhythm Rate: 98 Ectopy: None Physical Exam Const alert, oriented x3, no apparent distress and healthy appearing General Appearance: cooperative, well kempt and well developed Orientation / Consciousness: awake, oriented to person, oriented to place and oriented to time HEENT normocephalic, head/scalp atraumatic and moist oral mucous membranes Eyes PERRL, EOMs intact bilaterally and conjunctivae normal Neck supple, no JVD and thyroid normal General: trachea midline Resp normal respiratory effort, no retractions, no use of accessory muscles and clear to auscultation bilaterally Auscultation: Negative for rales, rhonchi or wheezes Cardio regular rate, regular rhythm, S1 normal heart sound, S2 normal heart sound, no murmurs, no rub and no gallops GI normal to inspection, nondistended, normoactive bowel sounds, soft to palpation, non-tender and non-distended Extremity Extremity Narrative: Patient has generalized edema of the lower legs including the ankles and feet Skin no rashes or lesions noted General Skin Exam: no breakdown Neuro oriented x3, CN's II-XII intact bilaterally, moves all extremities, no focal motor deficits and no sensory deficits noted Sensorium / Orientation: awake, alert, oriented to person, oriented to place and oriented to time Speech: speech normal Psych affect normal Assessment & Plan Assessment/Plan (1) JULIANNA (acute kidney injury): PLAN: Plan 1. Anasarca-most probably secondary to noncompliance with medications, continue IV Lasix, nephrology is seeing the patient today in consultation #2 acute kidney injury on a backdrop of stage V chronic kidney disease-nephrology feels that it is time to proceed with dialysis, patient will have a tunnel dialysis catheter placed on 06/20/2022 #3 uncontrolled hypertension-probably secondary to noncompliance with medications, patient's blood pressure medications will be adjusted #4 bipolar disorder-complicates care, medical course, recovery, and prognosis #5 multiple sclerosis-complicates care, medical course, recovery, and prognosis #6 elevated troponin-secondary to chronic kidney disease, I do not feel the patient has had a non-STEMI I do not believe the patient had congestive heart failure exacerbation at this time, I do believe he has anasarca and I have elected to keep him on a Lasix drip at this time. I do not feel the patient had a hypertensive emergency. Total clinical time spent by myself addressing the patient's medical issues, reviewing all the data, and collaborating with patient's care team: 38 minutes Charges/Coding Visit Charges Inpatient E&M: 44518 Subs Hosp L2
--- NOTE | 2022-06-18 19:11 | CASEMGMT ---
Referral Source: MARGARITA DURAN Referral Reason: Mental Health History Met with briefly to discuss mental health. He has psychiatrist appointment in July. Unsure who the appointment is with but said that his PCP set up the appointment. No counselor Reports no needs except disability information and social services aide directed him to Social Security web site.?No other issues or concerns voiced. SW remains available if needs arise. Chantelle TRINIDAD
[2022-06-18] MEDS: Doxazosin 4 MG Tablet PO (20:58)
[2022-06-18] MEDS: Furosemide 500 MG in Empty Viaflex 50 mL 1 EACH CONT INF (22:31)
[2022-06-19] VITALS (10 sets, daily range): BP systolic 118–141; BP diastolic 60–90; PULSE 91–103; RESP 16–18; TEMP 36.5–37.2; O2SAT 97–99
[2022-06-19] MEDS: Aspirin E.C. 81 MG Tablet PO (09:13)
[2022-06-19] MEDS: Labetalol 200 MG Tablet PO ×3 (09:13→17:26)
[2022-06-19] MEDS: ARIPiprazole 10 MG Tablet 60 MG PO (09:14)
[2022-06-19] MEDS: Spironolactone 50 MG Tablet PO (09:15)
[2022-06-19] MEDS: amLODIPine 5 MG Tablet PO ×2 (09:16→21:26)
[2022-06-19] MEDS: hydrALAZINE 50 MG Tablet 100 MG PO ×4 (09:16→21:26)
[2022-06-19] MEDS: Pantoprazole Sodium 40 MG Tablet PO (09:17)
[2022-06-19] MEDS: Minoxidil 2.5 MG Tablet 5 MG PO (09:17)
[2022-06-19 10:15] LABS: Anion Gap 11 (5-15); BUN 64 mg/dL (7-18); BUN/Creat Ratio 9.5 RATIO (10-20); Calcium,Total 8.6 mg/dL (8.5-10.1); Chloride 110 mmol/L (98-107); Creatinine, Serum 6.76 mg/dL (0.70-1.30); EST Glomerular Filtration Rate 10 mL/min (>60); Est Glom Filt Rate - Afr Amer 13 mL/min (>60); Estimated Creatinine Clearance 16.12 ml/min; Glucose 154 mg/dL (74-106); Sodium Level 137 mmol/L (136-145)
--- NOTE | 2022-06-19 13:07 | PN.HOSP_ITS ---
Reason for Visit Reason for Visit: Diagnoses Essential (primary) hypertension (06/17/22) Hypertensive emergency (06/17/22) Acute on chronic diastolic (congestive) heart failure (06/17/22) Acute kidney failure, unspecified (06/17/22) Subjective Subjective Patient was seen and examined today, I briefly talked with nephrology about his care. Patient's creatinine has worsened slightly from yesterday, creatinine is 6.76. Patient is on room air and he shows no signs of any congestive heart failure. Patient's bicarb today was 16, he complains of generalized swelling including his scrotum. I talked with general surgery today about placement of a dialysis catheter, Dr. Abraham will see him tomorrow, it may be possible to place the dialysis catheter tomorrow or at the latest on Monday. Objective Data Objective Data Vital Signs: Vital Signs Temp Pulse Resp BP Pulse Ox O2 Del Method 98.2 F 103 H 16 118/90 H 98 Room Air 06/19/22 09:04 06/19/22 09:16 06/19/22 09:04 06/19/22 09:04 06/19/22 09:04 06/19/22 09:07 Oxygen Delivery Method Room Air Weight: 113.4 kg Body Mass Index (BMI) 36.9 Intake & Output: Intake and Output for Last 24 Hours 06/17/22 06/18/22 06/19/22 23:59 23:59 23:59 Intake Total 17.40 / 19.15 1189.80 / 1189.80 Output Total 760 / 760 Balance 17.40 / 19.15 429.80 / 429.80 Lab / Micro Data Result Diagrams: 06/18/22 04:05 06/19/22 09:29 Labs: Laboratory Results - last 24 hr 06/19/22 09:29: Sodium 137, Potassium 4.0, Chloride 110 H, Carbon Dioxide 16.0 L , Anion Gap 11, BUN 64 H, Creatinine 6.76 H, Estim Creat Clear Calc 16.12, Est GFR (MDRD) Af Amer 13 L, Est GFR (MDRD) Non-Af 10 L, BUN/Creatinine Ratio 9.5 L, Glucose 154 H, Calcium 8.6 Rhythm Strip Rhythm Strip: Sinus Rhythm Rate: 98 Ectopy: None Physical Exam Narrative alert, oriented x3, no apparent distress and healthy appearing General Appearance: cooperative, well kempt and well developed Orientation / Consciousness: awake, oriented to person, oriented to place and oriented to time HEENT normocephalic, head/scalp atraumatic and moist oral mucous membranes Eyes PERRL, EOMs intact bilaterally and conjunctivae normal Neck supple, no JVD and thyroid normal General: trachea midline Resp normal respiratory effort, no retractions, no use of accessory muscles and clear to auscultation bilaterally Auscultation: Negative for rales, rhonchi or wheezes Cardio regular rate, regular rhythm, S1 normal heart sound, S2 normal heart sound, no murmurs, no rub and no gallops GI normal to inspection, nondistended, normoactive bowel sounds, soft to palpation, non-tender and non-distended Extremity Extremity Narrative: Patient has generalized edema of the lower legs including the ankles and feet, patient also has scrotal edema Skin no rashes or lesions noted General Skin Exam: no breakdown Neuro oriented x3, CN's II-XII intact bilaterally, moves all extremities, no focal mot or deficits and no sensory deficits noted Sensorium / Orientation: awake, alert, oriented to person, oriented to place and oriented to time Speech: speech normal Psych affect normal Assessment & Plan Assessment/Plan (1) JULIANNA (acute kidney injury): PLAN: Plan 1. Anasarca-most probably secondary to noncompliance with medications, continue IV Lasix, nephrology is seeing the patient, we will proceed with insertion of a tunneled dialysis catheter either tomorrow or Monday #2 acute kidney injury on a backdrop of stage V chronic kidney disease- nephrology feels that it is time to proceed with dialysis, patient will have a tunnel dialysis catheter placed on 06/20/2022 or 06/21/2022 #3 uncontrolled hypertension-probably secondary to noncompliance with medications, patient's blood pressure is under adequate control at this time #4 bipolar disorder-complicates care, medical course, recovery, and prognosis #5 multiple sclerosis-complicates care, medical course, recovery, and prognosis #6 elevated troponin-secondary to chronic kidney disease, I do not feel the patient has had a non-STEMI Total clinical time spent by myself addressing the patient's medical issues, reviewing all the data, and collaborating with patient's care team: 38 minutes Charges/Coding Visit Charges Inpatient E&M: 72863 Subs Hosp L2
[2022-06-19] MEDS: Doxazosin 4 MG Tablet PO (21:27)
[2022-06-19] MEDS: Furosemide 500 MG in Empty Viaflex 50 mL 1 EACH CONT INF (22:16)
[2022-06-20] VITALS (9 sets, daily range): BP systolic 122–143; BP diastolic 66–88; PULSE 91–110; RESP 16–18; TEMP 36.4–37; O2SAT 97–99
--- NOTE | 2022-06-20 05:55 | EKG12_ITS ---
Test Reason : AM EKG Blood Pressure : / mmHG Vent. Rate : 087 BPM Atrial Rate : 087 BPM P-R Int : 134 ms QRS Dur : 090 ms QT Int : 424 ms P-R-T Axes : 036 043 169 degrees QTc Int : 510 ms Normal sinus rhythm Possible Left atrial enlargement T wave abnormality, consider inferolateral ischemia Prolonged QT Abnormal ECG Confirmed by SHABBIR HAYS, SYL ([id number]), loan expeditor JARAD ESTRADA ([id number]) on 06/21/2022 9:32:54 AM Referred By: Confirmed By:SYL SHEA MD
[2022-06-20 06:25] LABS: Absolute Lymphocyte Count 0.72 X10^3/uL (0.83-4.51); Absolute Neutrophil Count 3.6 X10^3/uL (2.0-7.7); Basophil# 0.05 X10^3/uL; Basophil% 0.9 % (0-1); Eosinophil# 0.29 X10^3/uL; Eosinophils% 5.2 % (0-5); Hematocrit 27.7 % (40-54); Lymphocyte # 0.72 X10^3/ul (0.83-4.51); Mean Corp Hgb Conc 28.9 g/dL (32-36); Mean Corpuscular Hgb 27.3 pg (27.0-32.0); Mean Corpuscular Volume 94.5 fL (80-94); Mean Platelet Vol. 11.4 fl (6.2-12.0); Monocyte# 0.84 X10^3/uL; Monocyte% 15.2 % (0-10); NRBC Flagged by Analyzer 0 % (0-5); Neutrophil # 3.62 X10^3/uL (2.7-7.7); Neutrophil % 65.5 % (47-70); Platelet Count 242 K/mm3 (150-450); RBC Distribution Width CV 17.9 % (11.6-14.6); RBC Distribution Width SD 61.7 fl (35.1-43.9); Red Blood Count 2.93 M/mm3 (4.6-6.2); White Blood Count 5.5 K/mm3 (4.4-11.0)
[2022-06-20 06:48] LABS: Anion Gap 9 (5-15); BUN 68 mg/dL (7-18); Calcium,Total 8.5 mg/dL (8.5-10.1); Chloride 111 mmol/L (98-107); Creatinine, Serum 6.83 mg/dL (0.70-1.30); EST Glomerular Filtration Rate 10 mL/min (>60); Est Glom Filt Rate - Afr Amer 12 mL/min (>60); Estimated Creatinine Clearance 15.96 ml/min; Glucose 100 mg/dL (74-106); Sodium Level 138 mmol/L (136-145)
--- NOTE | 2022-06-20 08:49 | PN.RENAL_ITS ---
Subjective Subjective Sitting on side of bed. No overnight events. Denies any complaints today. Objective Data Objective Data Vital Signs: Vital Signs Temp Pulse Resp BP Pulse Ox O2 Del Method 98.2 F 91 16 122/74 H 98 Room Air 06/20/22 03:59 06/20/22 03:59 06/20/22 03:59 06/20/22 03:59 06/20/22 07:37 06/20/22 07:37 Oxygen Delivery Method Room Air Weight: 114 kg Body Mass Index (BMI) 36.9 Intake & Output: Intake and Output for Last 24 Hours 06/18/22 06/19/22 06/20/22 23:59 23:59 23:59 Intake Total 1189.80 / 1189.80 503.75 / 503.75 Output Total 760 / 760 1175 / 1175 200 / 200 Balance 429.80 / 429.80 -671.25 / -671.25 -200 / -200 Lab / Micro Data Result Diagrams: 06/20/22 05:09 06/20/22 05:09 Labs: Laboratory Results - last 24 hr 06/19/22 09:29: Sodium 137, Potassium 4.0, Chloride 110 H, Carbon Dioxide 16.0 L , Anion Gap 11, BUN 64 H, Creatinine 6.76 H, Estim Creat Clear Calc 16.12, Est GFR (MDRD) Af Amer 13 L, Est GFR (MDRD) Non-Af 10 L, BUN/Creatinine Ratio 9.5 L, Glucose 154 H, Calcium 8.6 06/20/22 05:09: WBC 5.5, RBC 2.93 L, Hgb 8.0 L, Hct 27.7 L, MCV 94.5 H, MCH 27.3, MCHC 28.9 L, RDW Std Deviation 61.7 H, RDW Coeff of [place] 17.9 H, Plt Count 242, MPV 11.4, Immature Gran % (Auto) 0.200, Neut % (Auto) 65.5, Lymph % (Auto) 13.0 L, [place] % (Auto) 15.2 H, Eos % (Auto) 5.2 H, Baso % (Auto) 0.9, Absolute Neuts (auto) 3.6, Absolute Lymphs (auto) 0.72 L, Nucleated RBC % 0 06/20/22 05:09: Sodium 138, Potassium 4.0, Chloride 111 H, Carbon Dioxide 18.0 L , Anion Gap 9, BUN 68 H, Creatinine 6.83 H, Estim Creat Clear Calc 15.96, Est GFR (MDRD) Af Amer 12 L, Est GFR (MDRD) Non-Af 10 L, BUN/Creatinine Ratio 10.0, Glucose 100, Calcium 8.5 Rhythm Strip Rhythm Strip: Sinus Rhythm Rate: 98 Ectopy: None Physical Exam Narrative Alert and oriented x3, no apparent distress S1, S2, RRR Lung sounds clear Pitting edema noted to bilateral lower legs and thighs Assessment & Plan Assessment/Plan (1) JULIANNA (acute kidney injury): PLAN: New ESRD. Patient will have tunneled HD catheter placed and undergo dialysis over 2 hours, will plan for dialysis again tomorrow over 2.5 hours with fluid removal as patient/blood pressure tolerates. Discussed with social media sr strategy manager, patient to have dialysis arranged at [facility] [place]. Can stop Lasix drip once dialysis is started. Hopefully we will see better blood pressure control as volume is better controlled with dialysis. Continue amlodipine, Cardura, labetalol, minoxidil, Aldactone and hydralazine. Hemoglobin is 8, patient will receive iron and MICHEL[facility] at [facility]. (2) Accelerated hypertension:
[2022-06-20] MEDS: Minoxidil 2.5 MG Tablet 5 MG PO (09:24)
[2022-06-20] MEDS: hydrALAZINE 50 MG Tablet 100 MG PO ×4 (09:24→20:48)
[2022-06-20] MEDS: amLODIPine 5 MG Tablet PO ×2 (09:24→20:48)
[2022-06-20] MEDS: Labetalol 200 MG Tablet PO ×3 (09:24→17:58)
[2022-06-20] MEDS: Aspirin E.C. 81 MG Tablet PO (09:24)
[2022-06-20] MEDS: ARIPiprazole 10 MG Tablet 60 MG PO (09:24)
[2022-06-20] MEDS: Pantoprazole Sodium 40 MG Tablet PO (09:24)
[2022-06-20] MEDS: Spironolactone 50 MG Tablet PO (09:25)
[2022-06-20 09:55] LABS: Hepatitis B Surface Antigen Non-Reactive (Nonreactive)
--- NOTE | 2022-06-20 10:24 | CASEMGMT ---
MARGARITA DURAN updated by Nancy GUTIERREZ, nephrology, that patient will need outpatient HD. MARGARITA DURAN in to patient's room to discuss HD centers. Patient states he prefers [facility]. MARGARITA DURAN sent referral to [facility] via their referral portal. MARGARITA DURAN called and updated Selena at [facility] regarding new referral. CM will continue to follow this patient and plan for a safe discharge.
--- NOTE | 2022-06-20 11:57 | EX.PCM.CON.S ---
Assessment & Plan Assessment/Plan (1) CKD (chronic kidney disease) stage 4, GFR 15-29 ml/min: PLAN: This is a 27-year-old male with acute on chronic kidney disease which is being called new ESRD by nephrology. Therefore they have recommended initiation of hemodialysis. Durable access has been requested. I find no contraindications to this request as patient has had no prior central lines and has no history of cutaneous infection. I did discuss with him that treatment goal should include possible fistula placement and that his catheter should not be thought of as a destination therapy. I also shared with him the risks of catheter use?most notably infection. He provided his verbal consent to proceed as described. Please keep patient n.p.o. past midnight as we will plan for placement in the OR tomorrow AM. HPI Consult Data Date of Consult: 06/20/22 HPI Narrative HPI Narrative: EDU ULLOA, is a 27 M who is admitted to [facility] for volume overload and acute on chronic kidney disease. I am asked to see patient on account of a recent nephrology recommendation that patient begin dialysis and have requested placement of a tunneled hemodialysis catheter. Patient states that he has had multiple such admissions in the past, but has never required hemodialysis. He is currently on diuresis, but nephrology recommends dialysis at this time. Mr. Ortega Ulloa denies any history of central line placement. He denies any history of skin infections. He denies any history of prior anesthetic complications. [facility] Medical History Bipolar 1 disorder Bleach ingestion CHF (congestive heart failure) Chronic kidney disease (CKD) stage G4/A3, severely decreased glomerular filtration rate (GFR) between 15-29 mL/min/1.73 square meter and albuminuria creatinine ratio greater than 300 mg/g CVA (cerebral vascular accident) Elevated d-dimer GERD (gastroesophageal reflux disease) GI bleed Hypertension Irritable bowel syndrome (IBS) Multiple sclerosis PUD (peptic ulcer disease) Suicide gesture Tobacco abuse Vision problems Home Medications amlodipine 5 mg tablet 5 mg PO BID BLOOD PRESSURE #60 tabs 05/25/22 [Rx Last Taken Unknown] aripiprazole 30 mg tablet 60 mg PO DAILY #60 tabs 05/25/22 [Rx Last Taken Unknown] aspirin 81 mg tablet,delayed release 81 mg PO BREAKFAST [employer] #30 tabs 05/25/22 [Rx Last Taken Unknown] bumetanide 2 mg tablet 2 mg PO BID #60 tabs 05/25/22 [Rx Last Taken Unknown] doxazosin 4 mg tablet 4 mg PO QHS BLOOD PRESSURE #30 tabs 05/25/22 [Rx Last Taken Unknown] hydralazine 50 mg tablet 50 mg PO TID BLOOD PRESSURE #90 tabs 05/25/22 [Rx Last Taken Unknown] labetalol 200 mg tablet 200 mg PO TIDCM BLOOD PRESSURE #90 tabs 05/25/22 [Rx Last Taken Unknown] minoxidil 2.5 mg tablet 5 mg PO DAILY #60 tabs 05/25/22 [Rx Last Taken Unknown] omeprazole 40 mg capsule,delayed release 40 mg PO DAILY ACID REFLUX #30 caps 05/25/22 [Rx Last Taken Unknown] sennosides 8.6 mg-docusate sodium 50 mg tablet (Stool Softener-Stimulant Laxative) 2 tab PO BID PRN PRN Constipation #60 tabs 05/25/22 [Rx Last Taken Unknown] spironolactone 50 mg tablet 50 mg PO DAILY #30 tabs 05/25/22 [Rx Last Taken Unknown] cholecalciferol (vitamin D3) 1,250 mcg (50,000 unit) capsule 1,250 mcg PO QWEEK #12 caps 05/26/22 [Rx Last Taken Unknown] Allergy/AdvReac Type Severity Reaction Status Date / Time No Known Allergies Allergy Verified 06/17/22 18:34 Family History Mother Diabetes Hypertension HLD (hyperlipidemia) Anemia Myocardial infarction Heart disease Kidney disease Father Hypertension HLD (hyperlipidemia) Bipolar disorder Diabetes Alcoholism Arthritis Depression Mental disorder Other CVA (cerebral vascular accident) Surgical History H/O left knee surgery Social History household members: none current occupational status: unemployed 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 There are no scars. Resp normal respiratory effort Lab / Micro Data Result Diagrams: 06/20/22 05:09 06/20/22 05:09 Labs: Laboratory Results - last 24 hr 06/20/22 05:09: WBC 5.5, RBC 2.93 L, Hgb 8.0 L, Hct 27.7 L, MCV 94.5 H, MCH 27.3, MCHC 28.9 L, RDW Std Deviation 61.7 H, RDW Coeff of [place] 17.9 H, Plt Count 242, MPV 11.4, Immature Gran % (Auto) 0.200, Neut % (Auto) 65.5, Lymph % (Auto) 13.0 L, [place] % (Auto) 15.2 H, Eos % (Auto) 5.2 H, Baso % (Auto) 0.9, Absolute Neuts (auto) 3.6, Absolute Lymphs (auto) 0.72 L, Nucleated RBC % 0 06/20/22 05:09: Sodium 138, Potassium 4.0, Chloride 111 H, Carbon Dioxide 18.0 L, Anion Gap 9, BUN 68 H, Creatinine 6.83 H, Estim Creat Clear Calc 15.96, Est GFR (MDRD) Af Amer 12 L, Est GFR (MDRD) Non-Af 10 L, BUN/Creatinine Ratio 10.0, Glucose 100, Calcium 8.5 06/20/22 05:09: Hep Bs Antigen Non-Reactive Rhythm Strip Rhythm Strip: Sinus Rhythm Rate: 98 Ectopy: None
--- NOTE | 2022-06-20 15:06 | CHAPLAIN ---
Type of Pastoral Visit _x__ Initial Visit ___ Follow-up Visit ___ On-call Visit ___ General Patient Visit ___ Spiritual Assessment ___ Family Conference ___ Bereavement ___ Rapid Response ___ Code Blue ___ Other (describe below) Pastoral Care Referral From _x_ Patient ___ Family ___ Nurse ___ Physician ___ Gettering Operator ___ Rehabilitator ___ Other (describe below) Sacrament/Intervention ___ Active listening ___ Anointing ___ Hinduism ___ Bereavement ___ Communion ___ Elis exploration ___ ___ Life review ___ Prayer ___ Reconciliation ___ Sacrament of Sick _x__ Supportive presence ___ Wedding ___ Other (describe below) Pastoral Comments patient was resting in bed and easily awaken by name; pt states that he is just waiting on things to develop for his care and that he has no needs or concerns at this time; pt was offered support as desired for the future
[2022-06-20] MEDS: traMADol 50 MG Tablet PO ×2 (15:28→22:41)
--- NOTE | 2022-06-20 18:35 | PCM.PN.HOSP ---
Reason for Visit Reason for Visit: Diagnoses Essential (primary) hypertension (06/17/22) Hypertensive emergency (06/17/22) Acute on chronic diastolic (congestive) heart failure (06/17/22) Acute kidney failure, unspecified (06/17/22) Chronic kidney disease, stage 4 (severe) (06/17/22) Subjective Subjective Patient was seen and examined today, he is still diuresing somewhat with the Lasix drip, the tunneled dialysis catheter was not able to be placed today and it would be put in tomorrow, I let nephrology know this. I also told the patient that he most probably would be undergoing dialysis tomorrow. Patient does not complain of any shortness of breath, he remains on room air at this time and his blood pressure is controlled. Objective Data Objective Data Vital Signs: Vital Signs Temp Pulse Resp BP Pulse Ox O2 Del Method 98.3 F 110 H 16 137/66 H 97 Room Air 06/20/22 15:22 06/20/22 17:58 06/20/22 15:22 06/20/22 15:22 06/20/22 15:22 06/20/22 15:22 Oxygen Delivery Method Room Air Weight: 114 kg Body Mass Index (BMI) 36.9 Intake & Output: Intake and Output for Last 24 Hours 06/18/22 06/19/22 06/20/22 23:59 23:59 23:59 Intake Total 1189.80 / 1189.80 503.75 / 503.75 Output Total 760 / 760 1175 / 1175 500 / 500 Balance 429.80 / 429.80 -671.25 / -671.25 -500 / -500 Lab / Micro Data Result Diagrams: 06/20/22 05:09 06/20/22 05:09 Labs: Laboratory Results - last 24 hr 06/20/22 05:09: WBC 5.5, RBC 2.93 L, Hgb 8.0 L, Hct 27.7 L, MCV 94.5 H, MCH 27.3, MCHC 28.9 L, RDW Std Deviation 61.7 H, RDW Coeff of [place] 17.9 H, Plt Count 242, MPV 11.4, Immature Gran % (Auto) 0.200, Neut % (Auto) 65.5, Lymph % (Auto) 13.0 L, [place] % (Auto) 15.2 H, Eos % (Auto) 5.2 H, Baso % (Auto) 0.9, Absolute Neuts (auto) 3.6, Absolute Lymphs (auto) 0.72 L, Nucleated RBC % 0 06/20/22 05:09: Sodium 138, Potassium 4.0, Chloride 111 H, Carbon Dioxide 18.0 L, Anion Gap 9, BUN 68 H, Creatinine 6.83 H, Estim Creat Clear Calc 15.96, Est GFR (MDRD) Af Amer 12 L, Est GFR (MDRD) Non-Af 10 L, BUN/Creatinine Ratio 10.0, Glucose 100, Calcium 8.5 06/20/22 05:09: Hep Bs Antigen Non-Reactive Rhythm Strip Rhythm Strip: Sinus Rhythm Rate: 98 Ectopy: None Physical Exam Const alert, oriented x3, no apparent distress and healthy appearing General Appearance: cooperative, well kempt and well developed Orientation / Consciousness: awake, oriented to person, oriented to place and oriented to time HEENT normocephalic, head/scalp atraumatic and moist oral mucous membranes Eyes PERRL, EOMs intact bilaterally and conjunctivae normal Neck supple, no JVD, thyroid normal and no carotid bruits General: trachea midline Resp normal respiratory effort, no retractions, no use of accessory muscles and clear to auscultation bilaterally Auscultation: Negative for rales, rhonchi or wheezes Cardio regular rate, regular rhythm, S1 normal heart sound, S2 normal heart sound, no murmurs, no rub and no gallops GI normal to inspection, nondistended, normoactive bowel sounds, soft to palpation, non-tender and non-distended Extremity Extremity Narrative: Patient has generalized edema in the legs and scrotal area Skin no rashes or lesions noted General Skin Exam: no breakdown Neuro oriented x3, CN's II-XII intact bilaterally, no focal motor deficits and no sensory deficits noted Sensorium / Orientation: awake and alert Speech: speech normal Psych affect normal Assessment & Plan Assessment/Plan (1) CKD (chronic kidney disease) stage 4, GFR 15-29 ml/min: (2) JULIANNA (acute kidney injury): PLAN: Plan 1. Anasarca-most probably secondary to noncompliance with medications, continue IV Lasix, nephrology is seeing the patient, we will proceed with insertion of a tunneled dialysis catheter either tomorrow #2 acute kidney injury on a backdrop of stage V chronic kidney disease-nephrology feels that it is time to proceed with dialysis, patient will have a tunnel dialysis catheter placed on 06/21/2022 #3 uncontrolled hypertension-probably secondary to noncompliance with medications, patient's blood pressure is under adequate control at this time #4 bipolar disorder-complicates care, medical course, recovery, and prognosis #5 multiple sclerosis-complicates care, medical course, recovery, and prognosis #6 elevated troponin-secondary to chronic kidney disease, I do not feel the patient has had a non-STEMI Total clinical time spent by myself addressing the patient's medical issues, reviewing all the data, and collaborating with patient's care team: 36 minutes Charges/Coding Visit Charges Inpatient E&M: 65821 Subs Hosp L2
[2022-06-20] MEDS: 0.9% Saline Lock 10 ML Syringe IV (20:48)
[2022-06-20] MEDS: Doxazosin 4 MG Tablet PO (20:48)
[2022-06-21] VITALS (21 sets, daily range): BP systolic 99–158; BP diastolic 56–121; PULSE 76–91; RESP 16–20; TEMP 36.2–36.7; O2SAT 90–99; BMI 37.0
--- NOTE | 2022-06-21 05:55 | EKG12_ITS ---
Test Reason : AM EKG Blood Pressure : / mmHG Vent. Rate : 085 BPM Atrial Rate : 085 BPM P-R Int : 138 ms QRS Dur : 088 ms QT Int : 414 ms P-R-T Axes : 046 054 183 degrees QTc Int : 492 ms Normal sinus rhythm Possible Left atrial enlargement Cannot rule out Anterior infarct , age undetermined T wave abnormality, consider inferolateral ischemia Abnormal ECG Confirmed by NAT HAYS, ALBERTO ([id number]), film or videotape editor JARAD ESTRADA ([id number]) on 06/22/2022 8:51:54 AM Referred By: Confirmed By:ALBERTO JOHNS MD
[2022-06-21] MEDS: amLODIPine 5 MG Tablet PO ×2 (06:12→20:55)
[2022-06-21] MEDS: Pantoprazole Sodium 40 MG Tablet PO (06:12)
[2022-06-21] MEDS: Minoxidil 2.5 MG Tablet 5 MG PO (06:12)
[2022-06-21] MEDS: Labetalol 200 MG Tablet PO ×3 (06:13→18:21)
[2022-06-21] MEDS: hydrALAZINE 50 MG Tablet 100 MG PO ×3 (06:13→20:55)
[2022-06-21 06:14] LABS: Absolute Lymphocyte Count 0.66 X10^3/uL (0.83-4.51); Absolute Neutrophil Count 3.1 X10^3/uL (2.0-7.7); Basophil# 0.05 X10^3/uL; Eosinophil# 0.24 X10^3/uL; Eosinophils% 4.9 % (0-5); Hematocrit 27.3 % (40-54); Hemoglobin 7.9 g/dL (13.0-16.5); Lymphocyte # 0.66 X10^3/ul (0.83-4.51); Lymphocyte % 13.6 % (19-41); Mean Corp Hgb Conc 28.9 g/dL (32-36); Mean Corpuscular Hgb 27.3 pg (27.0-32.0); Mean Corpuscular Volume 94.5 fL (80-94); Mean Platelet Vol. 10.7 fl (6.2-12.0); Monocyte# 0.79 X10^3/uL; Monocyte% 16.3 % (0-10); NRBC Flagged by Analyzer 0 % (0-5); Neutrophil % 63.8 % (47-70); Platelet Count 227 K/mm3 (150-450); RBC Distribution Width CV 17.8 % (11.6-14.6); RBC Distribution Width SD 62.2 fl (35.1-43.9); Red Blood Count 2.89 M/mm3 (4.6-6.2); White Blood Count 4.9 K/mm3 (4.4-11.0)
[2022-06-21 06:41] LABS: Anion Gap 11 (5-15); BUN 77 mg/dL (7-18); BUN/Creat Ratio 10.7 RATIO (10-20); Calcium,Total 8.7 mg/dL (8.5-10.1); Chloride 109 mmol/L (98-107); Creatinine, Serum 7.19 mg/dL (0.70-1.30); EST Glomerular Filtration Rate 10 mL/min (>60); Est Glom Filt Rate - Afr Amer 12 mL/min (>60); Estimated Creatinine Clearance 15.16 ml/min; Glucose 100 mg/dL (74-106); Potassium 3.9 mmol/L (3.5-5.1); Sodium Level 138 mmol/L (136-145)
[2022-06-21] MEDS: Cefazolin 2 GM in 0.9% Normal Saline 100 ML IV (08:35)
--- NOTE | 2022-06-21 09:42 | CASEMGMT ---
MARGARITA DURAN received voicemail and fax from [employer] that patient was approved for outpatient HD at [facility] on MWF 1310. MARGARITA DURAN updated patient and nephrology. CM will continue to follow this patient and plan for a safe discharge.
[2022-06-21] MEDS: Heparin 10,000 UNITS/10 ML Vial 10000 UNITS (09:51)
[2022-06-21] MEDS: Bupivacaine 0.5% PF 10 ML VIAL (09:52)
--- NOTE | 2022-06-21 09:56 | OP.PCM_ITS ---
Report of Operation Date of Procedure: 06/21/22 Pre-Operative Diagnosis: New end-stage renal disease Post-Operative Diagnosis: Same Surgery/Procedure Performed:: Insertion of 14.5 Telugu, 19 cm tunneled hemodialysis catheter Surgeon: Neftali Abraham service delivery consultant: None Type of Anesthesia: MAC/Supplemental/Local Anesthesiologist: Casey Anna Specimen's removed: NA Estimated Blood Loss (mL): 50 Description of Procedure: After appropriate identification in the preoperative holding area the patient was brought to the operating room where that they were positioned supine on the operating room table. Preoperative antibiotics were completely administered. Sedation was begun per anesthesia and the patient's right neck was prepped and draped in usual sterile fashion after confirming patency of the right internal jugular vein with bedside ultrasound. Formal timeout was conducted to confirm both the patient and the procedure. Procedure was begun with ultrasound-guided access of the right internal jugular vein using a micropuncture access kit. Fluoroscopy confirmed appropriate position of the wire and the micro access sheath. At this point I made a measurement from the insertion site to the mid atrium of approximately 15 cm. Desiring some room for the patient's tunneling/cuff placement, elected to proceed with a 19 cm catheter. The 035 guidewire from the catheter kit was placed through the micro access sheath and again fluoroscopy was used to confirm this placement. The insertion site was then enlarged sharply and bluntly. Measuring back from the proximal insertion site on the catheter, we determined that the tunneling site would need to be at least 5.5 cm away from the insertion site. Therefore this was measured out on the patient's chest and a counterincision was made at this point after instilling local anesthetic. A gentle curve of the tunneling tract to the inser tion site was also instilled with local anesthetic. Then the catheter was connected to the tunneling device and was tunneled to the insertion site in the neck. Next the insertion site was serially dilated and the peel-away sheath was placed under fluoroscopy. The catheter was fed through the peel-away sheath and once we neared completion another fluoroscopy image was obtained. Functionally, the catheter was tested with aspiration and flush of injectable saline which it did with some resistance. A follow-up fluoroscopy image showed that there was kinking at the insertion site. I attempted to adjust this issue through the stab incision in the neck, but made little progress despite repeated attempts. Wanting to remove this kinking and improve function, I chose to replace the 035 guidewire through the external port site under fluoroscopy. This proved effective in removing the kinking of the catheter and the function improved thereafter. Once again the catheter function was tested with injectable saline and this time both port sites aspirated and flushed with ease. The catheter was locked with 2.0 mL heparinized saline (concentration 1000 units/mL). the insertion site was then closed with a single interrupted 3-0 nylon stitch. Another 3-0 nylon stitch was used to close down the insertion site at the tunneling entrance as a means of creating a cerclage. Lastly, the catheter was secured at the tiedown points on each port with a interrupted 2-0 nylon. A chlorhexidine gel dressing was positioned at the tunneling exit site after cleaning the operative field. A small OpSite was applied to the insertion site. Patient was then allowed to emerge from sedation and was taken to PACU in stable condition. A chest x-ray was ordered in PACU for review of the catheter placement and to exclude pneumothorax. Complications None Admit VTE Documentation VTE Mechan Device Prophylaxis: SCD's Procedures Cardiovascular CF Procedures [id number]: [id number] Insert tunneled cv cath
--- NOTE | 2022-06-21 10:11 | RAD_ITS ---
STUDY: X-RAY CHEST REASON FOR EXAM: Male, 27 years old. Status post line placement TECHNIQUE: Single AP portable view of the chest. COMPARISON: Comparison is made with prior study dated 06/17/2022. FINDINGS: A right-sided double catheter has been placed. The tip is at the junction of the superior vena cava and right atrium. Mild degree of vascular congestion. There is no demonstrated pleural abnormality. There is moderate cardiac enlargement. Normal mediastinum and bharath. Normal visualized pulmonary arteries. Normal visualized aortic arch and descending thoracic aorta. Normal visualized thoracic spine. Normal visualized ribs, clavicles, and shoulders. There is no demonstrated abnormality of the visualized soft tissue structures of the upper abdomen. RAD/CXR for Line Placement IMPRESSION: The tip of the right-sided double-lumen catheter is at the junction of the superior vena cava and right atrium. Mild degree of vascular congestion and cardiomegaly. Electronically Signed: Matt Harris MD at 11:09 EST ,
--- NOTE | 2022-06-21 11:13 | PCM.PN.REN ---
Subjective Subjective Just returned from having tunneled HD catheter placed. Denies any complaints. No overnight events Objective Data Objective Data Vital Signs: Vital Signs Temp Pulse Resp BP Pulse Ox O2 Del Method O2 Flow Rate 97.2 F L 79 16 119/65 93 Room Air 2 06/21/22 10:45 06/21/22 10:45 06/21/22 10:45 06/21/22 10:45 06/21/22 10:45 06/21/22 10:45 06/21/22 10:30 Oxygen Flow Rate (L/min) 2 Oxygen Delivery Method Room Air Weight: 114 kg Body Mass Index (BMI) 37.0 Intake & Output: Intake and Output for Last 24 Hours 06/19/22 06/20/22 06/21/22 23:59 23:59 23:59 Intake Total 503.75 / 503.75 184.02 / 184.02 Output Total 1175 / 1175 500 / 500 500 / 500 Balance -671.25 / -671.25 -500 / -500 -315.98 / -315.98 Lab / Micro Data Result Diagrams: 06/21/22 05:40 06/21/22 05:40 Labs: Laboratory Results - last 24 hr 06/21/22 05:40: WBC 4.9, RBC 2.89 L, Hgb 7.9 L, Hct 27.3 L, MCV 94.5 H, MCH 27.3, MCHC 28.9 L, RDW Std Deviation 62.2 H, RDW Coeff of [place] 17.8 H, Plt Count 227, MPV 10.7, Immature Gran % (Auto) 0.400, Neut % (Auto) 63.8, Lymph % (Auto) 13.6 L, [place] % (Auto) 16.3 H, Eos % (Auto) 4.9, Baso % (Auto) 1.0, Absolute Neuts (auto) 3.1, Absolute Lymphs (auto) 0.66 L, Nucleated RBC % 0 06/21/22 05:40: Sodium 138, Potassium 3.9, Chloride 109 H, Carbon Dioxide 18.0 L, Anion Gap 11, BUN 77 H, Creatinine 7.19 H, Estim Creat Clear Calc 15.16, Est GFR (MDRD) Af Amer 12 L, Est GFR (MDRD) Non-Af 10 L, BUN/Creatinine Ratio 10.7, Glucose 100, Calcium 8.7 Radiography Diagnostic Testing: Radiology Impression Chest X-Ray 06/21/22 10:11 IMPRESSION: The tip of the right-sided double-lumen catheter is at the junction of the superior vena cava and right atrium. Mild degree of vascular congestion and cardiomegaly. Electronically Signed: Matt Harris MD at 11:09 EST , Rhythm Strip Rhythm Strip: Sinus Rhythm Rate: 98 Ectopy: None Physical Exam Narrative Alert and oriented x3, no apparent distress S1, S2, RRR Lung sounds clear Pitting edema noted to bilateral lower legs, thighs and extending into scrotum Tunneled HD catheter right chest dressing clean, dry and intact Neuro Sensorium / Orientation: awake and alert Assessment & Plan Assessment/Plan (1) JULIANNA (acute kidney injury): PLAN: - New ESRD. Patient had tunneled HD catheter placed today and undergo dialysis over 2 hours today. Discussed with social service technician and discharge planning team, patient to have dialysis arranged at [facility]. Can stop Lasix drip once dialysis is started. Hopefully we will see better blood pressure control as volume is better controlled/improves with dialysis. Continue amlodipine, Cardura, labetalol, minoxidil, Aldactone and hydralazine. Hemoglobin is 7.9, patient will receive iron and MICHELLE at kidney Center. -Once dialysis arranged and confirmed okay for discharge per nephrology. We will follow-up with patient at kidney Center. (2) Accelerated hypertension:
[2022-06-21] MEDS: Acetaminophen 325 MG Tablet 650 MG PO (11:21)
[2022-06-21] MEDS: ARIPiprazole 10 MG Tablet 60 MG PO (11:22)
[2022-06-21] MEDS: Aspirin E.C. 81 MG Tablet PO (11:22)
--- NOTE | 2022-06-21 12:30 | CASEMGMT ---
MARGARITA DURAN updated by hospitalist and admissions supervisor that discharge is planned for tomorrow. MARGARITA DURAN called Selena at [facility] to see if patient is able to come to HD tomorrow. Patient is on schedule for tomorrow. MARGARITA DURAN in to update patient. Patient states he will need ride home from hospital but will be able to drive himself to HD. MARGARITA DURAN updated Body Component Engineer to request hospital van for transport home tomorrow morning. Per Penny, hospital van can pick him up tomorrow at 10am. MARGARITA DURAN updated patient and hospitalist. CM will continue to follow this patient and plan for a safe discharge.
--- NOTE | 2022-06-21 12:34 | NURSING ---
RENEE De La O asked me to call the Hospital Van to set up transport for tomorrow. PT will be picked up by the Hospital van at 10am tomorrow 06-22-22.
--- NOTE | 2022-06-21 17:20 | DIALYSIS ---
Hemodialysis x2.5 hours completed at 1630 on a 3K bath, 1st treatment, tolerated well, UF 1000mL, CritLine maintained profile A, post dialysis BP 143/75, accessed via right chest tunneled dialysis catheter, worked well, small amount of blood under dressing, dressing changed
[2022-06-21] MEDS: traMADol 50 MG Tablet PO (18:18)
--- NOTE | 2022-06-21 18:22 | PN.HOSP_ITS ---
Reason for Visit Reason for Visit: Diagnoses Essential (primary) hypertension (06/17/22) Hypertensive emergency (06/17/22) Acute on chronic diastolic (congestive) heart failure (06/17/22) Acute kidney failure, unspecified (06/17/22) Chronic kidney disease, stage 4 (severe) (06/17/22) Subjective Subjective Patient was seen and examined today, he underwent insertion of a tunneled dialysis catheter today and he is being dialyzed today. Patient has a dialysis chair appointment tomorrow, he needs to leave at 10 AM tomorrow to go home to get his car in order to make the dialysis appointment. Patient has no complaints of any shortness of breath at this time, he is undergoing dialysis at the time of my examination and appears comfortable. Objective Data Objective Data Vital Signs: Vital Signs Temp Pulse Resp BP Pulse Ox O2 Del Method O2 Flow Rate 97.9 F 91 16 116/76 99 Room Air 2 06/21/22 18:16 06/21/22 18:20 06/21/22 18:16 06/21/22 18:20 06/21/22 18:16 06/21/22 18:16 06/21/22 10:30 Oxygen Flow Rate (L/min) 2 Oxygen Delivery Method Room Air Weight: 114.2 kg Body Mass Index (BMI) 37.0 Intake & Output: Intake and Output for Last 24 Hours 06/19/22 06/20/22 06/21/22 23:59 23:59 23:59 Intake Total 503.75 / 503.75 184.02 / 184.02 Output Total 1175 / 1175 500 / 500 1500 / 1500 Balance -671.25 / -671.25 -500 / -500 -1315.98 / -1315.98 Lab / Micro Data Result Diagrams: 06/21/22 05:40 06/21/22 05:40 Labs: Laboratory Results - last 24 hr 06/21/22 05:40: WBC 4.9, RBC 2.89 L, Hgb 7.9 L, Hct 27.3 L, MCV 94.5 H, MCH 27.3, MCHC 28.9 L, RDW Std Deviation 62.2 H, RDW Coeff of [place] 17.8 H, Plt Count 227, MPV 10.7, Immature Gran % (Auto) 0.400, Neut % (Auto) 63.8, Lymph % (Auto) 13.6 L, [place] % (Auto) 16.3 H, Eos % (Auto) 4.9, Baso % (Auto) 1.0, Absolute Neuts (auto) 3.1, Absolute Lymphs (auto) 0.66 L, Nucleated RBC % 0 06/21/22 05:40: Sodium 138, Potassium 3.9, Chloride 109 H, Carbon Dioxide 18.0 L , Anion Gap 11, BUN 77 H, Creatinine 7.19 H, Estim Creat Clear Calc 15.16, Est GFR (MDRD) Af Amer 12 L, Est GFR (MDRD) Non-Af 10 L, BUN/Creatinine Ratio 10.7, Glucose 100, Calcium 8.7 Radiography Diagnostic Testing: Radiology Impression Chest X-Ray 06/21/22 10:11 IMPRESSION: The tip of the right-sided double-lumen catheter is at the junction of the superior vena cava and right atrium. Mild degree of vascular congestion and cardiomegaly. Electronically Signed: Matt Harris MD at 11:09 EST , Rhythm Strip Rhythm Strip: Sinus Rhythm Rate: 98 Ectopy: None Physical Exam Narrative alert, oriented x3, no apparent distress and healthy appearing General Appearance: cooperative, well kempt and well developed Orientation / Consciousness: awake, oriented to person, oriented to place and oriented to time HEENT normocephalic, head/scalp atraumatic and moist oral mucous membranes Eyes PERRL, EOMs intact bilaterally and conjunctivae normal Neck supple, no JVD, thyroid normal and no carotid bruits General: trachea midline Resp normal respiratory effort, no retractions, no use of accessory muscles and clear to auscultation bilaterally Auscultation: Negative for rales, rhonchi or wheezes Cardio regular rate, regular rhythm, S1 normal heart sound, S2 normal heart sound, no murmurs, no rub and no gallops GI normal to inspection, nondistended, normoactive bowel sounds, soft to palpation, non-tender and non-distended Extremity Extremity Narrative: Patient has generalized edema in the legs and scrotal area Skin no rashes or lesions noted General Skin Exam: no breakdown Neuro oriented x3, CN's II-XII intact bilaterally, no focal motor deficits and no sensory deficits noted Sensorium / Orientation: awake and alert Speech: speech normal Psych affect normal Assessment & Plan Assessment/Plan (1) JULIANNA (acute kidney injury): (2) CKD (chronic kidney disease) stage 4, GFR 15-29 ml/min: PLAN: Plan 1. Anasarca-most probably secondary to noncompliance with medications, patient had tunneled dialysis catheter placed today and he received dialysis #2 acute kidney injury on a backdrop of stage V chronic kidney disease-patient received dialysis today #3 uncontrolled hypertension-probably secondary to noncompliance with medications, patient's blood pressure is under adequate control at this time #4 bipolar disorder-complicates care, medical course, recovery, and prognosis #5 multiple sclerosis-complicates care, medical course, recovery, and prognosis #6 elevated troponin-secondary to chronic kidney disease, I do not feel the patient has had a non-STEMI Total clinical time spent by myself addressing the patient's medical issues, reviewing all the data, and collaborating with patient's care team: 35 minutes Charges/Coding Visit Charges Inpatient E&M: 24110 Subs Hosp L2
[2022-06-21] MEDS: Doxazosin 4 MG Tablet PO (20:55)
[2022-06-22 01:01] VITALS: BP 126/73; PULSE 89; RESP 18; TEMP 36.4; O2SAT 98
[2022-06-22 04:50] VITALS: BP 147/70; PULSE 87; RESP 18; TEMP 36.7; O2SAT 100
[2022-06-22 07:15] VITALS: O2SAT 97
--- NOTE | 2022-06-22 08:27 | PCM.PN.SRG ---
Subjective Subjective Patient seen and examined during AM rounds. (Additionally saw patient last evening for a quick postoperative check). Yesterday patient had completed first dialysis session uneventfully. telecommunications technician confirmed the catheter worked well for this purpose. Today patient reports some mild soreness about his catheter site, but otherwise is doing well. He reports that he must be discharged by 10 AM in order to make a dialysis appointment later today. Objective Data Objective Data Vital Signs: Vital Signs Temp Pulse Resp BP Pulse Ox O2 Del Method O2 Flow Rate 98.1 F 87 18 147/70 H 97 Room Air 2 06/22/22 04:50 06/22/22 04:50 06/22/22 04:50 06/22/22 04:50 06/22/22 07:15 06/22/22 07:15 06/21/22 10:30 Oxygen Flow Rate (L/min) 2 Oxygen Delivery Method Room Air Weight: 252 lb 13.923 oz Body Mass Index (BMI) 37.0 Intake & Output: Intake and Output for Last 24 Hours 06/20/22 06/21/22 06/22/22 23:59 23:59 23:59 Intake Total 184.02 / 184.02 Output Total 500 / 500 1500 / 1500 Balance -500 / -500 -1315.98 / -1315.98 Lab / Micro Data Result Diagrams: 06/21/22 05:40 06/21/22 05:40 Radiography Diagnostic Testing: Radiology Impression Chest X-Ray 06/21/22 10:11 IMPRESSION: The tip of the right-sided double-lumen catheter is at the junction of the superior vena cava and right atrium. Mild degree of vascular congestion and cardiomegaly. Electronically Signed: Matt Harris MD at 11:09 EST , Rhythm Strip Rhythm Strip: Sinus Rhythm Rate: 98 Ectopy: None Physical Exam Const oriented x3 and no apparent distress Chest Chest Narrative: Appropriate?appearing tunneled hemodialysis catheter with new chlorhexidine dressing. Bleeding from tunneling site appears to have stopped. Patient expresses some tenderness with palpation directly over catheter. Anchoring sutures remain intact. Resp normal respiratory effort Assessment & Plan Assessment/Plan (1) CKD (chronic kidney disease) stage 4, GFR 15-29 ml/min: PLAN: This 27-year-old male postoperative day 1 from insertion of right IJ tunneled hemodialysis catheter. His first dialysis session was completed yesterday uneventfully. Anticipated discharge later today for ongoing dialysis needs. Patient doing well and have encouraged him to look into fistula creation following hospital discharge. Surgery to sign off, but remain available should a concern arise.
[2022-06-22 08:30] VITALS: BP 150/88; PULSE 94; RESP 16; TEMP 36.6; O2SAT 100
[2022-06-22] MEDS: ARIPiprazole 10 MG Tablet 60 MG PO (08:43)
[2022-06-22] MEDS: traMADol 50 MG Tablet PO (08:43)
[2022-06-22 08:44] VITALS: BP 150/88; PULSE 94
[2022-06-22] MEDS: Pantoprazole Sodium 40 MG Tablet PO (08:44)
[2022-06-22] MEDS: Spironolactone 50 MG Tablet PO (08:44)
[2022-06-22] MEDS: Labetalol 200 MG Tablet PO (08:44)
[2022-06-22] MEDS: Minoxidil 2.5 MG Tablet 5 MG PO (08:44)
[2022-06-22] MEDS: amLODIPine 5 MG Tablet PO (08:44)
[2022-06-22] MEDS: hydrALAZINE 50 MG Tablet 100 MG PO (08:44)
[2022-06-22] MEDS: Aspirin E.C. 81 MG Tablet PO (08:45)
--- NOTE | 2022-06-22 08:45 | DCINST_ITS ---
Discharge Instructions Diet Discharge Diet: No restrictions Activity Discharge Activity: Return to Normal Activity Weight Bearing Status: Full weight bearing Follow Up Care Test Results: Test results from this visit will be discussed in further detail at your follow- up appointment, if applicable. Discharge Plan Admission Admit Date/Time: 06/17/22 20:53 Primary Reason for Your Visit: Uncontrolled hypertension, renal failure Attending Provider: Jarrett Diego Primary Care Provider: Linn Ware Consulting Providers: Stephon Guevara ; Amy Prajapati ; Neftali Abraham Instructions Additional Instructions / Restrictions: Keep your dialysis appointment today Discharge Orders/Prescriptions Prescriptions: New hydralazine 50 mg Tablet 100 mg PO 4X/DAY Qty: 120 0RF Continued aripiprazole 30 mg tablet 60 mg PO DAILY Qty: 60 2RF amlodipine 5 mg tablet 5 mg PO BID Qty: 60 2RF aspirin 81 mg tablet,delayed release (DR/EC) 81 mg PO BREAKFAST Qty: 30 2RF bumetanide 2 mg tablet 2 mg PO BID Qty: 60 2RF doxazosin 4 mg tablet 4 mg PO QHS Qty: 30 2RF labetalol 200 mg tablet 200 mg PO TIDCM Qty: 90 2RF minoxidil 2.5 mg tablet 5 mg PO DAILY Qty: 60 2RF omeprazole 40 mg capsule,delayed release(DR/EC) 40 mg PO DAILY Qty: 30 2RF sennosides-docusate sodium [Stool Softener-Stimulant Laxat] 8.6-50 mg tablet 2 tab PO BID PRN PRN (Reason: Constipation) Qty: 60 0RF cholecalciferol (vitamin D3) 1,250 mcg (50,000 unit) capsule 1,250 mcg PO QWEEK Qty: 12 0RF Discontinued hydralazine 50 mg tablet 50 mg PO TID Qty: 90 2RF spironolactone 50 mg tablet 50 mg PO DAILY Qty: 30 2RF Referrals / Follow Up: Linn Ware MD [Primary Care Provider] - Within 2 Weeks Amy Prajapati MD [Med Staff - Consulting] - See Referral Note (As scheduled) Disposition Disposition (needs filled in before D/C Order can be placed): Home, Self Care
--- NOTE | 2022-06-22 09:25 | PHA.DC.MR ---
Pharmacy Service has performed discharge medication reconciliation for this patient. The patient's discharge medication list was reviewed for discrepancies and discrepancies were resolved. Home Medications amlodipine 5 mg tablet 5 mg PO BID BLOOD PRESSURE #60 tabs 05/25/22 aripiprazole 30 mg tablet 60 mg PO DAILY #60 tabs 05/25/22 aspirin 81 mg tablet,delayed release [address] [facility] #30 tabs 05/25/22 bumetanide 2 mg tablet 2 mg PO BID #60 tabs 05/25/22 doxazosin 4 mg tablet 4 mg PO QHS BLOOD PRESSURE #30 tabs 05/25/22 labetalol 200 mg tablet 200 mg PO TIDCM BLOOD PRESSURE #90 tabs 05/25/22 minoxidil 2.5 mg tablet 5 mg PO DAILY #60 tabs 05/25/22 omeprazole 40 mg capsule,delayed release 40 mg PO DAILY ACID REFLUX #30 caps 05/25/22 sennosides 8.6 mg-docusate sodium 50 mg tablet (Stool Softener-Stimulant Laxative) 2 tab PO BID PRN PRN Constipation #60 tabs 05/25/22 cholecalciferol (vitamin D3) 1,250 mcg (50,000 unit) capsule 1,250 mcg PO QWEEK #12 caps 05/26/22 hydralazine 50 mg tablet 100 mg PO 4X/DAY #120 tabs 06/22/22
--- NOTE | 2022-07-04 09:51 | DS.PCM_ITS ---
Providers Date of Admission: 06/17/22 Date of Discharge: 06/22/22 Primary Care Physician: Dr. Linn Ware MD Consultations 06/18/22 09:45 Consult: Nephrology Routine Consulting Provider: Amy Prajapati Reason for Consult: Increased creatnine EMERGENT Consult: No Notified: Yes Date Notified: 06/18/22 Time Notified: 09:45 Method of Notification: Answering Service 06/19/22 20:39 Consult: General Surgery Routine Consulting Provider: Neftali Abraham Reason for Consult: Tunnel Cath placement for renal failure EMERGENT Consult: No Notified: Yes Date Notified: 06/19/22 Time Notified: 15:00 Method of Notification: Verbal Comments:: Dr Barger notified Reason For Visit: ACUTE ON CHRONIC HEART FAILURE W/ PRESERVED EF Diagnosis Discharge Diagnosis (1) JULIANNA (acute kidney injury): Status: Acute Code(s): N17.9 - Acute kidney failure, unspecified (2) CKD (chronic kidney disease) stage 4, GFR 15-29 ml/min: Status: Chronic Code(s): N18.4 - Chronic kidney disease, stage 4 (severe) Plan 1. Anasarca-most probably secondary to noncompliance with medications for stage V chronic kidney disease and uncontrolled hypertension, patient had tunneled dialysis catheter placed today and he received dialysis #2 acute kidney injury on a backdrop of stage V chronic kidney disease-patient received dialysis today #3 uncontrolled hypertension-probably secondary to noncompliance with medications, patient's blood pressure is under adequate control at this time #4 bipolar disorder-complicates care, medical course, recovery, and prognosis #5 multiple sclerosis-complicates care, medical course, recovery, and prognosis #6 elevated troponin-secondary to chronic kidney disease, I do not feel the patient has had a non-STEMI Total clinical time spent by myself addressing the patient's medical issues, reviewing all the data, and collaborating with patient's care team: 35 minutes Medications at Discharge Home Medications amlodipine 5 mg tablet 5 mg PO BID BLOOD PRESSURE #60 tabs 05/25/22 aripiprazole 30 mg tablet 60 mg PO DAILY #60 tabs 05/25/22 aspirin 81 mg tablet,delayed release 81 mg PO BREAKFAST [facility] #30 tabs 05/25/22 bumetanide 2 mg tablet 2 mg PO BID #60 tabs 05/25/22 doxazosin 4 mg tablet 4 mg PO QHS BLOOD PRESSURE #30 tabs 05/25/22 labetalol 200 mg tablet 200 mg PO TIDCM BLOOD PRESSURE #90 tabs 05/25/22 minoxidil 2.5 mg tablet 5 mg PO DAILY #60 tabs 05/25/22 omeprazole 40 mg capsule,delayed release 40 mg PO DAILY ACID REFLUX #30 caps 05/25/22 sennosides 8.6 mg-docusate sodium 50 mg tablet (Stool Softener-Stimulant Laxative) 2 tab PO BID PRN PRN Constipation #60 tabs 05/25/22 cholecalciferol (vitamin D3) 1,250 mcg (50,000 unit) capsule 1,250 mcg PO QWEEK #12 caps 05/26/22 hydralazine 50 mg tablet 100 mg PO 4X/DAY #120 tabs 06/22/22 Hospital Course Operations None Procedures - (Insertion of tunneled dialysis catheter) Summary of Care Provided Minutes Spent on Discharge: 32 Hospital Course: This 27-year-old black male was seen in the emergency room at [facility] with complaints of generalized edema, he has a history of chronic kidney disease stage IV with hypertension. Patient stated that within the last 48 hours prior to coming to the ER he had a 40 pound weight gain, patient had been short of breath with exertion and had complained of some shortness of parth ath at night while sleeping. In the emergency room, patient's blood pressure was noted to be severely elevated at 235/154, patient was not hypoxic, he did exhibit some tachypnea. There was noted to be significant bilateral peripheral edema, CBC showed hemoglobin of 9.8 and a CMP showed a significant worsening creatinine at 6.17. Patient was treated with IV labetalol and IV Lasix and given a dose of clonidine and then placed on Nitropaste. Patient had been in the hospital in April 2022 for a similar presentation and was seen at that time by nephrology. Patient was admitted to the hospital, he was placed on medications for his blood pressure and IV diuresis, he was seen in consultation by nephrology, despite his IV diuresis his kidney function declined and it was felt that the patient should undergo dialysis. A tunneled catheter was placed and the patient underwent dialysis and outpatient appointments were set up for him to continue dialysis as an outpatient. Patient's blood pressure responded to medications, this examiner believes he was not taking his medications as directed as an outpatient. On 06/22/2022, patient was seen and examined: On examination he appeared in good health and spirits. Vital signs as documented. Skin warm and dry and without overt rashes. Neck without JVD, neck was supple, trachea midline, thyroid was normal. Lungs clear bilaterally, normal air movement was noted. Heart exam notable for regular rhythm, normal sounds and absence of murmurs, rubs or gallops. Abdomen unremarkable and without evidence of organomegaly, masses, or abdominal aortic enlargement. Bowel sounds are present, abdomen is not distended. Extremities-generalized lower extremity edema was noted, no cyanosis was noted, no clubbing was noted. Neuro: Cranial nerves II through XII are grossly intact, no focal motor deficits were noted, sensation to light touch and pinprick intact, motor exam 5/5 throughout. Psych: Patient is alert and oriented x3, he does not appear anxious or depressed, he does not appear agitated. Patient was discharged in stable condition on 06/22/2022. Weight / BMI Weight Weight: 114.7 kg Body Mass Index (BMI) 37.0 ABG / Lab / Microbiology Data Result Diagrams: 06/21/22 05:40 06/21/22 05:40 D/C Instructions Discharge Diet: No restrictions Weight Bearing Status: Full weight bearing Meaningful Use Info Meaningful Use Diagnoses (Choose all that apply): None applicable Discharge Plan Admission Admit Date/Time: 06/17/22 20:53 Primary Reason for Your Visit: Uncontrolled hypertension, renal failure Attending Provider: Jarrett Diego Primary Care Provider: Linn Ware Consulting Providers: Stephon Guevara ; Amy Prajapati ; Neftali Abraham Instructions Additional Instructions / Restrictions: Keep your dialysis appointment today Discharge Orders/Prescriptions Prescriptions: New hydralazine 50 mg Tablet 100 mg PO 4X/DAY Qty: 120 0RF Continued aripiprazole 30 mg tablet 60 mg PO DAILY Qty: 60 2RF amlodipine 5 mg tablet 5 mg PO BID Qty: 60 2RF aspirin 81 mg tablet,delayed release (DR/EC) 81 mg PO BREAKFAST Qty: 30 2RF bumetanide 2 mg tablet 2 mg PO BID Qty: 60 2RF doxazosin 4 mg tablet 4 mg PO QHS Qty: 30 2RF labetalol 200 mg tablet 200 mg PO TIDCM Qty: 90 2RF minoxidil 2.5 mg tablet 5 mg PO DAILY Qty: 60 2RF omeprazole 40 mg capsule,delayed release(DR/EC) 40 mg PO DAILY Qty: 30 2RF sennosides-docusate sodium [Stool Softener-Stimulant Laxat] 8.6-50 mg tablet 2 tab PO BID PRN PRN (Reason: Constipation) Qty: 60 0RF cholecalciferol (vitamin D3) 1,250 mcg (50,000 unit) capsule 1,250 mcg PO QWEEK Qty: 12 0RF Discontinued hydralazine 50 mg tablet 50 mg PO TID Qty: 90 2RF spironolactone 50 mg tablet 50 mg PO DAILY Qty: 30 2RF Referrals / Follow Up: Linn Ware MD [Primary Care Provider] - 06/29/22 9:30 am Amy Prajapati MD [Med Staff - Consulting] - See Referral Note (As scheduled) Disposition Disposition (needs filled in before D/C Order can be placed): Home, Self Care Charges/Coding Visit Charges Inpatient E&M: 55635 Disch Hosp >30min
== END 2022-06-22 09:54 | disposition home or self-care (01) | DRG 469 ==
LOC: ED 18:59 → ICU 06-18 07:06 → PCU 06-20 09:02 → ICU 06-20 10:26 → PCU 06-20 10:27
PROVIDERS: Anesthesiology; Nurse Practitioner Adult Health; Surgery; Admitting Provider Hospitalist; Emergency Provider Emergency Medicine; PCP Internal Medicine; Visit Provider Internal Medicine
PROC: 0JH63XZ Insertion of Tunneled Vascular Access Device into Chest Subcutaneous Tissue and Fascia, Percutaneous Approach (ICD-10-PCS; principal; 2022-06-21 08:15)
DX: N17.9 Acute kidney failure, unspecified (principal); I50.33 Acute on chronic diastolic (congestive) heart failure; I13.2 Hypertensive heart and chronic kidney disease with heart failure and with stage 5 chronic kidney disease, or end stage renal disease; G35 Multiple sclerosis; F31.9 Bipolar disorder, unspecified; N18.5 Chronic kidney disease, stage 5; K21.9 Gastro-esophageal reflux disease without esophagitis; F17.290 Nicotine dependence, other tobacco product, uncomplicated; I16.1 Hypertensive emergency; Z79.82 Long term (current) use of aspirin; Z79.899 Other long term (current) drug therapy
CPT/HCPCS: 36415; 71045; 77001; 80048; 83735; 83880; 84484; 85025; 87340; 90937; 93005; 99285; 99406; J7040; A4216; G0257; J1940; J2405

== ENCOUNTER → 2022-06-27 | Outpatient (CLI) | payer MEDICAID, SELFPAY ==
--- NOTE | 2022-06-27 09:57 | VDUE_ITS ---
Reason For Study: eval for AV access Right Arm Left Arm Cephalic vein demonstrates chronic vein wall Cephalic vein is compressible with pulsatile thikening at the antecubital space with venous flow noted. pulsatile venous flow noted. Left Cephalic Vein at the shoulder Right Cephalic Vein at the shoulder measures .2 x .21 cm. measures .21 x .24 cm. Left Cephalic Vein at mid bicep measures .14 Right Cephalic Vein mid bicep measures .12 x .15 cm. x .14 cm. Left Cephalic Vein above antecub Right Cephalic Vein above antecub measures .16 x .18 cm. measures .07 x .08 cm. Left Cephalic Vein below antecub Right Cephalic Vein below antecub measures .12 x .15 cm. measures .22 x .28 cm. Left Cephalic Vein in the forearm Right Cephalic Vein in the forearm measures .12 x .12 cm. measures .08 x .1 cm. Left Cephalic Vein at the wrist measures .13 Right Cephalic Vein at the wrist x .15 cm. measures .08 x .11 cm. Basilic vein is compressible with pulsatile Basilic vein is compressible with pulsatile venous flow noted. venous flow noted. Brachial artery .57 x .67 cm. Brachial artery .55 x .61 cm. Brachial artery 74.6 cm/s. Brachial artery 51.9 cm/s. Radial artery .25 x .28 cm. Radial artery .28 x .28 cm. Radial artery 48.3 cm/s. Radial artery 74.6 cm/s. Basilic vein at bicep measures .28 x .28 cm. Right Basilic Vein mid bicep measures .27 Basilic vein above antecub measures .28 x .32 cm. x .31 cm. Right Basilic Vein above antecub Basilic vein below antecub measures .1 x .12 measures .18 x .22 cm. cm. Right Basilic Vein below antecub Basilic vein in the forearm measures .16 measures .19 x .23 cm. x .17 cm. Right Basilic Vein in the forearm Basilic vein at the wrist measures .06 x .08 measures .12 x .13 cm. cm. Right Basilic Vein at the wrist measures .07 x .07 cm. VL/Dialysis Vein Map PRE-OP BILAT Interpretation Summary Bilateral upper extremity cephalic and basilic veins have dimensions as noted. Most pertinently is that there is pulsatile venous flow in bilateral cephalic veins suspicious for proximal venous hypertension or obstruction. Pulsatile flow is identified in bilateral basilic veins as well. Clinical correlation would be indicated. This patient may not be a candidate fo r arteriovenous fistula creation Bilateral radial and brachial arteries have normal diameter and flow Ordering Physician: Nancy Pinzon Performed By: Marcello Garcia RVT ???
== END | disposition home or self-care (01) ==
LOC: CVS 09:55
PROVIDERS: PCP Internal Medicine; Visit Provider Nurse Practitioner Adult Health
DX: Z01.818 Encounter for other preprocedural examination (principal); N18.6 End stage renal disease
CPT/HCPCS: 93985

== ENCOUNTER → 2022-07-19 | Outpatient (CLI) | payer MEDICAID, SELFPAY ==
--- NOTE | 2022-07-19 07:45 | US_ITS ---
EXAM: US Abdomen Limited (quadrant) HISTORY: Distention, possible ascites COMPARISON: None FINDINGS: Sonographic evaluation of the abdomen does not show evidence of a significant amount of anechoic ascites. There was not enough fluid present to perform a paracentesis. Limited evaluation of the liver and spleen show no abnormalities. US/Abdomen Limited IMPRESSION: Not enough anechoic ascites for paracentesis Electronically Signed: Wai Solares MD at 9:37 EDT ,
[2022-07-19 08:13] VITALS: BP 197/135; PULSE 106; RESP 18; TEMP 36.6; O2SAT 98
== END | disposition home or self-care (01) ==
PROVIDERS: PCP Internal Medicine; Visit Provider Internal Medicine
DX: R18.8 Other ascites (principal)
CPT/HCPCS: 76705

== ENCOUNTER 2022-11-14 05:47 | Day surgery (SDC) | payer MEDICAID, SELFPAY ==
--- NOTE | 2022-11-11 07:12 | EKG12_ITS ---
Test Reason : PREOP Blood Pressure : / mmHG Vent. Rate : 092 BPM Atrial Rate : 092 BPM P-R Int : 142 ms QRS Dur : 086 ms QT Int : 418 ms P-R-T Axes : 029 040 015 degrees QTc Int : 516 ms Normal sinus rhythm Prolonged QT Abnormal ECG Confirmed by NANY HAYS, NEREYDA ([id number]), newspaper managing editor JARAD ESTRADA ([id number]) on 11/14/2022 1:10:38 PM Referred By: Avery Rowell Confirmed By:FRANCK AYON MD
[2022-11-11 07:46] LABS: Hematocrit 32.2 % (40-54); Hemoglobin 10.5 g/dL (13.0-16.5); Mean Corp Hgb Conc 32.6 g/dL (32-36); Mean Corpuscular Hgb 31.1 pg (27.0-32.0); Mean Corpuscular Volume 95.3 fL (80-94); Mean Platelet Vol. 10.4 fl (6.2-12.0); Platelet Count 265 K/mm3 (150-450); RBC Distribution Width CV 13.8 % (11.6-14.6); RBC Distribution Width SD 48.6 fl (35.1-43.9); Red Blood Count 3.38 M/mm3 (4.6-6.2); White Blood Count 6.8 K/mm3 (4.4-11.0)
[2022-11-11 08:19] LABS: Anion Gap 10 (5-15); BUN 41 mg/dL (7-18); BUN/Creat Ratio 5.4 RATIO (10-20); Chloride 101 mmol/L (98-107); Creatinine, Serum 7.61 mg/dL (0.70-1.30); EST Glomerular Filtration Rate 9 mL/min (>60); Est Glom Filt Rate - Afr Amer 11 mL/min (>60); Glucose 113 mg/dL (74-106); Potassium 3.5 mmol/L (3.5-5.1); Sodium Level 134 mmol/L (136-145)
[2022-11-14] VITALS (9 sets, daily range): BP systolic 139–167; BP diastolic 81–108; PULSE 83–92; RESP 16–18; TEMP 36.6–36.9; O2SAT 98–100; BMI 33.3
--- NOTE | 2022-11-14 06:51 | PCM.HP.BLA ---
History and Physical Date of Admission: 11/14/22 Allergies No Known Allergies Allergy (Verified 09/27/22 06:53) Medications sennosides 8.6 mg-docusate sodium 50 mg tablet (Stool Softener-Stimulant Laxative) 2 tab PO BID PRN PRN Constipation #60 tabs 05/25/22 [Rx Confirmed 10/19/22] cholecalciferol (vitamin D3) 1,250 mcg (50,000 unit) capsule 1,250 mcg PO QWEEK #12 caps 05/26/22 [Rx Confirmed 10/19/22] aspirin 81 mg tablet,delayed release 81 mg PO BREAKFAST [facility] #30 tabs 07/05/22 [Rx Confirmed 10/19/22] bumetanide 2 mg tablet 2 mg PO BID #60 tabs 07/05/22 [Rx Confirmed 10/19/22] hydralazine 50 mg tablet 100 mg PO 4X/DAY #120 tabs 07/05/22 [Rx Confirmed 10/19/22] labetalol 200 mg tablet 200 mg PO TIDCM BLOOD PRESSURE #90 tabs 07/05/22 [Rx Confirmed 10/19/22] minoxidil 2.5 mg tablet 5 mg PO DAILY #60 tabs 07/05/22 [Rx Confirmed 10/19/22] omeprazole 40 mg capsule,delayed release 40 mg PO DAILY ACID REFLUX #30 caps 07/05/22 [Rx Confirmed 10/19/22] amlodipine 10 mg tablet 10 mg PO BID BLOOD PRESSURE #180 tabs 07/21/22 [Rx Confirmed 10/19/22] doxazosin 8 mg tablet 8 mg PO QHS BLOOD PRESSURE #90 tabs 07/21/22 [Rx Confirmed 10/19/22] clonidine 0.3 mg/24 hr weekly transdermal patch 1 patch transdermal QWEEK #4 ea 08/02/22 [Rx Confirmed 10/19/22] doxepin 10 mg capsule 10 mg PO QHS PRN sleep #30 caps 09/27/22 [Rx Confirmed 10/19/22] lurasidone 20 mg tablet 20 mg PO QPM #30 tabs 09/27/22 [Rx Confirmed 10/19/22] PFSH Medical History (Updated 09/27/22 @ 07:[address] Trenton Fung, DO) Acute on chronic heart failure with preserved ejection fraction Bipolar 1 disorder Bleach ingestion CHF (congestive heart failure) Chronic kidney disease (CKD) stage G4/A3, severely decreased glomerular filtration rate (GFR) between 15-29 mL/min/1.73 square meter and albuminuria creatinine ratio greater than 300 mg/g CKD (chronic kidney disease) stage 4, GFR 15-29 ml/min CVA (cerebral vascular accident) Elevated d-dimer GERD (gastroesophageal reflux disease) GI bleed Hypertension Insomnia Irritable bowel syndrome (IBS) Multiple sclerosis PUD (peptic ulcer disease) Suicide gesture Tobacco abuse Vision problems Surgical History H/O left knee surgery Family History Mother Diabetes Hypertension HLD (hyperlipidemia) Anemia Myocardial infarction Heart disease Kidney diseaseFather Hypertension HLD (hyperlipidemia) Bipolar disorder Diabetes Alcoholism Arthritis Depression Mental disorderOther CVA (cerebral vascular accident) Social History household members: none current occupational status: unemployed 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 Patient denies any recent hospitalizations or illnesses since his last visit with our office in July. He has been working with his assistant women's soccer coach and parent educator to improve management on his hypertension. Optimization has been obtained and patient is ready to proceed with surgical creation of the fistula. Patient notes a history of heart failure and a previous stroke approximately 1 year ago. He notes his remaining deficit is loss of vision in his right eye. Patient denies any current chest pain or shortness of breath. Patient is currently on dialysis. Patient denies any previous complications or side effects from anesthesia. Patient's previous history per Dr. Rowell: 27-year-old gentleman is referred for surgical consideration for creation of arteriovenous hemodialysis fistula.? The patient's had a internal jugular hemodialysis catheter placed by Dr. Neftali dewey on June 21, 2022.? The patient has been previously hospitalized for hypertension as of emergency and heart failure.? 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 It is of note that the patient's blood pressure today is 218/155.? He states that despite having medications added to his treatment that he has not noticed any improvement. On June 27, 2022 he had bilateral extremity duplex vein mapping.? Reports are as follows and I have personally reviewed the images.? It is of note that the patient was found to have pulsatile flow in bilateral upper extremities.? This would be concerning for proximal venous hypertension or obstruction. Reason For Study: eval for AV access Right Arm? Left Arm Cephalic vein demonstrates chronic vein wall ? Cephalic vein is compressible with pulsatile thikening at the antecubital space with? venous flow noted. pulsatile venous flow noted. ? Left Cephalic Vein at the shoulder Right Cephalic Vein at the shoulder? measures .2 x .21 cm. measures .21 x .24 cm. ? Left Cephalic Vein at mid bicep measures .14 Right Cephalic Vein mid bicep measures .12 ? x .15 cm. x .14 cm.? Left Cephalic Vein above antecub Right Cephalic Vein above antecub? measures .16 x .18 cm. measures .07 x .08 cm. ? Left Cephalic Vein below antecub Right Cephalic Vein below antecub? measures .12 x .15 cm. measures .22 x .28 cm. ? Left Cephalic Vein in the forearm Right Cephalic Vein in the forearm ? measures .12 x .12 cm. measures .08 x .1 cm.? Left Cephalic Vein at the wrist measures .13 Right Cephalic Vein at the wrist ? x .15 cm. measures .08 x .11 cm. ? Basilic vein is compressible with pulsatile Basilic vein is compressible with pulsatile? venous flow noted. venous flow noted. ? Brachial artery .57 x .67 cm. Brachial artery .55 x .61 cm.? Brachial artery 74.6 cm/s. Brachial artery 51.9 cm/s. ? Radial artery .25 x .28 cm. Radial artery .28 x .28 cm.? Radial artery 48.3 cm/s. Radial artery 74.6 cm/s. ? Basilic vein at bicep measures .28 x .28 cm. Right Basilic Vein mid bicep measures .27? Basilic vein above antecub measures .28 x .32 cm.? x .31 cm. Right Basilic Vein above antecub ? Basilic vein below antecub measures .1 x .12 measures .18 x .22 cm. ? cm. Right Basilic Vein below antecub ? Basilic vein in the forearm measures .16 measures .19 x .23 cm. ? x .17 cm. Right Basilic Vein in the forearm? Basilic vein at the wrist measures .06 x .08 measures .12 x .13 cm. ? cm. Right Basilic Vein at the wrist measures .07 x .07 cm. VL/Dialysis Vein Map PRE-OP BILAT Interpretation Summary Bilateral upper extremity cephalic and basilic veins have dimensions as noted. Most pertinently is that there is pulsatile venous flow in bilateral cephalic veins suspicious for proximal venous hypertension or obstruction. Pulsatile flow is identified in bilateral basilic veins as well. Clinical correlation would be indicated. This patient may not be a candidate for arteriovenous fistula creation ? Bilateral radial and brachial arteries have normal diameter and flow ? ? Ordering Physician: Nancy Pinzon Performed By: Marcello Garcia RVT Exam Const General: cooperative, healthy appearing, comfortable and no acute distress HENNH Head: normal to inspection Eyes General: appearance normal, both eyes and all related structures Neck Neck: normal visual inspection Neck mass: No Chest Other: Right chest tunneled dialysis catheter in place Resp Effort & Inspection: normal respiratory effort Auscultation: clear to auscultation bilaterally Cardio Rate: regular rate Rhythm: regular rhythm GI Inspection: normal to inspection Palpation: soft Auscultation: normal bowel sounds Musc Cervical Spine: normal cervical lordosis Skin General: no rashes or lesions noted Neuro General: no focal motor deficits and CN's II-XI intact bilaterally Extrem General: normal to inspection Psych Appearance: grossly normal Affect: normal affect Assessment and Plan Assessment and Plan (1) JULIANNA (acute kidney injury): Status: Acute Plan: Dr. Rowell will plan to perform a left upper extremity brachial to cephalic arteriovenous creation. Procedure details, risks and benefits have been reviewed. Patient has had the opportunity to ask and have questions answered. Patient verbally understands and agrees with the plan. Patient may continue to take his daily 81 mg aspirin for the procedure. I have examined the patient and the H&P has been reviewed. There are no clinical changes since date of exam. Avery Rowell M.D., F.A.C.S.
--- NOTE | 2022-11-14 06:52 | DCINST_ITS ---
Discharge Instructions Procedure Fistula Diet Discharge Diet: Renal Diet Activity Discharge Activity: May Not Drive (for 2-3 days or while taking narcotic pain medications.), May Shower and May Take a Tub Bath (in 5 days.) Lifting Restrictions: 5 pounds Keep extremity elevated above heart level: - (Keep arm elevated above the heart level for 3 days.) Dressing / Incision Call your doctor if your incision/area has: Continuous Slow Oozing, Sudden Increased Bleeding (apply pressure and call your doctor.), Increased Pain/ Swelling, Increased Redness and Foul Smelling Discharge Call your doctor if you observe: Fever of 101 or Higher Suture Line Care: Avoid Pulling/Pushing and Avoid Pinching/Bending Cleanse incision/area with: Keep Dressing Clean & Dry Additional Dressing/Incision Instructions:: Change or remove dressing in one day. May protect with a gauze bandaid. Follow Up Care Please Follow Up With: Avery Rowell MD When: Call [phone] to make an appointment for suture removal and follow up in 1 week. Test Results: Test results from this visit will be discussed in further detail at your follow- up appointment, if applicable. Discharge Plan Admission Attending Provider: Avery Rowell Primary Care Provider: Linn Ware Discharge Orders/Prescriptions Prescriptions: No Action cholecalciferol (vitamin D3) 1,250 mcg (50,000 unit) capsule 1,250 mcg PO QWEEK Qty: 12 0RF amlodipine 10 mg tablet 10 mg PO BID Qty: 180 3RF doxazosin 8 mg tablet 8 mg PO QHS Qty: 90 3RF doxepin 10 mg capsule 10 mg PO QHS PRN (Reason: sleep) Qty: 30 2RF lurasidone 20 mg tablet 20 mg PO QPM Qty: 30 2RF Rx Instructions: must administer with food (at least 350 calories) hydralazine 50 mg tablet 100 mg PO 4X/DAY Qty: 120 0RF labetalol 200 mg tablet 200 mg PO TIDCM Qty: 90 2RF minoxidil 2.5 mg tablet 5 mg PO DAILY Qty: 60 2RF omeprazole 40 mg capsule,delayed release(DR/EC) 40 mg PO DAILY Qty: 30 2RF aspirin 81 mg tablet,delayed release (DR/EC) 81 mg PO BREAKFAST Qty: 30 2RF clonidine 0.3 mg/24 hr patch weekly 1 patch transdermal QWEEK Qty: 4 12RF Referrals / Follow Up: Linn Ware MD [Primary Care Provider] - Disposition Disposition (needs filled in before D/C Order can be placed): Home, Self Care
[2022-11-14] MEDS: Cefazolin 2 GM in 0.9% Normal Saline 100 ML IV (07:25)
[2022-11-14] MEDS: Lidocaine 1% (20 ml mdv) 20 ML Vial (07:45)
[2022-11-14] MEDS: Bupivacaine Mpf 0.5% 30 ML VIAL (07:45)
[2022-11-14] MEDS: Heparin Injection (Vial) 5,000 UNIT/ML VIAL 5000 UNIT (08:00)
--- NOTE | 2022-11-14 09:20 | OP.PCM_ITS ---
Report of Operation Date of Procedure: 11/14/22 Pre-Operative Diagnosis: Hemodialysis dependent Post-Operative Diagnosis: Same Surgery/Procedure Performed:: Left upper extremity brachial cephalic arteriovenous hemodialysis fistula creation Description of Surgical Findings:: Timeout informed consent was obtained. 27-year-old gentleman was taken to the operating placed upon the table underwent monitored she anesthesia care. Ancef 2 g were given intravenously preoperatively. Clean procedure but the patient has some areas of excoriation. 1% lidocaine mixed 50-50 with 0.5% Marcaine was used as a local anesthetic. Throughout the procedure 25 cc was used. Ultrasound was used to the initiation of the procedure demonstrating that the cephalic vein admittedly was smaller than anticipated but so was the basilic vein. It was thought to possibly be secondary to the patient's blood pressure changes and control. Local was instilled an oblique incision was made in the left distal upper arm close to the antecubital space tedious sharp and blunt dissection was used to identify the cephalic vein which was circumferentially dissected free. Then the brachial artery which was very deeply placed had to be dissected out. All of this dissection was very tedious and difficult. Although the brachial artery had good palpable flow and good texture it was deep. The cephalic vein unfortunately borderline small at its maximum it 3 mm. Patient received 9000 units of heparin. Peripheral vascular clamps were placed on the brachial artery and 11 blade was used to make an arteriotomy the cephalic vein was ligated distally with a Hemoclip the vein was spatulated then end-to-side venous to arterial anastomosis created with a running 7-0 Prolene at the completion hemostasis was intact flow was noted but again the vein is a continued course in the distal upper arm appeared quite small. [place] that in part this was due to spasm and draped some papaverine on it total of a half a cc. At this point did not have him consented for any additional procedures. The structures particularly venous structures very small. The wound was closed with a deep layer of interrupted 3-0 Vicryl subcutaneous sutures and then running subicular 4-0 Monocryl. Steri-Strips Telfa soft roll Fletcher wrap applied. Sponge instrument and needle counts reported to the surgeon to be correct. Specimens none. Drains none. Blood loss 20 cc. He was taken to the recovery room in satisfactory addition. It is felt likely due to structures will not be large enough to support this venous flow. We will see him back in the office for further considerations. Avery Rowell M.D., F.A.C.S. Surgeon: Avery Rowell Type of Anesthesia: Local MAC Anesthesiologist: Wiliam Marcus
== END 2022-11-14 10:59 | disposition home or self-care (01) ==
LOC: SDC 05:47 → AC 05:47
PROVIDERS: PCP Internal Medicine; Referring Provider Surgery; Visit Provider Surgery
PROC: (CPT 36821; principal; 2022-11-14 07:15)
DX: N17.9 Acute kidney failure, unspecified (principal); Z99.2 Dependence on renal dialysis; G35 Multiple sclerosis; I13.0 Hypertensive heart and chronic kidney disease with heart failure and stage 1 through stage 4 chronic kidney disease, or unspecified chronic kidney disease; I50.9 Heart failure, unspecified; F31.9 Bipolar disorder, unspecified; N18.4 Chronic kidney disease, stage 4 (severe); I16.1 Hypertensive emergency; K58.9 Irritable bowel syndrome, unspecified; K21.9 Gastro-esophageal reflux disease without esophagitis; F17.200 Nicotine dependence, unspecified, uncomplicated; Z79.82 Long term (current) use of aspirin
CPT/HCPCS: 36821; 01844; 36415; 80048; 85027; 93005; A4648; J7040

== ENCOUNTER → 2022-12-01 | Outpatient (CLI) | payer MEDICAID, SELFPAY ==
--- NOTE | 2022-12-01 12:36 | AVDS_ITS ---
Reason For Study: Complication of dialysis fistula LEFT Inflow = 71.1 / 7.1cm/s Inflow = 143.6 ml/min Prox Anastomosis = 36.2/5.4 cm/s Prox Anastomosis = 40.6 ml/min Mid and Distal graft is compressible Outflow vein is compressible Proximal graft appears thrombosed and occluded. Preliminary report given to La at [facility]. VL/AV Fistula/Dialysis Graft Scan Interpretation Summary Left brachial artery measures 0.49 x 0.45 cm in diameter Thrombus is noted in the proximal portion of the fistula adjacent to the antecu bital space. Left upper arm basilic vein is patent and compressible although with sluggish f low The left mid to more proximal upper arm basilic vein appears however to be kirk nt and compressible Ordering Physician: Avery Rowell Referring Physician: Avery Rowell Performed By: Chris Meyer RVT
== END | disposition home or self-care (01) ==
LOC: CVS 12:36
PROVIDERS: PCP Internal Medicine; Referring Provider Surgery; Visit Provider Surgery
DX: T82.898A Other specified complication of vascular prosthetic devices, implants and grafts, initial encounter (principal)
CPT/HCPCS: 93990

== ENCOUNTER 2022-12-19 06:04 | Day surgery (SDC) | payer MEDICAID, SELFPAY ==
[2022-12-16 14:13] LABS: Hematocrit 29.5 % (40-54); Hemoglobin 10.2 g/dL (13.0-16.5); Mean Corp Hgb Conc 34.6 g/dL (32-36); Mean Corpuscular Hgb 32.5 pg (27.0-32.0); Mean Corpuscular Volume 93.9 fL (80-94); Mean Platelet Vol. 10.6 fl (6.2-12.0); Platelet Count 234 K/mm3 (150-450); RBC Distribution Width CV 14.6 % (11.6-14.6); RBC Distribution Width SD 48.4 fl (35.1-43.9); Red Blood Count 3.14 M/mm3 (4.6-6.2); White Blood Count 7.3 K/mm3 (4.4-11.0)
[2022-12-16 14:51] LABS: ALB/GLOB Ratio 0.7 RATIO (0.9-2.4); AST(SGOT) 39 U/L (15-37); Alanine Aminotransfer ALT/SGPT 31 U/L (16-61); Albumin, Serum 3.1 g/dL (3.2-5.0); Alkaline Phosphatase 83 U/L (45-117); Anion Gap 9 (5-15); BUN 49 mg/dL (7-18); BUN/Creat Ratio 6.3 RATIO (10-20); Calcium,Total 8.3 mg/dL (8.5-10.1); Chloride 104 mmol/L (98-107); Creatinine, Serum 7.83 mg/dL (0.70-1.30); EST Glomerular Filtration Rate 9 mL/min (>60); Est Glom Filt Rate - Afr Amer 11 mL/min (>60); Globulin 4.6 g/dL (2.2-4.2); Glucose 98 mg/dL (74-106); Potassium 3.9 mmol/L (3.5-5.1); Protein, Total 7.7 g/dL (6.4-8.2); Sodium Level 137 mmol/L (136-145)
[2022-12-19] VITALS (7 sets, daily range): BP systolic 130–142; BP diastolic 75–94; PULSE 79–90; RESP 16–18; TEMP 36.6–37.2; O2SAT 99–100; BMI 31.2
--- NOTE | 2022-12-19 06:31 | PCM.HP.BLA ---
History and Physical Date of Admission: 12/19/22 Allergies No Known Allergies Allergy (Verified 11/14/22 06:43) [facility] Medical History Acute on chronic heart failure with preserved ejection fraction Alcohol use Arthritis Bipolar 1 disorder Bleach ingestion Cardiology follow-up encounter CHF (congestive heart failure) Chronic kidney disease (CKD) stage G4/A3, severely decreased glomerular filtration rate (GFR) between 15-29 mL/min/1.73 square meter and albuminuria creatinine ratio greater than 300 mg/g CKD (chronic kidney disease) stage 4, GFR 15-29 ml/min CVA (cerebral vascular accident) Elevated d-dimer Former smoker GERD (gastroesophageal reflux disease) GI bleed History of echocardiogram History of renal dialysis History of stress test Hypertension Insomnia Irritable bowel syndrome (IBS) Multiple sclerosis PUD (peptic ulcer disease) Suicide gesture Tinnitus Vision problems Wears contact lenses Surgical History Hx of left knee surgery Hx of surgical procedure Family History Mother Diabetes Hypertension HLD (hyperlipidemia) Anemia Myocardial infarction Heart disease Kidney diseaseFather Hypertension HLD (hyperlipidemia) Bipolar disorder Diabetes Alcoholism Arthritis Depression Mental disorderOther CVA (cerebral vascular accident) Social History household members: none current occupational status: unemployed 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 I initially seen him in the office on August 03, 2022 for evaluation regarding an arteriovenous hemodialysis fistula. Patient was markedly hypertensive at that time. Dr. Rico initiated the patient on a clonidine patch. We could not proceed with fistula creation at that setting. On June 27, 2022 he had had bilateral upper extremity vein mapping. Cephalic veins bilaterally were noted to be small. However on my inspection during his office visit I thought I could identify adequate left upper extremity cephalic vein. Unfortunately when he finally return for surgery on November 14, 2022 in the operating room what previously appeared to be a viable vein was noted to be extraordinarily small. A fistula was created with a left extremity brachial cephalic arteriovenous fistula however the hopes for maturation were low. The basilic vein of the forearm is extraordinarily small. The basilic vein of the upper arm is borderline. At the time of his vein mapping pulsatile venous flow was noted in bilateral cephalic and basilic veins. 27-year-old gentleman. On November 14, 2022 I attempted to create a left upper extremity brachiocephalic arteriovenous hemodialysis fistula. His venous outflow was noted to be extraordinarily small. He was scheduled for postoperative appointment but he failed to make that appointment. Previous vein mapping dates back to June 27, 2022 as noted below but at that appointment the patient was significantly hypertensive and we could not proceed with surgery Reason For Study: eval for AV access Right Arm Left Arm Cephalic vein demonstrates chronic vein wall Cephalic vein is compressible with pulsatile thikening at the antecubital space with venous flow noted. pulsatile venous flow noted. Left Cephalic Vein at the shoulder Right Cephalic Vein at the shoulder measures .2 x .21 cm. measures .21 x .24 cm. Left Cephalic Vein at mid bicep measures .14 Right Cephalic Vein mid bicep measures .12 x .15 cm. x .14 cm. Left Cephalic Vein above antecub Right Cephalic Vein above antecub measures .16 x .18 cm. measures .07 x .08 cm. Left Cephalic Vein below antecub Right Cephalic Vein below antecub measures .12 x .15 cm. measures .22 x .28 cm. Left Cephalic Vein in the forearm Right Cephalic Vein in the forearm measures .12 x .12 cm. measures .08 x .1 cm. Left Cephalic Vein at the wrist measures .13 Right Cephalic Vein at the wrist x .15 cm. measures .08 x .11 cm. Basilic vein is compressible with pulsatile Basilic vein is compressible with pulsatile venous flow noted. venous flow noted. Brachial artery .57 x .67 cm. Brachial artery .55 x .61 cm. Brachial artery 74.6 cm/s. Brachial artery 51.9 cm/s. Radial artery .25 x .28 cm. Radial artery .28 x .28 cm. Radial artery 48.3 cm/s. Radial artery 74.6 cm/s. Basilic vein at bicep measures .28 x .28 cm. Right Basilic Vein mid bicep measures .27 Basilic vein above antecub measures .28 x .32 cm. x .31 cm. Right Basilic Vein above antecub Basilic vein below antecub measures .1 x .12 measures .18 x .22 cm. cm. Right Basilic Vein below antecub Basilic vein in the forearm measures .16 measures .19 x .23 cm. x .17 cm. Right Basilic Vein in the forearm Basilic vein at the wrist measures .06 x .08 measures .12 x .13 cm. cm. Right Basilic Vein at the wrist measures .07 x .07 cm. VL/Dialysis Vein Map PRE-OP BILAT Interpretation Summary Bilateral upper extremity cephalic and basilic veins have dimensions as noted. Most pertinently is that there is pulsatile venous flow in bilateral cephalic veins suspicious for proximal venous hypertension or obstruction. Pulsatile flow is identified in bilateral basilic veins as well. Clinical correlation would be indicated. This patient may not be a candidate for arteriovenous fistula creation Bilateral radial and brachial arteries have normal diameter and flow Ordering Physician: Nancy Pinzon Performed By: Marcello Garcia RVKatrina General General: Yes weight change and fatigue; No appetite, colon cancer, breast cancer or weakness HEENT HEENT: No difficulty swallowing, eye injury, eye surgery, swollen glands or hoarseness Endo Endocrine: Yes diabetes mellitus; No thyroid disease, thyroid cancer, Hair loss, heat intolerance or cold intolerance Skin Skin: No rash or changing moles Breast Breast: No left breast lump, right breast lump, nipple discharge, breast pain, abnormal mammogram, abnormal US or breast enlargement Musc Musculoskeletal: Yes arthritis; No back problems, rheumatoid arthritis, gout or joint pain Cardio Cardiovascular: Yes heart disease and high blood pressure; No murmur, pacemaker, atrial fibrillation, heart attack, heart stent, palpitations, shortness of breat with exertion or chest pain Psych Psychiatric: Yes depression and anxiety; No hearing voices Resp Respiratory: Yes shortness of breath, No sleep apnea, No cough, No COPD, No asthma, No emphysema and No wheezing Gastro Gastrointestinal: No abdominal pain, Yes nausea or vomiting, Yes diarrhea, No constipation, No blood in stool, Yes acid reflux, No hemorrhoids, No ulcers, No gallbladder problem and No black,tarry stools [place] Hematologic: No blood thinners, No blood disorders, No bleeding, No anemia and No blood clots Neuro Neurologic: No system reviewed and no additional complaints, except as documented, No as per HPI, No abnormal gait, No abnormal hearing, No abnormal movements, No abnormal speech, No behavioral changes, No burning sensations, No confusion, No convulsions, No disequilibrium, No dizziness, No localized weakness, No frequent falls, No headache(s), No lack of coordination, No loss of vision, No memory loss, No numbness, No other visual disturbances, No radicular pain, No restless legs, No sensory deficit, No syncope, No tingling, No tremor(s), No weakness and No other Exam Const General: cooperative and no acute distress HENMT Head: normal to inspection Eyes Other: Injection of the left sclera Chest Other: Right IJ tunneled dialysis catheter is in place Resp Effort & Inspection: normal respiratory effort Auscultation: clear to auscultation bilaterally Cardio Rate: regular rate Rhythm: regular rhythm GI Palpation: soft and no hepatosplenomegaly Musc Cervical Spine: normal cervical lordosis Skin General: no rashes or lesions noted Neuro General: patient alert and patient awake Extrem Other: Left upper arm nicely healing antecubital incision. No pulse thrill or bruit. Ultrasound inspection reveals what appears to be potentially a branch of the basilic vein with an outflow via the upper arm basilic vein which appears to be of appropriate caliber with flow noted. Psych Appearance: grossly normal Assessment and Plan Assessment and Plan (1) Problem with dialysis access: Status: Acute Qualifiers: Encounter type: initial encounter Qualified Code(s): T82.898A - Other specified complication of vascular prosthetic devices, implants and grafts, initial encounter Plan: I have recommended the patient that we get a duplex fistula his exam of his left upper arm. To me it would appear that his basilic vein actually is maturing although I cannot detect a pulse thrill or bruit. If the fistulogram confirms what I believe that I am seeing then we will schedule him for stage II transposition left upper arm basilic vein to brachial artery AV fistula creation. If however my inspection is false and that the left upper arm basilic vein is actually not maturing then I would need to consider whether he would be a candidate for an upper arm graft. Copy: Dr. Linn Ware and Dr. Trisha Rowell M.D., F.A.C.S. The duplex imaging exam demonstrated that the cephalic portion of the fistula is occluded. The left upper arm basilic vein is still patent but albeit with very sluggish flow. All veins remain diminutive. I have discussed with this 27-year-old patient my ongoing attempts to create for him a fistula rather than a graft or other. I have proposed for him and attempted transposition left upper arm basilic vein to brachial artery AV fistula creation. The patient is aware that his venous structures particularly are extraordinarily tentative. He has had an opportunity to ask and have questions answered. Based upon the previous vein mapping and his current fistula study and my current venous inspection hopefully will be able to perform this creation today. Avery Rowell M.D., F.A.C.S.
--- NOTE | 2022-12-19 06:53 | DCINST_ITS ---
Discharge Instructions Procedure Fistula Diet Discharge Diet: Renal Diet Activity Discharge Activity: May Not Drive (for 2-3 days or while taking narcotic pain medications.) and May Take a Tub Bath (in 5 days.) Lifting Restrictions: 5 pounds Keep extremity elevated above heart level: - (Keep arm elevated above the heart level for 3 days.) Additional Activity Instructions:: Elevate the left upper extremity on a pillow to assist with limiting pain and swelling Dressing / Incision Call your doctor if your incision/area has: Continuous Slow Oozing, Sudden Increased Bleeding (apply pressure and call your doctor.), Increased Pain/ Swelling, Increased Redness and Foul Smelling Discharge Call your doctor if you observe: Fever of 101 or Higher Suture Line Care: Avoid Pulling/Pushing and Avoid Pinching/Bending Cleanse incision/area with: Keep Dressing Clean & Dry Additional Dressing/Incision Instructions:: You may leave the elastic wrap on the left upper extremity for 2 days. You may then remove the elastic wrap and fluffy gauze dressing. Leave the upper arm Steri-Strips in place for 1 week Follow Up Care Please Follow Up With: Avery Rowell MD When: Call [phone] to make an appointment for surgical follow-up in 7 to 10 days. Test Results: Test results from this visit will be discussed in further detail at your follow- up appointment, if applicable. Discharge Plan Admission Attending Provider: Avery Rowell Primary Care Provider: Linn Ware Discharge Orders/Prescriptions Prescriptions: No Action cholecalciferol (vitamin D3) 1,250 mcg (50,000 unit) capsule 1,250 mcg PO QWEEK Qty: 12 0RF amlodipine 10 mg tablet 10 mg PO BID Qty: 180 3RF doxazosin 8 mg tablet 8 mg PO QHS Qty: 90 3RF doxepin 10 mg capsule 10 mg PO QHS PRN (Reason: sleep) Qty: 30 2RF lurasidone 20 mg tablet 20 mg PO QPM Qty: 30 2RF Rx Instructions: must administer with food (at least 350 calories) hydralazine 50 mg tablet 100 mg PO 4X/DAY Qty: 120 0RF labetalol 200 mg tablet 200 mg PO TIDCM Qty: 90 2RF minoxidil 2.5 mg tablet 5 mg PO DAILY Qty: 60 2RF omeprazole 40 mg capsule,delayed release(DR/EC) 40 mg PO DAILY Qty: 30 2RF aspirin 81 mg tablet,delayed release (DR/EC) 81 mg PO BREAKFAST Qty: 30 2RF clonidine 0.3 mg/24 hr patch weekly 1 patch transdermal QWEEK Qty: 4 12RF Referrals / Follow Up: Linn Ware MD [Primary Care Provider] - Disposition Disposition (needs filled in before D/C Order can be placed): Home, Self Care
[2022-12-19] MEDS: Cefazolin 2 GM in 0.9% Normal Saline 100 ML IV (07:27)
[2022-12-19] MEDS: Heparin Injection (Vial) 5,000 UNIT/ML VIAL 5000 UNIT (07:45)
[2022-12-19] MEDS: Bupivacaine Mpf 0.5% 30 ML VIAL (07:45)
[2022-12-19] MEDS: Lidocaine 1% (30 ml sdv) 30 ML Vial (07:45)
--- NOTE | 2022-12-19 09:59 | PCM.OPRPT ---
Report of Operation Date of Procedure: 12/19/22 Pre-Operative Diagnosis: Chronic renal insufficiency in need of hemodialysis access fistula Post-Operative Diagnosis: Same Surgery/Procedure Performed:: Transposition left upper arm basilic vein to brachial artery arteriovenous hemodialysis fistula creation Description of Surgical Findings:: Timeout informed consent was obtained. 27-year-old gentleman was taken to the operating placed supine on the table underwent general anesthesia Ancef 2 g were given intravenously the left extremity was prepped and draped with chlorhexidine. 1% lidocaine mixed 50-50 with 0.25% Marcaine was used as a local anesthetic. 30 cc was used. Ultrasound mapping has been performed of the upper arm basilic vein. Then I made a longitudinal incision. Sharp and tedious blunt dissection was used to identify this basilic vein. I dissected it free to the antecubital area and somewhat further around the distal upper arm area but the antecubital branch was bigger. I then then dissected all the way up to the upper inner arm. Where needed side branches were secured with hemoclips and 3-0 Vicryl ligatures. [place] that I had excellent mobilization. The vein was irrigated. Diameter appeared to be quite appropriate. I then created a subcutaneous tunnel from the upper arm to the distal upper arm. Sharp and blunt dissection was used to identify the brachial artery at that spot and circumferential control was obtained. The vein was then ligated distally with hemoclips and then at a branch point I spatulated. Used a 3-0 Vicryl to connected to the tunneler and very carefully as I had the anterior wall in inked placed in the tunnel was a good positional lie irrigated the vein very happy with the position. The patient received 10,000 units of heparin. After adequate circulation time peripheral vascular clamps were placed on the brachial artery and 11 blade was used to make an arteriotomy which was extended with Guevara scissors. At the branch point a and venous to arterial anastomosis created with a running 7-0 Prolene. Very nice anastomosis was achieved. Hemostasis was immediately intact. There is excellent flow in the fistula. Doppler signal was used to identify good left ulnar signal. Hand appeared to be viable. The patient received 20 mg of protamine as reversal. The subcutaneous tissue was approximated in layers with multiple interrupted 3-0 Vicryl sutures. Subdermal tissues approximated same. Skin edges proximal and running subicular 4 Monocryl. Steri-Strips Telfa soft roll Fletcher wrap applied. Sponge and instrument and needle counts were reported to the surgeon to be correct. Specimen none. Drains none. Blood loss 100 cc. He was taken to the recovery room in satisfactory addition without apparent complication Avery Rowell M.D., F.A.C.S. Surgeon: Avery Rowell Type of Anesthesia: General and Local Anesthesiologist: Vasu Ibanez
== END 2022-12-19 12:40 | disposition home or self-care (01) ==
LOC: SDC 06:04 → AC 06:05
PROVIDERS: PCP Internal Medicine; Referring Provider Surgery; Visit Provider Surgery
PROC: (CPT 36821; principal; 2022-12-19 07:15)
DX: T82.898A Other specified complication of vascular prosthetic devices, implants and grafts, initial encounter (principal); Z99.2 Dependence on renal dialysis; I13.0 Hypertensive heart and chronic kidney disease with heart failure and stage 1 through stage 4 chronic kidney disease, or unspecified chronic kidney disease; I50.9 Heart failure, unspecified; F31.9 Bipolar disorder, unspecified; Z87.891 Personal history of nicotine dependence; N18.9 Chronic kidney disease, unspecified
CPT/HCPCS: 36821; 80053; 85027; A4648; J7040; J2405

== ENCOUNTER 2023-02-07 18:40 | Emergency (ER) | payer MEDICAID, SELFPAY ==
[2023-02-07 18:42] VITALS: BP 164/91; PULSE 112; RESP 22; TEMP 38.2; O2SAT 95; BMI 28.4
[2023-02-07 18:47] VITALS: BP 145/93; PULSE 112; RESP 24; TEMP 38.2; O2SAT 95
--- NOTE | 2023-02-07 19:02 | EKG12_ITS ---
Test Reason : DYSRHYTHMIA Blood Pressure : / mmHG Vent. Rate : 111 BPM Atrial Rate : 111 BPM P-R Int : 138 ms QRS Dur : 088 ms QT Int : 358 ms P-R-T Axes : 038 039 031 degrees QTc Int : 486 ms Sinus tachycardia Otherwise normal ECG Confirmed by SHABBIR HAYS, SYL ([id number]), editor newspaper INA QUIN[place] ([id number]) on 02/10/2023 1:15:24 PM Referred By: Confirmed By:SYL SHEA MD
--- NOTE | 2023-02-07 19:04 | EX.ED.DYSGE1 ---
HPI History of Present Illness Chief Complaint: Weakness Informant: patient Narrative Narrative: Patient presents with fever and overall weakness. Patient states that he woke up this morning he felt a little bit feverish. He just did not feel well. He has some myalgias. He has a very minimal cough. He has some soreness in his chest. He vomited once but does not have abdominal pain or diarrhea. He still makes urine but he is making the normal amount and it does not burn or change in color or odor. No rashes. Highest fever was 103. It comes down with aspirin a bit but then comes back. No headache. He does have a Vas-Cath on his right chest still. Last time it was used for dialysis was about 2 weeks ago because his fistula has matured. But it is accessed each dialysis and flushed. This was done yesterday. But dialysis went fine yesterday. The report does not hurt. No known report of difficulty flushing or using. [facility] Medical History (Updated 02/07/23 @ 22:[address] Gian Gomez MD) Acute on chronic heart failure with preserved ejection fraction Bipolar 1 disorder Bleach ingestion Chronic renal failure, stage 5 Former smoker GERD (gastroesophageal reflux disease) History of echocardiogram History of renal dialysis Hypertension Insomnia Irritable bowel syndrome (IBS) Multiple sclerosis Problem with dialysis access PUD (peptic ulcer disease) Tinnitus Vision problems Wears contact lenses Home Medications cholecalciferol (vitamin D3) 1,250 mcg (50,000 unit) capsule 1,250 mcg PO QWEEK #12 caps 05/26/22 [Rx Last Taken Unknown] aspirin 81 mg tablet,delayed release 81 mg PO BREAKFAST HEART HEALTH #30 tabs 07/05/22 [Rx Last Taken Unknown] hydralazine 50 mg tablet 100 mg (2 x 50 mg) PO 4X/DAY #120 tabs 07/05/22 [Rx Last Taken 12/19/22] minoxidil 2.5 mg tablet 5 mg (2 x 2.5 mg) PO DAILY #60 tabs 07/05/22 [Rx Last Taken 12/19/22] amlodipine 10 mg tablet 10 mg PO BID BLOOD PRESSURE #180 tabs 07/21/22 [Rx Last Taken 12/19/22] doxazosin 8 mg tablet 8 mg PO QHS BLOOD PRESSURE #90 tabs 07/21/22 [Rx Last Taken Unknown] clonidine 0.3 mg/24 hr weekly transdermal patch 1 patch transdermal QWEEK #4 ea 08/02/22 [Rx Last Taken 12/19/22] doxepin 10 mg capsule See Rx Instructions .Route .COMPLEX #30 caps 01/18/23 [Rx Last Taken Unknown] labetalol 200 mg tablet 200 mg PO TIDCM BLOOD PRESSURE #90 tabs 01/18/23 [Rx Last Taken Unknown] lurasidone 20 mg tablet See Rx Instructions .Route .COMPLEX #30 tabs 01/18/23 [Rx Last Taken Unknown] omeprazole 40 mg capsule,delayed release 40 mg PO DAILY ACID REFLUX #30 caps 01/18/23 [Rx Last Taken Unknown] ondansetron 4 mg disintegrating tablet 4 mg PO Q8H PRN PRN Nausea #10 tabs 02/07/23 [Rx Last Taken Unknown] Allergy/AdvReac Type Severity Reaction Status Date / Time No Known Allergies Allergy Verified 01/19/23 12:55 Family History Mother Diabetes Hypertension HLD (hyperlipidemia) Anemia Myocardial infarction Heart disease Kidney disease Father Hypertension HLD (hyperlipidemia) Bipolar disorder Diabetes Alcoholism Arthritis Depression Mental disorder Other CVA (cerebral vascular accident) Surgical History Hx of left knee surgery Hx of surgical procedure Hx of vascular surgery S/P arteriovenous (AV) fistula creation Social History household members: none current occupational status: unemployed 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 Some specific details below. Constitutional: Fever chills malaise and myalgias today. EYE: No discharge, visual complaints, or pain. ENT: No difficulty swallowing. No swelling. No pain. No reflux symptoms. Sore throat. No ear pain. No nasal congestion CV: Mild soreness on his chest. No palpitations although his heart rate is a bit quick. Respiratory: Very mild cough. He does have some mild dyspnea but no desaturations GI: No abdominal pain. Episode of vomiting but not nauseated now. No diarrhea : No frequency dysuria or hematuria. Change in urine output. Musculoskeletal: No recent trauma. Positive myalgias. No swelling. Skin: No rash. Nondiaphoretic. Neuro: No focal weakness or numbness. Endocrine: No polyuria or polydipsia. EXAM Physical Exam Narrative Exam Narrative: CONSTITUTIONAL: Patient is nontoxic in appearance. The patient looks comfortable. Work of breathing looks normal. Spite his vitals he looks nontoxic and carries on normal conversation. HEENT: No notable trauma. Mucous membranes still moist. No sinus tenderness. No indication of pain with swallowing. Pharynx overall looks normal. EYES: No conjunctival injection. No proptosis. NECK:No JVD. No stridor. CARDIOVASCULAR: Tachycardic rate. Regular rhythm. No notable murmur. No JVD. Vas-Cath in the right upper chest. It does not look inflamed. RESPIRATORY: No respiratory distress. Breathing is unlabored. No wheezes. No rhonchi. No rales. No pain with a deep breath. No chest wall tenderness. Duration is normal at 95% on room air while I am in the room. This shows no hypoxia. GASTROINTESTINAL: Not distended. Bowel sounds are normal. No tenderness. No guarding. No rebound. No palpable mass. No bruit is heard. GENITOURINARY: No tenderness over the bladder. No CVA tenderness. MUSCULOSKELETAL: Atraumatic. No tenderness or rashes. He has a fistula in the left upper arm with good frill. NEUROLOGICAL: Patient is alert and appropriate. No focal deficit noted. SKIN: No noted rashes. No diaphoresis. PSYCHIATRIC: Patient is calm. Mood is appropriate. Const Vital Signs: 02/07/23 18:42 02/07/23 18:47 02/07/23 20:33 Temperature 100.8 F H 100.8 F H 99.3 F H Temperature Source Oral Oral Oral Pulse Rate 112 H 112 H 107 H Respiratory Rate 22 H 24 H 22 H Blood Pressure 164/91 H 145/93 H 127/73 H Blood Pressure Mean 115 110 91 Pulse Ox 95 95 98 Oxygen Delivery Method Room Air Room Air Room Air 02/07/23 22:05 Temperature 98.6 F Temperature Source Oral Pulse Rate 102 H Respiratory Rate 19 H Blood Pressure 147/86 H Blood Pressure Mean 106 Pulse Ox 98 Oxygen Delivery Method Room Air MDM MDM MDM Narrative Medical decision making narrative: Patient CBC shows anemia but normal white and platelets. Patient's electrolytes do show some changes. Mildly low sodium. He has changes consistent with his chronic kidney disease. High gap and low bicarb. Patient's lactate is elevated. His chronic kidney disease certainly contributes to this. I have no indication that he has been hypotensive or hypoxic at any time. Patient's liver function test are elevated. When I saw this I talk with the patient again. He has some nausea that is now resolved. He vomited once at home. But he has no abdominal pain. He has no tenderness whatsoever at we did CT of the abdomen without contrast to look further at this. Patient's lipase is just minimally elevated. Patient's urinalysis shows no acute process. My independent interpretation of his chest x-ray shows his Vas-Cath in place. Mild increased markings. This is read as possible right infiltrate but this is a very subtle increase. Patient states he is not coughing now. He is not short of breath. And he is not hypoxic. My independent interpretation of the CT of the abdomen shows no acute process. No mass or perforation. Final reading does show fatty infiltration of the liver. Possible mild gastritis. But no acute process. A long talk with the patient. He is feeling better here his nausea is actually gone now although he would appreciate something for nausea. I explained that with his COVID also negative I am not finding a definite source for his infection. Although his LFTs are up a bit he has absolutely no symptoms related to this at this time. He is not coughing he is not short of breath. He had a very mild cough earlier but its not continuing. I explained that he could have line sepsis from his Vas-Cath. Even though he is not using it for dialysis for the last 2 or so weeks it is access to the dialysis in order to flush it. Blood cultures are sent. Patient really wants to go home. He feels better. I will give him a dose of vancomycin which should be long-lasting at least until we get cultures. He states he will come back if he feels sick again. I think this patient knows himself well. I explained that he should have a very low threshold to return because he has multiple chronic medical conditions. I have not given him a lot of IV fluids because he is a dialysis patient. He did finally agree to get the vancomycin before he left. At first he can wanted to leave right away but I was able to convince him to stay for this. Lab Data Attestation: I reviewed the patient's lab results. Labs: Laboratory Results - last 24 hr 02/07/23 02/07/23 19:30 19:35 WBC 10.6 RBC 2.75 L Hgb 8.8 L Hct 27.5 L MCV 100.0 H MCH 32.0 MCHC 32.0 RDW Std Deviation 54.1 H RDW Coeff of [place] 14.7 H Plt Count 198 MPV 11.0 Immature Gran % (Auto) 0.700 Neut % (Auto) 85.6 H Lymph % (Auto) 4.7 L [place] % (Auto) 8.4 Eos % (Auto) 0.0 Baso % (Auto) 0.6 Absolute Neuts (auto) 9.0 H Absolute Lymphs (auto) 0.50 L Nucleated RBC % 0 Differential Comment SEE COMMENT Platelet Estimate ADEQUATE RBC Morphology N CHROM Hypochromasia RARE Anisocytosis 1+ Macrocytosis 1+ Sodium 128 L Potassium 4.6 Chloride 96 L Carbon Dioxide 15.0 L Anion Gap 17 H BUN 60 H Creatinine 7.85 H* Estim Creat Clear Calc 13.43 Est GFR (MDRD) Af Amer 11 L Est GFR (MDRD) Non-Af 9 L BUN/Creatinine Ratio 7.6 L Glucose 99 Lactic Acid 4.7 H* Calcium 7.5 L Total Bilirubin 2.80 H AST 97 H ALT 74 H Alkaline Phosphatase 392 H Troponin I High Sens 31 B-Natriuretic Peptide 257.0 H Total Protein 6.8 Albumin 2.2 L Globulin 4.6 H Albumin/Globulin Ratio 0.5 L Lipase 80 H Urine Color Yellow Urine Clarity Clear Urine pH 6.5 Ur Specific [place] 1.010 Urine Protein 500 H Urine Glucose (UA) Normal Urine Ketones Negative Urine Occult Blood 10 H Urine Nitrite Negative Urine Bilirubin Negative Urine Urobilinogen 1 H Ur Leukocyte Esterase Negative Urine RBC 0 SEEN Urine WBC 0-5 SEEN Ur Squamous Epith Cells 0 SEEN Urine Bacteria 0 SEEN Urine Mucus 0 SEEN Radiography Diagnostic Testing: Clinical Impression(s) from Imaging Studies Chest X-Ray 02/07/23 19:45 IMPRESSION: Mild subsegmental atelectasis or infiltrate in the right lower lobe Electronically Signed: Damir Silva MD at 20:16 EDT Reading Location ID and State: [place] / [place] Tel , Service support , Abdomen/Pelvis CT 02/07/23 21:15 IMPRESSION: Enlarged fatty infiltrated liver. Findings which may be consistent with nonspecific gastritis with small amount of fluid in the lesser sac possibly due to coexisting mild pancreatitis. There is also an ahaustral appearance to the transverse colon also possibly due to inflammatory changes. Clinical correlation is recommended Electronically Signed: Damri Silva MD at 22:04 EDT Reading Location ID and State: [place] / [place] Tel , Service support , ADDENDUM: 02/07/23 2226 IMPRESSION: undefined EKG Initial EKG: Comments: Independent interpretation of the patient's EKG done for tachycardia shows a sinus rhythm with tachycardic rate at 111. There is no ectopy. No acute ST elevation or depression. Minimally peaked T waves that might be related to rate her electrolytes. NE interval, QRS duration are normal. QTc is just mildly long at 486 ms Discharge Plan Triage Chief Complaint: Weakness ED Provider: Gian Gomez Dx/Rx/DC Orders Clinical Impression: History of chronic kidney disease, Fever, Sepsis Instructions: Sepsis, ED FUO Adult Prescriptions: New ondansetron [ondansetron] 4 mg tablet,disintegrating 4 mg PO Q8H PRN PRN (Reason: Nausea) Qty: 10 0RF No Action cholecalciferol (vitamin D3) 1,250 mcg (50,000 unit) capsule 1,250 mcg PO QWEEK Qty: 12 0RF amlodipine 10 mg tablet 10 mg PO BID Qty: 180 3RF doxazosin 8 mg tablet 8 mg PO QHS Qty: 90 3RF hydralazine 50 mg tablet 100 mg PO 4X/DAY Qty: 120 0RF minoxidil 2.5 mg tablet 5 mg PO DAILY Qty: 60 2RF aspirin 81 mg tablet,delayed release (DR/EC) 81 mg PO BREAKFAST Qty: 30 2RF clonidine 0.3 mg/24 hr patch weekly 1 patch transdermal QWEEK Qty: 4 12RF omeprazole 40 mg capsule,delayed release(DR/EC) 40 mg PO DAILY Qty: 30 0RF labetalol 200 mg tablet 200 mg PO TIDCM Qty: 90 0RF lurasidone 20 mg tablet See Rx Instructions .ROUTE .COMPLEX Qty: 30 2RF Dose Instruction: TAKE 1 TABLET BY MOUTH EVERY EVENING WITH FOOD (AT LEAST 350 CALORIES) Rx Instructions: TAKE 1 TABLET BY MOUTH EVERY EVENING WITH FOOD (AT LEAST 350 CALORIES) doxepin 10 mg capsule See Rx Instructions .ROUTE .COMPLEX Qty: 30 2RF Dose Instruction: TAKE 1 CAPSULE BY MOUTH AT BEDTIME NEEDED FOR SLEEP Rx Instructions: TAKE 1 CAPSULE BY MOUTH AT BEDTIME NEEDED FOR SLEEP Primary Care Provider: Linn Ware Referrals: Linn Ware MD [Primary Care Provider] - Disposition Disposition: Home, Self Care
[2023-02-07] MEDS: Acetaminophen 500 MG Tablet 1000 MG PO (19:27)
--- NOTE | 2023-02-07 19:45 | RAD_ITS ---
STUDY: X-RAY CHEST REASON FOR EXAM: Male, 27 years old. SOB TECHNIQUE: AP portable COMPARISON: June 17, 2022 FINDINGS: Mild subsegmental atelectasis or infiltrate in the right lower lobe. There is no demonstrated pleural abnormality. Central line noted on the right with tip at the atrial caval junction Normal size heart. Normal mediastinum and bharath. Normal visualized pulmonary arteries. Normal visualized aortic arch and descending thoracic aorta. Normal visualized thoracic spine. Normal visualized ribs, clavicles, and shoulders. There is no demonstrated abnormality of the visualized soft tissue structures of the upper abdomen. RAD/Chest 1 View (Portable) IMPRESSION: Mild subsegmental atelectasis or infiltrate in the right lower lobe Electronically Signed: Damir Silva MD at 20:16 EDT ,
[2023-02-07 19:57] LABS: Bacteria 0 SEEN /hpf (None Seen); Mucous, Urine 0 SEEN /hpf (<or=2+); Red Blood Cells-Urine 0 SEEN /hpf (0-5); Squamous Epithelial Cells - UA 0 SEEN /hpf (0-5)
[2023-02-07 20:04] LABS: Basophil# 0.06 X10^3/uL; Basophil% 0.6 % (0-1); Hematocrit 27.5 % (40-54); Hemoglobin 8.8 g/dL (13.0-16.5); Lymphocyte % 4.7 % (19-41); Monocyte# 0.89 X10^3/uL; Monocyte% 8.4 % (0-10); NRBC Flagged by Analyzer 0 % (0-5); Neutrophil # 9.03 X10^3/uL (2.7-7.7); Neutrophil % 85.6 % (47-70); POSITIVE DIFFERENTIAL YES; Platelet Count 198 K/mm3 (150-450); RBC Distribution Width CV 14.7 % (11.6-14.6); RBC Distribution Width SD 54.1 fl (35.1-43.9); Red Blood Count 2.75 M/mm3 (4.6-6.2); White Blood Count 10.6 K/mm3 (4.4-11.0)
[2023-02-07 20:11] LABS: Color, Urine Yellow (Yellow); Glucose, Dipstick Normal (Normal); Ketone-Dipstick Negative (Negative); Leukocyte Esterase-Dipstick Negative /ul (Negative); Nitrite-Dipstick Negative (Negative); Occult Blood-Urine 10 /ul (Negative); Protein-Dipstick 500 mg/dl (Negative); Urine Bilirubin Dipstick Negative (Negative); Urine Clarity Clear (Clear); Urine Urobilinogen 1 mg/dl (Normal); Urine pH 6.5 (5.0 - 8.0)
[2023-02-07 20:22] LABS: Differential Indicated SCAN CRITERIA MET
[2023-02-07 20:24] LABS: Anisocytosis 1+; Hypochromasia RARE; Macrocytosis 1+; Platelet Estimate ADEQUATE (ADEQ); Red Cell Morphology N CHROM NORMAL (NORM C&C)
[2023-02-07 20:25] LABS: White Blood Cells 0-5 SEEN /hpf (0-5)
[2023-02-07 20:33] VITALS: BP 127/73; PULSE 107; RESP 22; TEMP 37.4; O2SAT 98
[2023-02-07 20:39] LABS: ALB/GLOB Ratio 0.5 RATIO (0.9-2.4); AST(SGOT) 97 U/L (15-37); Alanine Aminotransfer ALT/SGPT 74 U/L (16-61); Albumin, Serum 2.2 g/dL (3.2-5.0); Alkaline Phosphatase 392 U/L (45-117); Anion Gap 17 (5-15); BUN 60 mg/dL (7-18); BUN/Creat Ratio 7.6 RATIO (10-20); Calcium,Total 7.5 mg/dL (8.5-10.1); Chloride 96 mmol/L (98-107); Creatinine, Serum 7.85 mg/dL (0.70-1.30); EST Glomerular Filtration Rate 9 mL/min (>60); Est Glom Filt Rate - Afr Amer 11 mL/min (>60); Estimated Creatinine Clearance 13.43 ml/min; Globulin 4.6 g/dL (2.2-4.2); Glucose 99 mg/dL (74-106); Potassium 4.6 mmol/L (3.5-5.1); Protein, Total 6.8 g/dL (6.4-8.2); Sodium Level 128 mmol/L (136-145); Troponin-I HS 31 pg/mL (3.0-78.0)
[2023-02-07 21:05] LABS: Lactic Acid 4.7 mmol/L (0.4-1.9)
--- NOTE | 2023-02-07 21:15 | CT_ITS ---
STUDY: CT ABDOMEN AND PELVIS WITHOUT CONTRAST REASON FOR EXAM: Male, 27 years old. abd pain elevated LFT RADIATION DOSAGE (If Supplied By Facility): CTDIvol = ( 10.33 ) mGy, DLP = ( 544.66 ) mGycm TECHNIQUE: Transaxial images were obtained from the dome of the diaphragm to the symphysis pubis without oral contrast, and without intravenous contrast. Sagittal and coronal images were reconstructed. Individualized dose optimization techniques were used for this CT. COMPARISON: None. FINDINGS: Tiny nodular opacity in the right lower lobe measuring approximately 7 mm. The visualized portions of the heart are within normal limits. Liver is enlarged and diffusely fatty infiltrated without mass or bile duct dilatation.. Normal gallbladder and extrahepatic biliary system. Normal spleen. Pancreas is normal size however there does appear to be a small amount of fluid in the lesser sac possibly representing mild pancreatitis. Normal bilateral adrenal glands. Normal right kidney. Normal left kidney. Nonspecific thickening of the al of stomach which may be consistent with gastritis. Normal small intestine. There is an ahaustral appearance to the hepatic flexure and transverse colon which may be consistent with nonspecific inflammatory bowel disease.. No evidence for acute appendicitis. Normal abdominal aorta. Normal inferior vena cava. Normal retroperitoneum. Incompletely distended thick walled bladder likely of no significance Normal abdominal wall. Normal osseous structures. CT/Abdomen/Pelvis without Cont IMPRESSION: Enlarged fatty infiltrated liver. Findings which may be consistent with nonspecific gastritis with small amount of fluid in the lesser sac possibly due to coexisting mild pancreatitis. There is also an ahaustral appearance to the transverse colon also possibly due to inflammatory changes. Clinical correlation is recommended Electronically Signed: Damir Silva MD at 22:04 EDT ,
[2023-02-07 22:05] VITALS: BP 147/86; PULSE 102; RESP 19; TEMP 37; O2SAT 98
[2023-02-07 22:26] LABS: Lipase 80 U/L (13-75)
[2023-02-07] MEDS: Vancomycin HCl 1,250 MG in 0.9% Normal Saline (250mL Bag) 250 ML 167 MG IV (22:38)
[2023-02-07 23:57] LABS: Reflex Lactate? Y
[2023-02-08 00:26] VITALS: BP 156/94; PULSE 102; RESP 18; O2SAT 98
== END 2023-02-08 00:48 | disposition home or self-care (01) ==
PROVIDERS: Emergency Provider Emergency Medicine; PCP Internal Medicine; Visit Provider Emergency Medicine
DX: R53.1 Weakness (principal); Z99.2 Dependence on renal dialysis; A41.9 Sepsis, unspecified organism; I12.0 Hypertensive chronic kidney disease with stage 5 chronic kidney disease or end stage renal disease; N18.6 End stage renal disease; Z87.891 Personal history of nicotine dependence; Z79.899 Other long term (current) drug therapy; Z79.82 Long term (current) use of aspirin; K21.9 Gastro-esophageal reflux disease without esophagitis; R50.9 Fever, unspecified
CPT/HCPCS: 71045; 74176; 80053; 81001; 83605; 83690; 83880; 84484; 85025; 87040; 87086; 87149; 87186; 87428; 93005; 96365; 96366; 99285; J7050; A4216

== ENCOUNTER → 2023-02-14 | Outpatient (CLI) | payer MEDICAID, SELFPAY | END | disposition home or self-care (01) | LOC: BIMLAB 10:43 | PROVIDERS: PCP Internal Medicine; Visit Provider Internal Medicine | DX: R50.9 Fever, unspecified (principal) | CPT/HCPCS: 36415; 87040 ==

== ENCOUNTER 2023-02-22 11:11 | Inpatient (IN) | payer MEDICAID, SELFPAY ==
[2023-02-22] VITALS (7 sets, daily range): BP systolic 160–179; BP diastolic 102–121; PULSE 118–132; RESP 16–22; TEMP 36.2–37.4; O2SAT 99–100; BMI 29.5
--- NOTE | 2023-02-22 12:01 | EKG12_ITS ---
Test Reason : Blood Pressure : / mmHG Vent. Rate : 127 BPM Atrial Rate : 127 BPM P-R Int : 130 ms QRS Dur : 090 ms QT Int : 336 ms P-R-T Axes : 040 037 035 degrees QTc Int : 488 ms Sinus tachycardia Otherwise normal ECG When compared with ECG of 07-FEB-2023 19:07, No significant change was found Confirmed by NANY HAYS, NEREYDA ([id number]), editor greeting card INA QUINTANA ([id number]) on 02/24/2023 7:10:17 AM Referred By: LOUIE Confirmed By:FRANCK AYON MD
--- NOTE | 2023-02-22 12:02 | EX.ED.DYSGE1 ---
HPI History of Present Illness Chief Complaint: Syncope Informant: patient Narrative Narrative: Patient comes in not feeling well. Patient states he has some chest pain like he is full. He has had this with fluid overload before. It is across the front of his chest both sides but little bit more on the left. He does have mild dyspnea but his sats are normal and he is laying flat on his left side without obvious shortness of breath. He also states that he when he went to the bathroom today he counted out lightheaded and passed out but did not hurt himself. He had dialysis last on Monday. But he missed Monday and he missed this morning due to oversleeping. He denies missing any of his medications though. He has not had any fevers or chills. No vomiting. He has no history of recent travel surgery or immobilization. He has never had a VTE PE. He is is not on blood thinners. No hemoptysis phthisis. No coughing. [facility] Medical History (Updated 02/22/23 @ 16:[address] Gian Gomez MD) Acute on chronic heart failure with preserved ejection fraction Bipolar 1 disorder Bleach ingestion Chronic renal failure, stage 5 Former smoker GERD (gastroesophageal reflux disease) History of echocardiogram History of renal dialysis History of sepsis Hypertension Insomnia Irritable bowel syndrome (IBS) Multiple sclerosis Problem with dialysis access PUD (peptic ulcer disease) Tinnitus Vision problems Wears contact lenses Home Medications cholecalciferol (vitamin D3) 1,250 mcg (50,000 unit) capsule 1,250 mcg PO QWEEK #12 caps 05/26/22 [Rx Last Taken Unknown] aspirin 81 mg tablet,delayed release 81 mg PO [facility] #30 tabs 07/05/22 [Rx Last Taken Unknown] hydralazine 50 mg tablet 100 mg (2 x 50 mg) PO 4X/DAY #120 tabs 07/05/22 [Rx Last Taken 12/19/22] minoxidil 2.5 mg tablet 5 mg (2 x 2.5 mg) PO DAILY #60 tabs 07/05/22 [Rx Last Taken 12/19/22] amlodipine 10 mg tablet 10 mg PO BID BLOOD PRESSURE #180 tabs 07/21/22 [Rx Last Taken 12/19/22] doxazosin 8 mg tablet 8 mg PO QHS BLOOD PRESSURE #90 tabs 07/21/22 [Rx Last Taken Unknown] clonidine 0.3 mg/24 hr weekly transdermal patch 1 patch transdermal QWEEK #4 ea 08/02/22 [Rx Last Taken 12/19/22] doxepin 10 mg capsule See Rx Instructions .Route .COMPLEX #30 caps 01/18/23 [Rx Last Taken Unknown] lurasidone 20 mg tablet See Rx Instructions .Route .COMPLEX #30 tabs 01/18/23 [Rx Last Taken Unknown] ondansetron 4 mg disintegrating tablet 4 mg PO Q8H PRN PRN Nausea #30 tabs 02/14/23 [Rx Last Taken Unknown] labetalol 200 mg tablet 200 mg PO TIDCM BLOOD PRESSURE #90 tabs 02/15/23 [Rx Last Taken Unknown] omeprazole 40 mg capsule,delayed release 40 mg PO DAILY ACID REFLUX #30 caps 02/15/23 [Rx Last Taken Unknown] Allergy/AdvReac Type Severity Reaction Status Date / Time No Known Allergies Allergy Verified 02/22/23 11:13 Family History Mother Diabetes Hypertension HLD (hyperlipidemia) Anemia Myocardial infarction Heart disease Kidney disease Father Hypertension HLD (hyperlipidemia) Bipolar disorder Diabetes Alcoholism Arthritis Depression Mental disorder Other CVA (cerebral vascular accident) Surgical History Hx of left knee surgery Hx of surgical procedure Hx of vascular surgery S/P arteriovenous (AV) fistula creation Social History household members: none current occupational status: unemployed 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 Some specific details below. Constitutional: No recent fevers or chills. EYE: No discharge, visual complaints, or pain. ENT: No difficulty swallowing. No swelling. No pain. No reflux symptoms. Denies injury with this fall. CV: See history of present illness. Respiratory: See history of present illness. He does feel little fluid overloaded. Denies specifically salty foods. GI: No abdominal pain. No nausea vomiting diarrhea. No blood in stool. : No frequency dysuria or hematuria. Musculoskeletal: No recent injury including when he fell. No pains. No swelling. Skin: No rash. Nondiaphoretic. Neuro: No weakness or numbness. Endocrine: No polyuria or polydipsia. EXAM Physical Exam Narrative Exam Narrative: CONSTITUTIONAL: Patient is nontoxic in appearance. The patient looks comfortable. Work of breathing looks normal. He is laying on his left side. HEENT: No notable trauma. I see no bruising or contusions. Mucous membranes are moist. No sinus tenderness. No indication of pain with swallowing. EYES: No conjunctival injection. NECK:No JVD. No stridor. CARDIOVASCULAR: Tachycardic rate at about 115 on the monitor now. Regular rhythm. No notable murmur. No JVD. Monitor shows sinus tach without any notable ectopy. RESPIRATORY: No respiratory distress. Breathing is unlabored. No wheezes. No rhonchi. No rales. But he does not take real deep breaths that may limited exam. No pain with a deep breath. He does have some lower chest wall tenderness left greater than right but does not fully reproduce his symptoms. Note he has a Vas-Cath in the right upper chest. Dressings are reasonably clean. GASTROINTESTINAL: Not distended. Bowel sounds are normal. No tenderness. No guarding. No rebound. No palpable mass. No bruit is heard. GENITOURINARY: No tenderness over the bladder. No CVA tenderness. MUSCULOSKELETAL: Atraumatic. No peripheral edema. No cord. No tenderness along the deep venous system. No asymmetry. No distended veins. He has a fistula in the left upper arm with good thrill. NEUROLOGICAL: Patient is alert and appropriate. No focal deficit noted. SKIN: No noted rashes. No diaphoresis. PSYCHIATRIC: Patient is calm. Mood is appropriate. Const Vital Signs: 02/22/23 11:12 02/22/23 11:28 02/22/23 13:30 Temperature 97.1 F L Temperature Source Temporal Pulse Rate 132 H 122 H Respiratory Rate 18 18 Respiratory Effort Normal Non-Labored Respiratory Pattern Normal Blood Pressure 169/104 H 169/109 H Blood Pressure Mean 125 125 Pulse Ox 100 Oxygen Delivery Method Room Air 02/22/23 15:00 02/22/23 16:00 Temperature Temperature Source Pulse Rate 120 H 118 H Respiratory Rate 22 H 17 Respiratory Effort Respiratory Pattern Blood Pressure 160/102 H 171/105 H Blood Pressure Mean 120 123 Pulse Ox 100 99 Oxygen Delivery Method MDM MDM MDM Narrative Medical decision making narrative: Patient CBC shows anemia. But this is baseline. White count is normal. Platelets are minimally low. Electrolytes showed low sodium. Elevated creatinine consistent with his disease. Lactic acid is elevated. He has had this before. Patient's troponin is elevated but again he has not had dialysis in over a week. Patient's LFTs are up higher than last time. He has a rise of AST ALT alk phos and total bilirubin. I went back to talk to them. He is not having abdominal pain. His pain was clearly in his lower mid chest. My independent interpretation of his CTA of the chest shows no sign of pulmonary embolus pneumothorax dissection. I was also concerned about pericardial effusion which is not seen. Final reading shows no acute process but does make note of a enlarged liver. With this reading and now getting back his liver function test I did add CT of the abdomen even though he is not having pain there. The CT does show an extremely enlarged liver. Radiologist also makes note of some mild diverticulitis. I went back and saw the patient again. He is not having pain down there. I did discuss case with gastroenterology. This patient states he only has about one 8 ounce glass of alcohol a week. But there is concerns that he has a pattern that looks more likely alcohol induced although there are other things that can cause this. We will add further work-up. We found out in the past he had a suicide attempt with Tylenol. We will add Tylenol level. I will add alcohol and lipase. Gastroenterology is planning to add other labs for work-up. I will contact hospitalist for admission. With this patient having elevated troponin, renal failure, syncope, rising liver function test, persistent tachycardia, now vomiting after morphine I think inpatient evaluation is to be needed. Patient will likely need dialysis. This may solve some of his issues. He also needs evaluation for his hepatic issues. The thought is he may not have true diverticulitis. This may be recurrent ischemic colitis as there have been some similar findings seen on prior CTs. Lab Data Attestation: I reviewed the patient's lab results. Labs: Laboratory Results - last 24 hr 02/22/23 02/22/23 12:05 15:42 WBC 6.8 RBC 2.82 L Hgb 9.3 L Hct 27.6 L MCV 97.9 H MCH 33.0 H MCHC 33.7 RDW Std Deviation 51.6 H RDW Coeff of [place] 14.3 Plt Count 133 L MPV 11.0 Immature Gran % (Auto) 1.200 H Neut % (Auto) 80.2 H Lymph % (Auto) 9.4 L Terrell % (Auto) 8.0 Eos % (Auto) 0.3 Baso % (Auto) 0.9 Absolute Neuts (auto) 5.4 Absolute Lymphs (auto) 0.64 L Nucleated RBC % 0 Sodium 128 L Potassium 4.0 Chloride 95 L Carbon Dioxide 16.0 L Anion Gap 17 H BUN 54 H Creatinine 8.04 H* Est GFR (MDRD) Af Amer 10 L Est GFR (MDRD) Non-Af 8 L BUN/Creatinine Ratio 6.7 L Glucose 109 H Lactic Acid 4.0 H* Calcium 7.0 L Total Bilirubin 3.50 H AST 321 H ALT 167 H Alkaline Phosphatase 544 H Troponin I High Sens 91 H 80 H Total Protein 7.6 Albumin 2.2 L Globulin 5.4 H Albumin/Globulin Ratio 0.4 L Radiography Diagnostic Testing: Clinical Impression(s) from Imaging Studies Chest X-Ray 02/22/23 12:10 IMPRESSION: No interval change and no acute or active cardiopulmonary disease. Electronically Signed: Vasu Mohamud MD at 12:23 EDT , Chest CTA 02/22/23 13:44 IMPRESSION: 1. No acute cardiopulmonary abnormality. 2. Enlarged steatotic liver. Electronically Signed: Tani Juan MD at 14:33 EDT , Abdomen/Pelvis CT 02/22/23 15:01 IMPRESSION: 1. Enlarged severely steatotic liver. 2. Acute sigmoid diverticulitis. Electronically Signed: Tani Juan MD at 15:34 EDT , EKG Initial EKG: Comments: My independent interpretation the patient's EKG shows a sinus rhythm with tachycardic rate at 1 27. No ventricular ectopy. Mild baseline variation. No acute ST elevation or depression. AR interval, QRS duration are normal. QTc is 4 the long at 488 ms. Discharge Plan Dx/Rx/DC Orders Clinical Impression: Chest pain, Missed dialysis, Steatosis of liver, Syncope, Chronic renal failure Disposition Disposition: Acute Care Hospital [facility]
--- NOTE | 2023-02-22 12:10 | RAD_ITS ---
STUDY: X-RAY CHEST REASON FOR EXAM: Male, 27 years old. Pain. TECHNIQUE: Single frontal view of the chest. COMPARISON: February 07, 2023. FINDINGS: Stable right internal jugular triple-lumen catheter. The lungs are clear and expanded. There is no demonstrated pleural abnormality. Normal size heart. Normal mediastinum and bharath. Normal visualized pulmonary arteries. Normal visualized aortic arch and descending thoracic aorta. Normal visualized thoracic spine. Normal visualized ribs, clavicles, and shoulders. No abnormality of the visualized soft tissue structures of the upper abdomen. RAD/Chest 1 View (Portable) IMPRESSION: No interval change and no acute or active cardiopulmonary disease. Electronically Signed: Vasu Mohamud MD at 12:23 EDT ,
[2023-02-22 12:14] LABS: Absolute Lymphocyte Count 0.64 X10^3/uL (0.83-4.51); Absolute Neutrophil Count 5.4 X10^3/uL (2.0-7.7); Basophil# 0.06 X10^3/uL; Basophil% 0.9 % (0-1); Eosinophil# 0.02 X10^3/uL; Eosinophils% 0.3 % (0-5); Hematocrit 27.6 % (40-54); Hemoglobin 9.3 g/dL (13.0-16.5); Lymphocyte # 0.64 X10^3/ul (0.83-4.51); Lymphocyte % 9.4 % (19-41); Mean Corp Hgb Conc 33.7 g/dL (32-36); Mean Corpuscular Volume 97.9 fL (80-94); Monocyte# 0.54 X10^3/uL; NRBC Flagged by Analyzer 0 % (0-5); Neutrophil # 5.44 X10^3/uL (2.7-7.7); Neutrophil % 80.2 % (47-70); Platelet Count 133 K/mm3 (150-450); RBC Distribution Width CV 14.3 % (11.6-14.6); RBC Distribution Width SD 51.6 fl (35.1-43.9); Red Blood Count 2.82 M/mm3 (4.6-6.2); White Blood Count 6.8 K/mm3 (4.4-11.0)
[2023-02-22 12:41] LABS: ALB/GLOB Ratio 0.4 RATIO (0.9-2.4); AST(SGOT) 321 U/L (15-37); Alanine Aminotransfer ALT/SGPT 167 U/L (16-61); Albumin, Serum 2.2 g/dL (3.2-5.0); Alkaline Phosphatase 544 U/L (45-117); Anion Gap 17 (5-15); BUN 54 mg/dL (7-18); BUN/Creat Ratio 6.7 RATIO (10-20); Chloride 95 mmol/L (98-107); Creatinine, Serum 8.04 mg/dL (0.70-1.30); EST Glomerular Filtration Rate 8 mL/min (>60); Est Glom Filt Rate - Afr Amer 10 mL/min (>60); Globulin 5.4 g/dL (2.2-4.2); Glucose 109 mg/dL (74-106); Protein, Total 7.6 g/dL (6.4-8.2); Sodium Level 128 mmol/L (136-145); Troponin-I HS 91 pg/mL (3.0-78.0)
--- NOTE | 2023-02-22 13:44 | CT_ITS ---
EXAM: CT ANGIOGRAPHY CHEST WITHOUT AND WITH INTRAVENOUS CONTRAST CLINICAL INDICATION: pain, paracardial effusion, pulmonary embolus TECHNIQUE: Helically acquired angiography images were obtained of the chest without and with intravenous contrast. This CT exam was performed using one or more of the following dose reduction techniques: automated exposure control, adjustment of the mA and/or kV according to patient size, and/or use of iterative reconstruction technique. MIP reconstructed images were created and reviewed. CONTRAST: IV 100mL [id number] COMPARISON: CTA Chest dated 12/05/2021 FINDINGS: PULMONARY ARTERIES: Normal. Normal in caliber. No evidence of pulmonary embolism. AORTA: Normal. Normal in caliber. No evidence of dissection. GREAT VESSELS OF AORTIC ARCH: Normal. Normal in caliber. No evidence of dissection. LUNGS AND PLEURAL SPACES: Normal. No mass. No consolidation or edema. No pleural effusion or thickening. No pneumothorax. HEART: Normal. Heart size is normal. No significant coronary artery calcifications. No pericardial effusion. MEDIASTINUM: Normal. No mediastinal or hilar adenopathy. Esophagus is unremarkable. No hiatal hernia. BONES/JOINTS: Normal. No suspicious lytic or blastic abnormality. LIVER: Severe hepatic steatosis. Incompletely visualized liver appears prominent in size. TUBES, LINES AND DEVICES: Right IJ dialysis catheter tip extends to the cavoatrial junction. CT/CTA Chest W/WO Contrast IMPRESSION: 1. No acute cardiopulmonary abnormality. 2. Enlarged steatotic liver. Electronically Signed: Tani Juan MD at 14:33 EDT ,
[2023-02-22] MEDS: Morphine 4 MG/ML Syringe IV (13:51)
--- NOTE | 2023-02-22 15:01 | CT_ITS ---
EXAM: CT ABDOMEN AND PELVIS WITHOUT INTRAVENOUS CONTRAST CLINICAL INDICATION: elevated LFT, pain TECHNIQUE: Helically acquired images were obtained of the abdomen and pelvis without intravenous contrast. This CT exam was performed using one or more of the following dose reduction techniques: automated exposure control, adjustment of the mA and/or kV according to patient size, and/or use of iterative reconstruction technique. COMPARISON: No relevant prior studies available. FINDINGS: LOWER THORAX: Normal. Lung bases are clear. No cardiomegaly. No pericardial effusion. ABDOMEN: LIVER: Enlarged severely steatotic liver noted. Liver measures 21.4 cm in cephalocaudad dimension. No space-occupying lesions within the liver. PANCREAS: Normal. No focal cystic mass. SPLEEN: Normal. Normal size without focal cystic or solid mass. ADRENALS: Normal. No nodules. KIDNEYS AND URETERS: Normal. No hydronephrosis. STOMACH AND BOWEL: Prominent wall thickening of the sigmoid colon associated with minimal adjacent fat stranding suggestive of acute diverticulitis. PELVIS: APPENDIX: Appendix is visualized and normal in appearance. BLADDER: Normal. REPRODUCTIVE: Unremarkable as visualized. No mass. ABDOMEN and PELVIS: INTRAPERITONEAL SPACE: Normal. No ascites or other fluid collection. No free air. BONES/JOINTS: No suspicious lytic or blastic abnormality. SOFT TISSUES: Normal. No discrete abdominal or pelvic wall hernia. VASCULATURE: Normal. Abdominal aorta is non-dilated. LYMPH NODES: Normal. No enlarged lymph nodes. CT/Abdomen/Pelvis without Cont IMPRESSION: 1. Enlarged severely steatotic liver. 2. Acute sigmoid diverticulitis. Electronically Signed: Tani Juan MD at 15:34 EDT ,
[2023-02-22 16:09] LABS: Reflex Lactate? Y
[2023-02-22 16:12] LABS: Troponin-I HS 80 pg/mL (3.0-78.0)
[2023-02-22] MEDS: Ondansetron 4 MG/2 ML Vial IV (16:18)
--- NOTE | 2023-02-22 16:45 | NURSING ---
PCU WHITE CP, SYNCOPE, STEATOSIS, CHRONIC RENAL FAILURE
[2023-02-22 16:57] LABS: Lipase 104 U/L (13-75); Magnesium 1.7 mg/dL (1.6-2.6)
--- NOTE | 2023-02-22 17:12 | PCM.HP.STD ---
HPI - General General Date of Admission: 02/22/23 Date of Service: 02/22/23 Chief Complaint: Chest pain, nausea/emesis/abdominal pain. HPI Narrative The patient is a 26 y/o M w/ PMHx: Anxiety and Depression/Bipolar disorder/Suicide attempt 05/2021 with ingestion of bleach/vodka, HTN, PUD w/ Hx GI Bleed, ESRD on HD MWF following with Dr. Rico, Tobacco use, IBS, Obesity, Multiple sclerosis who presents to the [facility] ED on 02/22/23 with history of anterior chest discomfort although with description patient notes that he feels worse with deep inspiratory effort and also consistent with previous dyspepsia with lightheadedness and dizziness unfortunately passing out when he attempted to go to the restroom with onset of nausea and significant dry heaves in the ED with no recent fevers or chills and prior to this evaluation had denied any nausea or emesis or abdominal pain but did have some generalized discomfort on evaluation with missed HD x1 week last on Monday the week prior prompting ED evaluation. Work-up in the ED included T97.1, heart rate 132 initially with most recent repeat 120, BP 169/104 with most recent repeat 179/121, respiratory rate 18, 100% room air, CBC with WBC 6.8, hemoglobin 9.3, MCV 97.9, platelet 133 with increased immature granulocytes and lymphopenia, CMP with sodium 128, chloride 95, carbon oxide 16, anion gap 17, BUN/creatinine 54/8.04, glucose 109, lactic acid initially 4.0 with repeat 5.0 with last noted previous to this 02/07/2023 lactic acid 4.7, calcium 7, T. bili 3.50, AST/ALT 321/164, alk phos 544, troponin 91 with repeat delta 80 end of note patient has intermittently been elevated in the past, Lipase 104, procalcitonin 14.66, acetaminophen less than 2, ethyl alcohol 10, chest x-ray with no acute findings, chest CTA with no acute cardiopulmonary findings, enlarged steatotic liver, CT A/P with enlarged severely steatotic liver, acute sigmoid diverticulitis, EKG with ST with nonspecific ST-T changes with no acute evidence of ischemia. In the ED patient administered IV morphine 4 mg x 1 as well as IV Zofran 4 mg IV x1. [facility] Medical History (Updated 02/22/23 @ 19:[address] Soumya Fagan MD) Bipolar 1 disorder Bleach ingestion Chronic renal failure, stage 5 Diastolic heart failure Former smoker GERD (gastroesophageal reflux disease) History of echocardiogram History of renal dialysis History of sepsis Hypertension Insomnia Irritable bowel syndrome (IBS) Multiple sclerosis Problem with dialysis access PUD (peptic ulcer disease) Tinnitus Vision problems Wears contact lenses Home Medications cholecalciferol (vitamin D3) 1,250 mcg (50,000 unit) capsule 1,250 mcg PO QWEEK supplement #12 caps 05/26/22 [Rx Last Taken Unknown] aspirin 81 mg tablet,delayed release 81 mg PO [facility]FA[facility] #30 tabs 07/05/22 [Rx Last Taken Unknown] minoxidil 2.5 mg tablet 5 mg (2 x 2.5 mg) PO DAILY hair growth #60 tabs 07/05/22 [Rx Last Taken 12/19/22] amlodipine 10 mg tablet 10 mg PO BID BLOOD PRESSURE #180 tabs 07/21/22 [Rx Last Taken 12/19/22] doxazosin 8 mg tablet 8 mg PO QHS BLOOD PRESSURE #90 tabs 07/21/22 [Rx Last Taken Unknown] clonidine 0.3 mg/24 hr weekly transdermal patch 1 patch transdermal QWEEK bp #4 ea 08/02/22 [Rx Last Taken 12/19/22] lurasidone 20 mg tablet See Rx Instructions .Route .COMPLEX bipolar #30 tabs 01/18/23 [Rx Last Taken Unknown] ondansetron 4 mg disintegrating tablet 4 mg PO Q8H PRN PRN Nausea #30 tabs 02/14/23 [Rx Last Taken Unknown] labetalol 200 mg tablet 200 mg PO TIDCM BLOOD PRESSURE #90 tabs 02/15/23 [Rx Last Taken Unknown] omeprazole 40 mg capsule,delayed release 40 mg PO DAILY ACID REFLUX #30 caps 02/15/23 [Rx Last Taken Unknown] doxepin 10 mg capsule 10 mg PO depres 02/22/23 [History Last Taken Unknown] Allergy/AdvReac Type Severity Reaction Status Date / Time No Known Allergies Allergy Verified 02/22/23 11:13 Family History Mother Diabetes Hypertension HLD (hyperlipidemia) Anemia Myocardial infarction Heart disease Kidney disease Father Hypertension HLD (hyperlipidemia) Bipolar disorder Diabetes Alcoholism Arthritis Depression Mental disorder Other CVA (cerebral vascular accident) Surgical History Hx of left knee surgery Hx of surgical procedure Hx of vascular surgery S/P arteriovenous (AV) fistula creation Social History household members: none current occupational status: employed and unemployed 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 HEENT: + Lightheadedness/dizziness. Eyes: No visual loss, blurred vision, double vision or yellow sclerae. Ears, Nose, Throat: No hearing loss, sneezing, congestion, runny nose or sore throat. SKIN: No rash or itching, lesions, wounds. CARDIOVASCULAR: + chest pain, syncope, lightheadedness, dizziness. No palpitations, edema, orthopnea, syncopal events. RESPIRATORY: + shortness of breath, No cough or sputum, wheezing, hemoptysis. GASTROINTESTINAL: + anorexia, nausea, vomiting, abdominal discomfort on exam. No diarrhea, melena, BRBPR. GENITOURINARY: No dysuria, frequency, urgency or retention. NEUROLOGICAL: + Lightheadedness, dizziness, syncope. No headache, paralysis, ataxia, numbness or tingling in the extremities, focal weakness, change in bowel or bladder control, seizure. MUSCULOSKELETAL: + muscle, back pain, joint pain or stiffness. HEMATOLOGIC: + anemia, No bleeding or bruising. LYMPHATICS: No enlarged nodes. No history of splenectomy. PSYCHIATRIC: + history of depression or anxiety, prior suicide attempt. ENDOCRINOLOGIC: No reports of sweating, cold or heat intolerance. No polyuria or polydipsia. ALLERGIES: No history of asthma, hives, eczema or rhinitis. Vital Signs Vital Signs Vital Signs: 02/22/23 11:12 02/22/23 11:28 02/22/23 13:30 Temperature 97.1 F L Temperature Source Temporal Pulse Rate 132 H 122 H Respiratory Rate 18 18 Respiratory Effort Normal Non-Labored Respiratory Pattern Normal Blood Pressure 169/104 H 169/109 H Blood Pressure Mean 125 125 Pulse Ox 100 Oxygen Delivery Method Room Air 02/22/23 15:00 02/22/23 16:00 Temperature Temperature Source Pulse Rate 120 H 118 H Respiratory Rate 22 H 17 Respiratory Effort Respiratory Pattern Blood Pressure 160/102 H 171/105 H Blood Pressure Mean 120 123 Pulse Ox 100 99 Oxygen Delivery Method Physical Exam Narrative Physical Examination: General: Awake, alert, oriented x 3 and cooperative, laying in the ED bed, intractable nausea and episodes of suddenly sitting up with bouts of emesis/dry heaving, ill appearing. Skin: Normal color, normal turgor, no icterus, no cyanosis. HEENT: AT/NC, EOMI, PERRLA, dry MM, no carotid bruits or JVD noted. Lungs: Diminished, greater bases, decreased effort as patient having pleuritic discomfort when he takes a big deep breath, no rales, ronchi or wheezing. Heart: Tachycardic with regular rhythm; no gallop, rub audible, some reproducible anterior chest discomfort with palpation. Abdomen: Soft, obese, mild generalized discomfort but no rebound or guarding but patient has been having several bouts of severe dry heaving, no obvious distention, hyperactive BS, + HM. Extremities: No cyanosis, clubbing, or edema. Neurological: Patient awake, alert, oriented as noted, cognitive function intact; pupils equally reactive to light and accommodation, cranial nerves II-XII grossly normal, moving all 4 extremities, no focal deficits, strength moderately to severely global decrease secondary to acute presentation and onset worsening GI symptoms. Psychiatric: Affect appears fatigued, ill-appearing, no acute evidence of depressive or anxiety feelings but does have underlying significant history. Results Lab / Micro Data 02/22/23 12:05 02/22/23 12:05 Labs: Laboratory Results - last 24 hr 02/22/23 12:05: WBC 6.8, RBC 2.82 L, Hgb 9.3 L, Hct 27.6 L, MCV 97.9 H, MCH 33.0 H, MCHC 33.7, RDW Std Deviation 51.6 H, RDW Coeff of [place] 14.3, Plt Count 133 L, MPV 11.0, Immature Gran % (Auto) 1.200 H, Neut % (Auto) 80.2 H, Lymph % (Auto) 9.4 L, Butts % (Auto) 8.0, Eos % (Auto) 0.3, Baso % (Auto) 0.9, Absolute Neuts (auto) 5.4, Absolute Lymphs (auto) 0.64 L, Nucleated RBC % 0, Sodium 128 L, Potassium 4.0, Chloride 95 L, Carbon Dioxide 16.0 L, Anion Gap 17 H, BUN 54 H, Creatinine 8.04 H*, Est GFR (MDRD) Af Amer 10 L, Est GFR (MDRD) Non-Af 8 L, BUN/Creatinine Ratio 6.7 L, Glucose 109 H, Lactic Acid 4.0 H*, Calcium 7.0 L, Total Bilirubin 3.50 H, AST 321 H, ALT 167 H, Alkaline Phosphatase 544 H, Troponin I High Sens 91 H, Total Protein 7.6, Albumin 2.2 L, Globulin 5.4 H, Albumin/Globulin Ratio 0.4 L 02/22/23 15:42: Magnesium 1.7, Troponin I High Sens 80 H, Lipase 104 H 02/22/23 16:23: Lactic Acid 5.0 H* Radiology Impression Chest X-Ray 02/22/23 12:10 IMPRESSION: No interval change and no acute or active cardiopulmonary disease. Electronically Signed: Vasu Mohamud MD at 12:23 EDT , Chest CTA 02/22/23 13:44 IMPRESSION: 1. No acute cardiopulmonary abnormality. 2. Enlarged steatotic liver. Electronically Signed: Tani Juan MD at 14:33 EDT , Abdomen/Pelvis CT 02/22/23 15:01 IMPRESSION: 1. Enlarged severely steatotic liver. 2. Acute sigmoid diverticulitis. Electronically Signed: Tani Juan MD at 15:34 EDT , Assessment & Plan Assessment/Plan (1) Chest pain: PLAN: Plan The patient is a 26 y/o M w/ PMHx: Anxiety and Depression/Bipolar disorder/Suicide attempt 05/2021 with ingestion of bleach/vodka, HTN, PUD w/ Hx GI Bleed, ESRD on HD MWF following with Dr. Rico, Tobacco use, IBS, Obesity, Multiple sclerosis who presents to the [facility] ED on 02/22/23 with history of anterior chest discomfort although with description patient notes that he feels worse with deep inspiratory effort and also consistent with previous dyspepsia with lightheadedness and dizziness unfortunately passing out when he attempted to go to the restroom with onset of nausea and significant dry heaves in the ED with no recent fevers or chills and prior to this evaluation had denied any nausea or emesis or abdominal pain but did have some generalized discomfort on evaluation with missed HD x1 week last on Monday the week prior prompting ED evaluation. #1. Acute Diverticulitis with intractable nausea/dry heaves: Will admit to PCU, maintain on very judicious hydration given history and noted missed HD x 1 week but on room air, monitor I&Os, allow clears, IV zosyn regimen, IV PPI, anti-emetics, pain regimen PRN, procalcitonin requested as initially suspicion may have been over read but obtained and elevated 14.66. Consider diet advancement to clears in AM if clinically improved. #2. Elevated LFTs, anemia with concern for possibly ischemic hepatitis: Admission CMP with AST/ALT 321/164, alk phos 544, T. bili 3.50, will continue treatments as noted and will trend CMP in addition to administration of both the loading dose and a second dose of N-acetylcysteine with ongoing consultation with gastroenterology and will obtain a repeat liver ultrasound. Discussed EtOH abuse potential at length with patient and he adamantly denies and notes that he may drink maximum twice a week and if he does it is 1 mixed drink. #3. Elevated Troponins with Chest pain, indeterminate ADL G; however, in the setting of #1, #2, #4: Admission troponin 91 with repeat delta 80, EKG with no acute evidence of ischemia similar to previous, will maintain on telemetry, continue to cycle cardiac enzymes, given trending down do suspect likely related with missed dialysis and significant underlying renal disease but will transition to p.o. aspirin given intractable nausea and vomiting at this time to be cautious with oral transition once clinically improved and request echocardiogram. Mag pending. #4. Electrolyte disturbances with significant lactic acidosis suspected primarily secondary to missed dialysis but cannot rule out contribution of infectious source given CT findings as noted #1 but has been significantly elevated previously: Will continue judicious hydration given history as noted, trend LA per facility protocol, correct electrolytes as needed, trend CMP. #5. ESRD: On HD MWF, missed 1 week of HD, history of noncompliance, nephrology consulted and planned HD in AM. #6. Chronic macrocytic anemia/AOCD: Admission hemoglobin 9.3, MCV 97.9, baseline hemoglobin noted previous ranges 7-10, currently stable compared to baseline, continue to trend. #7. Anxiety and Depression/Bipolar disorder/Suicide attempt prior: Prior suicide attempt 05/2021 with ingestion of bleach/vodka #8. Hypertension: Given dry heaves and nausea in the ED we will hold oral regimen and will transition to clear DM patch with dose now with IV hydralazine #9. Multiple sclerosis: Not on regimen, encourage continued outpatient follow-up with neurology as previously arranged. #10 peptic ulcer disease with history of GI bleed: Given evidence of significant nausea and intractable emesis/dry heaves in the ED will place on IV PPI. #11. Obesity: Weight loss and lifestyle changes encouraged. #12. Former tobacco use: Encourage continued tobacco cessation. #13. DVT prophylaxis: Heparin. Charges/Coding Visit Charges Inpatient E&M: 91756 Init Hosp L3
[2023-02-22 17:52] LABS: Phosphorus 4.3 mg/dL (2.5-4.9)
--- NOTE | 2023-02-22 18:01 | ECHOD_ITS ---
Version 2 Reason For Study: Elevated Troponins Procedure This was a 2D Doppler, Color Flow transthoracic echocardiogram. Exam performed portable in patient room. Left Ventricle Normal LV size. Concentric left ventricular hypertrophy. The estimated ejection fraction is 65 %. No evidence for diastolic dysfunction. No regional wall motion abnormalities noted. Right Ventricle Normal RV size. Normal systolic function. Atria The left atrium is mildly enlarged. Normal right atrium. No doppler evidence for ASD. Mitral Valve There is no mitral valve stenosis. No mitral valve insufficiency. Tricuspid Valve There is no tricuspid stenosis. Trivial tricuspid valve insufficiency. Pulmonary artery systolic pressure is 50 mmHg. Aortic Valve Trisinus/trileaflet aortic valve. There is no aortic stenosis. No aortic valve insufficiency. Pulmonic Valve There is no pulmonic valvular stenosis. No pulmonic valve insufficiency. Great Vessels Normal aortic root. Pericardium/Pleural No pericardial effusion. MMode/2D Measurements & Calculations LVIDd: 4.8 cm IVSd: 1.5 cm LA dimension: 4.3 cm LVIDs: 3.6 cm LVPWd: 1.7 cm RVDd: 4.0 cm FS: 25.1 % LAV(MOD-bp): 73.2 ml LA A4 area: 28.0 cm2 RA A4 area: 18.9 cm2 LAV(MOD-bp) Indexed: 36.4 ml/m2 LAV(MOD-sp2): 50.9 ml LAV(MOD-sp4): 91.6 ml TAPSE: 2.1 cm Doppler Measurements & Calculations MV E max jovanny: 68.9 cm/sec Lat Peak E' Jovanny: 20.9 cm/sec Med Peak E' Jovanny: 10.3 cm/sec MV A max jovanny: 114.4 cm/sec E/E' lat: 3.3 E/E' med: 6.7 MV E/A: 0.60 Ao V2 max: 189.4 cm/sec LV V1 max: 136.0 cm/sec PA V2 max: 147.1 cm/sec Ao max P.4 mmHg LV V1 max P.4 mmHg TR max jovanny: 331.8 cm/sec TR max P.0 mmHg ECHO/Echo Complete Interpretation Summary The estimated ejection fraction is 65 %. No evidence for diastolic dysfunction. The left atrium is mildly enlarged. Concentric left ventricular hypertrophy. Ordering Physician: Soumya Fagan Referring Physician: Zoila Ware Performed By: Myron Raman RCS
[2023-02-22 18:08] LABS: Acetaminophen (Tylenol) Level < 2.0 ug/mL (10.0-30.0)
[2023-02-22 18:44] LABS: Procalcitonin 14.66 ng/mL (0.00-0.09)
[2023-02-22] MEDS: Metoprolol Tartrate 5 MG/5 ML Vial IV (19:03)
[2023-02-22] MEDS: 0.9% Saline Lock 10 ML Syringe IV ×2 (19:03→21:10)
[2023-02-22 19:50] LABS: Troponin-I HS 75 pg/mL (3.0-78.0)
[2023-02-22] MEDS: 0.9% Normal Saline (250mL Bag) 250 ML 999 ML IV (19:55)
--- NOTE | 2023-02-22 20:14 | CON.PCM.GI_ITS ---
HPI Consult Data Date of Consult: 02/22/23 HPI Narrative Reason for Consultation: Increase liver enzymes HPI Narrative: EDU WILCOX, is a 27 M who presents to the ED after missing hemodialysis. I got a chance to know him for the first time after a previous suicide attempt by swallowing bleach. He underwent EGD and was discovered to have severe erosive esophagitis. Patient states he has some chest pain like he is full. He has had this with fluid overload before. It is across the front of his chest both sides but little bit more on the left. He does have mild dyspnea but his sats are normal and he is laying flat on his left side without obvious shortness of breath. He also states that he when he went to the bathroom today he counted out lightheaded and passed out but did not hurt himself. He had dialysis last on Monday. But he missed Monday and he missed this morning due to oversleeping. He denies missing any of his medications though. He has not had any fevers or chills. No vomiting. He has no history of recent travel surgery or immobilization. He has never had a VTE/PE. He is is not on blood thinners. I I was called to see him because he has elevated liver enzymes and love elevated liver function test. Also noted on his cbc was bicytopenia with a decreased white blood cell count, hemoglobin, and platelet count. Hedenies any alcohol or recent Tylenol usage. 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 WBC 6.8, RBC 2.82 L, Hgb 9.3 L, Hct 27.6 L, MCV 97.9 H, Plt Count 133 L Total Bilirubin 3.50 H, AST 321 H, ALT 167 H, Alkaline Phosphatase 544 H, Lipase 104 H LIVER: Enlarged severely steatotic liver noted. Liver measures 21.4 cm in cephalocaudad dimension. No space-occupying lesions within the liver. PANCREAS: Normal. No focal cystic mass. SPLEEN: Normal. Normal size without focal cystic or solid mass. COLON: Acute Mild diverticulitis [facility] Medical History (Updated 02/22/23 @ 19:[address] Soumya Fagan MD) Bipolar 1 disorder Bleach ingestion Chronic renal failure, stage 5 Diastolic heart failure Former smoker GERD (gastroesophageal reflux disease) History of echocardiogram History of renal dialysis History of sepsis Hypertension Insomnia Irritable bowel syndrome (IBS) Multiple sclerosis Problem with dialysis access PUD (peptic ulcer disease) Tinnitus Vision problems Wears contact lenses Home Medications cholecalciferol (vitamin D3) 1,250 mcg (50,000 unit) capsule 1,250 mcg PO QWEEK supplement #12 caps 05/26/22 [Rx Last Taken Unknown] aspirin 81 mg tablet,delayed release 81 mg PO BREAKFAST HEART HEALTH #30 tabs 07/05/22 [Rx Last Taken Unknown] minoxidil 2.5 mg tablet 5 mg (2 x 2.5 mg) PO DAILY hair growth #60 tabs 07/05/22 [Rx Last Taken 12/19/22] amlodipine 10 mg tablet 10 mg PO BID BLOOD PRESSURE #180 tabs 07/21/22 [Rx Last Taken 12/19/22] doxazosin 8 mg tablet 8 mg PO QHS BLOOD PRESSURE #90 tabs 07/21/22 [Rx Last Taken Unknown] clonidine 0.3 mg/24 hr weekly transdermal patch 1 patch transdermal QWEEK bp #4 ea 08/02/22 [Rx Last Taken 12/19/22] lurasidone 20 mg tablet See Rx Instructions .Route .COMPLEX bipolar #30 tabs 01/18/23 [Rx Last Taken Unknown] ondansetron 4 mg disintegrating tablet 4 mg PO Q8H PRN PRN Nausea #30 tabs 02/14/23 [Rx Last Taken Unknown] labetalol 200 mg tablet 200 mg PO TIDCM BLOOD PRESSURE #90 tabs 02/15/23 [Rx Last Taken Unknown] omeprazole 40 mg capsule,delayed release 40 mg PO DAILY ACID REFLUX #30 caps 02/15/23 [Rx Last Taken Unknown] doxepin 10 mg capsule 10 mg PO depres 02/22/23 [History Last Taken Unknown] Allergy/AdvReac Type Severity Reaction Status Date / Time No Known Allergies Allergy Verified 02/22/23 11:13 Family History Mother Diabetes Hypertension HLD (hyperlipidemia) Anemia Myocardial infarction Heart disease Kidney disease Father Hypertension HLD (hyperlipidemia) Bipolar disorder Diabetes Alcoholism Arthritis Depression Mental disorder Other CVA (cerebral vascular accident) Surgical History Hx of left knee surgery Hx of surgical procedure Hx of vascular surgery S/P arteriovenous (AV) fistula creation Social History household members: none current occupational status: employed and unemployed 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 HEENT: + Lightheadedness/dizziness. Eyes: No visual loss, blurred vision, double vision or yellow sclerae. Ears, Nose, Throat: No hearing loss, sneezing, congestion, runny nose or sore throat. SKIN: No rash or itching, lesions, wounds. CARDIOVASCULAR: + chest pain, syncope, lightheadedness, dizziness. No palpitati ons, edema, orthopnea, syncopal events. RESPIRATORY: + shortness of breath, No cough or sputum, wheezing, hemoptysis. GASTROINTESTINAL: + anorexia, nausea, vomiting, abdominal discomfort on exam. No diarrhea, melena, BRBPR. GENITOURINARY: No dysuria, frequency, urgency or retention. NEUROLOGICAL: + Lightheadedness, dizziness, syncope. No headache, paralysis, ataxia, numbness or tingling in the extremities, focal weakness, change in bowel or bladder control, seizure. MUSCULOSKELETAL: + muscle, back pain, joint pain or stiffness. HEMATOLOGIC: + anemia, No bleeding or bruising. LYMPHATICS: No enlarged nodes. No history of splenectomy. PSYCHIATRIC: + history of depression or anxiety, prior suicide attempt. ENDOCRINOLOGIC: No reports of sweating, cold or heat intolerance. No polyuria or polydipsia. ALLERGIES: No history of asthma, hives, eczema or rhinitis. Physical Exam Narrative Physical Examination: General: Awake, alert, oriented x 3 and cooperative, laying in the ED bed, intractable nausea and episodes of suddenly sitting up with bouts of emesis/dry heaving, ill appearing. Skin: Normal color, normal turgor, no icterus, no cyanosis. HEENT: AT/NC, EOMI, PERRLA, dry MM, no carotid bruits or JVD noted. Lungs: Diminished, greater bases, decreased effort as patient having pleuritic discomfort when he takes a big deep breath, no rales, ronchi or wheezing. Heart: Tachycardic with regular rhythm; no gallop, rub audible, some reproducible anterior chest discomfort with palpation. Abdomen: Soft, obese, mild generalized discomfort but no rebound or guarding but patient has been having several bouts of severe dry heaving, no obvious distention, hyperactive BS, + HM. Extremities: No cyanosis, clubbing, or edema. Neurological: Patient awake, alert, oriented as noted, cognitive function intact; pupils equally reactive to light and accommodation, cranial nerves II- XII grossly normal, moving all 4 extremities, no focal deficits, strength moderately to severely global decrease secondary to acute presentation and onset worsening GI symptoms. Psychiatric: Affect appears fatigued, ill-appearing, no acute evidence of depressive or anxiety feelings but does have underlying significant history. Lab / Micro Data 02/22/23 12:05 02/22/23 12:05 Labs: Laboratory Results - last 24 hr 02/22/23 12:05: WBC 6.8, RBC 2.82 L, Hgb 9.3 L, Hct 27.6 L, MCV 97.9 H, MCH 33.0 H, MCHC 33.7, RDW Std Deviation 51.6 H, RDW Coeff of [place] 14.3, Plt Count 133 L, MPV 11.0, Immature Gran % (Auto) 1.200 H, Neut % (Auto) 80.2 H, Lymph % (Auto) 9.4 L, [place] % (Auto) 8.0, Eos % (Auto) 0.3, Baso % (Auto) 0.9, Absolute Neuts (auto) 5.4, Absolute Lymphs (auto) 0.64 L, Nucleated RBC % 0, Sodium 128 L, Potassium 4.0, Chloride 95 L, Carbon Dioxide 16.0 L, Anion Gap 17 H, BUN 54 H, Creatinine 8.04 H*, Est GFR (MDRD) Af Amer 10 L, Est GFR (MDRD) Non-Af 8 L, BUN/Creatinine Ratio 6.7 L, Glucose 109 H, Lactic Acid 4.0 H*, Calcium 7.0 L, Total Bilirubin 3.50 H, AST 321 H, ALT 167 H, Alkaline Phosphatase 544 H, Troponin I High Sens 91 H, Total Protein 7.6, Albumin 2.2 L, Globulin 5.4 H, Albumin/Globulin Ratio 0.4 L 02/22/23 15:42: Magnesium 1.7, Troponin I High Sens 80 H, Lipase 104 H 02/22/23 15:43: Phosphorus 4.3 02/22/23 16:23: Lactic Acid 5.0 H* 02/22/23 16:35: Procalcitonin 14.66 H, Acetaminophen < 2.0 L, Ethyl Alcohol 10.0 02/22/23 18:55: Troponin I High Sens 75 Radiology Impression Chest X-Ray 02/22/23 12:10 IMPRESSION: No interval change and no acute or active cardiopulmonary disease. Electronically Signed: Vasu Mohamud MD at 12:23 EDT , Chest CTA 02/22/23 13:44 IMPRESSION: 1. No acute cardiopulmonary abnormality. 2. Enlarged steatotic liver. Electronically Signed: Tani Juan MD at 14:33 EDT , Abdomen/Pelvis CT 02/22/23 15:01 IMPRESSION: 1. Enlarged severely steatotic liver. 2. Acute sigmoid diverticulitis. Electronically Signed: Tani Juan MD at 15:34 EDT , Assessment & Plan Assessment/Plan (1) Chest pain: PLAN: Plan The patient is a 27 yo male with: Suicide attempt 05/2021 with ingestion of bleach/vodka, HTN, PUD w/ Hx GI Bleed, ESRD on HD MWF who presents to the [facility] ED on 02/22/23 with chest discomfort . Elevated LFTs: The Admission CMP with AST/ALT 321/164, alk phos 544, T. bili 3 .50. S since he does not have pain, it would not be consistent with an obstructive physiology, such as choledochal [place], or cholecystitis, causing diseases such as Moruzzi syndrome. Him not having dialysis does put a bit wrist for cholangitis, even though he does not have any fever or read real quadrant pain. H he is insidious onset of jaundice with mild nausea and vomiting and possible prodrome phase would suggest possible viral hepatitis. A family or personal history of any autoimmune disease can point toward PSC or PBC His tylenol and etoh levels are normal. He should have the administration of both the loading dose and a second dose of N-acetylcysteine with ongoing consultation with gastroenterology and will obtain a repeat liver ultrasound with an mrcp. I will send labs for chronic liver disease, lab, such as Ari's disease, autoimmune hepatitis, PBC , chronic, viral, hepatitis, celiac, disease, infiltrative disease, such as sarcoidosis, hemachromatosis, amyloidosis. Agree withagree with antibiotics for acute diverticulitis. Charges/Coding Visit Charges Inpatient E&M: 34601 Init Hosp L3
[2023-02-22] MEDS: proCHLORPERazine 10 MG/2 ML Vial 5 MG IV (20:15)
[2023-02-22 21:06] LABS: Platelet Count 95 K/mm3 (150-450); RET-HE 34.4 pg (30-35); Reticulocyte Count 1.57 % (0.5-1.5)
[2023-02-22] MEDS: Aspirin 300 MG Suppository RC (21:08)
[2023-02-22] MEDS: 0.9% Normal Saline (1000mL) 1,000 ML 100 ML IV (21:10)
[2023-02-22 21:28] LABS: Ferritin 4670 ng/mL (26-388); Iron 91 ug/dL (65-175); Iron Binding Capacity,Total 62 ug/dL (250-450); PERCENT IRON SATURATION 146.8 % (15.0-55.0)
[2023-02-22] MEDS: Heparin Injection (Vial) 5,000 UNIT/ML VIAL 5000 UNIT SC (21:28)
[2023-02-22] MEDS: Pantoprazole Sodium 40 MG in 0.9% Normal Saline (100mL MB+) 100 ML 330 MG IV (21:49)
[2023-02-22] MEDS: Piperacil/Tazobactam 3.375 GM in 0.9% Normal Saline (50mL MB+) 50 ML IV (22:23)
[2023-02-23] VITALS (13 sets, daily range): BP systolic 132–214; BP diastolic 68–165; PULSE 96–160; RESP 16–20; TEMP 36.7–39.2; O2SAT 100; BMI 29.8; BMI 30.6; BMI 30.4
[2023-02-23] MEDS: cloNIDine HCl 0.2 MG Tablet PO (03:03)
--- NOTE | 2023-02-23 05:55 | US_ITS ---
INDICATION: Elevated LFTs EXAMINATION: Ultrasound US Abdomen Limited (quadrant) TECHNIQUE: Craig scale and color doppler imaging was performed of the right upper quadrant. COMPARISON: CT scan of the abdomen and pelvis of 02/22/2023. FINDINGS: LIVER: There is marked increased echogenicity. The liver is enlarged measuring about 21 cm in length. The portal vein is patent with normal hepatopedal flow. No focal hepatic lesion. There is no free fluid. GALLBLADDER AND BILIARY TREE: No shadowing gallstone, pericholecystic fluid or gallbladder wall thickening is demonstrated. The gallbladder wall measures 1.6 mm. The proximal common bile duct measures 3.3, which is within normal limits for the patient''s age. Sonographic Vicente''s sign: Negative. PANCREAS: No focal abnormality is demonstrated in the visualized pancreas. No pancreatic ductal dilatation. RIGHT KIDNEY: Echogenic right kidney measuring about 9.5 cm in length. The renal cortex measures 1.3 cm. No evidence of hydronephrosis. US/Liver IMPRESSION: 1. Hepatomegaly. 2. Echogenic liver consistent with fatty infiltration. 3. No evidence of cholelithiasis. Electronically Signed: Nithin Robles MD at 14:17 EDT ,
[2023-02-23] MEDS: Acetaminophen 325 MG Tablet 650 MG PO ×2 (06:07→16:07)
[2023-02-23] MEDS: Metoprolol Tartrate 5 MG/5 ML Vial IV ×2 (06:08→13:46)
[2023-02-23 06:14] LABS: Absolute Lymphocyte Count 0.55 X10^3/uL (0.83-4.51); Basophil# 0.04 X10^3/uL; Basophil% 0.6 % (0-1); Eosinophil# 0.04 X10^3/uL; Eosinophils% 0.6 % (0-5); Hematocrit 24.2 % (40-54); Lymphocyte # 0.55 X10^3/ul (0.83-4.51); Lymphocyte % 8.6 % (19-41); Mean Corp Hgb Conc 33.1 g/dL (32-36); Mean Corpuscular Hgb 33.3 pg (27.0-32.0); Mean Corpuscular Volume 100.8 fL (80-94); Mean Platelet Vol. 11.7 fl (6.2-12.0); Monocyte# 0.68 X10^3/uL; Monocyte% 10.7 % (0-10); NRBC Flagged by Analyzer 0 % (0-5); Neutrophil # 5.02 X10^3/uL (2.7-7.7); Neutrophil % 78.9 % (47-70); POSITIVE DIFFERENTIAL YES; Platelet Count 100 K/mm3 (150-450); RBC Distribution Width CV 14.1 % (11.6-14.6); RBC Distribution Width SD 51.9 fl (35.1-43.9); White Blood Count 6.4 K/mm3 (4.4-11.0)
[2023-02-23 06:19] LABS: Differential Indicated SCAN CRITERIA MET
[2023-02-23 06:48] LABS: Anisocytosis 1+
[2023-02-23 06:49] LABS: Platelet Estimate MOD DEC (ADEQ)
[2023-02-23 07:22] LABS: ALB/GLOB Ratio 0.4 RATIO (0.9-2.4); AST(SGOT) 193 U/L (15-37); Alanine Aminotransfer ALT/SGPT 136 U/L (16-61); Albumin, Serum 1.8 g/dL (3.2-5.0); Alkaline Phosphatase 420 U/L (45-117); Anion Gap 19 (5-15); BUN 48 mg/dL (7-18); BUN/Creat Ratio 5.8 RATIO (10-20); Calcium,Total 6.5 mg/dL (8.5-10.1); Chloride 96 mmol/L (98-107); Creatinine, Serum 8.34 mg/dL (0.70-1.30); EST Glomerular Filtration Rate 8 mL/min (>60); Est Glom Filt Rate - Afr Amer 10 mL/min (>60); Estimated Creatinine Clearance 12.64 ml/min; Globulin 4.9 g/dL (2.2-4.2); Glucose 129 mg/dL (74-106); Potassium 3.9 mmol/L (3.5-5.1); Protein, Total 6.7 g/dL (6.4-8.2); Sodium Level 129 mmol/L (136-145)
[2023-02-23] MEDS: Ondansetron 4 MG/2 ML Vial IV (08:25)
[2023-02-23] MEDS: 0.9% Saline Lock 10 ML Syringe IV ×3 (08:25→10:33)
[2023-02-23] MEDS: 0.9% Normal Saline 1,000 ML IV.SOLN. 1000 ML OPERA.SITE (08:46)
[2023-02-23] MEDS: PureFlow B 2K Dialysis Soln 1 BAG 6 BAG PF (08:47)
[2023-02-23] MEDS: Calcium Gluconate IV 2 GM in 0.9% Normal Saline (100mL Bag) 100 ML IV (09:27)
[2023-02-23] MEDS: hydrALAZINE 20 MG/ML Vial IV (09:44)
[2023-02-23] MEDS: Heparin 10,000 UNITS/10 ML Vial IV (10:10)
[2023-02-23] MEDS: dilTIAZem 25 MG/5 ML Vial IV BOLUS (10:33)
[2023-02-23] MEDS: Piperacil/Tazobactam 3.375 GM in 0.9% Normal Saline (50mL MB+) 50 ML IV ×2 (11:14→21:41)
[2023-02-23] MEDS: Heparin Injection (Vial) 5,000 UNIT/ML VIAL 5000 UNIT SC ×2 (12:15→21:34)
--- NOTE | 2023-02-23 12:25 | CASEMGMT ---
RN?CM?LICENSED INVESTMENT SALES ASSISTANT?CM?to room to meet with patient for initial transition planning/care coordination?assessment.?RN?CM?introduced self and role at [facility].? Pt voices understanding and consents to?assessment?at this time.? Pt resting in bed in no distress at this time.? Pt is A/O at this time and answers all questions appropriately.?? Care providers, pharmacy, and demographics verified/updated at this time. PCP: Dr Ware Specialists: [facility]/cardiology, Trisha-e learning manager. [facility] Chair time @ 1000. Preferred Pharmacy: [facility] at discharge. Otherwise, pt uses [facility]. Insurance: [facility] Prescription Benefit: yes Living Will/HPOA: none. Pt states he does wish to complete HCPOA, stating he does not have anyone he wants to have has his HCPOA. He is aware, if he would like to complete this in the future that he can make an appt with SW @ [facility]. He voices understanding. LNOK: friend, Kellie, is listed as his only contact. Pt states he has no living relatives, stating, Don't have anyone. Living Arrangements: Patient lives alone in second floor apartment and states he does alright with the stairs. Patient is independent at home and works full-time. Transportation: self, friend DME/HHC/SNF: Patient denies DME in the home. Patient denies previous HHC or SNF. He has done Pt Link program through [facility] in the past. Plan: Patient to discharge home with follow-up plans in place. Pt wishes to return home and states has no concerns with going home at time of discharge.? CM?to follow for any discharge planning/needs.? Pt voices no further concerns/needs at this time.? Advised pt to ask for?CM?if any further questions/concerns/needs arise.? Voices understanding. PLAN:??Home w/discharge plans in place. Mckinley CARTERN?RN?CM
[2023-02-23] MEDS: 0.9% Normal Saline (1000mL) 1,000 ML 100 ML IV ×2 (13:40→23:34)
[2023-02-23] MEDS: cloNIDine HCl 0.1 MG Tablet 0.3 MG PO ×2 (13:42→21:32)
--- NOTE | 2023-02-23 13:47 | CON.PCM.RE_ITS ---
Assessment & Plan Assessment/Plan (1) ESRD (end stage renal disease): (2) Acute diverticulitis: (3) Hypertension: PLAN: Plan This is a 27-year-old male with past medical history significant for ESRD on hemodialysis Monday, last dialyzed February 15 who presented to emergency room with complaints of nausea, vomiting and chest pain. Noted to have elevated LFTs, admitted for acute diverticulitis. Noted to have elevated lactic acid. Patient is on IV antibiotics, Zosyn, also on PPI gtt. To note patient had blood cultures drawn on February 14 which resulted in no growth. Attempted dialysis today but due to significant sinus tachycardia hemodialysis session ended after about 2.5hours of HD. We will evaluate and likely plan for hemodialysis tomorrow. Outpatient EDW 93kg. Likely not much fluid removal with dialysis tomorrow as patient is now under his EDW. CXR clear. GI consulted for elevated LFTs. Liver ultrasound pending. There has been improvement in blood pressures and heart rate with metoprolol and clonidine. Labs ordered for morning. Further orders forthcoming as hospitalization evolves, thank you for allowing us to participate in the care of Edu. HPI Consult Data Date of Consult: 02/23/23 HPI Narrative HPI Narrative: EDU WILCOX, is a 27 M with past medical history significant for ESRD on hemodialysis Monday at [facility], anxiety depression, bipolar disorder, hypertension who presented emergency room yesterday with nausea, vomiting and chest pain. Work-up in the emergency room included CT of abdomen pelvis which revealed enlarged severely steatotic liver, acute sigmoid diverticulitis, chest x-ray no acute findings, CTA no acute cardiopulmonary findings. Patient was admitted for further evaluation and treatment. Patient was also hypertensive in the emergency room. Patient's last hemodialysis session was a week ago on February 15. Patient reports due to his anxiety, PTSD along with nausea and vomiting is reason for him missing dialysis Monday and Monday. Patient dialyzed about 2-1/2 hours today but due to significant tachycardia hemodialysis truncated. Today patient reports feeling better. He does have a history of noncompliance with his blood pressure medications. He did miss his clonidine patch. COUNTS INCLUDE 234 BEDS AT THE [facility] Medical History (Updated 02/23/23 @ 13:51 by ZAK Turner) Bipolar 1 disorder Bleach ingestion Chronic renal failure, stage 5 Diastolic heart failure Former smoker GERD (gastroesophageal reflux disease) History of echocardiogram History of renal dialysis History of sepsis Hypertension Insomnia Irritable bowel syndrome (IBS) Multiple sclerosis Problem with dialysis access PUD (peptic ulcer disease) Tinnitus Vision problems Wears contact lenses Home Medications cholecalciferol (vitamin D3) 1,250 mcg (50,000 unit) capsule 1,250 mcg PO QWEEK supplement #12 caps 05/26/22 [Rx Last Taken Unknown] aspirin 81 mg tablet,delayed release 81 mg PO BREAKFAST HEART HEALTH #30 tabs 07/05/22 [Rx Last Taken Unknown] minoxidil 2.5 mg tablet 5 mg (2 x 2.5 mg) PO DAILY hair growth #60 tabs 07/05/22 [Rx Last Taken 12/19/22] amlodipine 10 mg tablet 10 mg PO BID BLOOD PRESSURE #180 tabs 07/21/22 [Rx Last Taken 12/19/22] doxazosin 8 mg tablet 8 mg PO QHS BLOOD PRESSURE #90 tabs 07/21/22 [Rx Last Taken Unknown] clonidine 0.3 mg/24 hr weekly transdermal patch 1 patch transdermal QWEEK bp #4 ea 08/02/22 [Rx Last Taken 12/19/22] lurasidone 20 mg tablet See Rx Instructions .Route .COMPLEX bipolar #30 tabs 01/18/23 [Rx Last Taken Unknown] ondansetron 4 mg disintegrating tablet 4 mg PO Q8H PRN PRN Nausea #30 tabs 02/14/23 [Rx Last Taken Unknown] labetalol 200 mg tablet 200 mg PO TIDCM BLOOD PRESSURE #90 tabs 02/15/23 [Rx Last Taken Unknown] omeprazole 40 mg capsule,delayed release 40 mg PO DAILY ACID REFLUX #30 caps 02/15/23 [Rx Last Taken Unknown] doxepin 10 mg capsule 10 mg PO depres 02/22/23 [History Last Taken Unknown] Allergy/AdvReac Type Severity Reaction Status Date / Time No Known Allergies Allergy Verified 02/22/23 11:13 Family History Mother Diabetes Hypertension HLD (hyperlipidemia) Anemia Myocardial infarction Heart disease Kidney disease Father Hypertension HLD (hyperlipidemia) Bipolar disorder Diabetes Alcoholism Arthritis Depression Mental disorder Other CVA (cerebral vascular accident) Surgical History Hx of left knee surgery Hx of surgical procedure Hx of vascular surgery S/P arteriovenous (AV) fistula creation Social History household members: none current occupational status: employed and unemployed 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[employer], 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 Smoking Status: Former smoker Smokeless tobacco user: other alcohol intake: current alcohol intake frequency: a few times a week details: 4 x a week substance use type: does not use do you feel safe at home: Yes ROS ROS Narrative As in HPI and past medical history Physical Exam Narrative Alert and oriented x3, no apparent distress S1, S2, rhythm regular, rate mild tachycardia Lung sounds clear Abdomen rounded, soft, hypoactive bowel sounds No edema Tunneled HD catheter right chest dressing clean, dry and intact Left mid arm AV fistula positive thrill and bruit Lab / Micro Data 02/23/23 05:55 02/23/23 05:55 Labs: Laboratory Results - last 24 hr 02/22/23 12:05: Immature Plt Fraction 12.0 H, Retic Count 1.57 H, Immature Retic Fraction 15.70, Retic Hgb Equivalent 34.4 02/22/23 15:42: Magnesium 1.7, Troponin I High Sens 80 H, Lipase 104 H 02/22/23 15:43: Phosphorus 4.3 02/22/23 16:23: Lactic Acid 5.0 H* 02/22/23 16:35: Procalcitonin 14.66 H, Acetaminophen < 2.0 L, Ethyl Alcohol 10.0 02/22/23 18:55: Iron 91, TIBC 62 L, Iron Saturation 146.8 H, Ferritin 4670 H, Troponin I High Sens 75 02/23/23 05:55: WBC 6.4, RBC 2.40 L, Hgb 8.0 L, Hct 24.2 L, MCV 100.8 H, MCH 33.3 H, MCHC 33.1, RDW Std Deviation 51.9 H, RDW Coeff of [place] 14.1, Plt Count 100 L, MPV 11.7, Immature Gran % (Auto) 0.600, Neut % (Auto) 78.9 H, Lymph % (Auto) 8.6 L, [place] % (Auto) 10.7 H, Eos % (Auto) 0.6, Baso % (Auto) 0.6, Absolute Neuts (auto) 5.0, Absolute Lymphs (auto) 0.55 L, Nucleated RBC % 0, Platelet Estimate MOD DEC, Anisocytosis 1+, Sodium 129 L, Potassium 3.9, Chloride 96 L, Carbon Dioxide 14.0 L, Anion Gap 19 H, BUN 48 H, Creatinine 8.34 H*, Estim Creat Clear Calc 12.64, Est GFR (MDRD) Af Amer 10 L, Est GFR (MDRD) Non-Af 8 L, BUN/Creatinine Ratio 5.8 L, Glucose 129 H, Calcium 6.5 L*, Total Bilirubin 3.00 H, AST 193 H, ALT 136 H, Alkaline Phosphatase 420 H, Total Protein 6.7, Albumin 1.8 L, Globulin 4.9 H, Albumin/Globulin Ratio 0.4 L Radiology Impression Chest CTA 02/22/23 13:44 IMPRESSION: 1. No acute cardiopulmonary abnormality. 2. Enlarged steatotic liver. Electronically Signed: Tani Juan MD at 14:33 EDT , Abdomen/Pelvis CT 02/22/23 15:01 IMPRESSION: 1. Enlarged severely steatotic liver. 2. Acute sigmoid diverticulitis. Electronically Signed: Tani Juan MD at 15:34 EDT , Echocardiogram 02/22/23 18:01 Interpretation Summary The estimated ejection fraction is 65 %. No evidence for diastolic dysfunction. The left atrium is mildly enlarged. Concentric left ventricular hypertrophy. Ordering Physician: Soumya Fagan Referring Physician: Zoila Ware Performed By: Myron Raman RCS
--- NOTE | 2023-02-23 13:50 | PN_ITS ---
Subjective Subjective Patient seen and examined. He was admitted with a complaint of chest pain, nausea and vomiting as well as abdominal pain. Imaging done showed severely steatotic liver and acute sigmoid diverticulitis. Gastroenterology consulted. Objective Data Objective Data Vital Signs: Vital Signs Temp Pulse Resp BP Pulse Ox O2 Del Method O2 Flow Rate 98.1 F 131 H 18 181/96 H 100 Nasal Cannula 2 02/23/23 10:00 02/23/23 10:00 02/23/23 10:00 02/23/23 10:00 02/23/23 10:00 02/23/23 10:00 02/23/23 10:00 Oxygen Flow Rate (L/min) 2 Oxygen Delivery Method Nasal Cannula Weight: 200 lb 9.93 oz Body Mass Index (BMI) 30.4 Intake & Output: Intake and Output for Last 24 Hours 02/21/23 02/22/23 02/23/23 23:59 23:59 23:59 Intake Total 625.95 / 625.95 1170 / 1170 Output Total 300 / 300 Balance 625.95 / 625.95 870 / 870 Lab / Micro Data 02/23/23 05:55 02/23/23 05:55 Labs: Laboratory Results - last 24 hr 02/22/23 12:05: Immature Plt Fraction 12.0 H, Retic Count 1.57 H, Immature Retic Fraction 15.70, Retic Hgb Equivalent 34.4 02/22/23 15:42: Magnesium 1.7, Troponin I High Sens 80 H, Lipase 104 H 02/22/23 15:43: Phosphorus 4.3 02/22/23 16:23: Lactic Acid 5.0 H* 02/22/23 16:35: Procalcitonin 14.66 H, Acetaminophen < 2.0 L, Ethyl Alcohol 10.0 02/22/23 18:55: Iron 91, TIBC 62 L, Iron Saturation 146.8 H, Ferritin 4670 H, Troponin I High Sens 75 02/23/23 05:55: WBC 6.4, RBC 2.40 L, Hgb 8.0 L, Hct 24.2 L, MCV 100.8 H, MCH 33.3 H, MCHC 33.1, RDW Std Deviation 51.9 H, RDW Coeff of [place] 14.1, Plt Count 100 L, MPV 11.7, Immature Gran % (Auto) 0.600, Neut % (Auto) 78.9 H, Lymph % (Auto) 8.6 L, [place] % (Auto) 10.7 H, Eos % (Auto) 0.6, Baso % (Auto) 0.6, Absolute Neuts (auto) 5.0, Absolute Lymphs (auto) 0.55 L, Nucleated RBC % 0, Platelet Estimate MOD DEC, Anisocytosis 1+, Sodium 129 L, Potassium 3.9, Chloride 96 L, Carbon Dioxide 14.0 L, Anion Gap 19 H, BUN 48 H, Creatinine 8.34 H*, Estim Creat Clear Calc 12.64, Est GFR (MDRD) Af Amer 10 L, Est GFR (MDRD) Non-Af 8 L, BUN/Creatinine Ratio 5.8 L, Glucose 129 H, Calcium 6.5 L*, Total Bilirubin 3.00 H, AST 193 H, ALT 136 H, Alkaline Phosphatase 420 H, Total Protein 6.7, Albumin 1.8 L, Globulin 4.9 H, Albumin/Globulin Ratio 0.4 L Radiography Diagnostic Testing: Radiology Impression Chest CTA 02/22/23 13:44 IMPRESSION: 1. No acute cardiopulmonary abnormality. 2. Enlarged steatotic liver. Electronically Signed: Tani Juan MD at 14:33 EDT , Abdomen/Pelvis CT 02/22/23 15:01 IMPRESSION: 1. Enlarged severely steatotic liver. 2. Acute sigmoid diverticulitis. Electronically Signed: Tani Juan MD at 15:34 EDT , Echocardiogram 02/22/23 18:01 Interpretation Summary The estimated ejection fraction is 65 %. No evidence for diastolic dysfunction. The left atrium is mildly enlarged. Concentric left ventricular hypertrophy. Ordering Physician: Soumya Fagan Referring Physician: Zoila Ware Performed By: Myron Raman RCS Physical Exam Const alert, oriented x3, no apparent distress and well nourished General Appearance: cooperative and well developed HEENT normocephalic, head/scalp atraumatic, moist oral mucous membranes and oropharynx normal Eyes EOMs intact bilaterally Neck no lymphadenopathy, supple and no JVD Lymph Lymphatic: no lymphadenopathy noted and no lymphedema noted Resp Resp Narrative: Diminished breath sounds bibasally, no wheezes or crackles. On 3L of oxygen by nasal canula Cardio regular rhythm, S1 normal heart sound, S2 normal heart sound and no murmurs Cardio Narrative: tachycardic GI normal to inspection, nondistended, normoactive bowel sounds, soft to palpation, non-tender and non-distended Extremity normal capillary refill, no clubbing, cyanosis or edema and no calf tenderness Skin General Skin Exam: no breakdown Neuro CN's II-XII intact bilaterally, no focal motor deficits and no sensory deficits noted Motor Exam: strength 5/5 throughout and general weakness Psych thought process normal, cooperative and affect normal Appearance: appropriate Assessment & Plan Assessment/Plan (1) Acute diverticulitis: (2) ESRD (end stage renal disease): (3) Chronic renal failure: (4) Syncope: PLAN: Plan #Acute diverticulitis * as per CT scan of the abdomen and pelvis * on IV zosyn * gastroenterology on board. * on clear liquid diet * #Hypertensive urgency * BP is in the 200s systolic. * on clonidine; supposed to have a clonidine patch but hasnt been wearing it * Discussed with nephrology; BP has been very difficult to control. * place on clonidine 0.3mg tid. HR was in the 160s; gave a dose of IV cardizem 25mg once. * on amlodipine and doxazosin as well as labetalol * on IV metoprolol * #ESRD: on hemodialysis MWF. nephrology consulted. #Multiple sclerosis: not on any regimen. #Peptic ulcer disease: on IV PPI #Nicotine dependence: counseled to quit. Nicotine patch 21mg daily. #Anxiety and depression as well as bipolar disorder: had a suicide attempt with ingestion of bleach and vodka in May 2021. DVT prophylaxis: heparin Charges/Coding Visit Charges Inpatient E&M: 89127 Subs Hosp L3
[2023-02-23] MEDS: Pantoprazole Sodium 40 MG in 0.9% Normal Saline (100mL MB+) 100 ML 330 MG IV ×2 (14:34→23:33)
[2023-02-23] MEDS: Minoxidil 2.5 MG Tablet 5 MG PO (16:07)
--- NOTE | 2023-02-23 17:20 | EX.PCM.PN.GI ---
Subjective Subjective Patient is still nauseous but denies any abdominal pain. He did have a slight decrease in his hemoglobin today. He did spike a fever to 100.2 today. He had blood cultures drawn prior to him getting antibiotics in the ED and they have been negative thus far. Objective Data Objective Data Vital Signs: Vital Signs Temp Pulse Resp BP Pulse Ox O2 Del Method O2 Flow Rate 102.6 F H 113 H 18 134/68 H 100 Room Air 2 02/23/23 16:00 02/23/23 16:00 02/23/23 16:00 02/23/23 16:00 02/23/23 16:00 02/23/23 16:00 02/23/23 14:00 Oxygen Flow Rate (L/min) 2 Oxygen Delivery Method Room Air Weight: 200 lb 9.93 oz Body Mass Index (BMI) 30.4 Intake & Output: Intake and Output for Last 24 Hours 02/21/23 02/22/23 02/23/23 23:59 23:59 23:59 Intake Total 625.95 / 625.95 2452 / 2452 Output Total 650 / 650 Balance 625.95 / 625.95 1802 / 1802 Lab / Micro Data 02/23/23 05:55 02/23/23 05:55 Labs: Laboratory Results - last 24 hr 02/22/23 12:05: Immature Plt Fraction 12.0 H, Retic Count 1.57 H, Immature Retic Fraction 15.70, Retic Hgb Equivalent 34.4 02/22/23 15:43: Phosphorus 4.3 02/22/23 16:35: Procalcitonin 14.66 H, Acetaminophen < 2.0 L, Ethyl Alcohol 10.0 02/22/23 18:55: Iron 91, TIBC 62 L, Iron Saturation 146.8 H, Ferritin 4670 H, Troponin I High Sens 75 02/23/23 05:55: WBC 6.4, RBC 2.40 L, Hgb 8.0 L, Hct 24.2 L, MCV 100.8 H, MCH 33.3 H, MCHC 33.1, RDW Std Deviation 51.9 H, RDW Coeff of [place] 14.1, Plt Count 100 L, MPV 11.7, Immature Gran % (Auto) 0.600, Neut % (Auto) 78.9 H, Lymph % (Auto) 8.6 L, [place] % (Auto) 10.7 H, Eos % (Auto) 0.6, Baso % (Auto) 0.6, Absolute Neuts (auto) 5.0, Absolute Lymphs (auto) 0.55 L, Nucleated RBC % 0, Platelet Estimate MOD DEC, Anisocytosis 1+, Sodium 129 L, Potassium 3.9, Chloride 96 L, Carbon Dioxide 14.0 L, Anion Gap 19 H, BUN 48 H, Creatinine 8.34 H*, Estim Creat Clear Calc 12.64, Est GFR (MDRD) Af Amer 10 L, Est GFR (MDRD) Non-Af 8 L, BUN/Creatinine Ratio 5.8 L, Glucose 129 H, Calcium 6.5 L*, Total Bilirubin 3.00 H, AST 193 H, ALT 136 H, Alkaline Phosphatase 420 H, Total Protein 6.7, Albumin 1.8 L, Globulin 4.9 H, Albumin/Globulin Ratio 0.4 L Radiography Diagnostic Testing: Radiology Impression Echocardiogram 02/22/23 18:01 Interpretation Summary The estimated ejection fraction is 65 %. No evidence for diastolic dysfunction. The left atrium is mildly enlarged. Concentric left ventricular hypertrophy. Ordering Physician: Soumya Fagan Referring Physician: Zoila Ware Performed By: Myron Raman, [facility] Liver Ultrasound 02/23/23 05:55 IMPRESSION: 1. Hepatomegaly. 2. Echogenic liver consistent with fatty infiltration. 3. No evidence of cholelithiasis. Electronically Signed: Nithin Robles MD at 14:17 EDT , Physical Exam Const alert, oriented x3, no apparent distress and well nourished General Appearance: cooperative and well developed HEENT normocephalic, head/scalp atraumatic, moist oral mucous membranes and oropharynx normal Eyes EOMs intact bilaterally Neck no lymphadenopathy, supple and no JVD Lymph Lymphatic: no lymphadenopathy noted and no lymphedema noted Resp Resp Narrative: Diminished breath sounds bibasally, no wheezes or crackles. On 3L of oxygen by nasal canula Cardio regular rhythm, S1 normal heart sound, S2 normal heart sound and no murmurs Cardio Narrative: tachycardic GI normal to inspection, nondistended, normoactive bowel sounds, soft to palpation, non-tender and non-distended Extremity normal capillary refill, no clubbing, cyanosis or edema and no calf tenderness Skin General Skin Exam: no breakdown Neuro CN's II-XII intact bilaterally, no focal motor deficits and no sensory deficits noted Motor Exam: strength 5/5 throughout and general weakness Psych thought process normal, cooperative and affect normal Appearance: appropriate Assessment & Plan Assessment/Plan (1) Chest pain: PLAN: Plan The patient is a 27 yo male with: Suicide attempt 05/2021 with ingestion of bleach/vodka, HTN, PUD w/ Hx GI Bleed, ESRD on HD MWF who presents to the [facility] ED on 02/22/23 with chest discomfort . Elevated LFTs: The Admission CMP with AST/ALT 321/164, alk phos 544, T. bili 3.50. S since he does not have pain, it would not be consistent with an obstructive physiology, such as choledochal [place], or cholecystitis, causing diseases such as Mirizzi syndrome. Him not having dialysis does put a bit wrist for cholangitis, even though he does not have any fever or read real quadrant pain. H he is insidious onset of jaundice with mild nausea and vomiting and possible prodrome phase would suggest possible viral hepatitis. A family or personal history of any autoimmune disease can point toward PSC or PBC His tylenol and etoh levels are normal. He should have the administration of both the loading dose and a second dose of N-acetylcysteine with ongoing consultation with gastroenterology and will obtain a repeat liver ultrasound with an mrcp. I will send labs for chronic liver disease, lab, such as Ari's disease, autoimmune hepatitis, PBC , chronic, viral, hepatitis, celiac, disease, infiltrative disease, such as sarcoidosis, hemochromatosis, amyloidosis. Agree withagree with antibiotics for acute diverticulitis. I do not know why he keeps spiking fevers. His LFTs are improving. He has no other signs of infection other than to persistent tachycardia and fevers. He is on antibiotic therapy. If he keeps spiking fevers he may need an echocardiogram and or cultures drawn from his fistula. His imaging does not show any signs of pancreatitis although his lipase was elevated. Also does not seem to be any signs or symptoms of obstruction. Lab work is pending regarding acute nonviral viral hepatitis. He did well with N-acetylcysteine and I think it helped replete some of his glutathione stores. I will continue to monitor him. Charges/Coding Visit Charges Inpatient E&M: 08730 Subs Hosp L3
[2023-02-23] MEDS: Labetalol 200 MG Tablet PO (17:55)
[2023-02-23] MEDS: Doxazosin 4 MG Tablet 8 MG PO (21:33)
[2023-02-23] MEDS: amLODIPine 10 MG Tablet PO (21:33)
[2023-02-23] MEDS: Doxepin Hydrochloride 10 MG Capsule PO (21:34)
[2023-02-24] VITALS (17 sets, daily range): BP systolic 113–215; BP diastolic 71–109; PULSE 80–102; RESP 16–18; TEMP 36.7–37.1; O2SAT 94–100; BMI 30.8; BMI 32.0
[2023-02-24] MEDS: cloNIDine HCl 0.1 MG Tablet 0.3 MG PO ×3 (05:32→22:21)
[2023-02-24 06:14] LABS: Absolute Lymphocyte Count 0.61 X10^3/uL (0.83-4.51); Absolute Neutrophil Count 6.5 X10^3/uL (2.0-7.7); Basophil# 0.04 X10^3/uL; Basophil% 0.5 % (0-1); Eosinophils% 1.2 % (0-5); Hematocrit 22.7 % (40-54); Hemoglobin 7.3 g/dL (13.0-16.5); Lymphocyte # 0.61 X10^3/ul (0.83-4.51); Lymphocyte % 7.4 % (19-41); Mean Corp Hgb Conc 32.2 g/dL (32-36); Mean Corpuscular Hgb 32.3 pg (27.0-32.0); Mean Corpuscular Volume 100.4 fL (80-94); Mean Platelet Vol. 11.4 fl (6.2-12.0); Monocyte# 0.87 X10^3/uL; Monocyte% 10.6 % (0-10); NRBC Flagged by Analyzer 0 % (0-5); Neutrophil # 6.53 X10^3/uL (2.7-7.7); Neutrophil % 79.8 % (47-70); POSITIVE COUNT YES; Platelet Count 62 K/mm3 (150-450); RBC Distribution Width CV 14.9 % (11.6-14.6); RBC Distribution Width SD 55.4 fl (35.1-43.9); Red Blood Count 2.26 M/mm3 (4.6-6.2); White Blood Count 8.2 K/mm3 (4.4-11.0)
[2023-02-24 06:37] LABS: ALB/GLOB Ratio 0.4 RATIO (0.9-2.4); AST(SGOT) 158 U/L (15-37); Alanine Aminotransfer ALT/SGPT 107 U/L (16-61); Albumin, Serum 1.6 g/dL (3.2-5.0); Alkaline Phosphatase 298 U/L (45-117); Anion Gap 14 (5-15); BUN 35 mg/dL (7-18); BUN/Creat Ratio 4.4 RATIO (10-20); Calcium,Total 6.9 mg/dL (8.5-10.1); Chloride 103 mmol/L (98-107); Creatinine, Serum 7.94 mg/dL (0.70-1.30); EST Glomerular Filtration Rate 9 mL/min (>60); Est Glom Filt Rate - Afr Amer 10 mL/min (>60); Estimated Creatinine Clearance 13.28 ml/min; Globulin 4.3 g/dL (2.2-4.2); Glucose 145 mg/dL (74-106); Potassium 2.8 mmol/L (3.5-5.1); Protein, Total 5.9 g/dL (6.4-8.2); Sodium Level 133 mmol/L (136-145)
[2023-02-24] MEDS: PureFlow B 3K Dialysis Soln 1 BAG 6 BAG PF (08:06)
[2023-02-24] MEDS: 0.9% Saline Lock 10 ML Syringe IV (08:06)
[2023-02-24] MEDS: 0.9% Normal Saline 1,000 ML IV.SOLN. 1000 ML OPERA.SITE (08:06)
[2023-02-24] MEDS: Epoetin Alfa epbx 10,000 UNITS/ML 20000 UNIT IV (08:37)
[2023-02-24] MEDS: Potassium Chloride 10mEq/100mL 10 MEQ/100 ML IV.SOLN. 100 MEQ IV BOLUS ×4 (09:50→13:10)
[2023-02-24] MEDS: Calcium Gluconate IV 2 GM in 0.9% Normal Saline (100mL Bag) 100 ML IV (09:54)
--- NOTE | 2023-02-24 10:21 | PN_ITS ---
Subjective Subjective Patient seen and examined. He had no active complaints and had an uneventful night. Review of systems is otherwise negative. He is on room air and PB is now improved significantly. Objective Data Objective Data Vital Signs: Vital Signs Temp Pulse Resp BP Pulse Ox O2 Del Method O2 Flow Rate 98.0 F 84 16 145/89 H 100 Room Air 2 02/24/23 09:58 02/24/23 09:59 02/24/23 09:59 02/24/23 09:59 02/24/23 09:59 02/24/23 09:59 02/23/23 14:00 Oxygen Flow Rate (L/min) 2 Oxygen Delivery Method Room Air Weight: 202 lb 13.204 oz Body Mass Index (BMI) 30.8 Intake & Output: Intake and Output for Last 24 Hours 02/22/23 02/23/23 02/24/23 23:59 23:59 23:59 Intake Total 625.95 / 625.95 3442 / 3552 160 / 160 Output Total 650 / 650 600 / 600 Balance 625.95 / 625.95 2792 / 2902 -440 / -440 Lab / Micro Data 02/24/23 06:04 02/24/23 06:04 Labs: Laboratory Results - last 24 hr 02/24/23 06:04: WBC 8.2, RBC 2.26 L, Hgb 7.3 L, Hct 22.7 L, MCV 100.4 H, MCH 32.3 H, MCHC 32.2, RDW Std Deviation 55.4 H, RDW Coeff of [place] 14.9 H, Plt Count 62 L, MPV 11.4, Immature Gran % (Auto) 0.500, Neut % (Auto) 79.8 H, Lymph % (Auto) 7.4 L, [place] % (Auto) 10.6 H, Eos % (Auto) 1.2, Baso % (Auto) 0.5, Absolute Neuts (auto) 6.5, Absolute Lymphs (auto) 0.61 L, Nucleated RBC % 0, Sodium 133 L, Potassium 2.8 L, Chloride 103, Carbon Dioxide 16.0 L, Anion Gap 14, BUN 35 H, Creatinine 7.94 H*, Estim Creat Clear Calc 13.28, Est GFR (MDRD) Af Amer 10 L, Est GFR (MDRD) Non-Af 9 L, BUN/Creatinine Ratio 4.4 L, Glucose 145 H, Calcium 6.9 L, Total Bilirubin 3.40 H, AST 158 H, ALT 107 H, Alkaline Phosphatase 298 H, Total Protein 5.9 L, Albumin 1.6 L, Globulin 4.3 H, Albumin /Globulin Ratio 0.4 L Radiography Diagnostic Testing: Radiology Impression Echocardiogram 02/22/23 18:01 Interpretation Summary The estimated ejection fraction is 65 %. No evidence for diastolic dysfunction. The left atrium is mildly enlarged. Concentric left ventricular hypertrophy. Ordering Physician: Soumya Fagan Referring Physician: Zoila Ware Performed By: Myron Raman RCS Liver Ultrasound 02/23/23 05:55 IMPRESSION: 1. Hepatomegaly. 2. Echogenic liver consistent with fatty infiltration. 3. No evidence of cholelithiasis. Electronically Signed: Nithin Robles MD at 14:17 EDT , Physical Exam Const alert, oriented x3, no apparent distress and well nourished General Appearance: cooperative and well developed HEENT normocephalic, head/scalp atraumatic, moist oral mucous membranes and oropharynx normal Eyes EOMs intact bilaterally Neck no lymphadenopathy, supple and no JVD Lymph Lymphatic: no lymphadenopathy noted and no lymphedema noted Resp Resp Narrative: Diminished breath sounds bibasally, no wheezes or crackles. On room air Cardio regular rhythm, S1 normal heart sound, S2 normal heart sound and no murmurs Cardio Narrative: tachycardic GI normal to inspection, nondistended, normoactive bowel sounds, soft to palpation, non-tender and non-distended Extremity normal capillary refill, no clubbing, cyanosis or edema and no calf tenderness Skin General Skin Exam: no breakdown Neuro CN's II-XII intact bilaterally, no focal motor deficits and no sensory deficits noted Motor Exam: strength 5/5 throughout and general weakness Psych thought process normal, cooperative and affect normal Appearance: appropriate Assessment & Plan Assessment/Plan (1) Acute diverticulitis: (2) ESRD (end stage renal disease): (3) Chronic renal failure: (4) Syncope: PLAN: Plan #Acute diverticulitis * as per CT scan of the abdomen and pelvis * on IV zosyn * gastroenterology on board. * on clear liquid diet * he spiked fever yesterday, but fever has resolved. * #Hypertensive urgency * resolved. BP is down in the 130s todya * nephrology on board * on clonidine, amlodipine, doxazosin and labetalol * on IV metoprolol prn * * #Elevated troponins * 2D echo showed EF of 65% with no evidence of diastolic dysfunction and mildly enlarged left atrium as well as concentric LV hypertrophy * was likely due to troponin leak from hypetensive urgency. * stable * * #ESRD: on hemodialysis MWF. nephrology on board #Elevated liver enzymes * liver USG showed hepatomegaly and echognic liver consistent with fatty infiltration, with no evidence of cholelithiasis. * gastroenterology on board. Liver enzymes have started trending downwards. * tylenol levels and alcohol levels were normal * he got N acetyl cysteine. * for MRCP today. labs sent to screen for chronic liver disease, such as Ari's diseaes, autoimmune hepatitis, primary bilirar #Multiple sclerosis: not on any regimen. #Peptic ulcer disease: on IV PPI #Nicotine dependence: counseled to quit. Nicotine patch 21mg daily. #Anxiety and depression as well as bipolar disorder: had a suicide attempt with ingestion of bleach and vodka in May 2021. DVT prophylaxis: heparin
[2023-02-24] MEDS: Pantoprazole Sodium 40 MG in 0.9% Normal Saline (100mL MB+) 100 ML 330 MG IV ×2 (10:39→22:45)
[2023-02-24] MEDS: 0.9% Normal Saline (1000mL) 1,000 ML 100 ML IV ×2 (10:39→22:35)
[2023-02-24] MEDS: Heparin 10,000 UNITS/10 ML Vial IV (11:36)
[2023-02-24] MEDS: Piperacil/Tazobactam 3.375 GM in 0.9% Normal Saline (50mL MB+) 50 ML IV ×2 (12:01→22:35)
[2023-02-24] MEDS: Aspirin 325 MG Tablet PO (12:06)
[2023-02-24] MEDS: Labetalol 200 MG Tablet PO ×3 (12:06→17:46)
[2023-02-24] MEDS: amLODIPine 10 MG Tablet PO ×2 (12:07→22:22)
[2023-02-24] MEDS: Heparin Injection (Vial) 5,000 UNIT/ML VIAL 5000 UNIT SC ×2 (12:07→22:21)
[2023-02-24] MEDS: Minoxidil 2.5 MG Tablet 5 MG PO (12:07)
[2023-02-24] MEDS: Potassium Chloride Oral Tablet 20 MEQ 40 MEQ PO (12:11)
--- NOTE | 2023-02-24 14:12 | PCM.PN.REN ---
Subjective Subjective Resting in bed. No overnight events. Tolerated full hemodialysis treat today Objective Data Objective Data Vital Signs: Vital Signs Temp Pulse Resp BP Pulse Ox O2 Del Method O2 Flow Rate 98.0 F 100 18 140/97 H 100 Room Air 2 02/24/23 09:58 02/24/23 11:40 02/24/23 11:40 02/24/23 11:40 02/24/23 11:40 02/24/23 11:40 02/23/23 14:00 Oxygen Flow Rate (L/min) 2 Oxygen Delivery Method Room Air Weight: 95.5 kg Body Mass Index (BMI) 32.0 Intake & Output: Intake and Output for Last 24 Hours 02/22/23 02/23/23 02/24/23 23:59 23:59 23:59 Intake Total 625.95 / 625.95 3442 / 3552 2490 / 2490 Output Total 650 / 650 2200 / 2200 Balance 625.95 / 625.95 2792 / 2902 290 / 290 Lab / Micro Data 02/24/23 06:04 02/24/23 06:04 Labs: Laboratory Results - last 24 hr 02/24/23 06:04: WBC 8.2, RBC 2.26 L, Hgb 7.3 L, Hct 22.7 L, MCV 100.4 H, MCH 32.3 H, MCHC 32.2, RDW Std Deviation 55.4 H, RDW Coeff of [place] 14.9 H, Plt Count 62 L, MPV 11.4, Immature Gran % (Auto) 0.500, Neut % (Auto) 79.8 H, Lymph % (Auto) 7.4 L, [place] % (Auto) 10.6 H, Eos % (Auto) 1.2, Baso % (Auto) 0.5, Absolute Neuts (auto) 6.5, Absolute Lymphs (auto) 0.61 L, Nucleated RBC % 0, Sodium 133 L, Potassium 2.8 L, Chloride 103, Carbon Dioxide 16.0 L, Anion Gap 14, BUN 35 H, Creatinine 7.94 H*, Estim Creat Clear Calc 13.28, Est GFR (MDRD) Af Amer 10 L, Est GFR (MDRD) Non-Af 9 L, BUN/Creatinine Ratio 4.4 L, Glucose 145 H, Calcium 6.9 L, Total Bilirubin 3.40 H, AST 158 H, ALT 107 H, Alkaline Phosphatase 298 H, Total Protein 5.9 L, Albumin 1.6 L, Globulin 4.3 H, Albumin/Globulin Ratio 0.4 L Radiography Diagnostic Testing: Radiology Impression Liver Ultrasound 02/23/23 05:55 IMPRESSION: 1. Hepatomegaly. 2. Echogenic liver consistent with fatty infiltration. 3. No evidence of cholelithiasis. Electronically Signed: Nithin Robles MD at 14:17 EDT , Physical Exam Narrative Alert and oriented x3, no apparent distress S1, S2, rhythm regular, rate mild tachycardia Lung sounds clear Abdomen rounded, soft, hypoactive bowel sounds No edema Tunneled HD catheter right chest dressing clean, dry and intact Left mid arm AV fistula positive thrill and bruit Assessment & Plan Assessment/Plan (1) ESRD (end stage renal disease): (2) Acute diverticulitis: (3) Hypertension: PLAN: Plan This is a 27-year-old male with past medical history significant for ESRD on hemodialysis Monday, last dialyzed February 15 who presented to emergency room with complaints of nausea, vomiting and chest pain. Noted to have elevated LFTs, admitted for acute diverticulitis. Noted to have elevated lactic acid. Patient is on IV antibiotics, Zosyn, also on PPI gtt. To note patient had blood cultures drawn on February 14 which resulted in no growth. -ESRD on hemodialysis Monday. Patient tolerated dialysis today, 3K bath, very little fluid removal. Patient is near or even at EDW. Outpatient EDW 93kg. CXR clear. Likely next hemodialysis session will be on Monday. - GI consulted for elevated LFTs. Liver ultrasound echogenic liver consistent with fatty infiltration, no evidence of cholelithiasis. - Blood pressures improved.
[2023-02-24 15:08] LABS: Anti-Centromere B Ab <0.2 AI (0.0-0.9); Anti-Chromatin <0.2 AI (0.0-0.9); Anti-Jo <0.2 AI (0.0-0.9); Anti-Mitochondrial AB <20.0 Units (0.0-20.0); Anti-Scleroderma-70 AB 0.5 AI (0.0-0.9); Anti-dsDNA Ab <1 IU/mL (0-9); RNP Ab <0.2 AI (0.0-0.9); SJOGREN'S Anti-SS-A test < 0.2 AI (0.0-0.9); SJOGREN'S Anti-SS-B test < 0.2 AI (0.0-0.9); Smith Ab <0.2 AI (0.0-0.9)
[2023-02-24] MEDS: Doxazosin 4 MG Tablet 8 MG PO (22:22)
[2023-02-24] MEDS: Doxepin Hydrochloride 10 MG Capsule PO (22:23)
[2023-02-25] VITALS (12 sets, daily range): BP systolic 110–135; BP diastolic 68–86; PULSE 101–111; RESP 14–18; TEMP 36.7–37.2; O2SAT 97–100; BMI 32.4
[2023-02-25 08:11] LABS: Absolute Lymphocyte Count 0.86 X10^3/uL (0.83-4.51); Absolute Neutrophil Count 4.2 X10^3/uL (2.0-7.7); Basophil# 0.03 X10^3/uL; Basophil% 0.4 % (0-1); Eosinophil# 0.17 X10^3/uL; Eosinophils% 2.5 % (0-5); Hematocrit 21.5 % (40-54); Hemoglobin 6.9 g/dL (13.0-16.5); Lymphocyte # 0.86 X10^3/ul (0.83-4.51); Lymphocyte % 12.6 % (19-41); Mean Corp Hgb Conc 32.1 g/dL (32-36); Mean Corpuscular Hgb 32.2 pg (27.0-32.0); Mean Corpuscular Volume 100.5 fL (80-94); Mean Platelet Vol. 12.2 fl (6.2-12.0); Monocyte# 1.49 X10^3/uL; Monocyte% 21.8 % (0-10); NRBC Flagged by Analyzer 0 % (0-5); Neutrophil % 61.5 % (47-70); POSITIVE COUNT YES; Platelet Count 64 K/mm3 (150-450); RBC Distribution Width CV 15.5 % (11.6-14.6); Red Blood Count 2.14 M/mm3 (4.6-6.2); White Blood Count 6.8 K/mm3 (4.4-11.0)
[2023-02-25] MEDS: Labetalol 200 MG Tablet PO ×3 (08:19→16:41)
[2023-02-25] MEDS: Aspirin 325 MG Tablet PO (08:19)
[2023-02-25 08:23] LABS: ALB/GLOB Ratio 0.4 RATIO (0.9-2.4); AST(SGOT) 151 U/L (15-37); Alanine Aminotransfer ALT/SGPT 100 U/L (16-61); Albumin, Serum 1.6 g/dL (3.2-5.0); Alkaline Phosphatase 325 U/L (45-117); Anion Gap 11 (5-15); BUN 21 mg/dL (7-18); BUN/Creat Ratio 3.2 RATIO (10-20); Calcium,Total 7.5 mg/dL (8.5-10.1); Chloride 103 mmol/L (98-107); Creatinine, Serum 6.55 mg/dL (0.70-1.30); EST Glomerular Filtration Rate 11 mL/min (>60); Est Glom Filt Rate - Afr Amer 13 mL/min (>60); Globulin 4.2 g/dL (2.2-4.2); Glucose 112 mg/dL (74-106); Potassium 4.3 mmol/L (3.5-5.1); Protein, Total 5.8 g/dL (6.4-8.2); Sodium Level 131 mmol/L (136-145)
[2023-02-25] MEDS: Pantoprazole Sodium 40 MG in 0.9% Normal Saline (100mL MB+) 100 ML 330 MG IV ×2 (10:00→20:42)
[2023-02-25] MEDS: Piperacil/Tazobactam 3.375 GM in 0.9% Normal Saline (50mL MB+) 50 ML IV (10:01)
[2023-02-25] MEDS: Minoxidil 2.5 MG Tablet 5 MG PO (11:27)
[2023-02-25] MEDS: amLODIPine 10 MG Tablet PO ×2 (11:27→20:42)
[2023-02-25] MEDS: Heparin Injection (Vial) 5,000 UNIT/ML VIAL 5000 UNIT SC (11:28)
--- NOTE | 2023-02-25 11:59 | ECHOL_ITS ---
Reason For Study: Staph Bacteremia Procedure This was a limited 2D transthoracic echocardiogram. Exam performed portable in patient room. Left Ventricle Normal LV size. The estimated ejection fraction is 65 %. No regional wall motion abnormalities noted. Right Ventricle Normal RV size. Normal systolic function. Atria The left atrium is mildly enlarged. Normal right atrium. Mitral Valve There is no vegetation seen on the mitral valve. There is no mitral valve stenosis. Trivial mitral valve insufficiency. Tricuspid Valve No vegetations identified. There is no tricuspid stenosis. Mild tricuspid valve insufficiency. Pulmonary artery systolic pressure is 45 mmHg. Aortic Valve Trisinus/trileaflet aortic valve. There is no aortic valvular vegetation. There is no aortic stenosis. No aortic valve insufficiency. Pulmonic Valve no vegetations noted. There is no pulmonic valvular stenosis. No pulmonic valve insufficiency. Great Vessels Normal aortic root. Pericardium/Pleural No pericardial effusion. MMode/2D Measurements & Calculations LVIDd: 5.5 cm IVSd: 1.3 cm LVIDs: 4.0 cm LVPWd: 1.4 cm FS: 27.9 % Doppler Measurements & Calculations TR max eloina: 318.6 cm/sec TR max P.6 mmHg ECHO/Echo, Limited Study Interpretation Summary The estimated ejection fraction is 65 %. The left atrium is mildly enlarged. Trivial mitral valve insufficiency. No vegetations visualized Ordering Physician: Vibha Goldsmith Referring Physician: Linn Ware Performed By: Elli Carbajal, RDCS, RVT
--- NOTE | 2023-02-25 13:34 | PN_ITS ---
Subjective Subjective Patient seen and examined. He felt well and had no complaints. He had an uneventful night and review of systems otherwise negative. He has remained hemodynamically stable. Blood cultures are positive for gram-positive cocci but presumed to be staph. Hemoglobin is also down to 6.9 today. Objective Data Objective Data Vital Signs: Vital Signs Temp Pulse Resp BP Pulse Ox O2 Del Method O2 Flow Rate 98.9 F 111 H 16 132/78 H 100 Room Air 2 02/25/23 12:40 02/25/23 12:40 02/25/23 12:40 02/25/23 12:40 02/25/23 12:40 02/25/23 12:40 02/23/23 14:00 Oxygen Flow Rate (L/min) 2 Oxygen Delivery Method Room Air Weight: 213 lb 10.047 oz Body Mass Index (BMI) 32.4 Intake & Output: Intake and Output for Last 24 Hours 02/23/23 02/24/23 02/25/23 23:59 23:59 23:59 Intake Total 3442 / 3552 4590 / 4590 2120 / 2120 Output Total 650 / 650 3300 / 3300 725 / 725 Balance 2792 / 2902 1290 / 1290 1395 / 1395 Lab / Micro Data 02/25/23 07:27 02/25/23 07:27 Labs: Laboratory Results - last 24 hr 02/23/23 05:55: CLAU-1 Antibody <0.2, SS-A/Ro IgG Antibody < 0.2, SS-B/La IgG Antibody < 0.2, Sm ([place]) Antibody <0.2, LAST DIPPER Antibody <0.2, Scl-70 Scleroderma Ab 0.5, Double Strand DNA Ab <1, Centromere B Antibody <0.2, Anti-Mitochondrial Ab <20.0 02/25/23 07:27: WBC 6.8, RBC 2.14 L, Hgb 6.9 L, Hct 21.5 L, MCV 100.5 H, MCH 32.2 H, MCHC 32.1, RDW Std Deviation 57.0 H, RDW Coeff of [place] 15.5 H, Plt Count 64 L, MPV 12.2 H, Immature Gran % (Auto) 1.200 H, Neut % (Auto) 61.5, Lymph % (Auto) 12.6 L, [place] % (Auto) 21.8 H, Eos % (Auto) 2.5, Baso % (Auto) 0.4, Absolute Neuts (auto) 4.2, Absolute Lymphs (auto) 0.86, Nucleated RBC % 0, Sodium 131 L, Potassium 4.3, Chloride 103, Carbon Dioxide 17.0 L, Anion Gap 11, BUN 21 H, Creatinine 6.55 H, Estim Creat Clear Calc 16.10, Est GFR (MDRD) Af Amer 13 L, Est GFR (MDRD) Non-Af 11 L, BUN/Creatinine Ratio 3.2 L, Glucose 112 H , Calcium 7.5 L, Total Bilirubin 3.50 H, AST 151 H, ALT 100 H, Alkaline Phospha tase 325 H, Total Protein 5.8 L, Albumin 1.6 L, Globulin 4.2, Albumin/Globulin Ratio 0.4 L 02/25/23 09:34: Blood Type O POSITIVE, Antibody Screen NEGATIVE, Crossmatch See Detail Micro: Microbiology 02/23/23 17:47 Blood Culture (Wb) - Venous Bacteria Detection (PCR) - Final Staphylococcus epidermidis mecA Resistance Marker 02/23/23 17:47 Blood Culture (Wb) - Venous Blood Culture - Preliminary Staphylococcus epidermidis 02/23/23 18:03 Blood Culture (Wb) - Anticubital Right Blood Culture - Preliminary Physical Exam Const alert, oriented x3, no apparent distress and well nourished General Appearance: cooperative and well developed HEENT normocephalic, head/scalp atraumatic, moist oral mucous membranes and oropharynx normal Eyes PERRL and EOMs intact bilaterally Neck no lymphadenopathy, supple and no JVD Lymph Lymphatic: no lymphadenopathy noted and no lymphedema noted Resp Resp Narrative: Diminished breath sounds bibasally, no wheezes or crackles. On room air Cardio regular rhythm, S1 normal heart sound, S2 normal heart sound and no murmurs Cardio Narrative: tachycardic GI normal to inspection, nondistended, normoactive bowel sounds, soft to palpation, non-tender and non-distended Extremity normal capillary refill, no clubbing, cyanosis or edema and no calf tenderness Skin General Skin Exam: no breakdown Neuro CN's II-XII intact bilaterally, no focal motor deficits and no sensory deficits noted Motor Exam: strength 5/5 throughout and general weakness Psych thought process normal, cooperative and affect normal Appearance: appropriate Assessment & Plan Assessment/Plan (1) Acute diverticulitis: (2) ESRD (end stage renal disease): (3) Chronic renal failure: (4) Syncope: PLAN: Plan #Acute diverticulitis * as per CT scan of the abdomen and pelvis * on IV zosyn * gastroenterology on board. * on clear liquid diet * #Gram positive bacteremia * 2 out of 2 blood cultures growing gram-positive cocci- Staph epidermidis. Will check MRSA PCR. Start on IV vancomycin with dialysis. He will get dialysis on Mondays we will give a dose today. * #Acute on chronic anemia * Hb 6.9. Will transfuse 1 unit of packed red blood cells. He is already on IV PPI due to history of peptic ulcer disease. * Will check stool for occult blood. * #Hypertension * came in with hypertensive urgency which has now resolved. * nephrology on board * on clonidine, amlodipine, doxazosin and labetalol * on IV metoprolol prn * * #Elevated troponins * 2D echo showed EF of 65% with no evidence of diastolic dysfunction and mildly enlarged left atrium as well as concentric LV hypertrophy * was likely due to troponin leak from hypertensive urgency. * stable * * #ESRD: on hemodialysis MWF. nephrology on board #Elevated liver enzymes * liver USG showed hepatomegaly and echogenic liver consistent with fatty infiltration, with no evidence of cholelithiasis. * gastroenterology on board. Liver enzymes have started trending downwards. * tylenol levels and alcohol levels were normal * he got N acetyl cysteine. * labs sent to screen for chronic liver disease, such as Ari's diseaes, autoimmune hepatitis, primary biliary cirrhosis * GI on board #Multiple sclerosis: not on any regimen. #Peptic ulcer disease: on IV PPI #Nicotine dependence: counseled to quit. Nicotine patch 21mg daily. #Anxiety and depression as well as bipolar disorder: had a suicide attempt with ingestion of bleach and vodka in May 2021. DVT prophylaxis: dc heparin and start on SCDs Charges/Coding Visit Charges Inpatient E&M: 87168 Subs Hosp L3
[2023-02-25] MEDS: 0.9% Normal Saline (1000mL) 1,000 ML 100 ML IV (13:53)
[2023-02-25] MEDS: Vancomycin HCl 2,000 MG in 0.9% Normal Saline (500mL Bag) 500 ML 250 MG IV (13:53)
[2023-02-25] MEDS: cloNIDine HCl 0.1 MG Tablet 0.3 MG PO ×2 (13:54→20:42)
--- NOTE | 2023-02-25 15:10 | PCM.RX.CS ---
Consult Antibiotic Management Pharmacy has been consulted to manage selected antiobiotic: Vancomycin Type of Intervention Type of Consult: New start Suspected Infection Suspected Infection: Bacteremia Prior Doses of Antibiotics Prior Doses of Antibiotics Received/Current Regimen: Given 2000mg iv x 1 on 02.25.23 @1353. Labs Labs: Sodium 131 mmol/L (136-145) L 02/25/23 07:27 Potassium 4.3 mmol/L (3.5-5.1) 02/25/23 07:27 Chloride 103 mmol/L (98-107) 02/25/23 07:27 Carbon Dioxide 17.0 mmol/L (21.0-32.0) L 02/25/23 07:27 Anion Gap 11 (5-15) 02/25/23 07:27 BUN 21 mg/dL (7-18) H 02/25/23 07:27 Creatinine 6.55 mg/dL (0.70-1.30) H 02/25/23 07:27 Est GFR (MDRD) Af Amer 13 mL/min (>60) L 02/25/23 07:27 Est GFR (MDRD) Non-Af 11 mL/min (>60) L 02/25/23 07:27 BUN/Creatinine Ratio 3.2 RATIO (10-20) L 02/25/23 07:27 Glucose 112 mg/dL (74-106) H 02/25/23 07:27 Microbiology Microbiology: Microbiology 02/23/23 17:47 Blood Culture (Wb) - Venous Bacteria Detection (PCR) - Final Staphylococcus epidermidis mecA Resistance Marker 02/23/23 17:47 Blood Culture (Wb) - Venous Blood Culture - Preliminary Staphylococcus epidermidis 02/23/23 18:03 Blood Culture (Wb) - Anticubital Right Blood Culture - Preliminary Dosing Weight Weight used for dosin.9 kg Estimated Creatinine Clearance Estimated Creatinine Clearance: 16ml/min Goal Trough Goal Trough: 15-20 mcg/mL Pharmacy Plan for Drug Dosing Pharmacy Plan for Drug Dosing: Patient got dialysis Monday. Given 2000mg iv x 1 today. Random level ordered for Mon02.27.23 in AM before dialysis. Further dosing dependent on random level and dialysis schedule. Pharmacy Service will continue to monitor and adjust dosing as required. Follow-Up Labs Follow-Up Labs: Trough: Other (random level 02.27.23 @0600)
--- NOTE | 2023-02-25 19:14 | PCM.PN.REN ---
Subjective Subjective Following for ESRD. The patient has no new complaint. He denies chest pain, shortness of breath, or nausea. The patient did receive 1 unit of packed red blood cell earlier today. Objective Data Objective Data Vital Signs: Vital Signs Temp Pulse Resp BP Pulse Ox O2 Del Method O2 Flow Rate 98.4 F 102 H 16 132/68 H 100 Room Air 2 02/25/23 17:00 02/25/23 17:00 02/25/23 17:00 02/25/23 17:00 02/25/23 17:00 02/25/23 17:00 02/23/23 14:00 Oxygen Flow Rate (L/min) 2 Oxygen Delivery Method Room Air Weight: 96.9 kg Body Mass Index (BMI) 32.4 Intake & Output: Intake and Output for Last 24 Hours 02/23/23 02/24/23 02/25/23 23:59 23:59 23:59 Intake Total 3442 / 3552 4590 / 4590 3210 / 3210 Output Total 650 / 650 3300 / 3300 1925 / 1925 Balance 2792 / 2902 1290 / 1290 1285 / 1285 Lab / Micro Data 02/25/23 07:27 02/25/23 07:27 Labs: Laboratory Results - last 24 hr 02/25/23 07:27: WBC 6.8, RBC 2.14 L, Hgb 6.9 L, Hct 21.5 L, MCV 100.5 H, MCH 32.2 H, MCHC 32.1, RDW Std Deviation 57.0 H, RDW Coeff of [place] 15.5 H, Plt Count 64 L, MPV 12.2 H, Immature Gran % (Auto) 1.200 H, Neut % (Auto) 61.5, Lymph % (Auto) 12.6 L, [place] % (Auto) 21.8 H, Eos % (Auto) 2.5, Baso % (Auto) 0.4, Absolute Neuts (auto) 4.2, Absolute Lymphs (auto) 0.86, Nucleated RBC % 0, Sodium 131 L, Potassium 4.3, Chloride 103, Carbon Dioxide 17.0 L, Anion Gap 11, BUN 21 H, Creatinine 6.55 H, Estim Creat Clear Calc 16.10, Est GFR (MDRD) Af Amer 13 L, Est GFR (MDRD) Non-Af 11 L, BUN/Creatinine Ratio 3.2 L, Glucose 112 H, Calcium 7.5 L, Total Bilirubin 3.50 H, AST 151 H, ALT 100 H, Alkaline Phosphatase 325 H, Total Protein 5.8 L, Albumin 1.6 L, Globulin 4.2, Albumin/Globulin Ratio 0.4 L 02/25/23 09:34: Blood Type O POSITIVE, Antibody Screen NEGATIVE, Crossmatch See Detail Micro: Microbiology 02/23/23 17:47 Blood Culture (Wb) - Venous Bacteria Detection (PCR) - Final Staphylococcus epidermidis mecA Resistance Marker 02/23/23 17:47 Blood Culture (Wb) - Venous Blood Culture - Preliminary Staphylococcus epidermidis 02/23/23 18:03 Blood Culture (Wb) - Anticubital Right Blood Culture - Preliminary Radiography Diagnostic Testing: Radiology Impression Echocardiogram 02/25/23 11:59 Interpretation Summary The estimated ejection fraction is 65 %. The left atrium is mildly enlarged. Trivial mitral valve insufficiency. No vegetations visualized Ordering Physician: Vibha Goldsmith Referring Physician: Linn Ware Performed By: Elli Carbajal, RDCS, RVT Physical Exam Narrative Alert and oriented x3, no apparent distress S1, S2, rhythm regular, rate mild tachycardia Lung sounds clear Abdomen rounded, soft, hypoactive bowel sounds No edema Tunneled HD catheter right chest dressing clean, dry and intact Left mid arm AV fistula positive thrill and bruit Assessment & Plan Assessment/Plan (1) ESRD (end stage renal disease): (2) Acute diverticulitis: (3) Hypertension: PLAN: Plan Impression/Plan: This is a 27-year-old male with past medical history significant for ESRD on hemodialysis Monday, last dialyzed February 15 who presented to emergency room with complaints of nausea, vomiting and chest pain. Noted to have elevated LFTs, admitted for acute diverticulitis. Noted to have elevated lactic acid. Patient is on IV antibiotics, Zosyn, also on PPI gtt. To note patient had blood cultures drawn on February 14 which resulted in no growth. ESRD on hemodialysis Monday. Patient tolerated dialysis yesterday, 3K bath, very little fluid removal. Patient is near or even at EDW. Outpatient EDW 93kg. No need for HD today. Next hemodialysis session will be on 02/27/23. Anemia in chronic kidney disease. Agree with transfusion with 1 unit of packed red blood cell since hemoglobin is below 7.0 g/dL. The patient is likely less responsive to MICHELLE with current inflammatory state due to diverticulitis. Continue to monitor hemoglobin. Hypertension. BP is controlled on current medications. We will continue current antihypertensives. Monitor BP.
[2023-02-25] MEDS: Doxazosin 4 MG Tablet 8 MG PO (20:42)
[2023-02-25] MEDS: Doxepin Hydrochloride 10 MG Capsule PO (20:42)
[2023-02-26] VITALS (8 sets, daily range): BP systolic 116–139; BP diastolic 72–89; PULSE 102–107; RESP 16–18; TEMP 36.3–36.9; O2SAT 98–100; BMI 32.5
[2023-02-26] MEDS: 0.9% Normal Saline (1000mL) 1,000 ML 100 ML IV ×3 (00:51→21:29)
[2023-02-26] MEDS: cloNIDine HCl 0.1 MG Tablet 0.3 MG PO ×3 (05:59→21:26)
[2023-02-26 07:49] LABS: Absolute Lymphocyte Count 0.98 X10^3/uL (0.83-4.51); Absolute Neutrophil Count 4.2 X10^3/uL (2.0-7.7); Basophil# 0.05 X10^3/uL; Basophil% 0.8 % (0-1); Eosinophils% 3.1 % (0-5); Hematocrit 23.4 % (40-54); Hemoglobin 7.4 g/dL (13.0-16.5); Lymphocyte # 0.98 X10^3/ul (0.83-4.51); Lymphocyte % 15.2 % (19-41); Mean Corp Hgb Conc 31.6 g/dL (32-36); Mean Corpuscular Volume 97.9 fL (80-94); Mean Platelet Vol. 11.9 fl (6.2-12.0); Monocyte# 0.92 X10^3/uL; Monocyte% 14.3 % (0-10); NRBC Flagged by Analyzer 0 % (0-5); Neutrophil # 4.17 X10^3/uL (2.7-7.7); Neutrophil % 64.7 % (47-70); POSITIVE COUNT YES; POSITIVE MORPHOLOGY YES; Platelet Count 65 K/mm3 (150-450); RBC Distribution Width CV 21.2 % (11.6-14.6); RBC Distribution Width SD 77.1 fl (35.1-43.9); Red Blood Count 2.39 M/mm3 (4.6-6.2); White Blood Count 6.4 K/mm3 (4.4-11.0)
[2023-02-26 07:50] LABS: Differential Indicated SCAN CRITERIA MET
[2023-02-26 08:04] LABS: ALB/GLOB Ratio 0.4 RATIO (0.9-2.4); AST(SGOT) 99 U/L (15-37); Alanine Aminotransfer ALT/SGPT 86 U/L (16-61); Albumin, Serum 1.6 g/dL (3.2-5.0); Alkaline Phosphatase 400 U/L (45-117); Anion Gap 7 (5-15); BUN 24 mg/dL (7-18); BUN/Creat Ratio 3.4 RATIO (10-20); Calcium,Total 7.3 mg/dL (8.5-10.1); Chloride 110 mmol/L (98-107); Creatinine, Serum 7.12 mg/dL (0.70-1.30); EST Glomerular Filtration Rate 10 mL/min (>60); Est Glom Filt Rate - Afr Amer 12 mL/min (>60); Estimated Creatinine Clearance 14.81 ml/min; Globulin 4.3 g/dL (2.2-4.2); Glucose 104 mg/dL (74-106); Potassium 4.3 mmol/L (3.5-5.1); Protein, Total 5.9 g/dL (6.4-8.2); Sodium Level 136 mmol/L (136-145)
[2023-02-26 08:26] LABS: Anisocytosis 2+; Platelet Estimate MKD DEC (ADEQ)
--- NOTE | 2023-02-26 09:57 | PN_ITS ---
Subjective Subjective Patient seen and examined. He had no complaints and had an uneventful night. Review of systems is otherwise negative. Repeat blood cultures pending. 2D echo showed no evidence of vegetations. Objective Data Objective Data Vital Signs: Vital Signs Temp Pulse Resp BP Pulse Ox O2 Del Method O2 Flow Rate 98.4 F 106 H 16 139/75 H 100 Room Air 2 02/26/23 06:00 02/26/23 06:00 02/26/23 06:00 02/26/23 06:00 02/26/23 06:00 02/26/23 06:00 02/23/23 14:00 Oxygen Flow Rate (L/min) 2 Oxygen Delivery Method Room Air Weight: 213 lb 13.574 oz Body Mass Index (BMI) 32.5 Intake & Output: Intake and Output for Last 24 Hours 02/24/23 02/25/23 02/26/23 23:59 23:59 23:59 Intake Total 4590 / 4590 4320 / 4800 960 / 960 Output Total 3300 / 3300 1925 / 2725 1450 / 1450 Balance 1290 / 1290 2395 / 2075 -490 / -490 Lab / Micro Data 02/26/23 07:32 02/26/23 07:32 Labs: Laboratory Results - last 24 hr 02/25/23 09:34: Blood Type O POSITIVE, Antibody Screen NEGATIVE, Crossmatch See Detail 02/26/23 07:32: WBC 6.4, RBC 2.39 L, Hgb 7.4 L, Hct 23.4 L, MCV 97.9 H, MCH 31.0, MCHC 31.6 L, RDW Std Deviation 77.1 H, RDW Coeff of [place] 21.2 H, Plt Count 65 L, MPV 11.9, Immature Gran % (Auto) 1.900 H, Neut % (Auto) 64.7, Lymph % (Auto) 15.2 L, [place] % (Auto) 14.3 H, Eos % (Auto) 3.1, Baso % (Auto) 0.8, Absolute Neuts (auto) 4.2, Absolute Lymphs (auto) 0.98, Nucleated RBC % 0, Platelet Estimate MKD DEC, Anisocytosis 2+, Sodium 136, Potassium 4.3, Chloride 110 H, Carbon Dioxide 19.0 L, Anion Gap 7, BUN 24 H, Creatinine 7.12 H, Estim Creat Clear Calc 14.81, Est GFR (MDRD) Af Amer 12 L, Est GFR (MDRD) Non-Af 10 L, BUN/Creatinine Ratio 3.4 L, Glucose 104, Calcium 7.3 L, Total Bilirubin 3.50 H, AST 99 H, ALT 86 H, Alkaline Phosphatase 400 H, Total Protein 5.9 L, Albumin 1.6 L, Globulin 4.3 H, Albumin/Globulin Ratio 0.4 L Micro: Microbiology 02/23/23 17:47 Blood Culture (Wb) - Venous Bacteria Detection (PCR) - Final Staphylococcus epidermidis mecA Resistance Marker 02/23/23 17:47 Blood Culture (Wb) - Venous Blood Culture - Preliminary Staphylococcus epidermidis 02/23/23 18:03 Blood Culture (Wb) - Anticubital Right Blood Culture - Preliminary Streptococcus group B Radiography Diagnostic Testing: Radiology Impression Echocardiogram 02/25/23 11:59 Interpretation Summary The estimated ejection fraction is 65 %. The left atrium is mildly enlarged. Trivial mitral valve insufficiency. No vegetations visualized Ordering Physician: Vibha Goldsimth Referring Physician: Linn Ware Performed By: Elli Carbajal, RDCS, RVT Physical Exam Const alert, oriented x3, no apparent distress and well nourished General Appearance: cooperative and well developed HEENT normocephalic, head/scalp atraumatic, moist oral mucous membranes and oropharynx normal Eyes PERRL and EOMs intact bilaterally Neck no lymphadenopathy, supple and no JVD Lymph Lymphatic: no lymphadenopathy noted and no lymphedema noted Resp Resp Narrative: Diminished breath sounds bibasally, no wheezes or crackles. On room air Cardio regular rhythm, S1 normal heart sound, S2 normal heart sound and no murmurs Cardio Narrative: mildly tachycardic GI normal to inspection, nondistended, normoactive bowel sounds, soft to palpation, non-tender and non-distended Extremity normal capillary refill, no clubbing, cyanosis or edema and no calf tenderness Skin Skin Narrative: dialysis catheter as well as AV fistula in place General Skin Exam: no breakdown Neuro CN's II-XII intact bilaterally, no focal motor deficits and no sensory deficits noted Motor Exam: strength 5/5 throughout and general weakness Psych thought process normal, cooperative and affect normal Appearance: appropriate Assessment & Plan Assessment/Plan (1) Acute diverticulitis: (2) ESRD (end stage renal disease): (3) Chronic renal failure: (4) Syncope: PLAN: Plan #Acute diverticulitis * as per CT scan of the abdomen and pelvis * on IV zosyn * gastroenterology on board. * on clear liquid diet * #Gram positive bacteremia * blood cultures growing gram-positive cocci- Staph epidermidis and Strep group B. Started on IV vancomycin yesterday. IV zosyn discontinued. * 2D echo done yesterday showed no evidence of vegetation. ID consulted. * repeat blood cultures pending * he has both a dialysis catheter and filter in place * the dialysis catheter may need to come out due to the positive blood cultures, and as he is using the AV fistula for dialysis now * #Acute on chronic anemia * s/p transfusion of one unit of PRBC * on IV pantoprazole. He has a history of peptic ulcer disease * stool for occult blood pending * GI already on board * #Hypertension * came in with hypertensive urgency which has now resolved. * nephrology on board * on clonidine, amlodipine, doxazosin and labetalol * on IV metoprolol prn * * #Elevated troponins * 2D echo showed EF of 65% with no evidence of diastolic dysfunction and mildly enlarged left atrium as well as concentric LV hypertrophy * was likely due to troponin leak from hypertensive urgency. * stable * #ESRD: on hemodialysis MWF. nephrology on board #Elevated liver enzymes * liver [facility]G showed hepatomegaly and echogenic liver consistent with fatty infiltration, with no evidence of cholelithiasis. * gastroenterology on board. liver enzymes still elevated but trending downwards. * tylenol levels and alcohol levels were normal * he got N acetyl cysteine. * labs sent to screen for chronic liver disease, such as Ari's disease, autoimmune hepatitis, primary biliary cirrhosis * GI on board #Multiple sclerosis: not on any regimen. #Peptic ulcer disease: on IV PPI #Nicotine dependence: counseled to quit. Nicotine patch 21mg daily. #Anxiety and depression as well as bipolar disorder: had a suicide attempt with ingestion of bleach and vodka in May 2021. DVT prophylaxis: SCDs Charges/Coding Visit Charges Inpatient E&M: 01046 Subs Hosp L2
[2023-02-26] MEDS: Minoxidil 2.5 MG Tablet 5 MG PO (11:06)
[2023-02-26] MEDS: amLODIPine 10 MG Tablet PO ×2 (11:06→21:25)
[2023-02-26] MEDS: Labetalol 200 MG Tablet PO ×3 (11:07→17:21)
[2023-02-26] MEDS: Pantoprazole Sodium 40 MG in 0.9% Normal Saline (100mL MB+) 100 ML 330 MG IV ×2 (11:10→21:29)
[2023-02-26] MEDS: Doxazosin 4 MG Tablet 8 MG PO (21:26)
[2023-02-26] MEDS: Doxepin Hydrochloride 10 MG Capsule PO (21:26)
[2023-02-27] VITALS (19 sets, daily range): BP systolic 106–209; BP diastolic 66–88; PULSE 84–99; RESP 16–18; TEMP 36.3–36.9; O2SAT 97–100; BMI 34.9; BMI 34.0
[2023-02-27] MEDS: cloNIDine HCl 0.1 MG Tablet 0.3 MG PO ×3 (05:10→22:01)
[2023-02-27 05:59] LABS: Absolute Lymphocyte Count 1.13 X10^3/uL (0.83-4.51); Absolute Neutrophil Count 4.5 X10^3/uL (2.0-7.7); Basophil# 0.08 X10^3/uL; Basophil% 1.1 % (0-1); Eosinophil# 0.27 X10^3/uL; Eosinophils% 3.7 % (0-5); Hematocrit 22.8 % (40-54); Hemoglobin 7.1 g/dL (13.0-16.5); Lymphocyte # 1.13 X10^3/ul (0.83-4.51); Lymphocyte % 15.6 % (19-41); Mean Corp Hgb Conc 31.1 g/dL (32-36); Mean Corpuscular Hgb 30.7 pg (27.0-32.0); Mean Corpuscular Volume 98.7 fL (80-94); Mean Platelet Vol. 11.5 fl (6.2-12.0); Monocyte# 0.91 X10^3/uL; Monocyte% 12.6 % (0-10); NRBC Flagged by Analyzer 0 % (0-5); Neutrophil # 4.53 X10^3/uL (2.7-7.7); Neutrophil % 62.4 % (47-70); POSITIVE COUNT YES; POSITIVE MORPHOLOGY YES; Platelet Count 89 K/mm3 (150-450); RBC Distribution Width CV 21.1 % (11.6-14.6); RBC Distribution Width SD 77.4 fl (35.1-43.9); Red Blood Count 2.31 M/mm3 (4.6-6.2); White Blood Count 7.3 K/mm3 (4.4-11.0)
[2023-02-27 06:00] LABS: Differential Indicated SCAN CRITERIA MET
[2023-02-27 06:45] LABS: ALB/GLOB Ratio 0.3 RATIO (0.9-2.4); AST(SGOT) 86 U/L (15-37); Alanine Aminotransfer ALT/SGPT 75 U/L (16-61); Albumin, Serum 1.6 g/dL (3.2-5.0); Alkaline Phosphatase 513 U/L (45-117); Anion Gap 4 (5-15); BUN 26 mg/dL (7-18); BUN/Creat Ratio 3.7 RATIO (10-20); Calcium,Total 7.7 mg/dL (8.5-10.1); Chloride 112 mmol/L (98-107); Creatinine, Serum 7.11 mg/dL (0.70-1.30); EST Glomerular Filtration Rate 10 mL/min (>60); Est Glom Filt Rate - Afr Amer 12 mL/min (>60); Estimated Creatinine Clearance 14.83 ml/min; Globulin 4.6 g/dL (2.2-4.2); Glucose 103 mg/dL (74-106); Potassium 4.4 mmol/L (3.5-5.1); Protein, Total 6.2 g/dL (6.4-8.2); Sodium Level 133 mmol/L (136-145)
[2023-02-27 06:50] LABS: Vancomycin, Random Level 21.8 ug/mL (0.0-15.0)
[2023-02-27 07:07] LABS: Anisocytosis 2+; Macrocytosis 1+; Platelet Estimate MOD DEC (ADEQ)
[2023-02-27 07:08] LABS: Hypochromasia 1+
--- NOTE | 2023-02-27 07:34 | PCM.RX.CS ---
Consult Antibiotic Management Pharmacy has been consulted to manage selected antiobiotic: Vancomycin Type of Intervention Type of Consult: Follow-up Suspected Infection Suspected Infection: Bacteremia Prior Doses of Antibiotics Prior Doses of Antibiotics Received/Current Regimen: 02/25/23 @ 1353 Vancomycin 2000mg x1 Labs Labs: Sodium 133 mmol/L (136-145) L 02/27/23 05:50 Potassium 4.4 mmol/L (3.5-5.1) 02/27/23 05:50 Chloride 112 mmol/L (98-107) H 02/27/23 05:50 Carbon Dioxide 17.0 mmol/L (21.0-32.0) L 02/27/23 05:50 Anion Gap 4 (5-15) L 02/27/23 05:50 BUN 26 mg/dL (7-18) H 02/27/23 05:50 Creatinine 7.11 mg/dL (0.70-1.30) H 02/27/23 05:50 Est GFR (MDRD) Af Amer 12 mL/min (>60) L 02/27/23 05:50 Est GFR (MDRD) Non-Af 10 mL/min (>60) L 02/27/23 05:50 BUN/Creatinine Ratio 3.7 RATIO (10-20) L 02/27/23 05:50 Glucose 103 mg/dL (74-106) 02/27/23 05:50 Random Vancomycin 21.8 ug/mL (0.0-15.0) H 02/27/23 05:50 Microbiology Microbiology: Microbiology 02/23/23 17:47 Blood Culture (Wb) - Venous Bacteria Detection (PCR) - Final Staphylococcus epidermidis mecA Resistance Marker 02/23/23 17:47 Blood Culture (Wb) - Venous Blood Culture - Final Staphylococcus epidermidis 02/23/23 18:03 Blood Culture (Wb) - Anticubital Right Blood Culture - Final Streptococcus agalactiae (B) Dosing Weight Weight used for dosin kg Estimated Creatinine Clearance Estimated Creatinine Clearance: 15 Pharmacy Plan for Drug Dosing Pharmacy Plan for Drug Dosing: Random vancomycin level 02/27/23 is 21.8. no doses of vancomycin ordered. Vancomycin random level 02/27/23 0600 Pharmacy Service will continue to monitor and adjust dosing as required. Date/Time Labs Ordered Labs to be done on [date and time ordered]: random vancomycin level 03/01/23 @0600
[2023-02-27] MEDS: Labetalol 200 MG Tablet PO ×2 (08:16→17:11)
[2023-02-27] MEDS: 0.9% Normal Saline (1000mL) 1,000 ML 100 ML IV (08:17)
[2023-02-27] MEDS: amLODIPine 10 MG Tablet PO ×2 (08:49→22:02)
[2023-02-27] MEDS: Minoxidil 2.5 MG Tablet 5 MG PO (08:49)
[2023-02-27] MEDS: Pantoprazole Sodium 40 MG in 0.9% Normal Saline (100mL MB+) 100 ML 330 MG IV ×2 (08:50→22:00)
--- NOTE | 2023-02-27 11:53 | PCM.PN.REN ---
Subjective Subjective No new complaints Objective Data Objective Data Vital Signs: Vital Signs Temp Pulse Resp BP Pulse Ox O2 Del Method O2 Flow Rate 97.3 F L 94 18 134/67 H 100 Room Air 2 02/27/23 08:15 02/27/23 08:15 02/27/23 08:15 02/27/23 08:15 02/27/23 08:15 02/27/23 08:15 02/23/23 14:00 Oxygen Flow Rate (L/min) 2 Oxygen Delivery Method Room Air Weight: 104.3 kg Body Mass Index (BMI) 34.9 Intake & Output: Intake and Output for Last 24 Hours 02/25/23 02/26/23 02/27/23 23:59 23:59 23:59 Intake Total 4320 / 4800 3900 / 4380 1950 / 1950 Output Total 1925 / 2725 2300 / 2650 850 / 850 Balance 2395 / 2075 1600 / 1730 1100 / 1100 Lab / Micro Data 02/27/23 05:50 02/27/23 05:50 Labs: Laboratory Results - last 24 hr 02/27/23 05:50: WBC 7.3, RBC 2.31 L, Hgb 7.1 L, Hct 22.8 L, MCV 98.7 H, MCH 30.7, MCHC 31.1 L, RDW Std Deviation 77.4 H, RDW Coeff of [place] 21.1 H, Plt Count 89 L, MPV 11.5, Immature Gran % (Auto) 4.600 H, Neut % (Auto) 62.4, Lymph % (Auto) 15.6 L, [place] % (Auto) 12.6 H, Eos % (Auto) 3.7, Baso % (Auto) 1.1 H, Absolute Neuts (auto) 4.5, Absolute Lymphs (auto) 1.13, Nucleated RBC % 0, Platelet Estimate MOD DEC, Hypochromasia 1+, Anisocytosis 2+, Macrocytosis 1+, Sodium 133 L, Potassium 4.4, Chloride 112 H, Carbon Dioxide 17.0 L, Anion Gap 4 L, BUN 26 H, Creatinine 7.11 H, Estim Creat Clear Calc 14.83, Est GFR (MDRD) Af Amer 12 L, Est GFR (MDRD) Non-Af 10 L, BUN/Creatinine Ratio 3.7 L, Glucose 103, Calcium 7.7 L, Total Bilirubin 2.80 H, AST 86 H, ALT 75 H, Alkaline Phosphatase 513 H, Total Protein 6.2 L, Albumin 1.6 L, Globulin 4.6 H, Albumin/Globulin Ratio 0.3 L, Random Vancomycin 21.8 H Micro: Microbiology 02/23/23 17:47 Blood Culture (Wb) - Venous Bacteria Detection (PCR) - Final Staphylococcus epidermidis mecA Resistance Marker 02/23/23 17:47 Blood Culture (Wb) - Venous Blood Culture - Final Staphylococcus epidermidis 02/23/23 18:03 Blood Culture (Wb) - Anticubital Right Blood Culture - Final Streptococcus agalactiae (B) Physical Exam Narrative Alert and oriented x3, no apparent distress S1, S2, rhythm regular, rate mild tachycardia Lung sounds clear Abdomen rounded, soft, hypoactive bowel sounds No edema Tunneled HD catheter right chest dressing clean, dry and intact Left mid arm AV fistula positive thrill and bruit Assessment & Plan Assessment/Plan (1) ESRD (end stage renal disease): (2) Acute diverticulitis: (3) Hypertension: PLAN: Plan Impression/Plan: This is a 27-year-old male with past medical history significant for ESRD on hemodialysis Monday, last dialyzed February 15 who presented to emergency room with complaints of nausea, vomiting and chest pain. Noted to have elevated LFTs, admitted for acute diverticulitis ESRD on hemodialysis Monday. Dialysis arranged for today Anemia in chronic kidney disease. Agree with transfusion with 1 unit of packed red blood cell since hemoglobin is below 7.0 g/dL. The patient is likely less responsive to MICHELLE with current inflammatory state due to diverticulitis. Continue to monitor hemoglobin. Bacteremia. Blood culture positive for strep. Staph. Catheter site does not look infected. Called and spoke to staff at dialysis unit. AV fistula has been cannulated for about 3 weeks now. We were in the process of having this catheter removed next week or so but in view of bacteremia we will go ahead and have this removed. Placed a consult for surgery. Discussed with hospitalist
[2023-02-27] MEDS: PureFlow B 2K Dialysis Soln 1 BAG 6 BAG PF (13:17)
--- NOTE | 2023-02-27 14:20 | CON.PCM.SX_ITS ---
Assessment & Plan Assessment/Plan (1) Status post insertion of hemodialysis catheter: PLAN: This is a 27-year-old male with a history of ESRD on HD dialyzed via left upper extremity AV fistula finalized by Dr. Rowell December 2022. Patient has had repeated questions of possible bacteremia, however most recent blood cultures appear to show skin contaminants. There is no exam evidence of infection with patient's catheter. Yet, he is being dialyzed successfully via his left upper extremity AV fistula and with these other concerns I find it reasonable to pursue catheter extraction. Patient has been posted for catheter extraction und er sedation in the operating room given his bleeding risk. Please make patient n.p.o. past midnight and obtain consent as patient has been explained the procedure in detail. Thank you for this consultation and the opportunity to participate in Mr. Ortega Ulloa's care. HPI Consult Data Date of Consult: 02/27/23 HPI Narrative Reason for Consultation: Discontinuation of hemodialysis catheter HPI Narrative: EDU ULLOA, is a 27 M who presented 02/22/2023 with complaints of anterior chest pain, dry heaving, and diagnoses of elevated troponins, acute diverticulitis, and elevated LFTs. He has a history of ESRD and began hemodialysis earlier this year in June after I placed a tunneled hemodialysis catheter via a right internal jugular approach. He confirms that he has done well with this catheter dialysis but ultimately did meet with Dr. Rowell in consultation for left arteriovenous fistula creation. Stage I include a creation of a left upper extremity brachiocephalic AV fistula on 11/14/2022 followed by transposition 12/19/2022. He confirms that he has been dialyzing via this fistula well as an outpatient. There is some report that patient's venous cannulation was suboptimal, but hospital pharmacy technician at bedside states she believes this was due to her stick of the fistula not adherent to the fistula itself. Head dialysis nurse also confirms usability of fistula. General surgery was consulted for consideration of catheter removal after patient has had a number of positive blood cultures with strep agalactiae and Staph epidermidis and unexplained fevers. [facility] Medical History Bipolar 1 disorder Bleach ingestion Chronic renal failure, stage 5 Diastolic heart failure Former smoker GERD (gastroesophageal reflux disease) History of echocardiogram History of renal dialysis History of sepsis Hypertension Insomnia Irritable bowel syndrome (IBS) Multiple sclerosis Problem with dialysis access PUD (peptic ulcer disease) Tinnitus Vision problems Wears contact lenses Home Medications cholecalciferol (vitamin D3) 1,250 mcg (50,000 unit) capsule 1,250 mcg PO QWEEK supplement #12 caps 05/26/22 [Rx Last Taken Unknown] aspirin 81 mg tablet,delayed release 81 mg PO BREAKFAST HEART HEALTH #30 tabs 07/05/22 [Rx Last Taken Unknown] minoxidil 2.5 mg tablet 5 mg (2 x 2.5 mg) PO DAILY hair growth #60 tabs 07/05/22 [Rx Last Taken 12/19/22] amlodipine 10 mg tablet 10 mg PO BID BLOOD PRESSURE #180 tabs 07/21/22 [Rx Last Taken 12/19/22] doxazosin 8 mg tablet 8 mg PO QHS BLOOD PRESSURE #90 tabs 07/21/22 [Rx Last Taken Unknown] clonidine 0.3 mg/24 hr weekly transdermal patch 1 patch transdermal QWEEK bp #4 ea 08/02/22 [Rx Last Taken 12/19/22] lurasidone 20 mg tablet See Rx Instructions .Route .COMPLEX bipolar #30 tabs 01/18/23 [Rx Last Taken Unknown] ondansetron 4 mg disintegrating tablet 4 mg PO Q8H PRN PRN Nausea #30 tabs 02/14/23 [Rx Last Taken Unknown] labetalol 200 mg tablet 200 mg PO TIDCM BLOOD PRESSURE #90 tabs 02/15/23 [Rx Last Taken Unknown] omeprazole 40 mg capsule,delayed release 40 mg PO DAILY ACID REFLUX #30 caps 02/15/23 [Rx Last Taken Unknown] doxepin 10 mg capsule 10 mg PO depres 02/22/23 [History Last Taken Unknown] Allergy/AdvReac Type Severity Reaction Status Date / Time No Known Allergies Allergy Verified 02/22/23 11:13 Family History Mother Diabetes Hypertension HLD (hyperlipidemia) Anemia Myocardial infarction Heart disease Kidney disease Father Hypertension HLD (hyperlipidemia) Bipolar disorder Diabetes Alcoholism Arthritis Depression Mental disorder Other CVA (cerebral vascular accident) Surgical History Hx of left knee surgery Hx of surgical procedure Hx of vascular surgery S/P arteriovenous (AV) fistula creation Social History household members: none current occupational status: employed and unemployed 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 There is no pericatheter inflammation or tenderness. Resp normal respiratory effort Extremity Extremity Narrative: Patient currently cannulated and left upper extremity AV fistula which does have a palpable thrill Lab / Micro Data 02/27/23 05:50 02/27/23 05:50 Labs: Laboratory Results - last 24 hr 02/27/23 05:50: WBC 7.3, RBC 2.31 L, Hgb 7.1 L, Hct 22.8 L, MCV 98.7 H, MCH 30.7, MCHC 31.1 L, RDW Std Deviation 77.4 H, RDW Coeff of [place] 21.1 H, Plt Count 89 L, MPV 11.5, Immature Gran % (Auto) 4.600 H, Neut % (Auto) 62.4, Lymph % (Auto) 15.6 L, [place] % (Auto) 12.6 H, Eos % (Auto) 3.7, Baso % (Auto) 1.1 H, Absolute Neuts (auto) 4.5, Absolute Lymphs (auto) 1.13, Nucleated RBC % 0, Platelet Estimate MOD DEC, Hypochromasia 1+, Anisocytosis 2+, Macrocytosis 1+, S odium 133 L, Potassium 4.4, Chloride 112 H, Carbon Dioxide 17.0 L, Anion Gap 4 L , BUN 26 H, Creatinine 7.11 H, Estim Creat Clear Calc 14.83, Est GFR (MDRD) Af Amer 12 L, Est GFR (MDRD) Non-Af 10 L, BUN/Creatinine Ratio 3.7 L, Glucose 103, Calcium 7.7 L, Total Bilirubin 2.80 H, AST 86 H, ALT 75 H, Alkaline Phosphatase 513 H, Total Protein 6.2 L, Albumin 1.6 L, Globulin 4.6 H, Albumin/Globulin Ratio 0.3 L, Random Vancomycin 21.8 H Micro: Microbiology 02/23/23 17:47 Blood Culture (Wb) - Venous Bacteria Detection (PCR) - Final Staphylococcus epidermidis mecA Resistance Marker 02/23/23 17:47 Blood Culture (Wb) - Venous Blood Culture - Final Staphylococcus epidermidis 02/23/23 18:03 Blood Culture (Wb) - Anticubital Right Blood Culture - Final Streptococcus agalactiae (B) Charges/Coding Visit Charges Inpatient E&M: 90498 Init Hosp L2
[2023-02-27] MEDS: 0.9% Normal Saline 1,000 ML IV.SOLN. 1000 ML OPERA.SITE (15:11)
--- NOTE | 2023-02-27 15:44 | CON.PCM.ID_ITS ---
Assessment & Plan Assessment/Plan (1) Acute diverticulitis: PLAN: One bcx with CoNS, one bcx with strep; may represent 2 different contam inants. Strep may be related to diverticulitis. Will stop vanc, restart zosyn for abd coverage. Will follow, thank you (2) ESRD (end stage renal disease): HPI Consult Data Date of Consult: 02/27/23 HPI Narrative Reason for Consultation: (+) bcxs HPI Narrative: EDU WILCOX, is a 27 M with ESRD, presented with acute onset chest pain, n/v, not feeling well. No issues with HD cath. Had some mild upper abd pain. No fever or chills. Admitted on zosyn for diverticulitis seen on CT. Changed to vanc due to (+) bcx. Feeling a little better. Full ROS performed and neg except as noted above. [facility] Medical History Bipolar 1 disorder Bleach ingestion Chronic renal failure, stage 5 Diastolic heart failure Former smoker GERD (gastroesophageal reflux disease) History of echocardiogram History of renal dialysis History of sepsis Hypertension Insomnia Irritable bowel syndrome (IBS) Multiple sclerosis Problem with dialysis access PUD (peptic ulcer disease) Tinnitus Vision problems Wears contact lenses Home Medications cholecalciferol (vitamin D3) 1,250 mcg (50,000 unit) capsule 1,250 mcg PO QWEEK supplement #12 caps 05/26/22 [Rx Last Taken Unknown] aspirin 81 mg tablet,delayed release 81 mg PO BREAKFAST HEART HEALTH #30 tabs 07/05/22 [Rx Last Taken Unknown] minoxidil 2.5 mg tablet 5 mg (2 x 2.5 mg) PO DAILY hair growth #60 tabs 07/05/22 [Rx Last Taken 12/19/22] amlodipine 10 mg tablet 10 mg PO BID BLOOD PRESSURE #180 tabs 07/21/22 [Rx Last Taken 12/19/22] doxazosin 8 mg tablet 8 mg PO QHS BLOOD PRESSURE #90 tabs 07/21/22 [Rx Last Taken Unknown] clonidine 0.3 mg/24 hr weekly transdermal patch 1 patch transdermal QWEEK bp #4 ea 08/02/22 [Rx Last Taken 12/19/22] lurasidone 20 mg tablet See Rx Instructions .Route .COMPLEX bipolar #30 tabs 0 01/18/23 [Rx Last Taken Unknown] ondansetron 4 mg disintegrating tablet 4 mg PO Q8H PRN PRN Nausea #30 tabs 02/14/23 [Rx Last Taken Unknown] labetalol 200 mg tablet 200 mg PO TIDCM BLOOD PRESSURE #90 tabs 02/15/23 [Rx Last Taken Unknown] omeprazole 40 mg capsule,delayed release 40 mg PO DAILY ACID REFLUX #30 caps 02/15/23 [Rx Last Taken Unknown] doxepin 10 mg capsule 10 mg PO depres 02/22/23 [History Last Taken Unknown] Allergy/AdvReac Type Severity Reaction Status Date / Time No Known Allergies Allergy Verified 02/22/23 11:13 Family History Mother Diabetes Hypertension HLD (hyperlipidemia) Anemia Myocardial infarction Heart disease Kidney disease Father Hypertension HLD (hyperlipidemia) Bipolar disorder Diabetes Alcoholism Arthritis Depression Mental disorder Other CVA (cerebral vascular accident) Surgical History Hx of left knee surgery Hx of surgical procedure Hx of vascular surgery S/P arteriovenous (AV) fistula creation Social History household members: none current occupational status: employed and unemployed 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[employer], 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 Smoking Status: Former smoker Smokeless tobacco user: other alcohol intake: current alcohol intake frequency: a few times a week details: 4 x a week substance use type: does not use do you feel safe at home: Yes Physical Exam Const alert, oriented x3 and no apparent distress General Appearance: cooperative HEENT normocephalic and head/scalp atraumatic Eyes PERRL and EOMs intact bilaterally Neck supple and No nodes Resp normal air movement and clear to auscultation bilaterally Cardio regular rate and regular rhythm GI soft to palpation, non-tender and non-distended Extremity General Extremity: Negative for edema Skin no rashes or lesions noted Neuro CN's II-XII intact bilaterally Lab / Micro Data Attestation: I reviewed the patient's lab results. 02/27/23 05:50 02/27/23 05:50 Labs: Laboratory Results - last 24 hr 02/27/23 05:50: WBC 7.3, RBC 2.31 L, Hgb 7.1 L, Hct 22.8 L, MCV 98.7 H, MCH 30.7, MCHC 31.1 L, RDW Std Deviation 77.4 H, RDW Coeff of [place] 21.1 H, Plt Count 89 L, MPV 11.5, Immature Gran % (Auto) 4.600 H, Neut % (Auto) 62.4, Lymph % (Auto) 15.6 L, [place] % (Auto) 12.6 H, Eos % (Auto) 3.7, Baso % (Auto) 1.1 H, Absolute Neuts (auto) 4.5, Absolute Lymphs (auto) 1.13, Nucleated RBC % 0, Platelet Estimate MOD DEC, Hypochromasia 1+, Anisocytosis 2+, Macrocytosis 1+, Sodium 133 L, Potassium 4.4, Chloride 112 H, Carbon Dioxide 17.0 L, Anion Gap 4 L, BUN 26 H, Creatinine 7.11 H, Estim Creat Clear Calc 14.83, Est GFR (MDRD) Af Amer 12 L, Est GFR (MDRD) Non-Af 10 L, BUN/Creatinine Ratio 3.7 L, Glucose 103, Calcium 7.7 L, Total Bilirubin 2.80 H, AST 86 H, ALT 75 H, Alkaline Phosphatase 513 H, Total Protein 6.2 L, Albumin 1.6 L, Globulin 4.6 H, Albumin/Globulin R atio 0.3 L, Random Vancomycin 21.8 H Micro: Microbiology 02/23/23 17:47 Blood Culture (Wb) - Venous Bacteria Detection (PCR) - Final Staphylococcus epidermidis mecA Resistance Marker 02/23/23 17:47 Blood Culture (Wb) - Venous Blood Culture - Final Staphylococcus epidermidis 02/23/23 18:03 Blood Culture (Wb) - Anticubital Right Blood Culture - Final Streptococcus agalactiae (B)
--- NOTE | 2023-02-27 16:01 | PN.HOSP_ITS ---
Subjective Subjective Doing well, no issues overnight Objective Data Objective Data Vital Signs: Vital Signs Temp Pulse Resp BP Pulse Ox O2 Del Method O2 Flow Rate 98.4 F 90 16 136/86 H 99 Room Air 2 02/27/23 14:57 02/27/23 15:59 02/27/23 15:59 02/27/23 15:59 02/27/23 14:57 02/27/23 15:59 02/23/23 14:00 Oxygen Flow Rate (L/min) 2 Oxygen Delivery Method Room Air Weight: 229 lb 15.074 oz Body Mass Index (BMI) 34.9 Intake & Output: Intake and Output for Last 24 Hours 02/26/23 02/27/23 02/28/23 03:59 03:59 03:59 Intake Total 4750 / 4750 3900 / 3900 1830 / 1830 Output Total 2725 / 2725 1850 / 1850 850 / 850 Balance 2024 / 2024 205 / 2049 980 / 980 Lab / Micro Data 02/28/23 06:32 02/28/23 06:32 Labs: Laboratory Results - last 24 hr 02/27/23 05:50: WBC 7.3, RBC 2.31 L, Hgb 7.1 L, Hct 22.8 L, MCV 98.7 H, MCH 30.7, MCHC 31.1 L, RDW Std Deviation 77.4 H, RDW Coeff of [place] 21.1 H, Plt Count 89 L, MPV 11.5, Immature Gran % (Auto) 4.600 H, Neut % (Auto) 62.4, Lymph % (Auto) 15.6 L, [place] % (Auto) 12.6 H, Eos % (Auto) 3.7, Baso % (Auto) 1.1 H, Absolute Neuts (auto) 4.5, Absolute Lymphs (auto) 1.13, Nucleated RBC % 0, Platelet Estimate MOD DEC, Hypochromasia 1+, Anisocytosis 2+, Macrocytosis 1+, Sodium 133 L, Potassium 4.4, Chloride 112 H, Carbon Dioxide 17.0 L, Anion Gap 4 L, BUN 26 H, Creatinine 7.11 H, Estim Creat Clear Calc 14.83, Est GFR (MDRD) Af Amer 12 L, Est GFR (MDRD) Non-Af 10 L, BUN/Creatinine Ratio 3.7 L, Glucose 103, Calcium 7.7 L, Total Bilirubin 2.80 H, AST 86 H, ALT 75 H, Alkaline Phosphatase 513 H, Total Protein 6.2 L, Albumin 1.6 L, Globulin 4.6 H, Albumin/Globulin Ratio 0.3 L, Random Vancomycin 21.8 H Micro: Microbiology 02/23/23 17:47 Blood Culture (Wb) - Venous Bacteria Detection (PCR) - Final Staphylococcus epidermidis mecA Resistance Marker 02/23/23 17:47 Blood Culture (Wb) - Venous Blood Culture - Final Staphylococcus epidermidis 02/23/23 18:03 Blood Culture (Wb) - Anticubital Right Blood Culture - Final Streptococcus agalactiae (B) Physical Exam Narrative General: Alert, Oriented x3, Cooperative, No apparent distress HEENT: Atraumatic, PERRLA, EOMI, Normocephalic Oral: Moist Mucosa Neck: Supple, No JVD Lungs: Diminished, Normal air movement, No rhonchi, No wheeze, No rales Cardiovascular: Regular rate, Regular Rhythm, Normal S1, Normal S2, No murmurs Abdomen: Soft, Non Tender, Non-Distended, No Hepato-splenomegaly Extremities: edema, Capillary Refill Less than 3 Seconds Skin: No rashes, No breakdown Musculoskeletal: No Tenderness to Palpation of Joints or Extremities Neurological: Cranial nerves II-XII grossly intact, Motor Exam 5/5 strength throughout, Sensory exam intact to light touch and pain Psych/Mental Status: Normal Affect, Appropriate Assessment & Plan Assessment/Plan (1) ESRD (end stage renal disease): (2) Acute diverticulitis: (3) Hypertension: PLAN: Plan 1. Acute diverticulitis * as per CT scan of the abdomen and pelvis * on IV zosyn * gastroenterology on board. * on clear liquid diet * 2. Gram positive bacteremia ? We will discontinue vancomycin, this is likely contaminant appreciate ID input 3. Acute on chronic anemia * s/p transfusion of one unit of PRBC * on IV pantoprazole. He has a history of peptic ulcer disease * stool for occult blood pending * GI already on board 4. Hypertension/elevated troponins * came in with hypertensive urgency which has now resolved. * nephrology on board * on clonidine, amlodipine, doxazosin and labetalol * on IV metoprolol prn * Echo with an EF of 65% with no evidence of diastolic dysfunction he does have left ventricular hypertrophy, troponin is likely elevated secondary to demand #ESRD: on hemodialysis MWF. nephrology on board #Elevated liver enzymes * liver USG showed hepatomegaly and echogenic liver consistent with fatty inf iltration, with no evidence of cholelithiasis. * gastroenterology on board. liver enzymes still elevated but trending downwards. * tylenol levels and alcohol levels were normal * he got N acetyl cysteine. * labs sent to screen for chronic liver disease, such as Ari's disease, autoimmune hepatitis, primary biliary cirrhosis * GI on board #Multiple sclerosis: not on any regimen. #Peptic ulcer disease: on IV PPI #Nicotine dependence: counseled to quit. Nicotine patch 21mg daily. #Anxiety and depression as well as bipolar disorder: had a suicide attempt with ingestion of bleach and vodka in May 2021. DVT: SCDs Charges/Coding Visit Charges Inpatient E&M: 61937 Subs Hosp L2
[2023-02-27] MEDS: Piperacil/Tazobactam 3.375 GM in 0.9% Normal Saline (50mL MB+) 50 ML IV ×2 (17:15→22:09)
[2023-02-27] MEDS: Doxazosin 4 MG Tablet 8 MG PO (22:02)
[2023-02-27] MEDS: Doxepin Hydrochloride 10 MG Capsule PO (22:03)
[2023-02-28] VITALS (7 sets, daily range): BP systolic 114–129; BP diastolic 73–86; PULSE 87–93; RESP 16; TEMP 36.3–36.8; O2SAT 97–100; BMI 34.4
[2023-02-28] MEDS: 0.9% Normal Saline (1000mL) 1,000 ML 100 ML IV (03:10)
[2023-02-28] MEDS: cloNIDine HCl 0.1 MG Tablet 0.3 MG PO ×2 (06:43→14:38)
[2023-02-28 07:02] LABS: Hematocrit 22.9 % (40-54); Hemoglobin 7.1 g/dL (13.0-16.5); Mean Corpuscular Hgb 30.9 pg (27.0-32.0); Mean Corpuscular Volume 99.6 fL (80-94); Mean Platelet Vol. 12.2 fl (6.2-12.0); POSITIVE COUNT YES; POSITIVE MORPHOLOGY YES; Platelet Count 121 K/mm3 (150-450); RBC Distribution Width CV 20.7 % (11.6-14.6); RBC Distribution Width SD 75.4 fl (35.1-43.9); White Blood Count 6.5 K/mm3 (4.4-11.0)
[2023-02-28 07:08] LABS: Differential Indicated MANUAL DIFF
[2023-02-28 07:24] LABS: Absolute Neutrophil Count 3.9 X10^3/uL (2.0-7.7); Anisocytosis 1+; Basophil 3 % (0-1); Eosinophil 4 % (0-5); Hypochromasia 2+; Lymphocyte 16 % (19-41); Macrocytosis 1+; Metamyelocyte 3 % (0-1); Monocyte 13 % (0-10); Myelocyte 1 % (0-0); Neutrophil # 3.91 X10^3/uL (2.7-7.7); Neutrophil-Band 1 % (0-5); Neutrophil-Segmented 59 % (47-70); Platelet Estimate ADEQUATE (ADEQ); Total Cells Counted 100 (MANUAL DIFF)
[2023-02-28 07:25] LABS: Absolute Lymphocyte Count 1.04 X10^3/uL (0.83-4.51); Lymphocyte # 1.04 X10^3/ul (0.83-4.51)
[2023-02-28 07:27] LABS: ALB/GLOB Ratio 0.4 RATIO (0.9-2.4); AST(SGOT) 80 U/L (15-37); Alanine Aminotransfer ALT/SGPT 66 U/L (16-61); Albumin, Serum 1.6 g/dL (3.2-5.0); Alkaline Phosphatase 496 U/L (45-117); Anion Gap 5 (5-15); BUN 24 mg/dL (7-18); BUN/Creat Ratio 4.1 RATIO (10-20); Calcium,Total 7.6 mg/dL (8.5-10.1); Chloride 110 mmol/L (98-107); EST Glomerular Filtration Rate 12 mL/min (>60); Est Glom Filt Rate - Afr Amer 15 mL/min (>60); Estimated Creatinine Clearance 18.18 ml/min; Globulin 4.5 g/dL (2.2-4.2); Glucose 107 mg/dL (74-106); Potassium 3.9 mmol/L (3.5-5.1); Protein, Total 6.1 g/dL (6.4-8.2); Sodium Level 136 mmol/L (136-145)
--- NOTE | 2023-02-28 08:48 | PCM.PN.REN ---
Subjective Subjective Sitting up in bed. States feeling better. Objective Data Objective Data Vital Signs: Vital Signs Temp Pulse Resp BP Pulse Ox O2 Del Method O2 Flow Rate 98.2 F 92 16 114/76 97 Room Air 2 02/28/23 05:00 02/28/23 05:00 02/28/23 05:00 02/28/23 05:00 02/28/23 05:00 02/28/23 05:00 02/23/23 14:00 Oxygen Flow Rate (L/min) 2 Oxygen Delivery Method Room Air Weight: 102.7 kg Body Mass Index (BMI) 34.4 Intake & Output: Intake and Output for Last 24 Hours 02/26/23 02/27/23 02/28/23 23:59 23:59 23:59 Intake Total 3900 / 4380 3496.67 / 3746.67 410 / 410 Output Total 2300 / 2650 4375 / 4375 Balance 1600 / 1730 -878.33 / -628.33 410 / 410 Lab / Micro Data 02/28/23 06:32 02/28/23 06:32 Labs: Laboratory Results - last 24 hr 02/28/23 06:32: WBC 6.5, RBC 2.30 L, Hgb 7.1 L, Hct 22.9 L, MCV 99.6 H, MCH 30.9, MCHC 31.0 L, RDW Std Deviation 75.4 H, RDW Coeff of [place] 20.7 H, Plt Count 121 L, MPV 12.2 H, Neut % (Auto) Not Reportable, Absolute Neuts (auto) 3.9, Absolute Lymphs (auto) 1.04, Total Counted 100, Neutrophils % (Manual) 59, Band Neutrophils % 1, Lymphocytes % (Manual) 16 L, Monocytes % (Manual) 13 H, Eosinophils % (Manual) 4, Basophils % (Manual) 3 H, Metamyelocytes % 3 H, Myelocytes % 1 H, Diff Path Review May , Platelet Estimate ADEQUATE, Hypochromasia 2+, Anisocytosis 1+, Macrocytosis 1+, Sodium 136, Potassium 3.9, Chloride 110 H, Carbon Dioxide 21.0, Anion Gap 5, BUN 24 H, Creatinine 5.80 H, Estim Creat Clear Calc 18.18, Est GFR (MDRD) Af Amer 15 L, Est GFR (MDRD) Non-Af 12 L, BUN/Creatinine Ratio 4.1 L, Glucose 107 H, Calcium 7.6 L, Total Bilirubin 2.00 H, AST 80 H, ALT 66 H, Alkaline Phosphatase 496 H, Total Protein 6.1 L, Albumin 1.6 L, Globulin 4.5 H, Albumin/Globulin Ratio 0.4 L Micro: Microbiology 02/23/23 17:47 Blood Culture (Wb) - Venous Bacteria Detection (PCR) - Final Staphylococcus epidermidis mecA Resistance Marker 02/23/23 17:47 Blood Culture (Wb) - Venous Blood Culture - Final Staphylococcus epidermidis 02/23/23 18:03 Blood Culture (Wb) - Anticubital Right Blood Culture - Final Streptococcus agalactiae (B) Physical Exam Narrative Alert and oriented x3, no apparent distress S1, S2, rhythm regular, rate mild tachycardia Lung sounds clear Abdomen rounded, soft, hypoactive bowel sounds Trace edema bilateral feet and legs Tunneled HD catheter right chest dressing clean, dry and intact Left mid arm AV fistula positive thrill and bruit Assessment & Plan Assessment/Plan (1) ESRD (end stage renal disease): (2) Acute diverticulitis: (3) Hypertension: PLAN: Plan Impression/Plan: This is a 27-year-old male with past medical history significant for ESRD on hemodialysis Monday, last dialyzed February 15 who presented to emergency room with complaints of nausea, vomiting and chest pain. Noted to have elevated LFTs, admitted for acute diverticulitis - ESRD on hemodialysis Monday. Tolerated dialysis yesterday. No acute indication for HD today. Next dialysis will be tomorrow. - Anemia in chronic kidney disease. The patient is likely less responsive to MICHELLE with current inflammatory state due to diverticulitis. Continue to monitor hemoglobin. Follow hemoglobin trends. Patient will receive iron and MICHELLE at dialysis unit - HTN: bps improved, currently on amlodipine, doxazosin 8mg qd, clonidine 0.3 tid, minoxidil 5mg daily and labetolol 200mg tid - Bacteremia; One blood cx with CONS, one blood cx +strep, antibiotics per ID. Dialysis staff has been using AVF without any issues. Surgery consulted to get TDC removed. - possible discharge to home today after TDC removed.
[2023-02-28] MEDS: Pantoprazole Sodium 40 MG in 0.9% Normal Saline (100mL MB+) 100 ML 330 MG IV (09:58)
[2023-02-28] MEDS: Piperacil/Tazobactam 3.375 GM in 0.9% Normal Saline (50mL MB+) 50 ML IV (10:06)
[2023-02-28] MEDS: Labetalol 200 MG Tablet PO ×2 (10:07→16:33)
--- NOTE | 2023-02-28 11:17 | DCINST_ITS ---
Discharge Instructions Diet Discharge Diet: Renal Diet Activity Discharge Activity: Return to Normal Activity Dressing / Incision Call your doctor if you observe: Fever of 101 or Higher, Shortness of breath, Dizziness, Fainting spells, Swelling in the ankles, Chest pain and Increased palpitations (irregular heartbeat) Follow Up Care Test Results: Test results from this visit will be discussed in further detail at your follow- up appointment, if applicable. Discharge Plan Admission Admit Date/Time: 02/22/23 17:13 Attending Provider: Joe Starr Primary Care Provider: Linn Ware Consulting Providers: Alysha Rico; Soumya Fagan; Avery Cornelius; Vibha Goldsmith; Neftali Abraham Instructions Additional Instructions / Restrictions: Follow-up with your PCP in 3 to 5 days to obtain outpatient lab work to monitor your hemoglobin and creatinine. Discharge Orders/Prescriptions Prescriptions: New amoxicillin-pot clavulanate [Augmentin] 500-125 mg tablet 1 tab PO DAILY Qty: 5 0RF Rx Instructions: Take after dialysis on dialysis days Continued cholecalciferol (vitamin D3) 1,250 mcg (50,000 unit) capsule 1,250 mcg PO QWEEK Qty: 12 0RF amlodipine 10 mg tablet 10 mg PO BID Qty: 180 3RF doxazosin 8 mg tablet 8 mg PO QHS Qty: 90 3RF ondansetron 4 mg tablet,disintegrating 4 mg PO Q8H PRN PRN (Reason: Nausea) Qty: 30 0RF doxepin 10 mg capsule 10 mg PO minoxidil 2.5 mg tablet 5 mg PO DAILY Qty: 60 2RF aspirin 81 mg tablet,delayed release (DR/EC) 81 mg PO BREAKFAST Qty: 30 2RF clonidine 0.3 mg/24 hr patch weekly 1 patch transdermal QWEEK Qty: 4 12RF lurasidone 20 mg tablet See Rx Instructions .ROUTE .COMPLEX Qty: 30 2RF Dose Instruction: TAKE 1 TABLET BY MOUTH EVERY EVENING WITH FOOD (AT LEAST 350 CALORIES) Rx Instructions: TAKE 1 TABLET BY MOUTH EVERY EVENING WITH FOOD (AT LEAST 350 CALORIES) labetalol 200 mg tablet 200 mg PO TIDCM Qty: 90 5RF omeprazole 40 mg capsule,delayed release(DR/EC) 40 mg PO DAILY Qty: 30 5RF Referrals / Follow Up: Linn Ware MD [Primary Care Provider] - Within 1 Week Disposition Disposition (needs filled in before D/C Order can be placed): Home, Self Care
--- NOTE | 2023-02-28 11:35 | PHA.DC.MC.R ---
Pharmacy [facility] Pharmacy Service has performed discharge medication reconciliation and counseling for this patient. The patient's discharge medication list was reviewed for discrepancies and discrepancies were resolved. The patient was counseled on the following discharge medications and changes in medications for homegoing were reviewed. The Reason for Use, instructions for use, and potential side effects were reviewed for all new medications. The patient's questions regarding all of their medications were answered. 1. Amoxicillin/clavulanate 500/125 mg daily x 5 days (take after dialysis on dialysis days) The patient was able to verbally demonstrate an understanding of their discharge medications. Medications at Discharge Home Medications cholecalciferol (vitamin D3) 1,250 mcg (50,000 unit) capsule 1,250 mcg PO QWEEK supplement #12 caps 05/26/22 aspirin 81 mg tablet,delayed release 81 mg PO BREAKFAST HEART HEALTH #30 tabs 07/05/22 minoxidil 2.5 mg tablet 5 mg (2 x 2.5 mg) PO DAILY hair growth #60 tabs 07/05/22 amlodipine 10 mg tablet 10 mg PO BID BLOOD PRESSURE #180 tabs 07/21/22 doxazosin 8 mg tablet 8 mg PO QHS BLOOD PRESSURE #90 tabs 07/21/22 clonidine 0.3 mg/24 hr weekly transdermal patch 1 patch transdermal QWEEK bp #4 ea 08/02/22 lurasidone 20 mg tablet See Rx Instructions .Route .COMPLEX bipolar #30 tabs 01/18/23 ondansetron 4 mg disintegrating tablet 4 mg PO Q8H PRN PRN Nausea #30 tabs 02/14/23 labetalol 200 mg tablet 200 mg PO TIDCM BLOOD PRESSURE #90 tabs 02/15/23 omeprazole 40 mg capsule,delayed release 40 mg PO DAILY ACID REFLUX #30 caps 02/15/23 doxepin 10 mg capsule 10 mg PO depres 02/22/23 amoxicillin 500 mg-potassium clavulanate 125 mg tablet (Augmentin) 1 tab PO DAILY #5 tabs 02/28/23
--- NOTE | 2023-02-28 12:30 | CASEMGMT ---
Patient has order for discharge. RN CM in to review needs at discharge with patient. Patient denies needs at discharge. Patient had no further questions or concerns. RN CM called and notified [facility] that patient will be discharging and returning to his scheduled outpatient HD chair time tomorrow.
[2023-02-28 13:13] LABS: Pathologist Review Reviewed
--- NOTE | 2023-02-28 14:04 | DS.PCM_ITS ---
Providers Date of Admission: 02/22/23 Primary Care Physician: Dr. Linn Ware MD Consultations 02/22/23 18:01 Consult: Gastroenterology Routine Consulting Provider: [facility] Reason for Consult: Elevated LFTs EMERGENT Consult: No MD Notified: Yes Date Notified: 02/22/23 Time Notified: 17:17 Method of Notification: ED Physician Initiated Consult: Nephrology Routine Consulting Provider: Alysha Rico Reason for Consult: Missed 1 week HD, needs HD EMERGENT Consult: No MD Notified: Yes Date Notified: 02/22/23 Time Notified: 18:35 Method of Notification: Answering Service 02/25/23 12:00 Consult: Infectious Disease Routine Consulting Provider: Avery Cornelius Reason for Consult: gram positive bacteremia EMERGENT Consult: No MD Notified: Yes Date Notified: 02/27/23 Time Notified: 06:42 Method of Notification: Answering Service 02/27/23 11:52 Consult: General Surgery Routine Consulting Provider: Neftali Abraham Reason for Consult: catheter removal EMERGENT Consult: No MD Notified: Yes Date Notified: 02/27/23 Time Notified: 11:56 Method of Notification: Text Reason For Visit: NAUSEA VOMITING CHEST PAIN MISSED HD Diagnosis Discharge Diagnosis (1) ESRD (end stage renal disease): Status: Acute Code(s): N18.6 - End stage renal disease (2) Acute diverticulitis: Status: Acute Code(s): K57.92 - Diverticulitis of intestine, part unspecified, without perforation or abscess without bleeding (3) Hypertension: Status: Chronic Code(s): I10 - Essential (primary) hypertension Medications at Discharge Home Medications cholecalciferol (vitamin D3) 1,250 mcg (50,000 unit) capsule 1,250 mcg PO QWEEK supplement #12 caps 05/26/22 aspirin 81 mg tablet,delayed release 81 mg PO BREAKFAST HEART HEALTH #30 tabs 07/05/22 minoxidil 2.5 mg tablet 5 mg (2 x 2.5 mg) PO DAILY hair growth #60 tabs 07/05/22 amlodipine 10 mg tablet 10 mg PO BID BLOOD PRESSURE #180 tabs 07/21/22 doxazosin 8 mg tablet 8 mg PO QHS BLOOD PRESSURE #90 tabs 07/21/22 clonidine 0.3 mg/24 hr weekly transdermal patch 1 patch transdermal QWEEK bp #4 ea 08/02/22 lurasidone 20 mg tablet See Rx Instructions .Route .COMPLEX bipolar #30 tabs 01/18/23 ondansetron 4 mg disintegrating tablet 4 mg PO Q8H PRN PRN Nausea #30 tabs 02/14/23 labetalol 200 mg tablet 200 mg PO TIDCM BLOOD PRESSURE #90 tabs 02/15/23 omeprazole 40 mg capsule,delayed release 40 mg PO DAILY ACID REFLUX #30 caps 02/15/23 doxepin 10 mg capsule 10 mg PO depres 02/22/23 amoxicillin 500 mg-potassium clavulanate 125 mg tablet (Augmentin) 1 tab PO DAILY #5 tabs 02/28/23 Hospital Course Operations None Procedures 2-D Echocardiogram Summary of Care Provided Minutes Spent on Discharge: 39 Hospital Course: Per HPI: The patient is a 26 y/o M w/ PMHx: Anxiety and Depression/Bipolar disorder/Suicide attempt 05/2021 with ingestion of bleach/vodka, HTN, PUD w/ Hx GI Bleed, ESRD on HD MWF following with Dr. Rico, Tobacco use, IBS, Obesity, Multiple sclerosis who presents to the [facility] ED on 02/22/23 with history of anterior chest discomfort although with description patient notes that he feels worse with deep inspiratory effort and also consistent with previous dyspepsia with lightheadedness and dizziness unfortunately passing out when he attempted to go to the restroom with onset of nausea and significant dry heaves in the ED with no recent fevers or chills and prior to this evaluation had denied any abdelrahman sea or emesis or abdominal pain but did have some generalized discomfort on evaluation with missed HD x1 week last on Monday the week prior prompting ED evaluation. Work-up in the ED included T97.1, heart rate 132 initially with most recent repeat 120, BP 169/104 with most recent repeat 179/121, respiratory rate 18, 100% room air, CBC with WBC 6.8, hemoglobin 9.3, MCV 97.9, platelet 133 with increased immature granulocytes and lymphopenia, CMP with sodium 128, chloride 95, carbon oxide 16, anion gap 17, BUN/creatinine 54/8.04, glucose 109, lactic acid initially 4.0 with repeat 5.0 with last noted previous to this 02/07/2023 lactic acid 4.7, calcium 7, T. bili 3.50, AST/ALT 321/164, alk phos 544, troponin 91 with repeat delta 80 end of note patient has intermittently been elevated in the past, Lipase 104, procalcitonin 14.66, acetaminophen less than 2, ethyl alcohol 10, chest x-ray with no acute findings, chest CTA with no acute cardiopulmonary findings, enlarged steatotic liver, CT A/P with enlarged severely steatotic liver, acute sigmoid diverticulitis, EKG with ST with nonspecific ST-T changes with no acute evidence of ischemia. In the ED patient administered IV morphine 4 mg x 1 as well as IV Zofran 4 mg IV x1. Hospital Course: 1. Acute diverticulitis/acute on chronic anemia/elevated LFTs?27-year-old male who has end-stage renal disease secondary to hypertension presents to the hospital with chest pain as well as nausea and vomiting. CT scan of his abdomen and pelvis demonstrated diverticulitis and was started on Zosyn. He does have acute on chronic anemia and gastroenterology was consulted, no need for either an EGD or colonoscopy at this time could be related to his anemia of chronic disease or his diverticulitis. He is slowly improved on the antibiotics and I discussed with him the potential for discharge today he expressed understanding of the risk benefits going home and would like to go home today as tomorrow is his birthday. Will complete 5 more days of antibiotics with Augmentin dosed at 500 mg p.o. daily to be taken after dialysis on the days of dialysis. I discussed his anemia with nephrology who felt that they will likely need to give him EPO shot during his next dialysis session in the meantime we will transfuse 1 more unit of blood today prior to discharge. He did have a liver ultrasound to evaluate his elevated liver enzymes and this showed hepatomegaly with steatosis, I do recommend that he follow-up with staff services manager as an outpatient. Chronic liver disease labs are pending as most of them are send outs. 2. Hypertension with elevated troponins?echo with an EF of 65% and normal diastolic function, his elevated troponins are likely related to his end-stage renal disease as well as demand given his recent illness. No further inpatient work-up is necessary. 3. Gram-positive bacteremia?this was Staph epidermidis as well as a streptococcal and infectious disease was consulted and felt that this was likely contaminant so vancomycin was discontinued. His dialysis catheter was removed on 02/28/2023 as his fistula has matured. 4. Multiple sclerosis, peptic ulcer disease, nicotine dependence, anxiety, depression are all chronic medical conditions which complicate his care. His home medications were continued where appropriate Physical Exam Narrative General: Alert, Oriented x3, Cooperative, No apparent distress HEENT: Atraumatic, PERRLA, EOMI, Normocephalic Oral: Moist Mucosa Neck: Supple, No JVD Lungs: Diminished, Normal air movement, No rhonchi, No wheeze, No rales Cardiovascular: Regular rate, Regular Rhythm, Normal S1, Normal S2, No murmurs Abdomen: Soft, Non Tender, Non-Distended, No Hepato-splenomegaly Extremities: edema, Capillary Refill Less than 3 Seconds Skin: No rashes, No breakdown Musculoskeletal: No Tenderness to Palpation of Joints or Extremities Neurological: Cranial nerves II-XII grossly intact, Motor Exam 5/5 strength throughout, Sensory exam intact to light touch and pain Psych/Mental Status: Normal Affect, Appropriate Weight / BMI Weight Weight: 226 lb 6.636 oz Body Mass Index (BMI) 34.4 ABG / Lab / Microbiology Data 02/28/23 06:32 02/28/23 06:32 Laboratory: Laboratory Results - last 24 hr 02/28/23 06:32: WBC 6.5, RBC 2.30 L, Hgb 7.1 L, Hct 22.9 L, MCV 99.6 H, MCH 30.9, MCHC 31.0 L, RDW Std Deviation 75.4 H, RDW Coeff of [place] 20.7 H, Plt Count 121 L, MPV 12.2 H, Neut % (Auto) Not Reportable, Absolute Neuts (auto) 3.9, Absolute Lymphs (auto) 1.04, Total Counted 100, Neutrophils % (Manual) 59, Band Neutrophils % 1, Lymphocytes % (Manual) 16 L, Monocytes % (Manual) 13 H, Eosinophils % (Manual) 4, Basophils % (Manual) 3 H, Metamyelocytes % 3 H, Myelocytes % 1 H, Diff Path Review Reviewed, Platelet Estimate ADEQUATE, Hypochromasia 2+, Anisocytosis 1+, Macrocytosis 1+, Sodium 136, Potassium 3.9, Chloride 110 H, Carbon Dioxide 21.0, Anion Gap 5, BUN 24 H, Creatinine 5.80 H, Estim Creat Clear Calc 18.18, Est GFR (MDRD) Af Amer 15 L, Est GFR (MDRD) Non-Af 12 L, BUN/Creatinine Ratio 4.1 L, Glucose 107 H, Calcium 7.6 L, Total Bilirubin 2.00 H, AST 80 H, ALT 66 H, Alkaline Phosphatase 496 H, Total Protein 6.1 L, Albumin 1.6 L, Globulin 4.5 H, Albumin/Globulin Ratio 0.4 L 02/28/23 11:50: Blood Type O POSITIVE, Antibody Screen NEGATIVE, Crossmatch See Detail Microbiology: Microbiology 02/23/23 17:47 Blood Culture (Wb) - Venous Bacteria Detection (PCR) - Final Staphylococcus epidermidis mecA Resistance Marker 02/23/23 17:47 Blood Culture (Wb) - Venous Blood Culture - Final Staphylococcus epidermidis 02/23/23 18:03 Blood Culture (Wb) - Anticubital Right Blood Culture - Final Streptococcus agalactiae (B) D/C Instructions Discharge Diet: Renal Diet Call your doctor if you observe: Fever of 101 or Higher, Shortness of breath, Dizziness, Fainting spells, Swelling in the ankles, Chest pain and Increased palpitations (irregular heartbeat) Meaningful Use Info Meaningful Use Diagnoses (Choose all that apply): None applicable Discharge Plan Admission Admit Date/Time: 02/22/23 17:13 Attending Provider: Joe Starr Primary Care Provider: Linn Ware Consulting Providers: Alysha Rico; Soumya Fagan; Avery Cornelius; Vibha Goldsmith; Neftali Abraham Instructions Additional Instructions / Restrictions: Follow-up with your PCP in 3 to 5 days to obtain outpatient lab work to monitor your hemoglobin and creatinine. Discharge Orders/Prescriptions Prescriptions: New amoxicillin-pot clavulanate [Augmentin] 500-125 mg tablet 1 tab PO DAILY Qty: 5 0RF Rx Instructions: Take after dialysis on dialysis days Continued cholecalciferol (vitamin D3) 1,250 mcg (50,000 unit) capsule 1,250 mcg PO QWEEK Qty: 12 0RF amlodipine 10 mg tablet 10 mg PO BID Qty: 180 3RF doxazosin 8 mg tablet 8 mg PO QHS Qty: 90 3RF ondansetron 4 mg tablet,disintegrating 4 mg PO Q8H PRN PRN (Reason: Nausea) Qty: 30 0RF doxepin 10 mg capsule 10 mg PO minoxidil 2.5 mg tablet 5 mg PO DAILY Qty: 60 2RF aspirin 81 mg tablet,delayed release (DR/EC) 81 mg PO BREAKFAST Qty: 30 2RF clonidine 0.3 mg/24 hr patch weekly 1 patch transdermal QWEEK Qty: 4 12RF lurasidone 20 mg tablet See Rx Instructions .ROUTE .COMPLEX Qty: 30 2RF Dose Instruction: TAKE 1 TABLET BY MOUTH EVERY EVENING WITH FOOD (AT LEAST 350 CALORIES) Rx Instructions: TAKE 1 TABLET BY MOUTH EVERY EVENING WITH FOOD (AT LEAST 350 CALORIES) labetalol 200 mg tablet 200 mg PO TIDCM Qty: 90 5RF omeprazole 40 mg capsule,delayed release(DR/EC) 40 mg PO DAILY Qty: 30 5RF Referrals / Follow Up: Linn Ware MD [Primary Care Provider] - Within 1 Week Disposition Disposition (needs filled in before D/C Order can be placed): Home, Self Care Charges/Coding Visit Charges Inpatient E&M: 91920 Disch Hosp >30min
--- NOTE | 2023-02-28 14:06 | PCM.OP.PRO ---
Procedure Report Procedure: Right internal jugular hemodialysis catheter removal Indication: Patient has established left upper extremity AV fistula and does not any longer require tunneled hemodialysis catheter Procedure detail: After describing the procedure and obtaining the patient's written consent, the patient was placed supine on the exam chair and a timeout was conducted to confirm patient and the procedure. Procedure was begun by raising a wheal of local anesthetic along the patient's tunneled catheter with 10 mL 1% lidocaine. Once anesthetized, the catheter exit site from the subcutaneous tunnel was bluntly opened. Additional blunt dissection was used to disrupt soft tissue attachments to the catheter as proximally as the length of the clamp permitted. Patient's catheter cuff was located fairly distally in the tunneling tract and this afforded us adequate exposure to sharply dissect the cuff from the tunneling tract. Gentle traction was placed on the catheter, but it was still found to be anchored into its tract. I found a few posterior attachments to the cuff and sharply lysed these adhesions. Again, gentle traction was applied to the catheter and this time it easily withdrew from the tract. Manual pressure was maintained for a period of 4 minutes. After this time, both the neck and the tunneling site were examined for hemostasis. Finding these to be intact, the skin edges were trimmed and the tunneling tract opening was closed with interrupted 3-0 nylon suture. Additional pressure was applied over the incisions to ensure hemostasis. Then the area was cleansed and Steri-Strips were applied to these incisions. Lastly a OpSite bandage was applied as a dressing. Patient was gradually return to a sitting position. Finding the site to be free of evidence of hematoma, the patient was provided with wound care instructions. Estimated blood loss: 10 mL Complications: None
[2023-02-28] MEDS: Minoxidil 2.5 MG Tablet 5 MG PO (14:21)
--- NOTE | 2023-02-28 18:17 | NURSING ---
1550-blood completed and no immediate sign of reaction obs. pt dc papers given. pt to monitor for signs of bleeding and infection post dialysis catheter remmoval. belongings given back that were locked up in [place]. pt to call when ride comes for dc
[2023-03-06 17:07] LABS: Albumin 2.5 g/dL (2.9-4.4); Alpha-1-Globulins 0.2 g/dL (0.0-0.4); Alpha-2-Globulins 0.7 g/dL (0.4-1.0); Anti-Smooth Muscle ABS 14 Units (0-19); Ceruloplasmin 14.3 mg/dL (16.0-31.0); Copper, Serum or Plasma 64 ug/dL (63-121); Cytoplasmic Ab (C-ANCA) 1:20 titer (Neg:<1:20); Deamidated Gliadin IgA 8 units (0-19); Deamidated Gliadin IgG 2 units (0-19); Endomysial Antibody IgA Negative (Negative); Gamma Globulin 2.1 g/dL (0.4-1.8); HEPATITIS B SURFACE AG Negative (Negative); Haptoglobin 54 mg/dL (17-317); Hep C Antibodies Non Reactive (Non Reactive); Hepatitis A IgM Antibody Negative (Negative); Hepatitis B Core AB IgM Negative (Negative); Immunoglobulin A 426 mg/dL (90-386); Immunoglobulin G 2249 mg/dL (603-1613); Immunoglobulin M 146 mg/dL (20-172); PROEL- TOTAL PROTEIN 6.2 g/dL (6.0-8.5); Perinuclear Ab (P-ANCA) <1:20 titer (Neg:<1:20); t-Transglutaminase IgA <2 U/mL (0-3)
== END 2023-02-28 17:34 | disposition home or self-care (01) | DRG 244 ==
LOC: ED 16:38 → PCU 17:27
PROVIDERS: Internal Medicine Gastroenterology; Nurse Practitioner Adult Health; Student in an Organized Health Care Education/Training Program; Admitting Provider Family Medicine; Emergency Provider Emergency Medicine; PCP Internal Medicine; Visit Provider Family Medicine
DX: K57.32 Diverticulitis of large intestine without perforation or abscess without bleeding (principal); R78.81 Bacteremia; I13.2 Hypertensive heart and chronic kidney disease with heart failure and with stage 5 chronic kidney disease, or end stage renal disease; E87.20 Acidosis, unspecified; D63.8 Anemia in other chronic diseases classified elsewhere; D63.1 Anemia in chronic kidney disease; N18.6 End stage renal disease; F31.9 Bipolar disorder, unspecified; G35 Multiple sclerosis; I50.32 Chronic diastolic (congestive) heart failure; Z99.2 Dependence on renal dialysis; F10.10 Alcohol abuse, uncomplicated; K76.0 Fatty (change of) liver, not elsewhere classified; K58.9 Irritable bowel syndrome, unspecified; D53.9 Nutritional anemia, unspecified; K21.00 Gastro-esophageal reflux disease with esophagitis, without bleeding; I16.0 Hypertensive urgency; F41.9 Anxiety disorder, unspecified; D72.810 Lymphocytopenia; K27.9 Peptic ulcer, site unspecified, unspecified as acute or chronic, without hemorrhage or perforation; Z79.82 Long term (current) use of aspirin; Z87.891 Personal history of nicotine dependence; R55 Syncope and collapse; R07.9 Chest pain, unspecified; Z82.3 Family history of stroke; B96.89 Other specified bacterial agents as the cause of diseases classified elsewhere; B95.5 Unspecified streptococcus as the cause of diseases classified elsewhere
CPT/HCPCS: 36415; 71045; 71275; 74176; 76705; 80053; 80074; 80202; 80329; 82077; 82390; 82525; 82728; 82784; 83010; 83516; 83540; 83550; 83605; 83690; 83735; 84100; 84145; 84165; 84484; 85025; 85045; 86225; 86235; 86255; 86256; 86334; 86850; 86900; 86901; 86920; 86922; 87040; 87077; 87149; 87186; 90937; 93005; 93306; 93308; 99285; J7030; J7040; J7050; P9016; Q9967; A4216; G0257; G0480; J0612; J2405; Q5106

== ENCOUNTER 2023-03-10 10:47 | Inpatient (IN) | payer MEDICAID, SELFPAY ==
[2023-03-10] VITALS (19 sets, daily range): BP systolic 171–207; BP diastolic 112–156; PULSE 108–139; RESP 20–35; TEMP 36.6–37.4; O2SAT 96–99; BMI 31.6; BMI 30.4
--- NOTE | 2023-03-10 11:33 | EKG12_ITS ---
Test Reason : Blood Pressure : / mmHG Vent. Rate : 140 BPM Atrial Rate : 140 BPM P-R Int : 118 ms QRS Dur : 082 ms QT Int : 308 ms P-R-T Axes : 054 048 035 degrees QTc Int : 470 ms Critical Test Result: High HR Sinus tachycardia Otherwise normal ECG Confirmed by NANY HAYS, NEREYDA ([id number]), news copy editor INA QUINTANA ([id number]) on 03/20/2023 7:44:50 AM Referred By: Confirmed By:FRANCK AYON MD
--- NOTE | 2023-03-10 11:33 | CT_ITS ---
INDICATION: Nausea vomiting diarrhea EXAMINATION: CT ABDOMEN AND PELVIS WITHOUT CONTRAST - CT Abdomen And Pelvis W/O Contrast Injection TECHNIQUE: Helically acquired images were obtained of the abdomen and pelvis without oral or IV contrast. A radiation dose optimization technique was used for this scan. IV Contrast dosage and agent: None. Oral contrast: None. RADIATION DOSAGE (If Supplied By Facility): CTDIvol = ( 10.96 ) mGy, DLP = ( 558.62 ) mGycm COMPARISON: Prior study dated: 02/22/2023. FINDINGS: LOWER CHEST: Lung bases are clear. Borderline heart size. LIVER: Severe diffuse hepatic steatosis and hepatomegaly unchanged. No focal mass. GALLBLADDER AND BILIARY TREE: No calcified gallstones. No gallbladder distension or wall edema. No intra- or extrahepatic biliary ductal dilation. PANCREAS: No focal cystic or solid mass. SPLEEN: Normal size without focal cystic or solid mass. ADRENAL GLANDS: No nodules. KIDNEYS AND URETERS: Normal renal size and position. No hydronephrosis. PERITONEUM: No ascites or free air. No other fluid collection. BOWEL: Persistent focal thickening of the sigmoid colon. Improved adjacent inflammatory changes/diverticulitis. Diffuse thickening of the descending colon with pericolonic stranding and inflammatory changes consistent with colitis. Normal in caliber small bowel loops. Borderline thickening of the appendix without periappendiceal inflammatory changes. LYMPH NODES: No enlarged mesenteric or retroperitoneal lymph nodes. VESSELS: Aorta is non-dilated. URINARY BLADDER: Unremarkable. REPRODUCTIVE ORGANS: No pelvic masses. ABDOMINAL WALL: No discrete abdominal or pelvic wall hernia. BONES: No lytic or blastic abnormality. CT/Abdomen/Pelvis without Cont IMPRESSION: 1. Diffuse thickening of the distal transverse and descending colon with pericolonic stranding consistent with colitis. 2. Persistent focal thickening of the sigmoid colon with improved diverticulitis. Underlying lesion cannot be excluded. 3. Mid abdominal mesenteric stranding could reflect peritoneal infection or reaction to colitis. 4. Hepatomegaly and severe [hepatic steatosis. Electronically Signed: Nithin Robles MD at 12:45 EDT ,
--- NOTE | 2023-03-10 11:36 | EDS_ITS ---
HPI History of Present Illness Chief Complaint: Chest Pain Informant: patient Narrative Narrative: Patient comes in not feeling well for about 5 days. Patient states his last dialysis was a week ago on Monday. Over the weekend he was doing okay. He thinks sometimes Monday he started to get what he describes as the stomach flu. He had a lot of diarrhea that was watery. No blood. He had mild nausea but was able to eat and drink some in the early part of the week although his volume was way down. He states the last 2 or so days he has not been able to keep anything down. He vomits every time. He does have some chest discomfort in the middle of his chest is worse with vomiting. He does not think he has had a fever. His temperature was 99.4 here. He has not taken any his meds as day or so. He does still make urine and states his urine seems to be normal to him. [facility] Medical History Bipolar 1 disorder Bleach ingestion Chronic renal failure Chronic renal failure, stage 5 Diastolic heart failure ESRD (end stage renal disease) Former smoker GERD (gastroesophageal reflux disease) History of echocardiogram History of renal dialysis History of sepsis Hypertension Insomnia Irritable bowel syndrome (IBS) Multiple sclerosis Problem with dialysis access PUD (peptic ulcer disease) Steatosis of liver Tinnitus Vision problems Wears contact lenses Home Medications cholecalciferol (vitamin D3) 1,250 mcg (50,000 unit) capsule 1,250 mcg PO QWEEK supplement #12 caps 05/26/22 [Rx Last Taken 03/08/23] aspirin 81 mg tablet,delayed release 81 mg PO BREAKFAST HEART HEALTH #30 tabs 07/05/22 [Rx Last Taken 03/10/23] minoxidil 2.5 mg tablet 5 mg (2 x 2.5 mg) PO DAILY hair growth #60 tabs 07/05/22 [Rx Last Taken 03/10/23] amlodipine 10 mg tablet 10 mg PO BID BLOOD PRESSURE #180 tabs 07/21/22 [Rx Last Taken 03/10/23] doxazosin 8 mg tablet 8 mg PO QHS BLOOD PRESSURE #90 tabs 07/21/22 [Rx Last Taken 03/09/23] clonidine 0.3 mg/24 hr weekly transdermal patch 1 patch transdermal QWEEK bp #4 ea 08/02/22 [Rx Last Taken 10/31/23] lurasidone 20 mg tablet See Rx Instructions .Route .COMPLEX bipolar #30 tabs 01/18/23 [Rx Last Taken 03/09/23] ondansetron 4 mg disintegrating tablet 4 mg PO Q8H PRN PRN Nausea #30 tabs 02/14/23 [Rx Last Taken Unknown] labetalol 200 mg tablet 200 mg PO TIDCM BLOOD PRESSURE #90 tabs 02/15/23 [Rx Last Taken 03/10/23] omeprazole 40 mg capsule,delayed release 40 mg PO DAILY ACID REFLUX #30 caps 02/15/23 [Rx Last Taken 03/10/23] doxepin 10 mg capsule 10 mg PO DAILY depres 02/22/23 [History Last Taken 03/09/23] sevelamer carbonate 800 mg tablet 800 mg PO TID 03/10/23 [History Last Taken 03/10/23] Allergy/AdvReac Type Severity Reaction Status Date / Time No Known Allergies Allergy Verified 02/22/23 11:13 Family History Mother Diabetes Hypertension HLD (hyperlipidemia) Anemia Myocardial infarction Heart disease Kidney disease Father Hypertension HLD (hyperlipidemia) Bipolar disorder Diabetes Alcoholism Arthritis Depression Mental disorder Other CVA (cerebral vascular accident) Surgical History Hx of left knee surgery Hx of surgical procedure Hx of vascular surgery S/P arteriovenous (AV) fistula creation Status post insertion of hemodialysis catheter Social History household members: none current occupational status: employed and unemployed 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 [employer], 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 Smoking Status: Current every day smoker tobacco type: e-cigarettes Smokeless tobacco user: other alcohol intake: current alcohol intake frequency: a few times a week details: 4 x a week substance use type: does not use do you feel safe at home: Yes ROS ROS ED Constitutional Constitutional ED: Denies chills or fever(s) Eyes Eyes: Denies change in vision Cardiovascular Cardiovascular: Reports chest pain and racing heartbeat; Denies palpitations Respiratory/Chest Respiratory/Chest: Denies cough or dyspnea Gastrointestinal Gastrointestinal: Reports other Details: Patient states he only has abdominal pain really when he vomits. This also causes his chest pain. ; Denies diarrhea, nausea or vomiting Genitourinary Genitourinary ED: Denies dysuria Musculoskeletal Musculoskeletal: Denies myalgias Integumentary Denies rash Neurologic Neurologic: Denies headache(s) Hematologic/Lymphatic Hematologic/Lymphatic: Denies easy bleeding or easy bruising Allergic/Immunologic Allergic/Immunologic ED: Denies urticaria EXAM Physical Exam Narrative Exam Narrative: Patient is actually awake alert and appropriate. Despite his high heart rate he is in no acute distress. HEENT: Mucous membranes do look quite dry. Neck shows no stridor. No JVD noted. Heart is tachycardic in about 130s but it does appear to be normal sinus with tachycardic rate on the monitor. I am not seeing any ectopy on the monitor. Lungs do sound clear. I do not hear rales. His saturations are normal at 99% on room air showing no hypoxia. Catheter is moved from the right upper chest at the most recent admission. Does not look like it is infected at this time. Abdomen is soft. Bowel sounds are just slightly decreased. But he is not notably tender. There is certainly no rebound or guarding. No CVA tenderness. Extremities show functional fistula in the left arm. Neurologically he is awake alert appropriate. Acting his normal. Const Vital Signs: 03/10/23 10:48 03/10/23 10:52 03/10/23 10:52 Temperature 99.4 F H 99.4 F H 99.4 F H Temperature Source Temporal Temporal Temporal Pulse Rate 139 H 139 H 138 H Respiratory Rate 35 H 31 H 30 H Respiratory Effort Respiratory Depth Respiratory Pattern Blood Pressure 176/156 H 176/156 H Blood Pressure Mean 162 162 Pulse Ox 99 99 99 Oxygen Delivery Method Room Air Room Air Room Air 03/10/23 10:52 03/10/23 11:03 03/10/23 12:58 Temperature Temperature Source Pulse Rate 131 H Respiratory Rate 28 H Respiratory Effort Short of Breath Short of Breath Respiratory Depth Shallow Respiratory Pattern Tachypnea Blood Pressure 171/112 H Blood Pressure Mean 131 Pulse Ox 97 Oxygen Delivery Method Room Air Nasal Cannula 03/10/23 12:58 03/10/23 13:08 03/10/23 14:03 Temperature 99.4 F H 99.1 F Temperature Source Oral Oral Pulse Rate 131 H 132 H 125 H Respiratory Rate 20 H 29 H 27 H Respiratory Effort Respiratory Depth Respiratory Pattern Blood Pressure 178/115 H 178/115 H 186/136 H Blood Pressure Mean 136 136 152 Pulse Ox 98 98 98 Oxygen Delivery Method Room Air 03/10/23 14:06 Temperature 98.4 F Temperature Source Oral Pulse Rate 127 H Respiratory Rate 28 H Respiratory Effort Respiratory Depth Respiratory Pattern Blood Pressure 186/136 H Blood Pressure Mean 152 Pulse Ox 99 Oxygen Delivery Method Room Air MDM MDM MDM Narrative Medical decision making narrative: Patient CBC does show mild elevation white count and anemia which is baseline for him. Electrolytes show elevated creatinine consistent with his history. Potassium is actually okay at 4.3. Liver function test showed some elevation of alkaline phosphatase and minimal elevation of AST. Patient's lipase was quite high at almost 2300. Patient's troponin was up to 118. But he also has not had dialysis for a week. He has a history of having troponins not uncommonly over 100. I do not think this were presents acute coronary syndrome. We did do EKG and repeat EKG that is not showing acute issues. After my independent interpretation of the patient's chest x-ray shows no acute process and final reading is similar. My independent her potation of the CT scan of the abdomen done without contrast does bring up a question of a little bit of stranding near the head of the pancreas but this may be some stranding from the bowels also. Final reading shows: IMPRESSION: 1. Diffuse thickening of the distal transverse and descending colon with pericolonic stranding consistent with colitis. 2. Persistent focal thickening of the sigmoid colon with improved diverticulitis. Underlying lesion cannot be excluded. 3. Mid abdominal mesenteric stranding could reflect peritoneal infection or reaction to colitis. 4. Hepatomegaly and severe [hepatic steatosis. Although this patient has renal failure and is missed dialysis, his story is not taking p.o. fluids and now vomiting for a few days. His x-ray does not look fluid overloaded. He does not look fluid overloaded. He is not hypoxic and he is laying flat. I do think he will benefit from some fluids. He was given 500 and then a repeat 500. We initially gave him some labetalol which brought down his pressure but it is back up. I will give another dose. I think this patient has missed dialysis, he is not taking his meds, he has pancreatitis also. I did discuss case with hospitalist and will be admitted. Lab Data Attestation: I reviewed the patient's lab results. Labs: Laboratory Results - last 24 hr 03/10/23 03/10/23 11:02 13:05 WBC 14.3 H RBC 2.63 L Hgb 8.0 L Hct 26.0 L MCV 98.9 H MCH 30.4 MCHC 30.8 L RDW Std Deviation 67.6 H RDW Coeff of [place] 18.6 H Plt Count 193 MPV 10.2 Immature Gran % (Auto) 0.600 Neut % (Auto) 84.3 H Lymph % (Auto) 6.0 L [place] % (Auto) 7.6 Eos % (Auto) 0.7 Baso % (Auto) 0.8 Absolute Neuts (auto) 12.0 H Absolute Lymphs (auto) 0.86 Nucleated RBC % 0 Anisocytosis 1+ Sodium 144 Potassium 4.3 Chloride 111 H Carbon Dioxide 18.0 L Anion Gap 15 BUN 31 H Creatinine 7.26 H Estim Creat Clear Calc 14.39 Est GFR (MDRD) Af Amer 12 L Est GFR (MDRD) Non-Af 10 L BUN/Creatinine Ratio 4.3 L Glucose 85 Calcium 8.9 Total Bilirubin 1.70 H AST 76 H ALT 51 Alkaline Phosphatase 327 H Troponin I High Sens 118 H Total Protein 7.9 Albumin 2.9 L Globulin 5.0 H Albumin/Globulin Ratio 0.6 L Lipase 2297 H Urine Color Yellow Urine Clarity Clear Urine pH 6.0 Ur Specific [place] 1.020 Urine Protein 500 H Urine Glucose (UA) Normal Urine Ketones Negative Urine Occult Blood 25 H Urine Nitrite Negative Urine Bilirubin Negative Urine Urobilinogen Normal Ur Leukocyte Esterase Negative Urine RBC 0 SEEN Urine WBC 0 SEEN Ur Squamous Epith Cells 0 SEEN Urine Bacteria 0 SEEN Urine Mucus 0 SEEN Radiography Diagnostic Testing: Clinical Impression(s) from Imaging Studies Abdomen/Pelvis CT 03/10/23 11:33 IMPRESSION: 1. Diffuse thickening of the distal transverse and descending colon with pericolonic stranding consistent with colitis. 2. Persistent focal thickening of the sigmoid colon with improved diverticulitis. Underlying lesion cannot be excluded. 3. Mid abdominal mesenteric stranding could reflect peritoneal infection or reaction to colitis. 4. Hepatomegaly and severe [hepatic steatosis. Electronically Signed: Nithin Robles MD at 12:45 EDT , Chest X-Ray 03/10/23 12:00 IMPRESSION: No radiographic evidence of acute cardiopulmonary disease. Electronically Signed: Nithin Robles MD at 12:25 EDT , EKG Initial EKG: Comments: My independent interpretation of the patient's EKG showed sinus tachycardia at 140. Some baseline variation but no ST elevation. FL interval QRS duration are normal. QTc is toward the longer end. We did repeat that this and it has come down about [address] changes. Discharge Plan Triage Chief Complaint: Chest Pain Other Complaint: Neuro S/Sx Shortness of Breath ED Provider: Gian Gomez Dx/Rx/DC Orders Clinical Impression: Acute dehydration, Elevated troponin, Family history of chronic kidney disease, Acute pancreatitis Prescriptions: No Action cholecalciferol (vitamin D3) 1,250 mcg (50,000 unit) capsule 1,250 mcg PO QWEEK Qty: 12 0RF Patient Comments: PT STATES TAKES M,W,F amlodipine 10 mg tablet 10 mg PO BID Qty: 180 3RF doxazosin 8 mg tablet 8 mg PO QHS Qty: 90 3RF ondansetron 4 mg tablet,disintegrating 4 mg PO Q8H PRN PRN (Reason: Nausea) Qty: 30 0RF doxepin 10 mg capsule 10 mg PO DAILY sevelamer carbonate 800 mg tablet 800 mg PO TID Patient Comments: TAKE 1 TABLET BY MOUTH THREE TIMES A DAY WITH MEALS minoxidil 2.5 mg tablet 5 mg PO DAILY Qty: 60 2RF aspirin 81 mg tablet,delayed release (DR/EC) 81 mg PO BREAKFAST Qty: 30 2RF clonidine 0.3 mg/24 hr patch weekly 1 patch transdermal QWEEK Qty: 4 12RF Patient Comments: PT STAES APPLIES NEW PATCHES ON TUESDAYS lurasidone 20 mg tablet See Rx Instructions .ROUTE .COMPLEX Qty: 30 2RF Dose Instruction: TAKE 1 TABLET BY MOUTH EVERY EVENING WITH FOOD (AT LEAST 350 CALORIES) Rx Instructions: TAKE 1 TABLET BY MOUTH EVERY EVENING WITH FOOD (AT LEAST 350 CALORIES) labetalol 200 mg tablet 200 mg PO TIDCM Qty: 90 5RF omeprazole 40 mg capsule,delayed release(DR/EC) 40 mg PO DAILY Qty: 30 5RF Primary Care Provider: Linn Ware Referrals: Linn Ware MD [Primary Care Provider] - Disposition Disposition: Acute Care Hospital [facility]
[2023-03-10 11:43] LABS: Absolute Lymphocyte Count 0.86 X10^3/uL (0.83-4.51); Basophil# 0.11 X10^3/uL; Basophil% 0.8 % (0-1); Eosinophils% 0.7 % (0-5); Lymphocyte # 0.86 X10^3/ul (0.83-4.51); Mean Corp Hgb Conc 30.8 g/dL (32-36); Mean Corpuscular Hgb 30.4 pg (27.0-32.0); Mean Corpuscular Volume 98.9 fL (80-94); Mean Platelet Vol. 10.2 fl (6.2-12.0); Monocyte# 1.09 X10^3/uL; Monocyte% 7.6 % (0-10); NRBC Flagged by Analyzer 0 % (0-5); Neutrophil # 12.02 X10^3/uL (2.7-7.7); Neutrophil % 84.3 % (47-70); POSITIVE MORPHOLOGY YES; Platelet Count 193 K/mm3 (150-450); RBC Distribution Width CV 18.6 % (11.6-14.6); RBC Distribution Width SD 67.6 fl (35.1-43.9); Red Blood Count 2.63 M/mm3 (4.6-6.2); White Blood Count 14.3 K/mm3 (4.4-11.0)
[2023-03-10 11:45] LABS: Differential Indicated SCAN CRITERIA MET
[2023-03-10] MEDS: Ondansetron 4 MG/2 ML Vial IV ×2 (11:47→16:48)
[2023-03-10] MEDS: Labetalol (Prefilled) 20 MG/4 ML 10 MG IV (11:47)
[2023-03-10] MEDS: 0.9% Normal Saline (500mL Bag) 500 ML 1000 ML IV (11:48)
--- NOTE | 2023-03-10 12:00 | RAD_ITS ---
INDICATION: CP EXAMINATION/TECHNIQUE: X-RAY - XR Chest 1 View COMPARISON: Prior study dated: 02/22/2023. FINDINGS: LINES/DEVICES: Right-sided permacath has been removed. LUNGS: No consolidation, edema or effusion. No pneumothorax. MEDIASTINUM AND CARDIOVASCULAR STRUCTURES: Borderline cardiac silhouette. BONES AND SOFT TISSUES: Unremarkable. RAD/Chest 1 View (Portable) IMPRESSION: No radiographic evidence of acute cardiopulmonary disease. Electronically Signed: Nithin Robles MD at 12:25 EDT ,
[2023-03-10 12:02] LABS: ALB/GLOB Ratio 0.6 RATIO (0.9-2.4); AST(SGOT) 76 U/L (15-37); Alanine Aminotransfer ALT/SGPT 51 U/L (16-61); Albumin, Serum 2.9 g/dL (3.2-5.0); Alkaline Phosphatase 327 U/L (45-117); Anion Gap 15 (5-15); BUN 31 mg/dL (7-18); BUN/Creat Ratio 4.3 RATIO (10-20); Calcium,Total 8.9 mg/dL (8.5-10.1); Chloride 111 mmol/L (98-107); Creatinine, Serum 7.26 mg/dL (0.70-1.30); EST Glomerular Filtration Rate 10 mL/min (>60); Est Glom Filt Rate - Afr Amer 12 mL/min (>60); Estimated Creatinine Clearance 14.39 ml/min; Glucose 85 mg/dL (74-106); Lipase 2297 U/L (13-75); Potassium 4.3 mmol/L (3.5-5.1); Protein, Total 7.9 g/dL (6.4-8.2); Sodium Level 144 mmol/L (136-145)
--- NOTE | 2023-03-10 13:02 | EKG12_ITS ---
Test Reason : Blood Pressure : / mmHG Vent. Rate : 125 BPM Atrial Rate : 125 BPM P-R Int : 124 ms QRS Dur : 082 ms QT Int : 338 ms P-R-T Axes : 063 043 034 degrees QTc Int : 487 ms Sinus tachycardia Nonspecific ST abnormality Abnormal ECG Confirmed by NANY HAYS, NEREYDA ([id number]), associate entertainment editor INA QUINTANA ([id number]) on 03/20/2023 7:45:03 AM Referred By: Confirmed By:FRANCK AYON MD
[2023-03-10 13:09] LABS: Anisocytosis 1+
[2023-03-10 13:12] LABS: Bacteria 0 SEEN /hpf (None Seen); Mucous, Urine 0 SEEN /hpf (<or=2+); Red Blood Cells-Urine 0 SEEN /hpf (0-5); Squamous Epithelial Cells - UA 0 SEEN /hpf (0-5); White Blood Cells 0 SEEN /hpf (0-5)
[2023-03-10 13:18] LABS: Color, Urine Yellow (Yellow); Glucose, Dipstick Normal (Normal); Ketone-Dipstick Negative (Negative); Leukocyte Esterase-Dipstick Negative /ul (Negative); Nitrite-Dipstick Negative (Negative); Occult Blood-Urine 25 /ul (Negative); Protein-Dipstick 500 mg/dl (Negative); Urine Bilirubin Dipstick Negative (Negative); Urine Clarity Clear (Clear); Urine Urobilinogen Normal (Normal)
[2023-03-10 13:21] LABS: Troponin-I HS 118 pg/mL (3.0-78.0)
[2023-03-10] MEDS: 0.9% Normal Saline (500mL Bag) 500 ML 999 ML IV (14:03)
[2023-03-10] MEDS: Labetalol (Prefilled) 20 MG/4 ML IV ×2 (14:28→20:18)
--- NOTE | 2023-03-10 14:34 | PCM.HP.STD ---
HPI - General General Date of Admission: 03/10/23 Date of Service: 03/10/23 Chief Complaint: Abdominal pain, nausea and vomiting, diarrhea, chest pain HPI Narrative EDU WILCOX, is a 28 M who presents to the emergency room at [facility] with complaints of persistent nausea x5 days with vomiting for 2 days-he has been unable to keep his blood pressure medications down. Patient also complains of diarrhea this week. Patient also complained of some mid chest pain after vomiting which is sharp in nature, he is a chronic dialysis patient and his last dialysis was Monday. Other medical problems include severe hypertension. Work-up in the emergency room included a CT of the abdomen and pelvis, no evidence of ductal dilatation was noted in the common bile duct and no evidence of stones were noted. There was diffuse thickening of the distal transverse and descending colon with pericolic stranding consistent with colitis, there was persistent focal thickening of the sigmoid colon with evidence of improved diverticulitis, mid abdominal mesenteric stranding was noted. Hepatomegaly was noted. Lab was performed, white blood cell count was elevated at 14.3, hemoglobin was 8, chemistry panel revealed a creatinine of 7.26, BUN was 31, and bilirubin was 1.7. Alkaline phosphatase was elevated at 327, troponin was elevated at 118. Patient's EKG showed a sinus tachycardia without evidence of ischemic changes. Lipase was 2297. COVID antigen test was negative. Patient will be admitted to [place] [address] for pancreatitis, he will be given IV fluids and IV pain medications, I will place him on IV medications for his blood pressure and he will be seen by dialysis. I do not feel the patient needs repeat troponin, his chest pain is atypical and is associated worse with vomiting. [facility] Medical History Bipolar 1 disorder Bleach ingestion Chronic renal failure Chronic renal failure, stage 5 Diastolic heart failure ESRD (end stage renal disease) Former smoker GERD (gastroesophageal reflux disease) History of echocardiogram History of renal dialysis History of sepsis Hypertension Insomnia Irritable bowel syndrome (IBS) Multiple sclerosis Problem with dialysis access PUD (peptic ulcer disease) Steatosis of liver Tinnitus Vision problems Wears contact lenses Home Medications cholecalciferol (vitamin D3) 1,250 mcg (50,000 unit) capsule 1,250 mcg PO QWEEK supplement #12 caps 05/26/22 [Rx Last Taken 03/08/23] aspirin 81 mg tablet,delayed release 81 mg PO BREAKFAST HEART HEALTH #30 tabs 07/05/22 [Rx Last Taken 03/10/23] minoxidil 2.5 mg tablet 5 mg (2 x 2.5 mg) PO DAILY hair growth #60 tabs 07/05/22 [Rx Last Taken 03/10/23] amlodipine 10 mg tablet 10 mg PO BID BLOOD PRESSURE #180 tabs 07/21/22 [Rx Last Taken 03/10/23] doxazosin 8 mg tablet 8 mg PO QHS BLOOD PRESSURE #90 tabs 07/21/22 [Rx Last Taken 03/09/23] clonidine 0.3 mg/24 hr weekly transdermal patch 1 patch transdermal QWEEK bp #4 ea 08/02/22 [Rx Last Taken 03/07/23] lurasidone 20 mg tablet See Rx Instructions .Route .COMPLEX bipolar #30 tabs 01/18/23 [Rx Last Taken 03/09/23] ondansetron 4 mg disintegrating tablet 4 mg PO Q8H PRN PRN Nausea #30 tabs 02/14/23 [Rx Last Taken Unknown] labetalol 200 mg tablet 200 mg PO TIDCM BLOOD PRESSURE #90 tabs 02/15/23 [Rx Last Taken 03/10/23] omeprazole 40 mg capsule,delayed release 40 mg PO DAILY ACID REFLUX #30 caps 02/15/23 [Rx Last Taken 03/10/23] doxepin 10 mg capsule 10 mg PO DAILY depres 02/22/23 [History Last Taken 03/09/23] sevelamer carbonate 800 mg tablet 800 mg PO TID 03/10/23 [History Last Taken 03/10/23] Allergy/AdvReac Type Severity Reaction Status Date / Time No Known Allergies Allergy Verified 02/22/23 11:13 Family History Mother Diabetes Hypertension HLD (hyperlipidemia) Anemia Myocardial infarction Heart disease Kidney disease Father Hypertension HLD (hyperlipidemia) Bipolar disorder Diabetes Alcoholism Arthritis Depression Mental disorder Other CVA (cerebral vascular accident) Surgical History Hx of left knee surgery Hx of surgical procedure Hx of vascular surgery S/P arteriovenous (AV) fistula creation Status post insertion of hemodialysis catheter Social History household members: none current occupational status: employed and unemployed 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 [employer], 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 Smoking Status: Current every day smoker tobacco type: e-cigarettes Smokeless tobacco user: other alcohol intake: current alcohol intake frequency: a few times a week details: 4 x a week substance use type: does not use do you feel safe at home: Yes ROS Constitutional Constitutional: Reports fatigue and malaise; Denies anorexia, change in weight, fever(s), night sweats or weakness Eyes Eyes: Denies blurry vision, change in vision, discharge from eye(s) or eye pain Cardiovascular Cardiovascular: Denies chest pain, claudication, dyspnea on exertion, edema, lightheadedness or palpitations Respiratory/Chest Respiratory/Chest: Denies cough, hemoptysis, shortness of breath at rest or shortness of breath with exertion Gastrointestinal Gastrointestinal: Reports abdominal pain, diarrhea, nausea and vomiting; Denies constipation, hematemesis, hematochezia or melena Genitourinary Genitourinary: Denies dysuria, hematuria, urinary frequency, urinary hesitancy, urinary incontinence or urinary urgency Musculoskeletal Musculoskeletal: Denies back pain, joint pain, joint stiffness, joint swelling, myalgias or neck pain Neurologic Neurologic: Denies abnormal gait, abnormal speech, confusion, disequilibrium, dizziness, focal weakness, headache(s), loss of vision, numbness, other visual disturbances, paresthesias, syncope or tingling Psychiatric Psychiatric: Denies anxiety, cognitive impairment, depression, irritability, mood swings or suicidal ideation Endocrine Endocrinology: Denies change in body appearance, cold intolerance, excessive sweating, heat intolerance, polydipsia or polyuria Hematologic/Lymphatic Hematologic/Lymphatic: Denies none, anemia, easy bleeding, easy bruising or lymphadenopathy Allergic/Immunologic Allergic/Immunologic: Denies rhinitis, urticaria, eczemia or asthma Vital Signs Vital Signs Vital Signs: 03/10/23 10:48 03/10/23 10:52 03/10/23 10:52 Temperature 99.4 F H 99.4 F H 99.4 F H Temperature Source Temporal Temporal Temporal Pulse Rate 139 H 139 H 138 H Respiratory Rate 35 H 31 H 30 H Respiratory Effort Respiratory Depth Respiratory Pattern Blood Pressure 176/156 H 176/156 H Blood Pressure Mean 162 162 Pulse Ox 99 99 99 Oxygen Delivery Method Room Air Room Air Room Air 03/10/23 10:52 03/10/23 11:03 03/10/23 12:58 Temperature Temperature Source Pulse Rate 131 H Respiratory Rate 28 H Respiratory Effort Short of Breath Short of Breath Respiratory Depth Shallow Respiratory Pattern Tachypnea Blood Pressure 171/112 H Blood Pressure Mean 131 Pulse Ox 97 Oxygen Delivery Method Room Air Nasal Cannula 03/10/23 12:58 03/10/23 13:08 03/10/23 14:03 Temperature 99.4 F H 99.1 F Temperature Source Oral Oral Pulse Rate 131 H 132 H 125 H Respiratory Rate 20 H 29 H 27 H Respiratory Effort Respiratory Depth Respiratory Pattern Blood Pressure 178/115 H 178/115 H 186/136 H Blood Pressure Mean 136 136 152 Pulse Ox 98 98 98 Oxygen Delivery Method Room Air 03/10/23 14:06 03/10/23 14:12 Temperature 98.4 F 98.4 F Temperature Source Oral Pulse Rate 127 H 127 H Respiratory Rate 28 H 21 H Respiratory Effort Respiratory Depth Respiratory Pattern Blood Pressure 186/136 H 186/136 H Blood Pressure Mean 152 152 Pulse Ox 99 97 Oxygen Delivery Method Room Air Weight Weight: 94.5 kg Body Mass Index (BMI) 31.6 Physical Exam Const alert, oriented x3 and no apparent distress Constitutional Narrative: Patient appears uncomfortable from generalized abdominal pain General Appearance: cooperative, well kempt and well developed Orientation / Consciousness: awake, oriented to person, oriented to place and oriented to time HEENT normocephalic HEENT Narrative: Mucous membranes are dry Eyes PERRL, EOMs intact bilaterally and conjunctivae normal Neck supple, no JVD, thyroid normal and no carotid bruits General: trachea midline Resp normal respiratory effort, no retractions, no use of accessory muscles and clear to auscultation bilaterally Auscultation: Negative for rales, rhonchi or wheezes Cardio regular rate, regular rhythm, S1 normal heart sound, S2 normal heart sound, no murmurs, no rub and no gallops Cardio Narrative: Heart rate and rhythm is tachycardic GI GI Narrative: Abdomen is nondistended, diffuse abdominal pain is noted to palpation, no rebound abdominal tenderness was noted, bowel sounds are present in all 4 quadrant Extremity no clubbing, cyanosis or edema Skin no rashes or lesions noted General Skin Exam: no breakdown Neuro oriented x3, CN's II-XII intact bilaterally, moves all extremities, no focal motor deficits and no sensory deficits noted Sensorium / Orientation: awake, alert, oriented to person, oriented to place and oriented to time Speech: speech normal Psych affect normal Results Lab / Micro Data 03/10/23 11:02 03/10/23 11:02 Labs: Laboratory Results - last 24 hr 03/10/23 11:02: WBC 14.3 H, RBC 2.63 L, Hgb 8.0 L, Hct 26.0 L, MCV 98.9 H, MCH 30.4, MCHC 30.8 L, RDW Std Deviation 67.6 H, RDW Coeff of [place] 18.6 H, Plt Count 193, MPV 10.2, Immature Gran % (Auto) 0.600, Neut % (Auto) 84.3 H, Lymph % (Auto) 6.0 L, [place] % (Auto) 7.6, Eos % (Auto) 0.7, Baso % (Auto) 0.8, Absolute Neuts (auto) 12.0 H, Absolute Lymphs (auto) 0.86, Nucleated RBC % 0, Anisocytosis 1+, Sodium 144, Potassium 4.3, Chloride 111 H, Carbon Dioxide 18.0 L, Anion Gap 15, BUN 31 H, Creatinine 7.26 H, Estim Creat Clear Calc 14.39, Est GFR (MDRD) Af Amer 12 L, Est GFR (MDRD) Non-Af 10 L, BUN/Creatinine Ratio 4.3 L, Glucose 85, Calcium 8.9, Total Bilirubin 1.70 H, AST 76 H, ALT 51, Alkaline Phosphatase 327 H, Troponin I High Sens 118 H, Total Protein 7.9, Albumin 2.9 L, Globulin 5.0 H, Albumin/Globulin Ratio 0.6 L, Lipase 2297 H 03/10/23 13:05: Urine Color Yellow, Urine Clarity Clear, Urine pH 6.0, Ur Specific [place] 1.020, Urine Protein 500 H, Urine Glucose (UA) Normal, Urine Ketones Negative, Urine Occult Blood 25 H, Urine Nitrite Negative, Urine Bilirubin Negative, Urine Urobilinogen Normal, Ur Leukocyte Esterase Negative, Urine RBC 0 SEEN, Urine WBC 0 SEEN, Ur Squamous Epith Cells 0 SEEN, Urine Bacteria 0 SEEN, Urine Mucus 0 SEEN Micro: Microbiology 03/10/23 11:54 Nasal Secretion SARS-CoV-2 & FLU Antigen (Rapid) - Final Radiology Impression Abdomen/Pelvis CT 03/10/23 11:33 IMPRESSION: 1. Diffuse thickening of the distal transverse and descending colon with pericolonic stranding consistent with colitis. 2. Persistent focal thickening of the sigmoid colon with improved diverticulitis. Underlying lesion cannot be excluded. 3. Mid abdominal mesenteric stranding could reflect peritoneal infection or reaction to colitis. 4. Hepatomegaly and severe [hepatic steatosis. Electronically Signed: Nithin Robles MD at 12:45 EDT , Chest X-Ray 03/10/23 12:00 IMPRESSION: No radiographic evidence of acute cardiopulmonary disease. Electronically Signed: Nithin Robles MD at 12:25 EDT , Assessment & Plan Assessment/Plan (1) Acute pancreatitis: PLAN: Plan 1. Acute pancreatitis-probably secondary to dehydration from gastroenteritis-patient will be admitted to [facility] 3, he will be given IV fluids and IV pain medication, labs will be repeated tomorrow #2 acute gastroenteritis-again patient will be given IV fluids, IV antiemetics, blood pressure medications will need to be given IV #3 severe hypertension-patient will be placed on IV Vasotec and IV Trandate, blood pressure will be monitored, patient is also on a clonidine patch #4 end-stage renal disease requiring dialysis-nephrology will see the patient, his dialysis days Monday and Monday #5 bipolar disorder-patient's meds will be held at this time until he is not vomiting #6 GERD-patient will be placed on IV Protonix I do not feel patient has diverticulitis or colitis. Total clinical time spent by myself addressing the patient's medical issues, reviewing all of his data, and collaborating with patient's care team: 55 minutes Charges/Coding Visit Charges Inpatient E&M: 14510 Init Hosp L2
[2023-03-10] MEDS: Morphine 4 MG/ML Syringe IV (14:42)
[2023-03-10] MEDS: hydrALAZINE 20 MG/ML Vial IV ×2 (15:32→22:16)
[2023-03-10] MEDS: 0.9% Normal Saline (1000mL) 1,000 ML 175 ML IV (16:20)
[2023-03-10] MEDS: HYDROmorphone 1 MG/ML Syringe IV ×2 (16:23→21:14)
[2023-03-10] MEDS: Pantoprazole Sodium 40 MG in 0.9% Normal Saline (100mL MB+) 100 ML 330 MG IV (16:46)
[2023-03-10] MEDS: Enalaprilat 1.25 MG/ML Vial 2.5 MG IV ×2 (16:49→23:50)
[2023-03-10] MEDS: SEVELAMER CARBONATE 800 MG TABLET PO (18:07)
[2023-03-10] MEDS: Labetalol 200 MG Tablet PO (18:07)
--- NOTE | 2023-03-10 20:13 | NURSING ---
Pt reports drinking 8-12 oz of hard liquor three to four times a week.
--- NOTE | 2023-03-10 20:13 | PCM.HOSP.N ---
Hospitalist Note RN noted that patient drinks 8-12 ounces at least potentially daily, at least 4x/week. Will add CIWA, will add MVI/thiamine/Folic acid, will check mag and phos.
[2023-03-10] MEDS: 0.9% Saline Lock 10 ML Syringe IV ×4 (20:17→23:50)
[2023-03-10 20:36] LABS: Magnesium 1.5 mg/dL (1.6-2.6); Phosphorus 4.4 mg/dL (2.5-4.9)
[2023-03-10] MEDS: amLODIPine 10 MG Tablet PO (21:08)
[2023-03-10] MEDS: Doxazosin 4 MG Tablet 8 MG PO (21:08)
[2023-03-10] MEDS: 0.9% Normal Saline (1000mL) 1,000 ML 125 ML IV (22:15)
[2023-03-11] VITALS (24 sets, daily range): BP systolic 71–239; BP diastolic 87–123; PULSE 108–120; RESP 16–22; TEMP 36.6–37.4; O2SAT 94–98; BMI 30.3
[2023-03-11] MEDS: Magnesium Sulfate 2 GM in Dextrose 5%-Water (100mL Bag) 100 ML IV (00:27)
[2023-03-11] MEDS: 0.9% Saline Lock 10 ML Syringe IV ×8 (04:33→22:21)
[2023-03-11] MEDS: Labetalol (Prefilled) 20 MG/4 ML IV (04:33)
[2023-03-11] MEDS: Enalaprilat 1.25 MG/ML Vial 2.5 MG IV ×3 (05:19→17:48)
[2023-03-11] MEDS: HYDROmorphone 1 MG/ML Syringe IV ×3 (05:40→22:18)
[2023-03-11 06:44] LABS: Absolute Lymphocyte Count 0.72 X10^3/uL (0.83-4.51); Absolute Neutrophil Count 7.6 X10^3/uL (2.0-7.7); Basophil# 0.09 X10^3/uL; Basophil% 0.9 % (0-1); Eosinophil# 0.34 X10^3/uL; Eosinophils% 3.5 % (0-5); Hematocrit 23.2 % (40-54); Hemoglobin 7.3 g/dL (13.0-16.5); Lymphocyte # 0.72 X10^3/ul (0.83-4.51); Lymphocyte % 7.4 % (19-41); Mean Corp Hgb Conc 31.5 g/dL (32-36); Mean Corpuscular Hgb 31.6 pg (27.0-32.0); Mean Corpuscular Volume 100.4 fL (80-94); Mean Platelet Vol. 9.7 fl (6.2-12.0); Monocyte# 0.85 X10^3/uL; Monocyte% 8.8 % (0-10); NRBC Flagged by Analyzer 0 % (0-5); Neutrophil # 7.62 X10^3/uL (2.7-7.7); Neutrophil % 78.8 % (47-70); POSITIVE MORPHOLOGY YES; Platelet Count 115 K/mm3 (150-450); RBC Distribution Width CV 18.8 % (11.6-14.6); RBC Distribution Width SD 68.3 fl (35.1-43.9); Red Blood Count 2.31 M/mm3 (4.6-6.2); White Blood Count 9.7 K/mm3 (4.4-11.0)
[2023-03-11] MEDS: hydrALAZINE 20 MG/ML Vial IV (06:49)
[2023-03-11 07:05] LABS: Differential Indicated SCAN CRITERIA MET
[2023-03-11 07:11] LABS: ALB/GLOB Ratio 0.5 RATIO (0.9-2.4); AST(SGOT) 58 U/L (15-37); Alanine Aminotransfer ALT/SGPT 41 U/L (16-61); Albumin, Serum 2.5 g/dL (3.2-5.0); Alkaline Phosphatase 298 U/L (45-117); Anion Gap 8 (5-15); BUN 32 mg/dL (7-18); BUN/Creat Ratio 4.7 RATIO (10-20); Calcium,Total 8.3 mg/dL (8.5-10.1); Chloride 113 mmol/L (98-107); EST Glomerular Filtration Rate 10 mL/min (>60); Est Glom Filt Rate - Afr Amer 12 mL/min (>60); Estimated Creatinine Clearance 15.37 ml/min; Globulin 4.7 g/dL (2.2-4.2); Glucose 98 mg/dL (74-106); Magnesium 2.1 mg/dL (1.6-2.6); Protein, Total 7.2 g/dL (6.4-8.2); Sodium Level 143 mmol/L (136-145)
[2023-03-11 07:15] LABS: Anisocytosis 2+
[2023-03-11] MEDS: Ondansetron 4 MG/2 ML Vial IV (07:35)
[2023-03-11] MEDS: PureFlow B 2K Dialysis Soln 1 BAG 6 BAG PF (07:35)
[2023-03-11] MEDS: 0.9% Normal Saline 1,000 ML IV.SOLN. 1000 ML OPERA.SITE (07:36)
--- NOTE | 2023-03-11 08:17 | PN.HOSP_ITS ---
Reason for Visit Reason for Visit: Diagnoses Acute pancreatitis without necrosis or infection, unspecified (03/10/23) Subjective Subjective Still with abdominal pain. More so just below his umbilicus and slightly over to his left side. Patient does endorse that about 4 times per week he will drink 8 to 12 ounces of liquor. Objective Data Objective Data Vital Signs: Vital Signs Temp Pulse Resp BP Pulse Ox O2 Del Method 36.8 C 118 H 18 195/110 H 96 Room Air 03/11/23 06:44 03/11/23 08:00 03/11/23 08:00 03/11/23 08:00 03/11/23 08:00 03/11/23 08:00 Oxygen Delivery Method Room Air Weight: 90.718 kg Body Mass Index (BMI) 30.3 Intake & Output: Intake and Output for Last 24 Hours 03/09/23 03/10/23 03/11/23 23:59 23:59 23:59 Intake Total 3076.25 / 3076.25 781.08 / 781.08 Output Total 750 / 750 350 / 350 Balance 2326.25 / 2326.25 431.08 / 431.08 Lab / Micro Data 03/11/23 06:37 03/11/23 06:37 Labs: Laboratory Results - last 24 hr 03/10/23 11:02: WBC 14.3 H, RBC 2.63 L, Hgb 8.0 L, Hct 26.0 L, MCV 98.9 H, MCH 30.4, MCHC 30.8 L, RDW Std Deviation 67.6 H, RDW Coeff of [place] 18.6 H, Plt Count 193, MPV 10.2, Immature Gran % (Auto) 0.600, Neut % (Auto) 84.3 H, Lymph % (Auto) 6.0 L, [place] % (Auto) 7.6, Eos % (Auto) 0.7, Baso % (Auto) 0.8, Absolute Neuts (auto) 12.0 H, Absolute Lymphs (auto) 0.86, Nucleated RBC % 0, Anisocytosis 1+, Sodium 144, Potassium 4.3, Chloride 111 H, Carbon Dioxide 18.0 L, Anion Gap 15, BUN 31 H, Creatinine 7.26 H, Estim Creat Clear Calc 14.39, Est GFR (MDRD) Af Amer 12 L, Est GFR (MDRD) Non-Af 10 L, BUN/Creatinine Ratio 4.3 L, Glucose 85, Calcium 8.9, Phosphorus 4.4, Magnesium 1.5 L, Total Bilirubin 1.70 H , AST 76 H, ALT 51, Alkaline Phosphatase 327 H, Troponin I High Sens 118 H, Total Protein 7.9, Albumin 2.9 L, Globulin 5.0 H, Albumin/Globulin Ratio 0.6 L, Lipase 2297 H 03/10/23 13:05: Urine Color Yellow, Urine Clarity Clear, Urine pH 6.0, Ur Specific [place] 1.020, Urine Protein 500 H, Urine Glucose (UA) Normal, Urine Ketones Negative, Urine Occult Blood 25 H, Urine Nitrite Negative, Urine Bilirubin Negative, Urine Urobilinogen Normal, Ur Leukocyte Esterase Negative, Urine RBC 0 SEEN, Urine WBC 0 SEEN, Ur Squamous Epith Cells 0 SEEN, Urine Bacteria 0 SEEN, Urine Mucus 0 SEEN 03/11/23 06:37: WBC 9.7, RBC 2.31 L, Hgb 7.3 L, Hct 23.2 L, MCV 100.4 H, MCH 31.6, MCHC 31.5 L, RDW Std Deviation 68.3 H, RDW Coeff of [place] 18.8 H, Plt Count 115 L, MPV 9.7, Immature Gran % (Auto) 0.600, Neut % (Auto) 78.8 H, Lymph % (Auto) 7.4 L, [place] % (Auto) 8.8, Eos % (Auto) 3.5, Baso % (Auto) 0.9, Absolute Neuts (auto) 7.6, Absolute Lymphs (auto) 0.72 L, Nucleated RBC % 0, Anisocytosis 2+, Sodium 143, Potassium 4.0, Chloride 113 H, Carbon Dioxide 22.0, Anion Gap 8, BUN 32 H, Creatinine 6.80 H, Estim Creat Clear Calc 15.37, Est GFR (MDRD) Af Amer 12 L, Est GFR (MDRD) Non-Af 10 L, BUN/Creatinine Ratio 4.7 L, Glucose 98, Calcium 8.3 L, Magnesium 2.1, Total Bilirubin 1.40 H, AST 58 H, ALT 41, Alkaline Phosphatase 298 H, Total Protein 7.2, Albumin 2.5 L, Globulin 4.7 H, Albumin/Globulin Ratio 0.5 L Micro: Microbiology 03/10/23 11:54 Nasal Secretion SARS-CoV-2 & FLU Antigen (Rapid) - Final Radiography Diagnostic Testing: Radiology Impression Abdomen/Pelvis CT 03/10/23 11:33 IMPRESSION: 1. Diffuse thickening of the distal transverse and descending colon with pericolonic stranding consistent with colitis. 2. Persistent focal thickening of the sigmoid colon with improved diverticulitis. Underlying lesion cannot be excluded. 3. Mid abdominal mesenteric stranding could reflect peritoneal infection or reaction to colitis. 4. Hepatomegaly and severe [hepatic steatosis. Electronically Signed: Nithin Robles MD at 12:45 EDT , Chest X-Ray 03/10/23 12:00 IMPRESSION: No radiographic evidence of acute cardiopulmonary disease. Electronically Signed: Nithin Robles MD at 12:25 EDT , Physical Exam Const alert and no apparent distress Constitutional Narrative: Just completed dialysis. HEENT head/scalp atraumatic and moist oral mucous membranes Resp normal respiratory effort, no retractions, no use of accessory muscles and clear to auscultation bilaterally Cardio regular rate, regular rhythm, S1 normal heart sound and S2 normal heart sound GI normal to inspection, nondistended, normoactive bowel sounds and soft to palpation GI Narrative: Tender around just below the epigastrium slightly on the left. Slightly distended. No epigastric tenderness Extremity normal to inspection and full ROM Assessment & Plan Assessment/Plan (1) Acute pancreatitis: PLAN: Likely 2/2 alcohol Pt reportedly drinks 4x/week with 8 to 12 ounces each time. He states that he has cut back his alcohol consumption from before. Pain control. (2) Colitis: PLAN: Diffuse thickening of the distal transverse and descending colon with pericolonic stranding. Persistent focal thickening fo the sigmoid colon with improved diverticulitis. Hepatomegaly with severe hepatic steatosis. Check stool studies. Unlikely C. difficile as patient is not having diarrhea but will check studies if possible. We will place the patient on empiric antibiotics. Etiology of this could be infectious, ischemic or inflammatory. (3) Essential hypertension: PLAN: Accelerated On amlodipine, PRN hydralazine, minoxidil 5, clonidine patch, enalaprilat Patient is slightly tachycardic. Will add carvedilol. PLAN: Plan Chronic conditions: * 4 end-stage renal disease requiring dialysis-nephrology will see the patient, his dialysis days Monday and Monday. AV fistula functional. HD catheter recently removed * bipolar disorder-patient's meds will be held at this time until he is not vomiting * GERD-patient will be placed on IV Protonix VTE prophylaxis: SQ heparin Charges/Coding Visit Charges Inpatient E&M: 69740 Subs Hosp L2
[2023-03-11] MEDS: Pantoprazole Sodium 40 MG in 0.9% Normal Saline (100mL MB+) 100 ML 330 MG IV (11:06)
[2023-03-11] MEDS: Multivitamins,Ther W-Minerals Tablet 1 TABLET PO (11:12)
[2023-03-11] MEDS: SEVELAMER CARBONATE 800 MG TABLET PO ×2 (11:13→17:48)
[2023-03-11] MEDS: Labetalol 200 MG Tablet PO (11:13)
[2023-03-11] MEDS: Thiamine Hydrochloride 100 MG Tablet PO (11:14)
[2023-03-11] MEDS: amLODIPine 10 MG Tablet PO ×2 (11:14→22:27)
[2023-03-11] MEDS: Doxepin Hydrochloride 10 MG Capsule PO (11:14)
[2023-03-11] MEDS: Folic Acid 1 MG Tablet PO (11:14)
[2023-03-11] MEDS: Minoxidil 2.5 MG Tablet 5 MG PO (11:17)
[2023-03-11] MEDS: LURASIDONE HCL 20 MG TABLET PO (11:21)
--- NOTE | 2023-03-11 13:10 | CON.PCM.RE_ITS ---
Assessment & Plan Assessment/Plan (1) ESRD (end stage renal disease): PLAN: On hemodialysis Monday, Monday, Monday schedule. Received dialysis this morning with AV fistula. Asymptomatic now. Abdominal pain is improving. Hemoglobin has been fairly low. We will call dialysis unit for recent erythropoietin administration records. HPI Consult Data Date of Consult: 03/11/23 HPI Narrative Reason for Consultation: ESRD HPI Narrative: EDU WILCOX, is a 28 M who presents to the hospital with abdominal pain. Nephrology on consultation due to ESRD. Currently on hemodialysis Monday, Monday, Monday schedule. Did not go to dialysis most of this week due to being sick. He was recently admitted here with diverticulitis, suspected bacteremia. He had a dialysis catheter which was removed last admission. Came back with abdominal discomfort. Was found to have a lipase of 2200. Admission diagnosis pancreatitis. He had a CT abdomen which did not show any significant pancreatic inflammation. Diverticulitis seems to be better on the CAT scan, he also has diffuse colitis. He says he is somewhat better since coming in. Received dialysis early this morning. [facility] Medical History (Updated 03/11/23 @ 13:[address] Alysha Rico MD) Bipolar 1 disorder Bleach ingestion Chronic renal failure Chronic renal failure, stage 5 Diastolic heart failure ESRD (end stage renal disease) Former smoker GERD (gastroesophageal reflux disease) History of echocardiogram History of renal dialysis History of sepsis Hypertension Insomnia Irritable bowel syndrome (IBS) Multiple sclerosis Problem with dialysis access PUD (peptic ulcer disease) Steatosis of liver Tinnitus Vision problems Wears contact lenses Home Medications cholecalciferol (vitamin D3) 1,250 mcg (50,000 unit) capsule 1,250 mcg PO QWEEK supplement #12 caps 05/26/22 [Rx Last Taken 03/08/23] aspirin 81 mg tablet,delayed release 81 mg PO BREAKFAST HEART HEALTH #30 tabs 07/05/22 [Rx Last Taken 03/10/23] minoxidil 2.5 mg tablet 5 mg (2 x 2.5 mg) PO DAILY hair growth #60 tabs 07/05/22 [Rx Last Taken 03/10/23] amlodipine 10 mg tablet 10 mg PO BID BLOOD PRESSURE #180 tabs 07/21/22 [Rx Last Taken 03/10/23] doxazosin 8 mg tablet 8 mg PO QHS BLOOD PRESSURE #90 tabs 07/21/22 [Rx Last Taken 03/09/23] clonidine 0.3 mg/24 hr weekly transdermal patch 1 patch transdermal QWEEK bp #4 ea 08/02/22 [Rx Last Taken 03/07/23] lurasidone 20 mg tablet See Rx Instructions .Route .COMPLEX bipolar #30 tabs 01/18/23 [Rx Last Taken 03/09/23] ondansetron 4 mg disintegrating tablet 4 mg PO Q8H PRN PRN Nausea #30 tabs 02/14/23 [Rx Last Taken Unknown] labetalol 200 mg tablet 200 mg PO TIDCM BLOOD PRESSURE #90 tabs 02/15/23 [Rx Last Taken 03/10/23] omeprazole 40 mg capsule,delayed release 40 mg PO DAILY ACID REFLUX #30 caps 02/15/23 [Rx Last Taken 03/10/23] doxepin 10 mg capsule 10 mg PO DAILY depres 02/22/23 [History Last Taken 03/09/23] sevelamer carbonate 800 mg tablet 800 mg PO TID 03/10/23 [History Last Taken 03/10/23] Allergy/AdvReac Type Severity Reaction Status Date / Time No Known Allergies Allergy Verified 02/22/23 11:13 Family History Mother Diabetes Hypertension HLD (hyperlipidemia) Anemia Myocardial infarction Heart disease Kidney disease Father Hypertension HLD (hyperlipidemia) Bipolar disorder Diabetes Alcoholism Arthritis Depression Mental disorder Other CVA (cerebral vascular accident) Surgical History Hx of left knee surgery Hx of surgical procedure Hx of vascular surgery S/P arteriovenous (AV) fistula creation Status post insertion of hemodialysis catheter Social History household members: none current occupational status: employed and unemployed 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 [employer], 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 Smoking Status: Current every day smoker tobacco type: e-cigarettes Smokeless tobacco user: other alcohol intake: current alcohol intake frequency: a few times a week details: 4 x a week substance use type: does not use do you feel safe at home: Yes ROS ROS Narrative Negative except above Physical Exam Narrative Alert awake oriented x 3 no obvious distress no pallor no icterus no JVD s1s2 no murmurs lungs clear abdomen soft no organomegaly no edema no cyanosis Medical Records Data Medical Nutrition Assessment Dietitian: Malnutrition Criteria Met Start: 03/11/23 10:40 Freq: Status: Active Protocol: Document 03/11/23 10:40 SLA (Rec: 03/11/23 10:40 SLA Desktop) Nutrition Malnutrition Evidence of Malnutrition Exists Yes Malnutrition (severe): Acute Illness/Injury Evidenced By Suboptimal Energy Intake ( Severe),Weight Loss (Severe) Clinical Problem Acute Disease or Injury Related Malnutrition Etiology related to nausea, vomiting, diarrhea and inadequate energy intake Signs/Symptoms as evidenced by 4.4% unintended wt loss and 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 Lab / Micro Data 03/11/23 06:37 03/11/23 06:37 Labs: Laboratory Results - last 24 hr 03/10/23 11:02: Anisocytosis 1+, Phosphorus 4.4, Magnesium 1.5 L, Troponin I High Sens 118 H 03/10/23 13:05: Urine Color Yellow, Urine Clarity Clear, Urine pH 6.0, Ur Specific [place] 1.020, Urine Protein 500 H, Urine Glucose (UA) Normal, Urine Ketones Negative, Urine Occult Blood 25 H, Urine Nitrite Negative, Urine Bilirubin Negative, Urine Urobilinogen Normal, Ur Leukocyte Esterase Negative, Urine RBC 0 SEEN, Urine WBC 0 SEEN, Ur Squamous Epith Cells 0 SEEN, Urine Bacteria 0 SEEN, Urine Mucus 0 SEEN 03/11/23 06:37: WBC 9.7, RBC 2.31 L, Hgb 7.3 L, Hct 23.2 L, MCV 100.4 H, MCH 31.6, MCHC 31.5 L, RDW Std Deviation 68.3 H, RDW Coeff of [place] 18.8 H, Plt Count 115 L, MPV 9.7, Immature Gran % (Auto) 0.600, Neut % (Auto) 78.8 H, Lymph % (Auto) 7.4 L, [place] % (Auto) 8.8, Eos % (Auto) 3.5, Baso % (Auto) 0.9, Absolute Neuts (auto) 7.6, Absolute Lymphs (auto) 0.72 L, Nucleated RBC % 0, Anisocytosis 2+, Sodium 143, Potassium 4.0, Chloride 113 H, Carbon Dioxide 22.0, Anion Gap 8, BUN 32 H, Creatinine 6.80 H, Estim Creat Clear Calc 15.37, Est GFR (MDRD) Af Amer 12 L, Est GFR (MDRD) Non-Af 10 L, BUN/Creatinine Ratio 4.7 L, Glucose 98, Calcium 8.3 L, Magnesium 2.1, Total Bilirubin 1.40 H, AST 58 H, ALT 41, Alkaline Phosphatase 298 H, Total Protein 7.2, Albumin 2.5 L, Globulin 4.7 H, Albumin/Globulin Ratio 0.5 L Micro: Microbiology 03/10/23 13:05 Urine, Clean Catch Urine Culture - Preliminary Culture exhibits no growth. 03/10/23 11:54 Nasal Secretion SARS-CoV-2 & FLU Antigen (Rapid) - Final
[2023-03-11] MEDS: Carvedilol 6.25 MG Tablet PO ×2 (15:17→22:27)
[2023-03-11] MEDS: Ampicillin/Sulbactam 3 GM in 0.9% Normal Saline (100mL MB+) 100 ML IV (17:48)
--- NOTE | 2023-03-11 18:03 | CASEMGMT ---
MARGARITA DURAN readmission note: Index admission: Admitted 02/22 w/ N/V, CP, and missed HD. Discharged home 02/28. Pt denied having any discharge needs. See this MARGARITA DURAN assessment 02/23/23. Current admission 11/ w/pancreatitis most likely 2/[address] March note, pt reportedly drinks 4x/week with 8 to 12 ounces each time. MARGARITA DURAN to room. Pt resting in bed. Pt states he has been taking his medications as prescribed up until about a week ago. He states he was doing well up until this past week when he began feeling ill. He states he had just been in to see PCP Linn Ware prior to last admission and had f/u with her after discharging from the hospital this last admission. He states he plans to call her office and schedule a f/u appt w/her after he discharges and he states he has several other appts he needs to schedule as well. He denies wanting/needing assistance from MARGARITA DURAN w/getting these scheduled, stating I'll take care of them. He denies having any discharge planning needs or concerns. Pt goes to OP HD @ [facility]. He did miss all of these appts this past week d/t being ill. Pt did receive HD today in the hospital. Mckinley DARLING RN, CM
[2023-03-11] MEDS: Doxazosin 4 MG Tablet 8 MG PO (22:27)
[2023-03-12] VITALS (8 sets, daily range): BP systolic 134–166; BP diastolic 79–101; PULSE 105–118; RESP 18–22; TEMP 36.6–37.3; O2SAT 94–98
[2023-03-12] MEDS: Enalaprilat 1.25 MG/ML Vial 2.5 MG IV ×4 (00:34→18:23)
[2023-03-12] MEDS: 0.9% Saline Lock 10 ML Syringe IV ×4 (00:37→08:17)
--- NOTE | 2023-03-12 07:48 | PN.HOSP_ITS ---
Subjective Subjective Abdomen feeling better, but still TTP. Tolerated some PO. Objective Data Objective Data Vital Signs: Vital Signs Temp Pulse Resp BP Pulse Ox O2 Del Method 37.0 C 111 H 18 147/98 H 97 Room Air 03/12/23 06:21 03/12/23 06:21 03/12/23 06:21 03/12/23 06:21 03/12/23 06:21 03/12/23 06:21 Oxygen Delivery Method Room Air Weight: 90.718 kg Body Mass Index (BMI) 30.3 Intake & Output: Intake and Output for Last 24 Hours 03/10/23 03/11/23 03/12/23 23:59 23:59 22:59 Intake Total 3076.25 / 3076.25 3126.00 / 3126.00 Output Total 750 / 750 750 / 1275 525 / 525 Balance 2326.25 / 2326.25 2376.00 / 1851.00 -525 / -525 Medical Nutrition Assessment Dietitian: Malnutrition Criteria Met Start: 03/11/23 10:40 Freq: Status: Active Protocol: Document 03/11/23 10:40 SLA (Rec: 03/11/23 10:40 SLA Desktop) Nutrition Malnutrition Evidence of Malnutrition Exists Yes Malnutrition (severe): Acute Illness/Injury Evidenced By Suboptimal Energy Intake ( Severe),Weight Loss (Severe) Clinical Problem Acute Disease or Injury Related Malnutrition Etiology related to nausea, vomiting, diarrhea and inadequate energy intake Signs/Symptoms as evidenced by 4.4% unintended wt loss and 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 Lab / Micro Data 03/12/23 07:30 03/12/23 07:30 Micro: Microbiology 03/10/23 13:05 Urine, Clean Catch Urine Culture - Final Culture exhibits no growth. 03/10/23 11:54 Nasal Secretion SARS-CoV-2 & FLU Antigen (Rapid) - Final Physical Exam Const alert and no apparent distress HEENT head/scalp atraumatic and moist oral mucous membranes Resp normal respiratory effort, no retractions, no use of accessory muscles and clear to auscultation bilaterally Cardio regular rate, regular rhythm, S1 normal heart sound and S2 normal heart sound GI normal to inspection, nondistended, normoactive bowel sounds, soft to palpation, non-tender and non-distended Neuro Speech: speech normal Assessment & Plan Assessment/Plan (1) Acute pancreatitis: QUALIFIERS: Acute pancreatitis complication: no infection or necrosis Pancreatitis type: alcohol induced Qualified Code(s): K85.20 - Alcohol induced acute pancreatitis without necrosis or infection PLAN: Likely 2/2 alcohol Pt reportedly drinks 4x/week with 8 to 12 ounces each time. He states that he has cut back his alcohol consumption from before. Pain control. (2) Colitis: PLAN: Diffuse thickening of the distal transverse and descending colon with pericolonic stranding. Persistent focal thickening fo the sigmoid colon with improved diverticulitis. Hepatomegaly with severe hepatic steatosis. Check stool studies. Unlikely C. difficile as patient is not having diarrhea but will check studies if possible. We will place the patient on empiric antibiotics. Etiology of this could be infectious, ischemic or inflammatory. (3) Essential hypertension: PLAN: Accelerated On amlodipine, PRN hydralazine, minoxidil 5, clonidine patch, enalaprilat Patient is slightly tachycardic. Will add carvedilol. PLAN: Plan Chronic conditions: * 4 end-stage renal disease requiring dialysis-nephrology will see the patient, his dialysis days Monday and Monday. AV fistula functional. HD catheter recently removed * bipolar disorder-patient's meds will be held at this time until he is not vomiting * GERD-patient will be placed on IV Protonix VTE prophylaxis: SQ heparin Charges/Coding Visit Charges Inpatient E&M: 43548 Subs Hosp L2
[2023-03-12] MEDS: HYDROmorphone 1 MG/ML Syringe IV (08:17)
[2023-03-12] MEDS: Pantoprazole Sodium 40 MG in 0.9% Normal Saline (100mL MB+) 100 ML 330 MG IV (08:17)
[2023-03-12] MEDS: Multivitamins,Ther W-Minerals Tablet 1 TABLET PO (08:18)
[2023-03-12] MEDS: SEVELAMER CARBONATE 800 MG TABLET PO ×3 (08:18→18:23)
[2023-03-12] MEDS: Thiamine Hydrochloride 100 MG Tablet PO (08:18)
[2023-03-12] MEDS: Folic Acid 1 MG Tablet PO (08:18)
[2023-03-12] MEDS: Minoxidil 2.5 MG Tablet 5 MG PO (08:19)
[2023-03-12] MEDS: amLODIPine 10 MG Tablet PO ×2 (08:19→23:31)
[2023-03-12] MEDS: LURASIDONE HCL 20 MG TABLET PO (08:19)
[2023-03-12] MEDS: Doxepin Hydrochloride 10 MG Capsule PO (08:20)
[2023-03-12] MEDS: Carvedilol 6.25 MG Tablet PO ×2 (08:27→23:35)
[2023-03-12 08:29] LABS: Absolute Lymphocyte Count 0.92 X10^3/uL (0.83-4.51); Absolute Neutrophil Count 5.1 X10^3/uL (2.0-7.7); Basophil# 0.06 X10^3/uL; Basophil% 0.8 % (0-1); Eosinophil# 0.52 X10^3/uL; Eosinophils% 6.8 % (0-5); Hematocrit 22.1 % (40-54); Hemoglobin 7.1 g/dL (13.0-16.5); Lymphocyte # 0.92 X10^3/ul (0.83-4.51); Mean Corp Hgb Conc 32.1 g/dL (32-36); Mean Corpuscular Hgb 31.7 pg (27.0-32.0); Mean Corpuscular Volume 98.7 fL (80-94); Mean Platelet Vol. 10.8 fl (6.2-12.0); Monocyte# 0.94 X10^3/uL; Monocyte% 12.3 % (0-10); NRBC Flagged by Analyzer 0 % (0-5); Neutrophil # 5.14 X10^3/uL (2.7-7.7); Neutrophil % 67.3 % (47-70); POSITIVE MORPHOLOGY YES; Platelet Count 117 K/mm3 (150-450); RBC Distribution Width CV 18.8 % (11.6-14.6); RBC Distribution Width SD 66.8 fl (35.1-43.9); Red Blood Count 2.24 M/mm3 (4.6-6.2); White Blood Count 7.6 K/mm3 (4.4-11.0)
[2023-03-12 08:32] LABS: Differential Indicated SCAN CRITERIA MET
[2023-03-12 09:22] LABS: Anion Gap 7 (5-15); BUN 22 mg/dL (7-18); BUN/Creat Ratio 4.1 RATIO (10-20); Calcium,Total 8.1 mg/dL (8.5-10.1); Chloride 107 mmol/L (98-107); Creatinine, Serum 5.42 mg/dL (0.70-1.30); EST Glomerular Filtration Rate 13 mL/min (>60); Est Glom Filt Rate - Afr Amer 16 mL/min (>60); Estimated Creatinine Clearance 19.28 ml/min; Glucose 86 mg/dL (74-106); Potassium 3.4 mmol/L (3.5-5.1); Sodium Level 138 mmol/L (136-145)
[2023-03-12 09:36] LABS: Anisocytosis 2+; Differential Comment SCANNED; Macrocytosis 1+; Microcytosis 1+; Polychromasia RARE
[2023-03-12] MEDS: 0.9% Normal Saline (250mL Bag) 250 ML 15 ML IV (18:23)
[2023-03-12] MEDS: Ampicillin/Sulbactam 3 GM in 0.9% Normal Saline (100mL MB+) 100 ML IV (18:23)
[2023-03-12] MEDS: oxyCODONE 5 MG Tablet PO (18:23)
[2023-03-12] MEDS: Doxazosin 4 MG Tablet 8 MG PO (23:31)
[2023-03-13] VITALS (19 sets, daily range): BP systolic 79–287; BP diastolic 68–101; PULSE 94–115; RESP 14–20; TEMP 36.3–38.1; O2SAT 94–100; BMI 30.3; BMI 29.2
[2023-03-13] MEDS: oxyCODONE 5 MG Tablet PO ×3 (00:03→22:05)
[2023-03-13] MEDS: Enalaprilat 1.25 MG/ML Vial 2.5 MG IV ×2 (00:11→06:28)
[2023-03-13] MEDS: Acetaminophen 325 MG Tablet 650 MG PO ×3 (02:25→22:05)
--- NOTE | 2023-03-13 07:17 | PN.HOSP_ITS ---
Reason for Visit Reason for Visit: Diagnoses Essential (primary) hypertension (03/10/23) Noninfective gastroenteritis and colitis, unspecified (03/10/23) Alcohol induced acute pancreatitis without necrosis or infection (03/10/23) Acute pancreatitis without necrosis or infection, unspecified (03/10/23) End stage renal disease (03/10/23) Subjective Subjective Still with abdominal pain, but improved. Tolerating some of the full liquid diet. Objective Data Objective Data Vital Signs: Vital Signs Temp Pulse Resp BP Pulse Ox O2 Del Method 36.8 C 101 H 18 132/85 H 98 Room Air 03/13/23 06:00 03/13/23 06:00 03/13/23 06:00 03/13/23 06:00 03/13/23 06:00 03/13/23 06:00 Oxygen Delivery Method Room Air Weight: 90.718 kg Body Mass Index (BMI) 30.3 Intake & Output: Intake and Output for Last 24 Hours 03/12/23 03/12/23 03/13/23 00:59 23:59 23:59 Intake Total 222 / 222 Output Total 200 / 200 Balance Medical Nutrition Assessment Dietitian: Malnutrition Criteria Met Start: 03/11/23 10:40 Freq: Status: Active Protocol: Document 03/11/23 10:40 SLA (Rec: 03/11/23 10:40 SLA Desktop) Nutrition Malnutrition Evidence of Malnutrition Exists Yes Malnutrition (severe): Acute Illness/Injury Evidenced By Suboptimal Energy Intake ( Severe),Weight Loss (Severe) Clinical Problem Acute Disease or Injury Related Malnutrition Etiology related to nausea, vomiting, diarrhea and inadequate energy intake Signs/Symptoms as evidenced by 4.4% unintended wt loss and 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 Lab / Micro Data 03/13/23 07:10 03/13/23 07:10 Labs: Laboratory Results - last 24 hr 03/12/23 07:30: WBC 7.6, RBC 2.24 L, Hgb 7.1 L, Hct 22.1 L, MCV 98.7 H, MCH 31 .7, MCHC 32.1, RDW Std Deviation 66.8 H, RDW Coeff of [place] 18.8 H, Plt Count 117 L, MPV 10.8, Immature Gran % (Auto) 0.800, Neut % (Auto) 67.3, Lymph % (Auto) 12.0 L, [place] % (Auto) 12.3 H, Eos % (Auto) 6.8 H, Baso % (Auto) 0.8, Absolute Neuts (auto) 5.1, Absolute Lymphs (auto) 0.92, Nucleated RBC % 0, Differential Comment SCANNED, Polychromasia RARE, Anisocytosis 2+, Microcytosis 1+, Macrocytosis 1+, Sodium 138, Potassium 3.4 L, Chloride 107, Carbon Dioxide 24.0, Anion Gap 7, BUN 22 H, Creatinine 5.42 H, Estim Creat Clear Calc 19.28, Est GFR (MDRD) Af Amer 16 L, Est GFR (MDRD) Non-Af 13 L, BUN/Creatinine Ratio 4.1 L, Glucose 86, Calcium 8.1 L Micro: Microbiology 03/10/23 13:49 Blood Culture (Wb) - Right Wrist Blood Culture - Preliminary No growth in 48 hours. 03/10/23 11:02 Blood Culture (Wb) - Right Hand Blood Culture - Preliminary No growth in 48 hours. 03/10/23 13:05 Urine, Clean Catch Urine Culture - Final Culture exhibits no growth. 03/10/23 11:54 Nasal Secretion SARS-CoV-2 & FLU Antigen (Rapid) - Final Physical Exam Const alert and no apparent distress HEENT head/scalp atraumatic and moist oral mucous membranes Resp normal respiratory effort, no retractions, no use of accessory muscles and clear to auscultation bilaterally Cardio regular rate, regular rhythm, S1 normal heart sound and S2 normal heart sound GI normal to inspection, nondistended, normoactive bowel sounds, soft to palpation, non-tender and non-distended Assessment & Plan Assessment/Plan (1) Acute pancreatitis: QUALIFIERS: Acute pancreatitis complication: no infection or necrosis Pancreatitis type: alcohol induced Qualified Code(s): K85.20 - Alcohol induced acute pancreatitis without necrosis or infection PLAN: Likely 2/2 alcohol Pt reportedly drinks 4x/week with 8 to 12 ounces each time. He states that he has cut back his alcohol consumption from before. Pain control. (2) Colitis: PLAN: Diffuse thickening of the distal transverse and descending colon with pericolonic stranding. Persistent focal thickening fo the sigmoid colon with improved diverticulitis. Hepatomegaly with severe hepatic steatosis. Check stool studies. Unlikely C. difficile as patient is not having diarrhea but will check studies if possible. We will place the patient on empiric antibiotics. Etiology of this could be infectious, ischemic or inflammatory. (3) Essential hypertension: PLAN: Accelerated On amlodipine, PRN hydralazine, minoxidil 5, clonidine patch, enalaprilat Patient is slightly tachycardic. Will add carvedilol. (4) Anemia: QUALIFIERS: Iron deficiency anemia type: chronic blood loss PLAN: suspect anemia of chronic disease. Will transfuse 1 unit of PRBCs. Iron 91, TIBC 4670 on the 02/22. B12, Folate, TSH WNL Check hemoccult. PLAN: Plan Chronic conditions: * 4 end-stage renal disease requiring dialysis-nephrology will see the patient, his dialysis days Monday and Monday. AV fistula functional. HD catheter recently removed * bipolar disorder-patient's meds will be held at this time until he is not vomiting * GERD-pantoprazole. VTE prophylaxis: SQ heparin Disposition: TBD. Pending on anemia, diet tolerance. Charges/Coding Visit Charges Inpatient E&M: 21669 Subs Hosp L2
[2023-03-13 07:21] LABS: Absolute Lymphocyte Count 1.06 X10^3/uL (0.83-4.51); Absolute Neutrophil Count 5.2 X10^3/uL (2.0-7.7); Basophil# 0.06 X10^3/uL; Basophil% 0.7 % (0-1); Eosinophil# 0.46 X10^3/uL; Eosinophils% 5.7 % (0-5); Hematocrit 20.9 % (40-54); Hemoglobin 6.6 g/dL (13.0-16.5); Lymphocyte # 1.06 X10^3/ul (0.83-4.51); Mean Corp Hgb Conc 31.6 g/dL (32-36); Mean Corpuscular Hgb 31.7 pg (27.0-32.0); Mean Corpuscular Volume 100.5 fL (80-94); Mean Platelet Vol. 10.3 fl (6.2-12.0); Monocyte# 1.22 X10^3/uL; NRBC Flagged by Analyzer 0 % (0-5); Neutrophil # 5.22 X10^3/uL (2.7-7.7); Neutrophil % 64.2 % (47-70); POSITIVE MORPHOLOGY YES; Platelet Count 114 K/mm3 (150-450); RBC Distribution Width CV 18.6 % (11.6-14.6); RBC Distribution Width SD 66.4 fl (35.1-43.9); Red Blood Count 2.08 M/mm3 (4.6-6.2); White Blood Count 8.1 K/mm3 (4.4-11.0)
[2023-03-13 07:30] LABS: Differential Indicated SCAN CRITERIA MET
[2023-03-13] MEDS: PureFlow B 3K Dialysis Soln 1 BAG 6 BAG PF (08:00)
[2023-03-13] MEDS: 0.9% Normal Saline 1,000 ML IV.SOLN. 1000 ML OPERA.SITE (08:00)
[2023-03-13 08:07] LABS: Anion Gap 8 (5-15); BUN 24 mg/dL (7-18); Calcium,Total 7.8 mg/dL (8.5-10.1); Chloride 108 mmol/L (98-107); EST Glomerular Filtration Rate 12 mL/min (>60); Est Glom Filt Rate - Afr Amer 14 mL/min (>60); Estimated Creatinine Clearance 17.42 ml/min; Glucose 85 mg/dL (74-106); Potassium 3.4 mmol/L (3.5-5.1); Sodium Level 138 mmol/L (136-145)
[2023-03-13 08:19] LABS: Thyroid Stim Hormone (TSH) 3.57 uIU/mL (0.358-3.74)
[2023-03-13 09:18] LABS: Differential Comment SCANNED
[2023-03-13 09:19] LABS: Anisocytosis 2+; Hypochromasia 1+; Macrocytosis 1+; Microcytosis 1+
[2023-03-13 09:53] LABS: Vitamin B12 459 pg/mL (211-911)
[2023-03-13] MEDS: Pantoprazole Sodium 40 MG Tablet PO (11:50)
[2023-03-13] MEDS: 0.9% Saline Lock 10 ML Syringe IV ×2 (11:50→12:37)
[2023-03-13] MEDS: SEVELAMER CARBONATE 800 MG TABLET PO ×2 (11:51→16:41)
[2023-03-13] MEDS: Minoxidil 2.5 MG Tablet 5 MG PO (11:51)
[2023-03-13] MEDS: amLODIPine 10 MG Tablet PO ×2 (11:51→22:06)
[2023-03-13] MEDS: LURASIDONE HCL 20 MG TABLET PO (11:52)
[2023-03-13] MEDS: Multivitamins,Ther W-Minerals Tablet 1 TABLET PO (11:52)
[2023-03-13] MEDS: Thiamine Hydrochloride 100 MG Tablet PO (11:52)
[2023-03-13] MEDS: Folic Acid 1 MG Tablet PO (11:52)
[2023-03-13] MEDS: Doxepin Hydrochloride 10 MG Capsule PO (11:52)
[2023-03-13] MEDS: 0.9% Normal Saline (500mL Bag) 500 ML 15 ML IV (12:37)
[2023-03-13] MEDS: Carvedilol 6.25 MG Tablet PO ×2 (12:37→22:06)
--- NOTE | 2023-03-13 16:39 | NURSING ---
flushing IVT tubing. see I&O for accurate blood amount intake
[2023-03-13] MEDS: Ampicillin/Sulbactam 3 GM in 0.9% Normal Saline (100mL MB+) 100 ML IV (17:43)
[2023-03-13] MEDS: Doxazosin 4 MG Tablet 8 MG PO (22:05)
[2023-03-14 05:37] VITALS: BP 142/77; PULSE 101; RESP 16; TEMP 36.8; O2SAT 100
--- NOTE | 2023-03-14 07:24 | PN.HOSP_ITS ---
Reason for Visit Reason for Visit: Diagnoses Anemia, unspecified (03/10/23) Essential (primary) hypertension (03/10/23) Noninfective gastroenteritis and colitis, unspecified (03/10/23) Alcohol induced acute pancreatitis without necrosis or infection (03/10/23) Acute pancreatitis without necrosis or infection, unspecified (03/10/23) End stage renal disease (03/10/23) Subjective Subjective Feeling well. Tolerating PO. Abdominal pain improved. Objective Data Objective Data Vital Signs: Vital Signs Temp Pulse Resp BP Pulse Ox O2 Del Method 36.8 C 101 H 16 142/77 H 100 Room Air 03/14/23 05:37 03/14/23 05:37 03/14/23 05:37 03/14/23 05:37 03/14/23 05:37 03/14/23 05:37 Oxygen Delivery Method Room Air Weight: 87.7 kg Body Mass Index (BMI) 29.2 Intake & Output: Intake and Output for Last 24 Hours 03/12/23 03/13/23 03/14/23 23:59 23:59 23:59 Intake Total 2115.75 / 2115.75 400 / 400 Output Total 3400 / 3400 200 / 200 Balance -1284.25 / -1284.25 200 / 200 Medical Nutrition Assessment Dietitian: Malnutrition Criteria Met Start: 03/11/23 10:40 Freq: Status: Active Protocol: Document 03/11/23 10:40 SLA (Rec: 03/11/23 10:40 SLA Desktop) Nutrition Malnutrition Evidence of Malnutrition Exists Yes Malnutrition (severe): Acute Illness/Injury Evidenced By Suboptimal Energy Intake ( Severe),Weight Loss (Severe) Clinical Problem Acute Disease or Injury Related Malnutrition Etiology related to nausea, vomiting, diarrhea and inadequate energy intake Signs/Symptoms as evidenced by 4.4% unintended wt loss and 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 Lab / Micro Data 03/14/23 07:45 03/14/23 07:45 Labs: Laboratory Results - last 24 hr 03/13/23 07:10: WBC 8.1, RBC 2.08 L, Hgb 6.6 L, Hct 20.9 L, MCV 100.5 H, MCH 31.7, MCHC 31.6 L, RDW Std Deviation 66.4 H, RDW Coeff of [place] 18.6 H, Plt Count 114 L, MPV 10.3, Immature Gran % (Auto) 1.400 H, Neut % (Auto) 64.2, Lymph % (Auto) 13.0 L, [place] % (Auto) 15.0 H, Eos % (Auto) 5.7 H, Baso % (Auto) 0.7, Absolute Neuts (auto) 5.2, Absolute Lymphs (auto) 1.06, Nucleated RBC % 0, Differential Comment SCANNED, Hypochromasia 1+, Anisocytosis 2+, Microcytosis 1+, Macrocytosis 1+, Sodium 138, Potassium 3.4 L, Chloride 108 H, Carbon Dioxide 22.0, Anion Gap 8, BUN 24 H, Creatinine 6.00 H, Estim Creat Clear Calc 17.42, Est GFR (MDRD) Af Amer 14 L, Est GFR (MDRD) Non-Af 12 L, BUN/Creatinine Ratio 4.0 L, Glucose 85, Calcium 7.8 L, Vitamin B12 459, Folate 11.30, TSH 3.57 03/13/23 10:35: Blood Type O POSITIVE, Antibody Screen NEGATIVE, Crossmatch See Detail Micro: Microbiology 03/10/23 13:49 Blood Culture (Wb) - Right Wrist Blood Culture - Preliminary No growth in 48 hours. 03/10/23 11:02 Blood Culture (Wb) - Right Hand Blood Culture - Preliminary No growth in 48 hours. 03/10/23 13:05 Urine, Clean Catch Urine Culture - Final Culture exhibits no growth. 03/10/23 11:54 Nasal Secretion SARS-CoV-2 & FLU Antigen (Rapid) - Final Physical Exam Const alert and no apparent distress GI non-tender and non-distended Assessment & Plan Assessment/Plan (1) Acute pancreatitis: QUALIFIERS: Acute pancreatitis complication: no infection or necrosis Pancreatitis type: alcohol induced Qualified Code(s): K85.20 - Alc ohol induced acute pancreatitis without necrosis or infection PLAN: Likely 2/2 alcohol Pt reportedly drinks 4x/week with 8 to 12 ounces each time. He states that he has cut back his alcohol consumption from before. Pain control. I advised patient to quit drinking alcohol altogether as I would be concerned that he may develop chronic pancreatitis and possibly become an insulin-depende nt diabetic or require pancreatic replacement enzymes (2) Colitis: PLAN: Improving diffuse thickening of the distal transverse and descending colon with pericolonic stranding. Persistent focal thickening fo the sigmoid colon with improved diverticulitis. Hepatomegaly with severe hepatic steatosis. Check stool studies. Unlikely C. difficile as patient is not having diarrhea but will check studies if possible. We will place the patient on empiric antibiotics. Etiology of this could be infectious, ischemic or inflammatory. Unlikely C. difficile as patient is really not had diarrhea. Do recommend the patient follow-up with gastroenterology for colonoscopy as outpatient. We will continue with antibiotics upon discharge. (3) Essential hypertension: PLAN: Accelerated. Currently improved On amlodipine, PRN hydralazine, minoxidil 5, clonidine patch, enalaprilat Will add carvedilol. (4) Anemia: QUALIFIERS: Iron deficiency anemia type: chronic blood loss PLAN: suspect anemia of chronic disease. Will transfuse 1 unit of PRBCs. Iron 91, TIBC 4670 on the 02/22. B12, Folate, TSH WNL Check hemoccult. PLAN: Plan Chronic conditions: * 4 end-stage renal disease requiring dialysis-nephrology will see the patient, his dialysis days Monday and Monday. AV fistula functional. HD catheter recently removed * bipolar disorder-patient's meds will be held at this time until he is not vomiting * GERD-pantoprazole. VTE prophylaxis: SQ heparin Disposition: To home today.
[2023-03-14 08:02] LABS: Absolute Lymphocyte Count 0.99 X10^3/uL (0.83-4.51); Absolute Neutrophil Count 6.3 X10^3/uL (2.0-7.7); Basophil# 0.07 X10^3/uL; Basophil% 0.8 % (0-1); Eosinophil# 0.47 X10^3/uL; Eosinophils% 5.1 % (0-5); Hematocrit 24.7 % (40-54); Hemoglobin 7.8 g/dL (13.0-16.5); Lymphocyte # 0.99 X10^3/ul (0.83-4.51); Lymphocyte % 10.8 % (19-41); Mean Corp Hgb Conc 31.6 g/dL (32-36); Mean Corpuscular Hgb 30.8 pg (27.0-32.0); Mean Corpuscular Volume 97.6 fL (80-94); Mean Platelet Vol. 10.7 fl (6.2-12.0); Monocyte# 1.28 X10^3/uL; NRBC Flagged by Analyzer 0 % (0-5); Neutrophil % 68.6 % (47-70); POSITIVE MORPHOLOGY YES; Platelet Count 125 K/mm3 (150-450); RBC Distribution Width CV 19.9 % (11.6-14.6); RBC Distribution Width SD 69.9 fl (35.1-43.9); Red Blood Count 2.53 M/mm3 (4.6-6.2); White Blood Count 9.2 K/mm3 (4.4-11.0)
[2023-03-14 08:06] LABS: Differential Indicated SCAN CRITERIA MET
[2023-03-14 08:21] VITALS: BP 137/79; PULSE 110; RESP 18; TEMP 36.8; O2SAT 98
[2023-03-14] MEDS: amLODIPine 10 MG Tablet PO (08:24)
[2023-03-14] MEDS: Folic Acid 1 MG Tablet PO (08:24)
[2023-03-14] MEDS: Multivitamins,Ther W-Minerals Tablet 1 TABLET PO (08:24)
[2023-03-14] MEDS: Carvedilol 6.25 MG Tablet PO (08:24)
[2023-03-14] MEDS: Thiamine Hydrochloride 100 MG Tablet PO (08:25)
[2023-03-14] MEDS: LURASIDONE HCL 20 MG TABLET PO (08:25)
[2023-03-14] MEDS: SEVELAMER CARBONATE 800 MG TABLET PO (08:25)
[2023-03-14] MEDS: Minoxidil 2.5 MG Tablet 5 MG PO (08:25)
[2023-03-14] MEDS: Doxepin Hydrochloride 10 MG Capsule PO (08:25)
[2023-03-14] MEDS: Pantoprazole Sodium 40 MG Tablet PO (08:26)
[2023-03-14 08:30] LABS: Anion Gap 5 (5-15); BUN 22 mg/dL (7-18); BUN/Creat Ratio 4.2 RATIO (10-20); Calcium,Total 7.9 mg/dL (8.5-10.1); Chloride 106 mmol/L (98-107); Creatinine, Serum 5.28 mg/dL (0.70-1.30); EST Glomerular Filtration Rate 14 mL/min (>60); Est Glom Filt Rate - Afr Amer 17 mL/min (>60); Estimated Creatinine Clearance 19.79 ml/min; Glucose 91 mg/dL (74-106); Potassium 3.7 mmol/L (3.5-5.1); Sodium Level 136 mmol/L (136-145)
[2023-03-14 08:34] LABS: Anisocytosis 1+
--- NOTE | 2023-03-14 09:21 | DS.PCM_ITS ---
Providers Date of Admission: 03/10/23 Primary Care Physician: Dr. Linn Ware MD Consultations 03/10/23 15:36 Consult: Nephrology Routine Consulting Provider: Alysha Rico Reason for Consult: ESRD EMERGENT Consult: No MD Notified: Yes Date Notified: 03/10/23 Time Notified: 14:31 Method of Notification: Verbal Reason For Visit: PANCREATITIS Diagnosis Discharge Diagnosis (1) Acute pancreatitis: Status: Acute Code(s): K85.90 - Acute pancreatitis without necrosis or infection, unspecified Qualifiers: Pancreatitis type: alcohol induced Acute pancreatitis complication: no infection or necrosis Qualified Code(s): K85.20 - Alcohol induced acute pancreatitis without necrosis or infection Plan: Likely 2/2 alcohol Pt reportedly drinks 4x/week with 8 to 12 ounces each time. He states that he has cut back his alcohol consumption from before. Pain control. I advised patient to quit drinking alcohol altogether as I would be concerned that he may develop chronic pancreatitis and possibly become an insulin-depend ent diabetic or require pancreatic replacement enzymes (2) Colitis: Status: Acute Code(s): K52.9 - Noninfective gastroenteritis and colitis, unspecified Plan: Improving diffuse thickening of the distal transverse and descending colon with pericol onic stranding. Persistent focal thickening fo the sigmoid colon with improved diverticulitis. Hepatomegaly with severe hepatic steatosis. Check stool studies. Unlikely C. difficile as patient is not having diarrhea but will check studies if possible. We will place the patient on empiric antibiotics. Etiology of this could be infectious, ischemic or inflammatory. Unlikely C. difficile as patient is really not had diarrhea. Do recommend the patient follow-up with gastroenterology for colonoscopy as outpatient. We will continue with antibiotics upon discharge. (3) Essential hypertension: Status: Acute Code(s): I10 - Essential (primary) hypertension Plan: Accelerated. Currently improved On amlodipine, PRN hydralazine, minoxidil 5, clonidine patch, enalaprilat Will add carvedilol. (4) Anemia: Status: Acute Code(s): D64.9 - Anemia, unspecified Qualifiers: Iron deficiency anemia type: chronic blood loss Plan: suspect anemia of chronic disease. Will transfuse 1 unit of PRBCs. Iron 91, TIBC 4670 on the 02/22. B12, Folate, TSH WNL Check hemoccult. Plan Chronic conditions: * 4 end-stage renal disease requiring dialysis-nephrology will see the patient, his dialysis days Monday and Monday. AV fistula functional. HD catheter recently removed * bipolar disorder-patient's meds will be held at this time until he is not vomiting * GERD-pantoprazole. VTE prophylaxis: SQ heparin Disposition: To home today. Medications at Discharge Home Medications cholecalciferol (vitamin D3) 1,250 mcg (50,000 unit) capsule 1,250 mcg PO QWEEK supplement #12 caps 05/26/22 aspirin 81 mg tablet,delayed release 81 mg PO BREAKFAST HEART HEALTH #30 tabs 07/05/22 minoxidil 2.5 mg tablet 5 mg (2 x 2.5 mg) PO DAILY hair growth #60 tabs 07/05/22 amlodipine 10 mg tablet 10 mg PO BID BLOOD PRESSURE #180 tabs 07/21/22 doxazosin 8 mg tablet 8 mg PO QHS BLOOD PRESSURE #90 tabs 07/21/22 clonidine 0.3 mg/24 hr weekly transdermal patch 1 patch transdermal QWEEK bp #4 ea 08/02/22 lurasidone 20 mg tablet See Rx Instructions .Route .COMPLEX bipolar #30 tabs 01/18/23 ondansetron 4 mg disintegrating tablet 4 mg PO Q8H PRN PRN Nausea #30 tabs 02/14/23 omeprazole 40 mg capsule,delayed release 40 mg PO DAILY ACID REFLUX #30 caps 02/15/23 doxepin 10 mg capsule 10 mg PO DAILY depres 02/22/23 sevelamer carbonate 800 mg tablet 800 mg PO TID 03/10/23 amoxicillin 875 mg-potassium clavulanate 125 mg tablet 1 tab PO BID #12 tabs 03/14/23 carvedilol 6.25 mg tablet 6.25 mg PO BID #60 tabs 03/14/23 multivitamin-iron 9 mg-folic acid 400 mcg-calcium and minerals tablet (High Potency Multivitamin (w-iron)) 1 tab PO BREAKFAST #0 tabs 03/14/23 oxycodone 5 mg tablet 5 mg PO Q4H PRN PRN Pain Score 6-10 3 days #12 tabs 03/14/23 Hospital Course Operations None Procedures Dialysis Summary of Care Provided Minutes Spent on Discharge: 35 Hospital Course: Patient presents with abdominal pain. Was found to have acute pancreatitis as well as colitis. Peritonitis felt to be likely alcohol induced. Patient did well in regards to his pancreatitis. Patient had more issues with his colitis is more the abdominal pain was umbilical. Patient was started on antibiotics for colitis. The etiology colitis is unclear. Patient was not having diarrhea so is not felt to be due to C. difficile but cannot rule out this being infect ious. Could also be inflammatory as of the patient's never had any issues with that in the past but also ischemic. Though with ischemia, patient certainly does not fit the age range for that but he does have risk factors being on end- stage renal disease and severe hypertension. Patient did have 6 profound issues with his hypertension and his home medications were continued, however labetalol was discontinued and patient was started on carvedilol in its place and blood pressure has improved. Patient continue with his home medications as previously instructed with the exception of labetalol being dropped off patient on carvedilol. Patient did have drop in his hemoglobin did require unit packed red blood cells. Currently his hemoglobin is 7.8. This will be further followed up to see if he needs long-term iron placements or EPO eaten with dialysis. Patient did have dialysis while he is here and had no issues with that. 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 Weight / BMI Weight Weight: 87.7 kg Body Mass Index (BMI) 29.2 ABG / Lab / Microbiology Data 03/14/23 07:45 03/14/23 07:45 Laboratory: Laboratory Results - last 24 hr 03/13/23 07:10: Vitamin B12 459 03/13/23 10:35: Blood Type O POSITIVE, Antibody Screen NEGATIVE, Crossmatch See Detail 03/14/23 07:45: WBC 9.2, RBC 2.53 L, Hgb 7.8 L, Hct 24.7 L, MCV 97.6 H, MCH 30.8, MCHC 31.6 L, RDW Std Deviation 69.9 H, RDW Coeff of [place] 19.9 H, Plt Count 125 L, MPV 10.7, Immature Gran % (Auto) 0.700, Neut % (Auto) 68.6, Lymph % (Auto) 10.8 L, [place] % (Auto) 14.0 H, Eos % (Auto) 5.1 H, Baso % (Auto) 0.8, Absolute Neuts (auto) 6.3, Absolute Lymphs (auto) 0.99, Nucleated RBC % 0, Anisocytosis 1+, Sodium 136, Potassium 3.7, Chloride 106, Carbon Dioxide 25.0, Anion Gap 5, BUN 22 H, Creatinine 5.28 H, Estim Creat Clear Calc 19.79, Est GFR (MDRD) Af Amer 17 L, Est GFR (MDRD) Non-Af 14 L, BUN/Creatinine Ratio 4.2 L, Glucose 91, Calcium 7.9 L Microbiology: Microbiology 03/10/23 13:49 Blood Culture (Wb) - Right Wrist Blood Culture - Preliminary No growth in 48 hours. 03/10/23 11:02 Blood Culture (Wb) - Right Hand Blood Culture - Preliminary No growth in 48 hours. 03/10/23 13:05 Urine, Clean Catch Urine Culture - Final Culture exhibits no growth. 03/10/23 11:54 Nasal Secretion SARS-CoV-2 & FLU Antigen (Rapid) - Final D/C Instructions Discharge Diet: - ([place] diet, advance as tolerated to your prior dietary restrictions.) Call your doctor if you observe: - (Worsening abdominal pain) Meaningful Use Info Meaningful Use Diagnoses (Choose all that apply): None applicable Discharge Plan Admission Admit Date/Time: 03/10/23 14:20 Primary Reason for Your Visit: Pancreatitis. Colitis. Attending Provider: Casey March Primary Care Provider: Linn Ware Consulting Providers: Alysha Rico; Jarrett Diego Instructions Additional Instructions / Restrictions: You presented with acute pancreatitis as well as colitis. The pancreatitis may have been due to alcohol and therefore it is recommend that you not consume alcohol any further. Concern also is if this is due to alcoholic pancreatitis she could develop more severe chronic pancreatitis which she may stop producing insulin as well as pancreatic enzymes which would require treatment with medications, such as insulin. He also had colitis. You are being treated as though this could be infectious, which it could, be but it could also be inflammatory disease, such as ulcerative colitis. I do recommend that you follow-up with gastroenterology as you will require colonoscopy in the future to evaluate this. Please continue with antibiotics as instructed. Your blood pressure was very high upon arrival likely due to your known hypertension but also exacerbated by the pancreatitis colitis the urine and abdominal pain that you are dealing with. Your medications can remain the same, however, I have discontinued the labetalol and started you on carvedilol (Coreg). He also had anemia. You are chronically anemic but your blood count did drop low enough where you warranted a transfusion. Blood count afterwards was improved. This will need to be further followed up with your primary care provider and project account manager. You may need long-term treatment for this such as iron replacements but they can facilitate that if that becomes necessary. Discharge Orders/Prescriptions Prescriptions: New carvedilol 6.25 mg Tablet 6.25 mg PO BID Qty: 60 0RF High Potency Multivit (w-iron) 9 mg iron-400 mcg Tablet 1 tab PO BREAKFAST Qty: 0 0RF oxycodone 5 mg Tablet 5 mg PO Q4H PRN PRN (Reason: Pain Score 6-10) 3 Days Qty: 12 0RF amoxicillin-pot clavulanate 875-125 mg tablet 1 tab PO BID Qty: 12 0RF Continued cholecalciferol (vitamin D3) 1,250 mcg (50,000 unit) capsule 1,250 mcg PO QWEEK Qty: 12 0RF Patient Comments: PT STATES TAKES M,W,F amlodipine 10 mg tablet 10 mg PO BID Qty: 180 3RF doxazosin 8 mg tablet 8 mg PO QHS Qty: 90 3RF ondansetron 4 mg tablet,disintegrating 4 mg PO Q8H PRN PRN (Reason: Nausea) Qty: 30 0RF doxepin 10 mg capsule 10 mg PO DAILY sevelamer carbonate 800 mg tablet 800 mg PO TID Patient Comments: TAKE 1 TABLET BY MOUTH THREE TIMES A DAY WITH MEALS minoxidil 2.5 mg tablet 5 mg PO DAILY Qty: 60 2RF aspirin 81 mg tablet,delayed release (DR/EC) 81 mg PO BREAKFAST Qty: 30 2RF clonidine 0.3 mg/24 hr patch weekly 1 patch transdermal QWEEK Qty: 4 12RF Patient Comments: PT GIULIA APPLIES NEW PATCHES ON TUESDAYS lurasidone 20 mg tablet See Rx Instructions .ROUTE .COMPLEX Qty: 30 2RF Dose Instruction: TAKE 1 TABLET BY MOUTH EVERY EVENING WITH FOOD (AT LEAST 350 CALORIES) Rx Instructions: TAKE 1 TABLET BY MOUTH EVERY EVENING WITH FOOD (AT LEAST 350 CALORIES) omeprazole 40 mg capsule,delayed release(DR/EC) 40 mg PO DAILY Qty: 30 5RF Discontinued labetalol 200 mg tablet 200 mg PO TIDCM Qty: 90 5RF Referrals / Follow Up: [facility] [Provider Group] - Within 3 Months Linn Ware MD [Primary Care Provider] - Within 2 Weeks Disposition Disposition (needs filled in before D/C Order can be placed): Home, Self Care Charges/Coding Visit Charges Inpatient E&M: 45938 Disch Hosp >30min
--- NOTE | 2023-03-14 09:46 | PHA.DC.MC.R ---
Pharmacy [facility] has performed discharge medication reconciliation and counseling for this patient. The patient's discharge medication list was reviewed for discrepancies and discrepancies were resolved. The patient was counseled on the following discharge medications and changes in medications for homegoing were reviewed. The Reason for Use, instructions for use, and potential side effects were reviewed for all new medications. The patient's questions regarding all of their medications were answered. 1. Augmentin 875 PO BID x 6 days 2. Carvedilol 6.25 mg PO BID 3. Oxycodone 5 mg PO Q4H PRN pain The patient was able to verbally demonstrate an understanding of their discharge medications. Medications at Discharge Home Medications cholecalciferol (vitamin D3) 1,250 mcg (50,000 unit) capsule 1,250 mcg PO QWEEK supplement #12 caps 05/26/22 aspirin 81 mg tablet,delayed release 81 mg PO BREAKFAST HEART HEALTH #30 tabs 07/05/22 minoxidil 2.5 mg tablet 5 mg (2 x 2.5 mg) PO DAILY hair growth #60 tabs 07/05/22 amlodipine 10 mg tablet 10 mg PO BID BLOOD PRESSURE #180 tabs 07/21/22 doxazosin 8 mg tablet 8 mg PO QHS BLOOD PRESSURE #90 tabs 07/21/22 clonidine 0.3 mg/24 hr weekly transdermal patch 1 patch transdermal QWEEK bp #4 ea 08/02/22 lurasidone 20 mg tablet See Rx Instructions .Route .COMPLEX bipolar #30 tabs 01/18/23 ondansetron 4 mg disintegrating tablet 4 mg PO Q8H PRN PRN Nausea #30 tabs 02/14/23 omeprazole 40 mg capsule,delayed release 40 mg PO DAILY ACID REFLUX #30 caps 02/15/23 doxepin 10 mg capsule 10 mg PO DAILY depres 02/22/23 sevelamer carbonate 800 mg tablet 800 mg PO TID 03/10/23 amoxicillin 875 mg-potassium clavulanate 125 mg tablet 1 tab PO BID #12 tabs 03/14/23 carvedilol 6.25 mg tablet 6.25 mg PO BID #60 tabs 03/14/23 multivitamin-iron 9 mg-folic acid 400 mcg-calcium and minerals tablet (High Potency Multivitamin (w-iron)) 1 tab PO BREAKFAST #0 tabs 03/14/23 oxycodone 5 mg tablet 5 mg PO Q4H PRN PRN Pain Score 6-10 3 days #12 tabs 03/14/23
--- NOTE | 2023-03-14 10:07 | CASEMGMT ---
RN CM into pt room, pt denies any homegoing needs. Pt up SBA. Pt ready for dc.
== END 2023-03-14 11:04 | disposition home or self-care (01) | DRG 282 ==
LOC: ED 14:14 → MS3 15:33
PROVIDERS: Family Medicine; Admitting Provider Internal Medicine; Emergency Provider Emergency Medicine; PCP Internal Medicine
DX: K85.20 Alcohol induced acute pancreatitis without necrosis or infection (principal); K65.9 Peritonitis, unspecified; I13.2 Hypertensive heart and chronic kidney disease with heart failure and with stage 5 chronic kidney disease, or end stage renal disease; N18.6 End stage renal disease; D63.1 Anemia in chronic kidney disease; R16.0 Hepatomegaly, not elsewhere classified; E11.22 Type 2 diabetes mellitus with diabetic chronic kidney disease; I50.32 Chronic diastolic (congestive) heart failure; F31.9 Bipolar disorder, unspecified; Z99.2 Dependence on renal dialysis; K76.0 Fatty (change of) liver, not elsewhere classified; D50.0 Iron deficiency anemia secondary to blood loss (chronic); I16.0 Hypertensive urgency; E86.0 Dehydration; K57.32 Diverticulitis of large intestine without perforation or abscess without bleeding; K21.9 Gastro-esophageal reflux disease without esophagitis; F17.220 Nicotine dependence, chewing tobacco, uncomplicated; Z82.3 Family history of stroke; Z79.82 Long term (current) use of aspirin
CPT/HCPCS: 36415; 71045; 74176; 80048; 80053; 81001; 82607; 82746; 83690; 83735; 84100; 84443; 84484; 85025; 86644; 86850; 86900; 86901; 86920; 86922; 87040; 87086; 87428; 90937; 93005; 97802; 99285; 99406; J7030; J7040; J7050; P9040; A4216; G0257; J0295; J2405

== ENCOUNTER 2023-03-23 19:16 | Emergency (ER) | payer MEDICAID, SELFPAY ==
[2023-03-23 19:17] VITALS: BP 186/127; PULSE 126; RESP 18; TEMP 36.3; O2SAT 98; BMI 30.4
[2023-03-23 19:45] LABS: Absolute Lymphocyte Count 0.96 X10^3/uL (0.83-4.51); Absolute Neutrophil Count 7.1 X10^3/uL (2.0-7.7); Basophil# 0.11 X10^3/uL; Basophil% 1.2 % (0-1); Eosinophil# 0.12 X10^3/uL; Eosinophils% 1.3 % (0-5); Hematocrit 29.4 % (40-54); Hemoglobin 9.2 g/dL (13.0-16.5); Lymphocyte # 0.96 X10^3/ul (0.83-4.51); Lymphocyte % 10.8 % (19-41); Mean Corp Hgb Conc 31.3 g/dL (32-36); Mean Corpuscular Hgb 30.4 pg (27.0-32.0); Mean Platelet Vol. 9.3 fl (6.2-12.0); Monocyte# 0.63 X10^3/uL; Monocyte% 7.1 % (0-10); NRBC Flagged by Analyzer 0 % (0-5); Neutrophil # 7.06 X10^3/uL (2.7-7.7); Platelet Count 326 K/mm3 (150-450); RBC Distribution Width CV 18.6 % (11.6-14.6); RBC Distribution Width SD 64.4 fl (35.1-43.9); Red Blood Count 3.03 M/mm3 (4.6-6.2); White Blood Count 8.9 K/mm3 (4.4-11.0)
[2023-03-23 20:04] LABS: ALB/GLOB Ratio 0.6 RATIO (0.9-2.4); AST(SGOT) 62 U/L (15-37); Alanine Aminotransfer ALT/SGPT 48 U/L (16-61); Albumin, Serum 3.4 g/dL (3.2-5.0); Alkaline Phosphatase 263 U/L (45-117); Anion Gap 19 (5-15); BUN 24 mg/dL (7-18); BUN/Creat Ratio 3.6 RATIO (10-20); Calcium,Total 9.4 mg/dL (8.5-10.1); Chloride 105 mmol/L (98-107); EST Glomerular Filtration Rate 10 mL/min (>60); Est Glom Filt Rate - Afr Amer 13 mL/min (>60); Globulin 5.7 g/dL (2.2-4.2); Glucose 107 mg/dL (74-106); Potassium 4.4 mmol/L (3.5-5.1); Protein, Total 9.1 g/dL (6.4-8.2); Sodium Level 140 mmol/L (136-145)
[2023-03-23 21:14] LABS: Bacteria 0 SEEN /hpf (None Seen); Mucous, Urine 0 SEEN /hpf (<or=2+)
[2023-03-23 21:15] LABS: Color, Urine Yellow (Yellow); Glucose, Dipstick Normal (Normal); Ketone-Dipstick 5 mg/dl (Negative); Leukocyte Esterase-Dipstick 25 /ul (Negative); Nitrite-Dipstick Negative (Negative); Occult Blood-Urine 10 /ul (Negative); Protein-Dipstick 500 mg/dl (Negative); Specific Gravity, Urine 1.015 (1.002-1.030); Urine Bilirubin Dipstick Negative (Negative); Urine Clarity Clear (Clear); Urine Urobilinogen Normal (Normal)
[2023-03-23 21:28] LABS: Red Blood Cells-Urine 0-5 SEEN /hpf (0-5); Squamous Epithelial Cells - UA 0-5 SEEN /hpf (0-5); White Blood Cells 0-5 SEEN /hpf (0-5)
[2023-03-23 22:00] VITALS: PULSE 113; RESP 21; O2SAT 98
[2023-03-23 22:25] LABS: Lipase 133 U/L (13-75)
--- NOTE | 2023-03-23 22:30 | CT_ITS ---
INDICATION: abd pain EXAMINATION: CT ABDOMEN AND PELVIS WITHOUT CONTRAST - CT Abdomen And Pelvis W/O Contrast Injection TECHNIQUE: Helically acquired images were obtained of the abdomen and pelvis without oral or IV contrast. A radiation dose optimization technique was used for this scan. IV Contrast dosage and agent: None. Oral contrast: None. COMPARISON: CT abdomen and pelvis March 10, 2023. Also compared with chest x-ray March 10, 2023. FINDINGS: LOWER CHEST: Lung bases are clear. Heart is diffusely enlarged. No pericardial effusion. LIVER: Significant decreased density in a mildly enlarged liver. Normal contour. This likely represents hepatic steatosis. No focal mass. GALLBLADDER AND BILIARY TREE: Mildly distended gallbladder with no visible stone or wall thickening. No gallbladder distension or wall edema. No intra- or extrahepatic biliary ductal dilation. PANCREAS: No focal cystic or solid mass. SPLEEN: Normal size without focal cystic or solid mass. Note of a splenule posterior inferior margin of the spleen. ADRENAL GLANDS: No nodules. KIDNEYS, URETERS and BLADDER: Normal renal size and position. No mass. No hydronephrosis. Bladder is unremarkable. PERITONEUM: No ascites or free air. No other fluid collection. BOWEL: Persistent sigmoid colon pericolonic inflammatory changes with diverticuli consistent with diverticulitis. There may be mild edematous wall thickening of the transverse colon as could be seen with colitis. There is significant interval decrease in the intra-abdominal inflammatory changes compared to the prior exam. There is questionable mild wall thickening distal stomach, antral region may represent inflammatory changes. No surrounding mesenteric inflammatory changes. There is no intra-abdominal free fluid or focal fluid collection. No free air. No evidence of obstruction. No appendicitis. LYMPH NODES: No enlarged mesenteric or retroperitoneal lymph nodes. VESSELS: Aorta is non-dilated. REPRODUCTIVE ORGANS: Normal. ABDOMINAL WALL: No discrete abdominal or pelvic wall hernia. BONES: No lytic or blastic abnormality. CT/Abdomen/Pelvis without Cont IMPRESSION: 1. Persistent diverticulitis. 2. Significant interval decrease in previously seen intra-abdominal, primarily retroperitoneal inflammatory changes. Query pancreatitis. 3. Questionable findings for colitis transverse colon. Overall improved compared to prior exam. 4. Questionable findings for distal stomach duodenal wall thickening. Consider gastritis. 5. Hepatomegaly and significant hepatic steatosis. 6. Cardiomegaly. Electronically Signed: Neftali Garza DO at 23:14 EST ,
[2023-03-23] MEDS: Ondansetron 4 MG/2 ML Vial IV (22:53)
[2023-03-23] MEDS: HYDROmorphone 1 MG/ML Syringe IV (22:53)
[2023-03-23] MEDS: 0.9% Normal Saline (500mL Bag) 500 ML 999 ML IV (22:53)
[2023-03-23 23:00] VITALS: PULSE 112; RESP 16; O2SAT 100
[2023-03-24] VITALS: O2SAT 98
--- NOTE | 2023-03-24 01:22 | EX.ED.DYSGE1 ---
HPI History of Present Illness Chief Complaint: Abd Pain Informant: patient and friend Narrative Narrative: Patient is a 28-year-old male with past medical history of bipolar disorder multiple sclerosis end-stage renal disease on dialysis and recent pancreatitis. Patient was admitted to the hospital in early March of this year secondary to a lipase of approximately 2300 and abdominal pain. He was discharged home after a few days he states he has been doing well and undergoing dialysis as directed. He states that today he developed some generalized abdominal discomfort that felt similar nature to his previous pancreatitis which concerned him and therefore he comes in for evaluation. Patient denies any history of gallbladder disorder or alcohol use [facility] Medical History (Updated 03/25/23 @ 01:[address] Rafy Acosta, ) Anemia Bipolar 1 disorder Bleach ingestion Chronic renal failure Chronic renal failure, stage 5 Diastolic heart failure ESRD (end stage renal disease) Essential hypertension Family history of chronic kidney disease Former smoker GERD (gastroesophageal reflux disease) History of echocardiogram History of renal dialysis History of sepsis Hypertension Insomnia Irritable bowel syndrome (IBS) Multiple sclerosis Problem with dialysis access PUD (peptic ulcer disease) Steatosis of liver Tinnitus Vision problems Wears contact lenses Home Medications cholecalciferol (vitamin D3) 1,250 mcg (50,000 unit) capsule 1,250 mcg PO QWEEK supplement #12 caps 05/26/22 [Rx Last Taken 03/08/23] aspirin 81 mg tablet,delayed release 81 mg PO BREAKFAST HEART HEALTH #30 tabs 07/05/22 [Rx Last Taken 03/10/23] minoxidil 2.5 mg tablet 5 mg (2 x 2.5 mg) PO DAILY hair growth #60 tabs 07/05/22 [Rx Last Taken 03/10/23] amlodipine 10 mg tablet 10 mg PO BID BLOOD PRESSURE #180 tabs 07/21/22 [Rx Last Taken 03/10/23] doxazosin 8 mg tablet 8 mg PO QHS BLOOD PRESSURE #90 tabs 07/21/22 [Rx Last Taken 03/09/23] clonidine 0.3 mg/24 hr weekly transdermal patch 1 patch transdermal QWEEK bp #4 ea 08/02/22 [Rx Last Taken 03/07/23] lurasidone 20 mg tablet See Rx Instructions .Route .COMPLEX bipolar #30 tabs 01/18/23 [Rx Last Taken 03/09/23] ondansetron 4 mg disintegrating tablet 4 mg PO Q8H PRN PRN Nausea #30 tabs 02/14/23 [Rx Last Taken Unknown] omeprazole 40 mg capsule,delayed release 40 mg PO DAILY ACID REFLUX #30 caps 02/15/23 [Rx Last Taken 03/10/23] doxepin 10 mg capsule 10 mg PO DAILY depres 02/22/23 [History Last Taken 03/09/23] sevelamer carbonate 800 mg tablet 800 mg PO TID 03/10/23 [History Last Taken 03/10/23] carvedilol 6.25 mg tablet 6.25 mg PO BID #60 tabs 03/14/23 [Rx Last Taken Unknown] multivitamin-iron 9 mg-folic acid 400 mcg-calcium and minerals tablet (High Potency Multivitamin (w-iron)) 1 tab PO BREAKFAST #0 tabs 03/14/23 [Rx Last Taken Unknown] ondansetron 4 mg disintegrating tablet 4 mg PO TID PRN nausea and vomiting #21 tabs 03/24/23 [Rx Last Taken Unknown] oxycodone-acetaminophen 5 mg-325 mg tablet (Percocet) 1 tab PO Q6H PRN pain 3 days #12 tabs 03/24/23 [Rx Last Taken Unknown] Allergy/AdvReac Type Severity Reaction Status Date / Time No Known Allergies Allergy Verified 03/23/23 19:20 Family History Mother Diabetes Hypertension HLD (hyperlipidemia) Anemia Myocardial infarction Heart disease Kidney disease Father Hypertension HLD (hyperlipidemia) Bipolar disorder Diabetes Alcoholism Arthritis Depression Mental disorder Other CVA (cerebral vascular accident) Surgical History Hx of left knee surgery Hx of surgical procedure Hx of vascular surgery S/P arteriovenous (AV) fistula creation Status post insertion of hemodialysis catheter Social History household members: none current occupational status: employed and unemployed 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 [email or web address], 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 Smoking Status: Current every day smoker tobacco type: e-cigarettes Smokeless tobacco user: other alcohol intake: current alcohol intake frequency: a few times a week details: 4 x a week substance use type: does not use do you feel safe at home: Yes ROS ROS ED Constitutional Constitutional ED: Denies chills or fever(s) ENT ENT ED: Denies sore throat Cardiovascular Cardiovascular: Denies chest pain Respiratory/Chest Respiratory/Chest: Denies cough or dyspnea Gastrointestinal Gastrointestinal: Reports abdominal pain and nausea; Denies diarrhea or vomiting Musculoskeletal Musculoskeletal: Denies myalgias Integumentary Denies rash Neurologic Neurologic: Denies headache(s) Hematologic/Lymphatic Hematologic/Lymphatic: Denies easy bleeding or easy bruising EXAM Physical Exam Const Vital Signs: 03/24/23 01:35 Pulse Rate 69 Respiratory Rate 16 Pulse Ox 98 Positive well nourished and well developed General Appearance ED: well developed HEENT HEENT Narrative: Mucous membranes are slightly dry and tacky without secondary changes to suggest infection and no airway edema or compromise Eyes PERRL and EOMs intact bilaterally General Eye ED: Negative for scleral icterus Neck supple Neck Narrative: No nuchal rigidity or meningeal signs noted Resp normal respiratory effort and clear to auscultation bilaterally Cardio regular rate and regular rhythm GI non-distended GI Narrative: Abdomen is soft and nondistended with hypoactive bowel sounds. There is mild pain with palpation in the right upper quadrant and midepigastric region without voluntary guarding or rigidity. No pulsatile mass or fluid wave. Negative Vicente sign. Auscultation: hypoactive bowel sounds Palpation: soft Extremity Extremity Narrative: Patient has a fistula present in the left upper arm with palpable thrill and good bruit Neuro oriented x3, CN's II-XII intact bilaterally and no sensory deficits noted Sensorium / Orientation: alert Motor Exam: strength 5/5 throughout Psych mental status grossly normal Skin no rashes or lesions noted General Skin Exam: Negative for jaundice MDM MDM MDM Narrative Medical decision making narrative: Patient presented to the ER hypertensive but has a past medical history of this. He reported the development of abdominal pain that felt similar nature to his recent bout of pancreatitis. Differential diagnosis is for biliary colic versus acute cholecystitis versus pancreatitis versus common bile duct stone versus intestinal abscess or colitis. Patient blood work and a repeat CT scan were obtained. Labs show anemia but at patient's baseline as well as an elevated creatinine consistent with his history of renal disease on dialysis. However there is no severe electrolyte derangement requiring emergent dialysis. Lipase from March 10 was approximately 2300 and today it is only 133 going against acute pancreatitis. More so CT scan does not show any inflammatory changes around the pancreas. It does show persistent colitis but there is no abscess or obstruction and the inflammatory process is reportedly improved/much less than the previous CT scan. Patient was hydrated and medicated and reported improvement of his pain and therefore at this time is otherwise safe for discharge as overall work-up is negative and there is no recurrent pancreatitis noted. As patient's been on reporting multiple rounds of antibiotics and has had according to the radiology report improvement of the persistent inflammatory diverticulitis I do not feel there is need for further admission or repeat antibiotics at this time History & Record Review Discussion w/independent historian: Patient and Friend Lab Data Attestation: I reviewed the patient's lab results. Labs: Laboratory Results - last 24 hr 03/23/23 03/23/23 19:40 21:04 WBC 8.9 RBC 3.03 L Hgb 9.2 L Hct 29.4 L MCV 97.0 H MCH 30.4 MCHC 31.3 L RDW Std Deviation 64.4 H RDW Coeff of [place] 18.6 H Plt Count 326 MPV 9.3 Immature Gran % (Auto) 0.600 Neut % (Auto) 79.0 H Lymph % (Auto) 10.8 L [place] % (Auto) 7.1 Eos % (Auto) 1.3 Baso % (Auto) 1.2 H Absolute Neuts (auto) 7.1 Absolute Lymphs (auto) 0.96 Nucleated RBC % 0 Sodium 140 Potassium 4.4 Chloride 105 Carbon Dioxide 16.0 L Anion Gap 19 H BUN 24 H Creatinine 6.70 H Estim Creat Clear Calc 15.60 Est GFR (MDRD) Af Amer 13 L Est GFR (MDRD) Non-Af 10 L BUN/Creatinine Ratio 3.6 L Glucose 107 H Calcium 9.4 Total Bilirubin 0.80 AST 62 H ALT 48 Alkaline Phosphatase 263 H Total Protein 9.1 H Albumin 3.4 Globulin 5.7 H Albumin/Globulin Ratio 0.6 L Lipase 133 H Urine Color Yellow Urine Clarity Clear Urine pH 6.0 Ur Specific [place] 1.015 Urine Protein 500 H Urine Glucose (UA) Normal Urine Ketones 5 H Urine Occult Blood 10 H Urine Nitrite Negative Urine Bilirubin Negative Urine Urobilinogen Normal Ur Leukocyte Esterase 25 H Urine RBC 0-5 SEEN Urine WBC 0-5 SEEN Ur Squamous Epith Cells 0-5 SEEN Urine Bacteria 0 SEEN Urine Mucus 0 SEEN Radiography Diagnostic Testing: Clinical Impression(s) from Imaging Studies Abdomen/Pelvis CT 03/23/23 22:30 IMPRESSION: 1. Persistent diverticulitis. 2. Significant interval decrease in previously seen intra-abdominal, primarily retroperitoneal inflammatory changes. Query pancreatitis. 3. Questionable findings for colitis transverse colon. Overall improved compared to prior exam. 4. Questionable findings for distal stomach duodenal wall thickening. Consider gastritis. 5. Hepatomegaly and significant hepatic steatosis. 6. Cardiomegaly. Electronically Signed: Neftali Garza DO at 23:14 EST , Discharge Plan Triage Chief Complaint: Abd Pain ED Provider: Rafy Acosta Dx/Rx/DC Orders Clinical Impression: Abdominal pain, Bipolar 1 disorder, End stage renal disease on dialysis, Multiple sclerosis Instructions: Abdominal Pain Prescriptions: New oxycodone-acetaminophen [Percocet] 5-325 mg tablet 1 tab PO Q6H PRN (Reason: pain) 3 Days Qty: 12 0RF ondansetron 4 mg tablet,disintegrating 4 mg PO TID PRN (Reason: nausea and vomiting) Qty: 21 0RF No Action cholecalciferol (vitamin D3) 1,250 mcg (50,000 unit) capsule 1,250 mcg PO QWEEK Qty: 12 0RF Patient Comments: PT STATES TAKES M,W,F amlodipine 10 mg tablet 10 mg PO BID Qty: 180 3RF doxazosin 8 mg tablet 8 mg PO QHS Qty: 90 3RF ondansetron 4 mg tablet,disintegrating 4 mg PO Q8H PRN PRN (Reason: Nausea) Qty: 30 0RF doxepin 10 mg capsule 10 mg PO DAILY sevelamer carbonate 800 mg tablet 800 mg PO TID Patient Comments: TAKE 1 TABLET BY MOUTH THREE TIMES A DAY WITH MEALS carvedilol 6.25 mg Tablet 6.25 mg PO BID Qty: 60 0RF High Potency Multivit (w-iron) 9 mg iron-400 mcg Tablet 1 tab PO BREAKFAST Qty: 0 0RF minoxidil 2.5 mg tablet 5 mg PO DAILY Qty: 60 2RF aspirin 81 mg tablet,delayed release (DR/EC) 81 mg PO BREAKFAST Qty: 30 2RF clonidine 0.3 mg/24 hr patch weekly 1 patch transdermal QWEEK Qty: 4 12RF Patient Comments: PT GIULIA APPLIES NEW PATCHES ON TUESDAYS lurasidone 20 mg tablet See Rx Instructions .ROUTE .COMPLEX Qty: 30 2RF Dose Instruction: TAKE 1 TABLET BY MOUTH EVERY EVENING WITH FOOD (AT LEAST 350 CALORIES) Rx Instructions: TAKE 1 TABLET BY MOUTH EVERY EVENING WITH FOOD (AT LEAST 350 CALORIES) omeprazole 40 mg capsule,delayed release(DR/EC) 40 mg PO DAILY Qty: 30 5RF Primary Care Provider: Linn Ware Referrals: Linn Ware MD [Primary Care Provider] - Activity Restrictions/Additional Instructions: Your lipase has gone from 2300-133 showing improvement and near resolution of your pancreatitis. Take the prescribed medications as directed as well as your chronic/daily medications as directed by your doctor and return to the ER should you have any further concerns or worsening of symptoms Disposition Disposition: Home, Self Care Discharge Date/Time: 03/24/23 01:36
[2023-03-24 01:35] VITALS: PULSE 69; RESP 16; O2SAT 98
== END 2023-03-24 01:36 | disposition home or self-care (01) ==
PROVIDERS: Emergency Provider Emergency Medicine; PCP Internal Medicine; Visit Provider Emergency Medicine
DX: R10.9 Unspecified abdominal pain (principal); I13.2 Hypertensive heart and chronic kidney disease with heart failure and with stage 5 chronic kidney disease, or end stage renal disease; Z99.2 Dependence on renal dialysis; G35 Multiple sclerosis; I50.32 Chronic diastolic (congestive) heart failure; F31.9 Bipolar disorder, unspecified; N18.6 End stage renal disease; Z79.899 Other long term (current) drug therapy; Z79.82 Long term (current) use of aspirin; K21.9 Gastro-esophageal reflux disease without esophagitis; F17.290 Nicotine dependence, other tobacco product, uncomplicated
CPT/HCPCS: 74176; 80053; 81001; 83690; 85025; 96361; 96374; 96375; 99283; J7040; J2405

== ENCOUNTER 2023-05-03 11:15 | Emergency (ER) | payer MEDICAID, SELFPAY ==
[2023-05-03 11:16] VITALS: BP 202/135; PULSE 252; RESP 18; TEMP 36.5; O2SAT 95; BMI 29.3
--- NOTE | 2023-05-03 11:34 | ED.VIS.CHEST ---
HPI <FREDY Banks - Last Filed: 05/03/23 15:46> History of Present Illness Chief Complaint: Chest Pain Narrative Narrative: 28-year-old male with past medical history of hypertension, ESRD on HD, CHF, bipolar states he woke up at 10 AM due to midsternal and left-sided chest pain worse with taking a deep breath. He had nausea but no vomiting. No diaphoresis. No pain in his jaw or arms. He has high blood pressure and is tachycardic here and he states he took multiple BP meds this morning. He states his normal systolic is around 160s. He states a couple days ago he had vomiting and diarrhea but this resolved. He has no fever, chills or cough. PFS <FREDY Banks - Last Filed: 05/03/23 15:46> [facility] Medical History (Updated 05/03/23 @ 14:41 by FREDY Banks) Anemia Bipolar 1 disorder Bleach ingestion Chronic renal failure Chronic renal failure, stage 5 Diastolic heart failure ESRD (end stage renal disease) Essential hypertension Family history of chronic kidney disease Former smoker GERD (gastroesophageal reflux disease) History of echocardiogram History of renal dialysis History of sepsis Hypertension Insomnia Irritable bowel syndrome (IBS) Multiple sclerosis Problem with dialysis access PUD (peptic ulcer disease) Steatosis of liver Tinnitus Vision problems Wears contact lenses Home Medications cholecalciferol (vitamin D3) 1,250 mcg (50,000 unit) capsule 1,250 mcg PO QWEEK supplement #12 caps 05/26/22 [Rx Last Taken 03/08/23] aspirin 81 mg tablet,delayed release 81 mg PO BREAKFAST HEART HEALTH #30 tabs 07/05/22 [Rx Last Taken 03/10/23] minoxidil 2.5 mg tablet 5 mg (2 x 2.5 mg) PO DAILY hair growth #60 tabs 07/05/22 [Rx Last Taken 03/10/23] amlodipine 10 mg tablet 10 mg PO BID BLOOD PRESSURE #180 tabs 07/21/22 [Rx Last Taken 03/10/23] doxazosin 8 mg tablet 8 mg PO QHS BLOOD PRESSURE #90 tabs 07/21/22 [Rx Last Taken 03/09/23] clonidine 0.3 mg/24 hr weekly transdermal patch 1 patch transdermal QWEEK bp #4 ea 08/02/22 [Rx Last Taken 03/07/23] lurasidone 20 mg tablet See Rx Instructions .Route .COMPLEX bipolar #30 tabs 01/18/23 [Rx Last Taken 03/09/23] ondansetron 4 mg disintegrating tablet 4 mg PO Q8H PRN PRN Nausea #30 tabs 02/14/23 [Rx Last Taken Unknown] omeprazole 40 mg capsule,delayed release 40 mg PO DAILY ACID REFLUX #30 caps 02/15/23 [Rx Last Taken 03/10/23] doxepin 10 mg capsule 10 mg PO DAILY depres 02/22/23 [History Last Taken 03/09/23] sevelamer carbonate 800 mg tablet 800 mg PO TID 03/10/23 [History Last Taken 03/10/23] carvedilol 6.25 mg tablet 6.25 mg PO BID #60 tabs 03/14/23 [Rx Last Taken Unknown] multivitamin-iron 9 mg-folic acid 400 mcg-calcium and minerals tablet (High Potency Multivitamin (w-iron)) 1 tab PO BREAKFAST #0 tabs 03/14/23 [Rx Last Taken Unknown] ondansetron 4 mg disintegrating tablet 4 mg PO TID PRN nausea and vomiting #21 tabs 03/24/23 [Rx Last Taken Unknown] oxycodone-acetaminophen 5 mg-325 mg tablet (Percocet) 1 tab PO Q6H PRN pain 3 days #12 tabs 03/24/23 [Rx Last Taken Unknown] Allergy/AdvReac Type Severity Reaction Status Date / Time No Known Allergies Allergy Verified 05/03/23 11:16 Family History Mother Diabetes Hypertension HLD (hyperlipidemia) Anemia Myocardial infarction Heart disease Kidney disease Father Hypertension HLD (hyperlipidemia) Bipolar disorder Diabetes Alcoholism Arthritis Depression Mental disorder Other CVA (cerebral vascular accident) Surgical History Hx of left knee surgery Hx of surgical procedure Hx of vascular surgery S/P arteriovenous (AV) fistula creation Status post insertion of hemodialysis catheter Social History household members: none current occupational status: employed and unemployed 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 CVS: Positive for chest pain. Negative for palpitations or syncope. Respiratory: Negative for shortness of breath, cough, orthopnea. GI: Negative for abdominal pain, nausea, vomiting, diarrhea, constipation, melena, hematochezia. Neuro: Negative for headache, motor/sensory dysfunction. EXAM <FREDY Banks - Last Filed: 05/03/23 15:46> Physical Exam Narrative Exam Narrative: CONST: Patient sitting in no acute distress. EYES: Normal inspection. NECK: Normal inspection. RESP: No respiratory distress, CTAB. CVS: Rapid but regular rhythm, no murmur, no gallop. ABD: Soft and nontender, no guarding or rebound, nondistended. SKIN: Color normal, no rash, warm, dry, intact. EXTREMITIES: Normal appearance, no pedal edema. NEURO: Oriented x4. PSYCH: Normal affect. Const Vital Signs: 05/03/23 11:16 05/03/23 12:21 05/03/23 13:43 Temperature 97.7 F L Temperature Source Temporal Pulse Rate 252 H 109 H Respiratory Rate 18 17 Respiratory Effort Blood Pressure 202/135 H 200/134 H Blood Pressure Mean 157 156 Pulse Ox 95 96 96 Oxygen Delivery Method Room Air Room Air 05/03/23 13:44 05/03/23 14:27 Temperature Temperature Source Pulse Rate 110 H Respiratory Rate 21 H Respiratory Effort Normal Non-Labored Blood Pressure 192/123 H Blood Pressure Mean 146 Pulse Ox 96 Oxygen Delivery Method <Dr. Damir Metz DO - Last Filed: 05/05/23 12:08> Physical Exam Const Vital Signs: 05/03/23 11:16 05/03/23 12:21 05/03/23 13:43 Temperature 97.7 F L Temperature Source Temporal Pulse Rate 252 H 109 H Respiratory Rate 18 17 Respiratory Effort Blood Pressure 202/135 H 200/134 H Blood Pressure Mean 157 156 Pulse Ox 95 96 96 Oxygen Delivery Method Room Air Room Air 05/03/23 13:44 05/03/23 14:27 Temperature Temperature Source Pulse Rate 110 H Respiratory Rate 21 H Respiratory Effort Normal Non-Labored Blood Pressure 192/123 H Blood Pressure Mean 146 Pulse Ox 96 Oxygen Delivery Method [facility] <FREDY Banks - Last Filed: 05/03/23 15:46> [facility] Narrative Medical decision making narrative: Patient presents with chest pain. He appears well and nontoxic. BP is 202/135. Heart rate is in the 120s and sinus tachycardia on the bedside monitor. I think this was double counting in triage. He is in no distress has no murmurs and clear lung sounds. No lower extremity edema. EKG is sinus tachycardia with no acute ischemic changes. CBC and BMP are at baseline. He has normal potassium and a creatinine 4.76. Troponin is 20. BNP 220. CXR shows no acute process. He was given IV fluids 250 cc and labetalol 10 mg bolus but did not have much change in vitals he was given a 20 mg bolus. He still 192/120, heart rates in the 110s. He states his heart rate is always around the sinus systolic is usually 170. He is on antihypertensives 3 times a day and has missed his afternoon dose. He does not know what medication he takes. Since his second troponin is normal at 23 and his blood pressure is a chronic issue I feel like he can be discharged and go home and take his afternoon medications. We contacted [facility] and they can see him for dialysis this afternoon. He was given a cardiology referral, return precautions discussed, and he was discharged in stable condition. Differential: Hypertensive urgency/emergency, ACS, arrhythmia Lab Data Attestation: I reviewed the patient's lab results. Labs: Laboratory Results - last 24 hr 05/03/23 05/03/23 12:21 15:08 WBC 6.7 RBC 3.59 L Hgb 11.2 L Hct 34.0 L MCV 94.7 H MCH 31.2 MCHC 32.9 RDW Std Deviation 53.3 H RDW Coeff of [place] 15.3 H Plt Count 171 MPV 9.9 Immature Gran % (Auto) 0.300 Neut % (Auto) 71.4 H Lymph % (Auto) 14.8 L [place] % (Auto) 8.6 Eos % (Auto) 3.7 Baso % (Auto) 1.2 H Absolute Neuts (auto) 4.8 Absolute Lymphs (auto) 0.99 Nucleated RBC % 0 Sodium 133 L Potassium 3.8 Chloride 96 L Carbon Dioxide 24.0 Anion Gap 13 BUN 35 H Creatinine 4.76 H Estim Creat Clear Calc 21.95 Est GFR (MDRD) Af Amer 19 L Est GFR (MDRD) Non-Af 15 L BUN/Creatinine Ratio 7.4 L Glucose 83 Calcium 8.3 L Troponin I High Sens 20 23 B-Natriuretic Peptide 220.0 H Radiography Diagnostic Testing: Clinical Impression(s) from Imaging Studies Chest X-Ray 05/03/23 12:20 IMPRESSION: Cardiomegaly. Electronically Signed: Jess Rao MD at 12:54 EST , ED attending interpretation of 1-view chest x-ray shows cardiomegaly, no acute infiltrate, edema, or effusion. EKG Initial EKG: Comments: Sinus tachycardia at 119 bpm, no STEMI <Dr. Damir Metz, DO - Last Filed: 05/05/23 12:08> MDM MDM Narrative Medical decision making narrative: Patient presents with chest pain. He appears well and nontoxic. BP is 202/135. Heart rate is in the 120s and sinus tachycardia on the bedside monitor. I think this was double counting in triage. He is in no distress has no murmurs and clear lung sounds. No lower extremity edema. EKG is sinus tachycardia with no acute ischemic changes. CBC and BMP are at baseline. He has normal potassium and a creatinine 4.76. Troponin is 20. BNP 220. CXR shows no acute process. He was given IV fluids 250 cc and labetalol 10 mg bolus but did not have much change in vitals he was given a 20 mg bolus. He still 192/120, heart rates in the 110s. He states his heart rate is always around the sinus systolic is usually 170. He is on antihypertensives 3 times a day and has missed his afternoon dose. He does not know what medication he takes. Since his second troponin is normal at 23 and his blood pressure is a chronic issue I feel like he can be discharged and go home and take his afternoon medications. We contacted [facility] and they can see him for dialysis this afternoon. He was given a cardiology referral, return precautions discussed, and he was discharged in stable condition. Differential: Hypertensive urgency/emergency, ACS, arrhythmia I, Dr Metz, have reviewed the above progress note and course of action in the ER; and I agree with the above. I have personally seen and evaluated this patient. I have gone over history and physical, and also discussed disposition and treatment plan with the patient. Patient says that his blood pressure is normally systolic 170s. Patient has not taken his afternoon medications. Patient's heart rate is normally in the 100s-1 teens. Patient has not seen his PCP in 6 months, and does not have an appointment with a physician for another 2 months in June. Patient has nobody managing his blood pressure or heart rate medications. When I asked patient who is managing his medications, he stated me. Patient understands he needs a follow-up with his PCP and sash installer. Patient understands the urgency of getting better control of his blood pressure heart rate, especially at his young age. Patient will be discharged to follow-up with dialysis today. Patient has no headache, chest pain, shortness of breath, patient is asymptomatic at discharge. Critical care time 31 minutes exclusive from separate billable procedures that were performed. The following was considered in the determination of critical care but not limited to the level of medical decision making, intensive cardiac and/or respiratory monitoring, frequent vital sign monitoring, evaluation of laboratory studies, evaluation of radiographic studies, oxygen monitoring, and constant monitoring and speaking to family at bedside. Treatment of hypertension urgency, tachycardia. Lab Data Labs: Laboratory Results - last 24 hr 05/03/23 05/03/23 12:21 15:08 WBC 6.7 RBC 3.59 L Hgb 11.2 L Hct 34.0 L MCV 94.7 H MCH 31.2 MCHC 32.9 RDW Std Deviation 53.3 H RDW Coeff of [place] 15.3 H Plt Count 171 MPV 9.9 Immature Gran % (Auto) 0.300 Neut % (Auto) 71.4 H Lymph % (Auto) 14.8 L [place] % (Auto) 8.6 Eos % (Auto) 3.7 Baso % (Auto) 1.2 H Absolute Neuts (auto) 4.8 Absolute Lymphs (auto) 0.99 Nucleated RBC % 0 Sodium 133 L Potassium 3.8 Chloride 96 L Carbon Dioxide 24.0 Anion Gap 13 BUN 35 H Creatinine 4.76 H Estim Creat Clear Calc 21.95 Est GFR (MDRD) Af Amer 19 L Est GFR (MDRD) Non-Af 15 L BUN/Creatinine Ratio 7.4 L Glucose 83 Calcium 8.3 L Troponin I High Sens 20 23 B-Natriuretic Peptide 220.0 H Radiography Diagnostic Testing: Clinical Impression(s) from Imaging Studies Chest X-Ray 05/03/23 12:20 IMPRESSION: Cardiomegaly. Electronically Signed: Jess Rao MD at 12:54 EST , Discharge Plan Triage Chief Complaint: Chest Pain ED Midlevel Provider: Scarlet Hutchins ED Provider: Damir Metz Dx/Rx/DC Orders Clinical Impression: Chronic hypertension, Chest pain Instructions: Blood Pressure Check Steps Prescriptions: No Action cholecalciferol (vitamin D3) 1,250 mcg (50,000 unit) capsule 1,250 mcg PO QWEEK Qty: 12 0RF Patient Comments: PT STATES TAKES M,W,F amlodipine 10 mg tablet 10 mg PO BID Qty: 180 3RF doxazosin 8 mg tablet 8 mg PO QHS Qty: 90 3RF ondansetron 4 mg tablet,disintegrating 4 mg PO Q8H PRN PRN (Reason: Nausea) Qty: 30 0RF doxepin 10 mg capsule 10 mg PO DAILY sevelamer carbonate 800 mg tablet 800 mg PO TID Patient Comments: TAKE 1 TABLET BY MOUTH THREE TIMES A DAY WITH MEALS carvedilol 6.25 mg Tablet 6.25 mg PO BID Qty: 60 0RF High Potency Multivit (w-iron) 9 mg iron-400 mcg Tablet 1 tab PO BREAKFAST Qty: 0 0RF oxycodone-acetaminophen [Percocet] 5-325 mg tablet 1 tab PO Q6H PRN (Reason: pain) 3 Days Qty: 12 0RF ondansetron 4 mg tablet,disintegrating 4 mg PO TID PRN (Reason: nausea and vomiting) Qty: 21 0RF minoxidil 2.5 mg tablet 5 mg PO DAILY Qty: 60 2RF aspirin 81 mg tablet,delayed release (DR/EC) 81 mg PO BREAKFAST Qty: 30 2RF clonidine 0.3 mg/24 hr patch weekly 1 patch transdermal QWEEK Qty: 4 12RF Patient Comments: PT GIULIA APPLIES NEW PATCHES ON TUESDAYS lurasidone 20 mg tablet See Rx Instructions .ROUTE .COMPLEX Qty: 30 2RF Dose Instruction: TAKE 1 TABLET BY MOUTH EVERY EVENING WITH FOOD (AT LEAST 350 CALORIES) Rx Instructions: TAKE 1 TABLET BY MOUTH EVERY EVENING WITH FOOD (AT LEAST 350 CALORIES) omeprazole 40 mg capsule,delayed release(DR/EC) 40 mg PO DAILY Qty: 30 5RF Primary Care Provider: Linn Ware Referrals: Linn Ware MD [Primary Care Provider] - Rashawn Camargo MD [Med Staff - Active Staff] - Activity Restrictions/Additional Instructions: Please follow-up with a sash installer for your history of congestive heart failure and your high blood pressure. Also talk to your service parts driver about managing her blood pressure. Take your afternoon medications when you get home. Disposition Disposition: Home, Self Care Discharge Date/Time: 05/03/23 15:52
--- NOTE | 2023-05-03 12:20 | RAD_ITS ---
INDICATION: chest pain EXAMINATION/TECHNIQUE: X-RAY - XR Chest 1 View COMPARISON: March 10, 2023 FINDINGS: LINES/DEVICES: None. LUNGS: No consolidation, edema or effusion. No pneumothorax. MEDIASTINUM AND CARDIOVASCULAR STRUCTURES: There is cardiomegaly. Central airways and mediastinal contour are unremarkable. BONES AND SOFT TISSUES: Unremarkable. RAD/Chest 1 View (Portable) IMPRESSION: Cardiomegaly. Electronically Signed: Jess aRo MD at 12:54 EST ,
[2023-05-03 12:21] VITALS: O2SAT 96
[2023-05-03] MEDS: Aspirin 81 MG TAB.CHEW 324 MG PO (12:27)
[2023-05-03] MEDS: Labetalol (Prefilled) 20 MG/4 ML 10 MG IV (12:33)
[2023-05-03] MEDS: 0.9% Normal Saline 250 ML IV.SOLN. IV (12:33)
[2023-05-03 12:39] LABS: Absolute Lymphocyte Count 0.99 X10^3/uL (0.83-4.51); Absolute Neutrophil Count 4.8 X10^3/uL (2.0-7.7); Basophil# 0.08 X10^3/uL; Basophil% 1.2 % (0-1); Eosinophil# 0.25 X10^3/uL; Eosinophils% 3.7 % (0-5); Hemoglobin 11.2 g/dL (13.0-16.5); Lymphocyte # 0.99 X10^3/ul (0.83-4.51); Lymphocyte % 14.8 % (19-41); Mean Corp Hgb Conc 32.9 g/dL (32-36); Mean Corpuscular Hgb 31.2 pg (27.0-32.0); Mean Corpuscular Volume 94.7 fL (80-94); Mean Platelet Vol. 9.9 fl (6.2-12.0); Monocyte# 0.58 X10^3/uL; Monocyte% 8.6 % (0-10); NRBC Flagged by Analyzer 0 % (0-5); Neutrophil # 4.79 X10^3/uL (2.7-7.7); Neutrophil % 71.4 % (47-70); Platelet Count 171 K/mm3 (150-450); RBC Distribution Width CV 15.3 % (11.6-14.6); RBC Distribution Width SD 53.3 fl (35.1-43.9); Red Blood Count 3.59 M/mm3 (4.6-6.2); White Blood Count 6.7 K/mm3 (4.4-11.0)
[2023-05-03 12:45] LABS: Anion Gap 13 (5-15); BUN 35 mg/dL (7-18); BUN/Creat Ratio 7.4 RATIO (10-20); Calcium,Total 8.3 mg/dL (8.5-10.1); Chloride 96 mmol/L (98-107); Creatinine, Serum 4.76 mg/dL (0.70-1.30); EST Glomerular Filtration Rate 15 mL/min (>60); Est Glom Filt Rate - Afr Amer 19 mL/min (>60); Estimated Creatinine Clearance 21.95 ml/min; Glucose 83 mg/dL (74-106); Potassium 3.8 mmol/L (3.5-5.1); Sodium Level 133 mmol/L (136-145); Troponin-I HS (w/2H Reflex) 20 pg/mL (3.0-78.0)
[2023-05-03 13:43] VITALS: BP 200/134; PULSE 109; RESP 17; O2SAT 96
[2023-05-03] MEDS: Labetalol (Prefilled) 20 MG/4 ML IV (13:50)
[2023-05-03 14:26] LABS: Reflex Troponin-HS? (from REC) Y
[2023-05-03 14:27] VITALS: BP 192/123; PULSE 110; RESP 21; O2SAT 96
[2023-05-03 15:36] LABS: Troponin-I HS 23 pg/mL (3.0-78.0)
[2023-05-03 15:48] VITALS: BP 202/132; PULSE 110; RESP 20; O2SAT 96
== END 2023-05-03 15:52 | disposition home or self-care (01) ==
PROVIDERS: Physician Assistant; Emergency Provider Emergency Medicine; PCP Internal Medicine; Referring Provider Emergency Medicine; Visit Provider Emergency Medicine
DX: R07.9 Chest pain, unspecified (principal); I13.2 Hypertensive heart and chronic kidney disease with heart failure and with stage 5 chronic kidney disease, or end stage renal disease; Z99.2 Dependence on renal dialysis; F31.9 Bipolar disorder, unspecified; N18.6 End stage renal disease; Z79.82 Long term (current) use of aspirin; Z79.899 Other long term (current) drug therapy; K21.9 Gastro-esophageal reflux disease without esophagitis; F17.290 Nicotine dependence, other tobacco product, uncomplicated
CPT/HCPCS: 71045; 80048; 83880; 84484; 85025; 93005; 99284; J7050; A4216

== ENCOUNTER 2023-05-13 05:38 | Emergency (ER) | payer MEDICAID, SELFPAY ==
[2023-05-13 05:41] VITALS: BP 220/140; PULSE 160; RESP 40; TEMP 36.9; O2SAT 99; BMI 29.5
--- NOTE | 2023-05-13 05:57 | CT_ITS ---
INDICATION: Hallucinations EXAMINATION: CT BRAIN - CT Head or Brain W/O Contrast Injection TECHNIQUE: Multiple axial images were obtained of the head without intravenous contrast. A radiation dose optimization technique was used for this scan. IV Contrast dosage and agent: None. RADIATION DOSAGE (If Supplied By Facility): CTDIvol = ( 44.99 ) mGy, DLP = ( 779.24 ) mGycm COMPARISON: CT head 12/05/2021 FINDINGS: BRAIN: No acute bleed. No edema. Mild decreased attenuation in the periventricular white matter bilaterally, not significantly changed compared to the prior. Ruiz-white matter differentiation is maintained. VENTRICLES AND SULCI: Not dilated. EXTRA-AXIAL: No hemorrhage, fluid collection, or mass. CALVARIUM / SKULL BASE: Unremarkable. FACE/SINUSES: Unremarkable. SOFT TISSUES: Unremarkable. CT/Brain/Head without Contrast IMPRESSION: No acute abnormality. Stable periventricular white matter hypodensities. MRI may be helpful as clinically indicated. Electronically Signed: Ashley Begum MD at 7:57 EST ,
--- NOTE | 2023-05-13 05:57 | EKG12_ITS ---
Test Reason : TACHY Blood Pressure : / mmHG Vent. Rate : 125 BPM Atrial Rate : 125 BPM P-R Int : 132 ms QRS Dur : 090 ms QT Int : 378 ms P-R-T Axes : 041 027 031 degrees QTc Int : 545 ms Sinus tachycardia Cannot rule out Inferior infarct (cited on or before 03-MAY-2023) Abnormal ECG Confirmed by SHABBIR HAYS, SYL ([id number]), book or script editor INA QUINTANA ([id number]) on 05/15/2023 8:38:42 AM Referred By: Confirmed By:SYL SHEA MD
[2023-05-13] MEDS: 0.9% Normal Saline (1000mL) 1,000 ML 999 ML IV (06:14)
[2023-05-13] MEDS: LORazepam 2 MG/ML Syringe IV (06:14)
[2023-05-13 06:20] LABS: Absolute Lymphocyte Count 0.79 X10^3/uL (0.83-4.51); Absolute Neutrophil Count 10.9 X10^3/uL (2.0-7.7); Basophil# 0.07 X10^3/uL; Basophil% 0.5 % (0-1); Eosinophil# 0.22 X10^3/uL; Eosinophils% 1.7 % (0-5); Hematocrit 31.2 % (40-54); Hemoglobin 10.6 g/dL (13.0-16.5); Lymphocyte # 0.79 X10^3/ul (0.83-4.51); Lymphocyte % 6.1 % (19-41); Mean Corpuscular Hgb 31.6 pg (27.0-32.0); Mean Corpuscular Volume 93.1 fL (80-94); Mean Platelet Vol. 10.2 fl (6.2-12.0); Monocyte# 0.94 X10^3/uL; Monocyte% 7.2 % (0-10); NRBC Flagged by Analyzer 0 % (0-5); Neutrophil # 10.94 X10^3/uL (2.7-7.7); Neutrophil % 84.1 % (47-70); Platelet Count 124 K/mm3 (150-450); RBC Distribution Width CV 16.6 % (11.6-14.6); RBC Distribution Width SD 54.6 fl (35.1-43.9); Red Blood Count 3.35 M/mm3 (4.6-6.2)
--- OUTSIDE RECORDS SUMMARY | 2023-05-13 06:25 | XMS RPT_ITS | CCD ---
Author Name Unknown Address [address] [place] [address] Organization [facility] Care Team Providers Care Traction Power Engineer Name Role Phone Ashkan Ward Unavailable Unavailable Corky Royal Unavailable Unavailable Unavailable Primary Care Provider Dona Cristina Primary Care Provider Unavailable Primary Care Provider Dona Cristina Primary Care Provider [phone]( [phone] Medications Completed/Discontinued Medications Medication Drug Class(es) Dates Sig (Normalized) Sig (Original) cyclobenzaprine hydrochloride 10 mg oral tablet (1 source) Muscle Relaxant Start: 06-22-2019 take 1 tablet by mouth every eight hours as needed cyclobenzaprine (FLEXERIL) 10 mg tablet Take 1 tablet by mouth every 8 hours as needed. 10 tablet 0 06/22/2019 Active Problems Active Problems Problem Classification Problem Date Documented Da te Episodic/Chronic External cause codes: Fall (1 source) Accidental fall ; Translations: [Fall (on) (from) other stairs and steps, initial encounter] Unclassified (1 source) Unknown / UNK(Unknown) Onset: 03-16-2017 Past or Other Problems Problem Classification Problem Date Documented Da te Episodic/Chronic Headache, including migraine (1 source) Headache, including migraine Onset: 03-16-2017 Results Test Name Value Interpretation Reference Range Facil ity Encounters Encounter Date Encounter Type Care Provider Facility Start: 07-26-2022 Telephone encounter Rosalie figueroa MD Work Phone: Hematology/Oncology Procedures Date Procedure Procedure Detail Performing Clinician Start: 12-21-2020 Adult depression screening assessment Faby Shrestha APRN.CNP Work Phone: Plan of Treatment Date Care Activity Detail Author Start: 01-06-2023 Influenza vaccination INFLUENZA (Sea son Ended) [facility] Start: 05-08-2022 DEPRESSION ASSESSMENT DEPRESSION ASS ESSMENT [facility] Start: 01-06-2022 Influenza vaccination [facility] Start: 12-21-2021 Adult depression screening assessment DEPRESSION SCREENING [facility] Start: 09-29-2021 ANNUAL PCP TEAM IMPORT COORDINATOR LAINA DISEASE VISIT ANNUAL PCP TEAM CHRONIC DISEASE VISIT [facility] Start: 01-13-2021 COVID-19 VACCINE (3 - Booster for Moderna series) COVID-19 VACCINE (3 - Booster for Moderna series) [facility] Start: 10-08-2020 COVID-19 VACCINE (3 - Booster for Moderna series) COVID-19 VACCINE (3 - Booster for Moderna series) [facility] Start: 08-12-2020 COVID-19 VACCINE (2 - Moderna 2-dose series) COVID-19 VACCINE (2 - Moderna 2-dose series) [facility] Start: 01-07-2020 Influenza vaccination INFLUENZA (#1) [facility] Start: 2012 SHINGRIX VACCINE (1 of 2) SHINGRIX V ACCINE (1 of 2) [facility] Start: 2012 Urine microalbumin profile DTAP,TDAP,TD (1 - Tdap) [facility] Start: 2011 BP CONTROLLED (<130/80) BP CONTROLLE D (<130/80) [facility] Start: 2011 HEPATITIS C SCREENING HEPATITIS C SC CATHERINE [facility] Start: 2011 HIV SCREENING HIV SCREENING [facility] Start: 2005 Adult depression screening assessment DEPRESSION SCREENING [facility] Start: 1999 PNEUMOCOCCAL (1 - PCV) PNEUMOCOCCAL (1 - PCV) [facility] Start: 1994 HEPATITIS A (1 of 2 - Risk 2-dose series) HEPATITIS A (1 of 2 - Risk 2-dose series) [facility] Immunizations Immunization Date Immunization Notes Care Provider Godwin el 08-13-2020 COVID-19 vaccine, fu ll dose (MODERNA) Faby Shrestha APRN.CNP Work Phone: [facility] Work Phone: 07-15-2020 COVID-19 vaccine, fu ll dose (MODERNA) Faby Shrestha APRN.CNP Work Phone: [facility] Work Phone: Payers Date Payer Category Payer Medicaid [facility] [employer] [employer] [facility] [id number] 2022-Present [phone] [address] [place] [address] Medicaid [id number] 2019 Unknown [id number] 2019 Unknown [id number] Unknown [id number] Social History Date Type Detail Facility Tobacco smoking stat [facility] Unknown if ever smoked [facility] Start: 1995 Sex Assigned At Not on file [facility] Start: 11-21-2020 End: 12-21-2020 Exposure to SARS-CoV-2 (event) Not sure [facility] Tobacco smoking stat [facility] Tobacco smoking consumption unknown [facility] Start: 09-08-2020 Tobacco smoking stat [facility] Ex-smoker [facility] Work Phone: Start: 09-08-2020 Tobacco use and exposure Tamiko rose smokeless tobacco user [facility] Work Phone: Start: 10-12-2020 End: 12-21-2020 Alcohol intake Current drinker of alcohol (finding) [facility] Start: 12-21-2020 History SDOH Alcohol Frequency 3 [facility] Start: 12-21-2020 History SDOH Alcohol Std Drinks 2 [facility] Start: 09-08-2020 History SDOH Alcohol Comment 1 1/2 per day [facility] Start: 12-21-2020 History SDOH Social Connections Phone 1 [facility] Start: 12-21-2020 History SDOH Social Connections Living 8 [facility] Start: 12-21-2020 History SDOH Financial 4 [facility] Start: 09-08-2020 Tobacco Comment luca Sanders [facility] Start: 1995 Sex Assigned At Male [facility] History of tobacco use Current smoker [facility] Work Phone: Start: 12-21-2020 Education 17 [facility] Clinical Notes 09-07-2020 to 08-02-2022 Telephone Encounter - Priscilla Kline LPN - 08/02/2022 10:23 AM EDTTelephone Encounter - Angy Redd - 08/01/2022 3:26 PM EDTTelephone Encounter - Angy Redd - 07/28/2022 9:24 AM EDT Note Date & Type Note Facility 08-02-2022 Miscellaneous Notes I called and spoke with Dr. Ellis's office and informed them that we have been unsuccessful in reaching patient to schedule new patient appointment. Priscilla Kline LPN 3rd attempt. Message left for patient to contact office to schedule with Dr. Woo- MINE MOTOR ENGINEER/ANEMIA/REF PROVIDER DR ELLIS*. 2ND attempt. Message left for patient to contact office to schedule with Dr. Woo- MINE MOTOR ENGINEER/ANEMIA/REF PROVIDER DR ELLIS* Summary: NEW PATIENT Received referral from Nurse DX: Anemia REF PROV: MONICA ELLIS 1st attempt: LM When pt returns call please assist in scheduling next MINE MOTOR ENGINEER apt with Once its completed please document in this encounter. Thank you! documented in this encounter [facility] 06-30-2022 Miscellaneous Notes Called and spoke with patient regarding kidney transplant referral, he is currently smoking cigarettes, advised per our program protocol patients cannot use nicotine at all, once he is nicotine free for 30 days to contact our office for an intake, closing referral at this time, provided him with our office phone number, and he verbalized understanding. Angy Norberto documented in this encounter [facility] 08-05-2021 Note [facility] Gina leti Tanner 08-03-2021 Note Occupational Therapy Inpatient Evaluation Medical Diagnosis: R VISUAL FIELD DEFICIT, L SIDED WEAKNESS OCCUPATIONAL PROFILE AND HISTORY Therapy Diagnosis: Rank Code Description 1 H53 Visual disturbances 2 Z74.1 Need for assistance with personal care Demographics: Age: 26Y Gender: Male Primary Language: Albanian Preferred Language: Albanian Referring Service/Team: Medicine Past Medical History: Past Medical History Bipolar disorder Anxiety Depression Hx of suicide attempt Chronic kidney disease (stage III) Hypertension Peptic ulcer disease Tobacco abuse Past Surgical History Left knee surgery OBTAINED FROM MEDICAL CHART History of Present Illness: 08/02/21 Additional Information: Chief Complaint/Present Illness: Blurry vision out of right eye History of Present Illness Patient is a 26-year-old male who initially presented to the [facility] emergency department July 30, 2021, for further evaluation of dark stools and abdominal pain. He was also endorsing blurry vision out of his right eye. Work-up in their emergency department revealed evidence of marked hypertension with a blood pressure of 241/164. Routine labs showed evidence of hyponatremia with a sodium level of 130. Creatinine was elevated at 1.56, but this was consistent with his known stage III chronic kidney disease. Lipase was [facility] PATIENT NAME: MICHAEL HAIDER [address] [facility] [address] MEDICAL REC #: [id number] [place] [address] ADMIT DATE: 08/02/21 SERVICE DATE: 08/03/21 Occupational Therapy Assessment ATTENDING WILLIAN: Massimo Barrera DO elevated at 425. CT scan of the brain showed a chronic appearing hypodensity in the (right greater than left) periatrial periventricular white matter. Patient was admitted for further evaluation and management. IV PPI therapy was started along with IV fluids. Gastroenterology was consulted. Due to concerns for GI bleed upper endoscopy was performed. Findings revealed evidence of esophagitis and gastritis. With regards to his visual field deficit follow-up MRI of the brain with contrast was ordered. Findings showed evidence of a right deep parietal white matter non-enhancing lesion with concern for possible multiple sclerosis. A consult to neurology was placed. High-dose steroid therapy via Solu-Medrol was started and a lumbar puncture was recommended with testing for oligoclonal bands. However, they did believe that a central retinal artery occlusion and central retinal vein occlusion should also be on the differential and thus recommended ophthalmology evaluation as well. Patient has been transferred here to [facility] to accomplish this. OBTAINED FROM MEDICAL CHART Date of Admission: 08/02/2021 3:51:00 PM Rehabilitation Precautions/Restrictions: FALL RISK, R VISUAL FIELD DEFICIT Imaging/Testing Results from Chart: MRI OF THORACIC SPINE: IMPRESSION: No evidence of demyelinating disease within the thoracic spine. Minimal degenerative change. MRI CERVICAL SPINE: IMPRESSION: Unremarkable examination. No evidence of demyelinating disease within the cervical spine. Prior Level of Functioning: Self Care: Patient completed the activities by him/herself, with or without an assistive device, with no assistance from a helper. Functional Cognition: Patient completed the activities by him/herself, with or without an assistive device, with no assistance from a helper. Pt states he was not using an assistive device for ambulation FORM COVERER. He was I w/all self care tasks and homemaking tasks. 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 Home Environment: Patient lives alone. Patient lives in an apartment. Home is single level. Patient is required to manage 36 step(s) within the home, with 1 handrail . First floor full bathroom setup available. Bath is a tub/shower combination. He lives on the 3rd floor of apt building and laundry is on the basement level No stairs to enter the home. There is no ramp available to enter home. [facility] PATIENT NAME: MICHAEL HAIDER [address] MEDICAL REC #: [id number] [place] [address] ADMIT DATE: 08/02/21 SERVICE DATE: 08/03/21 Occupational Therapy Assessment ATTENDING PHY: Massimo Barrera DO Equipment Owned: None. 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 [facility] 12-21-2020 Note HNO ID: [id number] Author: Violet Jimenez APRN.RAIL CAR OPERATOR Service: ? Author Type: Nurse Specialist Type: Progress Notes Filed: 12/22/2020 7:08 AM Note Text: SUBJECTIVE: ANNUAL PCP TEAM CHRONIC DISEASE VISIT Never done BP CONTROLLED (<130/80) Never done HPI Michael Ulloa is a 25 year old male. He has been seen previously in gastroenterology and family medicine. He underwent EGD and colonoscopy for chronic diarrhea and heartburn. He noted breakthrough heartburn if eating late in the day, was taking omeprazole 40 mg daily. Notes indicate EGD showed reactive gastropathy and mild inflammation, negative for H. pylori. Colonoscopy with normal results and negative pathology. He was advised to continue with omeprazole 40 mg daily and take Carafate twice daily, increase if symptoms persisted. Presents today for emergency department follow-up, seen at [facility] December 02, 2020 for chest pain. He reported midsternal chest heaviness started in the morning prior to arrival associate with dyspnea diaphoresis lightheadedness along with nausea. Persisted on arrival. Noted dark stools, had been taking Pepto-Bismol for chronic diarrhea. Reported strong family history of CAD. Current smoker. Exam unremarkable. Chest discomfort different from his usual GERD. Troponins were negative. Creatinine elevated at 1.5. CBC unremarkable. EKG possible anterior changes noted. Blood pressure noted to be elevated. Treated with clonidine. He was started on hydrochlorothiazide 12.5 mg and advised to follow-up with blood pressure check in 1 to 2 weeks. Presents today to follow up. Notes feeling improved. Notes no further chest pain or short of breath. . Has been adhering to DASH diet. Has undergone EGD and colonoscopy 10/2020. HTN: Without report of headache, chest pain, palpitations, dyspnea, peripheral edema, orthopnea, fatigue and PND. Last 14 Encounter BP Readings: Date: BP: 10/08/2020 131/89 10/08/2020 181/120 09/08/2020 148/100 09/07/2020 164/110 08/24/2020 160/100 06/22/2019 180/106 Continues with PPI omeprazole 20 mg BID and carafate, usually BID with relief of symptoms. No report of N/V/D/C/BRBPR/balck/tarry/or abdominal pain. Review of Systems Constitutional: Negative. Respiratory: Negative. Cardiovascular: Negative. Gastrointestinal: Negative. Objective BP 143/98 Pulse 100 Resp 16 Wt 110.2 kg (243 lb) BMI 35.88 kg/m? Physical Exam Vitals and nursing note reviewed. Constitutional: Appearance: Normal appearance. HENT: Head: Normocephalic and atraumatic. Eyes: Conjunctiva/sclera: Conjunctivae normal. Neck: Thyroid: No thyroid mass, thyromegaly or thyroid tenderness. Vascular: No carotid bruit. Cardiovascular: Rate and Rhythm: Normal rate and regular rhythm. Pulses: Carotid pulses are 2+ on the right side and 2+ on the left side. Radial pulses are 2+ on the right side and 2+ on the left side. Heart sounds: Normal heart sounds. Pulmonary: Effort: Pulmonary effort is normal. Breath sounds: Normal breath sounds. Abdominal: General: Bowel sounds are normal. Palpations: Abdomen is soft. Musculoskeletal: Right lower leg: No edema. Left lower leg: No edema. Skin: General: Skin is warm and dry. Neurological: Mental Status: He is alert. ALLERGIES No Known Allergies Omeprazole Magnesium (PRILOSEC OTC) 20 mg tablet, Take 2 tablets by mouth twice daily. 1/2 hr before meal. hydroCHLOROthiazide (HYDRODIURIL, ESIDRIX) 25 mg tablet, Take 1 tablet by mouth once daily. DOSE CHANGE TAKE ONE DAILY traZODone (DESYREL) 50 mg tablet, Take 1 tablet by mouth daily at bedtime. lisinopril (ZESTRIL, PRINIVIL) 20 mg tablet, Take 1 tablet by mouth once daily. sucralfate (CARAFATE) 1 gram tablet, Take 1 tablet by mouth four times daily. Dissolve in water- polyethylene glycol 3350 (MIRALAX, GLYCOLAX) 17 gram/dose powder, Use as directed for Miralax / Gatorade Bowel Prep Kit Bisacodyl (DULCOLAX) 5 mg tab, Use as directed for Miralax / Gatorade Bowel Prep Kit loperamide HCl (IMODIUM A-D) 2 mg tab, Take 1 tablet by mouth as needed. No past medical history on file. Social History Tobacco Use - Smoking status: Former Smoker - Smokeless tobacco: Former User - Tobacco comment: vapes Vaping Use - Vaping Use: current everyday user - Substances: Nicotine, Flavoring - Devices: Pre-filled pod Substance Use Topics - Alcohol use: Yes Comment: 1 1/2 per day - Drug use: Never ASSESSMENT/PLAN: 1. Essential hypertension - ICD9: 401.9, ICD10: I10 (primary diagnosis) - suboptimal control - Increase HCTZ from 12.5 mg daily to 25 mg daily - Encourage dietary sodium restriction/DASH diet - Recommend regular aerobic exercise. - BASIC METABOLIC PNL - HYDROCHLOROTHIAZIDE 25 MG TABLET 2. Elevated serum creatinine - ICD9: 790.99, ICD10: R79.89 noted at [facility], recheck before next visit - BASIC METABOLIC PNL 1 mo recheck BP with Te (more content not included)... [facility] 12-02-2020 Miscellaneous Notes TC to pt. He went to [facility] ER and he is in a room now. Caryn Estevez LPN I see the patient cancelled appt. Can you please call the patient and instruct him to rest for about 20 minutes and take BP. If still elevated then I would recommend an office visit for further evaluation. Thank you. Faby Shrestha APRN.CNP reports patient is taking lisinopril for BP. Patient felt a little lightheaded today, and anxious- is scheduled to work a 12 hour shift today- which may be causing the anxiety. Attempted to check his BP several times with a wrist cuff. Each time reading error (manual states if reads error it's too high). Scheduled same day appt with Director Of Estate, to check BP. documented in this encounter [facility] 11-03-2020 Note HNO ID: [id number] Author: Serena Sorenson APRN.CNP Service: ? Author Type: Nurse Practitioner Type: Progress Notes Filed: 11/03/2020 12:51 PM Note Text: DEPARTMENT OF GASTROENTEROLOGY - FOLLOW UP VISIT- Virtual visit HISTORY OF PRESENT ILLNESS Michael Ulloa is a 25 year old male who presents today for follow up of EGD/Colonoscopy Diarrhea and heartburn. Called patient patient was unable to connect through [employer] d/t connection problems Having 4-5 BM daily since diet change, BM occur mostly in the morning. If patient eats late at night will develop acid reflux or wake up with acid reflux and having break through heartburn. Taking omeprazole daily 40mg daily - PRIOR TEST RESULTS Imaging/Procedures: The patient was seen by for upper endoscopy and colonoscopy on 10/08/20 for symptoms of heartburn and diarrhea. The procedure report has been reviewed and findings as follows: Impression: ? ? ?- Esophagogastric landmarks identified. ?- Normal esophagus. ?- Normal stomach. Biopsied. ?- Normal first portion of the duodenum and second ?portion of the duodenum. Biopsied. Impression: ?- The entire examined colon is normal. Biopsied. ?- The examined portion of the ileum was normal. FINAL DIAGNOSIS 1. Random colon, biopsy (A) - Colonic mucosa with no diagnostic alteration. 2. Duodenum, biopsy (B) - Duodenal mucosa with no diagnostic alteration. 3. Stomach, biopsy (C) - Gastric antral mucosa with reactive gastropathy and focal mild chronic. - Separate small detached fragment of mucosa with foveolar and intestinal type epithelium. See comment. COMMENT 3. This tissue fragment is very small and detached from the larger gastric mucosa. Depending on the location of the biopsy site, it may represent biopsy from pyloric/duodenal junctional mucosa, foveolar metaplasia of duodenal mucosa, or intestinal metaplasia of gastric mucosal. Endoscopic correlation is recommended. There is no evidence of dysplasia. Immunostains for Helicobacter pylori will be reported in an addendum. No past medical history on file. PAST SURGICAL HISTORY Procedure Laterality Date - COLONOSCOPY GEN ANES 10/08/2020 normal - EGD 10/08/2020 Current Outpatient Medications Medication Sig Dispense Refill - sucralfate (CARAFATE) 1 gram tablet Take 1 tablet by mouth four times daily. Dissolve in water- 120 tablet 1 - lisinopril (ZESTRIL, PRINIVIL) 20 mg tablet Take 1 tablet by mouth once daily. 30 tablet 1 - polyethylene glycol 3350 (MIRALAX, GLYCOLAX) 17 gram/dose powder Use as directed for Miralax / Gatorade Bowel Prep Kit 238 g 0 - Bisacodyl (DULCOLAX) 5 mg tab Use as directed for Miralax / Gatorade Bowel Prep Kit 4 tablet 0 - Omeprazole Magnesium (PRILOSEC OTC) 20 mg tablet Take 1 tablet by mouth twice daily. 1/2 hr before meal. - loperamide HCl (IMODIUM A-D) 2 mg tab Take 1 tablet by mouth as needed. - traZODone (DESYREL) 50 mg tablet Take 1 tablet by mouth daily at bedtime. 30 tablet 3 No current facility-administered medications for this visit. ALLERGIES No Known Allergies PHYSICAL EXAMINATION There were no vitals taken for this visit. No vitals or PE since telemedicine Alert and pleasant, No apparent distress. Easy respirations. Able to speak in complete sentences. Good judgement. Appropriate answers. IMPRESSION (K21.00) Gastroesophageal reflux disease with esophagitis without hemorrhage (primary encounter diagnosis) (K58.0) Irritable bowel syndrome with diarrhea PLAN ASSESSMENT/PLAN: 1. Gastroesophageal reflux disease with esophagitis without hemorrhage - ICD9: 530.81, 530.10, ICD10: K21.00 - Discuss EGD and Colonoscopy findings and pathology with patient. Colonoscopy entire colon normal and pathology no diagnostic findings. EGD reactive gastropathy with mild inflammation negative H pylori. Plan to continue omeprazole 40mg daily and start Carafate dissolved in water starting twice daily and increase if symptoms persist. Plan is to follow up as needed (prn). I spent a total of 20 minutes on the date of the service which included preparing to see the patient, completing clinical documentation, obtaining and/or reviewing separately obtained history, performing a medically appropriate examination, counseling and educating the patient/family/caregiver, communicating with other HCPs (not separately reported) and independently interpreting results (not separately reported). Serena Sorenson APRN.CLINICAL INFORMATICS EDUCATOR November 03, 2020 [facility] 10-08-2020 Note HNO ID: [id number] Author: Yadira Leon RN Service: ? Author Type: Registered Nurse Type: Nursing Progress Note Filed: 10/08/2020 10:46 AM Note Text: Physician at bedside. [facility] 10-08-2020 Note HNO ID: [id number] Author: Yadira Leon RN Service: ? Author Type: Registered Nurse Type: Nursing Progress Note Filed: 10/08/2020 10:23 AM Note Text: Pt. States readiness for discharge. Assisted with dressing. [facility] 09-30-2020 Note HNO ID: [id number] Author: Violet Gibbs Service: ? Author Type: ? Type: Progress Notes Filed: 09/30/2020 10:16 PM Note Text: Thank you Scarlet, I will message pt and advise. [facility] 09-29-2020 Note HNO ID: [id number] Author: Scarlet Valenzuela Ma Service: ? Author Type: ? Type: Progress Notes Filed: 09/30/2020 10:16 PM Note Text: Pt is not due for physical as he just had one completed on 08/24/20. [facility] is not accepting new patients at this time. Scalret Valenzuela Ma [facility] 09-29-2020 Note HNO ID: [id number] Author: Violet Gibbs Service: ? Author Type: ? Type: Progress Notes Filed: 09/30/2020 10:16 PM Note Text: Summary: New Physical Request This patient had a web request for a physical with [facility]. Is this ok to schedule? [facility] 09-21-2020 Note HNO ID: [id number] Author: Faby Shrestha APRN.CLINICAL INFORMATICS EDUCATOR Service: ? Author Type: Nurse Practitioner Type: Progress Notes Filed: 09/21/2020 10:20 AM Note Text: This is a 25 year old male who presents today with: No chief complaint on file. HISTORY OF PRESENT ILLNESS: Michael Ulloa is a 25 year old male. No chief complaint on file. Here in the office for 2 week BP check, was started on Lisinopril 08/24/2020, increased dose to 10 mg at last OV 2 weeks ago. Denies any headache, chest pain, SOB, or edema. Has been tolerating the medication well. Liver: Initially patient had elevated LFT's in August, has cut back on alcohol intake and working on lifestyle changes. Lab work was just repeated and LFT's have improved but still significantly elevated and elevated GGT. Refers he had elevated LFT's in the past and had liver US but cannot remember diagnosis. PAST MEDICAL HISTORY: History reviewed. No pertinent past medical history. No past surgical history on file. ALLERGIES Patient has no known allergies. MEDICATIONS Current Outpatient Medications Medication Sig - polyethylene glycol 3350 (MIRALAX, GLYCOLAX) 17 gram/dose powder Use as directed for Miralax / Gatorade Bowel Prep Kit - Bisacodyl (DULCOLAX) 5 mg tab Use as directed for Miralax / Gatorade Bowel Prep Kit - lisinopril (ZESTRIL, PRINIVIL) 10 mg tablet Take 1 tablet by mouth once daily. - Omeprazole Magnesium (PRILOSEC OTC) 20 mg tablet Take 1 tablet by mouth twice daily. 1/2 hr before meal. - loperamide HCl (IMODIUM A-D) 2 mg tab Take 1 tablet by mouth as needed. - traZODone (DESYREL) 50 mg tablet Take 1 tablet by mouth daily at bedtime. - famotidine (PEPCID) 20 mg tablet Take 1 tablet by mouth at bedtime as needed. No current facility-administered medications for this visit. FAMILY HISTORY Problem Relation Age of Onset - Diabetes Mother - Substance Abuse Disorder Father - other (htn) Father Social History Tobacco Use - Smoking status: Former Smoker - Smokeless tobacco: Former User - Tobacco comment: vapes Vaping Use - Vaping Use: current everyday user - Substances: Nicotine, Flavoring - Devices: Pre-filled pod Substance Use Topics - Alcohol use: Yes Comment: 1 1/2 per day - Drug use: Never REVIEW OF SYSTEMS GENERAL: No weight loss, malaise or fevers/chills HEENT: Negative for frequent or significant headaches, No changes in hearing or vision. NECK: Negative for lumps, goiter, pain and significant neck swelling RESPIRATORY: Negative for cough, hemoptysis, wheezing, dyspnea or shortness of breath CARDIOVASCULAR: Negative for chest pain, leg swelling, orthopnea, or palpitations GI: No nausea, vomiting, or diarrhea/constipation. No hematochezia/melena. No heartburn or reflux symptoms. : No history of dysuria, frequency or incontinence MUSCULOSKELETAL: Negative for joint pain or swelling. SKIN: Negative for lesions, rash, and itching ENDOCRINE: Negative for cold or heat intolerance, polyuria, polydipsia and goiter NEURO: No history of headaches, syncope, paralysis, seizures or tremors MOOD: Negative for depression, anxiety, or suicidal ideation. EXAM: There were no vitals taken for this visit. VS: BP: 138/100, P: 88 RR: 18 PHYSICAL EXAM: General Appearance: Well appearing, alert, in no acute distress, well-hydrated, well nourished. Head: Normocephalic, no masses, lesions, tenderness or abnormalities. Eyes: Anicteric sclera. Extraocular movements are intact. Lungs: Lungs clear to auscultation. No wheezing, rhonchi, rales.. Heart: RRR without murmur, gallop, or rubs. No ectopy. Extremities: No deformities, edema, skin discoloration, clubbing or cyanosis. Good capillary refill. ASSESSMENT/PLAN: 1. Essential hypertension - ICD9: 401.9, ICD10: I10 (primary diagnosis) - suboptimal control - Increase lisinopril (Zestril/Prinivil) from 10 to 20 mg. - Recommended regular aerobic exercise. - Recommend home blood pressure monitoring, to bring results in on next visit - Goal of BP <130/80 - LISINOPRIL 20 MG TABLET 2. Elevated liver enzymes - ICD9: 790.5, ICD10: R74.8 - Patient would like to hold off from a liver ultrasound at this time, he would like to still focus on lifestyle changes and have his labs rechecked in about 6 weeks. - CMP (CMP) (FOR REMOTE [facility] USE) - GGT BLD Follow up in 1 month or sooner as needed. Discussed treatment plan and patient voices understanding. Patient's questions answered appropriately. Medications and potential side effects were discussed and patient voices understanding. Faby Shrestha APRN.CLINICAL INFORMATICS EDUCATOR This note was partially generated using [employer] voice recognition system. Note was reviewed for accuracy. There may be minor misspellings or grammar miscues with [employer] voice recognition. [facility] 09-07-2020 Note HNO ID: [id number] Author: Faby Shrestha APRN.CLINICAL INFORMATICS EDUCATOR Service: ? Author Type: Nurse Practitioner Type: Progress Notes Filed: 09/07/2020 9:03 AM Note Text: This is a 25 year old male who presents today with: Patient presents with: Follow Up: 2 weeks BP HISTORY OF PRESENT ILLNESS: Michael Ulloa is a 25 year old male. Patient presents with: Follow Up: 2 weeks BP I saw this patient on 08/24/2020 for wellness exam and started him on Lisinopril. He is here today for 2 week follow up. HTN: Michael Ulloa indicates that he is feeling well and denies any symptoms referable to elevated blood pressure. Specifically denies headache, chest pain, palpitations, dyspnea and peripheral edema. Patient denies any side effects of her medication and is compliant with their regimen. The patient is check BP's away from this office- twice daily. SBP: 225-180 Michael Ulloa gets 3-4 days of regular aerobic exercise. He watches diet for sodium, low fat and low cholesterol Most of the time Heartburn: Symptoms have improved since adding Pepcid in with Prilosec. Has been eating a low carb diet and getting exercise. Last 14 BP Last 14 Encounter BP Readings: Date: BP: 08/24/2020 160/100 06/22/2019 180/106 PAST MEDICAL HISTORY: No past medical history on file. No past surgical history on file. ALLERGIES Patient has no known allergies. MEDICATIONS Current Outpatient Medications Medication Sig - Omeprazole Magnesium (PRILOSEC OTC) 20 mg tablet Take 1 tablet by mouth twice daily. 1/2 hr before meal. - loperamide HCl (IMODIUM A-D) 2 mg tab Take 1 tablet by mouth as needed. - traZODone (DESYREL) 50 mg tablet Take 1 tablet by mouth daily at bedtime. - famotidine (PEPCID) 20 mg tablet Take 1 tablet by mouth at bedtime as needed. - lisinopril (ZESTRIL, PRINIVIL) 5 mg tablet Take 1 tablet by mouth once daily. No current facility-administered medications for this visit. FAMILY HISTORY Problem Relation Age of Onset - Diabetes Mother - Substance Abuse Disorder Father Social History Tobacco Use - Smoking status: Not on file Vaping Use - Vaping Use: current everyday user - Substances: Nicotine Substance Use Topics - Alcohol use: Not on file - Drug use: Not on file REVIEW OF SYSTEMS GENERAL: No weight loss, malaise or fevers/chills HEENT: Negative for frequent or significant headaches, No changes in hearing or vision. NECK: Negative for lumps, goiter, pain and significant neck swelling RESPIRATORY: Negative for cough, hemoptysis, wheezing, dyspnea or shortness of breath CARDIOVASCULAR: Negative for chest pain, leg swelling, orthopnea, or palpitations GI: No nausea, vomiting, or diarrhea/constipation. No hematochezia/melena. No heartburn or reflux symptoms. : No history of dysuria, frequency or incontinence MUSCULOSKELETAL: Negative for joint pain or swelling. SKIN: Negative for lesions, rash, and itching ENDOCRINE: Negative for cold or heat intolerance, polyuria, polydipsia and goiter NEURO: No history of headaches, syncope, paralysis, seizures or tremors MOOD: Negative for depression, anxiety, or suicidal ideation. EXAM: BP 164/110 Pulse 72 Resp 16 PHYSICAL EXAM: General Appearance: Well appearing, alert, in no acute distress, well-hydrated, well nourished. Head: Normocephalic, no masses, lesions, tenderness or abnormalities. Eyes: Anicteric sclera. Extraocular movements are intact. Lungs: Lungs clear to auscultation. No wheezing, rhonchi, rales. Heart: RRR without murmur, gallop, or rubs. No ectopy. Extremities: No deformities, edema, skin discoloration, clubbing or cyanosis. Good capillary refill. Peripheral Pulses: Normal, Capillary refill <2secs, strong peripheral pulses, Pulses palpable. Neurologic: Gait normal. Reflexes normal and symmetric. Sensation grossly intact. ASSESSMENT/PLAN: 1. Essential hypertension - ICD9: 401.9, ICD10: I10 (primary diagnosis) - poor control - Increase lisinopril (Zestril/Prinivil) from 5 mg to 10 mg. - Recommended regular aerobic exercise. - Recommend home blood pressure monitoring, to bring results in on next visit - Goal of BP <130/80 - LISINOPRIL 10 MG TABLET - Follow up in 2 weeks for BP check. 2. Gastroesophageal reflux disease with esophagitis, unspecified whether hemorrhage - ICD9: 530.11, ICD10: K21.00 - Discussed lifestyle modifications including losing weight, limiting caffeine, no meals three hours before sleep and head of bed elevation - Continue treatment with Prilosec 20 mg BID, pepcid at [facility]. Follow up in the office in 2 weeks or sooner as needed. Discussed treatment plan and patient voices understanding. Patient's questions answered appropriately. Medications and potential side effects were discussed and patient voices understanding. Faby Shrestha APRN.CLINICAL INFORMATICS EDUCATOR This note was partially generated using [employer] voice recognition system. Note was reviewed fo (more content not included)... [facility] Summary Purpose Family History No Family History Records FoundNo Family History Records FoundNo Family History Records FoundNo Family History Records FoundNo Family History Records Found Advance Directives Documents on File Type Date Recorded Patient Motor Vehicle Licence Examiner Expl anation Advance Directive(s) 06/22/2019 7:54 PM Documents on File Type Date Recorded Patient Motor Vehicle Licence Examiner Expl anation Advance Directive(s) 10/08/2020 8:51 AM Advance Directive(s) 06/22/2019 7:54 PM History of Present Illness * Tamie Villegas (Piyush) - 07/17/2020 6:36 PM EST Presents to [facility] triage with a fall down steps. He fell at home and has severe low back pain. He is able to take steps however he has to lean on his significant other to be able to walk. I discussed with the patient that we do not have x-ray right now no recommend he be seen in the ER for imaging. Patient is agreeable with plan. documented in this encounter Assessments Diagnosis Fall (on) (from) other stairs and steps, initial encounter- Primary Additional Source Comments (unrecognized sect ion and content) No Status Records FoundNo Status Records FoundNo Status Records FoundNo Status Records FoundNo Status Records Found INFORMATION SOURCE (unrecogn ized section and content) DATE CREATED AUTHOR AUTHOR'S ORGANIZ ATION 06/22/2019 [facility] DATE CREATED AUTHOR AUTHOR'S ORGANIZ ATION 08/09/2021 [facility] DATE CREATED AUTHOR AUTHOR'S ORGANIZ ATION 08/29/2021 [facility] DATE CREATED AUTHOR AUTHOR'S ORGANIZ ATION 07/01/2022 [facility] Source Comments (unrecognize d section and content) In the event this informatio n is protected by the Federal Confidentiality of Alcohol and Drug Abuse Patient Records regulations: The Federal rules restrict any use of the information to criminally investigate or prosecute any alcohol or drug abuse patient.[facility] the event this information is protected by the Federal Confidentiality of Alcohol and Drug Abuse Patient Records regulations: The Federal rules restrict any use of the information to criminally investigate or prosecute any alcohol or drug abuse patient.[facility] the event this information is protected by the Federal Confidentiality of Alcohol and Drug Abuse Patient Records regulations: The Federal rules restrict any use of the information to criminally investigate or prosecute any alcohol or drug abuse patient.[facility] the event this information is protected by the Federal Confidentiality of Alcohol and Drug Abuse Patient Records regulations: The Federal rules restrict any use of the information to criminally investigate or prosecute any alcohol or drug abuse patient.[facility] the event this information is protected by the Federal Confidentiality of Alcohol and Drug Abuse Patient Records regulations: The Federal rules restrict any use of the information to criminally investigate or prosecute any alcohol or drug abuse patient.[facility] Care Teams (unrecognized sec tion and content) Traction Power Engineer Relationship Specialty Start Date End Date [address] Dona [address] [place] [address] PCP - General 08/18/00 Traction Power Engineer Relationship Specialty Start Date End Date [address] Dona [address]ll[address] [place] [address] PCP - General 08/18/00 Reason for Visit (unrecogniz ed section and content) Reason Comments Referral - Kidney Txp Reason Comments New Patient FOR RECORDS PERTAINING TO PATIENTS WHO ARE OR HAVE BEEN ENROLLED IN A CHEMICAL DEPENDENCY/SUBSTANCEABUSE PROGRAM, SOME INFORMATION MAY BE OMITTED. This clinical summary was aggregated from multiple sources. Caution should be exercised in using it in the provision of clinical care. This summary normalizes information from multiple sources, and as a consequence, information in this document may materially change the coding, format and clinical context of patient data. In addition, data may be omitted in some cases. CLINICAL DECISIONS SHOULD BE BASED ON THE PRIMARY CLINICAL RECORDS. [facility]. provides no warranty or guarantee of the accuracy or completeness of information in this document.
--- NOTE | 2023-05-13 06:32 | RAD_ITS ---
INDICATION: Hallucinations EXAMINATION/TECHNIQUE: X-RAY - XR Chest 1 View AP portable. 6:28 AM COMPARISON: 05/03/2023 FINDINGS: LINES/DEVICES: None. LUNGS: No consolidation. No pneumothorax. MEDIASTINUM: Unremarkable. CARDIAC SILHOUETTE: Not enlarged. BONES AND SOFT TISSUES: No acute abnormalities. RAD/Chest 1 View (Portable) IMPRESSION: No evidence of active intrathoracic disease. Electronically Signed: Ashley Begum MD at 6:57 EST ,
[2023-05-13 06:42] VITALS: BP 194/125; PULSE 120; RESP 16; O2SAT 100
[2023-05-13 06:52] LABS: Anion Gap 22 (5-15); BUN 54 mg/dL (7-18); BUN/Creat Ratio 8.6 RATIO (10-20); Calcium,Total 8.8 mg/dL (8.5-10.1); Chloride 98 mmol/L (98-107); Creatinine, Serum 6.28 mg/dL (0.70-1.30); EST Glomerular Filtration Rate 11 mL/min (>60); Est Glom Filt Rate - Afr Amer 14 mL/min (>60); Estimated Creatinine Clearance 16.64 ml/min; Glucose 177 mg/dL (74-106); Magnesium 1.3 mg/dL (1.6-2.6); Potassium 3.5 mmol/L (3.5-5.1); Sodium Level 131 mmol/L (136-145); Thyroid Stim Hormone (TSH) 3.02 uIU/mL (0.358-3.74)
[2023-05-13 07:01] LABS: Acetaminophen (Tylenol) Level < 2.0 ug/mL (10.0-30.0); Alcohol, Blood (Medical)-Serum < 3.0 mg/dL; Salicylate < 1.7 mg/dL (2.8-20.0)
[2023-05-13 07:18] LABS: Phosphorus 3.7 mg/dL (2.5-4.9)
--- NOTE | 2023-05-13 08:38 | NURSING ---
CALLED CRISIS ABOUT PATIENT
[2023-05-13] MEDS: Haloperidol Lactate 5 MG/ML Vial IV (08:50)
[2023-05-13] MEDS: LORazepam 2 MG/ML Syringe 1 MG IV (08:50)
--- NOTE | 2023-05-13 08:51 | EDS_ITS ---
HPI History of Present Illness Chief Complaint: Mental Health Informant: patient and EMS Narrative Narrative: Patient is a 28-year-old male with past medical history of bipolar disorder as well as multiple sclerosis and chronic kidney disease on dialysis. He denies any type of illicit drug or substance use but states that he feels very scared and anxious and states that he is hearing noises and seeing words. He states he tried to contact his friend but could not get a hold of him and secondary to his anxiety and paranoia called EMS to bring him in for evaluation. Patient states that he does not have homicidal suicidal ideation at this time. He does state that his dialysis is Monday and that he missed Fridays dialysis session [facility] Medical History Anemia Bipolar 1 disorder Bleach ingestion Chronic renal failure Chronic renal failure, stage 5 Diastolic heart failure ESRD (end stage renal disease) Essential hypertension Family history of chronic kidney disease Former smoker GERD (gastroesophageal reflux disease) History of echocardiogram History of renal dialysis History of sepsis Hypertension Insomnia Irritable bowel syndrome (IBS) Multiple sclerosis Problem with dialysis access PUD (peptic ulcer disease) Steatosis of liver Tinnitus Vision problems Wears contact lenses Home Medications cholecalciferol (vitamin D3) 1,250 mcg (50,000 unit) capsule 1,250 mcg PO QWEEK supplement #12 caps 05/26/22 [Rx Last Taken 03/08/23] aspirin 81 mg tablet,delayed release 81 mg PO BREAKFAST HEART HEALTH #30 tabs 07/05/22 [Rx Last Taken 03/10/23] minoxidil 2.5 mg tablet 5 mg (2 x 2.5 mg) PO DAILY hair growth #60 tabs 07/05/22 [Rx Last Taken 03/10/23] amlodipine 10 mg tablet 10 mg PO BID BLOOD PRESSURE #180 tabs 07/21/22 [Rx Last Taken 03/10/23] doxazosin 8 mg tablet 8 mg PO QHS BLOOD PRESSURE #90 tabs 07/21/22 [Rx Last Taken 03/09/23] clonidine 0.3 mg/24 hr weekly transdermal patch 1 patch transdermal QWEEK bp #4 ea 08/02/22 [Rx Last Taken 03/07/23] lurasidone 20 mg tablet See Rx Instructions .Route .COMPLEX bipolar #30 tabs 01/18/23 [Rx Last Taken 03/09/23] ondansetron 4 mg disintegrating tablet 4 mg PO Q8H PRN PRN Nausea #30 tabs 02/14/23 [Rx Last Taken Unknown] omeprazole 40 mg capsule,delayed release 40 mg PO DAILY ACID REFLUX #30 caps 02/15/23 [Rx Last Taken 03/10/23] doxepin 10 mg capsule 10 mg PO DAILY depres 02/22/23 [History Last Taken 03/09/23] sevelamer carbonate 800 mg tablet 800 mg PO TID 03/10/23 [History Last Taken ] carvedilol 6.25 mg tablet 6.25 mg PO BID #60 tabs 03/14/23 [Rx Last Taken Unknown] multivitamin-iron 9 mg-folic acid 400 mcg-calcium and minerals tablet (High Potency Multivitamin (w-iron)) 1 tab PO BREAKFAST #0 tabs 03/14/23 [Rx Last Taken Unknown] ondansetron 4 mg disintegrating tablet 4 mg PO TID PRN nausea and vomiting #21 tabs 03/24/23 [Rx Last Taken Unknown] oxycodone-acetaminophen 5 mg-325 mg tablet (Percocet) 1 tab PO Q6H PRN pain 3 days #12 tabs 03/24/23 [Rx Last Taken Unknown] Allergy/AdvReac Type Severity Reaction Status Date / Time No Known Allergies Allergy Verified 05/03/23 11:16 Family History Mother Diabetes Hypertension HLD (hyperlipidemia) Anemia Myocardial infarction Heart disease Kidney disease Father Hypertension HLD (hyperlipidemia) Bipolar disorder Diabetes Alcoholism Arthritis Depression Mental disorder Other CVA (cerebral vascular accident) Surgical History Hx of left knee surgery Hx of surgical procedure Hx of vascular surgery S/P arteriovenous (AV) fistula creation Status post insertion of hemodialysis catheter Social History household members: none current occupational status: employed and unemployed 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[employer], 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 Smoking Status: Current every day smoker tobacco type: e-cigarettes Smokeless tobacco user: other alcohol intake: current alcohol intake frequency: a few times a week details: 4 x a week substance use type: does not use do you feel safe at home: Yes ROS ROS ED Constitutional Constitutional ED: Denies chills or fever(s) Eyes Eyes: Reports other Details: Positive visual hallucinations ENT ENT ED: Denies sore throat Cardiovascular Cardiovascular: Reports racing heartbeat; Denies chest pain Respiratory/Chest Respiratory/Chest: Denies cough or dyspnea Gastrointestinal Gastrointestinal: Denies abdominal pain, diarrhea, nausea or vomiting Musculoskeletal Musculoskeletal: Denies myalgias Integumentary Denies rash Neurologic Neurologic: Denies headache(s) Psychiatric Psychiatric: Reports anxiety; Denies suicidal ideation or suicidal thoughts Hematologic/Lymphatic Hematologic/Lymphatic: Denies easy bleeding or easy bruising EXAM Physical Exam Const Vital Signs: 05/13/23 05:41 05/13/23 06:42 Temperature 98.5 F Temperature Source Temporal Pulse Rate 160 H 120 H Respiratory Rate 40 H 16 Blood Pressure 220/140 H 194/125 H Blood Pressure Mean 166 148 Pulse Ox 99 100 Oxygen Delivery Method Room Air Room Air Positive well nourished and well developed General Appearance ED: well developed HEENT HEENT Narrative: Mucous membranes are dry and tacky No secondary changes in the posterior pharynx to suggest infection No airway edema or compromise Eyes PERRL and EOMs intact bilaterally General Eye ED: Negative for scleral icterus Neck supple Neck Narrative: No nuchal rigidity or meningeal signs Chest Wall palpation of chest normal Resp clear to auscultation bilaterally Resp Narrative: Patient is tachypneic but breath sounds are clear to auscultation Cardio regular rhythm Rate: tachycardic and other Other Details: Tachycardic rate without murmurs rubs or gallops GI normal to inspection, nondistended, normoactive bowel sounds, non-tender, non- distended and no masses GI Narrative: Abdomen is soft nontender and nondistended with normal active bowel sounds no vo luntary guarding or rigidity or pulsatile mass Auscultation: normoactive bowel sounds Palpation: soft Extremity Extremity Narrative: No bony deformity or joint effusion there is trace pitting edema to the bilateral lower extremities Neuro CN's II-XII intact bilaterally and no sensory deficits noted Sensorium / Orientation: alert Motor Exam: strength 5/5 throughout Psych Psych Narrative: Patient has a manic and paranoid affect. He reports hearing noises and seeing words written on the wall and is frightened by any exogenous sound or motion. However he denies any homicidal or suicidal ideation Skin Skin Narrative: Skin turgor is increased but there are no secondary changes to suggest trauma or infection MDM MDM MDM Narrative Medical decision making narrative: Patient arrived to the ER tachycardic and hypertensive however he does have a history of hypertension and has not taken his medications and he is manic and paranoid which could be causing his derangement in vital signs. The patient denies homicidal or suicidal ideation but he has visual and auditory hallucinations and based on his merritt and paranoia. A psychiatric workup will need to be obtained. Labs reveal slight white count of 13 which is most likely stress response and otherwise revealed no clinically significant findings other than his chronically elevated creatinine consistent with his end-stage renal disease on dialysis. His potassium is normal at 3.5 he has no hyperkalemic or dysrhythmia changes on EKG and therefore there is no need for emergent dialysis. Based on the hallucinations a noncontrast CT of the head was obtained which reveals no obvious bleed or tumor or mass as the cause. A chest x-ray was obtained to check for potential infectious process which also revealed no acute findings. The patient was medicated with total of 3 mg of Ativan and 5 mg of Haldol and did have improvement of heart rate and blood pressure and this also helped with his merritt and anxiety. At this time he is not homicidal or suicidal but he does not appear capable of caring for himself secondary to his severe merritt and paranoia and therefore crisis center will be contacted for potential psychiatric placement As the patient has just chronic findings on laboratory studies as well as vital signs I do feel he is medically cleared at this time however psychiatric placement will have to be at a facility that is capable of performing dialysis secondary to history of chronic renal disease Lab Data Attestation: I reviewed the patient's lab results. Labs: Laboratory Results - last 24 hr 05/13/23 05/13/23 05/13/23 06:10 06:17 08:21 WBC 13.0 H RBC 3.35 L Hgb 10.6 L Hct 31.2 L MCV 93.1 MCH 31.6 MCHC 34.0 RDW Std Deviation 54.6 H RDW Coeff of [place] 16.6 H Plt Count 124 L MPV 10.2 Immature Gran % (Auto) 0.400 Neut % (Auto) 84.1 H Lymph % (Auto) 6.1 L [place] % (Auto) 7.2 Eos % (Auto) 1.7 Baso % (Auto) 0.5 Absolute Neuts (auto) 10.9 H Absolute Lymphs (auto) 0.79 L Nucleated RBC % 0 Sodium 131 L Potassium 3.5 Chloride 98 Carbon Dioxide 11.0 L Anion Gap 22 H BUN 54 H Creatinine 6.28 H Estim Creat Clear Calc 16.64 Est GFR (MDRD) Af Amer 14 L Est GFR (MDRD) Non-Af 11 L BUN/Creatinine Ratio 8.6 L Glucose 177 H Calcium 8.8 Phosphorus 3.7 Magnesium 1.3 L TSH 3.02 Salicylates < 1.7 L Acetaminophen < 2.0 L Ur Drug Screen Comment Ethyl Alcohol < 3.0 Radiography Diagnostic Testing: Clinical Impression(s) from Imaging Studies Brain CT 05/13/23 05:57 IMPRESSION: No acute abnormality. Stable periventricular white matter hypodensities. MRI may be helpful as clinically indicated. Electronically Signed: Ashley Begum MD at 7:57 EST , Chest X-Ray 05/13/23 06:32 IMPRESSION: No evidence of active intrathoracic disease. Electronically Signed: Ashley Begum MD at 6:57 EST , Chest x-ray as interpreted by the emergency medicine physician reveals no acute infiltrate or pneumothorax Discharge Plan Triage Chief Complaint: Mental Health ED Provider: Rafy Acosta Dx/Rx/DC Orders Clinical Impression: Acute paranoia, Chronic kidney disease with end stage renal failure on dialysis, Bipolar I disorder with merritt, Hypertension Prescriptions: No Action cholecalciferol (vitamin D3) 1,250 mcg (50,000 unit) capsule 1,250 mcg PO QWEEK Qty: 12 0RF Patient Comments: PT STATES TAKES M,W,F amlodipine 10 mg tablet 10 mg PO BID Qty: 180 3RF doxazosin 8 mg tablet 8 mg PO QHS Qty: 90 3RF ondansetron 4 mg tablet,disintegrating 4 mg PO Q8H PRN PRN (Reason: Nausea) Qty: 30 0RF doxepin 10 mg capsule 10 mg PO DAILY sevelamer carbonate 800 mg tablet 800 mg PO TID Patient Comments: TAKE 1 TABLET BY MOUTH THREE TIMES A DAY WITH MEALS carvedilol 6.25 mg Tablet 6.25 mg PO BID Qty: 60 0RF High Potency Multivit (w-iron) 9 mg iron-400 mcg Tablet 1 tab PO BREAKFAST Qty: 0 0RF oxycodone-acetaminophen [Percocet] 5-325 mg tablet 1 tab PO Q6H PRN (Reason: pain) 3 Days Qty: 12 0RF ondansetron 4 mg tablet,disintegrating 4 mg PO TID PRN (Reason: nausea and vomiting) Qty: 21 0RF minoxidil 2.5 mg tablet 5 mg PO DAILY Qty: 60 2RF aspirin 81 mg tablet,delayed release (DR/EC) 81 mg PO BREAKFAST Qty: 30 2RF clonidine 0.3 mg/24 hr patch weekly 1 patch transdermal QWEEK Qty: 4 12RF Patient Comments: PT GIULIA APPLIES NEW PATCHES ON TUESDAYS lurasidone 20 mg tablet See Rx Instructions .ROUTE .COMPLEX Qty: 30 2RF Dose Instruction: TAKE 1 TABLET BY MOUTH EVERY EVENING WITH FOOD (AT LEAST 350 CALORIES) Rx Instructions: TAKE 1 TABLET BY MOUTH EVERY EVENING WITH FOOD (AT LEAST 350 CALORIES) omeprazole 40 mg capsule,delayed release(DR/EC) 40 mg PO DAILY Qty: 30 5RF Primary Care Provider: Linn Ware Referrals: Linn Ware MD [Primary Care Provider] - Disposition Disposition: Psychiatric Hospital or Unit
--- NOTE | 2023-05-13 08:51 | NURSING ---
FAXED CHART TO [facility]
[2023-05-13 08:54] VITALS: BP 223/144; PULSE 77; RESP 24; O2SAT 98
[2023-05-13 09:16] LABS: Amphetamine Urine VISTA NEGATIVE (<1000 ng/mL); Barbiturate Urine VISTA NEGATIVE (< 200 ng/mL); Benzodiazepine Urine VISTA NEGATIVE (< 200 ng/mL); Cocaine Urine VISTA NEGATIVE (< 300 ng/mL); Ecstacy Urine VISTA NEGATIVE (< 500 ng/mL); Methadone Urine VISTA NEGATIVE (< 300 ng/mL); PCP Urine VISTA NEGATIVE (< 25 ng/mL); THC Urine VISTA NEGATIVE (< 50 ng/mL); Vista UDS pH Range 5
[2023-05-13] MEDS: Carvedilol 6.25 MG Tablet PO (09:39)
[2023-05-13] MEDS: Doxazosin 4 MG Tablet 8 MG PO (09:40)
[2023-05-13] MEDS: amLODIPine 10 MG Tablet PO (09:40)
[2023-05-13 09:55] VITALS: BP 198/102; PULSE 78; RESP 18
== END 2023-05-13 10:02 | disposition home or self-care (01) ==
PROVIDERS: Emergency Provider Emergency Medicine; PCP Internal Medicine; Visit Provider Emergency Medicine
DX: F30.9 Manic episode, unspecified (principal); I13.2 Hypertensive heart and chronic kidney disease with heart failure and with stage 5 chronic kidney disease, or end stage renal disease; Z99.2 Dependence on renal dialysis; F22 Delusional disorders; N18.6 End stage renal disease; Z79.899 Other long term (current) drug therapy; Z79.82 Long term (current) use of aspirin; K21.9 Gastro-esophageal reflux disease without esophagitis; F17.290 Nicotine dependence, other tobacco product, uncomplicated
CPT/HCPCS: 70450; 71045; 80048; 80307; 80320; 80329; 83735; 84100; 84443; 85025; 87811; 93005; 96361; 96374; 96375; 96376; 99283; J7030; A4216; G0480

== ENCOUNTER 2023-05-24 09:58 | Inpatient (IN) | payer MEDICAID, SELFPAY ==
[2023-05-24] VITALS (16 sets, daily range): BP systolic 151–296; BP diastolic 94–132; PULSE 100–145; RESP 14–18; TEMP 36.6–37.1; O2SAT 96–100; BMI 28.0; BMI 27.3; BMI 27.2; BMI 27.1
--- NOTE | 2023-05-24 10:13 | CT_ITS ---
INDICATION: abdominal pain EXAMINATION: CT ABDOMEN AND PELVIS WITHOUT CONTRAST - CT Abdomen And Pelvis W/O Contrast Injection TECHNIQUE: Helically acquired images were obtained of the abdomen and pelvis without oral or IV contrast. A radiation dose optimization technique was used for this scan. IV Contrast dosage and agent: None. Oral contrast: None. RADIATION DOSAGE (If Supplied By Facility): CTDIvol = ( 7.86 ) mGy, DLP = ( 402.65 ) mGycm COMPARISON: 03/23/2023 FINDINGS: LOWER CHEST: Lung bases are clear. No cardiomegaly or pericardial effusion. LIVER: Liver is mildly enlarged and shows severe diffuse hepatic steatosis. No focal mass. GALLBLADDER AND BILIARY TREE: The gallbladder is normally distended. No gallstones. No gallbladder wall thickening or edema. No intra- or extrahepatic biliary ductal dilation. PANCREAS: No focal cystic or solid mass. SPLEEN: Normal size without focal cystic or solid mass. ADRENAL GLANDS: No nodules. KIDNEYS AND URETERS: Normal renal size and position. No hydronephrosis or nephrolithiasis. PERITONEUM: No ascites or free air. No other fluid collection. BOWEL: Small sliding-type hiatal hernia. The imaged distal thoracic esophagus appears patulous and fluid-filled. Left colonic diverticulosis. There is pericolic fat stranding along the proximal sigmoid colon suspicious for recrudescent diverticulitis. Along the inferior aspect of this portion of the sigmoid colon is a fluid and gas containing collection, contiguous with the sigmoid colon which may represent a chronic pericolic collection or a large diverticulum. This portion of the sigmoid colon also appears diffusely thick-walled and a haustral in appearance . Normal appendix. LYMPH NODES: No enlarged mesenteric or retroperitoneal lymph nodes. VESSELS: Aorta is non-dilated. URINARY BLADDER: Unremarkable. REPRODUCTIVE ORGANS: No pelvic masses. ABDOMINAL WALL: No discrete abdominal or pelvic wall hernia. BONES: No acute or suspicious osseous abnormality. CT/Abdomen/Pelvis without Cont IMPRESSION: * Recrudescent sigmoid diverticulitis. There is an associated large diverticulum versus pericolic collection along the inferior aspect of this portion of the sigmoid colon which appears chronically thick-walled and fluid-filled. An underlying mass is not excluded. Recommend colonoscopy after resolution of the patient''s acute symptoms to exclude an underlying mass. * Hepatomegaly and severe diffuse hepatic steatosis. Electronically Signed: Simón Todd MD at 12:45 EST ,
[2023-05-24] MEDS: Ondansetron 4 MG/2 ML Vial IV (10:59)
[2023-05-24] MEDS: Morphine 4 MG/ML Syringe IV (10:59)
[2023-05-24] MEDS: 0.9% Normal Saline (1000mL) 1,000 ML 1000 ML IV (11:04)
[2023-05-24 11:38] LABS: Absolute Lymphocyte Count 0.44 X10^3/uL (0.83-4.51); Absolute Neutrophil Count 8.5 X10^3/uL (2.0-7.7); Basophil% 1.1 % (0-1); Hematocrit 31.7 % (40-54); Hemoglobin 10.5 g/dL (13.0-16.5); Lymphocyte # 0.44 X10^3/ul (0.83-4.51); Lymphocyte % 4.6 % (19-41); Mean Corp Hgb Conc 33.1 g/dL (32-36); Mean Corpuscular Hgb 31.9 pg (27.0-32.0); Mean Corpuscular Volume 96.4 fL (80-94); Monocyte# 0.44 X10^3/uL; Monocyte% 4.6 % (0-10); NRBC Flagged by Analyzer 0 % (0-5); Neutrophil # 8.46 X10^3/uL (2.7-7.7); Neutrophil % 89.4 % (47-70); POSITIVE DIFFERENTIAL YES; Platelet Count 264 K/mm3 (150-450); RBC Distribution Width CV 15.6 % (11.6-14.6); RBC Distribution Width SD 54.8 fl (35.1-43.9); Red Blood Count 3.29 M/mm3 (4.6-6.2); White Blood Count 9.5 K/mm3 (4.4-11.0)
[2023-05-24 11:39] LABS: Differential Indicated SCAN CRITERIA MET
[2023-05-24] MEDS: Pantoprazole Sodium 80 MG in 0.9% Normal Saline (100mL Bag) 80 ML 10 MG CONT INF (11:42)
[2023-05-24 11:52] LABS: ALB/GLOB Ratio 0.6 RATIO (0.9-2.4); AST(SGOT) 109 U/L (15-37); Alanine Aminotransfer ALT/SGPT 75 U/L (16-61); Alkaline Phosphatase 303 U/L (45-117); Anion Gap 25 (5-15); BUN 27 mg/dL (7-18); BUN/Creat Ratio 4.9 RATIO (10-20); Calcium,Total 8.9 mg/dL (8.5-10.1); Chloride 101 mmol/L (98-107); EST Glomerular Filtration Rate 13 mL/min (>60); Est Glom Filt Rate - Afr Amer 16 mL/min (>60); Glucose 90 mg/dL (74-106); Lipase 85 U/L (13-75); Potassium 3.7 mmol/L (3.5-5.1); Sodium Level 142 mmol/L (136-145)
[2023-05-24 12:04] LABS: Toxic Granulation 1+
[2023-05-24 12:08] LABS: Lactic Acid 12.8 mmol/L (0.4-1.9)
[2023-05-24] MEDS: HYDROmorphone 1 MG/ML Syringe IV (12:36)
[2023-05-24] MEDS: Metoclopramide 10 MG/2 ML Vial IV (12:36)
--- NOTE | 2023-05-24 12:53 | EX.ED.DYSGE1 ---
HPI History of Present Illness Chief Complaint: Nausea/Vomiting Detail of Chief Complaint: Nausea and vomiting and abdominal pain Narrative Narrative: Patient presents with nausea and vomiting abdominal pain for the last 4 days. Patient is a dialysis patient and states he missed dialysis 2 days ago because he was feeling too weak. Today he started vomiting blood about 3-4 episodes. Patient describes diffuse abdominal pain. Denies black stool. Patient has not had any abdominal surgeries. Patient does have history of diverticulitis. [facility] Medical History (Updated 05/24/23 @ 15:49 by Jaylyn Heath) Alcohol abuse Anemia Bipolar 1 disorder Bleach ingestion Chronic renal failure Chronic renal failure, stage 5 Congestive heart failure (CHF) Dialysis patient Diastolic heart failure ESRD (end stage renal disease) Essential hypertension Family history of chronic kidney disease Former smoker GERD (gastroesophageal reflux disease) History of echocardiogram History of renal dialysis History of sepsis Hypertension Insomnia Irregular heart beat Irritable bowel syndrome (IBS) Kidney disease Multiple sclerosis Pancreatitis Problem with dialysis access PUD (peptic ulcer disease) Seizures Steatosis of liver Tinnitus Vision problems Wears contact lenses Home Medications aspirin 81 mg tablet,delayed release 81 mg PO BREAKFAST HEART HEALTH #30 tabs 07/05/22 [Rx Last Taken 05/23/23] amlodipine 10 mg tablet 10 mg PO BID BLOOD PRESSURE #180 tabs 07/21/22 [Rx Last Taken 05/23/23] doxazosin 8 mg tablet 8 mg PO QHS BLOOD PRESSURE #90 tabs 07/21/22 [Rx Last Taken 05/23/23] omeprazole 40 mg capsule,delayed release 40 mg PO DAILY ACID REFLUX #30 caps 02/15/23 [Rx Last Taken 05/23/23] doxepin 10 mg capsule 10 mg PO DAILY DEPRESSION 02/22/23 [History Last Taken 05/23/23] sevelamer carbonate 800 mg tablet 800 mg PO TIDCM PHOSPHATE LEVELS 03/10/23 [History Last Taken 05/23/23] carvedilol 6.25 mg tablet 6.25 mg PO BID HEART #60 tabs 03/14/23 [Rx Last Taken 05/23/23] ondansetron 4 mg disintegrating tablet 4 mg PO TID PRN NAUSEA/VOMITING #21 tabs 03/24/23 [Rx Last Taken 05/23/23] cholecalciferol (vitamin D3) 1,250 mcg (50,000 unit) capsule 1,250 mcg PO MOWEFR SUPPLEMENT 05/24/23 [History Last Taken 05/22/23] clonidine 0.3 mg/24 hr weekly transdermal patch 1 patch transdermal TU BLOOD PRESSURE 05/24/23 [History Last Taken 05/16/23] lurasidone 20 mg tablet 20 mg PO QPM BIPOLAR DISORDER 05/24/23 [History Last Taken 05/23/23] minoxidil 2.5 mg tablet 2.5 mg PO BID HAIR GROWTH 05/24/23 [History Last Taken 05/23/23] Allergy/AdvReac Type Severity Reaction Status Date / Time No Known Allergies Allergy Verified 05/24/23 09:59 Family History Mother Diabetes Hypertension HLD (hyperlipidemia) Anemia Myocardial infarction Heart disease Kidney disease Father Hypertension HLD (hyperlipidemia) Bipolar disorder Diabetes Alcoholism Arthritis Depression Mental disorder Other CVA (cerebral vascular accident) Surgical History Hx of left knee surgery Hx of surgical procedure Hx of vascular surgery S/P arteriovenous (AV) fistula creation Status post insertion of hemodialysis catheter Social History household members: none current occupational status: employed and unemployed 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 [employer], 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 Smoking Status: Current every day smoker tobacco type: e-cigarettes Smokeless tobacco user: other alcohol intake: current alcohol intake frequency: a few times a week details: 4 x a week substance use type: does not use do you feel safe at home: Yes ROS ROS ED Review of Systems ROS Unobtainable: other Constitutional Constitutional ED: Reports lethargy; Denies chills, fever(s), sweats or weight loss Eyes Eyes: Denies blurry vision, change in vision or diplopia ENT ENT ED: Denies rhinorrhea or sore throat Cardiovascular Cardiovascular: Denies chest pain, orthopnea or racing heartbeat Respiratory/Chest Respiratory/Chest: Denies cough, dyspnea, dyspnea on exertion, orthopnea or sputum Gastrointestinal Gastrointestinal: Reports abdominal pain, nausea and vomiting; Denies diarrhea Genitourinary Genitourinary ED: Denies dysuria, hematuria or urinary frequency Musculoskeletal Musculoskeletal: Denies arthralgias, back pain, myalgias or neck pain Integumentary Denies abscess, Abrasions or rash Neurologic Neurologic: Denies headache(s) or weakness Psychiatric Psychiatric: Denies anxiety, depression or suicidal thoughts Endocrine Endocrinology: Denies polydipsia, polyphagia or polyuria Hematologic/Lymphatic Hematologic/Lymphatic: Denies easy bleeding, easy bruising or lymphadenopathy Allergic/Immunologic Allergic/Immunologic ED: Denies mouth swelling, tongue swelling or urticaria EXAM Physical Exam Const Vital Signs: 05/24/23 09:59 05/24/23 14:29 Temperature 98 F Temperature Source Temporal Pulse Rate 145 H 122 H Respiratory Rate 18 Blood Pressure 185/128 H 210/131 H Blood Pressure Mean 147 157 Pulse Ox 100 97 Oxygen Delivery Method Room Air Positive well nourished and well developed General Appearance ED: well developed and NAD HEENT Reports TM's clear and moist mucous membranes normocephalic and atraumatic; Negative for trauma or tenderness Tympanic Membrane ED: Yes TM's clear Eyes PERRL and EOMs intact bilaterally General Eye ED: Negative for pale conjunctiva or scleral icterus Neck no lymphadenopathy, supple and no JVD General: Negative for tenderness Chest Wall inspection of chest normal and palpation of chest normal Chest: Negative for tenderness Resp normal respiratory effort and clear to auscultation bilaterally Effort and Inspection: Negative for respiratory distress or pain with movement Auscultation: Negative for rhonchi, wheezes or diminished lung sounds Cardio regular rhythm, S1 normal heart sound, S2 normal heart sound and no murmurs; Negative for regular rate Rate: tachycardic Peripheral Pulses: pulses 2+ throughout GI normal to inspection, nondistended, normoactive bowel sounds, soft to palpation, non-distended and no masses GI Narrative: Diffuse tenderness to palpation. There is guarding. There is no rebound, rigidity, or peritoneal signs. Back/Spine no CVA tenderness and no thoracic nor lumbar tenderness Extremity normal to inspection General Extremety ED: Negative for edema General Extremity: Negative for edema Neuro oriented x3, CN's II-XII intact bilaterally, no sensory deficits noted and gait normal Sensorium / Orientation: awake, alert, oriented to person, oriented to place and oriented to time Motor Exam: strength 5/5 throughout and strength abnormal Psych mental status grossly normal Skin no rashes or lesions noted and no wounds MDM MDM MDM Narrative Medical decision making narrative: Patient presents with abdominal pain and vomiting and missed dialysis 2 days ago. He is vomiting blood. IV line established in his neck via EJ by myself as he was a difficult IV stick. He was given normal saline as well as Dilaudid and Zofran. CBC with differential obtained showed a white count of 9.5 with hemoglobin 10.5 and platelet count of 264. Chemistries showed sodium 142 with potassium of 3.7 and chloride of 101. CO2 was 16. BUN was 27 and creatinine 5.5. Lactate was elevated at 12.8. LFTs showed an elevated AST of 109 as well as ALT of 75 and alkaline phosphatase of 303. Lipase was slightly elevated 85. CT scan of the abdomen pelvis showed rectal distant diverticulitis. They could not rule out a mass in the left lower quadrant. Patient continues to complain of pain was medicated with morphine and Reglan. I did give patient Protonix IV as well. Case will be discussed with GI as well as hospitalist to evaluate patient for admission. Lab Data Attestation: I reviewed the patient's lab results. Labs: Laboratory Results - last 24 hr 05/24/23 05/24/23 05/24/23 10:30 12:04 14:01 WBC 9.5 RBC 3.29 L Hgb 10.5 L Hct 31.7 L MCV 96.4 H MCH 31.9 MCHC 33.1 RDW Std Deviation 54.8 H RDW Coeff of [place] 15.6 H Plt Count 264 MPV 10.0 Immature Gran % (Auto) 0.300 Neut % (Auto) 89.4 H Lymph % (Auto) 4.6 L [place] % (Auto) 4.6 Eos % (Auto) 0.0 Baso % (Auto) 1.1 H Absolute Neuts (auto) 8.5 H Absolute Lymphs (auto) 0.44 L Nucleated RBC % 0 Toxic Granulation 1+ Sodium 142 Potassium 3.7 Chloride 101 Carbon Dioxide 16.0 L Anion Gap 25 H BUN 27 H Creatinine 5.50 H Estim Creat Clear Calc 20.70 Est GFR (MDRD) Af Amer 16 L Est GFR (MDRD) Non-Af 13 L BUN/Creatinine Ratio 4.9 L Glucose 90 Lactic Acid 12.8 H* 2.5 H* Calcium 8.9 Total Bilirubin 0.60 AST 109 H ALT 75 H Alkaline Phosphatase 303 H Total Protein 8.0 Albumin 3.0 L Globulin 5.0 H Albumin/Globulin Ratio 0.6 L Lipase 85 H Blood Type Cancelled O POSITIVE Antibody Screen Cancelled NEGATIVE Radiography Diagnostic Testing: Clinical Impression(s) from Imaging Studies Abdomen/Pelvis CT 05/24/23 10:13 IMPRESSION: * Recrudescent sigmoid diverticulitis. There is an associated large diverticulum versus pericolic collection along the inferior aspect of this portion of the sigmoid colon which appears chronically thick-walled and fluid-filled. An underlying mass is not excluded. Recommend colonoscopy after resolution of the patient''s acute symptoms to exclude an underlying mass. * Hepatomegaly and severe diffuse hepatic steatosis. Electronically Signed: Simón Todd MD at 12:45 EST , EKG Initial EKG: Attestation: I personally reviewed and interpreted this EKG as follows: Comments: Sinus tachycardia with rate of [address] changes Critical Care Time Critical care time (excluding procedures): 30-74 minutes, Including time spent:, Discussing w/Patient &/or Family/Gasoline Attendant, Discussing w/Consultants, Arranging Admission or Transfer, Performing Direct Patient Care at Bedside and - (30 minutes) Discharge Plan Dx/Rx/DC Orders Clinical Impression: Diverticulitis, Hematemesis, Chronic renal failure, Abdominal pain, Dehydration, Acidosis, lactic Disposition Disposition: [facility] Discharge Date/Time: 05/24/23 15:22 Capacity Legal Volunteer Coordinator Reflex Medical hold order details:: IF a medical hold is selected below, a suggested order for a MEDICAL HOLD will reflex upon signing the document. Next of kin: [place] law dictates a PRIORITY LIST for identifying legal decision-maker/legal next of kin in the following order (LNOK): 1st: The patient?s legal guardian, if any 2nd: The patient's spouse (if status is questionable, consult Risk Management) 3rd: The patient?s adult child(ellen) (majority, if multiple children) 4th: The patient?s parents 5th: The patient?s adult siblings (majority, if multiple children siblings)
--- NOTE | 2023-05-24 12:55 | EKG12_ITS ---
Test Reason : N/V Blood Pressure : / mmHG Vent. Rate : 124 BPM Atrial Rate : 124 BPM P-R Int : 122 ms QRS Dur : 084 ms QT Int : 356 ms P-R-T Axes : 049 036 036 degrees QTc Int : 511 ms Sinus tachycardia Nonspecific ST abnormality Abnormal ECG Confirmed by SHABBIR HAYS, SYL ([id number]), legal editor JARAD ESTRADA ([id number]) on 05/26/2023 7:59:33 AM Referred By: Confirmed By:SYL SHEA MD
--- NOTE | 2023-05-24 13:29 | ED.RN ---
Informed Dr. Coffey about the lack of multiple IV sites for antibiotics and continuous protonix drip, Dr. Orona said to stop the protonix drip so we could have the antibiotics.
[2023-05-24] MEDS: Ciprofloxacin 400 MG/200 ML BAG 200 MG IV (13:45)
--- OUTSIDE RECORDS SUMMARY | 2023-05-24 14:47 | XMS RPT_ITS | CCD ---
Author Name Unknown Address [address] [place] [address] Organization [facility] Care Team Providers Care Director Of Early Childhood Name Role Phone Ashkan Ward Unavailable Unavailable Corky Royal Unavailable Unavailable Unavailable Primary Care Provider Dona Cristina Primary Care Provider [phone]( [phone] Unavailable Primary Care Provider Dona Cristina Primary Care Provider [phone]( [phone] Medications Completed/Discontinued Medications Medication Drug Class(es) Dates [...] vaccination INFLUENZA (Sea son Ended) [facility] Start: 05-08-2022 DEPRESSION ASSESSMENT DEPRESSION ASS ESSMENT [facility] Start: 01-06-2022 Influenza vaccination [facility] Start: 12-21-2021 Adult depression screening assessment DEPRESSION SCREENING [facility] Start: 09-29-2021 ANNUAL PCP TEAM PAINTING TECHNICIAN LAINA DISEASE VISIT ANNUAL PCP TEAM CHRONIC DISEASE VISIT [facility] Start: 01-13-2021 COVID-19 VACCINE (3 - Booster for Moderna series) COVID-19 VACCINE (3 - Booster for Moderna series) [facility] Start: 10-08-2020 COVID-19 VACCINE (3 - Booster for Moderna series) COVID-19 VACCINE (3 - Booster for Moderna series) [facility] Start: 08-12-2020 COVID-19 VACCINE (2 - Moderna 2-dose series) COVID-19 VACCINE (2 - Moderna 2-dose series) [facility] Start: 01-07-2020 Influenza vaccination INFLUENZA (#1) [facility] Start: 2012 SHINGRIX VACCINE (1 of 2) SHINGRIX V ACCINE (1 of 2) [facility] Start: 2012 Urine microalbumin profile DTAP,TDAP,TD (1 - Tdap) [facility] Start: 2011 BP CONTROLLED (<130/80) BP CONTROLLE D (<130/80) [facility] Start: 2011 HEPATITIS C SCREENING HEPATITIS C SC ACTHERINE [facility] Start: 2011 HIV SCREENING HIV SCREENING [facility] Start: 2005 Adult depression screening assessment DEPRESSION SCREENING [facility] Start: 1999 PNEUMOCOCCAL (1 - PCV) PNEUMOCOCCAL (1 - PCV) [facility] Start: 1994 HEPATITIS A (1 of 2 - Risk 2-dose series) HEPATITIS A (1 of 2 - Risk 2-dose series) [facility] Immunizations Immunization Date Immunization Notes Care Provider Godwin el 08-13-2020 COVID-19 vaccine, fu ll dose (MODERNA) Faby Shrestha APRN.CNP Work Phone: [facility] Work Phone: 07-15-2020 COVID-19 vaccine, fu ll dose (MODERNA) Faby Shrestha APRN.CNP Work Phone: [facility] Work Phone: Payers Date Payer Category Payer Medicaid [facility] [employer] [facility] [employer] [facility] [id number] 2022-Present [phone] [address] [place] [address] Medicaid [id number] 2019 Unknown [id number] 2019 Unknown [id number] Unknown [id number] Social History Date Type Detail Facility Tobacco smoking stat [facility] Unknown if ever smoked [facility] Start: 1995 Sex Assigned At Not on file [facility] Start: 11-21-2020 End: 12-21-2020 Exposure to SARS-CoV-2 (event) Not sure [facility] Tobacco smoking stat [facility] Tobacco smoking consumption unknown [facility] Start: 09-08-2020 Tobacco smoking stat [facility] Ex-smoker [facility] Work Phone: Start: 09-08-2020 Tobacco use and exposure Tamiko rose smokeless tobacco user [facility] Work Phone: Start: 10-12-2020 End: 12-21-2020 Alcohol intake Current drinker of alcohol (finding) [facility] Start: 12-21-2020 History SDOH Alcohol Frequency 3 [facility] Start: 12-21-2020 History SDOH Alcohol Std Drinks 2 [facility] Start: 09-08-2020 History SDOH Alcohol Comment 1 1/2 per day [facility] Start: 12-21-2020 History SDOH Social Connections Phone 1 [facility] Start: 12-21-2020 History SDOH Social Connections Living 8 [facility] Start: 12-21-2020 History SDOH Financial 4 [facility] Start: 09-08-2020 Tobacco Comment luca Sanders [facility] Start: 1995 Sex Assigned At Male [facility] History of tobacco use Current smoker [facility] Work Phone: Start: 12-21-2020 Education 17 [facility] Clinical Notes 09-07-2020 to 08-02-2022 Telephone [...] contact office to schedule with Dr. Woo- COMMERCIAL ESCROW OFFICER/ANEMIA/REF PROVIDER DR ELLIS*. 2ND attempt. Message left for patient to contact office to schedule with Dr. Woo- COMMERCIAL ESCROW OFFICER/ANEMIA/REF PROVIDER DR ELLIS* Summary: NEW PATIENT Received referral from Nurse DX: Anemia REF PROV: MONICA ELLIS 1st attempt: LM When pt returns call please assist in scheduling next COMMERCIAL ESCROW OFFICER apt with Once its completed please document in this encounter. Thank you! documented in this encounter [facility] 06-30-2022 Miscellaneous Notes Called and spoke [...] Norberto documented in this encounter [facility] 08-05-2021 Note [facility] Gina leti Tanner 08-03-2021 Note Occupational Therapy Inpatient Evaluation Medical Diagnosis: R VISUAL FIELD DEFICIT, L SIDED WEAKNESS OCCUPATIONAL PROFILE AND HISTORY Therapy Diagnosis: Rank Code Description 1 H53 Visual disturbances 2 Z74.1 Need for assistance with personal care Demographics: Age: 26Y Gender: Male Primary Language: Ukrainian Preferred Language: Ukrainian Referring Service/Team: Medicine Past Medical History: Past [...] 26-year-old male who initially presented to the [facility] emergency department July 30, 2021, for further [...] stage III chronic kidney disease. Lipase was [facility] PATIENT NAME: MICHAEL HAIDER [address] [place] MEDICAL REC #: [id number] [place] [address] ADMIT DATE: 08/02/21 SERVICE DATE: 08/03/21 Occupational [...] well. Patient has been transferred here to [facility] to accomplish this. 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 He was I w/all self care tasks and homemaking tasks. 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 [facility] PATIENT NAME: MICHAEL HAIDER [address] [place] MEDICAL REC #: [id number] [place] [address] ADMIT DATE: 08/02/21 SERVICE DATE: 08/03/21 Occupational Therapy Assessment ATTENDING PHY: Massimo Barrera DO Equipment Owned: None. 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 [facility] 12-21-2020 Note HNO ID: [id number] Author: Violet Jimenez APRN.SNOW MAKER Service: ? Author Type: Nurse Specialist Type: [...] today for emergency department follow-up, seen at [facility] December 02, 2020 for chest pain. He [...] - ICD9: 790.99, ICD10: R79.89 noted at [facility], recheck before next visit - BASIC METABOLIC PNL 1 mo recheck BP with Te (more content not included)... [facility] 12-02-2020 Miscellaneous Notes TC to pt. He went to [facility] ER and he is in a room [...] too high). Scheduled same day appt with Telecom Analyst, to check BP. documented in this encounter [facility] 11-03-2020 Note HNO ID: [id number] Author: Serena Sorenson APRN.CNP Service: ? Author Type: Nurse Practitioner Type: Progress Notes Filed: 11/03/2020 12:51 PM Note Text: DEPARTMENT OF GASTROENTEROLOGY - FOLLOW UP VISIT- Virtual visit HISTORY OF PRESENT ILLNESS Michael Ulloa is a 25 year old male who presents today for follow up of EGD/Colonoscopy Diarrhea and heartburn. Called patient patient was unable to connect through [employer] d/t connection problems Having 4-5 BM daily [...] interpreting results (not separately reported). Serena Sorenson APRN.DEPOT AGENT November 03, 2020 [facility] 10-08-2020 Note HNO ID: [id number] Author: Yadira Leon RN Service: ? Author Type: Registered Nurse Type: Nursing Progress Note Filed: 10/08/2020 10:46 AM Note Text: Physician at bedside. [facility] 10-08-2020 Note HNO ID: [id number] Author: Yadira Leon RN Service: ? Author Type: Registered Nurse Type: Nursing Progress Note Filed: 10/08/2020 10:23 AM Note Text: Pt. States readiness for discharge. Assisted with dressing. [facility] 09-30-2020 Note HNO ID: [id number] Author: Violet Gibbs Service: ? Author Type: ? Type: Progress Notes Filed: 09/30/2020 10:16 PM Note Text: Thank you Scarlet, I will message pt and advise. [facility] 09-29-2020 Note HNO ID: [id number] Author: Scarlet Valenzuela Ma Service: ? Author Type: ? Type: Progress Notes Filed: 09/30/2020 10:16 PM Note Text: Pt is not due for physical as he just had one completed on 08/24/20. [facility] is not accepting new patients at this time. Scarlet Valenzuela Ma [facility] 09-29-2020 Note HNO ID: [id number] Author: Violet Gibbs Service: ? Author Type: ? Type: Progress Notes Filed: 09/30/2020 10:16 PM Note Text: Summary: New Physical Request This patient had a web request for a physical with [facility]. Is this ok to schedule? [facility] 09-21-2020 Note HNO ID: [id number] Author: Faby Shrestha APRN.DEPOT AGENT Service: ? Author Type: Nurse Practitioner Type: [...] 6 weeks. - CMP (CMP) (FOR REMOTE [facility] USE) - GGT BLD Follow up in 1 month or sooner as needed. Discussed treatment plan and patient voices understanding. Patient's questions answered appropriately. Medications and potential side effects were discussed and patient voices understanding. Faby Shrestha APRN.DEPOT AGENT This note was partially generated using Gingr voice recognition system. Note was reviewed for accuracy. There may be minor misspellings or grammar miscues with Gingr voice recognition. [facility] 09-07-2020 Note HNO ID: [id number] Author: Faby Shrestha APRN.DEPOT AGENT Service: ? Author Type: Nurse Practitioner Type: [...] discussed and patient voices understanding. Faby Shrestha APRN.DEPOT AGENT This note was partially generated using Gingr voice recognition system. Note was reviewed fo (more content not included)... 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 He [...] DATE CREATED AUTHOR AUTHOR'S ORGANIZ ATION 06/22/2019 [facility] DATE CREATED AUTHOR AUTHOR'S ORGANIZ ATION 08/09/2021 [facility] DATE CREATED AUTHOR AUTHOR'S ORGANIZ ATION 08/29/2021 [facility] DATE CREATED AUTHOR AUTHOR'S ORGANIZ ATION 07/01/2022 [facility] Source Comments (unrecognize d section and content) In the event this informatio n is protected by the Federal Confidentiality of Alcohol and Drug Abuse Patient Records regulations: The Federal rules restrict any use of the information to criminally investigate or prosecute any alcohol or drug abuse patient.[facility] the event this information is protected by the Federal Confidentiality of Alcohol and Drug Abuse Patient Records regulations: The Federal rules restrict any use of the information to criminally investigate or prosecute any alcohol or drug abuse patient.[facility] the event this information is protected by the Federal Confidentiality of Alcohol and Drug Abuse Patient Records regulations: The Federal rules restrict any use of the information to criminally investigate or prosecute any alcohol or drug abuse patient.[facility] the event this information is protected by the Federal Confidentiality of Alcohol and Drug Abuse Patient Records regulations: The Federal rules restrict any use of the information to criminally investigate or prosecute any alcohol or drug abuse patient.[facility] the event this information is protected by the Federal Confidentiality of Alcohol and Drug Abuse Patient Records regulations: The Federal rules restrict any use of the information to criminally investigate or prosecute any alcohol or drug abuse patient.[facility] Care Teams (unrecognized sec tion and content) Director Of Early Childhood Relationship Specialty Start Date End Date Catalino Dona Ulloa [address] [place] [address] PCP - General 08/18/00 Director Of Early Childhood Relationship Specialty Start Date End Date Catalino Dona Ulloa [address] [place] [address] PCP - General 08/18/00 Reason for Visit [...] BE BASED ON THE PRIMARY CLINICAL RECORDS. [facility]. provides no warranty or guarantee of the accuracy or completeness of information in this document.
--- NOTE | 2023-05-24 14:48 | HP.PCM.HOS_ITS ---
HPI - General General Date of Admission: 05/24/23 Date of Service: 05/24/23 Chief Complaint: Intractable nausea and vomiting HPI Narrative EDU WILCOX, is a 28 M who presented to the emergency department [facility] 05/24/2023 due to intractable nausea and vomiting. The patient has had central abdominal pain predominantly in the right lower quadrant, nausea and vomiting that has been persistent since Monday. His p.o. intake has been extremely poor and he missed dialysis on Monday due to feeling so poorly. Since he is still having issues he decided to come to the emergency department today. He has had no concomitant fever or chills. He states his bowels have been normal and denies any diarrhea or constipation. Today he decided to come the emergency department when he had hematemesis that had developed. Patient reports there was quite a bit of blood in his vomitus earlier today. He still is having significant nausea despite being given Zofran x 2 in the emergency department. He states his stools have been normal and have not been black or tarry. He does have a history of diverticulitis. Vital signs on presentation show a temperature of 98, heart rate has been anywhere between 122 between 145, blood pressure is 185/128 and patient has not taken his antihypertensives due to his nausea and vomiting, respiratory was 18 oxygen saturation 100% room air. CBC shows no white count and a chronic stable anemia however he does have a pretty significant left shift with an 89.4% neutrophilia. His chemistry panel shows a serum bicarb of 16 and anion gap of 25 and a BUN of 27 with a creatinine of 5.5 likely due to his lactic acidosis and uremia. He has not been dialyzed since last Monday. His initial serum lactate was 12.5 with repeat at 2.5 after IV fluids. He has chronic transaminase elevation which is stable. EKG shows sinus tachycardia with no ST- T wave changes concerning for acute ischemia. A CT of his abdomen pelvis was done without contrast due to his abdominal pain and demonstrated recurrent sigmoid diverticulitis with an associated large diverticulum versus pericolic collection in the inferior aspect of the portion of the sigmoid colon which appears to be chronically thick walled and fluid-filled. Underlying mass cannot be excluded and a colonoscopy was recommended. He was also noted to have hepatomegaly with severe diffuse hepatic steatosis. In the emergency department he was given IV fluids, antiemetics, and started on Cipro and Flagyl. PFSH Medical History Anemia Bipolar 1 disorder Bleach ingestion Chronic renal failure Chronic renal failure, stage 5 Diastolic heart failure ESRD (end stage renal disease) Essential hypertension Family history of chronic kidney disease Former smoker GERD (gastroesophageal reflux disease) History of echocardiogram History of renal dialysis History of sepsis Hypertension Insomnia Irritable bowel syndrome (IBS) Multiple sclerosis Problem with dialysis access PUD (peptic ulcer disease) Steatosis of liver Tinnitus Vision problems Wears contact lenses Home Medications aspirin 81 mg tablet,delayed release 81 mg PO BREAKFAST HEART HEALTH #30 tabs 07/05/22 [Rx Last Taken 05/23/23] amlodipine 10 mg tablet 10 mg PO BID BLOOD PRESSURE #180 tabs 07/21/22 [Rx Last Taken 05/23/23] doxazosin 8 mg tablet 8 mg PO QHS BLOOD PRESSURE #90 tabs 07/21/22 [Rx Last Taken 05/23/23] omeprazole 40 mg capsule,delayed release 40 mg PO DAILY ACID REFLUX #30 caps 02/15/23 [Rx Last Taken 05/23/23] doxepin 10 mg capsule 10 mg PO DAILY DEPRESSION 02/22/23 [History Last Taken 05/23/23] sevelamer carbonate 800 mg tablet 800 mg PO TIDCM PHOSPHATE LEVELS 03/10/23 [History Last Taken 05/23/23] carvedilol 6.25 mg tablet 6.25 mg PO BID HEART #60 tabs 03/14/23 [Rx Last Taken 05/23/23] ondansetron 4 mg disintegrating tablet 4 mg PO TID PRN NAUSEA/VOMITING #21 tabs 03/24/23 [Rx Last Taken 05/23/23] cholecalciferol (vitamin D3) 1,250 mcg (50,000 unit) capsule 1,250 mcg PO MOWEFR SUPPLEMENT 05/24/23 [History Last Taken 05/22/23] clonidine 0.3 mg/24 hr weekly transdermal patch 1 patch transdermal TU BLOOD PRESSURE 05/24/23 [History Last Taken 05/16/23] lurasidone 20 mg tablet 20 mg PO QPM BIPOLAR DISORDER 05/24/23 [History Last Taken 05/23/23] minoxidil 2.5 mg tablet 2.5 mg PO BID HAIR GROWTH 05/24/23 [History Last Taken 05/23/23] Allergy/AdvReac Type Severity Reaction Status Date / Time No Known Allergies Allergy Verified 05/24/23 09:59 Family History Mother Diabetes Hypertension HLD (hyperlipidemia) Anemia Myocardial infarction Heart disease Kidney disease Father Hypertension HLD (hyperlipidemia) Bipolar disorder Diabetes Alcoholism Arthritis Depression Mental disorder Other CVA (cerebral vascular accident) Surgical History Hx of left knee surgery Hx of surgical procedure Hx of vascular surgery S/P arteriovenous (AV) fistula creation Status post insertion of hemodialysis catheter Social History household members: none current occupational status: employed and unemployed 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 [employer], 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 Smoking Status: Current every day smoker tobacco type: e-cigarettes Smokeless tobacco user: other alcohol intake: current alcohol intake frequency: a few times a week details: 4 x a week substance use type: does not use do you feel safe at home: Yes ROS Review of Systems ROS Unobtainable: Denies due to encephalopathy, due to endotracheal tube, due to mental condition, due to mental status or other Constitutional Constitutional: Reports anorexia, fatigue, malaise and weakness Eyes Eyes: Denies blurry vision, change in eye color, change in vision, discharge from eye(s), double vision, erythema, eye pain, loss of vision or other ENT HEENT: Denies abnormal hearing, dysphagia, ear pain, epistaxis, headache(s), hearing loss, nasal congestion, nasal discharge, post nasal drip, sinus pressure, sore throat or other Cardiovascular Cardiovascular: Denies chest pain, claudication, dyspnea on exertion, edema, lig htheadedness, orthopnea, palpitations, paroxysmal nocturnal dyspnea, rapid heart rate, syncope or other Respiratory/Chest Respiratory/Chest: Denies cough, dyspnea, excessive phlegm production, hemoptysis, productive cough, shortness of breath at rest, shortness of breath with exertion, wheezing or other Gastrointestinal Gastrointestinal: Reports abdominal pain, dyspepsia, hematemesis, nausea and vom iting; Denies coffee ground emesis, constipation, diarrhea, hematochezia, loose stools, melena or other Genitourinary Genitourinary: Denies burning urination, difficulty urinating, dysuria, hematuria, nocturia, urinary frequency, urinary hesitancy, urinary incontinence, urinary urgency or other Musculoskeletal Musculoskeletal: Denies arthralgias, back pain, joint pain, joint stiffness, joint swelling, myalgias, neck pain or other Neurologic Neurologic: Denies abnormal gait, abnormal speech, confusion, disequilibrium, dizziness, focal weakness, headache(s), numbness, paresthesias, seizure-like activity, seizures, syncope, tingling, tremor(s) or other Psychiatric Psychiatric: Reports anxiety and depression; Denies homicidal ideation, suicidal ideation or other Endocrine Endocrinology: Denies change in body appearance, cold intolerance, excessive sweating, heat intolerance, polydipsia, polyuria or other Hematologic/Lymphatic Hematologic/Lymphatic: Denies anemia, easy bleeding, easy bruising, ly mphadenopathy or other Allergic/Immunologic Allergic/Immunologic: Denies rhinitis, hives, eczemia, asthma or other Vital Signs Vital Signs Vital Signs: 05/24/23 09:59 05/24/23 14:29 Temperature 98 F Temperature Source Temporal Pulse Rate 145 H 122 H Respiratory Rate 18 Blood Pressure 185/128 H 210/131 H Blood Pressure Mean 147 157 Pulse Ox 100 97 Oxygen Delivery Method Room Air Weight Weight: 83.688 kg Body Mass Index (BMI) 28.0 Physical Exam Const alert, oriented x3, no apparent distress and well nourished; Negative for healthy appearing Constitutional Narrative: Young middle-aged, -[place], male, lying in bed, appears ill but nontoxic HEENT normocephalic, head/scalp atraumatic and hearing grossly normal bilaterally; Negative for moist oral mucous membranes HEENT Narrative: Oropharynx is extremely dry, Mallampati is 3, no thrush Eyes PERRL, EOMs intact bilaterally and conjunctivae normal Eyes Narrative: No significant scleral icterus Neck no lymphadenopathy and supple Neck Narrative: Trachea midline, no thyroid enlargement Resp normal respiratory effort, no retractions, no use of accessory muscles and clear to auscultation bilaterally Auscultation: Negative for rales, rhonchi or wheezes Cardio regular rhythm, S1 normal heart sound, S2 normal heart sound, no murmurs, no rub, no gallops, no clicks and no JVD Cardio Narrative: Tachycardia GI normal to inspection, nondistended, normoactive bowel sounds and soft to palpation GI Narrative: Tenderness in the right lower quadrant and mild tenderness in the epigastrium Extremity no clubbing, cyanosis or edema Extremity Narrative: Pedal pulses are 2+, left upper extremity fistula with positive bruit and thrill Skin no rashes or lesions noted, no wounds, skin turgor normal, no jaundice, no petechiae and no mottling Skin Narrative: Abnormal skin turgor with tenting noted on exam Neuro oriented x3, CN's II-XII intact bilaterally, moves all extremities and no focal motor deficits Speech: speech normal Psych affect normal Psych Narrative: Very pleasant, eye contact is good, Results Lab / Micro Data 05/24/23 10:30 05/24/23 10:30 Labs: Laboratory Results - last 24 hr 05/24/23 10:30: WBC 9.5, RBC 3.29 L, Hgb 10.5 L, Hct 31.7 L, MCV 96.4 H, MCH 31.9, MCHC 33.1, RDW Std Deviation 54.8 H, RDW Coeff of [place] 15.6 H, Plt Count 264, MPV 10.0, Immature Gran % (Auto) 0.300, Neut % (Auto) 89.4 H, Lymph % (Auto) 4.6 L, [place] % (Auto) 4.6, Eos % (Auto) 0.0, Baso % (Auto) 1.1 H, Absolute Neuts (auto) 8.5 H, Absolute Lymphs (auto) 0.44 L, Nucleated RBC % 0, Toxic Granulation 1+, Sodium 142, Potassium 3.7, Chloride 101, Carbon Dioxide 16.0 L, Anion Gap 25 H, BUN 27 H, Creatinine 5.50 H, Estim Creat Clear Calc 20.70, Est GFR (MDRD) Af Amer 16 L, Est GFR (MDRD) Non-Af 13 L, BUN/Creatinine Ratio 4.9 L, Glucose 90, Lactic Acid 12.8 H*, Calcium 8.9, Total Bilirubin 0.60, AST 109 H, ALT 75 H, Alkaline Phosphatase 303 H, Total Protein 8.0, Albumin 3.0 L, Globulin 5.0 H, Albumin/Globulin Ratio 0.6 L, Lipase 85 H, Blood Type Cancelled, Antibody Screen Cancelled 05/24/23 12:04: Blood Type O POSITIVE, Antibody Screen NEGATIVE Imagaing Radiology Impression Abdomen/Pelvis CT 05/24/23 10:13 IMPRESSION: * Recrudescent sigmoid diverticulitis. There is an associated large diverticulum versus pericolic collection along the inferior aspect of this portion of the sigmoid colon which appears chronically thick-walled and fluid-filled. An underlying mass is not excluded. Recommend colonoscopy after resolution of the patient''s acute symptoms to exclude an underlying mass. * Hepatomegaly and severe diffuse hepatic steatosis. Electronically Signed: Simón Todd MD at 12:45 EST Reading Location ID and State: [facility] Tel , Service support , Assessment & Plan Assessment/Plan (1) Acidosis, lactic: (2) Dehydration: (3) Abdominal pain: (4) Hematemesis: (5) Acute diverticulitis: (6) Intractable nausea and vomiting: PLAN: Plan Intractable nausea and vomiting/hematemesis -Patient with ongoing nausea vomiting since Monday -Highly suspect hematemesis may be related to Radha-Disla tear -IV fluids at 75 cc/h x 1 L with patient's history of dialysis -Will utilize Reglan 5 mg every 6 hours scheduled with findings on CT of dilated esophagus that is fluid-filled -As needed compazine -As needed Dilaudid for pain -IV Protonix ggt -We will cycle hemoglobin every 6 hours x 3 -Hold aspirin for now -Consult GI Acute diverticulitis -On scan patient has sigmoid diverticulitis however his pain is on the right lower quadrant -CT also shows a portion of the sigmoid colon that appears to be chronically thick walled and filled with fluid but underlying mass is not excluded -Will continue Cipro and Flagyl -Once patient can take in p.o. liquids would recommend CT with p.o. contrast -Discussed initial scan with general surgery prior to admission -Consult GI -Consult general surgery if repeat CT with contrast requires surgical intervention or surgical consideration Lactic acid -Initial lactic acid was 12.5 -Repeat was -Patient frequently has elevated lactate due to decreased clearance with renal failure -IV fluids -Dialysis Hypertension -Will hold oral antihypertensives due to nausea and vomiting (minoxidil, doxazosin, clonidine patch, carvedilol, amlodipine) -Labetalol 40 every 6 -Continue clonidine patch -Schedule hydralazine 10 every 6 -As needed enalaprilat for systolic pressure greater than 160 GERD -Hold home oral PPI -IV PPI as above End-stage renal disease -Continue phosphorus binder -Typical dialysis is Monday -Patient has not had dialysis since Monday -Consult Dr. Rico for dialysis Chronic transaminitis elevation -Recommend outpatient follow-up with GI Chronic anemia secondary to renal disease -Hemoglobin currently stable -We will cycle hemoglobin with hematemesis -Repeat CBC in a.m. Vitamin D deficiency -Hold home vitamin D supplementation Bipolar disorder -Continue home doxepin -Continue home lurasidone DVT prophylaxis -Hold chemoprophylaxis due to hematemesis -SCDs for now CODE STATUS Full code Charges/Coding Visit Charges Inpatient E&M: 13556 Init Hosp L3
[2023-05-24] MEDS: hydrALAZINE 20 MG/ML Vial 10 MG IV ×3 (14:49→23:39)
[2023-05-24 15:03] LABS: Lactic Acid 2.5 mmol/L (0.4-1.9)
[2023-05-24 15:14] LABS: Reflex Lactate? Y
--- OUTSIDE RECORDS SUMMARY | 2023-05-24 16:00 | XMS RPT_ITS | CCD ---
Author Name Unknown Address [address] [place] [address] Organization [facility] Care Team Providers Care Continuous Improvement Facilitator Name Role Phone Ashkan Ward Unavailable Unavailable Corky Royal Unavailable Unavailable Unavailable Primary Care Provider Dona Cristina Primary Care Provider Unavailable Primary Care Provider Dona Cristina Primary Care Provider Medications Completed/Discontinued Medications Medication Drug Class(es) Dates [...] 01-06-2023 Influenza vaccination INFLUENZA (Sea son Ended) [facility] Start: 05-08-2022 DEPRESSION ASSESSMENT DEPRESSION ASS ESSMENT [facility] Start: 01-06-[address] [facility] Start: 12-21-2021 Adult depression screening assessment DEPRESSION SCREENING [facility] Start: 09-29-2021 ANNUAL PCP TEAM MEDICAL STAFF ASSISTANT LAINA DISEASE VISIT ANNUAL PCP TEAM CHRONIC DISEASE VISIT [facility] Start: 01-13-2021 COVID-19 VACCINE (3 - Booster for Moderna series) COVID-19 VACCINE (3 - Booster for Moderna series) [facility] Start: 10-08-2020 COVID-19 VACCINE (3 - Booster for Moderna series) COVID-19 VACCINE (3 - Booster for Moderna series) [facility] Start: 08-12-2020 COVID-19 VACCINE (2 - Moderna 2-dose series) COVID-19 VACCINE (2 - Moderna 2-dose series) [facility] Start: 01-07-2020 Influenza vaccination INFLUENZA (#1) [facility] Start: 2012 SHINGRIX VACCINE (1 of 2) SHINGRIX V ACCINE (1 of 2) [facility] Start: 2012 Urine microalbumin profile DTAP,TDAP,TD (1 - Tdap) [facility] Start: 2011 BP CONTROLLED (<130/80) BP CONTROLLE D (<130/80) [facility] Start: 2011 HEPATITIS C SCREENING HEPATITIS C SC CATHERINE [facility] Start: 2011 HIV SCREENING HIV SCREENING [facility] Start: 2005 Adult depression screening assessment DEPRESSION SCREENING [facility] Start: 1999 PNEUMOCOCCAL (1 - PCV) PNEUMOCOCCAL (1 - PCV) [facility] Start: 1994 HEPATITIS A (1 of 2 - Risk 2-dose series) HEPATITIS A (1 of 2 - Risk 2-dose series) [facility] Immunizations Immunization Date Immunization Notes Care Provider Godwin el 08-13-2020 COVID-19 vaccine, fu ll dose (MODERNA) Faby Shrestha APRN.CNP Work Phone: [facility] Work Phone: 07-15-2020 COVID-19 vaccine, fu ll dose (MODERNA) Faby Shrestha APRN.CNP Work Phone: [facility] Work Phone: Payers Date Payer Category Payer Medicaid [facility] ABRAHAN TAS [facility] [id number] 2022-Present [phone] [address] [place] [address] Medicaid [id number] 2019 Unknown [id number] 2019 Unknown [id number] Unknown [id number] Social History Date Type Detail Facility Tobacco smoking stat [facility] Unknown if ever smoked [facility] Start: 1995 Sex Assigned At Not on file [facility] Start: 11-21-2020 End: 12-21-2020 Exposure to SARS-CoV-2 (event) Not sure [facility] Tobacco smoking stat [facility] Tobacco smoking consumption unknown [facility] Start: 09-08-2020 Tobacco smoking stat [facility] Ex-smoker [facility] Work Phone: Start: 09-08-2020 Tobacco use and exposure Tamiko rose smokeless tobacco user [facility] Work Phone: Start: 10-12-2020 End: 12-21-2020 Alcohol intake Current drinker of alcohol (finding) [facility] Start: 12-21-2020 History SDOH Alcohol Frequency 3 [facility] Start: 12-21-2020 History SDOH Alcohol Std Drinks 2 [facility] Start: 09-08-2020 History SDOH Alcohol Comment 1 1/2 per day [facility] Start: 12-21-2020 History SDOH Social Connections Phone 1 [facility] Start: 12-21-2020 History SDOH Social Connections Living 8 [facility] Start: 12-21-2020 History SDOH Financial 4 [facility] Start: 09-08-2020 Tobacco Comment luca Sanders [facility] Start: 1995 Sex Assigned At Male [facility] History of tobacco use Current smoker [facility] Work Phone: Start: 12-21-2020 Education 17 [facility] Clinical Notes 09-07-2020 to 08-02-2022 Telephone Encounter [...] contact office to schedule with Dr. Woo- OPERATIONS PROGRAM MANAGER/ANEMIA/REF PROVIDER DR ELLIS*. 2ND attempt. Message left for patient to contact office to schedule with Dr. Woo- OPERATIONS PROGRAM MANAGER/ANEMIA/REF PROVIDER DR ELLIS* Summary: NEW PATIENT Received referral from Nurse DX: Anemia REF PROV: MONICA ELLIS 1st attempt: LM When pt returns call please assist in scheduling next OPERATIONS PROGRAM MANAGER apt with Once its completed please document in this encounter. Thank you! documented in this encounter [facility] 06-30-2022 Miscellaneous Notes Called and spoke with [...] understanding. Angy Norberto documented in this encounter [facility] 08-05-2021 Note [facility] Gina leti Tanner 08-03-2021 Note Occupational Therapy Inpatient Evaluation Medical Diagnosis: R VISUAL FIELD DEFICIT, L SIDED WEAKNESS OCCUPATIONAL PROFILE AND HISTORY Therapy Diagnosis: Rank Code Description 1 H53 Visual disturbances 2 Z74.1 Need for assistance with personal care Demographics: Age: 26Y Gender: Male Primary Language: Kuwaiti Preferred Language: Kuwaiti Referring Service/Team: Medicine Past Medical History: Past [...] 26-year-old male who initially presented to the [facility] emergency department July 30, 2021, [...] stage III chronic kidney disease. Lipase was [facility] PATIENT NAME: MICHAEL HAIDER [address] [facility] [address] MEDICAL REC #: [id number] [place] [address] ADMIT DATE: 08/02/21 SERVICE DATE: 08/03/21 Occupational [...] well. Patient has been transferred here to [facility] to accomplish this. 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 He was I w/all self care tasks and homemaking tasks. 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 [facility] PATIENT NAME: MICHAEL HAIDER [address] [facility] [address] MEDICAL REC #: [id number] [place] [address] ADMIT DATE: 08/02/21 SERVICE DATE: 08/03/21 Occupational Therapy Assessment ATTENDING PHY: Massimo Barrera DO Equipment Owned: None. 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 [facility] 12-21-2020 Note HNO ID: [id number] Author: Violet Jimenez APRN.STRAWHAT SIZER Service: ? Author Type: Nurse Specialist Type: [...] today for emergency department follow-up, seen at [facility] December 02, 2020 for chest [...] - ICD9: 790.99, ICD10: R79.89 noted at [facility], recheck before next visit - BASIC METABOLIC PNL 1 mo recheck BP with Te (more content not included)... [facility] 12-02-2020 Miscellaneous Notes TC to pt. He went to [facility] ER and he is in a room [...] too high). Scheduled same day appt with Slag Production Worker, to check BP. documented in this encounter [facility] 11-03-2020 Note HNO ID: [id number] Author: Serena Sorenson APRN.CNP Service: ? Author Type: Nurse Practitioner Type: Progress Notes Filed: 11/03/2020 12:51 PM Note Text: DEPARTMENT OF GASTROENTEROLOGY - FOLLOW UP VISIT- Virtual visit HISTORY OF PRESENT ILLNESS Michael Ulloa is a 25 year old male who presents today for follow up of EGD/Colonoscopy Diarrhea and heartburn. Called patient patient was unable to connect through [employer] d/t connection problems Having 4-5 BM daily [...] interpreting results (not separately reported). Serena Sorenson APRN.TRAFFIC SERGEANT November 03, 2020 [facility] 10-08-2020 Note HNO ID: [id number] Author: Yadira Leon RN Service: ? Author Type: Registered Nurse Type: Nursing Progress Note Filed: 10/08/2020 10:46 AM Note Text: Physician at bedside. [facility] 10-08-2020 Note HNO ID: [id number] Author: Yadira Leon RN Service: ? Author Type: Registered Nurse Type: Nursing Progress Note Filed: 10/08/2020 10:23 AM Note Text: Pt. States readiness for discharge. Assisted with dressing. [facility] 09-30-2020 Note HNO ID: [id number] Author: Violet Gibbs Service: ? Author Type: ? Type: Progress Notes Filed: 09/30/2020 10:16 PM Note Text: Thank you Scarlet, I will message pt and advise. [facility] 09-29-2020 Note HNO ID: [id number] Author: Scarlet Valenzuela Ma Service: ? Author Type: ? Type: Progress Notes Filed: 09/30/2020 10:16 PM Note Text: Pt is not due for physical as he just had one completed on 08/24/20. [facility] is not accepting new patients at this time. Scarlet Valenzuela Ma [facility] 09-29-2020 Note HNO ID: [id number] Author: Violet Gibbs Service: ? Author Type: ? Type: Progress Notes Filed: 09/30/2020 10:16 PM Note Text: Summary: New Physical Request This patient had a web request for a physical with [facility]. Is this ok to schedule? [facility] 09-21-2020 Note HNO ID: [id number] Author: Faby Shrestha APRN.TRAFFIC SERGEANT Service: ? Author Type: Nurse Practitioner Type: Progress Notes Filed: 09/21/2020 10:20 AM Note Text: This is a 25 year old male who presents today with: No chief complaint on file. HISTORY OF PRESENT ILLNESS: Michael lUloa is a 25 year old male. No [...] 6 weeks. - CMP (CMP) (FOR [facility] USE) - GGT BLD Follow up in 1 month or sooner as needed. Discussed treatment plan and patient voices understanding. Patient's questions answered appropriately. Medications and potential side effects were discussed and patient voices understanding. Faby Shrestha APRN.TRAFFIC SERGEANT This note was partially generated using [employer] voice recognition system. Note was reviewed for accuracy. There may be minor misspellings or grammar miscues with [employer] voice recognition. [facility] 09-07-2020 Note HNO ID: [id number] Author: Faby Shrestha APRN.TRAFFIC SERGEANT Service: ? Author Type: Nurse Practitioner Type: [...] discussed and patient voices understanding. Faby Shrestha APRN.TRAFFIC SERGEANT This note was partially generated using [employer] voice recognition system. Note was reviewed fo (more content not included)... [facility] Summary Purpose Family History No Family History Records FoundNo Family History Records FoundNo Family History Records FoundNo Family History Records FoundNo Family History Records Found Advance Directives Documents on File Type Date Recorded Patient Physical Testing Supervisor Expl anation Advance Directive(s) 06/22/2019 7:54 PM Documents on File Type Date Recorded Patient Physical Testing Supervisor Expl anation Advance Directive(s) 10/08/2020 8:51 AM [...] DATE CREATED AUTHOR AUTHOR'S ORGANIZ ATION 06/22/2019 [facility] DATE CREATED AUTHOR AUTHOR'S ORGANIZ ATION 08/09/2021 [facility] DATE CREATED AUTHOR AUTHOR'S ORGANIZ ATION 08/29/2021 [facility] DATE CREATED AUTHOR AUTHOR'S ORGANIZ ATION 07/01/2022 [facility] Source Comments (unrecognize d section and content) In the event this informatio n is protected by the Federal Confidentiality of Alcohol and Drug Abuse Patient Records regulations: The Federal rules restrict any use of the information to criminally investigate or prosecute any alcohol or drug abuse patient.[facility] the event this information is protected by the Federal Confidentiality of Alcohol and Drug Abuse Patient Records regulations: The Federal rules restrict any use of the information to criminally investigate or prosecute any alcohol or drug abuse patient.[facility] the event this information is protected by the Federal Confidentiality of Alcohol and Drug Abuse Patient Records regulations: The Federal rules restrict any use of the information to criminally investigate or prosecute any alcohol or drug abuse patient.[facility] the event this information is protected by the Federal Confidentiality of Alcohol and Drug Abuse Patient Records regulations: The Federal rules restrict any use of the information to criminally investigate or prosecute any alcohol or drug abuse patient.[facility] the event this information is protected by the Federal Confidentiality of Alcohol and Drug Abuse Patient Records regulations: The Federal rules restrict any use of the information to criminally investigate or prosecute any alcohol or drug abuse patient.[facility] Care Teams (unrecognized sec tion and content) Continuous Improvement Facilitator Relationship Specialty Start Date End Date Catalino Dona [address]lloa [address] [place] [address] PCP - General 08/18/00 Continuous Improvement Facilitator Relationship Specialty Start Date End Date Catalino Dona Ulloa [address] [place] [address] PCP - General 08/18/00 Reason for Visit [...] BE BASED ON THE PRIMARY CLINICAL RECORDS. [facility]. provides no warranty or guarantee of the accuracy or completeness of information in this document.
[2023-05-24] MEDS: 0.9% Normal Saline 1,000 ML IV.SOLN. 1000 ML OPERA.SITE (16:19)
[2023-05-24] MEDS: PureFlow B 3K Dialysis Soln 1 BAG 6 BAG PF (16:19)
[2023-05-24 16:51] LABS: Hematocrit 30.2 % (40-54)
[2023-05-24] MEDS: Labetalol (Prefilled) 20 MG/4 ML 40 MG IV ×2 (17:14→23:39)
[2023-05-24] MEDS: Metoclopramide 10 MG/2 ML Vial 5 MG IV ×2 (17:15→23:39)
[2023-05-24] MEDS: 0.9% Saline Lock 10 ML Syringe IV ×2 (17:16→18:37)
[2023-05-24] MEDS: HYDROmorphone 0.5 MG/0.5 ML SYRINGE IV ×2 (17:35→21:25)
[2023-05-24 18:10] LABS: Reflex Lactate? Y
--- NOTE | 2023-05-24 18:34 | EX.PCM.CON.S ---
Assessment & Plan Assessment/Plan (1) Diverticulitis: (2) Intractable nausea and vomiting: (3) Abdominal pain: PLAN: Plan Patient is a 28-year-old male, known to me for a prior tunneled dialysis catheter insertion after his diagnosis of end-stage renal disease, who presents for evaluation of intractable nausea and vomiting as well as right lower quadrant abdominal pain. He was found to have a picture of diffuse colitis as well as localized sigmoid inflammation with a pericolic pocket of fluid and air. In my independent review of patient's CT imaging I do not identify this feature on his most recent imaging from March 2023. However, I would concur with radiology that this is likely a chronic finding as patient is largely nontender in this area on exam. Based on patient's description of his symptoms I am most suspicious for some sort of infectious gastro intestinal process, but I do believe his abnormal CT imaging warrants further follow-up. Therefore I recommend keeping patient n.p.o. except sips with general bowel rest until he is feeling better. At that time would recommend pursuing repeat CT imaging with oral and rectal contrast. Patient is not presently having much in the way of bowel movements, but could consider a stool sample for an enteric pathogen panel. Surgery will continue to follow. HPI Consult Data Date of Consult: 05/24/23 HPI Narrative Reason for Consultation: Colitis and possible recurrent diverticulitis HPI Narrative: EDU WILCOX, is a 28 M who presented to [facility] with complaints of intractable nausea and vomiting beginning 05/21/2023. Patient states that he was vomiting nonstop for the past 3 days and unable to tolerate any oral intake. Along with the nausea and vomiting he notes that he had right lower quadrant abdominal pains. However, he had convinced himself that this was simply the stomach flu and that he therefore did not need hospital evaluation. He shares that when he started vomiting blood, however, he decided to seek further medical attention and arrived to the ER. In ER he was noted to have significant lactic acidosis with lactate of 12 and evidence of a metabolic acidosis more generally. He had reported that this had impeded his ability to get to dialysis. CT imaging of the abdomen pelvis was performed and read by radiology as likely consistent with recurrent diverticulitis. Of particular note radiology made mention of a chronic pericolic fluid collection versus particularly enlarged diverticulum. Surgery was asked to evaluate patient for this latter finding. [facility] Medical History (Updated 05/24/23 @ 15:49 by Jaylyn Heath) Alcohol abuse Anemia Bipolar 1 disorder Bleach ingestion Chronic renal failure Chronic renal failure, stage 5 Congestive heart failure (CHF) Dialysis patient Diastolic heart failure ESRD (end stage renal disease) Essential hypertension Family history of chronic kidney disease Former smoker GERD (gastroesophageal reflux disease) History of echocardiogram History of renal dialysis History of sepsis Hypertension Insomnia Irregular heart beat Irritable bowel syndrome (IBS) Kidney disease Multiple sclerosis Pancreatitis Problem with dialysis access PUD (peptic ulcer disease) Seizures Steatosis of liver Tinnitus Vision problems Wears contact lenses Home Medications aspirin 81 mg tablet,delayed release 81 mg PO BREAKFAST HEART HEALTH #30 tabs 07/05/22 [Rx Last Taken 05/23/23] amlodipine 10 mg tablet 10 mg PO BID BLOOD PRESSURE #180 tabs 07/21/22 [Rx Last Taken 05/23/23] doxazosin 8 mg tablet 8 mg PO QHS BLOOD PRESSURE #90 tabs 07/21/22 [Rx Last Taken 05/23/23] omeprazole 40 mg capsule,delayed release 40 mg PO DAILY ACID REFLUX #30 caps 02/15/23 [Rx Last Taken 05/23/23] doxepin 10 mg capsule 10 mg PO DAILY DEPRESSION 02/22/23 [History Last Taken 05/23/23] sevelamer carbonate 800 mg tablet 800 mg PO TIDCM PHOSPHATE LEVELS 03/10/23 [History Last Taken 05/23/23] carvedilol 6.25 mg tablet 6.25 mg PO BID HEART #60 tabs 03/14/23 [Rx Last Taken 05/23/23] ondansetron 4 mg disintegrating tablet 4 mg PO TID PRN NAUSEA/VOMITING #21 tabs 03/24/23 [Rx Last Taken 05/23/23] cholecalciferol (vitamin D3) 1,250 mcg (50,000 unit) capsule 1,250 mcg PO MOWEFR SUPPLEMENT 05/24/23 [History Last Taken 05/22/23] clonidine 0.3 mg/24 hr weekly transdermal patch 1 patch transdermal TU BLOOD PRESSURE 05/24/23 [History Last Taken 05/16/23] lurasidone 20 mg tablet 20 mg PO QPM BIPOLAR DISORDER 05/24/23 [History Last Taken 05/23/23] minoxidil 2.5 mg tablet 2.5 mg PO BID HAIR GROWTH 05/24/23 [History Last Taken 05/23/23] Allergy/AdvReac Type Severity Reaction Status Date / Time No Known Allergies Allergy Verified 05/24/23 09:59 Family History Mother Diabetes Hypertension HLD (hyperlipidemia) Anemia Myocardial infarction Heart disease Kidney disease Father Hypertension HLD (hyperlipidemia) Bipolar disorder Diabetes Alcoholism Arthritis Depression Mental disorder Other CVA (cerebral vascular accident) Surgical History Hx of left knee surgery Hx of surgical procedure Hx of vascular surgery S/P arteriovenous (AV) fistula creation Status post insertion of hemodialysis catheter Social History household members: none current occupational status: employed and unemployed 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 Overall unwell appearing Resp normal respiratory effort GI GI Narrative: Nondistended soft, tender to palpation with voluntary guarding of the right upper and left lower abdominal quadrants. Lab / Micro Data 05/24/23 16:30 05/24/23 10:30 Labs: Laboratory Results - last 24 hr 05/24/23 10:30: WBC 9.5, RBC 3.29 L, Hgb 10.5 L, Hct 31.7 L, MCV 96.4 H, MCH 31.9, MCHC 33.1, RDW Std Deviation 54.8 H, RDW Coeff of [place] 15.6 H, Plt Count 264, MPV 10.0, Immature Gran % (Auto) 0.300, Neut % (Auto) 89.4 H, Lymph % (Auto) 4.6 L, [place] % (Auto) 4.6, Eos % (Auto) 0.0, Baso % (Auto) 1.1 H, Absolute Neuts (auto) 8.5 H, Absolute Lymphs (auto) 0.44 L, Nucleated RBC % 0, Toxic Granulation 1+, Sodium 142, Potassium 3.7, Chloride 101, Carbon Dioxide 16.0 L, Anion Gap 25 H, BUN 27 H, Creatinine 5.50 H, Estim Creat Clear Calc 20.70, Est GFR (MDRD) Af Amer 16 L, Est GFR (MDRD) Non-Af 13 L, BUN/Creatinine Ratio 4.9 L, Glucose 90, Lactic Acid 12.8 H*, Calcium 8.9, Total Bilirubin 0.60, AST 109 H, ALT 75 H, Alkaline Phosphatase 303 H, Total Protein 8.0, Albumin 3.0 L, Globulin 5.0 H, Albumin/Globulin Ratio 0.6 L, Lipase 85 H, Blood Type Cancelled, Antibody Screen Cancelled 05/24/23 12:04: Blood Type O POSITIVE, Antibody Screen NEGATIVE 05/24/23 14:01: Lactic Acid 2.5 H* 05/24/23 16:30: Hgb 10.0 L, Hct 30.2 L Imagaing Radiology Impression Abdomen/Pelvis CT 05/24/23 10:13 IMPRESSION: * Recrudescent sigmoid diverticulitis. There is an associated large diverticulum versus pericolic collection along the inferior aspect of this portion of the sigmoid colon which appears chronically thick-walled and fluid-filled. An underlying mass is not excluded. Recommend colonoscopy after resolution of the patient''s acute symptoms to exclude an underlying mass. * Hepatomegaly and severe diffuse hepatic steatosis. Electronically Signed: Siómn Todd MD at 12:45 EST Reading Location ID and State: [address] [place] [address] Tel , Service support , Capacity Legal Business Strategy Manager Reflex Medical hold order details:: IF a medical hold is selected below, a suggested order for a MEDICAL HOLD will reflex upon signing the document. Next of kin: [place] law dictates a PRIORITY LIST for identifying legal decision-maker/legal next of kin in the following order (LNOK): 1st: The patient?s legal guardian, if any 2nd: The patient's spouse (if status is questionable, consult Risk Management) 3rd: The patient?s adult child(ellen) (majority, if multiple children) 4th: The patient?s parents 5th: The patient?s adult siblings (majority, if multiple children siblings) Charges/Coding Visit Charges Inpatient E&M: 54525 Init Hosp L2
[2023-05-24] MEDS: 0.9% Normal Saline (1000mL) 1,000 ML 75 ML IV (18:37)
[2023-05-24] MEDS: metroNIDAZOLE 500 MG/100 ML BAG 100 MG IV (21:17)
[2023-05-24] MEDS: proCHLORPERazine 10 MG/2 ML Vial 5 MG IV (21:25)
[2023-05-24 22:09] LABS: Hematocrit 29.3 % (40-54); Hemoglobin 9.5 g/dL (13.0-16.5)
[2023-05-25] VITALS (11 sets, daily range): BP systolic 143–178; BP diastolic 85–116; PULSE 96–107; RESP 16; TEMP 36.5–37.3; O2SAT 96–99
[2023-05-25] MEDS: Enalaprilat 1.25 MG/ML Vial 0.625 MG IV (02:40)
[2023-05-25] MEDS: 0.9% Saline Lock 10 ML Syringe IV ×4 (02:40→17:26)
[2023-05-25] MEDS: proCHLORPERazine 10 MG/2 ML Vial 5 MG IV ×3 (02:40→20:10)
[2023-05-25 04:35] LABS: Absolute Lymphocyte Count 0.74 X10^3/uL (0.83-4.51); Absolute Neutrophil Count 6.6 X10^3/uL (2.0-7.7); Basophil# 0.04 X10^3/uL; Basophil% 0.5 % (0-1); Eosinophil# 0.09 X10^3/uL; Eosinophils% 1.1 % (0-5); Hematocrit 27.7 % (40-54); Hemoglobin 9.4 g/dL (13.0-16.5); Lymphocyte # 0.74 X10^3/ul (0.83-4.51); Lymphocyte % 9.1 % (19-41); Mean Corp Hgb Conc 33.9 g/dL (32-36); Mean Corpuscular Hgb 32.6 pg (27.0-32.0); Mean Corpuscular Volume 96.2 fL (80-94); Mean Platelet Vol. 10.2 fl (6.2-12.0); Monocyte% 8.6 % (0-10); NRBC Flagged by Analyzer 0 % (0-5); Neutrophil # 6.57 X10^3/uL (2.7-7.7); Neutrophil % 80.3 % (47-70); Platelet Count 139 K/mm3 (150-450); RBC Distribution Width CV 15.9 % (11.6-14.6); Red Blood Count 2.88 M/mm3 (4.6-6.2); White Blood Count 8.2 K/mm3 (4.4-11.0)
[2023-05-25 04:56] LABS: ALB/GLOB Ratio 0.6 RATIO (0.9-2.4); AST(SGOT) 73 U/L (15-37); Alanine Aminotransfer ALT/SGPT 53 U/L (16-61); Albumin, Serum 2.6 g/dL (3.2-5.0); Alkaline Phosphatase 233 U/L (45-117); Anion Gap 6 (5-15); BUN 21 mg/dL (7-18); BUN/Creat Ratio 4.5 RATIO (10-20); Calcium,Total 8.2 mg/dL (8.5-10.1); Chloride 108 mmol/L (98-107); Creatinine, Serum 4.66 mg/dL (0.70-1.30); EST Glomerular Filtration Rate 16 mL/min (>60); Est Glom Filt Rate - Afr Amer 19 mL/min (>60); Estimated Creatinine Clearance 22.42 ml/min; Glucose 109 mg/dL (74-106); Magnesium 1.6 mg/dL (1.6-2.6); Phosphorus 1.3 mg/dL (2.5-4.9); Potassium 3.2 mmol/L (3.5-5.1); Protein, Total 6.6 g/dL (6.4-8.2); Sodium Level 143 mmol/L (136-145)
[2023-05-25] MEDS: hydrALAZINE 20 MG/ML Vial 10 MG IV ×4 (05:41→23:54)
[2023-05-25] MEDS: Metoclopramide 10 MG/2 ML Vial 5 MG IV ×3 (05:41→17:25)
[2023-05-25] MEDS: Labetalol (Prefilled) 20 MG/4 ML 40 MG IV ×4 (05:41→23:53)
[2023-05-25] MEDS: metroNIDAZOLE 500 MG/100 ML BAG 100 MG IV ×3 (05:42→21:27)
--- NOTE | 2023-05-25 08:10 | PCM.PN.SRG ---
Subjective Subjective Patient evaluated resting comfortably in bed. He continues to note nausea and dry heaves this morning. He states he is hungry. He notes his abdominal pain is in the right lower quadrant and is a 5 out of 10. Patient notes multiple loose stools over night. Objective Data Objective Data Vital Signs: Vital Signs Temp Pulse Resp BP Pulse Ox O2 Del Method 98.9 F 96 16 149/98 H 96 Room Air 05/25/23 04:12 05/25/23 05:41 05/25/23 04:12 05/25/23 04:12 05/25/23 04:12 05/25/23 04:12 Oxygen Delivery Method Room Air Weight: 179 lb 7.3 oz Body Mass Index (BMI) 27.1 Intake & Output: Intake and Output for Last 24 Hours 05/23/23 05/24/23 05/25/23 23:59 23:59 23:59 Intake Total 1400 / 1400 100 / 100 Output Total 200 / 200 250 / 250 Balance 1200 / 1200 -150 / -150 Lab / Micro Data 05/25/23 10:10 05/25/23 04:17 Labs: Laboratory Results - last 24 hr 05/24/23 10:30: WBC 9.5, RBC 3.29 L, Hgb 10.5 L, Hct 31.7 L, MCV 96.4 H, MCH 31.9, MCHC 33.1, RDW Std Deviation 54.8 H, RDW Coeff of [place] 15.6 H, Plt Count 264, MPV 10.0, Immature Gran % (Auto) 0.300, Neut % (Auto) 89.4 H, Lymph % (Auto) 4.6 L, [place] % (Auto) 4.6, Eos % (Auto) 0.0, Baso % (Auto) 1.1 H, Absolute Neuts (auto) 8.5 H, Absolute Lymphs (auto) 0.44 L, Nucleated RBC % 0, Toxic Granulation 1+, Sodium 142, Potassium 3.7, Chloride 101, Carbon Dioxide 16.0 L, Anion Gap 25 H, BUN 27 H, Creatinine 5.50 H, Estim Creat Clear Calc 20.70, Est GFR (MDRD) Af Amer 16 L, Est GFR (MDRD) Non-Af 13 L, BUN/Creatinine Ratio 4.9 L, Glucose 90, Lactic Acid 12.8 H*, Calcium 8.9, Total Bilirubin 0.60, AST 109 H, ALT 75 H, Alkaline Phosphatase 303 H, Total Protein 8.0, Albumin 3.0 L, Globulin 5.0 H, Albumin/Globulin Ratio 0.6 L, Lipase 85 H, Blood Type Cancelled, Antibody Screen Cancelled 05/24/23 12:04: Blood Type O POSITIVE, Antibody Screen NEGATIVE 05/24/23 14:01: Lactic Acid 2.5 H* 05/24/23 16:30: Hgb 10.0 L, Hct 30.2 L 05/24/23 18:10: Lactic Acid 2.0 05/24/23 21:58: Hgb 9.5 L, Hct 29.3 L 05/25/23 04:17: WBC 8.2, RBC 2.88 L, Hgb 9.4 L, Hct 27.7 L, MCV 96.2 H, MCH 32.6 H, MCHC 33.9, RDW Std Deviation 57.0 H, RDW Coeff of [place] 15.9 H, Plt Count 139 L, MPV 10.2, Immature Gran % (Auto) 0.400, Neut % (Auto) 80.3 H, Lymph % (Auto) 9.1 L, [place] % (Auto) 8.6, Eos % (Auto) 1.1, Baso % (Auto) 0.5, Absolute Neuts (auto) 6.6, Absolute Lymphs (auto) 0.74 L, Nucleated RBC % 0, Sodium 143, Potassium 3.2 L, Chloride 108 H, Carbon Dioxide 29.0, Anion Gap 6, BUN 21 H, Creatinine 4.66 H, Estim Creat Clear Calc 22.42, Est GFR (MDRD) Af Amer 19 L, Est GFR (MDRD) Non-Af 16 L, BUN/Creatinine Ratio 4.5 L, Glucose 109 H, Calcium 8.2 L, Phosphorus 1.3 L, Magnesium 1.6, Total Bilirubin 0.90, AST 73 H, ALT 53, Alkaline Phosphatase 233 H, Total Protein 6.6, Albumin 2.6 L, Globulin 4.0, Albumin/Globulin Ratio 0.6 L Radiography Diagnostic Testing: Radiology Impression Abdomen/Pelvis CT 05/24/23 10:13 IMPRESSION: * Recrudescent sigmoid diverticulitis. There is an associated large diverticulum versus pericolic collection along the inferior aspect of this portion of the sigmoid colon which appears chronically thick-walled and fluid-filled. An underlying mass is not excluded. Recommend colonoscopy after resolution of the patient''s acute symptoms to exclude an underlying mass. * Hepatomegaly and severe diffuse hepatic steatosis. Electronically Signed: Simón Todd MD at 12:45 EST Reading Location ID and State: [address] [place] [address] Tel , Service support , Physical Exam Const alert, oriented x3 and no apparent distress GI GI Narrative: Abdomen- soft, tenderness in the right lower quadrant, hypoactive bowel sounds Assessment & Plan Assessment/Plan (1) Abdominal pain: QUALIFIERS: Abdominal location: right lower quadrant Qualified Code(s): R10.31 - Right lower quadrant pain (2) Intractable nausea and vomiting: PLAN: Plan I am following this patient in conjunction with Dr. Abraham. He will independently evaluate this patient. Continue NPO/sips and chips status, as patient continues to have nausea/vomiting Patient's pain has not improved, hold on obtaining CT scan of ab/pel with oral and rectal contrast Obtain stool cultures We will continue to monitor this patient Capacity Legal Hair Blender Reflex Medical hold order details:: IF a medical hold is selected below, a suggested order for a MEDICAL HOLD will reflex upon signing the document. Next of kin: [place] law dictates a PRIORITY LIST for identifying legal decision-maker/legal next of kin in the following order (LNOK): 1st: The patient?s legal guardian, if any 2nd: The patient's spouse (if status is questionable, consult Risk Management) 3rd: The patient?s adult child(ellen) (majority, if multiple children) 4th: The patient?s parents 5th: The patient?s adult siblings (majority, if multiple children siblings) Charges/Coding Visit Charges Inpatient E&M: 50132 Subs Hosp L1
[2023-05-25] MEDS: HYDROmorphone 0.5 MG/0.5 ML SYRINGE IV ×2 (08:21→15:27)
[2023-05-25 10:27] LABS: Hematocrit 28.1 % (40-54); Hemoglobin 9.2 g/dL (13.0-16.5)
--- NOTE | 2023-05-25 10:34 | CASEMGMT ---
Per nursing admission questions patient does not have Healthcare Power of Merchandising Director or Healthcare Living Will. Patient was not interested in documents. Lizeth HAQ
--- NOTE | 2023-05-25 10:38 | CON.PCM.RE_ITS ---
Assessment & Plan Assessment/Plan (1) Dependent on hemodialysis: PLAN: Patient has end-stage kidney disease and has been on dialysis for about a year, last hemodialysis yesterday while in the hospital. His electrolytes showed mild hypokalemia which is common in patients right after dialysis. He appears to be euvolemic and not acidotic. He has functional access. He does not need dialysis today, will keep him on dialysis on Monday schedule, next dialysis being tomorrow. HPI Consult Data Date of Consult: 05/25/23 HPI Narrative Reason for Consultation: ESRD HPI Narrative: EDU WILCOX, is a 28 M who presents last night with abdominal pain, dry heaves, nausea, loss of appetite. He has known history of diverticulitis. Patient has end-stage kidney disease and has been on dialysis for about a year. He goes to [facility] on a Monday schedule. Usually dialyzed 4 hours with minimal fluid removal. He has some residual kidney function and has minimal weight gains in between dialysis. He has well-functioning left upper arm AV fistula. Because he came over yesterday and reports his day yesterday, he had dialysis last night. There was no issue during dialysis, access has been patent. [facility] Medical History (Updated 05/25/23 @ 10:[address] Amy Prajapati MD) Alcohol abuse Anemia Bipolar 1 disorder Bleach ingestion Chronic renal failure Chronic renal failure, stage 5 Congestive heart failure (CHF) Dialysis patient Diastolic heart failure End stage renal disease on dialysis ESRD (end stage renal disease) Essential hypertension Family history of chronic kidney disease Former smoker GERD (gastroesophageal reflux disease) History of echocardiogram History of renal dialysis History of sepsis Hypertension Insomnia Irregular heart beat Irritable bowel syndrome (IBS) Kidney disease Multiple sclerosis Pancreatitis Problem with dialysis access PUD (peptic ulcer disease) Seizures Steatosis of liver Tinnitus Vision problems Wears contact lenses Home Medications aspirin 81 mg tablet,delayed release 81 mg PO BREAKFAST HEART HEALTH #30 tabs 07/05/22 [Rx Last Taken 05/23/23] amlodipine 10 mg tablet 10 mg PO BID BLOOD PRESSURE #180 tabs 07/21/22 [Rx Last Taken 05/23/23] doxazosin 8 mg tablet 8 mg PO QHS BLOOD PRESSURE #90 tabs 07/21/22 [Rx Last Taken 05/23/23] omeprazole 40 mg capsule,delayed release 40 mg PO DAILY ACID REFLUX #30 caps 02/15/23 [Rx Last Taken 05/23/23] doxepin 10 mg capsule 10 mg PO DAILY DEPRESSION 02/22/23 [History Last Taken 05/23/23] sevelamer carbonate 800 mg tablet 800 mg PO TIDCM PHOSPHATE LEVELS 03/10/23 [History Last Taken 05/23/23] carvedilol 6.25 mg tablet 6.25 mg PO BID HEART #60 tabs 03/14/23 [Rx Last Taken 05/23/23] ondansetron 4 mg disintegrating tablet 4 mg PO TID PRN NAUSEA/VOMITING #21 tabs 03/24/23 [Rx Last Taken 05/23/23] cholecalciferol (vitamin D3) 1,250 mcg (50,000 unit) capsule 1,250 mcg PO MOWEFR SUPPLEMENT 05/24/23 [History Last Taken 05/22/23] clonidine 0.3 mg/24 hr weekly transdermal patch 1 patch transdermal TU BLOOD PRESSURE 05/24/23 [History Last Taken 05/16/23] lurasidone 20 mg tablet 20 mg PO QPM BIPOLAR DISORDER 05/24/23 [History Last Taken 05/23/23] minoxidil 2.5 mg tablet 2.5 mg PO BID HAIR GROWTH 05/24/23 [History Last Taken 05/23/23] Allergy/AdvReac Type Severity Reaction Status Date / Time No Known Allergies Allergy Verified 05/24/23 09:59 Family History Mother Diabetes Hypertension HLD (hyperlipidemia) Anemia Myocardial infarction Heart disease Kidney disease Father Hypertension HLD (hyperlipidemia) Bipolar disorder Diabetes Alcoholism Arthritis Depression Mental disorder Other CVA (cerebral vascular accident) Surgical History Hx of left knee surgery Hx of surgical procedure Hx of vascular surgery S/P arteriovenous (AV) fistula creation Status post insertion of hemodialysis catheter Social History household members: none current occupational status: employed and unemployed 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[employer], 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 Smoking Status: Current every day smoker tobacco type: e-cigarettes Smokeless tobacco user: other alcohol intake: current alcohol intake frequency: a few times a week details: 4 x a week substance use type: does not use do you feel safe at home: Yes ROS KLAUIDA Narrative Continues to have some abdominal pain and nausea Constitutional Constitutional: Reports malaise and weakness Eyes Eyes: Denies blindness, blurry vision, change in vision, discongugate gaze, double vision, dry eyes or loss of vision ENT HEENT: Denies dry mouth, epistaxis, hoarseness, loss taste/smell or nasal congestion Cardiovascular Cardiovascular: Denies chest pain, claudication, diaphoresis, dyspnea on exertion, edema, irregular heart rhythm, leg edema, orthopnea, palpitations or syncope Respiratory/Chest Respiratory/Chest: Denies dry cough, dyspnea on exertion, hemoptysis, portable oxygen @ home, productive cough, shortness of breath at rest or wheezing Gastrointestinal Gastrointestinal: Reports abdominal pain, anorexia, dry heaves, nausea and vomi ting Genitourinary Genitourinary: Denies change in urinary stream, difficulty urinating, dribbling, dysuria, flank pain, hematuria, nocturia, oliguria, post void dribbling, urinary frequency, urinary hesitancy, urinary incontinence or urinary urgency Musculoskeletal Musculoskeletal: Denies abnormal gait, arthralgias, joint stiffness, joint swelling, muscle cramps or myalgias Integumentary Integumentary: Denies dry skin, erythema, jaundice, lesions, pruritus, rash or skin ulcer Neurologic Neurologic: Denies abnormal gait, burning sensations, confusion, focal weakness, frequent falls, headache(s), numbness, restless legs, seizures, syncope, tremor(s) or weakness Psychiatric Psychiatric: Denies anxiety, confusion, depression or hallucinations Endocrine Endocrinology: Denies cold intolerance, fatigue, heat intolerance, polydipsia or polyuria Hematologic/Lymphatic Hematologic/Lymphatic: Denies anemia, easy bleeding or easy bruising Physical Exam Const alert, oriented x3, no apparent distress and average body habitus General Appearance: well developed Orientation / Consciousness: oriented to person, oriented to place and oriented to time HEENT normocephalic Head and Scalp: atraumatic Eyes PERRL Neck no lymphadenopathy Resp no use of accessory muscles and clear to auscultation bilaterally Cardio regular rate, no murmurs and no rub Cardio Narrative: No edema GI Auscultation: normoactive bowel sounds Palpation: tender Extremity General Extremity: AV fistula Skin no rashes or lesions noted Neuro Sensorium / Orientation: awake and alert Psych cooperative Lab / Micro Data Attestation: I reviewed the patient's lab results. 05/25/23 10:10 05/25/23 04:17 Labs: Laboratory Results - last 24 hr 05/24/23 10:30: WBC 9.5, RBC 3.29 L, Hgb 10.5 L, Hct 31.7 L, MCV 96.4 H, MCH 31.9, MCHC 33.1, RDW Std Deviation 54.8 H, RDW Coeff of [place] 15.6 H, Plt Count 264, MPV 10.0, Immature Gran % (Auto) 0.300, Neut % (Auto) 89.4 H, Lymph % (Auto) 4.6 L, [place] % (Auto) 4.6, Eos % (Auto) 0.0, Baso % (Auto) 1.1 H, Absolute Neuts (auto) 8.5 H, Absolute Lymphs (auto) 0.44 L, Nucleated RBC % 0, Toxic Granulation 1+, Sodium 142, Potassium 3.7, Chloride 101, Carbon Dioxide 16.0 L, Anion Gap 25 H, BUN 27 H, Creatinine 5.50 H, Estim Creat Clear Calc 20.70, Est GFR (MDRD) Af Amer 16 L, Est GFR (MDRD) Non-Af 13 L, BUN/Creatinine Ratio 4.9 L, Glucose 90, Lactic Acid 12.8 H*, Calcium 8.9, Total Bilirubin 0.60, AST 109 H, ALT 75 H, Alkaline Phosphatase 303 H, Total Protein 8.0, Albumin 3.0 L, Globulin 5.0 H, Albumin/Globulin Ratio 0.6 L, Lipase 85 H, Blood Type Cancelled, Antibody Screen Cancelled 05/24/23 12:04: Blood Type O POSITIVE, Antibody Screen NEGATIVE 05/24/23 14:01: Lactic Acid 2.5 H* 05/24/23 16:30: Hgb 10.0 L, Hct 30.2 L 05/24/23 18:10: Lactic Acid 2.0 05/24/23 21:58: Hgb 9.5 L, Hct 29.3 L 05/25/23 04:17: WBC 8.2, RBC 2.88 L, Hgb 9.4 L, Hct 27.7 L, MCV 96.2 H, MCH 32.6 H, MCHC 33.9, RDW Std Deviation 57.0 H, RDW Coeff of [place] 15.9 H, Plt Count 139 L , MPV 10.2, Immature Gran % (Auto) 0.400, Neut % (Auto) 80.3 H, Lymph % (Auto) 9.1 L, [place] % (Auto) 8.6, Eos % (Auto) 1.1, Baso % (Auto) 0.5, Absolute Neuts (auto) 6.6, Absolute Lymphs (auto) 0.74 L, Nucleated RBC % 0, Sodium 143, Potassium 3.2 L, Chloride 108 H, Carbon Dioxide 29.0, Anion Gap 6, BUN 21 H, Creatinine 4.66 H, Estim Creat Clear Calc 22.42, Est GFR (MDRD) Af Amer 19 L, Es t GFR (MDRD) Non-Af 16 L, BUN/Creatinine Ratio 4.5 L, Glucose 109 H, Calcium 8.2 L, Phosphorus 1.3 L, Magnesium 1.6, Total Bilirubin 0.90, AST 73 H, ALT 53, Alkaline Phosphatase 233 H, Total Protein 6.6, Albumin 2.6 L, Globulin 4.0, Albumin/Globulin Ratio 0.6 L 05/25/23 10:10: Hgb 9.2 L, Hct 28.1 L Imagaing Radiology Impression Abdomen/Pelvis CT 05/24/23 10:13 IMPRESSION: * Recrudescent sigmoid diverticulitis. There is an associated large diverticulum versus pericolic collection along the inferior aspect of this portion of the sigmoid colon which appears chronically thick-walled and fluid-filled. An underlying mass is not excluded. Recommend colonoscopy after resolution of the patient''s acute symptoms to exclude an underlying mass. * Hepatomegaly and severe diffuse hepatic steatosis. Electronically Signed: Simón Todd MD at 12:45 EST , Capacity Legal Dairy Manufacturing Technologist Reflex Medical hold order details:: IF a medical hold is selected below, a suggested order for a MEDICAL HOLD will reflex upon signing the document. Next of kin: [place] law dictates a PRIORITY LIST for identifying legal decision-maker/legal next of kin in the following order (LNOK): 1st: The patient?s legal guardian, if any 2nd: The patient's spouse (if status is questionable, consult Risk Management) 3rd: The patient?s adult child(ellen) (majority, if multiple children) 4th: The patient?s parents 5th: The patient?s adult siblings (majority, if multiple children siblings)
[2023-05-25] MEDS: Doxepin Hydrochloride 10 MG Capsule PO (10:56)
[2023-05-25] MEDS: Ciprofloxacin 400 MG/200 ML BAG 200 MG IV (15:28)
--- NOTE | 2023-05-25 18:00 | CASEMGMT ---
RN?CM?RECYCLE WORKER?CM?to room to meet with patient for initial transition planning/care coordination?assessment.?RN?CM?introduced self and role at [facility].? Pt voices understanding and consents to?assessment?at this time.? Pt resting in bed in no distress at this time.? Pt is A/O at this time and answers all questions appropriately.?? Care providers, pharmacy, and demographics verified/updated at this time. PCP: Dr Ware Specialists: [facility]/cardiology, Trisha-field sampling technician, Dr Srtatton, GI Dialysis: Pt goes to [facility] for OP HD. Chair time @ noon. Preferred Pharmacy: [facility] at discharge. Insurance: JARRET/[id number] Prescription Benefit: yes Living Will/HPOA: none. Pt states he does not wish to complete HCPOA, stating he does not have anyone he wants to have has his HCPOA. He is aware, if he would like to complete this in the future that he can make an appt with SW @ [facility]. He voices understanding. LNOK: Kellie rich and Natanael are listed as contacts. Pt states he has no living relatives, stating, Don't have anyone Living Arrangements: Patient lives alone in second floor apartment and states he does alright with the stairs. Patient is independent at home Transportation: self, friend DME/HHC/SNF: Patient denies DME in the home. Patient denies previous HHC or SNF. He has done Pt Link program through [facility] in the past, but does not feel like he that again at this time. ETOH and smoking: Pt states he drinks about 5-10 oz of hard liquor about every other day and also states he vapes. Pt states he has been unemployed 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 and has limited resources. He states he is concerned about paying his rent and sometimes worries about having enough money for food. He is interested in talking w/SW for resources. Order placed. Pt wishes to return home and states has no further concerns with going home at time of discharge.? CM?to follow for any discharge planning/needs.? Pt voices no further concerns/needs at this time.? Advised pt to ask for?CM?if any further questions/concerns/needs arise.? Voices understanding. PLAN:??Home w/discharge plans in place. SW referral for financial concerns. DGiauque BSN?RN?CM
--- NOTE | 2023-05-25 19:15 | PCM.PN.HOSP ---
Reason for Visit Reason for Visit: Diagnoses Dehydration (05/24/23) Acidosis, unspecified (05/24/23) Diverticulitis of intestine, part unspecified, without perforation or abscess without bleeding (05/24/23) Hematemesis (05/24/23) Right lower quadrant pain (05/24/23) Unspecified abdominal pain (05/24/23) Nausea with vomiting, unspecified (05/24/23) Dependence on renal dialysis (05/24/23) Subjective Subjective Patient was seen and examined today, he asked to be placed on a regular diet today, patient's nausea has pretty much resolved. I talked briefly with general surgery who is planning to order a CT with contrast tomorrow. Patient's next dialysis day is tomorrow. Objective Data Objective Data Vital Signs: Vital Signs Temp Pulse Resp BP Pulse Ox O2 Del Method 97.7 F L 101 H 16 169/105 H 99 Room Air 05/25/23 14:45 05/25/23 17:22 05/25/23 14:45 05/25/23 17:22 05/25/23 14:45 05/25/23 14:45 Oxygen Delivery Method Room Air Weight: 81.4 kg Body Mass Index (BMI) 27.1 Intake & Output: Intake and Output for Last 24 Hours 05/23/23 05/24/23 05/25/23 23:59 23:59 23:59 Intake Total 1400 / 1400 1500 / 1500 Output Total 200 / 200 451 / 451 Balance 1200 / 1200 1049 / 1049 Medical Nutrition Assessment Dietitian: Malnutrition Criteria Met Start: 05/25/23 15:15 Freq: Status: Active Protocol: Document 05/25/23 15:15 AG (Rec: 05/25/23 15:15 AG Desktop) Nutrition Malnutrition Evidence of Malnutrition Exists Yes Malnutrition (severe): Acute Illness/Injury Evidenced By Suboptimal Energy Intake ( Severe),Weight Loss (Severe) Clinical Problem Acute Disease or Injury Related Malnutrition Etiology severe, acute malnutrition related to inadequate energy intake w/ GI dysfunction Signs/Symptoms as evidenced by unintentional 4% wt loss < 1 week, estimated PO intake meeting <50% of estimated energy needs > 5 days Status Active Problem Recommendation Dietitian Recommendations/Changes continue renal diet as tolerated; consider fiber restriction pending further GI workup, determination of etiology re: abd pain. Lab / Micro Data 05/25/23 10:10 05/25/23 04:17 Labs: Laboratory Results - last 24 hr 05/24/23 21:58: Hgb 9.5 L, Hct 29.3 L 05/25/23 04:17: WBC 8.2, RBC 2.88 L, Hgb 9.4 L, Hct 27.7 L, MCV 96.2 H, MCH 32.6 H, MCHC 33.9, RDW Std Deviation 57.0 H, RDW Coeff of [place] 15.9 H, Plt Count 139 L, MPV 10.2, Immature Gran % (Auto) 0.400, Neut % (Auto) 80.3 H, Lymph % (Auto) 9.1 L, [place] % (Auto) 8.6, Eos % (Auto) 1.1, Baso % (Auto) 0.5, Absolute Neuts (auto) 6.6, Absolute Lymphs (auto) 0.74 L, Nucleated RBC % 0, Sodium 143, Potassium 3.2 L, Chloride 108 H, Carbon Dioxide 29.0, Anion Gap 6, BUN 21 H, Creatinine 4.66 H, Estim Creat Clear Calc 22.42, Est GFR (MDRD) Af Amer 19 L, Est GFR (MDRD) Non-Af 16 L, BUN/Creatinine Ratio 4.5 L, Glucose 109 H, Calcium 8.2 L, Phosphorus 1.3 L, Magnesium 1.6, Total Bilirubin 0.90, AST 73 H, ALT 53, Alkaline Phosphatase 233 H, Total Protein 6.6, Albumin 2.6 L, Globulin 4.0, Albumin/Globulin Ratio 0.6 L 05/25/23 10:10: Hgb 9.2 L, Hct 28.1 L Micro: Microbiology 05/25/23 15:26 Stool Stool Lactoferrin - Final 05/25/23 15:26 Stool Enteric Bacteriology - Final 05/25/23 15:26 Stool Stool Occult Blood (NAVEEN) - Final Occult Blood Positive Physical Exam Const alert, oriented x3, no apparent distress and healthy appearing General Appearance: cooperative, well kempt and well developed Orientation / Consciousness: awake, oriented to person, oriented to place and oriented to time HEENT normocephalic, head/scalp atraumatic and moist oral mucous membranes Eyes PERRL, EOMs intact bilaterally and conjunctivae normal Neck supple, no JVD, thyroid normal and no carotid bruits General: trachea midline Resp normal respiratory effort, no retractions, no use of accessory muscles and clear to auscultation bilaterally Auscultation: Negative for rales, rhonchi or wheezes Cardio regular rate, regular rhythm, S1 normal heart sound, S2 normal heart sound, no murmurs, no rub and no gallops GI normal to inspection, nondistended, normoactive bowel sounds, soft to palpation and non-distended GI Narrative: Patient has some mild abdominal tenderness to palpation in the mid abdominal quadrant and the right lateral abdominal quadrant Extremity no clubbing, cyanosis or edema Skin no rashes or lesions noted General Skin Exam: no breakdown Neuro oriented x3, CN's II-XII intact bilaterally, moves all extremities, no focal motor deficits and no sensory deficits noted Sensorium / Orientation: awake and alert Speech: speech normal Psych affect normal Assessment & Plan Assessment/Plan (1) Intractable nausea and vomiting: PLAN: Plan 1. Intractable nausea and vomiting with hematemesis-etiology unclear at this point, gastroenterology will see the patient in consultation, general surgery is also participating in his care, again his dialysis today will be tomorrow. Patient remains on IV PPI. #2 acute diverticulitis-surgery states that they will perform a CT of the abdomen with contrast tomorrow if the patient is no longer vomiting, patient remains on IV antibiotics, GI is consulted to see the patient #3 end-stage renal disease on dialysis-patient will undergo dialysis again tomorrow, nephrology is participating in his care #4 anemia of chronic renal disease-patient does not require transfusion at this time, labs will be monitored as necessary #5 lactic acid elevation-possibly secondary to end-stage renal disease, when admitted, patient had not been dialyzed in several days, patient's last lactic acid was normal Total clinical time spent by myself addressing the patient's medical issues, reviewing all of his data, and collaborating with patient's care team: 35 minutes Capacity Legal Adjusto Writer Operator Reflex Medical hold order details:: IF a medical hold is selected below, a suggested order for a MEDICAL HOLD will reflex upon signing the document. Next of kin: [place] law dictates a PRIORITY LIST for identifying legal decision-maker/legal next of kin in the following order (LNOK): 1st: The patient?s legal guardian, if any 2nd: The patient's spouse (if status is questionable, consult Risk Management) 3rd: The patient?s adult child(ellen) (majority, if multiple children) 4th: The patient?s parents 5th: The patient?s adult siblings (majority, if multiple children siblings) Charges/Coding Visit Charges Inpatient E&M: 15056 Subs Hosp L2
[2023-05-26] VITALS (18 sets, daily range): BP systolic 103–285; BP diastolic 73–104; PULSE 83–112; RESP 14–20; TEMP 36.9–37.6; O2SAT 96–100; BMI 27.3
[2023-05-26] MEDS: Metoclopramide 10 MG/2 ML Vial 5 MG IV ×5 (00:09→23:46)
[2023-05-26] MEDS: Labetalol (Prefilled) 20 MG/4 ML 40 MG IV ×4 (05:42→23:49)
[2023-05-26] MEDS: hydrALAZINE 20 MG/ML Vial 10 MG IV ×4 (05:42→23:40)
[2023-05-26] MEDS: metroNIDAZOLE 500 MG/100 ML BAG 100 MG IV ×3 (05:42→21:59)
[2023-05-26] MEDS: 0.9% Normal Saline 1,000 ML IV.SOLN. 1000 ML OPERA.SITE (07:47)
[2023-05-26] MEDS: PureFlow B 3K Dialysis Soln 1 BAG 6 BAG PF (07:48)
--- NOTE | 2023-05-26 08:39 | CT_ITS ---
INDICATION: f/u CT finding of possible pericolic fluid collect EXAMINATION: CT ABDOMEN AND PELVIS WITHOUT CONTRAST - CT Abdomen And Pelvis W/O Contrast Injection TECHNIQUE: Helically acquired images were obtained of the abdomen and pelvis without oral or IV contrast. A radiation dose optimization technique was used for this scan. IV Contrast dosage and agent: None. Oral contrast: None. RADIATION DOSAGE (If Supplied By Facility): CTDIvol = ( 10.01 ) mGy, DLP = ( 547.91 ) mGycm COMPARISON: Prior study dated: 05/24/2023 FINDINGS: LOWER CHEST: Lung bases are clear. No cardiomegaly or pericardial effusion. LIVER: Hepatomegaly and severe hepatic steatosis. No focal mass. GALLBLADDER AND BILIARY TREE: The distended gallbladder without definite gallstones. No gallbladder distension or wall edema. No intra- or extrahepatic biliary ductal dilation. PANCREAS: No focal cystic or solid mass. SPLEEN: Normal size without focal cystic or solid mass. ADRENAL GLANDS: No nodules. KIDNEYS AND URETERS: Nonspecific mild perinephric stranding. No hydronephrosis. PERITONEUM: No ascites or free air. No other fluid collection. BOWEL: Small hiatal hernia is again seen. Normal caliber small bowel loops. Persistent thickening with adjacent inflammatory changes and stranding of the sigmoid colon consistent acute diverticulitis. Adjacent small pockets of air (axial images 118-120, series 2) could be due to contained perforation. Underlying mass cannot be excluded. No definite drainable abscess. The appendix appears to be unremarkable. LYMPH NODES: No enlarged mesenteric or retroperitoneal lymph nodes. Series 2. VESSELS: Aorta is non-dilated. URINARY BLADDER: The bladder is not well distended. REPRODUCTIVE ORGANS: No pelvic masses. ABDOMINAL WALL: Small bilateral inguinal hernias containing fat. BONES: No lytic or blastic abnormality. CT/Abdomen/Pel W ORAL Cont Only IMPRESSION: Diffuse thickening of the sigmoid colon with pericolonic stranding and inflammatory changes consistent with acute diverticulitis with probably contained perforation. No evidence of drainable abscess. Hepatomegaly and hepatic steatosis. Small hiatal hernia. Electronically Signed: Nithin Robles MD at 13:22 EST ,
[2023-05-26] MEDS: Phenol/Sodium Phenolate 180ML 3 SPRAY MUCOUS MEM (10:25)
--- NOTE | 2023-05-26 11:30 | PCM.PN.SRG ---
Subjective Subjective Patient was seen during AM rounds and again in the afternoon. He reports improvement of his pain. He also reported improvement in his nausea, however, he describes difficulty still with his diet on the account of his sore throat. Objective Data Objective Data Vital Signs: Vital Signs Temp Pulse Resp BP Pulse Ox O2 Del Method 98.6 F 102 H 16 155/93 H 99 Room Air 05/26/23 05:51 05/26/23 10:29 05/26/23 10:29 05/26/23 10:29 05/26/23 10:29 05/26/23 10:29 Oxygen Delivery Method Room Air Weight: 179 lb 7.3 oz Body Mass Index (BMI) 27.3 Intake & Output: Intake and Output for Last 24 Hours 05/24/23 05/25/23 05/26/23 23:59 23:59 23:59 Intake Total 1400 / 1400 1600 / 1600 100 / 100 Output Total 200 / 200 451 / 451 0 / 0 Balance 1200 / 1200 1149 / 1149 100 / 100 Medical Nutrition Assessment Dietitian: Malnutrition Criteria Met Start: 05/25/23 15:15 Freq: Status: Active Protocol: Document 05/25/23 15:15 AG (Rec: 05/25/23 15:15 AG Desktop) Nutrition Malnutrition Evidence of Malnutrition Exists Yes Malnutrition (severe): Acute Illness/Injury Evidenced By Suboptimal Energy Intake ( Severe),Weight Loss (Severe) Clinical Problem Acute Disease or Injury Related Malnutrition Etiology severe, acute malnutrition related to inadequate energy intake w/ GI dysfunction Signs/Symptoms as evidenced by unintentional 4% wt loss < 1 week, estimated PO intake meeting <50% of estimated energy needs > 5 days Status Active Problem Recommendation Dietitian Recommendations/Changes continue renal diet as tolerated; consider fiber restriction pending further GI workup, determination of etiology re: abd pain. Lab / Micro Data 05/25/23 10:10 05/25/23 04:17 Micro: Microbiology 05/25/23 15:26 Stool Stool Lactoferrin - Final 05/25/23 15:26 Stool Enteric Bacteriology - Final 05/25/23 15:26 Stool Stool Occult Blood (NAVEEN) - Final Occult Blood Positive Physical Exam Const oriented x3 and no apparent distress Resp normal respiratory effort GI GI Narrative: Nondistended, soft, tender to palpation primarily in the right lower quadrant rated 5 out of 10) Assessment & Plan Assessment/Plan (1) Abdominal pain: QUALIFIERS: Abdominal location: right lower quadrant Qualified Code(s): R10.31 - Right lower quadrant pain (2) Intractable nausea and vomiting: PLAN: Plan Patient is hospital day 2 for admission for intractable nausea and vomiting as well as right lower quadrant abdominal pain. CT imaging is concerning for acute diverticulitis, however, his nausea and vomiting does not seem to fit with this diagnosis. I thus requested enteric pathogen panel but this appears to be negative apart from presence of stool lactoferrin. It is possible that patient simply became dehydrated and this perpetuated this symptom. To facilitate dietary tolerance I have ordered him some Chloraseptic spray. I also obtained a repeat CT scan with oral and per rectal contrast. This study shows a thickened colon wall?particularly at the level of the sigmoid colon?and according to radiology is suggestive of possible complicated diverticulitis. I do not identify any large pericolic air pockets or fluid collections. Therefore this would appear to represent a case of recurrent diverticulitis with possible perforation. Patient is only mildly tender with palpation and therefore I would recommend return to a liquid diet. Will continue IV antibiotics for now but if patient is better able to tolerate a diet could then consider transition to oral antibiotics for a full course duration of 14 days. I would then like to follow-up with patient as an outpatient to complete a colonoscopy in approximately 6 weeks. I have shared with Mr. Ulloa that he may require a segmental colectomy if he has interest in pursuing evaluation for kidney transplant. He appears taken off guard by this report but states he will give it some consideration. Dr. Toledo will be covering over the weekend. Neftali Abraham MD General Surgery Endocrine Surgery Pager: [facility] [address] [place] [address], [address] [place] [address] Office: [phone] Charges/Coding Visit Charges Inpatient E&M: 42754 Subs Hosp L2
--- NOTE | 2023-05-26 11:52 | PCM.PN.REN ---
Subjective Subjective Resting in bed, just finished hemodialysis. Reports feeling better overall. Denies any cramping during dialysis today. Objective Data Objective Data Vital Signs: Vital Signs Temp Pulse Resp BP Pulse Ox O2 Del Method 98.6 F 96 20 H 152/96 H 98 Room Air 05/26/23 05:51 05/26/23 11:32 05/26/23 11:32 05/26/23 11:32 05/26/23 11:32 05/26/23 11:32 Oxygen Delivery Method Room Air Weight: 81.4 kg Body Mass Index (BMI) 27.3 Intake & Output: Intake and Output for Last 24 Hours 05/24/23 05/25/23 05/26/23 23:59 23:59 23:59 Intake Total 1400 / 1400 1600 / 1600 100 / 100 Output Total 200 / 200 451 / 451 1100 / 1100 Balance 1200 / 1200 1149 / 1149 -1000 / -1000 Medical Nutrition Assessment Dietitian: Malnutrition Criteria Met Start: 05/25/23 15:15 Freq: Status: Active Protocol: Document 05/25/23 15:15 AG (Rec: 05/25/23 15:15 AG Desktop) Nutrition Malnutrition Evidence of Malnutrition Exists Yes Malnutrition (severe): Acute Illness/Injury Evidenced By Suboptimal Energy Intake ( Severe),Weight Loss (Severe) Clinical Problem Acute Disease or Injury Related Malnutrition Etiology severe, acute malnutrition related to inadequate energy intake w/ GI dysfunction Signs/Symptoms as evidenced by unintentional 4% wt loss < 1 week, estimated PO intake meeting <50% of estimated energy needs > 5 days Status Active Problem Recommendation Dietitian Recommendations/Changes continue renal diet as tolerated; consider fiber restriction pending further GI workup, determination of etiology re: abd pain. Lab / Micro Data 05/25/23 10:10 05/25/23 04:17 Micro: Microbiology 05/25/23 15:26 Stool Stool Lactoferrin - Final 05/25/23 15:26 Stool Enteric Bacteriology - Final 05/25/23 15:26 Stool Stool Occult Blood (NAVEEN) - Final Occult Blood Positive Physical Exam Narrative A&O x3, no acute distress S1, S2, RRR Lung sounds clear anteriorly and posteriorly Abdomen soft, mild tenderness upon palpation No edema AV fistula left arm positive thrill and bruit Assessment & Plan Assessment/Plan (1) Dependent on hemodialysis: PLAN: - ESRD on HD Monday. Patient underwent hemodialysis today with around 1.5 L fluid removal. Likely next dialysis will be on Monday. Patient will have lowered dry weight - HTN; bps acceptable on clonidine, hydralazine, labetolol. Should see improvement in BPs with fluid removal with dialysis - anemia of chronic disease; last hgb 9.2. Patient receives MICHELLE and IV iron at dialysis - Intractable nausea and vomiting/diverticulitis/abdominal pain. Surgery team following. On IV cipro/flagyl
[2023-05-26] MEDS: Doxepin Hydrochloride 10 MG Capsule PO (13:21)
[2023-05-26] MEDS: SEVELAMER CARBONATE 800 MG TABLET PO ×2 (13:21→18:20)
--- NOTE | 2023-05-26 13:39 | NURSING ---
computer issue. awaiting COW, meds manually charted
[2023-05-26] MEDS: Ciprofloxacin 400 MG/200 ML BAG 200 MG IV (17:21)
--- NOTE | 2023-05-26 20:46 | PN.HOSP_ITS ---
Reason for Visit Reason for Visit: Diagnoses Dehydration (05/24/23) Acidosis, unspecified (05/24/23) Diverticulitis of intestine, part unspecified, without perforation or abscess without bleeding (05/24/23) Hematemesis (05/24/23) Right lower quadrant pain (05/24/23) Unspecified abdominal pain (05/24/23) Nausea with vomiting, unspecified (05/24/23) Dependence on renal dialysis (05/24/23) Subjective Subjective Patient was seen and examined today, I briefly talked with general surgery about his care, he underwent a CT scan of the abdomen with contrast today, it showed diffuse thickening of the sigmoid colon with pericolic stranding and inflam matory changes consistent with acute diverticulitis with probably contained perforation. General surgery has placed the patient on a full liquid diet, patient did not have any vomiting today. Patient was dialyzed today. Objective Data Objective Data Vital Signs: Vital Signs Temp Pulse Resp BP Pulse Ox O2 Del Method 99.6 F H 107 H 16 145/90 H 98 Room Air 05/26/23 18:18 05/26/23 18:20 05/26/23 18:18 05/26/23 18:20 05/26/23 18:18 05/26/23 18:18 Oxygen Delivery Method Room Air Weight: 81.4 kg Body Mass Index (BMI) 27.3 Intake & Output: Intake and Output for Last 24 Hours 05/24/23 05/25/23 05/26/23 23:59 23:59 23:59 Intake Total 1400 / 1400 1600 / 1600 400 / 400 Output Total 200 / 200 451 / 451 1100 / 1100 Balance 1200 / 1200 1149 / 1149 -700 / -700 Medical Nutrition Assessment Dietitian: Malnutrition Criteria Met Start: 05/25/23 15:15 Freq: Status: Active Protocol: Document 05/25/23 15:15 AG (Rec: 05/25/23 15:15 AG Desktop) Nutrition Malnutrition Evidence of Malnutrition Exists Yes Malnutrition (severe): Acute Illness/Injury Evidenced By Suboptimal Energy Intake ( Severe),Weight Loss (Severe) Clinical Problem Acute Disease or Injury Related Malnutrition Etiology severe, acute malnutrition related to inadequate energy intake w/ GI dysfunction Signs/Symptoms as evidenced by unintentional 4% wt loss < 1 week, estimated PO intake meeting <50% of estimated energy needs > 5 days Status Active Problem Recommendation Dietitian Recommendations/Changes continue renal diet as tolerated; consider fiber restriction pending further GI workup, determination of etiology re: abd pain. Lab / Micro Data 05/25/23 10:10 05/25/23 04:17 Micro: Microbiology 05/25/23 15:26 Stool Stool Lactoferrin - Final 05/25/23 15:26 Stool Enteric Bacteriology - Final 05/25/23 15:26 Stool Stool Occult Blood (NAVEEN) - Final Occult Blood Positive Radiography Diagnostic Testing: Radiology Impression Abdomen CT 05/26/23 08:39 IMPRESSION: Diffuse thickening of the sigmoid colon with pericolonic stranding and inflammatory changes consistent with acute diverticulitis with probably contained perforation. No evidence of drainable abscess. Hepatomegaly and hepatic steatosis. Small hiatal hernia. Electronically Signed: Nithin Robles MD at 13:22 EST , Physical Exam Const alert, oriented x3, no apparent distress and healthy appearing General Appearance: cooperative, well kempt and well developed Orientation / Consciousness: awake, oriented to person, oriented to place and oriented to time HEENT normocephalic, head/scalp atraumatic and moist oral mucous membranes Eyes PERRL, EOMs intact bilaterally and conjunctivae normal Neck supple, no JVD, thyroid normal and no carotid bruits General: trachea midline Resp normal respiratory effort, no retractions, no use of accessory muscles and clear to auscultation bilaterally Auscultation: Negative for rales, rhonchi or wheezes Cardio regular rate, regular rhythm, S1 normal heart sound, S2 normal heart sound, no murmurs, no rub and no gallops GI normal to inspection, nondistended, normoactive bowel sounds, soft to palpation and non-distended GI Narrative: Patient has some mild abdominal tenderness to palpation in the mid abdominal quadrant and the right lateral abdominal quadrant Extremity no clubbing, cyanosis or edema Skin no rashes or lesions noted General Skin Exam: no breakdown Neuro oriented x3, CN's II-XII intact bilaterally, moves all extremities, no focal motor deficits and no sensory deficits noted Sensorium / Orientation: awake and alert Speech: speech normal Psych affect normal Assessment & Plan Assessment/Plan (1) Intractable nausea and vomiting: PLAN: Plan 1. Intractable nausea and vomiting with hematemesis-etiology unclear at this point, gastroenterology will see the patient in consultation, general surgery is also participating in his care, again his dialysis today will be tomorrow. Patient remains on IV PPI. #2 acute diverticulitis with probable contained perforation-patient is on full liquid diet, general surgery is following patient gastroenterology is consulted #3 end-stage renal disease on dialysis-patient will undergo dialysis again tomorrow, nephrology is participating in his care #4 anemia of chronic renal disease-patient does not require transfusion at this time, labs will be monitored as necessary #5 lactic acid elevation-possibly secondary to end-stage renal disease, when admitted, patient had not been dialyzed in several days, patient's last lactic acid was normal Total clinical time spent by myself addressing the patient's medical issues, reviewing all of his data, and collaborating with patient's care team: 25 minutes Charges/Coding Visit Charges Inpatient E&M: 56063 Subs Hosp L1
[2023-05-26] MEDS: HYDROmorphone 0.5 MG/0.5 ML SYRINGE IV (21:54)
[2023-05-26] MEDS: LURASIDONE HCL 20 MG TABLET PO (21:54)
[2023-05-26] MEDS: Nepro with Carbsteady 237 ML Liquid 120 ML PO (21:59)
[2023-05-27 05:35] VITALS: BP 167/93; PULSE 94; RESP 18; TEMP 36.9; O2SAT 95
[2023-05-27 05:41] VITALS: BP 167/93; PULSE 94
[2023-05-27] MEDS: hydrALAZINE 20 MG/ML Vial 10 MG IV (05:41)
[2023-05-27] MEDS: Metoclopramide 10 MG/2 ML Vial 5 MG IV ×4 (05:42→23:45)
[2023-05-27] MEDS: Labetalol (Prefilled) 20 MG/4 ML 40 MG IV (05:43)
[2023-05-27] MEDS: metroNIDAZOLE 500 MG/100 ML BAG 100 MG IV ×3 (05:55→21:48)
[2023-05-27] MEDS: 0.9% Saline Lock 10 ML Syringe IV ×4 (05:56→21:47)
[2023-05-27 09:11] LABS: Anion Gap 6 (5-15); BUN 14 mg/dL (7-18); BUN/Creat Ratio 3.2 RATIO (10-20); Calcium,Total 7.8 mg/dL (8.5-10.1); Chloride 104 mmol/L (98-107); Creatinine, Serum 4.35 mg/dL (0.70-1.30); EST Glomerular Filtration Rate 17 mL/min (>60); Est Glom Filt Rate - Afr Amer 21 mL/min (>60); Estimated Creatinine Clearance 24.02 ml/min; Glucose 109 mg/dL (74-106); Potassium 2.8 mmol/L (3.5-5.1); Sodium Level 136 mmol/L (136-145)
[2023-05-27] MEDS: Doxepin Hydrochloride 10 MG Capsule PO (09:29)
[2023-05-27] MEDS: SEVELAMER CARBONATE 800 MG TABLET PO ×3 (09:29→18:03)
[2023-05-27] MEDS: Nepro with Carbsteady 237 ML Liquid 120 ML PO ×4 (09:32→21:46)
--- NOTE | 2023-05-27 09:32 | PN.SURG_ITS ---
Subjective Subjective Patient still states he has been having some right lower quadrant pain with palpation only needed pain meds once yesterday, tolerated full liquids Objective Data Objective Data Vital Signs: Vital Signs Temp Pulse Resp BP Pulse Ox O2 Del Method 98.5 F 94 18 167/93 H 95 Room Air 05/27/23 05:35 05/27/23 05:41 05/27/23 05:35 05/27/23 05:41 05/27/23 05:35 05/27/23 09:22 Oxygen Delivery Method Room Air Weight: 179 lb 7.3 oz Body Mass Index (BMI) 27.3 Intake & Output: Intake and Output for Last 24 Hours 05/25/23 05/26/23 05/27/23 23:59 23:59 23:59 Intake Total 1600 / 1600 500 / 500 220 / 220 Output Total 451 / 451 1350 / 1350 Balance 1149 / 1149 -850 / -850 220 / 220 Medical Nutrition Assessment Dietitian: Malnutrition Criteria Met Start: 05/25/23 15:15 Freq: Status: Active Protocol: Document 05/25/23 15:15 AG (Rec: 05/25/23 15:15 AG Desktop) Nutrition Malnutrition Evidence of Malnutrition Exists Yes Malnutrition (severe): Acute Illness/Injury Evidenced By Suboptimal Energy Intake ( Severe),Weight Loss (Severe) Clinical Problem Acute Disease or Injury Related Malnutrition Etiology severe, acute malnutrition related to inadequate energy intake w/ GI dysfunction Signs/Symptoms as evidenced by unintentional 4% wt loss < 1 week, estimated PO intake meeting <50% of estimated energy needs > 5 days Status Active Problem Recommendation Dietitian Recommendations/Changes continue renal diet as tolerated; consider fiber restriction pending further GI workup, determination of etiology re: abd pain. Lab / Micro Data 05/25/23 10:10 05/27/23 08:47 Labs: Laboratory Results - last 24 hr 05/27/23 08:47: Sodium 136, Potassium 2.8 L, Chloride 104, Carbon Dioxide 26.0, Anion Gap 6, BUN 14, Creatinine 4.35 H, Estim Creat Clear Calc 24.02, Est GFR (MDRD) Af Amer 21 L, Est GFR (MDRD) Non-Af 17 L, BUN/Creatinine Ratio 3.2 L, Glucose 109 H, Calcium 7.8 L Micro: Microbiology 05/25/23 15:26 Stool Stool Lactoferrin - Final 05/25/23 15:26 Stool Enteric Bacteriology - Final 05/25/23 15:26 Stool Stool Occult Blood (NAVEEN) - Final Occult Blood Positive Radiography Diagnostic Testing: Radiology Impression Abdomen CT 05/26/23 08:39 IMPRESSION: Diffuse thickening of the sigmoid colon with pericolonic stranding and inflammatory changes consistent with acute diverticulitis with probably contained perforation. No evidence of drainable abscess. Hepatomegaly and hepatic steatosis. Small hiatal hernia. Electronically Signed: Nithin Robles MD at 13:22 EST , Physical Exam Const oriented x3 and no apparent distress Resp normal respiratory effort GI GI Narrative: Nondistended, soft, tender to palpation primarily in the right lower quadrant (rated 5 out of 10) Assessment & Plan Assessment/Plan (1) Abdominal pain: QUALIFIERS: Abdominal location: right lower quadrant Qualified Code(s): R10.31 - Right lower quadrant pain (2) Intractable nausea and vomiting: (3) Diverticulitis: PLAN: Plan Okay for renal/low fiber diet today Would keep on IV antibiotics today possible DC tomorrow if pain improved, typically would not send patient with pain meds home plan for follow-up after d/c with Dr. Abraham as outpatient to complete a colonoscopy in approximately 6 weeks Ariella Toledo M.D. Pager: [phone] [facility] [address] [place] [address], [facility], [address] [place] [address] Office: [phone] Charges/Coding Visit Charges Inpatient E&M: 80191 Subs Hosp L2
--- NOTE | 2023-05-27 09:38 | CASEMGMT ---
Social Work SW met w/pt, provided resources as pt had mentioned concern to CM about paying rent. SW gave pt information for [employer], [employer], [employer], and food resources. SW advised pt he can call [employer] as well for additional resources. SW remains available for any additional resources/social service needs. OKSANA Sol
[2023-05-27 12:10] VITALS: BP 157/102; PULSE 101; RESP 16; TEMP 38.1; O2SAT 97
[2023-05-27] MEDS: Potassium Chloride Oral Tablet 20 MEQ 40 MEQ PO (12:16)
[2023-05-27] MEDS: oxyCODONE 5 MG Tablet PO ×2 (12:17→21:47)
--- NOTE | 2023-05-27 13:07 | PCM.PN.HOSP ---
Reason for Visit Reason for Visit: Diagnoses Dehydration (05/24/23) Acidosis, unspecified (05/24/23) Diverticulitis of intestine, part unspecified, without perforation or abscess without bleeding (05/24/23) Hematemesis (05/24/23) Right lower quadrant pain (05/24/23) Unspecified abdominal pain (05/24/23) Nausea with vomiting, unspecified (05/24/23) Dependence on renal dialysis (05/24/23) Subjective Subjective Patient seen at bedside this morning. Sitting up comfortably in bed, conversing normally, no acute distress. Breathing well on room air, no increased work of breathing noted. Patient states he had 1 small episode of nausea with vomiting overnight, no issues morning. Took IV Dilaudid once yesterday for abdominal pain, states the pain has been well-controlled without pain medications overnight and this morning. Diet was advanced morning and he tolerated breakfast without issue. He is hoping to go home soon. No other acute concerns morning. Objective Data Objective Data Vital Signs: Vital Signs Temp Pulse Resp BP Pulse Ox O2 Del Method 100.5 F H 101 H 16 157/102 H 97 Room Air 05/27/23 12:10 05/27/23 12:10 05/27/23 12:10 05/27/23 12:10 05/27/23 12:10 05/27/23 12:10 Oxygen Delivery Method Room Air Weight: 81.4 kg Body Mass Index (BMI) 27.3 Intake & Output: Intake and Output for Last 24 Hours 05/25/23 05/26/23 05/27/23 23:59 23:59 23:59 Intake Total 1600 / 1600 500 / 500 220 / 220 Output Total 451 / 451 1350 / 1350 250 / 250 Balance 1149 / 1149 -850 / -850 -30 / -30 Medical Nutrition Assessment Dietitian: Malnutrition Criteria Met Start: 05/25/23 15:15 Freq: Status: Active Protocol: Document 05/25/23 15:15 AG (Rec: 05/25/23 15:15 AG Desktop) Nutrition Malnutrition Evidence of Malnutrition Exists Yes Malnutrition (severe): Acute Illness/Injury Evidenced By Suboptimal Energy Intake ( Severe),Weight Loss (Severe) Clinical Problem Acute Disease or Injury Related Malnutrition Etiology severe, acute malnutrition related to inadequate energy intake w/ GI dysfunction Signs/Symptoms as evidenced by unintentional 4% wt loss < 1 week, estimated PO intake meeting <50% of estimated energy needs > 5 days Status Active Problem Recommendation Dietitian Recommendations/Changes continue renal diet as tolerated; consider fiber restriction pending further GI workup, determination of etiology re: abd pain. Lab / Micro Data 05/25/23 10:10 05/27/23 08:47 Labs: Laboratory Results - last 24 hr 05/27/23 08:47: Sodium 136, Potassium 2.8 L, Chloride 104, Carbon Dioxide 26.0, Anion Gap 6, BUN 14, Creatinine 4.35 H, Estim Creat Clear Calc 24.02, Est GFR (MDRD) Af Amer 21 L, Est GFR (MDRD) Non-Af 17 L, BUN/Creatinine Ratio 3.2 L, Glucose 109 H, Calcium 7.8 L Micro: Microbiology 05/25/23 15:26 Stool Stool Lactoferrin - Final 05/25/23 15:26 Stool Enteric Bacteriology - Final 05/25/23 15:26 Stool Stool Occult Blood (NAVEEN) - Final Occult Blood Positive Radiography Diagnostic Testing: Radiology Impression Abdomen CT 05/26/23 08:39 IMPRESSION: Diffuse thickening of the sigmoid colon with pericolonic stranding and inflammatory changes consistent with acute diverticulitis with probably contained perforation. No evidence of drainable abscess. Hepatomegaly and hepatic steatosis. Small hiatal hernia. Electronically Signed: Nithin Robles MD at 13:22 EST , Physical Exam Const alert, oriented x3, no apparent distress, average body habitus, healthy appearing and well nourished Constitutional Narrative: Pleasant young male, sitting up comfortably in bed, conversing normally, no acute distress. General Appearance: cooperative, comfortable, well kempt and well developed HEENT normocephalic, head/scalp atraumatic, hearing grossly normal bilaterally, nasal mucous membranes and turbinates normal and moist oral mucous membranes Eyes PERRL, EOMs intact bilaterally and conjunctivae normal Neck full ROM, no lymphadenopathy and supple Lymph Lymphatic: no lymphadenopathy noted Chest inspection of chest normal Resp normal respiratory effort, normal air movement, no use of accessory muscles and clear to auscultation bilaterally Cardio regular rate, regular rhythm, no murmurs and peripheral pulses 2+ throughout GI GI Narrative: Mild tenderness palpation in lower abdomen. Otherwise nondistended and soft palpation. Back/Spine normal ROM Extremity normal to inspection, full ROM and no pedal edema Skin no rashes or lesions noted Neuro no focal motor deficits and no sensory deficits noted Speech: speech normal Psych mental status grossly normal Assessment & Plan Assessment/Plan (1) Intractable nausea and vomiting: (2) Abdominal pain: QUALIFIERS: Abdominal location: right lower quadrant Qualified Code(s): R10.31 - Right lower quadrant pain (3) Diverticulitis: PLAN: Plan Patient is a 28-year-old male who presented to [facility] ED on 05/24/2023 with intractable nausea and vomiting. 1. Intractable nausea and vomiting with mild hematemesis, improving ? Suspect nausea and vomiting are primarily secondary to acute diverticulitis noted below. Suspect mild hematemesis was due to Radha-Disla tear. Hemoglobin has remained stable, nausea and vomiting improving with treatment of diverticulitis as noted below. Transitioned from IV PPI to p.o. PPI on 05/27. Advancing diet per surgery recommendations as noted below. Continue Reglan and Compazine as needed for symptomatic management. 2. Acute diverticulitis with abdominal pain ? General surgery following. CT abdomen pelvis on admit showed recrudescent sigmoid diverticulitis. Patient had difficulty tolerating p.o. intake, repeat CT abdomen pelvis with oral and rectal contrast showed thickened colon wall at level sigmoid colon suggestive of possible complicated diverticulitis. Improving, advanced to regular diet on 05/27 and tolerating well. Continue IV antibiotics today, plan for p.o. antibiotics on discharge. Will need outpatient colonoscopy about 6 weeks after discharge. 3. ESRD on HD ? Nephrology following. Does outpatient HD on MWF schedule. Last HD session on Friday 05/26, patient tolerated without issue. Next HD session planned for Monday 05/29. 4. Hypertension ? Home regimen of amlodipine, carvedilol, clonidine patch, doxazosin. Required IV labetalol and IV hydralazine in addition to clonidine patch while NPO during this admission. Transitioned back to home regimen on 05/27. 5. Elevated lactic acid, resolved ? Lactate 12.5 on admit. Likely secondary to ESRD, patient had not been dialyzed for several days prior to admission. Resolved after HD session on admission. Chronic medical conditions: ? Chronic anemia secondary to renal disease: Hemoglobin 10.5 on admit, baseline hemoglobin 9-10. Stable at baseline during admission. Continue MICHELLE and IV iron with dialysis. ? GERD: Continue home PPI. ? Bipolar disorder: Continue home lurasidone and doxepin. ? Chronic elevated transaminases: Stable, continue outpatient follow-up with GI. DVT prophylaxis: Heparin subcu CODE STATUS: Full code, verified Expected disposition: Home, 1 to 2 days Total clinical time spent by myself addressing the patient's medical issues, reviewing all the data, and collaborating with patient's care team: 35 minutes. Charges/Coding Visit Charges Inpatient E&M: 66944 Subs Hosp L2
[2023-05-27 13:43] VITALS: TEMP 37.5
[2023-05-27 15:46] VITALS: BP 143/95; PULSE 105; RESP 16; TEMP 37.8; O2SAT 99
[2023-05-27] MEDS: Ciprofloxacin 400 MG/200 ML BAG 200 MG IV (15:49)
[2023-05-27 18:07] LABS: Giardia Lamblia, Stool EIA Negative (Negative)
[2023-05-27 21:38] VITALS: BP 157/99; PULSE 110; RESP 16; TEMP 37.7; O2SAT 97
[2023-05-27] MEDS: Heparin Injection (Vial) 5,000 UNIT/ML VIAL 5000 UNIT SC (21:46)
[2023-05-27] MEDS: amLODIPine 10 MG Tablet PO (21:47)
[2023-05-27] MEDS: LURASIDONE HCL 20 MG TABLET PO (21:47)
[2023-05-27] MEDS: Carvedilol 6.25 MG Tablet PO (21:47)
[2023-05-28 03:30] VITALS: BP 136/97; PULSE 95; RESP 16; TEMP 37.5; O2SAT 98
--- NOTE | 2023-05-28 05:19 | PCM.PN.SRG ---
Subjective Subjective Patient states overall the right lower quadrant pain is getting better rates it at 3?4/10 but is still needing occasional pain meds, patient is having liquid stool tolerating low fiber diet Objective Data Objective Data Vital Signs: Vital Signs Temp Pulse Resp BP Pulse Ox O2 Del Method 99.5 F H 95 16 136/97 H 98 Room Air 05/28/23 03:30 05/28/23 03:30 05/28/23 03:30 05/28/23 03:30 05/28/23 03:30 05/28/23 03:30 Oxygen Delivery Method Room Air Weight: 179 lb 7.3 oz Body Mass Index (BMI) 27.3 Intake & Output: Intake and Output for Last 24 Hours 05/26/23 05/27/23 05/28/23 23:59 23:59 23:59 Intake Total 500 / 500 620 / 620 Output Total 1350 / 1350 475 / 475 Balance -850 / -850 145 / 145 Medical Nutrition Assessment Dietitian: Malnutrition Criteria Met Start: 05/25/23 15:15 Freq: Status: Active Protocol: Document 05/25/23 15:15 AG (Rec: 05/25/23 15:15 AG Desktop) Nutrition Malnutrition Evidence of Malnutrition Exists Yes Malnutrition (severe): Acute Illness/Injury Evidenced By Suboptimal Energy Intake ( Severe),Weight Loss (Severe) Clinical Problem Acute Disease or Injury Related Malnutrition Etiology severe, acute malnutrition related to inadequate energy intake w/ GI dysfunction Signs/Symptoms as evidenced by unintentional 4% wt loss < 1 week, estimated PO intake meeting <50% of estimated energy needs > 5 days Status Active Problem Recommendation Dietitian Recommendations/Changes continue renal diet as tolerated; consider fiber restriction pending further GI workup, determination of etiology re: abd pain. Lab / Micro Data 05/25/23 10:10 05/27/23 08:47 Labs: Laboratory Results - last 24 hr 05/25/23 15:26: Stl Giardia Antigen Negative 05/27/23 08:47: Sodium 136, Potassium 2.8 L, Chloride 104, Carbon Dioxide 26.0, Anion Gap 6, BUN 14, Creatinine 4.35 H, Estim Creat Clear Calc 24.02, Est GFR (MDRD) Af Amer 21 L, Est GFR (MDRD) Non-Af 17 L, BUN/Creatinine Ratio 3.2 L, Glucose 109 H, Calcium 7.8 L Micro: Microbiology 05/25/23 15:26 Stool Stool Lactoferrin - Final 05/25/23 15:26 Stool Enteric Bacteriology - Final 05/25/23 15:26 Stool Stool Occult Blood (NAVEEN) - Final Occult Blood Positive Physical Exam Const oriented x3 and no apparent distress Resp normal respiratory effort GI GI Narrative: Nondistended, soft, tender to palpation in the right lower quadrant (rated 6 out of 10?otherwise 3?4/10) Assessment & Plan Assessment/Plan (1) Abdominal pain: QUALIFIERS: Abdominal location: right lower quadrant Qualified Code(s): R10.31 - Right lower quadrant pain (2) Intractable nausea and vomiting: (3) Diverticulitis: PLAN: Plan Continue renal/low fiber diet today Would keep on IV antibiotics today-- possible DC tomorrow if pain improved, typically would not send patient with pain meds home and patient is still taking occasional pain meds plan for follow-up after d/c with Dr. Abraham as outpatient to complete a colonoscopy in approximately 6 weeks Ariella Toledo M.D. Pager: [phone] [facility] [address] [place] [address], [address] [place] [address] Office: [phone] Charges/Coding Visit Charges Inpatient E&M: 19750 Subs Hosp L2
[2023-05-28] MEDS: Calcium Carbonate 500 MG Tablet 1000 MG PO (05:59)
[2023-05-28] MEDS: metroNIDAZOLE 500 MG/100 ML BAG 100 MG IV ×3 (05:59→21:23)
[2023-05-28] MEDS: Metoclopramide 10 MG/2 ML Vial 5 MG IV (06:00)
[2023-05-28] MEDS: 0.9% Saline Lock 10 ML Syringe IV (06:00)
[2023-05-28 06:25] LABS: Anion Gap 6 (5-15); BUN 19 mg/dL (7-18); BUN/Creat Ratio 3.9 RATIO (10-20); Calcium,Total 7.4 mg/dL (8.5-10.1); Chloride 108 mmol/L (98-107); Creatinine, Serum 4.82 mg/dL (0.70-1.30); EST Glomerular Filtration Rate 15 mL/min (>60); Est Glom Filt Rate - Afr Amer 18 mL/min (>60); Estimated Creatinine Clearance 21.68 ml/min; Glucose 100 mg/dL (74-106); Potassium 3.3 mmol/L (3.5-5.1); Sodium Level 139 mmol/L (136-145)
[2023-05-28] MEDS: Heparin Injection (Vial) 5,000 UNIT/ML VIAL 5000 UNIT SC ×2 (08:32→21:29)
[2023-05-28] MEDS: Carvedilol 6.25 MG Tablet PO ×2 (08:32→21:22)
[2023-05-28] MEDS: SEVELAMER CARBONATE 800 MG TABLET PO ×3 (08:32→16:18)
[2023-05-28] MEDS: amLODIPine 10 MG Tablet PO ×2 (08:32→21:22)
[2023-05-28] MEDS: Doxepin Hydrochloride 10 MG Capsule PO (08:32)
[2023-05-28] MEDS: Aspirin E.C. 81 MG Tablet PO (08:32)
[2023-05-28] MEDS: Pantoprazole Sodium 40 MG Tablet PO (08:32)
[2023-05-28 09:30] VITALS: BP 134/81; PULSE 97; RESP 16; TEMP 36.9; O2SAT 97
--- NOTE | 2023-05-28 12:05 | PN.HOSP_ITS ---
Reason for Visit Reason for Visit: Diagnoses Dehydration (05/24/23) Acidosis, unspecified (05/24/23) Diverticulitis of intestine, part unspecified, without perforation or abscess without bleeding (05/24/23) Hematemesis (05/24/23) Right lower quadrant pain (05/24/23) Unspecified abdominal pain (05/24/23) Nausea with vomiting, unspecified (05/24/23) Dependence on renal dialysis (05/24/23) Subjective Subjective Patient seen at bedside this morning. Was sleeping on my arrival to the room. States he has had intermittent mild lower abdominal pain overnight in this morning, which continues to improve from previous days. Continue to have loose stools, last episode this morning. He otherwise denies any fevers or chills. Denies any other pain or discomfort today. No other acute concerns. Objective Data Objective Data Vital Signs: Vital Signs Temp Pulse Resp BP Pulse Ox O2 Del Method 98.5 F 97 16 134/81 H 97 Room Air 05/28/23 09:30 05/28/23 09:30 05/28/23 09:30 05/28/23 09:30 05/28/23 09:30 05/28/23 09:30 Oxygen Delivery Method Room Air Weight: 81.4 kg Body Mass Index (BMI) 27.3 Intake & Output: Intake and Output for Last 24 Hours 05/26/23 05/27/23 05/28/23 23:59 23:59 23:59 Intake Total 500 / 500 620 / 620 400 / 400 Output Total 1350 / 1350 475 / 475 750 / 750 Balance -850 / -850 145 / 145 -350 / -350 Medical Nutrition Assessment Dietitian: Malnutrition Criteria Met Start: 05/25/23 15:15 Freq: Status: Active Protocol: Document 05/25/23 15:15 AG (Rec: 05/25/23 15:15 AG Desktop) Nutrition Malnutrition Evidence of Malnutrition Exists Yes Malnutrition (severe): Acute Illness/Injury Evidenced By Suboptimal Energy Intake ( Severe),Weight Loss (Severe) Clinical Problem Acute Disease or Injury Related Malnutrition Etiology severe, acute malnutrition related to inadequate energy intake w/ GI dysfunction Signs/Symptoms as evidenced by unintentional 4% wt loss < 1 week, estimated PO intake meeting <50% of estimated energy needs > 5 days Status Active Problem Recommendation Dietitian Recommendations/Changes continue renal diet as tolerated; consider fiber restriction pending further GI workup, determination of etiology re: abd pain. Lab / Micro Data 05/25/23 10:10 05/28/23 05:17 Labs: Laboratory Results - last 24 hr 05/25/23 15:26: Stl Giardia Antigen Negative 05/28/23 05:17: Sodium 139, Potassium 3.3 L, Chloride 108 H, Carbon Dioxide 25.0, Anion Gap 6, BUN 19 H, Creatinine 4.82 H, Estim Creat Clear Calc 21.68, Est GFR (MDRD) Af Amer 18 L, Est GFR (MDRD) Non-Af 15 L, BUN/Creatinine Ratio 3.9 L, Glucose 100, Calcium 7.4 L Micro: Microbiology 05/25/23 15:26 Stool Stool Lactoferrin - Final 05/25/23 15:26 Stool Enteric Bacteriology - Final 05/25/23 15:26 Stool Stool Occult Blood (NAVEEN) - Final Occult Blood Positive Physical Exam Const alert, oriented x3, no apparent distress, average body habitus, healthy appearing and well nourished Constitutional Narrative: Pleasant young male, sitting up comfortably in bed, conversing normally, no acute distress. General Appearance: cooperative, comfortable, well kempt and well developed HEENT normocephalic, head/scalp atraumatic, hearing grossly normal bilaterally, nasal mucous membranes and turbinates normal and moist oral mucous membranes Eyes PERRL, EOMs intact bilaterally and conjunctivae normal Neck full ROM, no lymphadenopathy and supple Lymph Lymphatic: no lymphadenopathy noted Chest inspection of chest normal Resp normal respiratory effort, normal air movement, no use of accessory muscles and clear to auscultation bilaterally Cardio regular rate, regular rhythm, no murmurs and peripheral pulses 2+ throughout GI GI Narrative: Mild tenderness palpation in lower abdomen. Otherwise nondistended and soft palpation. Back/Spine normal ROM Extremity normal to inspection, full ROM and no pedal edema Skin no rashes or lesions noted Neuro no focal motor deficits and no sensory deficits noted Speech: speech normal Psych mental status grossly normal Assessment & Plan Assessment/Plan (1) Intractable nausea and vomiting: (2) Abdominal pain: QUALIFIERS: Abdominal location: right lower quadrant Qualified Code(s): R10.31 - Right lower quadrant pain (3) Diverticulitis: PLAN: Plan Patient is a 28-year-old male who presented to [facility] ED on 05/24/2023 with intractable nausea and vomiting. 1. Acute diverticulitis with abdominal pain CT abdomen pelvis on admit showed recrudescent sigmoid diverticulitis. Patient had difficulty tolerating p.o. intake, repeat CT abdomen pelvis with oral and rectal contrast showed thickened colon wall at level sigmoid colon suggestive of possible complicated diverticulitis. Improving, advanced to regular diet on 05/27 and tolerating well. ? General surgery following. Patient continued to have mild abdominal pain requiring intermittent doses of p.o. oxycodone. Continue IV antibiotics. Per surgery, goal is for patient to have resolution of pain prior to discharge, as IV antibiotics are more effective than p.o. antibiotics for diverticulitis. Once pain-free, will plan to discharge on p.o. ciprofloxacin and Flagyl for 14- day course total. Will need outpatient colonoscopy about 6 weeks post discharge. 2. Intractable nausea and vomiting with mild hematemesis, improving ? Suspect nausea and vomiting are primarily secondary to acute diverticulitis noted below. Suspect mild hematemesis was due to Radha-Disla tear. Hemoglobin has remained stable, nausea and vomiting improving with treatment of diverticulitis as noted below. Transitioned from IV PPI to p.o. PPI on 05/27. Advanced to regular diet on 05/27, patient tolerating well. Continue Compazine as needed for symptomatic management. 3. ESRD on HD ? Nephrology following. Does outpatient HD on [facility] schedule. Last HD session on Friday 05/26, patient tolerated without issue. Next HD session planned for Monday 05/29. 4. Hypertension ? Home regimen of amlodipine, carvedilol, clonidine patch, doxazosin. Required IV labetalol and IV hydralazine in addition to clonidine patch while NPO during this admission. Transitioned back to home regimen on 05/27. 5. Elevated lactic acid, resolved ? Lactate 12.5 on admit. Likely secondary to ESRD, patient had not been dialyzed for several days prior to admission. Resolved after HD session on admission. Chronic medical conditions: ? Chronic anemia secondary to renal disease: Hemoglobin 10.5 on admit, baseline hemoglobin 9-10. Stable at baseline during admission. Continue MICHELLE and IV iron with dialysis. ? GERD: Continue home PPI. ? Bipolar disorder: Continue home lurasidone and doxepin. ? Chronic elevated transaminases: Stable, continue outpatient follow-up with GI. DVT prophylaxis: Heparin subcu CODE STATUS: Full code, verified Expected disposition: Home, 1 to 2 days Total clinical time spent by myself addressing the patient's medical issues, reviewing all the data, and collaborating with patient's care team: 35 minutes. Charges/Coding Visit Charges Inpatient E&M: 87063 Subs Hosp L2
[2023-05-28 15:30] VITALS: BP 143/93; PULSE 94; RESP 18; TEMP 37.2; O2SAT 98
[2023-05-28] MEDS: Ciprofloxacin 400 MG/200 ML BAG 200 MG IV (16:18)
[2023-05-28] MEDS: LURASIDONE HCL 20 MG TABLET PO (21:22)
[2023-05-28 21:30] VITALS: BP 149/90; PULSE 99; RESP 16; TEMP 37.2; O2SAT 99
[2023-05-28] MEDS: Potassium Chloride Oral Tablet 20 MEQ 60 MEQ PO (23:41)
[2023-05-29] VITALS (11 sets, daily range): BP systolic 35–296; BP diastolic 85–103; PULSE 88–97; RESP 14–18; TEMP 36.7–37.1; O2SAT 98–100; BMI 29.6
[2023-05-29 05:04] LABS: Anion Gap 5 (5-15); BUN 22 mg/dL (7-18); BUN/Creat Ratio 4.6 RATIO (10-20); Calcium,Total 7.7 mg/dL (8.5-10.1); Chloride 109 mmol/L (98-107); Creatinine, Serum 4.76 mg/dL (0.70-1.30); EST Glomerular Filtration Rate 15 mL/min (>60); Est Glom Filt Rate - Afr Amer 19 mL/min (>60); Estimated Creatinine Clearance 21.95 ml/min; Glucose 107 mg/dL (74-106); Potassium 3.8 mmol/L (3.5-5.1); Sodium Level 139 mmol/L (136-145)
[2023-05-29] MEDS: metroNIDAZOLE 500 MG/100 ML BAG 100 MG IV (05:06)
--- NOTE | 2023-05-29 07:34 | PCM.PN.SRG ---
Subjective Subjective Patient seen and examined during AM rounds. He is found resting in bed. He is currently undergoing dialysis. He confirms that he is feeling much better. He denies any use of pain medication overnight. He is still having some loose stools. Objective Data Objective Data Vital Signs: Vital Signs Temp Pulse Resp BP Pulse Ox O2 Del Method 98.8 F 93 16 144/85 H 98 Room Air 05/29/23 03:30 05/29/23 03:30 05/29/23 03:30 05/29/23 03:30 05/29/23 03:30 05/29/23 03:30 Oxygen Delivery Method Room Air Weight: 179 lb 7.3 oz Body Mass Index (BMI) 27.3 Intake & Output: Intake and Output for Last 24 Hours 05/27/23 05/28/23 05/29/23 23:59 23:59 23:59 Intake Total 620 / 620 1150 / 1900 1400 / 1400 Output Total 475 / 475 1000 / 1700 1100 / 1100 Balance 145 / 145 150 / 200 300 / 300 Medical Nutrition Assessment Dietitian: Malnutrition Criteria Met Start: 05/25/23 15:15 Freq: Status: Active Protocol: Document 05/25/23 15:15 AG (Rec: 05/25/23 15:15 AG Desktop) Nutrition Malnutrition Evidence of Malnutrition Exists Yes Malnutrition (severe): Acute Illness/Injury Evidenced By Suboptimal Energy Intake ( Severe),Weight Loss (Severe) Clinical Problem Acute Disease or Injury Related Malnutrition Etiology severe, acute malnutrition related to inadequate energy intake w/ GI dysfunction Signs/Symptoms as evidenced by unintentional 4% wt loss < 1 week, estimated PO intake meeting <50% of estimated energy needs > 5 days Status Active Problem Recommendation Dietitian Recommendations/Changes continue renal diet as tolerated; consider fiber restriction pending further GI workup, determination of etiology re: abd pain. Lab / Micro Data 05/25/23 10:10 05/29/23 03:55 Labs: Laboratory Results - last 24 hr 05/29/23 03:55: Sodium 139, Potassium 3.8, Chloride 109 H, Carbon Dioxide 25.0, Anion Gap 5, BUN 22 H, Creatinine 4.76 H, Estim Creat Clear Calc 21.95, Est GFR (MDRD) Af Amer 19 L, Est GFR (MDRD) Non-Af 15 L, BUN/Creatinine Ratio 4.6 L, Glucose 107 H, Calcium 7.7 L Micro: Microbiology 05/25/23 15:26 Stool Stool Lactoferrin - Final 05/25/23 15:26 Stool Enteric Bacteriology - Final 05/25/23 15:26 Stool Stool Occult Blood (NAVEEN) - Final Occult Blood Positive Physical Exam Const oriented x3 and no apparent distress Resp normal respiratory effort GI GI Narrative: Nondistended, soft, nontender to palpation x 4 quadrants Assessment & Plan Assessment/Plan (1) Abdominal pain: QUALIFIERS: Abdominal location: right lower quadrant Qualified Code(s): R10.31 - Right lower quadrant pain (2) Intractable nausea and vomiting: (3) Diverticulitis: PLAN: Plan Continue renal/low fiber diet today (and for 2 weeks upon hospital discharge) Patient cleared to transition to oral antibiotics. If tolerating patient would be cleared from a surgical standpoint for discharge home. Recommend a total course of 14 days?inclusive of IV antibiotic days. Would request outpatient follow-up with surgery. Will then plan for diagnostic colonoscopy 6 weeks following resolution of symptoms. Neftali Abraham MD General Surgery Endocrine Surgery Pager: [facility] [address] [place] [address], [address] [place] [address] Office: [phone] Charges/Coding Visit Charges Inpatient E&M: 49570 Subs Hosp L2
[2023-05-29] MEDS: Aspirin E.C. 81 MG Tablet PO (07:47)
[2023-05-29] MEDS: SEVELAMER CARBONATE 800 MG TABLET PO (07:47)
--- NOTE | 2023-05-29 09:09 | PN.HOSP_ITS ---
Reason for Visit Reason for Visit: Diagnoses Dehydration (05/24/23) Acidosis, unspecified (05/24/23) Diverticulitis of intestine, part unspecified, without perforation or abscess without bleeding (05/24/23) Hematemesis (05/24/23) Right lower quadrant pain (05/24/23) Unspecified abdominal pain (05/24/23) Nausea with vomiting, unspecified (05/24/23) Dependence on renal dialysis (05/24/23) Objective Data Objective Data Vital Signs: Vital Signs Temp Pulse Resp BP Pulse Ox O2 Del Method 98.5 F 94 18 145/90 H 99 Room Air 05/29/23 09:00 05/29/23 09:00 05/29/23 09:00 05/29/23 09:00 05/29/23 09:00 05/29/23 09:00 Oxygen Delivery Method Room Air Weight: 194 lb 14.218 oz Body Mass Index (BMI) 29.6 Intake & Output: Intake and Output for Last 24 Hours 05/27/23 05/28/23 05/29/23 23:59 23:59 23:59 Intake Total 620 / 620 1150 / 1900 1400 / 1400 Output Total 475 / 475 1000 / 1700 1100 / 1100 Balance 145 / 145 150 / 200 300 / 300 Medical Nutrition Assessment Dietitian: Malnutrition Criteria Met Start: 05/25/23 15:15 Freq: Status: Active Protocol: Document 05/25/23 15:15 AG (Rec: 05/25/23 15:15 AG Desktop) Nutrition Malnutrition Evidence of Malnutrition Exists Yes Malnutrition (severe): Acute Illness/Injury Evidenced By Suboptimal Energy Intake ( Severe),Weight Loss (Severe) Clinical Problem Acute Disease or Injury Related Malnutrition Etiology severe, acute malnutrition related to inadequate energy intake w/ GI dysfunction Signs/Symptoms as evidenced by unintentional 4% wt loss < 1 week, estimated PO intake meeting <50% of estimated energy needs > 5 days Status Active Problem Recommendation Dietitian Recommendations/Changes continue renal diet as tolerated; consider fiber restriction pending further GI workup, determination of etiology re: abd pain. Lab / Micro Data 05/25/23 10:10 05/29/23 03:55 Labs: Laboratory Results - last 24 hr 05/29/23 03:55: Sodium 139, Potassium 3.8, Chloride 109 H, Carbon Dioxide 25.0, Anion Gap 5, BUN 22 H, Creatinine 4.76 H, Estim Creat Clear Calc 21.95, Est GFR (MDRD) Af Amer 19 L, Est GFR (MDRD) Non-Af 15 L, BUN/Creatinine Ratio 4.6 L, Glucose 107 H, Calcium 7.7 L Micro: Microbiology 05/25/23 15:26 Stool Stool Lactoferrin - Final 05/25/23 15:26 Stool Enteric Bacteriology - Final 05/25/23 15:26 Stool Stool Occult Blood (NAVEEN) - Final Occult Blood Positive Physical Exam Narrative Patient does not have abdominal pain. General: Alert, Oriented x3, Cooperative. BMI 29.6 kg/m? HEENT: Atraumatic, PERRLA, EOMI, Normocephalic Oral: No Gingival or Mucosal Lesions/ Ulcerations Neck: Supple, No JVD, Negative Carotid Bruits Lungs: Air entry diminished in bilateral lung bases. No crepitation/rhonchi Cardiovascular: Regular rate, Regular Rhythm, Normal S1, Normal S2, No murmurs Abdomen: Bowel Sounds Present, Soft, Non Tender, Non-Distended : On hemodialysis. No renal angle tenderness. No suprapubic tenderness. Extremities: No edema, Capillary Refill Less than 3 Seconds Skin: No rashes, No breakdown Musculoskeletal: No Tenderness to Palpation of Joints or Extremities Neurological: Cranial nerves II-XII grossly intact, DTR 2+/4. No acute focal neurological deficit. Psych/Mental Status: Normal Affect, Appropriate. Assessment & Plan Assessment/Plan (1) Intractable nausea and vomiting: (2) Abdominal pain: QUALIFIERS: Abdominal location: right lower quadrant Qualified Code(s): R10.31 - Right lower quadrant pain (3) Diverticulitis: PLAN: Plan Patient is a 28-year-old male who presented to [facility] ED on 05/24/2023 with intractable nausea and vomiting. 1. Acute diverticulitis with abdominal pain CT abdomen pelvis on admit showed recrudescent sigmoid diverticulitis. Patient had difficulty tolerating p.o. intake, repeat CT abdomen pelvis with oral and rectal contrast showed thickened colon wall at level sigmoid colon suggestive of possible complicated diverticulitis. Improving, advanced to regular diet on 05/27 and tolerating well. ? General surgery following. Patient continued to have mild abdominal pain requiring intermittent doses of p.o. oxycodone. Continue IV antibiotics. Per surgery, goal is for patient to have resolution of pain prior to discharge, as IV antibiotics are more effective than p.o. antibiotics for diverticulitis. 05/29: Patient is pain-free. Eating regular diet. Plan for discharge today on p.o. ciprofloxacin and Flagyl for 14-day course total. Will need outpatient colonoscopy about 6 weeks post discharge. 2. Intractable nausea and vomiting with mild hematemesis, improving ? Suspect nausea and vomiting are primarily secondary to acute diverticulitis noted below. Suspect mild hematemesis was due to Radha-Disla tear. Hemoglobin has remained stable, nausea and vomiting improving with treatment of diverticulitis as noted below. Transitioned from IV PPI to p.o. PPI on 05/27. Advanced to regular diet on 05/27, patient tolerating well. Continue Compazine as needed for symptomatic management. 3. ESRD on HD ? Nephrology following. Does outpatient HD on MWF schedule. Last HD session on Friday 05/26, patient tolerated without issue. Next HD session planned for Monday 05/29. 4. Hypertension ? Home regimen of amlodipine, carvedilol, clonidine patch, doxazosin. Required IV labetalol and IV hydralazine in addition to clonidine patch while NPO during this admission. Transitioned back to home regimen on 05/27. 5. Elevated lactic acid, resolved ? Lactate 12.5 on admit. Likely secondary to ESRD, patient had not been dialyzed for several days prior to admission. Resolved after HD session on admission. 6. Mild acute malnutrition: Patient lost 4% weight in less than 1 week and 50% decreased p.o. intake for more than 5 days. His BMI is around 29.5, weight down to 27.1 but is gaining back and most recent 29.6 kg/m?. Chronic medical conditions: ? Chronic anemia secondary to renal disease: Hemoglobin 10.5 on admit, baseline hemoglobin 9-10. Stable at baseline during admission. Continue MICHELLE and IV iron with dialysis. ? GERD: Continue home PPI. ? Bipolar disorder: Continue home lurasidone and doxepin. ? Chronic elevated transaminases: Stable, continue outpatient follow-up with GI. DVT prophylaxis: Heparin subcu CODE STATUS: Full code, verified
--- NOTE | 2023-05-29 10:10 | PCM.DC ---
Discharge Instructions Diet Discharge Diet: Light diet - advance as tolerated and Soft diet Activity Discharge Activity: Return to Normal Activity Weight Bearing Status: Weight bearing as tolerated Dressing / Incision Call your doctor if you observe: Fever of 101 or Higher, Coldness, Increased Pain, Numbness or Tingling, Change in Color, Inability to urinate, Inability to have a bowel movement, Shortness of breath, Dizziness, Fainting spells, Swelling in the ankles, Chest pain, Prolonged hiccupping, Increased palpitations (irregular heartbeat) and Calf discomfort Follow Up Care When: IN 2 WEEKS Test Results: Test results from this visit will be discussed in further detail at your follow-up appointment, if applicable. Discharge Plan Admission Admit Date/Time: 05/24/23 15:15 Primary Reason for Your Visit: Diverticulitis. Attending Provider: Robin Joya Primary Care Provider: Linn Ware Consulting Providers: Soni Sanchez; Neftali Abraham; Veena Anderson; Jarrett Diego; Catalino Hawthorne Discharge Orders/Prescriptions Prescriptions: New ciprofloxacin HCl [Cipro] 500 mg tablet 500 mg PO BID 9 Days Qty: 18 0RF metronidazole 500 mg tablet 500 mg PO Q8H 9 Days Qty: 27 0RF Continued amlodipine 10 mg tablet 10 mg PO BID Qty: 180 3RF doxazosin 8 mg tablet 8 mg PO QHS Qty: 90 3RF doxepin 10 mg capsule 10 mg PO DAILY sevelamer carbonate 800 mg tablet 800 mg PO TIDCM carvedilol 6.25 mg Tablet 6.25 mg PO BID Qty: 60 0RF ondansetron 4 mg tablet,disintegrating 4 mg PO TID PRN (Reason: NAUSEA/VOMITING) Qty: 21 0RF Patient Comments: PT STATES THAT THEY FEEL LIKE THEY NEED TO TAKE THIS DAILY AND NOT JUST NEEDED ( OF 05-24-23) clonidine 0.3 mg/24 hr patch weekly 1 patch transdermal TU cholecalciferol (vitamin D3) 1,250 mcg (50,000 unit) capsule 1,250 mcg PO MOWEFR Patient Comments: THIS MEDICATION IS TAKEN BEFORE DIALYSIS ON MONDAYS/WEDNESDAYS/FRIDAYS lurasidone 20 mg tablet 20 mg PO QPM Rx Instructions: TAKE 1 TABLET BY MOUTH EVERY EVENING WITH FOOD (AT LEAST 350 CALORIES) minoxidil 2.5 mg tablet 2.5 mg PO BID aspirin 81 mg tablet,delayed release (DR/EC) 81 mg PO BREAKFAST Qty: 30 2RF omeprazole 40 mg capsule,delayed release(DR/EC) 40 mg PO DAILY Qty: 30 5RF Referrals / Follow Up: Linn Ware MD [Primary Care Provider] - Within 2 Weeks Alysha Rico MD [Med Staff - Consulting] - Within 1 Month (On HD) Neftali Abraham MD [Med Staff - Active Staff] - Within 1 Month (Diagnostic colonoscopy in 6 weeks following resolution of symptoms.) Disposition Disposition (needs filled in before D/C Order can be placed): Home, Self Care
[2023-05-29] MEDS: Doxepin Hydrochloride 10 MG Capsule PO (10:26)
[2023-05-29] MEDS: Carvedilol 6.25 MG Tablet PO (10:26)
[2023-05-29] MEDS: Pantoprazole Sodium 40 MG Tablet PO (10:26)
[2023-05-29] MEDS: amLODIPine 10 MG Tablet PO (10:26)
--- NOTE | 2023-05-29 11:37 | PCM.DC.SUM ---
Providers Date of Admission: 05/24/23 Date of Discharge: 05/29/23 Primary Care Physician: Dr. Linn Ware MD Consultations 05/24/23 15:55 Consult: General Surgery Routine Consulting Provider: Neftali Abraham Reason for Consult: Colitis EMERGENT Consult: No Notified: Yes Date Notified: 05/24/23 Time Notified: 15:55 Method of Notification: Text 05/24/23 16:03 Consult: Gastroenterology Routine Consulting Provider: [facility] Reason for Consult: GI bleed EMERGENT Consult: No Notified: Yes Date Notified: 05/24/23 Time Notified: 15:21 Method of Notification: Verbal Consult: Nephrology Routine Consulting Provider: Soni Sanchez Reason for Consult: ESRD EMERGENT Consult: No Notified: Yes Date Notified: 05/24/23 Time Notified: 15:21 Method of Notification: Verbal Reason For Visit: INTRACTABLE NAUSEA AND VOMITING/ACUTE DIVERTICULIT Diagnosis Discharge Diagnosis (1) Abdominal pain: Status: Acute Code(s): R10.9 - Unspecified abdominal pain Qualifiers: Abdominal location: right lower quadrant Qualified Code(s): R10.31 - Right lower quadrant pain (2) Intractable nausea and vomiting: Status: Acute Code(s): R11.2 - Nausea with vomiting, unspecified (3) Diverticulitis: Status: Acute Code(s): K57.92 - Diverticulitis of intestine, part unspecified, without perforation or abscess without bleeding Plan Patient is a 28-year-old male who presented to [facility] ED on 05/24/2023 with intractable nausea and vomiting. 1. Acute diverticulitis with abdominal pain CT abdomen pelvis on admit showed recrudescent sigmoid diverticulitis. Patient had difficulty tolerating p.o. intake, repeat CT abdomen pelvis with oral and rectal contrast showed thickened colon wall at level sigmoid colon suggestive of possible complicated diverticulitis. Improving, advanced to regular diet on 05/27 and tolerating well. ? General surgery following. Patient continued to have mild abdominal pain requiring intermittent doses of p.o. oxycodone. Continue IV antibiotics. Per surgery, goal is for patient to have resolution of pain prior to discharge, as IV antibiotics are more effective than p.o. antibiotics for diverticulitis. 05/29: Patient is pain-free. Having regular consistency diet . the patient is discharged on p.o. ciprofloxacin and Flagyl for 14-day course total. Will need outpatient colonoscopy about 6 weeks post discharge. 2. Intractable nausea and vomiting with mild hematemesis, improving ? Suspect nausea and vomiting are primarily secondary to acute diverticulitis noted below. Suspect mild hematemesis was due to Radha-Disla tear. Hemoglobin has remained stable, nausea and vomiting improving with treatment of diverticulitis as noted below. Transitioned from IV PPI to p.o. PPI on 05/27. Advanced to regular diet on 05/27, patient tolerating well. Continue Compazine as needed for symptomatic management. 3. ESRD on HD ? 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 Does outpatient HD on MWF schedule. Patient had hemodialysis today. 4. Hypertension ? Home regimen of amlodipine, carvedilol, clonidine patch, doxazosin. Required IV labetalol and IV hydralazine in addition to clonidine patch while NPO during this admission. Transitioned back to home regimen on 05/27. 5. Elevated lactic acid, resolved ? Lactate 12.5 on admit. Likely secondary to ESRD, patient had not been dialyzed for several days prior to admission. Resolved after HD session on admission. 6. Mild acute malnutrition: Patient lost 4% weight in less than 1 week and 50% decreased p.o. intake for more than 5 days. His BMI is around 29.5, weight down to 27.1 but is gaining back and most recent 29.6 kg/m?. Chronic medical conditions: ? Chronic anemia secondary to renal disease: Hemoglobin 10.5 on admit, baseline hemoglobin 9-10. Stable at baseline during admission. Continue MICEHLLE and IV iron with dialysis. ? GERD: Continue home PPI. ? Bipolar disorder: Continue home lurasidone and doxepin. ? Chronic elevated transaminases: Stable, continue outpatient follow-up with GI. DVT prophylaxis: Heparin subcu CODE STATUS: Full code, verified discharge medication reconciliation done. Discharge follow-up instructions completed. Discharge process discussed with the patient and all questions were answered to patient's satisfaction. Follow with PCP in 1 to 2 weeks Total time spent, exact 35 minutes on discharge meds reconciliation, examination, coordination of care with nurses and ancillary staff, review of imaging and blood test and discussion with the patient on follow-up instructions. Medications at Discharge Home Medications aspirin 81 mg tablet,delayed release 81 mg PO BREAKFAST [facility] #30 tabs 07/05/22 amlodipine 10 mg tablet 10 mg PO BID BLOOD PRESSURE #180 tabs 07/21/22 doxazosin 8 mg tablet 8 mg PO QHS BLOOD PRESSURE #90 tabs 07/21/22 omeprazole 40 mg capsule,delayed release 40 mg PO DAILY ACID REFLUX #30 caps 02/15/23 doxepin 10 mg capsule 10 mg PO DAILY DEPRESSION 02/22/23 sevelamer carbonate 800 mg tablet 800 mg PO TIDCM PHOSPHATE LEVELS 03/10/23 carvedilol 6.25 mg tablet 6.25 mg PO BID HEART #60 tabs 03/14/23 ondansetron 4 mg disintegrating tablet 4 mg PO TID PRN NAUSEA/VOMITING #21 tabs 03/24/23 cholecalciferol (vitamin D3) 1,250 mcg (50,000 unit) capsule 1,250 mcg PO MOWEFR SUPPLEMENT 05/24/23 clonidine 0.3 mg/24 hr weekly transdermal patch 1 patch transdermal TU BLOOD PRESSURE 05/24/23 lurasidone 20 mg tablet 20 mg PO QPM BIPOLAR DISORDER 05/24/23 minoxidil 2.5 mg tablet 2.5 mg PO BID HAIR GROWTH 05/24/23 ciprofloxacin HCl 500 mg tablet (Cipro) 500 mg PO BID 9 days #18 tabs 05/28/23 metronidazole 500 mg tablet 500 mg PO Q8H 9 days #27 tabs 05/28/23 Physical Exam Narrative Seen and examined. Patient does not have abdominal pain nausea or vomiting. General: Alert, Oriented x3, Cooperative, BMI 29.6 kg/m? HEENT: Atraumatic, PERRLA, EOMI, Normocephalic Oral: Oral mucosa moist. No Gingival or Mucosal Lesions/ Ulcerations Neck: Supple, No JVD, Negative Carotid Bruits Lungs: Air entry diminished in bilateral lung bases. No crepitation/rhonchi Cardiovascular: Regular rate, Regular Rhythm, Normal S1, Normal S2, No murmurs Abdomen: Bowel Sounds Present, Soft, Non Tender, Non-Distended : On hemodialysis. No renal angle tenderness. No suprapubic tenderness. Extremities: No edema, Capillary Refill Less than 3 Seconds Skin: No rashes, No breakdown Musculoskeletal: No Tenderness to Palpation of Joints or Extremities Neurological: Cranial nerves II-XII grossly intact, DTR 2+/4. No acute focal neurological deficit. Psych/Mental Status: Normal Affect, Appropriate. Medical Records Data Medical Nutrition Assessment Dietitian: Malnutrition Criteria Met Start: 05/25/23 15:15 Freq: Status: Active Protocol: Document 05/25/23 15:15 AG (Rec: 05/25/23 15:15 AG Desktop) Nutrition Malnutrition Evidence of Malnutrition Exists Yes Malnutrition (severe): Acute Illness/Injury Evidenced By Suboptimal Energy Intake ( Severe),Weight Loss (Severe) Clinical Problem Acute Disease or Injury Related Malnutrition Etiology severe, acute malnutrition related to inadequate energy intake w/ GI dysfunction Signs/Symptoms as evidenced by unintentional 4% wt loss < 1 week, estimated PO intake meeting <50% of estimated energy needs > 5 days Status Active Problem Recommendation Dietitian Recommendations/Changes continue renal diet as tolerated; consider fiber restriction pending further GI workup, determination of etiology re: abd pain. Weight / BMI Weight Weight: 194 lb 14.218 oz Body Mass Index (BMI) 29.6 ABG / Lab / Microbiology Data 05/25/23 10:10 05/29/23 03:55 Laboratory: Laboratory Results - last 24 hr 05/29/23 03:55: Sodium 139, Potassium 3.8, Chloride 109 H, Carbon Dioxide 25.0, Anion Gap 5, BUN 22 H, Creatinine 4.76 H, Estim Creat Clear Calc 21.95, Est GFR (MDRD) Af Amer 19 L, Est GFR (MDRD) Non-Af 15 L, BUN/Creatinine Ratio 4.6 L, Glucose 107 H, Calcium 7.7 L Microbiology: Microbiology 05/25/23 15:26 Stool Stool Lactoferrin - Final 05/25/23 15:26 Stool Enteric Bacteriology - Final 05/25/23 15:26 Stool Stool Occult Blood (NAVEEN) - Final Occult Blood Positive D/C Instructions Discharge Diet: Light diet - advance as tolerated and Soft diet Weight Bearing Status: Weight bearing as tolerated Call your doctor if you observe: Fever of 101 or Higher, Coldness, Increased Pain, Numbness or Tingling, Change in Color, Inability to urinate, Inability to have a bowel movement, Shortness of breath, Dizziness, Fainting spells, Swelling in the ankles, Chest pain, Prolonged hiccupping, Increased palpitations (irregular heartbeat) and Calf discomfort When: IN 2 WEEKS Meaningful Use Info Meaningful Use Diagnoses (Choose all that apply): None applicable Discharge Plan Admission Admit Date/Time: 05/24/23 15:15 Primary Reason for Your Visit: Diverticulitis. Attending Provider: Robin Joya Primary Care Provider: Linn Ware Consulting Providers: Soni Sanchez; Neftali Abraham; Veena Anderson; Jarrett Diego; Catalino Hawthorne Discharge Orders/Prescriptions Prescriptions: New ciprofloxacin HCl [Cipro] 500 mg tablet 500 mg PO BID 9 Days Qty: 18 0RF metronidazole 500 mg tablet 500 mg PO Q8H 9 Days Qty: 27 0RF Continued amlodipine 10 mg tablet 10 mg PO BID Qty: 180 3RF doxazosin 8 mg tablet 8 mg PO QHS Qty: 90 3RF doxepin 10 mg capsule 10 mg PO DAILY sevelamer carbonate 800 mg tablet 800 mg PO TIDCM carvedilol 6.25 mg Tablet 6.25 mg PO BID Qty: 60 0RF ondansetron 4 mg tablet,disintegrating 4 mg PO TID PRN (Reason: NAUSEA/VOMITING) Qty: 21 0RF Patient Comments: PT STATES THAT THEY FEEL LIKE THEY NEED TO TAKE THIS DAILY AND NOT JUST NEEDED ( OF 05-24-23) clonidine 0.3 mg/24 hr patch weekly 1 patch transdermal TU cholecalciferol (vitamin D3) 1,250 mcg (50,000 unit) capsule 1,250 mcg PO MOWEFR Patient Comments: THIS MEDICATION IS TAKEN BEFORE DIALYSIS ON MONDAYS/WEDNESDAYS/FRIDAYS lurasidone 20 mg tablet 20 mg PO QPM Rx Instructions: TAKE 1 TABLET BY MOUTH EVERY EVENING WITH FOOD (AT LEAST 350 CALORIES) minoxidil 2.5 mg tablet 2.5 mg PO BID aspirin 81 mg tablet,delayed release (DR/EC) 81 mg PO BREAKFAST Qty: 30 2RF omeprazole 40 mg capsule,delayed release(DR/EC) 40 mg PO DAILY Qty: 30 5RF Referrals / Follow Up: Linn Ware MD [Primary Care Provider] - 06/01/23 11:30 am Alysha Rico MD [Med Staff - Consulting] - Within 1 Month (On HD) Neftali Abraham MD [Med Staff - Active Staff] - Within 1 Month (Diagnostic colonoscopy in 6 weeks following resolution of symptoms.) Disposition Disposition (needs filled in before D/C Order can be placed): Home, Self Care Charges/Coding Visit Charges Inpatient E&M: 90317 Disch Hosp >30min
--- NOTE | 2023-05-29 12:00 | CASEMGMT ---
Patient has order for discharge. RN CM in to discuss needs at discharge. Patient denies needs or help at discharge. Patient had no further questions or concerns.
--- NOTE | 2023-05-29 12:22 | PCM.PN.REN ---
Subjective Subjective seen on HD today Objective Data Objective Data Vital Signs: Vital Signs Temp Pulse Resp BP Pulse Ox O2 Del Method 98.5 F 90 16 155/100 H 99 Room Air 05/29/23 11:00 05/29/23 11:00 05/29/23 11:00 05/29/23 11:00 05/29/23 11:00 05/29/23 11:00 Oxygen Delivery Method Room Air Weight: 88.4 kg Body Mass Index (BMI) 29.6 Intake & Output: Intake and Output for Last 24 Hours 05/27/23 05/28/23 05/29/23 23:59 23:59 23:59 Intake Total 620 / 620 1150 / 1900 1400 / 1400 Output Total 475 / 475 1000 / 1700 1100 / 1100 Balance 145 / 145 150 / 200 300 / 300 Medical Nutrition Assessment Dietitian: Malnutrition Criteria Met Start: 05/25/23 15:15 Freq: Status: Active Protocol: Document 05/25/23 15:15 AG (Rec: 05/25/23 15:15 AG Desktop) Nutrition Malnutrition Evidence of Malnutrition Exists Yes Malnutrition (severe): Acute Illness/Injury Evidenced By Suboptimal Energy Intake ( Severe),Weight Loss (Severe) Clinical Problem Acute Disease or Injury Related Malnutrition Etiology severe, acute malnutrition related to inadequate energy intake w/ GI dysfunction Signs/Symptoms as evidenced by unintentional 4% wt loss < 1 week, estimated PO intake meeting <50% of estimated energy needs > 5 days Status Active Problem Recommendation Dietitian Recommendations/Changes continue renal diet as tolerated; consider fiber restriction pending further GI workup, determination of etiology re: abd pain. Lab / Micro Data 05/25/23 10:10 05/29/23 03:55 Labs: Laboratory Results - last 24 hr 05/29/23 03:55: Sodium 139, Potassium 3.8, Chloride 109 H, Carbon Dioxide 25.0, Anion Gap 5, BUN 22 H, Creatinine 4.76 H, Estim Creat Clear Calc 21.95, Est GFR (MDRD) Af Amer 19 L, Est GFR (MDRD) Non-Af 15 L, BUN/Creatinine Ratio 4.6 L, Glucose 107 H, Calcium 7.7 L Micro: Microbiology 05/25/23 15:26 Stool Stool Lactoferrin - Final 05/25/23 15:26 Stool Enteric Bacteriology - Final 05/25/23 15:26 Stool Stool Occult Blood (NAVEEN) - Final Occult Blood Positive Physical Exam Narrative A&O x3, no acute distress S1, S2, RRR Lung sounds clear anteriorly and posteriorly Abdomen soft, mild tenderness upon palpation No edema AV fistula left arm positive thrill and bruit Const alert, oriented x3, no apparent distress and average body habitus General Appearance: well developed Orientation / Consciousness: oriented to person, oriented to place and oriented to time HEENT normocephalic Eyes PERRL Neck no lymphadenopathy Resp no use of accessory muscles and clear to auscultation bilaterally Cardio regular rate, no murmurs and no rub Cardio Narrative: No edema GI Auscultation: normoactive bowel sounds Palpation: tender Extremity General Extremity: AV fistula Skin no rashes or lesions noted Neuro Sensorium / Orientation: awake and alert Psych cooperative Assessment & Plan Assessment/Plan (1) Dependent on hemodialysis: PLAN: - ESRD on HD Monday. seen on HD today - HTN; bps acceptable - anemia of chronic disease; last hgb 9.2. Patient receives MICHELLE and IV iron at dialysis - Intractable nausea and vomiting/diverticulitis/abdominal pain. Surgery team following. clinically better
== END 2023-05-29 15:14 | disposition home or self-care (01) | DRG 244 ==
LOC: ED 13:03 → PCU 15:41
PROVIDERS: Hospitalist; Physician Assistant; Admitting Provider Internal Medicine; Emergency Provider Emergency Medicine; PCP Internal Medicine; Visit Provider Internal Medicine
DX: K57.32 Diverticulitis of large intestine without perforation or abscess without bleeding (principal); K22.6 Gastro-esophageal laceration-hemorrhage syndrome; E44.1 Mild protein-calorie malnutrition; I12.0 Hypertensive chronic kidney disease with stage 5 chronic kidney disease or end stage renal disease; N18.6 End stage renal disease; E87.20 Acidosis, unspecified; D63.1 Anemia in chronic kidney disease; F31.9 Bipolar disorder, unspecified; Z99.2 Dependence on renal dialysis; F17.220 Nicotine dependence, chewing tobacco, uncomplicated; K21.9 Gastro-esophageal reflux disease without esophagitis; E55.9 Vitamin D deficiency, unspecified; E86.0 Dehydration; Z82.3 Family history of stroke; Z79.82 Long term (current) use of aspirin; R10.31 Right lower quadrant pain; Z68.28 Body mass index [BMI] 28.0-28.9, adult
CPT/HCPCS: 36415; 74176; 80048; 80053; 82274; 83605; 83630; 83690; 83735; 84100; 85014; 85018; 85025; 86850; 86900; 86901; 87329; 87506; 90937; 93005; 94668; 97162; 97165; 97802; 99284; J7030; J7040; A4216; G0257; J0744; J2405

== ENCOUNTER 2023-06-05 09:55 | Emergency (ER) | payer MEDICAID, SELFPAY ==
[2023-06-05 09:56] VITALS: BP 188/118; PULSE 129; RESP 18; TEMP 37.3; O2SAT 100; BMI 27.5
--- NOTE | 2023-06-05 10:20 | CT_ITS ---
STUDY: CT ABDOMEN AND PELVIS WITHOUT CONTRAST REASON FOR EXAM: Male, 28 years old. Abdominal pain. Patient is being treated for diverticulitis. Right lower quadrant pain and vomiting. RADIATION DOSAGE (If Supplied By Facility): CTDIvol = ( 7.40 ) mGy, DLP = ( 386.32 ) mGycm TECHNIQUE: Transaxial images were obtained from the dome of the diaphragm to the symphysis pubis without oral contrast, and without intravenous contrast. Sagittal and coronal images were reconstructed. Individualized dose optimization techniques were used for this CT. COMPARISON: Comparison is made with prior study dated May 26, 2023. FINDINGS: The visualized lung bases are unremarkable. The visualized portions of the heart are within normal limits. There is decreased attenuation of the liver consistent with steatosis. Hepatomegaly. Mildly distended gallbladder. Findings suggestive of sludge within the gallbladder lumen. Normal spleen. Normal pancreas. Normal bilateral adrenal glands. Normal right kidney. Normal left kidney. There is a small hiatal hernia. Normal small intestine. There is diverticulosis, with thickening of the colon wall, and pericolonic inflammation changes consistent with acute diverticulitis. This has improved as compared to prior study. The appendix is visualized and appears normal. Normal abdominal aorta. Normal inferior vena cava. Normal retroperitoneum. Normal urinary bladder. Normal abdominal wall. Normal osseous structures. CT/Abdomen/Pel W ORAL Cont Only IMPRESSION: Hepatomegaly and diffuse fatty attrition of the liver. Persistent mild inflammatory changes in the region of the sigmoid colon in keeping with the sigmoid diverticulitis although this has improved as compared to prior study. Electronically Signed: Matt Harris MD at 13:10 EST ,
--- NOTE | 2023-06-05 10:21 | EDS_ITS ---
HPI HPI - GI History of Present Illness Chief Complaint: Abd Pain Informant: patient Abdominal Pain/Flank Pain Onset: Yesterday Context: Sudden Onset Timing: Continuous Quality: Cramping (Squeezing) Location: RLQ Worsened by: Nothing Relieved by: Nothing Nausea/Vomiting/Emesis GI Symptom: Positive for Nausea and Vomiting Onset: Yesterday Diarrhea/Melena/Hematochezia GI Symptom: Negative for Diarrhea, Melena or Hematochezia Associated Symptoms Associated Symptoms: Negative for Dysuria, Frequency or Hematuria Narrative Narrative: Patient presents with abdominal pain that began yesterday. Patient states it began suddenly. Patient states he woke up with the pain yesterday. Patient states has been constant. Patient states the pain is mainly over the right lower abdomen. Patient states he was recently diagnosed with diverticulitis. Patient states nothing makes it worse and nothing makes it better. Patient admits to some nausea and vomiting. Patient denies any diarrhea. Patient admits to sore throat. Patient denies any urinary complaints. [facility] Medical History Alcohol abuse Anemia Bipolar 1 disorder Bleach ingestion Chronic renal failure Chronic renal failure, stage 5 Congestive heart failure (CHF) Dialysis patient Diastolic heart failure End stage renal disease on dialysis ESRD (end stage renal disease) Essential hypertension Family history of chronic kidney disease Former smoker GERD (gastroesophageal reflux disease) History of echocardiogram History of renal dialysis History of sepsis Hypertension Insomnia Irregular heart beat Irritable bowel syndrome (IBS) Kidney disease Multiple sclerosis Pancreatitis Problem with dialysis access PUD (peptic ulcer disease) Seizures Steatosis of liver Tinnitus Vision problems Wears contact lenses Home Medications aspirin 81 mg tablet,delayed release 81 mg PO BREAKFAST HEART HEALTH #30 tabs 07/05/22 [Rx Last Taken 05/23/23] amlodipine 10 mg tablet 10 mg PO BID BLOOD PRESSURE #180 tabs 07/21/22 [Rx Last Taken 05/23/23] doxazosin 8 mg tablet 8 mg PO QHS BLOOD PRESSURE #90 tabs 07/21/22 [Rx Last Taken 05/23/23] omeprazole 40 mg capsule,delayed release 40 mg PO DAILY ACID REFLUX #30 caps 02/15/23 [Rx Last Taken 05/23/23] doxepin 10 mg capsule 10 mg PO DAILY DEPRESSION 02/22/23 [History Last Taken 05/23/23] sevelamer carbonate 800 mg tablet 800 mg PO TIDCM PHOSPHATE LEVELS 03/10/23 [History Last Taken 05/23/23] carvedilol 6.25 mg tablet 6.25 mg PO BID HEART #60 tabs 03/14/23 [Rx Last Taken 05/23/23] ondansetron 4 mg disintegrating tablet 4 mg PO TID PRN NAUSEA/VOMITING #21 tabs 03/24/23 [Rx Last Taken 05/23/23] cholecalciferol (vitamin D3) 1,250 mcg (50,000 unit) capsule 1,250 mcg PO MOWEFR SUPPLEMENT 05/24/23 [History Last Taken 05/22/23] clonidine 0.3 mg/24 hr weekly transdermal patch 1 patch transdermal TU BLOOD PRESSURE 05/24/23 [History Last Taken 05/16/23] lurasidone 20 mg tablet 20 mg PO QPM BIPOLAR DISORDER 05/24/23 [History Last Taken 05/23/23] minoxidil 2.5 mg tablet 2.5 mg PO BID HAIR GROWTH 05/24/23 [History Last Taken 05/23/23] ciprofloxacin HCl 500 mg tablet (Cipro) 500 mg PO BID 9 days #18 tabs 05/28/23 [Rx Last Taken Unknown] metronidazole 500 mg tablet 500 mg PO Q8H 9 days #27 tabs 05/28/23 [Rx Last Taken Unknown] ciprofloxacin HCl 500 mg tablet 500 mg PO BID #10 TABLETS 06/05/23 [Rx Last Taken Unknown] metronidazole 500 mg tablet 500 mg PO Q8H #15 tabs 06/05/23 [Rx Last Taken Unknown] Allergy/AdvReac Type Severity Reaction Status Date / Time No Known Allergies Allergy Verified 06/05/23 09:57 Family History Mother Diabetes Hypertension HLD (hyperlipidemia) Anemia Myocardial infarction Heart disease Kidney disease Father Hypertension HLD (hyperlipidemia) Bipolar disorder Diabetes Alcoholism Arthritis Depression Mental disorder Other CVA (cerebral vascular accident) Surgical History Hx of left knee surgery Hx of surgical procedure Hx of vascular surgery S/P arteriovenous (AV) fistula creation Status post insertion of hemodialysis catheter Social History household members: none current occupational status: employed and unemployed 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[employer], 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 Smoking Status: Current every day smoker tobacco type: e-cigarettes Smokeless tobacco user: other alcohol intake: current alcohol intake frequency: a few times a week details: 4 x a week substance use type: does not use do you feel safe at home: Yes ROS ROS ED Constitutional Constitutional ED: Denies chills or fever(s) Eyes Eyes: Reports blurry vision ENT ENT ED: Reports sore throat; Denies rhinorrhea Cardiovascular Cardiovascular: Denies chest pain or palpitations Respiratory/Chest Respiratory/Chest: Denies cough or dyspnea Gastrointestinal Gastrointestinal: Reports abdominal pain, nausea and vomiting; Denies diarrhea or melena Genitourinary Genitourinary ED: Denies dysuria or hematuria Musculoskeletal Musculoskeletal: Denies back pain or neck pain Integumentary Denies abscess or rash Neurologic Neurologic: Denies headache(s) or weakness Allergic/Immunologic Allergic/Immunologic ED: Denies mouth swelling or urticaria EXAM Physical Exam Const Vital Signs: 06/05/23 09:56 06/05/23 12:49 Temperature 99.2 F H 98.5 F Temperature Source Temporal Oral Pulse Rate 129 H 106 H Respiratory Rate 18 18 Blood Pressure 188/118 H 198/120 H Blood Pressure Mean 141 146 Pulse Ox 100 100 Oxygen Delivery Method Room Air Room Air Positive well nourished and well developed General Appearance ED: well developed and NAD HEENT Reports moist mucous membranes Neck supple and no JVD Resp normal respiratory effort and clear to auscultation bilaterally Cardio regular rhythm Rate: tachycardic GI non-distended Palpation: soft and tender RLQ and RUQ; Negative for rebound tenderness present Extremity full ROM General Extremety ED: Negative for edema or tenderness General Extremity: Negative for edema Neuro CN's II-XII intact bilaterally, moves all extremities and no sensory deficits noted Sensorium / Orientation: alert Motor Exam: strength 5/5 throughout Psych mental status grossly normal MDM MDM MDM Narrative Medical decision making narrative: Differential diagnosis includes appendicitis, diverticulitis, gastroenteritis, ureteral calculus, bowel obstruction, perforation, pancreatitis, and electrolyte abnormality. CBC will be obtained to assess for leukocytosis and anemia. Comprehensive metabolic profile will be obtained to assess for hepatic function, renal function, and electrolyte abnormality. Lipase will be obtained to assess for pancreatitis. Urinalysis will be obtained to assess for urinary tract infection and hematuria. CT scan of the abdomen pelvis will be obtained to assess for appendicitis, bowel obstruction, and perforation. Lab Data Attestation: I reviewed the patient's lab results. Lab results narrative: CBC was reviewed. There is a mild anemia with a hemoglobin of 10.1 and hematocrit 30.7. The remainder is within normal limits. Comprehensive metabolic profile was reviewed. BUN was 27 and creatinine is 5.22. This is consistent with prior results. Alkaline phosphatase was slightly elevated at 263. Lipase was reviewed and was normal at 41. Urinalysis was reviewed. There were positive nitrites but leukocyte esterase was only 25. There is 0-5 white blood cells and 0 bacteria noted. Labs: Laboratory Results - last 24 hr 06/05/23 06/05/23 06/05/23 10:40 10:50 13:35 WBC 9.0 RBC 3.21 L Hgb 10.1 L Hct 30.7 L MCV 95.6 H MCH 31.5 MCHC 32.9 RDW Std Deviation 56.5 H RDW Coeff of [place] 16.1 H Plt Count 402 MPV 9.5 Immature Gran % (Auto) 0.300 Neut % (Auto) 82.9 H Lymph % (Auto) 8.3 L [place] % (Auto) 7.3 Eos % (Auto) 0.0 Baso % (Auto) 1.2 H Absolute Neuts (auto) 7.5 Absolute Lymphs (auto) 0.75 L Nucleated RBC % 0 Sodium 145 Potassium 4.0 Chloride 109 H Carbon Dioxide 21.0 Anion Gap 15 BUN 27 H Creatinine 5.22 H Estim Creat Clear Calc 21.63 Est GFR (MDRD) Af Amer 17 L Est GFR (MDRD) Non-Af 14 L BUN/Creatinine Ratio 5.2 L Glucose 139 H Calcium 9.0 Total Bilirubin 1.20 H AST 71 H ALT 50 Alkaline Phosphatase 263 H Total Protein 8.3 H Albumin 3.1 L Globulin 5.2 H Albumin/Globulin Ratio 0.6 L Lipase 41 Urine Color Yellow Urine Clarity Clear Urine pH 6.0 Ur Specific [place] 1.020 Urine Protein 500 H Urine Glucose (UA) Normal Urine Ketones 15 H Urine Occult Blood 25 H Urine Nitrite Positive H Urine Bilirubin Negative Urine Urobilinogen Normal Ur Leukocyte Esterase 25 H Urine RBC 0 SEEN Urine WBC 0-5 SEEN Ur Squamous Epith Cells 0 SEEN Urine Bacteria 0 SEEN WBC Casts 0-5 SEEN Urine Mucus 0 SEEN Radiography Diagnostic Testing: Clinical Impression(s) from Imaging Studies Abdomen CT 06/05/23 10:20 IMPRESSION: Hepatomegaly and diffuse fatty attrition of the liver. Persistent mild inflammatory changes in the region of the sigmoid colon in keeping with the sigmoid diverticulitis although this has improved as compared to prior study. Electronically Signed: Matt Harris MD at 13:10 EST , CT scan of the abdomen pelvis was obtained. There is persistent inflammatory changes in the region of the sigmoid colon although this is improved from previous study. There is hepatomegaly. This was interpreted by the radiologist was also independently reviewed by myself. Treatment and Re-Evaluation :: Patient was given morphine and Zofran. Patient was advised of his findings. Patient was given additional morphine and Zofran. Patient previous chart was reviewed. Patient was given prescriptions for Cipro and Flagyl 1 week ago. Patient is scheduled to continue these antibiotics for the next 2 days. Patient was given a prescription for additional Cipro and Flagyl to take for 5 more days after this. Patient was instructed to follow-up with his primary care physician in 5 to 7 days. Patient understood and was agreeable with the plan. All questions were answered. Discharge Plan Triage Chief Complaint: Abd Pain ED Provider: Casey Laboy Dx/Rx/DC Orders Clinical Impression: Diverticulitis, Chronic renal failure Instructions: ED Diverticulitis Prescriptions: New metronidazole [metronidazole] 500 mg tablet 500 mg PO Q8H Qty: 15 0RF ciprofloxacin HCl [ciprofloxacin HCl] 500 mg tablet 500 mg PO BID Qty: 10 0RF No Action amlodipine 10 mg tablet 10 mg PO BID Qty: 180 3RF doxazosin 8 mg tablet 8 mg PO QHS Qty: 90 3RF doxepin 10 mg capsule 10 mg PO DAILY sevelamer carbonate 800 mg tablet 800 mg PO TIDCM carvedilol 6.25 mg Tablet 6.25 mg PO BID Qty: 60 0RF ondansetron 4 mg tablet,disintegrating 4 mg PO TID PRN (Reason: NAUSEA/VOMITING) Qty: 21 0RF Patient Comments: PT STATES THAT THEY FEEL LIKE THEY NEED TO TAKE THIS DAILY AND NOT JUST NEEDED ( OF 05-24-23) clonidine 0.3 mg/24 hr patch weekly 1 patch transdermal TU cholecalciferol (vitamin D3) 1,250 mcg (50,000 unit) capsule 1,250 mcg PO MOWEFR Patient Comments: THIS MEDICATION IS TAKEN BEFORE DIALYSIS ON MONDAYS/WEDNESDAYS/FRIDAYS lurasidone 20 mg tablet 20 mg PO QPM Rx Instructions: TAKE 1 TABLET BY MOUTH EVERY EVENING WITH FOOD (AT LEAST 350 CALORIES) minoxidil 2.5 mg tablet 2.5 mg PO BID ciprofloxacin HCl [Cipro] 500 mg tablet 500 mg PO BID 9 Days Qty: 18 0RF metronidazole 500 mg tablet 500 mg PO Q8H 9 Days Qty: 27 0RF aspirin 81 mg tablet,delayed release (DR/EC) 81 mg PO BREAKFAST Qty: 30 2RF omeprazole 40 mg capsule,delayed release(DR/EC) 40 mg PO DAILY Qty: 30 5RF Primary Care Provider: Linn Ware Referrals: Linn Ware MD [Primary Care Provider] - 3-5 Days Activity Restrictions/Additional Instructions: You are currently on Cipro and Flagyl for your diverticulitis. Do not drink any alcohol while taking the Flagyl. You are given prescriptions for an extra 5 days of Cipro and Flagyl to take when your current prescription runs out. Follow-up with your primary care physician in 3 to 5 days. Disposition Disposition: Home, Self Care
[2023-06-05] MEDS: Morphine 4 MG/ML Syringe IV ×3 (10:44→15:29)
[2023-06-05] MEDS: Ondansetron 4 MG/2 ML Vial IV ×3 (10:44→15:29)
[2023-06-05 10:59] LABS: Absolute Lymphocyte Count 0.75 X10^3/uL (0.83-4.51); Absolute Neutrophil Count 7.5 X10^3/uL (2.0-7.7); Basophil# 0.11 X10^3/uL; Basophil% 1.2 % (0-1); Hematocrit 30.7 % (40-54); Hemoglobin 10.1 g/dL (13.0-16.5); Lymphocyte # 0.75 X10^3/ul (0.83-4.51); Lymphocyte % 8.3 % (19-41); Mean Corp Hgb Conc 32.9 g/dL (32-36); Mean Corpuscular Hgb 31.5 pg (27.0-32.0); Mean Corpuscular Volume 95.6 fL (80-94); Mean Platelet Vol. 9.5 fl (6.2-12.0); Monocyte# 0.66 X10^3/uL; Monocyte% 7.3 % (0-10); NRBC Flagged by Analyzer 0 % (0-5); Neutrophil # 7.48 X10^3/uL (2.7-7.7); Neutrophil % 82.9 % (47-70); Platelet Count 402 K/mm3 (150-450); RBC Distribution Width CV 16.1 % (11.6-14.6); RBC Distribution Width SD 56.5 fl (35.1-43.9); Red Blood Count 3.21 M/mm3 (4.6-6.2)
[2023-06-05 11:13] LABS: ALB/GLOB Ratio 0.6 RATIO (0.9-2.4); AST(SGOT) 71 U/L (15-37); Alanine Aminotransfer ALT/SGPT 50 U/L (16-61); Albumin, Serum 3.1 g/dL (3.2-5.0); Alkaline Phosphatase 263 U/L (45-117); Anion Gap 15 (5-15); BUN 27 mg/dL (7-18); BUN/Creat Ratio 5.2 RATIO (10-20); Chloride 109 mmol/L (98-107); Creatinine, Serum 5.22 mg/dL (0.70-1.30); EST Glomerular Filtration Rate 14 mL/min (>60); Est Glom Filt Rate - Afr Amer 17 mL/min (>60); Estimated Creatinine Clearance 21.63 ml/min; Globulin 5.2 g/dL (2.2-4.2); Glucose 139 mg/dL (74-106); Lipase 41 U/L (13-75); Protein, Total 8.3 g/dL (6.4-8.2); Sodium Level 145 mmol/L (136-145)
--- NOTE | 2023-06-05 11:41 | ED.RN ---
vomitted approx 1/4 of contrast per patient. more zofran and morphine ordered and given.
[2023-06-05 12:49] VITALS: BP 198/120; PULSE 106; RESP 18; TEMP 36.9; O2SAT 100
[2023-06-05] MEDS: Metoclopramide 10 MG/2 ML Vial IV (12:49)
[2023-06-05 13:43] LABS: Bacteria 0 SEEN /hpf (None Seen); Mucous, Urine 0 SEEN /hpf (<or=2+); Red Blood Cells-Urine 0 SEEN /hpf (0-5); Squamous Epithelial Cells - UA 0 SEEN /hpf (0-5)
[2023-06-05 13:47] LABS: Color, Urine Yellow (Yellow); Glucose, Dipstick Normal (Normal); Ketone-Dipstick 15 mg/dl (Negative); Leukocyte Esterase-Dipstick 25 /ul (Negative); Nitrite-Dipstick Positive (Negative); Occult Blood-Urine 25 /ul (Negative); Protein-Dipstick 500 mg/dl (Negative); Urine Bilirubin Dipstick Negative (Negative); Urine Clarity Clear (Clear); Urine Urobilinogen Normal (Normal)
[2023-06-05 13:54] LABS: White Blood Cells 0-5 SEEN /hpf (0-5); White Cell Cast 0-5 SEEN /lpf (None Seen)
[2023-06-05 15:31] VITALS: BP 201/128; PULSE 105; RESP 16; O2SAT 100
--- NOTE | 2023-06-05 15:41 | ED.RN ---
spoke with Donaldo, will add on to dialysis schedule for monday at 1130.
[2023-06-05] MEDS: Labetalol (Prefilled) 20 MG/4 ML IV (15:45)
[2023-06-05 15:58] VITALS: BP 191/115
[2023-06-05 16:28] VITALS: BP 193/121
[2023-06-05] MEDS: cloNIDine HCl 0.1 MG Tablet 0.100000000000000006 MG PO (17:01)
== END 2023-06-05 17:02 | disposition home or self-care (01) ==
PROVIDERS: Emergency Provider Emergency Medicine; PCP Internal Medicine; Visit Provider Emergency Medicine
DX: K57.92 Diverticulitis of intestine, part unspecified, without perforation or abscess without bleeding (principal); I13.2 Hypertensive heart and chronic kidney disease with heart failure and with stage 5 chronic kidney disease, or end stage renal disease; Z99.2 Dependence on renal dialysis; I50.30 Unspecified diastolic (congestive) heart failure; F31.9 Bipolar disorder, unspecified; N18.6 End stage renal disease; R11.2 Nausea with vomiting, unspecified; Z79.899 Other long term (current) drug therapy; Z79.82 Long term (current) use of aspirin; K21.9 Gastro-esophageal reflux disease without esophagitis; F17.290 Nicotine dependence, other tobacco product, uncomplicated
CPT/HCPCS: 74176; 80053; 81001; 83690; 85025; 96374; 96375; 96376; 99283; J7030; A4216; J2405

== ENCOUNTER 2023-06-25 11:08 | Emergency (ER) | payer MEDICAID, SELFPAY ==
[2023-06-25] VITALS (8 sets, daily range): BP systolic 0–194; BP diastolic 0–131; PULSE 0–180; RESP 0–23; TEMP -17.7–36.1; O2SAT 0–100; BMI 26.4
--- NOTE | 2023-06-25 11:21 | EKG12_ITS ---
Test Reason : REPEAT Blood Pressure : / mmHG Vent. Rate : 123 BPM Atrial Rate : 123 BPM P-R Int : 112 ms QRS Dur : 084 ms QT Int : 424 ms P-R-T Axes : 000 019 023 degrees QTc Int : 607 ms Critical Test Result: Long QTc Sinus tachycardia ST & T wave abnormality, consider anterior ischemia Abnormal ECG Long QT Confirmed by SHABBIR HAYS, SYL ([id number]), content editor JARAD ESTRADA ([id number]) on 06/26/2023 10:08:40 AM Referred By: Confirmed By:SYL SHEA MD
--- NOTE | 2023-06-25 11:30 | CT_ITS ---
EXAM: CT ABDOMEN AND PELVIS WITHOUT INTRAVENOUS CONTRAST CLINICAL INDICATION: abdominal pain TECHNIQUE: Helically acquired images were obtained of the abdomen and pelvis without intravenous contrast. This CT exam was performed using one or more of the following dose reduction techniques: automated exposure control, adjustment of the mA and/or kV according to patient size, and/or use of iterative reconstruction technique. COMPARISON: CT Abdomen Pelvis dated 06/05/2023, CT Abdomen Pelvis dated 02/22/2023 FINDINGS: LOWER THORAX: Normal. Lung bases are clear. No cardiomegaly. No pericardial effusion. ABDOMEN: LIVER: Severe hepatic steatosis. Liver is diffusely enlarged. GALLBLADDER AND BILE DUCTS: Normal. No calcified gallstones. No gallbladder distention or wall edema. No intra- or extrahepatic biliary ductal dilation. No inflammatory change of the gallbladder. PANCREAS: Normal. No focal cystic mass. SPLEEN: Normal. Normal size without focal cystic or solid mass. ADRENALS: Normal. No nodules. KIDNEYS AND URETERS: Normal. No hydronephrosis. STOMACH AND BOWEL: Persistent diffuse wall thickening of the sigmoid colon which may represent the residuals of acute diverticulitis or colitis. Remainder of the colon is contracted which may account for the wall thickening. However, chronic colitis is not excluded. PELVIS: APPENDIX: No evidence of acute appendicitis. BLADDER: Normal. REPRODUCTIVE: Unremarkable as visualized. No mass. ABDOMEN and PELVIS: INTRAPERITONEAL SPACE: Normal. No ascites or other fluid collection. No free air. BONES/JOINTS: No suspicious lytic or blastic abnormality. SOFT TISSUES: Normal. No discrete abdominal or pelvic wall hernia. VASCULATURE: Normal. Abdominal aorta is non-dilated. LYMPH NODES: Normal. No enlarged lymph nodes. CT/Abdomen/Pelvis without Cont IMPRESSION: 1. Persistent wall thickening of the sigmoid colon likely related to acute colitis. Persistent wall thickening of the remainder of the large bowel suggestive of chronic colitis. 2. Severe hepatic steatosis. Electronically Signed: Tani Juan MD at 14:21 EST ,
--- NOTE | 2023-06-25 11:33 | EDS_ITS ---
HPI <FREDY Banks - Last Filed: 06/25/23 15:22> History of Present Illness Chief Complaint: Suicidal Narrative Narrative: 28-year-old male with PMH of HTN, ESRD on dialysis, bipolar presents with persistent nausea/vomiting and abdominal pain for 1 month. He completed antibiotics for diverticulitis but hasn't gotten better. He is also feeling suicidal. He states he lost his job and is having consistent medical problems and wants to kill himself. He states he will either take all his medications, drink bleach, or cut his wrists. His left arm fistula became nonfunctional a week ago and he supposed to see Dr. Rowell tomorrow for it. He has not had dialysis in a week. PFSH <FREDY Banks - Last Filed: 06/25/23 15:22> [facility] Medical History (Updated 06/25/23 @ 15:[address] Rakesh Orona, DO) Acute diverticulitis Alcohol abuse Anemia Bipolar 1 disorder Bleach ingestion Chronic renal failure Chronic renal failure, stage 5 Congestive heart failure (CHF) Dialysis patient Diastolic heart failure End stage renal disease on dialysis ESRD (end stage renal disease) Essential hypertension Family history of chronic kidney disease Former smoker GERD (gastroesophageal reflux disease) History of echocardiogram History of renal dialysis History of sepsis Hypertension Insomnia Irregular heart beat Irritable bowel syndrome (IBS) Kidney disease Multiple sclerosis Pancreatitis Problem with dialysis access PUD (peptic ulcer disease) Seizures Steatosis of liver Tinnitus Vision problems Wears contact lenses Home Medications aspirin 81 mg tablet,delayed release 81 mg PO BREAKFAST HEART HEALTH #30 tabs 07/05/22 [Rx Last Taken 05/23/23] amlodipine 10 mg tablet 10 mg PO BID BLOOD PRESSURE #180 tabs 07/21/22 [Rx Last Taken 05/23/23] doxazosin 8 mg tablet 8 mg PO QHS BLOOD PRESSURE #90 tabs 07/21/22 [Rx Last Taken 05/23/23] omeprazole 40 mg capsule,delayed release 40 mg PO DAILY ACID REFLUX #30 caps 02/15/23 [Rx Last Taken 05/23/23] doxepin 10 mg capsule 10 mg PO DAILY PRN sleep 02/22/23 [History Last Taken 05/23/23] sevelamer carbonate 800 mg tablet 800 mg PO TIDCM PHOSPHATE LEVELS 03/10/23 [History Last Taken 05/23/23] carvedilol 6.25 mg tablet 6.25 mg PO BID HEART #60 tabs 03/14/23 [Rx Last Taken 05/23/23] ondansetron 4 mg disintegrating tablet 4 mg PO TID PRN NAUSEA/VOMITING #21 tabs 03/24/23 [Rx Last Taken 05/23/23] cholecalciferol (vitamin D3) 1,250 mcg (50,000 unit) capsule 1,250 mcg PO MOWEFR SUPPLEMENT 05/24/23 [History Last Taken 05/22/23] clonidine 0.3 mg/24 hr weekly transdermal patch 1 patch transdermal TU BLOOD PRESSURE 05/24/23 [History Last Taken 05/16/23] lurasidone 20 mg tablet 20 mg PO QPM BIPOLAR DISORDER 05/24/23 [History Last Taken 05/23/23] minoxidil 2.5 mg tablet 5 mg PO BID HAIR GROWTH 05/24/23 [History Last Taken 05/23/23] aripiprazole 30 mg tablet 60 mg PO DAILY 06/25/23 [History Last Taken Unknown] bumetanide 2 mg tablet 2 mg PO BID 06/25/23 [History Last Taken Unknown] labetalol 200 mg tablet 200 mg PO TID 06/25/23 [History Last Taken Unknown] Allergy/AdvReac Type Severity Reaction Status Date / Time No Known Allergies Allergy Verified 06/19/23 10:21 Family History Mother Diabetes Hypertension HLD (hyperlipidemia) Anemia Myocardial infarction Heart disease Kidney disease Father Hypertension HLD (hyperlipidemia) Bipolar disorder Diabetes Alcoholism Arthritis Depression Mental disorder Other CVA (cerebral vascular accident) Surgical History Hx of left knee surgery Hx of surgical procedure Hx of vascular surgery S/P arteriovenous (AV) fistula creation Status post insertion of hemodialysis catheter Social History household members: none current occupational status: employed and unemployed 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 CVS: Negative for chest pain. Respiratory: Negative for shortness of breath. GI: Positive for abdominal pain, nausea, vomiting. Neuro: Negative for headache. EXAM <FREDY Banks - Last Filed: 06/25/23 15:22> Physical Exam Narrative Exam Narrative: CONST: Patient actively vomiting. EYES: Normal inspection. NECK: Normal inspection. RESP: No respiratory distress, CTAB. CVS: Tachycardic with regular rhythm, no murmur, no gallop. ABD: Soft and reports tenderness to very light touch everywhere, no guarding or rebound, nondistended. SKIN: Skin breakdown over left upper extremity fistula, palpable thrill. EXTREMITIES: Normal appearance, no pedal edema. NEURO: Oriented x4. PSYCH: Normal affect. Const Vital Signs: 06/25/23 11:09 06/25/23 13:01 06/25/23 13:18 Temperature 96.9 F L Temperature Source Temporal Pulse Rate 94 180 H 121 H Respiratory Rate 16 21 H 23 H Respiratory Effort Blood Pressure 194/131 H 143/75 H 134/85 H Blood Pressure [12] Blood Pressure Mean 152 97 101 Pulse Ox 98 100 100 Oxygen Delivery Method Room Air Room Air Room Air 06/25/23 13:59 06/25/23 14:13 06/25/23 14:46 Temperature Temperature Source Pulse Rate 109 H Respiratory Rate 21 H Respiratory Effort Agonal Blood Pressure 137/66 H Blood Pressure [12] 88/18 L Blood Pressure Mean 89 Pulse Ox 91 79 Oxygen Delivery Method Room Air Ambu-Bag <Dr. Rakesh Orona DO - Last Filed: 06/25/23 16:29> Physical Exam Const Vital Signs: 06/25/23 11:09 06/25/23 13:01 06/25/23 13:18 Temperature 96.9 F L Temperature Source Temporal Pulse Rate 94 180 H 121 H Respiratory Rate 16 21 H 23 H Respiratory Effort Blood Pressure 194/131 H 143/75 H 134/85 H Blood Pressure [12] Blood Pressure Mean 152 97 101 Pulse Ox 98 100 100 Oxygen Delivery Method Room Air Room Air Room Air 06/25/23 13:59 06/25/23 14:13 06/25/23 14:46 Temperature Temperature Source Pulse Rate 109 H Respiratory Rate 21 H Respiratory Effort Agonal Blood Pressure 137/66 H Blood Pressure [12] 88/18 L Blood Pressure Mean 89 Pulse Ox 91 79 Oxygen Delivery Method Room Air Ambu-Bag [facility] <FREDY Banks - Last Filed: 06/25/23 15:22> [facility] Narrative Medical decision making narrative: Patient has had a month of nausea/vomiting and abdominal pain despite completing antibiotics for diverticulitis. He is hypertensive and has not been able to keep down his medications. He is also not had dialysis for a week due to left arm fistula issues and is post to see vascular surgery tomorrow. He also was feeling suicidal given the stressors going on. On initial exam he is actively vomiting. After Zofran he is resting more comfortably. BP is 190/131 and he is in sinus tach around 140 bpm so IV labetalol was ordered; the rest of his vital signs are stable. Heart is regular and lungs clear. He has soft abdomen with generalized tenderness. Most recent scan was 06/05/2023 showing improved sigmoid diverticulitis but with persistent symptoms repeat blood work and scan will be ordered. Labs show white count of 11.4 and chronic anemia at 10.4. Hypokalemia of 2.6, hypomagnesium 0.9, creatinine 5.7, and elevated LFTs which appears chronic. Originally patient was in sinus tachycardia around 140 and then became more tachycardic in the 170s. It was hard to tell if this was narrow complex SVT versus sinus tachycardia. Patient was given IV Cardizem and IV potassium and magnesium. Heart rate improved around 115 and appears to be sinus tachycardia. Patient has returned from CT scan was pending results when he became unresponsive and and went into cardiac arrest. Please see attending note for further details. Patient was intubated but ultimately . I have personally performed a face to face assessment of the patient and have reviewed the JOSE Note. I performed a substantive portion of the visit including all aspects of the following. My mckeon findings include: History is [patient presents to the emergency department complaint of abdominal pain for about a month. Patient states has been vomiting and cannot keep anything down. States he has not been to dialysis for about a week. Patient scheduled to see his vascular surgeon to evaluate his fistula tomorrow. Patient was last admitted about 1 month ago for abdominal pain and diagnosed with diverticulitis. Patient now feeling suicidal given his medical conditions and wants to slice his wrists. Patient presented hypertensive and states he cannot keep any of his medications down.] Exam is [HEENT-PERRLA, EOMI. Cranial nerves II through XII grossly intact. TMs clear. Mucous membranes moist. No adenopathy. Cardiovascular-regular rate and rhythm without murmur or ectopy Lungs-clear to auscultation, chest wall stable without crepitus or subcu emphysema Abdomen-normoactive bowel sounds, soft. Patient has diffuse tenderness to palpation throughout. There are some guarding. No rebound or rigidity. Extremities-intact ?4, normal range of motion, normal pulses, atraumatic] Medical Decison Making [patient presented with vomiting and abdominal pain. He missed dialysis for the last week or so. He is feeling suicidal. He denies making any attempt on his life or taking any overdoses. IV line established. He was medicated with saline. CBC with differential count 11.4 with hemoglobin 10.4 and platelet count of 162. Chemistries show sodium 140 potassium 2.6 with chloride 93 and CO2 27 BUN 14 creatinine 5.7. Glucose was 116. LFTs did show slight elevations with a total bili of 1.4 and AST 165 and ALT of 88 and alk phos of 367. Talk screen was negative. Tylenol level negative and salicylate level was negative. While in the department he had episodes of tachycardia with heart rates in the 170s to 180s that I suspected may be A-fib or SVT. We did give him Cardizem 20 mg IV bolus that brought his heart rate down in the 110s and on EKG showed just sinus tachycardia. Showed a prolonged QT. Magnesium returned depressed at 0.9 and he did receive 2 g of magnesium IV. Received potassium IV. While awaiting CT results patient became unresponsive and started to have what look like seizure type activity and foaming at the mouth. On monitor he was noted to have torsades de pointes. Patient was cardioverted into a sinus rhythm and then in a sinus bradycardia. Patient was unresponsive and was given a milligram of Ativan and intubated with a 7.5 ET tube without difficulty. He continued to have sinus bradycardia with tempted to externally pace him unsuccessfully. Patient went into PEA and CPR was started. Patient underwent multiple rounds of epinephrine. I did give sodium bicarb as well as amiodarone. Despite our best efforts patient was unable to be resuscitated. Patient had dilated and fixed pupils. Ultrasound at the bedside does not reveal any cardiac activity.] Other additions or changes: [None] Lab Data Attestation: I reviewed the patient's lab results. Labs: Laboratory Results - last 24 hr 06/25/23 06/25/23 06/25/23 11:50 12:33 12:50 WBC 11.4 H RBC 3.32 L Hgb 10.4 L Hct 30.7 L MCV 92.5 MCH 31.3 MCHC 33.9 RDW Std Deviation 53.1 H RDW Coeff of [place] 16.0 H Plt Count 162 MPV 10.4 Immature Gran % (Auto) 0.800 Neut % (Auto) 78.5 H Lymph % (Auto) 13.2 L [place] % (Auto) 6.2 Eos % (Auto) 0.5 Baso % (Auto) 0.8 Absolute Neuts (auto) 8.9 H Absolute Lymphs (auto) 1.50 Nucleated RBC % 0 Sodium 140 Potassium 2.6 L* Chloride 93 L Carbon Dioxide 27.0 Anion Gap 20 H BUN 40 H Creatinine 5.70 H Estim Creat Clear Calc 18.33 Est GFR (MDRD) Af Amer 15 L Est GFR (MDRD) Non-Af 13 L BUN/Creatinine Ratio 7.0 L Glucose 116 H Calcium 8.2 L Magnesium 0.9 L* Total Bilirubin 1.40 H AST 165 H ALT 88 H Alkaline Phosphatase 367 H Troponin I High Sens 30 Total Protein 7.9 Albumin 3.2 Globulin 4.7 H Albumin/Globulin Ratio 0.7 L Lipase 43 Salicylates < 1.7 L Urine Opiates Screen NEGATIVE Urine Methadone Screen NEGATIVE Acetaminophen < 2.0 L Ur Barbiturates Screen NEGATIVE Ur Phencyclidine Scrn NEGATIVE Ur Amphetamines Screen NEGATIVE MDMA (Ecstasy) Screen NEGATIVE U Benzodiazepines Scrn NEGATIVE Urine Cocaine Screen NEGATIVE U Cannabinoids Screen NEGATIVE Ur Drug Screen Comment Ethyl Alcohol 3.0 POC Glucose 113 H 06/25/23 14:42 WBC RBC Hgb Hct MCV MCH MCHC RDW Std Deviation RDW Coeff of [place] Plt Count MPV Immature Gran % (Auto) Neut % (Auto) Lymph % (Auto) [place] % (Auto) Eos % (Auto) Baso % (Auto) Absolute Neuts (auto) Absolute Lymphs (auto) Nucleated RBC % Sodium Potassium Chloride Carbon Dioxide Anion Gap BUN Creatinine Estim Creat Clear Calc Est GFR (MDRD) Af Amer Est GFR (MDRD) Non-Af BUN/Creatinine Ratio Glucose Calcium Magnesium Total Bilirubin AST ALT Alkaline Phosphatase Troponin I High Sens Total Protein Albumin Globulin Albumin/Globulin Ratio Lipase Salicylates Urine Opiates Screen Urine Methadone Screen Acetaminophen Ur Barbiturates Screen Ur Phencyclidine Scrn Ur Amphetamines Screen MDMA (Ecstasy) Screen U Benzodiazepines Scrn Urine Cocaine Screen U Cannabinoids Screen Ur Drug Screen Comment Ethyl Alcohol POC Glucose 61 L Radiography Diagnostic Testing: Clinical Impression(s) from Imaging Studies Abdomen/Pelvis CT 06/25/23 11:30 IMPRESSION: 1. Persistent wall thickening of the sigmoid colon likely related to acute colitis. Persistent wall thickening of the remainder of the large bowel suggestive of chronic colitis. 2. Severe hepatic steatosis. Electronically Signed: Tani Juan MD at 14:21 EST , EKG Initial EKG: Attestation: I personally reviewed and interpreted this EKG as follows: Comments: Sinus tachycardia at [address] changes <Dr. Rakesh Orona, DO - Last Filed: 06/25/23 16:29> [facility] Narrative Medical decision making narrative: Patient has had a month of nausea/vomiting and abdominal pain despite completing antibiotics for diverticulitis. He is hypertensive and has not been able to keep down his medications. He is also not had dialysis for a week due to left arm fistula issues and is post to see vascular surgery tomorrow. He also was feeling suicidal given the stressors going on. On initial exam he is actively vomiting. After Zofran he is resting more comfortably. BP is 190/131 and he is in sinus tach around 140 bpm so IV labetalol was ordered; the rest of his vital signs are stable. Heart is regular and lungs clear. He has soft abdomen with generalized tenderness. Most recent scan was 06/05/2023 showing improved sigmoid diverticulitis but with persistent symptoms repeat blood work and scan will be ordered. Labs show white count of 11.4 and chronic anemia at 10.4. Hypokalemia of 2.6, hypomagnesium 0.9, creatinine 5.7, and elevated LFTs which appears chronic. Originally patient was in sinus tachycardia around 140 and then became more tachycardic in the 170s. It was hard to tell if this was narrow complex SVT versus sinus tachycardia. Patient was given IV Cardizem and IV potassium and magnesium. Heart rate improved around 115 and appears to be sinus tachycardia. Patient has returned from CT scan was pending results when he became unresponsive and and went into cardiac arrest. Please see attending note for further details. Patient was intubated but ultimately . I have personally performed a face to face assessment of the patient and have reviewed the JOSE Note. I performed a substantive portion of the visit including all aspects of the following. My mckeon findings include: History is [patient presents to the emergency department complaint of abdominal pain for about a month. Patient states has been vomiting and cannot keep anything down. States he has not been to dialysis for about a week. Patient scheduled to see his vascular surgeon to evaluate his fistula tomorrow. Patient was last admitted about 1 month ago for abdominal pain and diagnosed with diverticulitis. Patient now feeling suicidal given his medical conditions and wants to slice his wrists. Patient presented hypertensive and states he cannot keep any of his medications down.] Exam is [HEENT-PERRLA, EOMI. Cranial nerves II through XII grossly intact. TMs clear. Mucous membranes moist. No adenopathy. Cardiovascular-regular rate and rhythm without murmur or ectopy Lungs-clear to auscultation, chest wall stable without crepitus or subcu emphysema Abdomen-normoactive bowel sounds, soft. Patient has diffuse tenderness to palpation throughout. There are some guarding. No rebound or rigidity. Extremities-intact ?4, normal range of motion, normal pulses, atraumatic] Medical Decison Making [patient presented with vomiting and abdominal pain. He missed dialysis for the last week or so. He is feeling suicidal. He denies making any attempt on his life or taking any overdoses. IV line established. He was medicated with saline. CBC with differential count 11.4 with hemoglobin 10.4 and platelet count of 162. Chemistries show sodium 140 potassium 2.6 with chloride 93 and CO2 27 BUN 14 creatinine 5.7. Glucose was 116. LFTs did show slight elevations with a total bili of 1.4 and AST 165 and ALT of 88 and alk phos of 367. Talk screen was negative. Tylenol level negative and salicylate level was negative. While in the department he had episodes of tachycardia with heart rates in the 170s to 180s that I suspected may be A-fib or SVT. We did give him Cardizem 20 mg IV bolus that brought his heart rate down in the 110s and on EKG showed just sinus tachycardia. Showed a prolonged QT. Magnesium returned depressed at 0.9 and he did receive 2 g of magnesium IV. Received potassium IV. While awaiting CT results patient became unresponsive and started to have what look like seizure type activity and foaming at the mouth. On monitor he was noted to have torsades de pointes. Patient was cardioverted into a sinus rhythm and then in a sinus bradycardia. Patient was unresponsive and was given a milligram of Ativan and intubated with a 7.5 ET tube without difficulty. He continued to have sinus bradycardia with tempted to externally pace him unsuccessfully. I discussed case with cardiology on-call Dr. Alejandro who had Dr. Hardwick call back due to the concern that I had about patient po ssibly requiring transvenous pacing. Patient went into cardiac arrest. Patient went into PEA and CPR was started. Patient underwent multiple rounds of epinephrine. I did give sodium bicarb as well as amiodarone. Despite our best efforts patient was unable to be resuscitated. Patient had dilated and fixed pupils. Ultrasound at the bedside does not reveal any cardiac activity.] Time of was called at 1502. Other additions or changes: [None] Lab Data Labs: Laboratory Results - last 24 hr 06/25/23 06/25/23 06/25/23 11:50 12:33 12:50 WBC 11.4 H RBC 3.32 L Hgb 10.4 L Hct 30.7 L MCV 92.5 MCH 31.3 MCHC 33.9 RDW Std Deviation 53.1 H RDW Coeff of [place] 16.0 H Plt Count 162 MPV 10.4 Immature Gran % (Auto) 0.800 Neut % (Auto) 78.5 H Lymph % (Auto) 13.2 L [place] % (Auto) 6.2 Eos % (Auto) 0.5 Baso % (Auto) 0.8 Absolute Neuts (auto) 8.9 H Absolute Lymphs (auto) 1.50 Nucleated RBC % 0 Sodium 140 Potassium 2.6 L* Chloride 93 L Carbon Dioxide 27.0 Anion Gap 20 H BUN 40 H Creatinine 5.70 H Estim Creat Clear Calc 18.33 Est GFR (MDRD) Af Amer 15 L Est GFR (MDRD) Non-Af 13 L BUN/Creatinine Ratio 7.0 L Glucose 116 H Calcium 8.2 L Magnesium 0.9 L* Total Bilirubin 1.40 H AST 165 H ALT 88 H Alkaline Phosphatase 367 H Troponin I High Sens 30 Total Protein 7.9 Albumin 3.2 Globulin 4.7 H Albumin/Globulin Ratio 0.7 L Lipase 43 Salicylates < 1.7 L Urine Opiates Screen NEGATIVE Urine Methadone Screen NEGATIVE Acetaminophen < 2.0 L Ur Barbiturates Screen NEGATIVE Ur Phencyclidine Scrn NEGATIVE Ur Amphetamines Screen NEGATIVE MDMA (Ecstasy) Screen NEGATIVE U Benzodiazepines Scrn NEGATIVE Urine Cocaine Screen NEGATIVE U Cannabinoids Screen NEGATIVE Ur Drug Screen Comment Ethyl Alcohol 3.0 POC Glucose 113 H 06/25/23 14:42 WBC RBC Hgb Hct MCV MCH MCHC RDW Std Deviation RDW Coeff of [place] Plt Count MPV Immature Gran % (Auto) Neut % (Auto) Lymph % (Auto) [place] % (Auto) Eos % (Auto) Baso % (Auto) Absolute Neuts (auto) Absolute Lymphs (auto) Nucleated RBC % Sodium Potassium Chloride Carbon Dioxide Anion Gap BUN Creatinine Estim Creat Clear Calc Est GFR (MDRD) Af Amer Est GFR (MDRD) Non-Af BUN/Creatinine Ratio Glucose Calcium Magnesium Total Bilirubin AST ALT Alkaline Phosphatase Troponin I High Sens Total Protein Albumin Globulin Albumin/Globulin Ratio Lipase Salicylates Urine Opiates Screen Urine Methadone Screen Acetaminophen Ur Barbiturates Screen Ur Phencyclidine Scrn Ur Amphetamines Screen MDMA (Ecstasy) Screen U Benzodiazepines Scrn Urine Cocaine Screen U Cannabinoids Screen Ur Drug Screen Comment Ethyl Alcohol POC Glucose 61 L Radiography Diagnostic Testing: Clinical Impression(s) from Imaging Studies Abdomen/Pelvis CT 06/25/23 11:30 IMPRESSION: 1. Persistent wall thickening of the sigmoid colon likely related to acute colitis. Persistent wall thickening of the remainder of the large bowel suggestive of chronic colitis. 2. Severe hepatic steatosis. Electronically Signed: Tani Juan MD at 14:21 EST , <Dr. Rakesh Orona, DO - Last Filed: 06/25/23 16:29> Critical Care Time Critical care time (excluding procedures): 30-74 minutes, Including time spent:, Discussing w/Patient &/or Family/Dietitian Research, Discussing w/Consultants, Arranging Admission or Transfer, Performing Direct Patient Care at Bedside and - (45 minutes) Discharge Plan Triage Chief Complaint: Suicidal ED Midlevel Provider: Scarlet Hutchins ED Provider: Rakesh Orona Dx/Rx/DC Orders Clinical Impression: Cardiopulmonary arrest, Colitis, History of end stage renal disease, Nausea and vomiting, Acute hypokalemia, Hypomagnesemia, Suicidal ideation, Noncompliance with medication regimen Prescriptions: No Action amlodipine 10 mg tablet 10 mg PO BID Qty: 180 3RF doxazosin 8 mg tablet 8 mg PO QHS Qty: 90 3RF doxepin 10 mg capsule 10 mg PO DAILY PRN (Reason: sleep) sevelamer carbonate 800 mg tablet 800 mg PO TIDCM carvedilol 6.25 mg Tablet 6.25 mg PO BID Qty: 60 0RF ondansetron 4 mg tablet,disintegrating 4 mg PO TID PRN (Reason: NAUSEA/VOMITING) Qty: 21 0RF Patient Comments: PT STATES THAT THEY FEEL LIKE THEY NEED TO TAKE THIS DAILY AND NOT JUST NEEDED ( OF 05-24-23) clonidine 0.3 mg/24 hr patch weekly 1 patch transdermal TU cholecalciferol (vitamin D3) 1,250 mcg (50,000 unit) capsule 1,250 mcg PO MOWEFR Patient Comments: THIS MEDICATION IS TAKEN BEFORE DIALYSIS ON MONDAYS/WEDNESDAYS/FRIDAYS lurasidone 20 mg tablet 20 mg PO QPM Rx Instructions: TAKE 1 TABLET BY MOUTH EVERY EVENING WITH FOOD (AT LEAST 350 CALORIES) minoxidil 2.5 mg tablet 5 mg PO BID aripiprazole 30 mg tablet 60 mg PO DAILY bumetanide 2 mg tablet 2 mg PO BID labetalol 200 mg tablet 200 mg PO TID aspirin 81 mg tablet,delayed release (DR/EC) 81 mg PO BREAKFAST Qty: 30 2RF omeprazole 40 mg capsule,delayed release(DR/EC) 40 mg PO DAILY Qty: 30 5RF Primary Care Provider: Linn Ware Referrals: Linn Ware MD [Primary Care Provider] - Disposition Disposition:
--- NOTE | 2023-06-25 11:34 | EKG12_ITS ---
Test Reason : REPEAT Blood Pressure : / mmHG Vent. Rate : 150 BPM Atrial Rate : 115 BPM P-R Int : 000 ms QRS Dur : 142 ms QT Int : 262 ms P-R-T Axes : 000 -07 203 degrees QTc Int : 413 ms Critical Test Result: High HR , Arrhythmia Atrial fibrillation Wide complex tachycardia Non-specific intra-ventricular conduction block Abnormal ECG Confirmed by SHABBIR HAYS, SYL ([id number]), editorial assistant JARAD ESTRADA ([id number]) on 06/26/2023 10:18:25 AM Referred By: Confirmed By:YSL SHEA MD
[2023-06-25] MEDS: Ondansetron 4 MG/2 ML Vial IV ×2 (12:01→12:55)
[2023-06-25 12:02] LABS: Absolute Neutrophil Count 8.9 X10^3/uL (2.0-7.7); Basophil# 0.09 X10^3/uL; Basophil% 0.8 % (0-1); Eosinophil# 0.06 X10^3/uL; Eosinophils% 0.5 % (0-5); Hematocrit 30.7 % (40-54); Hemoglobin 10.4 g/dL (13.0-16.5); Lymphocyte % 13.2 % (19-41); Mean Corp Hgb Conc 33.9 g/dL (32-36); Mean Corpuscular Hgb 31.3 pg (27.0-32.0); Mean Corpuscular Volume 92.5 fL (80-94); Mean Platelet Vol. 10.4 fl (6.2-12.0); Monocyte# 0.71 X10^3/uL; Monocyte% 6.2 % (0-10); NRBC Flagged by Analyzer 0 % (0-5); Neutrophil # 8.93 X10^3/uL (2.7-7.7); Neutrophil % 78.5 % (47-70); Platelet Count 162 K/mm3 (150-450); RBC Distribution Width SD 53.1 fl (35.1-43.9); Red Blood Count 3.32 M/mm3 (4.6-6.2); White Blood Count 11.4 K/mm3 (4.4-11.0)
[2023-06-25] MEDS: 0.9% Normal Saline (1000mL) 1,000 ML 999 ML IV (12:02)
[2023-06-25] MEDS: Labetalol (Prefilled) 20 MG/4 ML 10 MG IV (12:05)
--- NOTE | 2023-06-25 12:25 | EKG12_ITS ---
Test Reason : SI Blood Pressure : / mmHG Vent. Rate : 143 BPM Atrial Rate : 143 BPM P-R Int : 136 ms QRS Dur : 084 ms QT Int : 264 ms P-R-T Axes : 029 005 215 degrees QTc Int : 407 ms Critical Test Result: High HR Sinus tachycardia Right atrial enlargement ST depression, consider subendocardial injury Nonspecific T wave abnormality Abnormal ECG Confirmed by SHABBIR HAYS, SYL ([id number]), international editorial producer JARAD ESTRADA ([id number]) on 06/26/2023 10:17:46 AM Referred By: Confirmed By:SYL SHEA MD
[2023-06-25 12:33] LABS: ALB/GLOB Ratio 0.7 RATIO (0.9-2.4); AST(SGOT) 165 U/L (15-37); Alanine Aminotransfer ALT/SGPT 88 U/L (16-61); Albumin, Serum 3.2 g/dL (3.2-5.0); Alkaline Phosphatase 367 U/L (45-117); Anion Gap 20 (5-15); BUN 40 mg/dL (7-18); Calcium,Total 8.2 mg/dL (8.5-10.1); Chloride 93 mmol/L (98-107); EST Glomerular Filtration Rate 13 mL/min (>60); Est Glom Filt Rate - Afr Amer 15 mL/min (>60); Estimated Creatinine Clearance 18.33 ml/min; Globulin 4.7 g/dL (2.2-4.2); Glucose 116 mg/dL (74-106); Lipase 43 U/L (13-75); Potassium 2.6 mmol/L (3.5-5.1); Protein, Total 7.9 g/dL (6.4-8.2); Sodium Level 140 mmol/L (136-145)
[2023-06-25] MEDS: Morphine 4 MG/ML Syringe IV ×2 (12:40→13:58)
[2023-06-25 12:50] LABS: Bedside Glucose 113 mg/dL (74-106)
[2023-06-25] MEDS: Potassium Chloride 10mEq/100mL 10 MEQ/100 ML IV.SOLN. 100 MEQ IV BOLUS ×2 (12:55→13:58)
[2023-06-25] MEDS: dilTIAZem 25 MG/5 ML Vial 20 MG IV BOLUS (13:04)
--- NOTE | 2023-06-25 13:15 | EKG12_ITS ---
Test Reason : REPEAT Blood Pressure : / mmHG Vent. Rate : 142 BPM Atrial Rate : 066 BPM P-R Int : 116 ms QRS Dur : 078 ms QT Int : 416 ms P-R-T Axes : -21 002 014 degrees QTc Int : 639 ms Critical Test Result: High HR , Arrhythmia Undetermined rhythm -Atrial Fibrillation Nonsustained VTach Abnormal ECG Confirmed by SHABBIR HAYS, SYL ([id number]), newspaper editor JARAD ESTRADA ([id number]) on 06/26/2023 10:13:03 AM Referred By: Confirmed By:SYL SHEA MD
[2023-06-25 13:51] LABS: Magnesium 0.9 mg/dL (1.6-2.6)
[2023-06-25 14:00] LABS: Troponin-I HS 30 pg/mL (3.0-78.0)
[2023-06-25] MEDS: Lorazepam 2 MG/ML WCH Syringe 1 MG IV (14:12)
[2023-06-25] MEDS: Atropine Sulfate 1 MG/10 ML Syringe IV ×2 (14:18→14:25)
[2023-06-25 14:21] LABS: Acetaminophen (Tylenol) Level < 2.0 ug/mL (10.0-30.0); Salicylate < 1.7 mg/dL (2.8-20.0)
[2023-06-25] MEDS: Dextrose 50%-Water 25 GM/50 ML DISP.SYRIN IV (14:25)
--- NOTE | 2023-06-25 14:46 | NURSING ---
CODE BLUE CALLED
--- NOTE | 2023-06-25 14:52 | ED.RN ---
called friend Kellie, listed as contact. she will be coming to the ER. Called friend, Natanael with phone not in service. Kellie also stated she was unable to get ahold of this friend.
[2023-06-25] MEDS: [UNRECOGNIZED DRUG - REMARK] IV (15:07)
--- NOTE | 2023-06-25 15:14 | NURSING ---
Epi 1 mg given prior to code at 1428, 1432, and 1449, unable to order on JUL unless ordered as infusion
[2023-06-25 15:34] LABS: Bedside Glucose 61 mg/dL (74-106)
[2023-06-25 18:50] LABS: Bedside Glucose 50 mg/dL (74-106)
== END 2023-06-25 15:03 ==
PROVIDERS: Physician Assistant; Emergency Provider Emergency Medicine; PCP Internal Medicine; Visit Provider Emergency Medicine
DX: I46.9 Cardiac arrest, cause unspecified (principal); I13.2 Hypertensive heart and chronic kidney disease with heart failure and with stage 5 chronic kidney disease, or end stage renal disease; N18.6 End stage renal disease; I50.30 Unspecified diastolic (congestive) heart failure; F31.9 Bipolar disorder, unspecified; Z99.2 Dependence on renal dialysis; E87.6 Hypokalemia; E83.42 Hypomagnesemia; Z79.82 Long term (current) use of aspirin; Z79.899 Other long term (current) drug therapy; K21.9 Gastro-esophageal reflux disease without esophagitis; F17.210 Nicotine dependence, cigarettes, uncomplicated; F17.290 Nicotine dependence, other tobacco product, uncomplicated; K52.9 Noninfective gastroenteritis and colitis, unspecified; R11.2 Nausea with vomiting, unspecified; R45.851 Suicidal ideations; Z91.148 Patient's other noncompliance with medication regimen for other reason
CPT/HCPCS: 36591; 51702; 80307; J7050 ×2; 31500; 74176; 80053; 80320; 80329; 82962; 83690; 83735; 84484; 85025; 92950; 92953; 93005; 94002; 99285; J7030; A4216; G0480; J2405; J3475; J3490